=== PATIENT | female | born 1985 | race African-American/Black ===

== ENCOUNTER 2023-09-23 13:59 | Emergency (ER) | payer OTHER, SELFPAY ==
[2023-09-23 14:27] VITALS: BP 121/75; PULSE 87; RESP 18; TEMP 36.7; O2SAT 100; BMI 25.0
--- NOTE | 2023-09-23 14:29 | ED.GENADULT ---
HPI - General Adult General Chief complaint: Extremity Injury, Lower Stated complaint: fell down stairs r shoulder inj 09/13 Time Seen by Provider: 09/23/23 17:50 Source: patient Mode of arrival: ambulatory Limitations: no limitations History of Present Illness ED Provider: Evelyn FINNEGAN narrative: Patient is a 38-year-old female presenting to the emergency department with complaint of severe right shoulder pain. She reports that she fell down 4-5 stairs at work on 09/13 and that is when her pain began. She was evaluated in the emergency department at [facility] that day and diagnosed with a rotator cuff injury. She was offered pain control at that time but she declined as she has a 1-year-old and did not want any narcotic pain medication. She then followed up with [facility] orthopedics and was advised that she will need surgical repair of her rotator cuff injury. She has been alternating Tylenol and ibuprofen, but pain is severe. She states that she does not have her daughter with her for the next few days, so she would like something stronger for her pain. She attempted to contact the [facility] orthopedics office but was told they could not see her in the office until Saturday. She went to the [facility] urgent care and was offered a shot of toradol but no prescription and was advised to come to the ED for pain control. She denies any new numbness or tingling. complaint: right shoulder pain Related Data Previous Rx's ?Medication ?Instructions ?Recorded oxycodone 5 mg capsule 5 mg PO Q6H PRN severe pain (scale 09/23/23 score 7-10) #8 caps Allergies Allergy/AdvReac Type Severity Reaction Status Date / Time No Known Allergies Allergy Verified 09/23/23 14:31 Review of Systems Review of Systems: As per HPI. Yes all other systems are reviewed and are negative Constitutional: Constitutional: Reports as per HPI [facility] Social History Social History Advance Directives: No Advance Directives Information Provided: No Do you have a plan to hurt others: No Plan Physical Exam ED Vital Signs: Vital Signs - 24 hr 09/23/23 14:27 Temperature 98.1 F Pulse Rate 87 Respiratory Rate 18 Blood Pressure 121/75 Pulse Oximetry 100 Oxygen Delivery Method Room Air BMI result Body Mass Index 25.0 Vital signs have been reviewed and appear to be correct. Blood pressure normal. Heart rate normal. Respiratory rate normal. Temperature normal. Oxygen saturation normal. Const General: cooperative, healthy appearing and no acute distress Orientation/consciousness: oriented to person, oriented to place, oriented to time and patient oriented x3 Limitations: no limitations HENMT Head: Yes normocephalic and Yes atraumatic Ears: external ears normal General nose exam: Normal external nose present Face and sinus: Yes face symmetric Mouth: oropharynx normal and moist mucous membranes Throat: Yes uvula midline Eyes Pupils: Equal, round and reactive pupils present Neck Neck: Yes normal visual inspection and Yes supple Resp Effort & Inspection: normal respiratory effort and able to speak in complete sentences Auscultation: clear to auscultation bilaterally Cardio Rate: regular rate Rhythm: regular rhythm Heart sounds: S1 normal heart sound present and S2 normal heart sound present GI Palpation (GI): Soft to palpation and nontender Auscultation: normoactive bowel sounds General: Yes no CVA tenderness Back/Spine/Pelvis Back: no CVA tenderness Skin General skin exam: elasticity normal and turgor normal Neuro General: oriented to person, oriented to place, oriented to time, patient oriented x3, moves all extremities, no focal motor deficits and CN's II-XI intact bilaterally Cranial nerves: Yes Equal, round and reactive pupils present Cognition (Neuro): normal cognition Extrem General: Yes full ROM, Yes no pedal edema and Yes no calf tenderness Right upper extremity: shoulder/upper arm Details: normal to inspection and abnormal ROM Details: held in an abnormal fashion Details: in ADduction and with range as follows (extremely limited in all directions due to pain) and Extremity exam: right hand Details: vascular exam Details: radial pulse present and normal ROM of fingers Psych Mental Status: mental status grossly normal Affect: normal affect Thought process: Normal thought process present Course Course Course Narrative: RME performed by Frannie Garcia PA-C. Patient is a 38 year old assigned female at presenting to the emergency department with a right shoulder injury. Patient states that she was evaluated for this and found to have a rotator cuff injury. Patient states that the orthopedic group can't get her in any sooner than Saturday but recommended she come here for pain management. Detailed physical exam and review of systems are deferred to the primary school principal. Patient placed back in the waiting room pending room availability. Medical Decision Making Medical Decision Making MDM Narrative: Patient is a 38-year-old female presenting to the emergency department with complaint of severe right shoulder pain. On exam patient is awake, A+Ox3, VS WNL, afebrile, normal neurological exam without focal deficits, physical exam findings as above. Given reported symptoms and physical exam findings, initial differential includes rotator cuff strain/sprain/tear, uncontrolled pain. Do not feel additional imaging is indicated at this time as patient has already had evaluation and is waiting orthopedic management. Physical exam findings are consistent with rotator cuff injury. No concerns on review of PROTECTIVE SIGNAL INSTALLER HELPER. Will prescribe short course of oxycodone advised patient to continue with Tylenol and ibuprofen as well. Patient has follow-up appointment with [facility] Orthopedics on Saturday, 09/24. Return precautions discussed at bedside. Patient verbalized understanding of and agreement with plan. Differential Diagnosis Differential Diagnoses: The differential diagnosis associated with the presentation includes As per MDM. External Record Review External record reviewed: Inpatient record, Office record, Outpatient record and Other Tests considered The following testing was considered but not selected: Considered x-ray, however patient has already been evaluated at an outside emergency department for this injury. Prescription Management I considered prescription management with: Pain Medication Discharge Plan Discharge Clinical Impression: Acute pain of right shoulder Patient Disposition: Home, Self-Care Instructions: Oxycodone, Rapid Release (By mouth) Additional Instructions: You were seen in the emergency department today for pain control for known rotator cuff injury. You are being prescribed a short course of oxycodone to control your pain until follow-up with Orthopedics on Saturday. We recommend that you continue to alternate Tylenol and ibuprofen every 3 hours for pain and use the oxycodone for severe pain. Continue to apply ice intermittently. Return to the emergency department with new or concerning symptoms. Your prescription was sent to the [facility] at [address] [place] [address] in [place], [place]. Prescriptions: New oxycodone 5 mg capsule 5 mg PO Q6H PRN (Reason: severe pain (scale score 7-10)) Qty: 8 0RF Rx Instructions: Partial Fill upon patient request. Print Language: Gibraltarian
[2023-09-23 18:19] VITALS: BP 124/78; PULSE 72; RESP 16; TEMP 36.8; O2SAT 100
[2023-09-23 18:39] VITALS: BP 124/78; PULSE 72; RESP 16; TEMP 36.8; O2SAT 100
== END 2023-09-23 18:40 | disposition home or self-care (01) ==
PROVIDERS: Emergency Provider Student in an Organized Health Care Education/Training Program
DX: M25.511 Pain in right shoulder (principal)
CPT/HCPCS: 99282; 99283

== ENCOUNTER 2024-01-19 04:51 | Emergency (ER) | payer SELFPAY ==
[2024-01-19 05:03] VITALS: BP 125/87; PULSE 87; RESP 18; TEMP 36.6; O2SAT 99; BMI 26.8
--- NOTE | 2024-01-19 05:05 | ED.ABDPAIN ---
HPI - Abdominal Pain General Chief Complaint: Urogenital-Female Stated Complaint: vomiting Time Seen by Provider: 01/19/24 05:01 Source: patient Mode of arrival: ambulatory Limitations: no limitations History of Present Illness ED Provider: thad FINNEGAN narrative: Patient's history of medullary sponge kidney with multiple kidney stones status post stent placement supposed to get surgery for 9 mm and 10 mm stone in the right kidney been having pain off and on patient came here with a daughter who was sick during stay in the ER patient got more pain pain is localized to the right flank area no gross hematuria no fever or chills does have nausea and vomited 1 time in the ER patient has had CT scan ultrasound done prior to our evaluation Related Data Previous Rx's ?Medication ?Instructions ?Recorded oxycodone 5 mg capsule 5 mg PO Q6H PRN severe pain (scale 09/23/23 score 7-10) #8 caps ondansetron 4 mg disintegrating 4 mg PO Q6-8H PRN nausea and 01/19/24 tablet vomiting #7 tabs oxycodone-acetaminophen 5 mg-325 1 tab PO Q6H PRN pain #20 tabs 01/19/24 mg tablet (Percocet) tamsulosin 0.4 mg capsule (Flomax) 0.4 mg PO BEDTIME #10 caps 01/19/24 Allergies Allergy/AdvReac Type Severity Reaction Status Date / Time No Known Allergies Allergy Verified 01/19/24 05:11 Review of Systems Review of Systems Yes all other systems are reviewed and are negative PMFSH Past Medical History Medical History (Updated 01/19/24 @ 05:54 by Holger Davenport MD) Kidney stone Medullary sponge kidney Social History Social History Smoked in Last 30 Days: No Use of substances other than those prescribed or required for medical reasons: No Advance Directives: No Patient : No Physical Exam ED Vital Signs: Vital Signs - 24 hr 01/19/24 05:03 01/19/24 06:09 Temperature 97.8 F 97.8 F Pulse Rate 87 87 Respiratory Rate 18 18 Blood Pressure 125/87 125/87 Pulse Oximetry 99 99 Oxygen Delivery Method Room Air Room Air BMI result Body Mass Index 26.8 Appearance: Alert. Oriented X3. Moderate distress Eyes: PERRLA, No Nystagmus ENT: Pharynx normal. Oral Mucosa moist Neck: Normal inspection. Neck supple. CVS: Normal heart rate and rhythm. Pulses normal. Respiratory: No respiratory distress. Equal air entry bilateral, no wheezing/rales/rhonchi Abdomen: Soft and nontender. Bowel sounds are present, no mass palpable, right CVA tenderness Skin: Skin warm and dry. Normal skin color. Normal skin turgor. Neuro: Oriented X 3. Medications Administered Discontinued Medications Generic Name Dose Route Start Last Admin Trade Name Freq PRN Reason Stop Dose Admin Morphine Sulfate 15 mg 01/19/24 05:01 01/19/24 05:10 Morphine Sulfate Immed Release 15 Mg Tablet PO 01/19/24 05:02 15 mg ONCE ONE Administration Ondansetron HCl 4 mg 01/19/24 05:01 01/19/24 05:09 Ondansetron Odt 4 Mg Tab.Rapdis TRANSLINGU 01/19/24 05:02 4 mg ONCE ONE Administration Tamsulosin HCl 0.4 mg 01/19/24 05:02 01/19/24 05:10 Tamsulosin Hcl 0.4 Mg Capsule PO 01/19/24 05:03 0.4 mg ONCE ONE Administration Discharge Plan Discharge Clinical Impression: Kidney stone on right side Patient Disposition: Home, Self-Care Instructions: Kidney Stones (ED) Additional Instructions: Drink plenty of fluids Pain medication as prescribed Flomax daily till you pass the stone Follow up with urologist Prescriptions: New oxycodone-acetaminophen [Percocet] 5-325 mg tablet 1 tab PO Q6H PRN (Reason: pain) Qty: 20 0RF Rx Instructions: Partial Fill upon patient request. ondansetron 4 mg tablet,disintegrating 4 mg PO Q6-8H PRN (Reason: nausea and vomiting) Qty: 7 0RF tamsulosin [Flomax] 0.4 mg capsule 0.4 mg PO BEDTIME Qty: 10 0RF No Action oxycodone 5 mg capsule 5 mg PO Q6H PRN (Reason: severe pain (scale score 7-10)) Qty: 8 0RF Rx Instructions: Partial Fill upon patient request. Interventions: ED Discharge Assessment Last Done: 01/19/24 06:09 Discharge Date/Time: 01/19/24 06:14 Print Language: Palestinian
[2024-01-19] MEDS: Ondansetron ODT 4 MG TAB.RAPDIS TRANSLINGU (05:09)
[2024-01-19] MEDS: Morphine Sulfate Immed Release 15 MG TABLET PO (05:10)
[2024-01-19] MEDS: Tamsulosin HCL 0.4 MG CAPSULE PO (05:10)
[2024-01-19 06:09] VITALS: BP 125/87; PULSE 87; RESP 18; TEMP 36.6; O2SAT 99
== END 2024-01-19 06:14 | disposition home or self-care (01) ==
PROVIDERS: Emergency Provider Internal Medicine
DX: N20.0 Calculus of kidney (principal); R10.2 Pelvic and perineal pain; R11.2 Nausea with vomiting, unspecified; Z79.899 Other long term (current) drug therapy
CPT/HCPCS: 99284

== ENCOUNTER 2024-02-23 01:22 | Emergency (ER) | payer MEDICAID, SELFPAY ==
--- NOTE | ~2024-02-23 | CT_ITS ---
EXAMINATION: CT ABDOMEN AND PELVIS WITHOUT CONTRAST CLINICAL INFORMATION: Right flank pain COMPARISON: None available. TECHNIQUE: Multidetector volumetric imaging was performed from the superior aspect of the liver through the pubic symphysis. Sagittal and coronal reformatted images were obtained on the technologist's workstation. This CT examination was performed using dose optimization techniques as appropriate, variously including the following: *Automated exposure control *Adjustment of mA and/or kV according to patient size (this includes techniques or standardized protocols for targeted exams where dose is matched to indication/reason for exam; i.e. extremities or head) *Use of iterative reconstruction technique DLP: 555 mGy-cm FINDINGS: LUNG BASES: The visualized lung bases are unremarkable. LIVER, GALLBLADDER, AND BILIARY TREE: The liver is normal in size, shape, and attenuation. No focal hepatic lesion or biliary ductal dilatation is present. Dependent layering hyperdensity in the gradient distribution is present within the lumen of the gallbladder likely represents partial visualization of cholelithiasis or radiodense biliary sludge. No pericholecystic fluid collections or inflammatory changes noted. No biliary duct dilatation identified. PANCREAS: Unremarkable. SPLEEN: Unremarkable. ADRENAL GLANDS: Unremarkable. KIDNEYS AND URETERS: Multiple pelvic phleboliths are present. A single 1.5 mm x 2 mm calculus is present in the expected location of the distal right ureter 1 cm proximal to the right ureterovesicular junction measuring 1.5 mm x 2 mm (series 4 image 555). This finding may represent a distal right ureteral calculus or phlebolith in close proximity to the distal right ureter. Multiple additional pelvic phleboliths are present. No ureterectasis identified. No hydronephrosis or perinephric inflammatory changes visualized. 2. Calculi are present in the medial right renal pelvis, the largest measuring 6 mm x 4 mm and the other measuring 5 mm x 3 mm. (1400 Hounsfield units). 4 punctate calculi are identified within the left renal pelvis, the largest measuring 6 mm x 2 mm. BLADDER: Decompressed GASTROINTESTINAL TRACT: Normal appearance of the appendix. No free intraperitoneal fluid or gas collections. No intestinal dilatation or mural thickening. Normal appearance of the stomach and duodenum. ABDOMINAL WALL: Partial visualization of bilateral breast prostheses. No intestinal herniations. LYMPH NODES: Normal. VASCULAR: Unremarkable. PELVIC VISCERA: Normal appearance of the uterus. No adnexal lesions. OSSEOUS STRUCTURES: No suspicious skeletal abnormalities. CT/CT abdomen pelvis wo IV con IMPRESSION: 1. Single 1.5 mm x 2 mm calculus in the expected location of the distal right ureter 1 cm proximal to the right ureterovesicular junction. This finding may represent a distal right ureteral calculus or phlebolith in close proximity to the distal right ureter. Multiple additional pelvic phleboliths are present. No ureterectasis. No hydronephrosis or perinephric inflammatory changes. 2. Multiple bilateral nonobstructing renal calculi. Largest discrete renal calculus measures 6 mm x 4 mm and is present in the medial interpolar segment of the right kidney. 3. Normal appendix. 4. Radiodensity within the lumen of the gallbladder which may represent any combination of cholelithiasis and radiodense biliary sludge. 5. Electronically signed by: Sterling Onofre MD 02/23/2024 03:15 AM MICHELLE
[2024-02-23 01:27] VITALS: BP 124/89; PULSE 96; RESP 22; TEMP 37; O2SAT 98; BMI 25.4
[2024-02-23] MEDS: 0.9 % Sodium Chloride 1,000 ML 999 ML IV (01:56)
[2024-02-23] MEDS: Morphine Sulfate 4 MG/ML CARTRIDGE IVPUSH (01:57)
[2024-02-23] MEDS: ondansetron HCL 4 MG/2 ML VIAL IVPUSH (01:57)
[2024-02-23] MEDS: Ketorolac Tromethamine 15 MG/ML VIAL IVPUSH (01:57)
[2024-02-23 01:58] LABS: MANUAL DIFF FLAG NO
[2024-02-23 02:00] LABS: Basophils Percent Auto 0.2 % (0-2); Eosinophils Percent Auto 0.4 % (0-4); Hematocrit 36.8 % (37.0-47.0); Hemoglobin 12.6 g/dl (12.0-16.0); Imm Gran Abs Auto 0.02 X10*3/uL (0.00-0.03); Imm Gran Pct Auto 0.2 % (0.0-0.4); Lymphocytes Absolute Auto 2.9 X10*3/uL (1.2-4.9); Lymphocytes Percent Auto 27.2 % (20-40); Mean Corpuscular HGB Conc 34.2 g/dl (31.0-35.0); Mean Corpuscular Hemoglobin 30.9 pg (27.0-33.0); Mean Corpuscular Volume 90.2 fL (80.0-98.0); Mean Platelet Volume 10.7 fL (9.4-12.3); Monocytes Absolute Auto 0.6 X10*3/uL (0.1-1.2); Monocytes Percent Auto 5.4 % (2-11); Neutrophils Percent Auto 66.6 % (45-73); Platelet Count 290 X10*3/uL (160-400); Red Blood Count 4.08 X10*6/uL (4.20-5.50); Red Cell Distribution Width 11.9 % (11.0-16.0); White Blood Count 10.5 X10*3/uL (4.8-10.8)
[2024-02-23 02:24] LABS: Alanine Aminotransferase 11 U/L (0-31); Albumin Level 4.7 g/dL (3.5-5.0); Alkaline Phosphatase 54 U/L (39-117); Anion Gap 13 (12-20); Aspartate Amino Transferase 17 U/L (5-31); Bilirubin Total 0.9 mg/dL (0.0-1.0); Blood Urea Nitrogen 8 mg/dL (9-16); Calcium 9.6 mg/dL (8.4-10.2); Carbon Dioxide 24 mmol/L (22-29); Chloride 109 mmol/L (96-108); Creatinine Clr Calc Pharmacy 91.7; Estimated Glomerular Filt Rate > 60; Glucose Random 112 mg/dL (60-115); HCG Quantitative < 2 mIU/mL; Lipase 12 U/L (8-78); Potassium 3.9 mmol/L (3.3-5.1); Sodium 142 mmol/L (135-145); Total Protein 7.6 g/dL (6.5-8.0)
--- NOTE | 2024-02-23 03:59 | ED_ITS ---
HPI - Abdominal Pain General Chief Complaint: Abdominal Pain Stated Complaint: gen med Time Seen by Provider: 02/23/24 02:40 Source: patient Mode of arrival: ambulatory Limitations: no limitations History of Present Illness ED Provider: Dr. Farrah Meza HPI narrative: Patient comes to the emergency room complaining of right-sided flank pain for 5 days, nose and vomiting. Patient states that she has had kidney stones in the past and feels similar. Patient denies any fever chills, denies hematuria. Related Data Previous Rx's ?Medication ?Instructions ?Recorded oxycodone 5 mg capsule 5 mg PO Q6H PRN severe pain (scale 09/23/23 score 7-10) #8 caps ondansetron 4 mg disintegrating 4 mg PO Q6-8H PRN nausea and 01/19/24 tablet vomiting #7 tabs oxycodone-acetaminophen 5 mg-325 1 tab PO Q6H PRN pain #20 tabs 01/19/24 mg tablet (Percocet) tamsulosin 0.4 mg capsule (Flomax) 0.4 mg PO BEDTIME #10 caps 01/19/24 ketorolac 10 mg tablet 10 mg PO TID PRN pain #12 tabs 02/23/24 ondansetron 4 mg disintegrating 4 mg PO Q6H PRN nausea and 02/23/24 tablet vomiting #14 tabs prednisone 20 mg tablet 20 mg PO DAILY #3 tabs 02/23/24 tamsulosin 0.4 mg capsule 0.4 mg PO DAILY #20 caps 02/23/24 Allergies Allergy/AdvReac Type Severity Reaction Status Date / Time No Known Allergies Allergy Verified 02/23/24 01:29 Review of Systems Review of Systems Constitutional : No Weight loss, No Fever, No Chills, No Night Sweats, No Fatigue, No Malaise ENT/Mouth : No Hearing loss, No Ear Pain, No Nasal Congestion, No Sinus Pain, No Hoarseness, No sore throat, No Rhinorrhea, No Swallowing Difficulty Eyes: No Eye Pain, No Swelling, No Redness, No Foreign Body, No Discharge, No Vision Changes Cardiovascular : No Chest Pain, No SOB, No Dyspnea on Exertion, No Orthopnea, No Edema, No Palpitations Respiratory : No Cough, No Sputum, No Wheezing, No Smoke Exposure, No Dyspnea Gastrointestinal : Complaining of nausea and vomiting No Diarrhea, No Constipation, No abdominal Pain, No Hematochezia, No Melena Genitourinary : no irregular bleeding, No Dysuria, No Urinary Frequency, No Hematuria, No Urinary Incontinence, No Urgency, complaining of right CVA tenderness/ Flank Pain, No Urinary Flow Changes, No Hesitancy Musculoskeletal : No joint pain, No Myalgias, No Joint Swelling Skin : No Skin Lesions, No rash Neuro : No Weakness, No Numbness, No Paresthesias, No Loss of Consciousness, No Dizziness, No Headache Psych : No Anxiety/Panic, No Depression, No SI/HI/AH/VH, No Social Issues, Heme/Lymph: No Bruising, No Bleeding,No Lymphadenopathy Endocrine : No Polyuria, No Polydipsia, No Temperature Intolerance [facility] Past Medical History Medical History Kidney stone Medullary sponge kidney Social History Social History Advance Directives: No Advance Directives Information Provided: Yes Physical Exam ED Vital Signs: Vital Signs - 24 hr 02/23/24 01:27 02/23/24 04:09 02/23/24 06:16 Temperature 98.6 F 98.2 F 98 F Pulse Rate 96 74 85 Respiratory Rate 22 H 16 16 Blood Pressure 124/89 115/72 119/73 Pulse Oximetry 98 98 97 Oxygen Delivery Method Room Air Room Air Room Air BMI result Body Mass Index 25.4 Const Other: Appearance: Alert. Oriented X3. Patient looks uncomfortable Eyes: Pupils equal, round and reactive to light. ENT: Pharynx normal. Neck: Normal inspection. Neck supple. No lymph nodes noted. No crepitus CVS: Normal heart rate and rhythm. Pulses normal. Normal S1 and S2 Respiratory: No respiratory distress. Breath sounds normal. No Wheezing. No rales Abdomen: Soft , mild discomfort to palpation in the upper and lower right quadrants with mostly over the right flank, No rigidity. No distention. Skin: Skin warm and dry. Normal skin color. Normal skin turgor. Extremities: No lower extremity edema. No Lacerations. No Rash Neuro: Oriented X 3. No motor deficit. No sensory deficit. Moving all extremities. No slurred speech. CN 2 through 12 grossly intact Psych: calm, cooperative, normal affect Course Course Course Narrative: Patient receiving IV fluids, ketorolac, IV morphine, Zofran. Medical Decision Making Medical Decision Making [facility] Narrative: My interpretation of hematology and chemistry, no obvious abnormality. CT scan shows a stone in the right distal ureter. Urinalysis pending positive for UTI. -overall, patient states that she feels better and would prefer to go home. I discussed with the patient admission/observation. At this time, patient feeling much better. Patient will be seen with home medication, tamsulosin, 1st dose of antibiotics given in the ED, p.o. levofloxacin. -I discussed with the patient that if she has any worsening pain, she needs to come to the emergency room, possibly plan for admission. Of note, patient has not had any episodes of tachycardia fever or hypotension, sepsis is not suspected Differential Diagnosis Differential Diagnoses: The differential diagnosis associated with the presentation includes (Pyelonephritis, ureterolithiasis) Admission/Observation Consideration of admission/observation: Escalation of care including admission/observation considered Lab Data [facility] Lab Attestation statement: I reviewed the patient's lab results. 02/23/24 01:54 02/23/24 01:54 Labs: Lab Results 02/23/24 02/23/24 Range/Units 01:54 04:12 WBC 10.5 (4.8-10.8) X10*3/uL RBC 4.08 L (4.20-5.50) X10*6/uL Hgb 12.6 (12.0-16.0) g/dl Hct 36.8 L (37.0-47.0) % MCV 90.2 (80.0-98.0) fL MCH 30.9 (27.0-33.0) pg MCHC 34.2 (31.0-35.0) g/dl RDW 11.9 (11.0-16.0) % Plt Count 290 (160-400) X10*3/uL MPV 10.7 (9.4-12.3) fL Immature Gran % (Auto) 0.2 (0.0-0.4) % Neut % (Auto) 66.6 (45-73) % Lymph % (Auto) 27.2 (20-40) % [place] % (Auto) 5.4 (2-11) % Eos % (Auto) 0.4 (0-4) % Baso % (Auto) 0.2 (0-2) % Lymph # (Auto) 2.9 (1.2-4.9) X10*3/uL [place] # (Auto) 0.6 (0.1-1.2) X10*3/uL Eos # (Auto) 0.0 (0.0-0.4) X10*3/uL Baso # (Auto) 0.0 (0.0-0.2) X10*3/uL Abs Immat Gran (auto) 0.02 (0.00-0.03) X10*3/uL Absolute Neuts (auto) 7.0 (2.0-8.3) x10*3/uL Absolute Nucleated RBC 0.000 (0.0-0.012) X10*3/uL Nucleated RBC % (auto) 0.0 (0.0-0.2) /100WBC Sodium 142 (135-145) mmol/L Potassium 3.9 (3.3-5.1) mmol/L Chloride 109 H (96-108) mmol/L Carbon Dioxide 24 (22-29) mmol/L Anion Gap 13 (12-20) BUN 8 L (9-16) mg/dL Creatinine 0.85 (0.5-1.4) mg/dL Estim Creat Clear Calc 91.7 Estimated GFR > 60 Random Glucose 112 (60-115) mg/dL Calcium 9.6 (8.4-10.2) mg/dL Magnesium 2.0 (1.6-2.6) mg/dL Total Bilirubin 0.9 (0.0-1.0) mg/dL AST 17 (5-31) U/L ALT 11 (0-31) U/L Alkaline Phosphatase 54 (39-117) U/L Total Protein 7.6 (6.5-8.0) g/dL Albumin 4.7 (3.5-5.0) g/dL Lipase 12 (8-78) U/L Beta HCG, Quant < 2 mIU/mL Urine Color Dark Yellow Urine Appearance Cloudy Urine pH 6.0 (5.0-9.0) Ur Specific [place] 1.025 (1.005-1.025) Urine Protein 100 (2+) H (Neg-Trace) mg/dL Urine Glucose (UA) Negative (Negative) mg/dL Urine Ketones Trace (Negative) mg/dL Urine Blood Large (3+) H (Negative) Urine Nitrite Negative (Negative) Ur Leukocyte Esterase Small (1+) H (Negative) Urine RBC >20 H (0-2) /HPF Urine WBC 21-50 H (0-5) /HPF Ur Squamous Epith Cells 3-5 (0-2) /HPF Urine Bacteria 2+ (None Seen) Hyaline Casts 0-2 (0-2) /LPF Independent Interpretation I performed an independent interpretation of an: CT Scan Radiology Impression Discussion of test interpretation with radiology: I have reviewed the radiologist's reading. Radiologist Impression: FINDINGS: LUNG BASES: The visualized lung bases are unremarkable. LIVER, GALLBLADDER, AND BILIARY TREE: The liver is normal in size, shape, and attenuation. No focal hepatic lesion or biliary ductal dilatation is present. Dependent layering hyperdensity in the gradient distribution is present within the lumen of the gallbladder likely represents partial visualization of cholelithiasis or radiodense biliary sludge. No pericholecystic fluid collections or inflammatory changes noted. No biliary duct dilatation identified. PANCREAS: Unremarkable. SPLEEN: Unremarkable. ADRENAL GLANDS: Unremarkable. KIDNEYS AND URETERS: Multiple pelvic phleboliths are present. A single 1.5 mm x 2 mm calculus is present in the expected location of the distal right ureter 1 cm proximal to the right ureterovesicular junction measuring 1.5 mm x 2 mm (series 4 image 555). This finding may represent a distal right ureteral calculus or phlebolith in close proximity to the distal right ureter. Multiple additional pelvic phleboliths are present. No ureterectasis identified. No hydronephrosis or perinephric inflammatory changes visualized. 2. Calculi are present in the medial right renal pelvis, the largest measuring 6 mm x 4 mm and the other measuring 5 mm x 3 mm. (1400 Hounsfield units). 4 punctate calculi are identified within the left renal pelvis, the largest measuring 6 mm x 2 mm. BLADDER: Decompressed GASTROINTESTINAL TRACT: Normal appearance of the appendix. No free intraperitoneal fluid or gas collections. No intestinal dilatation or mural thickening. Normal appearance of the stomach and duodenum. ABDOMINAL WALL: Partial visualization of bilateral breast prostheses. No intestinal herniations. LYMPH NODES: Normal. VASCULAR: Unremarkable. PELVIC VISCERA: Normal appearance of the uterus. No adnexal lesions. OSSEOUS STRUCTURES: No suspicious skeletal abnormalities. CT/CT abdomen pelvis wo IV con IMPRESSION: 1. Single 1.5 mm x 2 mm calculus in the expected location of the distal right ureter 1 cm proximal to the right ureterovesicular junction. This finding may represent a distal right ureteral calculus or phlebolith in close proximity to the distal right ureter. Multiple additional pelvic phleboliths are present. No ureterectasis. No hydronephrosis or perinephric inflammatory changes. 2. Multiple bilateral nonobstructing renal calculi. Largest discrete renal calculus measures 6 mm x 4 mm and is present in the medial interpolar segment of the right kidney. 3. Normal appendix. 4. Radiodensity within the lumen of the gallbladder which may represent any combination of cholelithiasis and radiodense biliary sludge. 5. Medications Administered Discontinued Medications Generic Name Dose Route Start Last Admin Trade Name Freq PRN Reason Stop Dose Admin Hydromorphone HCl 1 mg 02/23/24 04:08 02/23/24 04:19 Hydromorphone Hcl 1 Mg/Ml Syringe IVPUSH 02/23/24 04:09 1 mg ONCE ONE Administration Protocol Sodium Chloride 1,000 mls @ 999 mls/hr 02/23/24 01:45 02/23/24 01:56 Ns IV 02/23/24 02:45 999 mls/hr .Q1H1M JASMEET Administration Ketorolac Tromethamine 15 mg 02/23/24 01:41 02/23/24 01:57 Ketorolac Tromethamine 15 Mg/Ml Vial IVPUSH 02/23/24 01:42 15 mg ONCE ONE Administration Morphine Sulfate 4 mg 02/23/24 01:41 02/23/24 01:57 Morphine Sulfate 4 Mg/Ml Cartridge IVPUSH 02/23/24 01:42 4 mg ONCE ONE Administration Protocol Ondansetron HCl 4 mg 02/23/24 01:41 02/23/24 01:57 Ondansetron Hcl 4 Mg/2 Ml Vial IVPUSH 02/23/24 01:42 4 mg ONCE ONE Administration Prochlorperazine Edisylate 10 mg 02/23/24 04:08 02/23/24 04:19 Prochlorperazine Edisylate 10 Mg/2 Ml Vial IVPUSH 02/23/24 04:09 10 mg ONCE ONE Administration Critical Care Time Critical Care Time Critical Care Time: Yes Total Critical Care Time: 60 Attestation: I have personally provided critical care time. Time includes review of lab data, radiology results, discussion with consultants, and monitoring for potential decompensation. Intervention performed as documented. Discharge Plan Discharge Clinical Impression: Ureterolithiasis Patient Disposition: Home, Self-Care Instructions: Kidney Stones (ED) Additional Instructions: Please follow-up with your primary care physician tomorrow. If you have any worsening or new symptoms, please return to the emergency room or call 911 Prescriptions: New tamsulosin 0.4 mg capsule 0.4 mg PO DAILY Qty: 20 0RF prednisone 20 mg tablet 20 mg PO DAILY Qty: 3 0RF ketorolac 10 mg tablet 10 mg PO TID PRN (Reason: pain) Qty: 12 0RF ondansetron 4 mg tablet,disintegrating 4 mg PO Q6H PRN (Reason: nausea and vomiting) Qty: 14 0RF No Action oxycodone 5 mg capsule 5 mg PO Q6H PRN (Reason: severe pain (scale score 7-10)) Qty: 8 0RF Rx Instructions: Partial Fill upon patient request. oxycodone-acetaminophen [Percocet] 5-325 mg tablet 1 tab PO Q6H PRN (Reason: pain) Qty: 20 0RF Rx Instructions: Partial Fill upon patient request. ondansetron 4 mg tablet,disintegrating 4 mg PO Q6-8H PRN (Reason: nausea and vomiting) Qty: 7 0RF tamsulosin [Flomax] 0.4 mg capsule 0.4 mg PO BEDTIME Qty: 10 0RF Referrals: Juan Manuel Alas MD [Physician] - 03/02/24 Print Language: [place]
[2024-02-23 04:09] VITALS: BP 115/72; PULSE 74; RESP 16; TEMP 36.8; O2SAT 98
[2024-02-23 04:19] LABS: Appearance Urine Cloudy; Color Urine Dark Yellow; Glucose Urine UA Negative (Negative); Leukocyte Esterase Urine Small (1+) (Negative); Nitrite Urine Negative (Negative); Specific Gravity - Urine 1.025 (1.005-1.025); UMIC TRIGGER UACC YES; Urine Blood Large (3+) (Negative); Urine Ketones Trace mg/dL (Negative); Urine Protein 100 (2+) mg/dL (Neg-Trace)
[2024-02-23] MEDS: HYDROmorphone HCl 1 MG/ML SYRINGE IVPUSH (04:19)
[2024-02-23] MEDS: Prochlorperazine Edisylate 10 MG/2 ML VIAL IVPUSH (04:19)
[2024-02-23 04:24] LABS: Bacteria Urine 2+ (None Seen); Hyaline Casts Urine 0-2 /LPF (0-2); RBC Urine >20 /HPF (0-2); UACC Culture Trigger YES; WBC Urine 21-50 /HPF (0-5)
[2024-02-23 06:16] VITALS: BP 119/73; PULSE 85; RESP 16; TEMP 36.6; O2SAT 97
[2024-02-23] MEDS: levoFLOXacin 500 MG TABLET PO (06:59)
[2024-02-23 07:14] VITALS: BP 119/73; PULSE 85; RESP 18; TEMP 36.7; O2SAT 98
== END 2024-02-23 07:15 | disposition home or self-care (01) ==
PROVIDERS: Physician Assistant Medical; Emergency Provider Emergency Medicine
DX: N20.1 Calculus of ureter (principal); R10.2 Pelvic and perineal pain; Z79.899 Other long term (current) drug therapy; Z87.442 Personal history of urinary calculi
CPT/HCPCS: 36415; 74176; 80053; 81001; 83690; 83735; 84702; 85025; 87086; 96361; 96374; 96375; 99284; 99285; J0737; J1171; J1885; J2270; J2405

== ENCOUNTER 2024-11-13 09:44 | Emergency (ER) | payer OTHER, SELFPAY ==
--- OUTSIDE RECORDS SUMMARY | 2014-04-13 11:28 | XMS_ITS | Continuity of Care Document ---
Author Organization [facility] Care Team Address [address] [place] [address] Phone Care Team Providers Care Campus Dean Name Role Phone Provider1, First Unavailable Unavailable Advance Directives Directive Yes / No Effective Date File Name No Information Encounters Encounter Description Practice Location Reason(s) For Visit Diagnoses Date Provider Providers Copied on Encounter [facility] Team, [address] [place], [address], [place] tel:[phone] [facility] No Information Provider1 First. . Family History Family Member Type Diagnosis Age At Onset No Information Payers Payer name Insurance type Covered democrat ID Authoriza tion(s) No Information Social History [...]
--- OUTSIDE RECORDS SUMMARY | 2024-09-07 12:34 | XMS_ITS | Continuity of Care Document ---
Author Organization [facility] Address [address] [place] [phone] Phone Care Team Providers Care Slate Mixer Name Role Phone Tiffanie Albarran MD Unavailable [...] ESTAB PT 15 MIN [address] Light Cleaner Screen 010 URINE DIP NON-AUTO WITHOUT MICRO [...] Diagnoses Date Provider Providers Copied on Encounter [employer] [address] [place] [address], [id number] , [phone] [facility] No Information 5 Deion Moreno. [address] [place], [place], [id number], . tel:[phone] Indiv.Psycho therapy 30 Minutes(16-3 7) [facility] [address] [place], [place], [id number] , [phone] [facility] Major depressive disorder, recurrent, unspecified 4 Reena Arce. [address] [place], [address], . tel:[phone] Referring Provider: Tiffanie Albarran, [address] [place] [address], [address]. tel:[phone] OFFICE/OUTPA TIENT VISIT EST PT 20-29 MINS [facility] [address] [place] [address], [id number] , [place] tel: [phone] [facility] Follow Up of Anxiety (chief complaint)MD Note (chief complaint) Body mass index (BMI) 24.0-24.9, adultGAD (generalized anxiety disorder) 4 Deion Moreno. [address] [place], [place], [id number], [place]. tel:[phone] Referring Provider: Tiffanie Albarran, [address] [facility], [place], [address]. tel:[phone] OFFICE/OUTPA TIENT VISIT EST PT 20-29 MINS [facility] [address] [place] [address], [id number] , [place] tel: [phone] [facility] letter (chief complaint)Anx iety (chief complaint) Anxiety and depression 4 [facility]. [address], [place], [address], [place]. tel:[phone] Referring Provider: Tiffanie Albarran, [address] [place], [place] [address], [place], [address]. tel:[phone] OFFICE VISIT ESTAB PT 30-39 MIN [facility] [address] [place] [address], [id number] , [place] tel: [phone] [facility] Work Letter (chief complaint) Depressive disorderBila teral leg weaknessGAD (generalized anxiety disorder)Mark sea and vomiting in adultKidney stones 3 Deion Moreno. [address] [place], [place], [id number], [place]. tel:[phone] Referring Provider: Tiffanie Albarran, [facility] [place], [address]. tel:[phone] OFFICE VISIT ESTAB PT 40-54 MIN [facility] [address] [place] [address], [id number] , [place] tel:[phone] Anxiety (chief complaint)Tel ephone visit (chief complaint) Kidney stonesRight leg weaknessAnxi ety and depressionDe pression, unspecifiedS creening for diabetes mellitusScre ening cholesterol levelScreeni ng for thyroid disorderOthe r technician terminal and repeater (current) drug therapy 3 Pasha Adriana. [address] [place], [address], [place]. tel:[phone] Referring Provider: Tiffanie Albarran, [address] [place], [address]. tel:[phone] OFFICE/OUTPA TIENT VISIT EST PT 20-29 MINS [facility] [address] [place] [address], [id number] , [place] tel: [facility] MD Note (chief complaint) Leg weakness, bilateral 3 Deion Moreno. [address] [place], [place], [id number], [place]. tel:[phone] Referring Provider: Tiffanie Albarran, [address] [place], [address]. tel:[phone] OFFICE/OUTPA TIENT VISIT EST PT 20-29 MINS [facility] [address] [place] [address], [id number] , [place] tel: [phone] [facility] Right leg weakness (chief complaint)Tel ehealth (chief complaint) Weakness of right lower extremityRen al calculus 3 Khalif Rodriguez. [address] [place], [address], [place]. tel:[phone] Referring Provider: Tiffanie Albarran, [address] [place], [address]. tel:[phone] OFFICE/OUTPA TIENT VISIT EST PT 20-29 MINS [facility] [address] [place] [address], [id number] , [place] tel: [phone] [address] [place] [address] infertility (chief complaint)add (chief complaint) Infertility management 1 Nic Maya. [address] [place], [address], [place]. tel:[phone] Referring Provider: Tiffanie Albarran, [address] [place], [address]. tel:[phone] [facility] [address] [place] [address], [id number] , [place] tel: [address] [place] [address] No Information 0 Ulises you RN. [address] [place], [address], [place]. OFFICE/OUTPA TIENT VISIT, [facility] [address] [place] [address], [id number] , [place] tel: [address] [place] [address] Telehealth visit (chief complaint) Abdominal pain with vomitingVomi ting, unspecified 0 Jarod Mendoza. [address] [place], [address], [place]. tel:[phone] Referring Provider: Reji Olivera, [address] [place], [address]. tel:[phone] OFFICE/OUTPA TIENT VISIT, [facility] [address] [place] [address], [id number] , [place] tel: [facility] Vomiting (chief complaint) Body mass index (BMI) 22.0-22.9, adultGastroe nteritis 9 Jenn Rm. [address] [place], [address], [place]. tel:[phone] Referring Provider: Sujey Barajas, [address] [place], [address]. tel:[phone] OFFICE/OUTPA TIENT VISIT, [facility] [address] [place] [address], [id number] , [place] tel: [facility] Follow Up of ED/Abdominal pain (chief complaint) Body mass index (BMI) 19.9 or less, adultCalculu s of kidney 9 Leisa Frias. [address] [place], [place], [id number], [place]. tel: [phone] Referring Provider: Rodriguez De La Fuente, 39 [facility], [place], [address]. tel: [phone] [employer] [address] [place] [address], [id number] , [place] tel: [phone] [facility] 9 Anette Weldon. [address], [place], [place], [id number], [place]. tel: [phone] Referring Provider: Fatemeh Cheema, [address], [place], [address]. tel: [phone] [employer] [address] [place] [address], [id number] , [place] tel: [phone] [facility] examination 9 Anette Weldon. [address], [place], [place], [id number], [place]. tel: [phone] Referring Provider: Fatemeh Cheema, [address], [place], [address]. tel: [phone] [employer] [address] [place] [address], [id number] , [place] tel: [phone] [facility] examination 8 Anette Weldon. [address], [place], [place], [id number], [place]. tel: [phone] Referring Provider: Fatemeh Cheema, [address], [place], [address]. tel: [phone] [employer] [address] [place], [id number] , [place] tel: [phone] [facility] examination Joshua Delaney. [address] [facility], [place], [address], [place]. tel:[phone] Referring Provider: Rhett Lewis, [address] [place], [address]. tel:[phone] [facility] [address] [place] [address], [id number] , [place] tel: [phone] [facility] examination 8 Anette Weldon. [address] [place], [place], [id number], [place]. tel:[phone] OFFICE/OUTPA TIENT VISIT, EST [facility] [address] [place] [address], [id number] , [place] tel:[phone] [facility] trying to conceive (chief complaint)Dys pareunia (chief complaint) Dyspareunia in female 8 Luigi Stuart. [address] [place], [address], [place]. tel:[phone] [facility], [address] [place] [address], [id number] , [place] tel: [phone] [facility] flu (chief complaint) Encounter for oth general cnsl and advice on contraceptio nEncounter for reversal of previous sterilizatio n 8 No Information OFFICE/OUTPA TIENT VISIT, EST [employer] [address] [place] [address], [id number] , [place] tel:[phone] [facility] Post-surgical Pain (chief complaint) Acute abdomen 8 Cardona Gina. [address] [place], [address], [place]. tel:[phone] Referring Provider: Kiko Hicks, [address] [place], [address]. tel:[phone] OFFICE VISIT ESTAB PT 25 MIN [employer] [address] [place] [address], [id number] , [place] tel: [phone] [facility] back pain (chief complaint) Other acute back pain 8 Konrad Katina. [address] [place] [address], [id number], [place]. tel:[phone] [employer] [address] [place] [address], [id number] , tel: [phone] [facility] examination 7 Odilon Castaneda. [address] [place] [address], [id number], [place]. tel:[phone] Referring Provider: Leonel Donald, [address] [place] [address], [address]. tel:[phone] [facility] [address] [place] [address], [id number] , tel: [phone] [facility] examination 7 Yfn Hanson. [address] [place] [address], [address], [place]. tel: [phone] Referring Provider: Margie Coulter, [address] [place] [address], [address]. tel: [phone] OFFICE VISIT ESTAB PT 25 MIN [employer] [address] [place] [address], [id number] , tel: [phone] [facility] Follow Up of Depression (chief complaint) Calculus of kidney with calculus of ureterMajor depressive disorder, single episode, unspecified Apr-0 4-201 7 Hofstetter Katherene. [address] [place] [address], [id number], [place]. tel:[phone] Referring Provider: Tayler Monte, [address] [place] [address], [address]. tel: [phone] OFFICE VISIT ESTAB PT 25 MIN [employer] [address] [place] [address], [id number] , [place] tel: [phone] [facility] Follow Up of Depression (chief complaint) Major depressive disorder, single episode, unspecified Mar-0 7-201 7 Hofstetter Katherene. [address] [place] [address], [id number], [place]. tel: [phone] Referring Provider: Tayler Monte, [address] [place] [address], [address]. tel:[phone] OFFICE VISIT ESTAB PT 25 MIN [employer] [address] [place] [address], [id number] , tel: [phone] [facility] Follow Up of Depression (chief complaint) Major depressive disorder, recurrent, unspecified 7 Oniel Lang. [address] [place] [address], [id number], [place]. tel: [phone] Referring Provider: Tayler Monte, [address] [place] [address], [address]. tel:[phone] Indiv.Psycho therapy 45 Minutes [employer] [address] [place] [address], [id number] , tel: [facility] Anxiety (chief complaint)Dep ression (chief complaint)Str essed (chief complaint)Sle ep disturbance (chief complaint) Major depressive disorder, recurrent, unspecifiedP ost-traumati c stress disorder, chronic 7 [place], [address], [place]. tel:[phone] Referring Provider: Tayler Monte, [address] [place] [address], [address]. tel:[phone] OFFICE/OUTPA TIENT VISIT, [facility] [address] [place] [address], [id number] , [place] tel: [phone] [facility] Follow Up of Depression (chief complaint) Depression 7 Oniel Lang. [address] [place] [address], [id number], [place]. tel: [phone] Referring Provider: Tayler Monte, [address] [place] [address], [address]. tel:[phone] OFFICE/OUTPA TIENT VISIT, [facility] [address] [place] [address], [id number] , tel: [facility] Follow Up of Depression (chief complaint) Major depressive disorder, recurrent, unspecified Dec-1 6- 6 Lavell Lester. [address] [place] [address], [id number], [place]. tel:[phone] Referring Provider: Tayler Monte, [address] [place] [address], [address]. tel:[phone] OFFICE/OUTPA TIENT VISIT, [employer] [address] [place] [address], [id number] , [place] tel: [facility] Follow Up of Depression (chief complaint) Major depressive disorder, recurrent, unspecifiedL eft flank pain Dec-0 9- 6 Lavell Lester. [address] [place] [address], [id number], [place]. tel:[phone] Referring Provider: Tayler Monte, [address] [place] [address], [address]. tel:[phone] OFFICE/OUTPA TIENT VISIT, [employer] [address] [place] [address], [id number] , tel: [facility] depression (chief complaint) Depression Dec-0 6 Khalif Rodriguez. [address] [place], [address], [place]. tel: [phone] Referring Provider: Tayler Monte, [address] [place] [address], [address]. tel:[phone] OFFICE/OUTPA TIENT VISIT, [employer] [address] [place], [place], [id number] , [place] tel: [phone] [facility] Follow Up of Depression (chief complaint) Major depressive disorder, recurrent, unspecifiedE pigastric painLeft flank pain Nov-2 3- 6 Lavell Lester. [address] [place] [address], [id number], [place]. tel:[phone] Referring Provider: Tayler Monte, [address] [place] [address], [address]. tel:[phone] OFFICE/OUTPA TIENT VISIT, [employer] [address] [place] [address], [id number] , [place] tel: [phone] [facility] Follow Up of Depression (chief complaint) Major depressive disorder, recurrent, unspecified 6 Lavell Lester. [address] [place] [address], [id number], [place]. tel:[phone] Referring Provider: Tayler Monte, [address] [place] [address], [address]. tel:[phone] [employer] [address] [place] [address], [id number] , tel:[phone] [facility] Depression (chief complaint)Sle ep disturbance (chief complaint)Harvinder etite loss (chief complaint) Major depressive disorder, recurrent, unspecified 6 [place], [address], [place]. tel: [phone] Referring Provider: Tayler Monte, [address] [place] [address], [address]. tel:[phone] OFFICE/OUTPA TIENT VISIT, [employer] [address] [place] [address], [id number] , [place] tel: [phone] [facility] Follow Up of Depression (chief complaint) Depression, unspecified depression typeLeft flank pain 6 Lavell Lester. [address] [place] [address], [id number], [place]. tel:[phone] Referring Provider: Tayler Monte, [address] [place] [address], [address]. tel:[phone] OFFICE/OUTPA TIENT VISIT, [employer] [address] [place] [address], [id number] , [place] tel: [phone] [facility] Follow Up of Depression (chief complaint)Fol low Up of gastritis (chief complaint) Depression, unspecified depression type Sep-2 3-201 6 Monte Tayler. [address] [place] [address], [id number], [place]. tel:[phone] Referring Provider: Tayler Monte, [address] [place] [address], [address]. tel:[phone] [employer] [address] [place] [address], [id number] , [place] tel: [phone] [facility] Sep-2 0-201 6 Donald Leonel. [address] [place] [address], [id number], [place]. tel:[phone] Referring Provider: Margie Coulter, [address] [place] [address], [address]. tel: [phone] OFFICE VISIT ESTAB PT 25 MIN [facility], [address] [place] [address], [id number] , [place] tel: [phone] [facility] Follow Up of ER (chief complaint)Dep ression (chief complaint)abd ominal pain (chief complaint) Depression, unspecified depression typeEpigastr ic pain Sep-0 9-201 6 Lavell Tayler. [address] [place] [address], [id number], [place]. tel:[phone] Referring Provider: Tayler Monte, [address] [place] [address], [address]. tel:[phone] [employer] [address] [place] [address], [id number] , [place] tel: [phone] [facility] examination Noel- 5-201 5 Donald Leonel. [address] [place] [address], [id number], [place]. tel:[phone] Referring Provider: Tayler Monte, [address] [place] [address], [address]. tel:[phone] OFFICE VISIT ESTAB PT 25 MIN [employer] [address] [place] [address], [id number] , [place] tel: [phone] [facility] abdominal pain (chief complaint) UTI (lower urinary tract infection) 5 Jacquelin Alarcon. [address] [place], [place], [id number], [place]. tel: [phone] Referring Provider: Tayler Monte, [address] [place] [address], [address]. tel:[phone] OFFICE VISIT ESTAB PT 25 MIN [employer] [address] [place] [address], [id number] , [place] tel: [phone] [facility] Kidney stones (chief complaint) Abdominal pain, left lower quadrantCalc ulus of kidneyVomiti ng 5 Lavell Lester. [address] [place] [address], [id number], [place]. tel:[phone] Referring Provider: Tayler Monte, [address] [place] [address], [address]. tel:[phone] OFFICE VISIT ESTAB PT 25 MIN [employer] [address] [place] [address], [id number] , [place] tel: [phone] [facility] Abdominal pain (chief complaint) Abdominal Pain 5 Daryl Manzo. [address] [place], [address], [place]. tel: [phone] Referring Provider: Anais Brito, [address] [place], [address]. tel: [phone] OFFICE/OUTPA TIENT VISIT, EST [employer] [address] [place] [address], [id number] , [place] tel: [phone] [facility] finger pain (chief complaint)LLQ pain (chief complaint) Finger painLeft flank pain 4 Lavell Lester. [address] [place] [address] [place], [id number], [place]. tel:[phone] Referring Provider: Tayler Monte, [address] [place], [address]. tel:[phone] [employer] [address] [place] [address], [id number] , [place] tel: [phone] [facility] 4 Murtaza Darling. [address] [place] [address], [id number], [place]. tel: [phone] [employer] [address] [place] [address], [id number] , [place] tel: [phone] [facility] examination 4 Luiz Barillas. [address] [place] [address], [address], [place]. tel: [phone] [employer] [address] [place] [address], [id number] , US tel: [phone] [facility] Screening examination for pulmonary tuberculosis 4 Lavell Lester. [address] [place] [address], [id number], [place]. tel:[phone] OFFICE VISIT ESTAB PT 25 MIN [facility] [address] [place] [address], [id number] , [place] tel: [phone] [facility] Decreased Appetite (chief complaint) Weight gainAbnormal weight gainAsthmaCo ntraceptionA bnormal weight gainAsthmaUn specified contraceptiv e management 4 Lavell Lester. [address] [place] [address], [id number], [place]. tel:[phone] [employer] [address] [place] [address], [id number] , US tel: [phone] [facility] examination 4 Yfn Hanson. [address] [place] [address], [place]. tel: [phone] OFFICE VISIT ESTAB PT 25 MIN [employer] [address] [place] [address], [id number] , [place] tel:[phone] [facility] vomiting (chief complaint) Abdominal Pain 4 [facility] Dorian. [address] [place], [place], [id number], [place]. tel:[phone] [employer] [address] [place], [place], [id number] , [place] tel:+ [phone] [facility] examination 4 [facility]. [address] [place], [address], . tel:[phone] [employer] [address] [place] [address], [id number] , [place] tel:[phone] [facility] examination 3 [facility]. [address] [place], [address], [place]. tel:[phone] OFFICE VISIT ESTAB PT 25 MIN [employer] [address] [place] [address], [id number] , [place] tel:[phone] [facility] LUQ pain (chief complaint)col d symptoms (chief complaint) Upper Respiratory Infection, Acute 3 Boy Angel. [address] [place], [address], [place]. [phone] OFFICE VISIT ESTAB PT 15 MIN [employer] [address] [place] [address], [id number] , [place] tel:[phone] [facility] stomach pain (chief complaint) H. pylori duodenitisHe licobacter pylori (H. pylori)Duode nitis (without mention of hemorrhage)H elicobacter pylori (h. pylori) infection 3 [facility] Dorian. [address] [place], [place], [id number], [place]. [phone] [employer] [address] [place], [place], [id number] , [place] tel: [facility] AsthmaMigrai neGastritis and duodenitisDe pressionH/O renal calculiH/O tubal ligation 3 Mayra Dionicio. [address] [place], [place], [id number], [place]. tel:[phone] OFFICE VISIT ESTAB PT 25 MIN [employer] [address] [place] [address], [id number] , [place] tel: [phone] [facility] abdominal discomfort (chief complaint) Nephrolithia sisCalculus of kidneyVomiti ng alone 3 [facility]. [address] [place], [place], [id number], [place]. tel:[phone] OFFICE VISIT ESTAB PT 25 MIN [employer] [address] [place] [address], [id number] , [place] tel: [facility] abdominal discomfort (chief complaint) Nephrolithia sisCalculus of kidneyVomiti ng alone 3 [facility]. [address] [place], [place], [id number], [place]. tel:[phone] [employer] [address] [place] [address], [id number] , US tel: [phone] [facility] examination 2 Yfn Hanson. [address] [place], [address], [place]. tel: [phone] [employer] [address] [place] [address], [id number] , [place] tel: [phone] [facility] contraception - desires temporary solution (chief complaint) Surveillance of other contraceptiv e method 2 Luigi Stuart. [address] [place], [address], [place]. tel:[phone] [employer] [address] [place] [address], [id number] , [place] tel: [phone] [facility] Depo Injection (chief complaint) Surveillance of other contraceptiv e methodOther general counseling and advice on contraceptiv e management 2 No Information OFFICE VISIT ESTAB PT 15 MIN [employer] [address] [place] [address], [id number] , [place] tel:[phone] [facility] ER (chief complaint) Anorexia 2 Jenn Sujey. [address] [place], [address], [place]. tel:[phone] OFFICE VISIT ESTAB PT 15 MIN [employer] [address] [place] [address], [id number] , [place] tel:[phone] [facility] anorexia (chief complaint) AnorexiaAnor exiaFamily planning servicesAnor exiaOther general counseling and advice on contraceptiv e management 2 Jenn Sujey. [address] [place] [address], [address], [place]. tel:[phone] OFFICE VISIT ESTAB PT 15 MIN [employer] [address] [place] [address], [id number] , [place] tel: [phone] [facility] release form (chief complaint)kid rick stones (chief complaint) Nephrolithia sisCalculus of kidney 2 Jenn Sujey. [address] [place], [address], [place]. tel:[phone] OFFICE VISIT ESTAB PT 15 MIN [employer] [address] [place] [address], [id number] , [place] tel:[phone] [facility] R flank pain (chief complaint) Renal colic 2 Christopher Vaibhav. [address] [place], [place], [id number], [place]. tel:[phone] OFFICE VISIT ESTAB PT 10 MIN [employer] [address] [place] [address], [id number] , [place] tel:[phone] [facility] Wants to establish PCP (chief complaint)col d symptoms (chief complaint) Respiratory Abnormality, OtherCoughCo ugh 2 Jenn Sujey. [address] [place] [address], [address], [place]. tel: [phone] OFFICE VISIT ESTAB PT 25 MIN [employer] [address] [place] [address], [id number] , [place] tel: [phone] [facility] UTI (chief complaint) Renal colicCalculu s of kidneyCalcul us of kidneyRenal colic 2 Christopher Vaibhav. [address] [place], [place], [id number], [place]. tel: [phone] OFFICE VISIT ESTAB PT 10 MIN [employer] [address] [place] [address], [id number] , [place] tel: [phone] [facility] back pain (chief complaint) Renal colicRenal colic 2 Jenn Sujey. [address] [place] [address], [address], [place]. tel:[phone] OFFICE VISIT ESTAB PT 25 MIN [employer] [address] [place] [address], [id number] , [place] tel: [phone] [facility] back pain (chief complaint) Renal calculus 2 Mayra Dionicio. [address] [place], [place], [id number], [place]. tel:[phone] [employer] [address] [place] [address], [id number] , US tel: [phone] [facility] 1 Yfn Hanson. [address] [place], [address], [place]. tel: [phone] [employer] [address] [place] [address], [id number] , [place] tel: [phone] [facility] Major depressive affective disorder, single episode, unspecified degreeFAMILY DISRUPTION NEC 1 Fady Gabriel. , [place], [place]. OFFICE VISIT ESTAB PT 15 MIN [employer] [address] [place] [address], [id number] , [place] tel:+ [phone] [facility] depression (chief complaint)tyler n (chief complaint)cesar ght loss (chief complaint) Depression Dec-0 1 Christopher Esposito. [address] [place], [place], [id number], [place]. tel:[phone] OFFICE VISIT ESTAB PT 25 MIN [employer] [address] [place] [address], [id number] , [place] tel: [phone] [facility] kidney stones / er (chief complaint)abd ominal discomfort (chief complaint) Kidney stonesHelico bacter pylori ab+Seasonal allergies Sep-2 1 Mayra Greenberg. [address] [place] [address], [id number], [place]. tel: [phone] [employer] [address] [place] [address], [id number] , [place] tel: [phone] [facility] examination Nov-0 1 Luiz Barillas. [address] [place] [address], [address], [place]. tel:[phone] OFFICE VISIT ESTAB PT 25 MIN [employer] [address] [place] [address], [id number] , [place] tel: [phone] [facility] discuss Depo (chief complaint) Loss of weightOther general counseling and advice on contraceptiv e management 3 1 Luigi Stuart. [address] [place] [address], [address], [place]. tel: [phone] OFFICE VISIT ESTAB PT 25 MIN [employer] [address] [place] [address], [id number] , [place] tel: [phone] [facility] vomiting (chief complaint)abd ominal discomfort (chief complaint) Abdominal pain UNSPCF SITEVomiting Nausea & vomitingLoss of weightUrinar y Tract InfectionCon stipation 0 1 Mayra Greenberg. [address] [place] [address], [id number], [place]. tel:[phone] OFFICE VISIT ESTAB PT 25 MIN [employer] [address] [place] [address], [id number] , [place] tel: [facility] Medical cold symptoms (chief complaint)vom iting (chief complaint) Upper Respiratory Infection, AcuteAsthmaA norexia 1 Dalila Brown. [address] [place] [address], [id number], . tel:[phone] [employer] [address] [place] [address], [id number] , tel: [phone] [facility] No Information Nov-0 7- 0 No Information VISIT [employer] [address] [place] [address], [id number] , [place] tel: [facility] vaginal discharge (chief complaint) No Information Oct-2 0 Luigi Stuart. [address] [place] [address], [address], [place]. tel:[phone] [employer], [address] [place] [address], [id number] , tel: [facility] BP monitoring (chief complaint) Nonspecific low blood pressure reading Oct- 0 No Information VISIT [employer] [address] [place] [address], [id number] , tel: [phone] [facility] No Information Oct- 0 Luigi Stuart. [address] [place], [address], [place]. tel:[phone] VISIT [employer], [address] [place] [address], [id number] , [place] tel: [phone] [facility] No Information Oct-1 0-201 0 Luigi Stuart. [address] [place], [address], [place]. tel:[phone] VISIT [employer] [address] [place] [address], [id number] , tel: [phone] [facility] No Information Aug-0 3-201 0 Luigi Stuart. [address] [place], [address], [place]. tel:[phone] VISIT [employer] [address] [place] [address], [id number] , [place] tel: [facility] vaginal discharge (chief complaint) No Information 3 0-201 0 Meyers Narciso. [address] [place] [address], [address], [place]. tel:[phone] VISIT [employer] [address] [place] [address], [id number] , [place] tel: [phone] [facility] No Information 7-201 0 Meyersluz elena Stuart. [address] [place] [address], [address], [place]. tel:[phone] VISIT [employer] [address] [place] [address], [id number] , [place] tel: [facility] No Information 3-201 0 Meyersluz elena Stuart. [address] [place] [address], [address], [place]. tel:[phone] VISIT [employer] [address] [place] [address], [id number] , [place] tel: [phone] [facility] No Information 0 1-201 0 Meyers Narciso. [address] [place] [address], [address], [place]. tel:[phone] VISIT [employer] [address] [place] [address], [id number] , [place] tel: [phone] [facility] back pain (chief complaint) No Information 2-201 0 Belle Christine. [address] [place] [address], [address], [place]. tel:[phone] [employer] [address] [place] [address], [id number] , [place] tel: [phone] [facility] Dental examination 6-201 0 No Information VISIT [employer] [address] [place] [address], [id number] , [place] tel: [phone] [facility] No Information 3-201 0 Belle Christine. [address] [place], [address], [place]. tel:[phone] [employer] [address] [place] [address], [id number] , [place] tel:[phone] [facility] examination May- 2-201 0 No Information VISIT [employer] [address] [place] [address], [id number] , [place] tel: [phone] [facility] vomiting (chief complaint)difatemeh ziness (chief complaint) No Information 1-201 0 Belle Christine. [address] [place], [address], [place]. tel:[phone] [address] [place] [address], [id number] , [place] tel: [phone] [facility] examination May-0 5-201 0 No Information OFFICE VISIT ESTAB PT 15 MIN [employer] [address] [place] [address], [id number] , [place] tel: [phone] [facility] vomiting (chief complaint) Mild hyperemesis gravidarum, antepartum Feb-2 3-201 0 Walser Nanci. [address] [place], [address], [place]. tel:[phone] [employer] [address] [place] [address], [id number] , [place] tel: [phone] [facility] examination Apr-2 2-201 0 No Information OFFICE VISIT ESTAB PT 15 MIN [employer] [address] [place] [address], [id number] , [place] tel: [phone] [facility] vomiting (chief complaint) Mild hyperemesis gravidarum, antepartum Feb-0 8-201 0 Walser Nanci. [address] [place], [address], [place]. tel:[phone] [address] [place] [address], [id number] , [place] tel: [phone] Administrati on - [facility] No Information 0 Services Social. , [place], [address], [place]. [employer] [address] [place] [address], [id number] , tel:[phone] [facility] OB Intake (chief complaint) Other specified counseling 0 Katrin Ramon. [address] [place] [address], [address], [place]. tel:[phone] [employer], [address] [place] [address], [id number] , [place] tel:+ [phone] [facility] OB INTAKE (chief complaint) No Information 0 No Information OFFICE VISIT ESTAB PT 25 MIN [employer] [address] [place] [address], [id number] , [place] tel:[phone] [facility] nausea (chief complaint) No Information 0 Luigi Cerdaele. [address] [place] [address], [address], [place]. tel:[phone] [facility], [address] [place] [address], [id number] , [place] tel:+ [phone] [facility] examination 0 No Information [employer] [address] [place] [address], [id number] , [place] tel:[phone] [facility] Test (chief complaint) No Information 0 No Information [employer], [address] [place] [address], [id number] , [place] tel:[phone] [facility] examination Dec-3 0-200 9 No Information [employer] [address] [place] [address], [id number] , [place] tel:+ [phone] [facility] examination Dec-2 3-200 9 No Information [employer] [address] [place] [address], [id number] , [place] tel:+ [phone] [facility] examination Dec-2 2200 9 No Information OFFICE VISIT ESTAB PT 10 MIN [employer] [address] [place], [place], [id number] , [place] tel:+ [phone] [facility] Vaccine (chief complaint) Other reasons for seeking consultation Dec-0 3200 9 No Information OFFICE VISIT ESTAB PT 15 MIN [employer] [address] [place] [address], [id number] , [place] tel:+ [phone] [facility] seeking preg. (chief complaint) PROCR MGMT CNSL/ADV NEC Sep-2 9-200 9 Belle Christine. [address] [place], [address], [place]. tel:[phone] OFFICE VISIT ESTAB PT 15 MIN [employer] [address] [place] [address], [id number] , [place] tel: [phone] [facility] excessive sweats under arm (chief complaint)abd ominal discomfort (chief complaint) Abdominal pain, unspecified siteAbdomina l pain, unspecified siteASTHMA,U NSPECIFIED TYPE, UNSPECIFIEDP rimary focal hyperhidrosi sAnemia, unspecified Sep-0 4200 9 [facility]. [address] [place] [address], [id number], . tel:[phone] OFFICE VISIT ESTAB PT 25 MIN [employer] [address] [place] [address], [id number] , [place] tel:+ [phone] [facility] acute pelvic pain (chief complaint)vom itigx4 today (chief complaint) Abdominal pain, unspecified site Noel-0 2200 9 No Information OFFICE VISIT ESTAB PT 10 MIN [employer] [address] [place] [address], [id number] , [place] tel:[phone] [facility] LLQ pain (chief complaint) Abdominal pain, left lower quadrant German-1 6200 9 [facility]. [address] [place] [address], [id number], . tel:[phone] OFFICE VISIT ESTAB PT 15 MIN [employer] [address] [place] [address], [id number] , [place] tel:+ [phone] [facility] IUD insertion (chief complaint) Other specified contraceptiv e management Dec-2 0-200 8 Meyers Narciso. [address] [place] [address], [address], [place]. tel:[phone] OFFICE VISIT ESTAB PT 15 MIN [employer] [address] [place] [address], [id number] , [place] tel: [phone] [facility] vomiting (chief complaint)abd ominal discomfort (chief complaint) No Information Sep-0 7-200 8 No Information OFFICE VISIT ESTAB PT 10 MIN [employer] [address] [place] [address], [id number] , [place] tel: [phone] [facility] vomiting (chief complaint)diz ziness (chief complaint) No Information May-3 1200 8 No Information OFFICE VISIT ESTAB PT 15 MIN [employer] [address] [place] [address], [id number] , [place] tel: [phone] [facility] diarrhea, black stools (chief complaint)vom iting (chief complaint) No Information May-1 0-200 8 No Information [employer] [address] [place] [address], [id number] , [place] tel: [phone] [facility] No Information Dec- 0-200 7 Catalina Lion. , [place], [place]. Consulting Provider: Amisha Arnold [place]. [employer] [address] [place] [address], [id number] , [place] tel: [phone] [facility] No Information Dec-0 1-200 7 Murtaza Perezen. [address] [place] [address], [id number], [place]. tel:[phone] [employer] [address] [place] [address], [id number] , [place] tel: [phone] [facility] No Information Sep-2 6-200 7 No Information [employer] [address] [place] [address], [id number] , [place] tel: [phone] [facility] No Information Sep-1 8-200 7 No Information [employer] [address] [place], [place], [id number] , [place] tel: [phone] [facility] No Information 5-200 7 No Information [facility] [address] [place] [address], [id number] , [place] tel: [phone] [facility] No Information Aug-0 7-200 7 No Information ASSESSMENT [facility] [employer] [address] [place] [address], [id number] , [place] tel: [phone] [facility] No Information 9200 7 Kellyser Nanci. [address] [place], [address], [place]. tel: [phone] VISIT PK [employer] [address] [place] [address], [id number] , [place] tel: [phone] [facility] No Information 7200 7 No Information VISIT [facility] [employer] [address] [place] [address], [id number] , [place] tel: [phone] [facility] No Information 7 Kellyser Nanci. [address] [place], [address], [place]. tel:[phone] OFFICE VISIT ESTAB PT 15 MIN [employer] [address] [place] [address], [id number] , [place] tel: [facility] No Information 8200 7 [facility]. [address] [place] [address], [id number], [place]. tel:[phone] OFFICE VISIT ESTAB PT 40 MIN [employer] [address] [place] [address], [id number] , [place] tel: [phone] [facility] No Information 4200 7 Kellyser Nanci. [address] [place], [address], [place]. tel: [phone] ASSESSMENT [facility] [address] [place] [address], [id number] , tel: [phone] [facility] No Information 7 No Information [employer]IAL SERVICE COUNSEL[employer], [address] [place] [address], [id number] , tel:+ [phone] [facility] No Information Services Social. , [place], [place], [facility], . OFFICE VISIT ESTAB PT 15 MIN [employer], [address] [place] [address], [id number] , tel:[phone] [facility] No Information 7 No Information [employer], [address] [place] [address], [id number] , tel:[phone] [facility] Anemia, unspecifiedA STHMA,UNSPEC IFIED TYPE, UNSPECIFIED No Information Family History Family Member Type Diagnosis Age At Onset Mother Problem (finding) renal stone Sister Problem (finding) asthma Father Problem (finding) asthma Sister Problem (finding) asthma Sister Problem (finding) Alive and well Brother Problem (finding) Alive and well Brother Problem (finding) Alive and well Immunizations Vaccine Date Status Comments Flu Vaccine ([id number]) administered Sour ce: New Immunization Record Flu (age 3 and above) administered Note: VIS given, S/E and contraindications reviewed, denies allergies ; Source: New Immunization Record hep B (ped/adol, 3 dose) administered Nicole rce: New Immunization Record Payers Payer name Insurance type Covered alliance party ID Authoriza tion(s) [facility] [employer] [place] [id number] Medicaid [id number] [facility] [employer] CI [id number] [facility] [employer] CI [id number] Social History Type Description Quantity Date Captured Comments Alcohol Use Details Unknown Caffeine Use Details Unknown Tobacco Use Status No Information Smoking Status No Information Sex Female Sexual Orientation Straight or heterosexual Gender Identity Female Chief Complaint And Reason For Visit No Information Reason For Referral Reason For Referral No Information Plan Of Treatment Date Type Action Status Goal Pap/HPV testing. Due on due Goal [...] Depression Scree nabila. Due on due Goal Depression Scree nabila. [...] nt education, guidance, and counseling completed Goal PHQ9. Due on due Goal Pap/HPV [...] Td vaccine. Due on 18 due Goal Pap/HPV testing. Due on due Goal Depression scree nabila. Due on due Goal Tdap. Due on due Goal PHQ9. Due on due Goal Td vaccine. Due on 18 due Goal Suicide risk ass essment. Due on due Goal Suicide risk ass [...] due Goal Tdap. Due on due Goal Tdap. Due on [...] due Goal PAP. Due on due Goal PAP. Due on due Goal PHQ9. Due on due Goal Influenza vaccin e. Due on due Goal Suicide risk ass essment. Due on due Goal Td vaccine. Due on due Goal Tdap. Due on due Goal Tdap. Due on [...] due Goal PAP. Due on due Goal Tobacco cessation counseling [...] [facility] To: [facility] [address] [place] [address], [id number] [phone] Ordered: Referrals: Obstetrics and Gynecology. [facility] [...] Order: Lab Order TSH Base line KH (719), Ordered on: Ordered Future Order: Lab Order Vitamin D 25 Hydroxy Level ([id number]), Ordered on: Ordered Future Order: Lab Order Urinalys is That Reflexes To Microscopic (1162), Ordered on: Ordered Future Order: Lab Order Magnesiu m Level (369), Ordered on: Ordered Future Order: Lab Order STOOL CU LTURE ([id number]), Ordered on: Ordered Future Order: Radiol ogy Order MRI: Thoracic Spine (MRITSPINE), Sent on: Sent Future Order: Radiol ogy Order US (Ultrasound): (US), Appointment on: , Sent on: Sent Future Order: Lab Order CREATINI NE/CR ([id number]), Ordered on: Ordered Future Order: Lab Order Urinalys is ([id number]), Ordered on: Ordered Future Order: Lab Order Helicoba ct H Pylori Breath ([id number]), Ordered on: Ordered Future Order: Radiol ogy Order US ABD COMP, [id number] (US ABD COM), Ordered on: Ordered Future Order: Radiol ogy Order RAD EXAM FINGER(S) 2V, 38735 (XR FINGER), Ordered on: Ordered Future Order: Radiol ogy Order US ABD COMP, 83937 (US ABD DrAvailable), Appointment on: , Sent on: Sent Future Order: Lab Order HELICOBA CTER FECAL ([id number]), Ordered on: Ordered Future Order: Lab Order STOOL CU LTURE ([id number]), Ordered on: Ordered Future Order: Lab Order HELICOBA CTER PYLORI - IGG (4091), Ordered on: Ordered Future Order: Lab Order TISSUE T RANSGLUTINASE IGG ([id number]), Ordered on: Ordered Future Order: Lab Order TISS TRA NSGLUTAMINASE IGA (1334), Ordered on: Ordered Future Order: Lab Order CBC (W D IFF AND PLATELET) (1979), Sent on: Sent Future Order: Lab Order SCREEN F OR BETA HEMOLYTIC STREP B (5022), Appointment on: , Sent on: Sent Future Order: Lab Order Urine Di pstick ([id number]), Appointment on: Ordered Future Order: Lab Order FOBT Yesi gnostic ([id number]), Appointment on: Ordered Future Order: Lab Order AFP Quad ([id number]), Appointment on: , Sent on: Sent Future Order: Lab Order Urine Di pstick ([id number]), Appointment on: Ordered Future Order: Lab Order Urine Pr egnancy Test ([id number]), Appointment on: Ordered Future Order: Lab Order Urine Pr egnancy Test ([id number]), Appointment on: Ordered Future Order: Lab Order Urine Pr egnancy Test ([id number]), Appointment on: Ordered Future Order: Lab Order [...] Order: Lab Order Urine Pr egnancy Test ([id number]), Appointment on: Ordered Future Order: Lab Order Urine Di pstick ([id number]), Appointment on: Ordered Future Order: Lab Order Urine Pr egnancy Test ([id number]), Appointment on: Ordered Future Order: Lab Order Urine Pr egnancy Test ([id number]), Appointment on: Ordered History Of Present Illness [...] weakness Patient was s een at [facility] for left flank pain and was found to have right leg weakness while in the ER. Patient reports pain rating 7/10, describing the pain as sharp in nature. Additionally, the patient reports experiencing numbness and tingling sensation in her feet. She expresses difficulty with walking and is requesting a referral for physical therapy.DIRECTOR GROUP SALES note: pt was seen Neurology in the [...] . add Pt has upcoming appt with belt loop machine operator Dr. Phong Griffith, out of [facility] on 01/09 reports office needs a referral. Pt also wanted to share that she has [employer] insurance. . The telephone visit was conducted [...] pain - upperLMP - 06/05/2019I called the [facility] to sign out patient to triage nurseTelehealth [...] etoh no sh lives w and kids. 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 trying to conceive Had a tubal r eversal 3 months ago in [place]. Here to see why she has not [...] Pain Had btl 2d ag o in [place], crying moaning, shakin in pain. back pain Onset: 1 day ago . Severity level is severe. The problem is worsening. Location of pain is lower back.There is no radiation of pain. Context: no injury. Symptoms are aggravated by ascending stairs, daily activities, descending stairs, lifting, lying/rest, rolling over in bed and walking. back pain (comments) [employer]OR [employer] SAL[employer] note: Pt presents with back pain since Saturday night. The patient does not remember a mechanism of injury. The pain began mild but now is 10/10, she has not taken anything at home from it. Tried only heat for pain relief and it did not help. Follow Up of Reyna mo (comments) [facility] are no prescribers there for med adjustments. reports minimal effect from buspar 5mg BID. continues with episodes of palpitations, skipped" heartbeats with her anxiety.she is also having continued R flank pain d/t recurrent renal stones. has ? hx medullary sponge kidney. has not seen urology or nephrology in years. used to see Dr. Gardiner on [facility]. Follow Up of Depression Follow Up of Reyna mo (comments) needs note for continued FMLA from work. continues psych meds but has been unable to make appts with d/t no rides from [employer]. 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 Follow Up of Depression This is a follow up visit. There is improvement of initial symptoms. The patient does not present with depressed mood or diminished interest or pleasure. Follow Up of gastritis ER Patient was seen in the ER at [facility] about 1 week ago .(records requested) And also was seen yesterday in the ER at [facility] ( records requested) for kidney stones Depression This is an initi al visit. [...] her mother-this causes her pain. abdominal pain Onset: 1 Year. T he severity of the problem is moderate. The problem has worsened. The symptoms are constant. The location is epigastric. Aggravating factors include eating. Associated symptoms include change in appetite. 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 Related to Major depressive disorder, single episode, unspecified Please keep your harvinder t w/ BHContinue medicationFollow-up 2 weeksGo to ER or call 911 if any SI/HI Related to Major depressive disorder, recurrent, unspecified Increase sertraline to 100mgPt will see Brenda today at [address] [place] [address] seeing family counselor (located on [facility])Able to contract for safety. No SI/HIFollow-up [...] kidney specialist Related to Left flank pain escitalopram continu etrazodone at night as neededmake appt with Nadeen Frank Related to Major depressive disorder, recurrent, unspecified omeprazole Related to Epiga stric pain continue with escita lopram daily 20 mgtake [...] to Epig astric pain call therapist on [facility] to make urgent appointmentescitalopram 1 daily Related [...] medication as prescribe d Increase activity level Continue current medication Reviewed medications Patient understood a nd made informed decision Increase rest Reviewed medications Add structured routine Follow exercise program Call office if symptoms worsen Go to ER if risk of harm to self or others Activity as tolerated Reviewed medications Continue current medication Return to office in 48-72hours R elated to Activity as tolerated Reviewed medications Take new medication as prescribe d Assessments Type Assessment Date No Information Patient Care Teams Name Effective Dates (start - stop) Status Members No Information
--- OUTSIDE RECORDS SUMMARY | 2024-11-11 08:00 | XMS_ITS | Encounter Summary ---
Author Organization [facility] Address [address] [facility] [address] [place] [phone] Phone Care Team Providers Care [employer] Supervisor Name Role Phone Pcp, Not Required Primary Care Provider Unavaila ble Encounter Details Date Type Department Care Team ([facility] st Contact Info) Description 11/11/2024 8:00 AM EDT Pre-Admission Testing Pre Procedure Evaluation [address] [place] [address] Jalen Sweeney, DO [facility], [facility] [address] [email or web address] Social History Tobacco Use Types Packs/Day Years Used Date Smoking Tobacco: Never Smokeless Tobacco: Never Tobacco Cessation:Counseling Given: Not Answered Alcohol Use Standard Drinks/Week Comments Yes 0 (1 standard drink = 0.6 oz pure alcohol) glass of wine once every 6 months Education Answer Date Recorded Are you interested in more education? Not on daysi e 07/06/2022 Are you concerned about learning? Not on file 07/06/2022 No 07/06/2022 No 07/06/2022 Food Answer Date Recorded Within the past 6 months we worried whether our food would run out before we got money to buy more. Never True 10/08/2024 Within the past 6 months the food we bought just didn't last and we didn't have enough money to get more. Never True Residential Stability Answer Date Recor ded What is your housing situation today? I have dana sing 10/08/2024 How many times have you move d in the past 12 months? Zero (I did not move) 10/08/2024 Paying for Meds Answer Date Recorded Do you have trouble paying for medicines? No 10/08/2024 Paying Utility Bills Answer Date Record ed Do you have trouble paying your heating or elect ricity bill? No 10/08/2024 Transportation Answer Date Recorded Has the lack of transportati on kept you from medical appointments or from getting medications? No 10/08/2024 Digital Access Answer Date Recorded No 10/08/2024 Yes 10/08/2024 Do you have reliable internet access at home? Ye s 10/08/2024 Do you have a device (e.g., phone, tablet, computer) with a working camera? Yes 10/08/2024 Intimate Partner Violence Answer Date R ecorded Are you denied basic needs s uch as food, clothing, or medical care? No 10/08/2024 In the past 12 months have y ou been in a relationship with a person who hurts, threatens, or tries to control you? No 10/08/2024 Are you denied basic needs s uch as food, clothing, or medical care? No 10/08/2024 In the past 12 months have y ou been in a relationship with a person who hurts, threatens, or tries to control you? No 10/08/2024 Comments No Sex and Gender Information Value Date Recorded Sex Assigned at Female 09/14/2023 7:34 PM EDT Legal Sex Female 7:09 PM EDT Gender Identity Female 09/14/2023 7:34 PM EDT Sexual Orientation Straight 09/14/2023 7: 34 PM EDT documented as of this encounter Last Filed Vital Signs Vital Sign Reading Time Taken Comments Blood Pressure - - Pulse - - Temperature - - Respiratory Rate - - Oxygen Saturation - - Inhaled Oxygen Concentration - - Weight 73.9 kg (163 lb) 10/28/2024 10:49 AM EDT Height 167.6 cm (5' 6 ) 10/28/2024 10:49 AM EDT Body Mass Index 26.31 10/28/2024 10:49 AM EDT documented in this encounter Progress Notes * Reggie Roe RN - 11/11/2024 8:00 AM EDT You may take some of your medications the day of surgery, as directed by your surgeon/specialist with a small sip of water. Hold vitamins, supplements, and nsaids a week prior to surgery, unless otherwise indicated by your PCP, surgeon, or second butler. Do Not eat or drink anything after midnight. No chewing gum, hard candy, and lozenges. Do not use mouthwash with oral care. Please do not wear jewelry of any kind (including wedding rings), body piercings, nail italian, makeup, contact lenses, lotions, powders, or deodorant. If the surgeon instructed you to use a pre-op antiseptic wipe or wash, follow your surgeon's instructions Do not shave the area where the surgeon will be making incisions for 2 days before your surgery. Make sure you have a friend or family member come with you who will be able to stay with you and drive you home. You will not be allowed to drive, walk or take a bus, taxi, or Uber home after your procedure (by yourself, you must be accompanied) Please review your instructions from your surgeon and make sure you have all appropriate lab work drawn prior to surgery. If you think you have a cold, flu, any kind of infection or skin problem, please call your surgeon's office directly Pt demonstrated a knowledge of information with a successful teach back. This preprocedure call occurred on October 28, 2024 documented in this encounter Plan of Treatment Upcoming Encounters Date Type Department Care Team (Late st Contact Info) Description 11/26/2024 8:45 AM EDT Office Visit [facility] [address] [place] [address] Nikita Mireles PA-C [address] [place] [address] [place] [address] [email or web address] Kuldeep Dominguez, PT [address] [place] [address] 12/02/2024 9:40 AM EDT Office Visit [facility] [address] [place] [address] Nikita Mireles PA-C [address] [place] [address] [place] [address] 12/02/2024 11:00 AM EDT Office Visit [facility] [address] [place] [address] Nikita Mireles PA-C [address] [place] [address] [place] [address] Kuldeep Dominguez, PT [address] [place] [address] 12/07/2024 11:00 AM EDT Office Visit [facility] [address] [place] [address] Nikita Mireles PA-C [address] [place] [address] [place] [address] Kuldeep Dominguez, PT [address] [place] [address] 12/09/2024 10:15 AM EDT Office Visit [facility] [address] [place] [address] Nikita Mireles PA-C [address] [place] [address] [place] [address] Kuldeep Dominguez, PT [address] [place] [address] 12/16/2024 10:00 AM EDT Office Visit [facility] [address] [place] [address] Nikita Mireles PA-C [address] [place] [address] [place] [address] Karyna Aguirre, PT [address] [place] [address] 12/18/2024 11:30 AM EDT Office Visit [facility] [address] [place] [address] Nikita Mireles PA-C [address] [place] [address] [place] [address] Karyna Aguirre, PT [address] [place] [address] 12/23/2024 10:00 AM EDT Office Visit [address] [place] [address] Nikita Mireles PA-C [address] [place] [address] [place] [address] Karyna Aguirre, PT [address] [place] [address] 12/28/2024 10:00 AM EDT Office Visit [facility] [address] [place] [address] Nikita Mireles PA-C [address] [place] [address] [place] [address] Karyna Aguirre, PT [address] [place] [address] 12/30/2024 10:00 AM EDT Office Visit [address] [place] [address] Nikita Mireles PA-C [address] [place] [address] [place] [address] Karyna Aguirre, PT [address] [place] [address] 12/30/2024 11:15 AM EDT Office Visit [facility] [address] [place] [address] Jalen Sweeney DO [address] [place] [address] Orthopedics & Sports Medicine, [place] [address] 01/04/2025 10:00 AM EDT Office Visit [address] [place] [address] Nikita Mireles PA-C [address] [place] [address] [place] [address] Karyna Aguirre, PT [address] [place] [address] 01/06/2025 10:00 AM EDT Office Visit [address] [place] [address] Nikita Mireles PA-C [address] [place] [address] [place] [address] Karyna Aguirre, PT [address] [place] [address] 01/11/2025 10:00 AM EST Office Visit [address] [place] [address] Nikita Mireles PA-C [address] [place] [address] [place] [address] Karyna Aguirre, PT [address] [place] [address] documented as of this encounter Visit Diagnoses Not on filedocumented in this encounter Care Teams [employer] Fabric[employer] Supervisor Relationship Specialty Start Date End Date Pcp, Not Required [address] [place] [id number] PCP - General 11/09/15 documented as of this encounter Additional Source Comments The information contained in this document represents components of the legal health record. It is not the complete legal health record.[facility]
--- OUTSIDE RECORDS SUMMARY | 2024-11-12 10:01 | XMS_ITS | Encounter Summary ---
Author Organization [facility] Address [address] [place] [id number] Phone Care Team Providers Care Computer Technical Support Specialist Name Role Phone Pcp, Not Required Primary Care Provider Unavaila ble Reason for Visit * Auth/Cert (Routine) Specialty Diagnoses / Procedures Referred By Contac t Referred To Contact Diagnoses Labral tear of long head of right biceps tendon, sequela Traumatic incomplete tear of right rotator cuff, sequela Labral tear of long head of right biceps tendon, sequela [S46.111S] Traumatic incomplete tear of right rotator cuff, sequela [S46.011S] Procedures CA SHLDR ARTHROSCOP,SURG,W/ROTAT CUFF REPR ARTHROSCOPIC REPAIR ROTATOR CUFF SHOULDER Jalen Sweeney DO 4 [facility] [place] [address] Phone: tel: fax: [email or web address] Referral ID Status Reason Start Date Expiration Date Visits Re quested Visits Authorized [id number] 05/21/2024 1 1 Encounter Details Date Type Department Care Team (Latest Contact Info) Description 11/12/2024 10:01 AM EDT - 11/12/2024 4:15 PM EDT Hospital Encounter OR Admitting Dept - Virtual Department [address] [place] [id number] Jalen Sweeney DO 4 [facility] [place] [address] Discharge Disposition: Home or Self Care Social History Tobacco Use Types Packs/Day Years Used Date Smoking Tobacco: Never Smokeless Tobacco: Never Alcohol Use Standard Drinks/Week Comments Yes 0 [...] Sign Reading Time Taken Comments Blood Pressure 136/68 11/12/2024 4:00 PM EDT Pulse 82 11/12/2024 3:15 PM EDT Temperature 36.5 C (97.7 F) 11/12/2024 2:04 PM EDT Respiratory Rate 13 11/12/2024 3:15 PM EDT Oxygen Saturation 99% 11/12/2024 4:00 PM EDT Inhaled Oxygen Concentration - - Weight - - Height - - Body Mass Index - - documented in this encounter Functional Status * Calculated C-SSRS Risk Score (Lifetime/Recent) Answer Date of Assessment Author No Risk Indicated 10/08/2024 12:28 PM EDT Ana Gonzalez RN * [place] Suicide Severity Rating Scale (Screener/Recent Self-Report) Question Answer Date of Assessment Author 1. Wish to be (Past 1 Month) No 025 12:28 PM EDT Ana Gonzalez RN 2. Non-Specific Active Suici kori Thoughts (Past 1 Month) No 10/08/2024 12:28 PM EDT Ana Gonzalez RN 6. Suicidal Behavior (Lifetime) No 12:28 PM EDT Ana Gonzalez RN documented as of this encounter Discharge Instructions * Discharge Instructions* Maris Liu RN - 11/12/2024 7:31 AM EDT Images from the original note were not included. Dr. Sweeney's Postoperative Instructions Shoulder Surgery Medication Pain control Ice is the best pain reliever after surgery. Ice bags and gel packs are adequate but there are cooling machines (Cryo-cuff and Game Ready) that are available to purchase or rent. To reduce swelling and pain, put ice or a cold pack on your shoulder for 20 minutes at a time. It should follow the pattern of 20 minutes on and 20 minutes off to limit the risk of freezing the skin and soft tissue. Put a thin cloth between the ice and your skin. A prescription for narcotic pain medication will be given to you with your discharge instructions. Take them as directed. Acetaminophen (Tylenol) can also be used as an effective pain reliever. Avoid NSAIDs (ibuprofen, Advil, Motrin, Aleve, naproxen, diclofenac, Indocin) for the first 6 weeksafter surgery as they can slow down healing. Narcotics can cause constipation. It is advisable to take a stool softener, such as Colace, increase fiber intake and drink plenty of fluids while on narcotic pain medication. If with these measures you do not have a bowel movement within three days please call your primary care physician. If all else fails, this is the recipe for The Bomb! (THE BOMB -2 TBSP MILK OF MAGNESIA,4 OZ PRUNE JUICE WARMED) If you need a refill of your pain medication, please call the nursing triage number listed below torequest it from your surgeon. Please call 2-3 days before you run out of pain medication. Narcotic pain medication scripts can be sent directly to your pharmacy unless you request to [employer] the paper script from our office to bring to your pharmacy. Your surgeon will prescribe narcotic pain medication for approximately 7-10 days. Each refill during this time will gradually decrease in dosage. In this way you may transition to over the counter pain relievers. Blood clot prevention A daily aspirin will help to prevent blood clots in the leg. Take one aspirin every morning for twoweeks after surgery, if you are not allergic or prohibited by your regular doctor. You should wear the anti-embolic stocking for 2 days after surgery. Wound Care Start ???Pendulum?? exercises the day after surgery unless otherwise instructed. Wear your sling at all times, even while sleeping. You may remove the sling to do your exercises and to shower. You may remove your dressings and shower 48 hours after surgery. Replace band- aids on all wounds for the following 2 days. Do not submerge (bath tub, pool, hot tub, etc???) your surgical wounds until after the stitches have been removed. Your stitches will be removed when you come in for your follow up appointment in 10-14 days. Follow up appointment You should call the office shortly after surgery to confirm your follow up appointment for about 10-14 days after surgery. At this appointment, we will review the surgery and discuss rehabilitation and activity restrictions. We will also discuss your therapeutic goals and course during this follow up appointment. Problems If you have any urgent concerns or questions, you should call the office and I, or the physician oncall will get back to you as soon as possible. Shoulder Surgery: What to Expect at Home Your Recovery You will feel tired for several days. Your shoulder will be swollen, and you may notice that your skin is a different color near the cut (incision). Your hand and arm may also be swollen. This is normal and will start to get better in a few days. It will be several months before you have complete use of your shoulder and arm. Once you have healed from surgery, you will need to build your strengthand the motion of your joint with rehabilitation (rehab) exercises. In time, your shoulder will likely be stronger, less painful, and more flexible than it was before the surgery. This care sheet gives you a general idea about how long it will take for you to recover. But each person recovers at a d ifferent pace. Follow the steps below to get better as quickly as possible. How can you care for yourself at home? Activity Rest when you feel tired. Getting enough sleep will help you recover. Do not lie flat or sleep on your side. Raise your upper body on two or three pillows, or sleep in a reclining chair. Try to walk each day. Start by walking a little more than you did the day before. Bit by bit, increase the amount you walk. Walking boosts blood flow and helps prevent pneumonia and constipation. Your arm will be in a sling or other device to prevent it from moving for 4 to 8 weeks. Always use the sling when you are walking or standing. If you are sitting or lying down, you can loosen the sling, but do not remove it. This lets your elbow straighten without moving the shoulder. You can also support your arm on a pillow. Remove the sling only to do prescribed exercises or to shower. You will not have complete use of your affected arm for 3 to 4 months after surgery. You can use your affected arm for writing, eating, or drinking, but move it only at the elbow or wrist. Do not use it for anything else except prescribed exercises until the sling has been removed. When the sling has been removed, you can do activities that do not involve lifting, pushing, pulling, or carrying. You may not be able to do overhead lifting for 6 to 12 months. If you have a desk job, you will probably be able to return to work or your normal routine in 1 to 2 weeks. If you have a more active job, you may be away from work for 3 to 4 months or longer. If you work at a job that involves heavy manual labor, lifting your arms above your head, or the use of heavy tools, you may have to think about making changes to your job. If the rotator cuff repair was done arthroscopically, you can take a shower 48 to 72 hours after surgery. Remove the sling, and leave your arm by your side. To wash under your armpit, lean over and let the arm fall away from your body. Do not raise your arm. You may want to use a shower stool for aday or two. If you had open surgery, do not shower until you see your doctor and he or she okays it. You can wash the incisions with regular soap and water. Ask your doctor when you can drive again. This may take about 6 weeks or until you are no longer wearing the sling. Diet You can eat your normal diet. If your stomach is upset, try bland, low-fat foods like plain rice, broiled chicken, toast, and yogurt. Drink plenty of fluids. You may notice that your bowel movements are not regular right after your surgery. This is common. Try to avoid constipation and straining with bowel movements. You may want to take a fiber supplement every day. If you have not had a bowel movement after a couple of days, ask your doctor about taking a mild laxative. Exercise Shoulder rehabilitation is a series of exercises you do after your surgery. This helps you get backyour shoulder's range of motion and strength. You will work with your doctor and physical therapistto plan this exercise program. Rehab may not start until 6 weeks after the surgery. To get the bestresults, you need to do the exercises correctly and as often and for as long as your doctor tells yo u. Pendulum swing If you have pain in your back, do not do this exercise. Hold on to a table or the back of a chair with your good arm. Then bend forward a little and let your sore arm hang straight down. This exercise does not use the arm muscles. Rather, use your legs and your hips to create movement that makes your arm swing freely. Use the movement from your hips and legs to guide the slightly swinging arm back and forth like a pendulum (or elephant trunk). Then guide it in circles that start small (about the size of a dinner plate). Make the circles a bit larger each day, as your pain allows. Do this exercise for 1-2 minutes, 5 to 6 times each day. As you have less pain, try bending over a little farther to do this exercise. This will increase the amount of movement at your shoulder. Helpful information [id number] [address] [facility] [address] [place] [address] [facility] PATIENT DISCHARGE INSTRUCTIONS FOR REGIONAL ANESTHESIA [facility] 60-2 05/20 [employer] Operations: May Camarillo MD TIER LIFT TRUCK OPERATOR: Dennise Rodriguez CRNA gave you a form of regional anesthesia as part of your care.For your comfort and safety, please read this page. What is regional anesthesia? Regional anesthesia or ???nerve block?? is putting a part of your body to sleep, or making that body part numb for surgery with an injection of local anesthetic. Local anesthetic is similar to ???Novacaine?? which is often used by dentists; it makes the ???blocked?? body part both numb and weak, or impossible to move until the effect wears off. Routinely patients are sent home with regional anesthesia still in effect. For those patients who have undergone shoulder surgery, it is possible to experience a droopy eyelid or hoarse voice. You may also notice a change in the sensation of your breathing. This is a normal consequence of the nerve block and will go away as the block wears off. How long does the block last? The duration of the block is highly variable and ranges typically from 12-24 hours. For your comfort: Have your prescription for pain medicine prescribed by your surgeon filled by a family member or friend before you leave the hospital or on your way home. As your nerve block wears off, you will begin to regain sensation, and therefore pain from the surgery. It is important to immediately begin taking your pain medication at the first hint of sensation or pain. You may have a ???pins and needles?? sensation as the nerve block wears off. This is the time to start taking your pain medication. Remember: pain is like a fire???putting out a small fire is much easier than extinguishing a large fire. Stay ahead of the pain by taking your pain medication when you have even a little pain for the first 1-2 days. For your safety: Take care to protect the part of your body that is numb. Be careful with hot objects and liquids. Avoid banging the numb area, particularly when walking through doorways. Do not sleep on the numb part of your body. Use a sling / crutches until you regain full sensation and strength of your limb. Your nerve block should not last longer than 24 hours. You should not have any severe or persistentpain or redness at the injection site. In the event you experience any of these occurrences, pleasecontact your surgeon. If you have an emergency, go to the Emergency Room. We wish you a speedy and smooth recovery. [facility] Anesthesia Department documented in this encounter Medications at Time of Discharge albuterol 90 mcg/actuation inhaler Inhale 2 puffs into the lungs every 6 (six) hours as needed for wheezing. 18 g 06/18/2024 inhaler spacing device (AEROCHAMBER,BREAT HERITE) Spcr Inhale 1 each into the lungs every 4 (four) hours as needed (Use with your albuterol inhaler). 1 each 06/18/2024 mirtazapine (REMERON) 15 MG tablet Take 15 mg by mouth nightly at bedtime. oxyCODONE 5 MG immediate release tablet Take 1-2 tablets (5-10 mg total) by mouth every 4 (four) hours as needed for pain (specific location in comments) (postop shoulder pain). Partial fill ok 30 tablet 11/12/2024 therapeutic multivitamin tablet Take 1 tablet by mouth daily. documented as of this encounter H&P Notes * Jalen Sweeney DO - 11/12/2024 11:46 AM EDT H&P reviewed. The patient was examined and there are no changes to the H&P. Source Note - Nikita Mireles PA-C - 10/21/2024 8:40 AM EDT [facility] Date of Visit: 10/21/2024 Reason for Appointment: Preoperative history and physical examination; right shoulder arthroscopy with Dr. Sweeney scheduled on . HPI: Paul Estrella is a 39 y.o. female who presents today for preoperative evaluation. The patient feels quite ready to proceed with surgery and has no particular concerns today. Medical history is significant for no chronic medical history. Patient does not use any daily medications. No history ofanesthesia complication. No history of bleeding dyscrasias or DVT Social History: Social History Socioeconomic History Marital status: Single Spouse name: Not on file Number of children: Not on file Years of education: Not on file Highest education level: Not on file Occupational History Not on file Tobacco Use Smoking status: Never Smokeless tobacco: Not on file Substance and Sexual Activity Alcohol use: No Drug use: No Sexual activity: Yes Other Topics Concern Not on file Social History Narrative Not on file Family History: No family history on file. Medical History: Active Ambulatory Problems Diagnosis Date Noted No Active Ambulatory Problems Resolved Ambulatory Problems Diagnosis Date Noted No Resolved Ambulatory Problems No Additional Past Medical History Medications: Current Outpatient Medications: albuterol 90 mcg/actuation inhaler, Inhale 2 puffs into the lungs every 6 (six) hours as needed forwheezing., Disp: 18 g, Rfl: 0, Last Dispense: Unknown (outside pharmacy) ibuprofen (ADVIL,MOTRIN) 600 MG tablet, Take 1 tablet (600 mg total) by mouth every 6 (six) hours for 5 days., Disp: 20 tablet, Rfl: 0, Last Dispense: Unknown (outside pharmacy) inhaler spacing device (AEROCHAMBER,BREATHERITE) Spcr, Inhale 1 each into the lungs every 4 (four) hours as needed (Use with your albuterol inhaler)., Disp: 1 each, Rfl: 0, Last Dispense: Unknown (outside pharmacy) mirtazapine (REMERON) 15 MG tablet, Take 15 mg by mouth nightly at bedtime. (Patient not taking: Reported on 06/18/2024), Disp: , Rfl: , Last Dispense: Unknown (patient-reported) tamsulosin (FLOMAX) 0.4 mg Cap, Take 1 capsule (0.4 mg total) by mouth daily for 10 days., Disp: 10capsule, Rfl: 0, Last Dispense: Unknown (outside pharmacy) therapeutic multivitamin tablet, Take 1 tablet by mouth daily. (Patient not taking: Reported on 06/18/2024), Disp: , Rfl: , Last Dispense: Unknown (patient-reported) Allergies: Allergies Allergen Reactions Ceftriaxone Hives Vitals: Wt Readings from Last 1 Encounters: 10/08/24 73.9 kg (163 lb) Temp Readings from Last 1 Encounters: 10/08/24 37 ??C (98.6 ??F) BP Readings from Last 1 Encounters: 10/08/24 103/74 Pulse Readings from Last 1 Encounters: 10/08/24 99 Exam: In general, the patient is in no acute distress. Affect is appropriate. Alert and oriented ??3. Breathing is nonlabored. Skin: Skin color, texture, turgor normal. No rashes or lesions. Oropharynx: Lips, mucosa, teeth and gums are normal. Neck: no jugulovenous distention Lungs: Lungs clear to auscultation. Cardiac: RRR. Normal S1 and S2; no rubs, murmurs, or gallops Extremities: Right shoulder examination with positive impingement testing and weakness of the supraspinatus Imaging: MRI images were reviewed and demonstrate substantial thinning and partial-thickness tearing within the critical zone of the supraspinatus but no full-thickness tear. Substantial tearing of the superior aspect of the subscapularis but again no full-thickness tearing. Substantial signal within the long head of the biceps of the labrum Asssessment: Preoperative evaluation for a planned right shoulder arthroscopy on 11-12. Proceed with surgery as planned Plan: Today we had a thorough discussion of the risks and benefits of the scheduled procedure. We discussed in detail the risks of infection, nerve or tendon or vascular injury, bleeding, pain and stiffness, incomplete resolution of symptoms, and significant scar formation. We also discussed the extensive rehabilitation process. All questions were answered to the patient's content today. Paul Estrella verbalizes understanding and agreement with plan. Consent form signed. -Outpatient surgery planned - Physical therapy to start 2 weeks after surgery-referral provided today - Oxycodone for postoperative pain Nikita Mireles PA-C documented in this encounter Procedure Notes * Jalen Sweeney DO - 11/12/2024 12:35 PM EDT Full Operative Note Patient Name: Paul Estrella Date of Surgery: 11/12/24 Pre-Op Diagnosis Codes: * Labral tear of long head of right biceps tendon, sequela [S46.111S] * Traumatic incomplete tear of right rotator cuff, sequela [S46.011S] Post-Op Diagnosis Codes: * Labral tear of long head of right biceps tendon, sequela [S46.111S] * Traumatic incomplete tear of right rotator cuff, sequela [S46.011S] Procedure(s): ARTHROSCOPIC REPAIR ROTATOR CUFF SHOULDER: 06318 (CPT??) ARTHROSCOPIC TENODESIS BICEPS TENDON: 76548 (CPT??) DECOMPRESSION SUBACROMIAL SHOULDER: 51984 (CPT??) ARTHROSCOPIC DEBRIDEMENT SHOULDER: 15541 (CPT??) Surgeon(s): Jalen Sweeney DO Bombardier, Mark, PA-C [employer]: May Camarillo MD TIER LIFT TRUCK OPERATOR: Dennise Rodriguez CRNA Anesthesia Type: General ASA Code: II Estimated Blood Loss: Minimal Specimen: None Complications: None SUMMARY OF OPERATION: Small rotator cuff tear with SLAP tear and labral tear. Standard PT protocol for rotator cuff repair. HISTORY OF PRESENT ILLNESS: The patient presented today with long-standing right shoulder pain thathas failed nonsurgical management for right shoulder arthroscopy. After informed consent was obtained, the right upper extremity was marked by me with the assistance of the patient. The patient then underwent an ultrasound-guided interscalene nerve block and was taken back to operating room and placed on the OR table in the supine position where general anesthesia was induced. The patient was then placed in the right lateral decubitus position with all bony prominences well-padded and the rightupper extremity was prepped and draped in the usual fashion for right shoulder arthroscopy. A surgical timeout was performed and the region of the posterior, anterior, and lateral portals were pre-anesthetized with 1% lidocaine with epinephrine. Glenohumeral Arthroscopy: The posterior portal was established sharply and the arthroscope was placed through the posterior portal into the glenohumeral space. Using an outside-in technique, an anterior working portal was established. A diagnostic arthroscopy revealed substantial tearing of the posterior, superior, and anterior labrum with some intrasubstance tearing of the long head of the biceps. A series of suture and suture anchors were evident in the superior and posterior glenoid from a previous labral repair. Subscapularis, infraspinatus, and teres minor were intact. There was a near full-thickness tear of the anterior aspect of the critical zone of the supraspinatus noted that when probed, reveals a full-thic kness tear. A Q fix anchor was then placed into the bicipital groove. The suture was then incorporated into the long head of the biceps and tensioned reducing and tenodesed in the biceps in situ. Theintra-articular portion of the long head of the biceps was then cut using the radiofrequency ablation wand. Graspers were then utilized to remove any loose suture from the superior glenoid. Using themechanized shaver and wand, the anterior, superior, and posterior labrum was debrided of all non-viable tissue. The remaining suture was then thoroughly debrided along with the stump of the long headof the biceps and the articular surface of the supraspinatus using the mechanized shaver and radiofrequency ablation wand. The shoulder joint was then lavaged with a copious amount fluid, drained of all free-floating pieces and excess fluid and all instrumentation was removed. Subacromial Arthroscopy: The arthroscope and then placed through the posterior portal into the subacromial space. A lateral portal was established. An extensive amount of chronic bursitis was encountered. Using a combinationof the mechanized shaver, radiofrequency ablation wand and the mechanized vesna, a subacromial decomp ression was performed including a thorough bursectomy and a light acromioplasty. The bursal surfaceof the rotator cuff was then thoroughly inspected and demonstrated a full-thickness crescent-shapedtear within the anterior aspect of critical zone of the supraspinatus. Rotator Cuff Repair: The greater tuberosity was prepared for reimplantation using the radiofrequency ablation wand and mechanized vesna. A bleeding bed was created to expedite tendon healing. The rotator cuff edges were then debrided of non-viable tissue. A Q fix anchor with 2 suture tapes was then inserted into the medial aspect of the greater tuberosity. The 2 suture tapes were then passed in horizontal mattress fashion through the supraspinatus. Each tape was then incorporated into its own knotless anchor which was impacted into place on the lateral aspect of the greater tuberosity and tensioned thereby reducing the supraspinatus back down to its [place] position. The subacromial space was then lavaged with a copious amount of arthroscopic fluid, drained of all free-floating pieces and excess fluid and all instrumentation was removed. The wounds were then closed with 3-0 nylon, dressed with sterile Band-Aids, bandages and Hypafix tape. The patient was then revived from anesthesia and transferred to PACU in stable condition. Implants: Implant Name Type Inv. Item Serial No. Wastewater Operator Lot No. [id number] No. Used Action ANCHOR ALL-SUTURE 1.8MM Q-FIX KNOTLESS W/1 UB SUT BL - [id number] ANCHOR ALL- SUTURE 1.8MM Q-FIX KNOTLESS W/1 UB SUT BL [employer] [id number] Right 1 Implanted ANCHOR ALL-SUTURE 2.8MM Q-FIX W/2 MINITAPE SUTURE BLUE AND COBRAID WHITE - [id number] ANCHOR ALL-SUTURE 2.8MM Q-FIX W/2 MINITAPE SUTURE BLUE AND COBRAID WHITE [employer] [id number] Right 1 Implanted ANCHOR SUTURE 4.5MM ARTHROSCOPY REELX STT PEEK SS CORE KNOTLESS SHAPR TIP EXPANDABLE BX/5EA - [id number] ANCHOR SUTURE 4.5MM ARTHROSCOPY REELX STT PEEK SS CORE KNOTLESS SHAPR TIP EXPANDABLE BX/5EA [employer] [id number] Right 1 Implanted ANCHOR SUTURE 4.5MM ARTHROSCOPY REELX STT PEEK SS CORE KNOTLESS SHAPR TIP EXPANDABLE BX/5EA - [id number] ANCHOR SUTURE 4.5MM ARTHROSCOPY REELX STT PEEK SS CORE KNOTLESS SHAPR TIP EXPANDABLE BX/5EA [facility] [id number] Right 1 Implanted documented in this encounter Plan of Treatment Upcoming Encounters Date Type Department Care Team (Late st Contact Info) Description 11/26/2024 8:45 AM EDT Office Visit [address] [place] [address] Nikita Mireles PA-C [address] [place] [address] [place] [address] [email or web address] Kuldeep Dominguez, PT [address] [place] [address] [email or web address] 12/02/2024 9:40 AM EDT Office Visit [facility] Orthopedics & Sports Medicine [address] [place] [address] Nikita Mireles PA-C [address] [place] [address] [place] [address] [email or web address] 12/02/2024 11:00 AM EDT Office Visit [address] [place] [address] Nikita Mireles PA-C [address] [place] [address] [place] [address] Kuldeep Dominguez, PT 8 [place] [address] [email or web address] 12/07/2024 11:00 AM EDT Office Visit [facility] [address] [place] [address] Nikita Mireles PA-C [address] [place] [address] [place] [address] Kuldeep Dominguez, PT 8 [place] [address] 12/09/2024 10:15 AM EDT Office Visit [address] [place] [address] Nikita Mireles PA-C [address] [place] [address] [place] [address] Kuldeep Dominguez, PT 8 [place] [address] 12/16/2024 10:00 AM EDT Office Visit [address] [place] [address] Nikita Mireles PA-C [address] [place] [address] [place] [address] Karyna Aguirre, PT 8 [place] [address] 12/18/2024 11:30 AM EDT Office Visit [address] [place] [address] Nikita Mireles PA-C [address] [place] [address] [place] [address] Karyna Aguirre, PT 8 [place] [address] 12/23/2024 10:00 AM EDT Office Visit [facility] [address] [place] [address] Nikita Mireles PA-C [address] [place] [address] [place] [address] Karyna Aguirre, PT 8 [place] [address] 12/28/2024 10:00 AM EDT Office Visit [facility] [address] [place] [address] Nikita Mireles PA-C [address] [place] [address] [place] [address] Karyna Aguirre, PT 8 [place] [address] 12/30/2024 10:00 AM EDT Office Visit [facility] [address] [place] [address] Nikita Mireles PA-C [address] [place] [address] [place] [address] Karyna Aguirre, PT 8 [place] [address] 12/30/2024 11:15 AM EDT Office Visit [facility] Orthopedics & Sports Medicine [address] [place] [address] Jalen Sweeney DO [address] [place] [address] Orthopedics & Sports Medicine, [facility] [place], [place] [id number] 01/04/2025 10:00 AM EDT Office Visit [facility] [address] [place] [address] Nikita Mireles PA-C [address] [place] [address] [place] [address] Karyna Aguirre, PT 8 [place] [address] 01/06/2025 10:00 AM EDT Office Visit [address] [place] [address] Nikita Mireles PA-C [address] [place] [address] [place] [address] Karyna Aguirre, PT 8 [place] [address] 01/11/2025 10:00 AM EST Office Visit [facility] [address] [place] [address] Nikita Mireles PA-C [address] [place] [address] [place] [address] Karyna Aguirre, PT 8 [place] [address] documented as of this encounter Procedures Procedure Name Priority Date/Time Associated Diagnosis Comments CA SURGICAL ARTHROSCOPY SHOULDER XTNSV DBRDMT 311/12/2024 12:48 PM EDT Labral tear of long head of right biceps tendon, sequela Traumatic incomplete tear of right rotator cuff, sequela Special Needs 05/19 W/C approval in chart ok to schedule KP05/19 LM to schedule KP CA SHLDR ARTHROSCOP,PART ACROMIOPLAS 11/12/2024 12:48 PM EDT Labral tear of long head of right biceps tendon, sequela Traumatic incomplete tear of right rotator cuff, sequela Special Needs 05/19 W/C approval in chart ok to schedule KP05/19 LM to schedule KP CA ARTHROSCOPY SHOULDER SURGICAL BICEPS TENODESIS 11/12/2024 12:48 PM EDT Labral tear of long head of right biceps tendon, sequela Traumatic incomplete tear of right rotator cuff, sequela Special Needs 05/19 W/C approval in chart ok to schedule KP05/19 LM to schedule KP CA SHLDR ARTHROSCOP,SURG,W/R OTAT CUFF REPR 11/12/2024 12:48 PM EDT Labral tear of long head of right biceps tendon, sequela Traumatic incomplete tear of right rotator cuff, sequela Special Needs 05/19 W/C approval in chart ok to schedule KP05/19 LM to schedule KP URINE HCG STAT 11/12/2024 10:19 AM EDT documented in this encounter Results * HCG, urine (11/12/2024 10:19 AM EDT) URINE TEST Negative Negative [facility] Urine (Urine) 11/12/2024 10: 19 AM EDT 11/12/2024 10:22 AM EDT us Jalen Sweeney DO URINE ORDERABLES Final Resu lt [address] [address] documented in this encounter Visit Diagnoses Not on filedocumented in this encounter Administered Medications Inactive Administered Medications - up to 3 most recent administrations Medication Order MAR Action Action Date Dose Rate Site acetaminophen (TYLENOL) 160 mg/5 mL (5 mL) oral suspension 650 mg 650 mg, Oral, Once as needed, mild pain or 1-3 (on a general 0-10 scale), Starting on Italia 11/12/24 at 1427, For 1 dose, Recovery Room (only), If unable to tolerate tablet. Shake Well acetaminophen (TYLENOL) tablet 650 mg 650 mg, Oral, Once as needed, mild pain or 1-3 (on a general 0-10 scale), Starting on Italia 11/12/24 at 1427, For 1 dose, Recovery Room (only) aspirin tablet 325 mg 325 mg, Oral, Once, On Italia 11/12/24 at 1515, For 1 dose, Recovery & Post-op Given 11/12/2024 3:57 PM EDT 325 mg fentaNYL (PF) (SUBLIMAZE) injection 25-50 mcg 25-50 mcg, Intravenous, Every 5 min PRN, severe pain or 7-10 (on a general 0-10 scale), 1st line opioid analgesia, Starting on Italia 11/12/24 at 1427, For 8 doses, Recovery Room (only), Up to a max total dose of 200 mcg. Patient may opt to receive a pain med that is ordered for a lower level of pain Given 11/12/2024 2:29 PM EDT 50 mcg sodium chloride (NS) 0.9 % syringe flush 3 mL 3 mL, Intravenous, As needed, line care, Starting on Italia 11/12/24 at 1042, Pre-op (day of), Per Institutional IV Line Care Policy. documented in this encounter Active and Recently Administered Medications Times are shown in EDT. Scheduled Medication Order 11/10/2024 11/11/2024 11/12/2024 aspirin tablet 325 mg (COMPLETED) 325 mg, Oral, Once, On Italia 11/12/24 at 1515, For 1 dose, Recovery & Post-op 1557 (Given - Provid er: Maris Liu RN) aspirin tablet 325 mg 325 mg, Oral, Once, On Italia 11/12/24 at 1515, For 1 dose, Recovery & Post-op 1515 (Due) ceFAZolin (ANCEF) 2 gram/50 mL in dextrose IVPB premix (COMPLETED) 2 g, Intravenous, Administer over 30 Minutes, at 100 mL/hr, Once, On Italia 11/12/24 at 1130, For 1 dose, Pre-Procedure (day of), Indication: Prophylaxis, Infection Source: Surgical Prophylaxis 1248 (Given - Provid er: Dennise Rodriguez CRNA) chlorhexidine gluconate 2 % wipe Topical, Once, On Italia 11/12/24 at 1130, For 1 dose, Pre-op (day of), Apply to surgical site For TOPICAL Use Only 1130 (Due) PRN Medication Order 11/10/2024 11/11/2024 11/12/2024 acetaminophen (TYLENOL) 160 mg/5 mL (5 mL) oral suspension 650 mg(Linked Group 1) 650 mg, Oral, Once as needed, mild pain or 1-3 (on a general 0-10 scale), Starting on Italia 11/12/24 at 1427, For 1 dose, Recovery Room (only), If unable to tolerate tablet. Shake Well acetaminophen (TYLENOL) tablet 650 mg(Linked Group 1) 650 mg, Oral, Once as needed, mild pain or 1-3 (on a general 0-10 scale), Starting on Italia 11/12/24 at 1427, For 1 dose, Recovery Room (only) fentaNYL (PF) (SUBLIMAZE) injection 25-50 mcg 25-50 mcg, Intravenous, Every 5 min PRN, severe pain or 7-10 (on a general 0-10 scale), 1st line opioid analgesia, Starting on Italia 11/12/24 at 1427, For 8 doses, Recovery Room (only), Up to a max total dose of 200 mcg. Patient may opt to receive a pain med that is ordered for a lower level of pain 1429 (Given - Provid er: Maris iLu RN - Comment: right shoulder) haloperidol lactate (HALDOL) injection 1 mg 1 mg, Intravenous, Once as needed, other (free text field), 2nd line antiemetic, Starting on Italia 11/12/24 at 1427, For 1 dose, Recovery Room (only) HYDROmorphone (DILAUDID) injection syringe 0.2-0.5 mg 0.2-0.5 mg, Intravenous, Every 5 min PRN, severe pain or 7-10 (on a general 0-10 scale), 2nd line opioid analgesia, Starting on Italia 11/12/24 at 1427, For 10 doses, Recovery Room (only), Up to a max total dose of 2 mg. Patient may opt to receive a pain med that is ordered for a lower level of pain lidocaine-EPINEPHrine (XYLOCAINE w/EPI) 1%-1:100,000 injection (CANCELED) As needed, Starting on Italia 11/12/24 at 1336, Intra-op/procedure 1336 (Given - Provid er: Jalen Sweeney DO) ondansetron (PF) (ZOFRAN) injection 2-4 mg 2-4 mg, Intravenous, Once as needed, other (free text field), 1st line antiemetic, Starting on Italia 11/12/24 at 1427, For 1 dose, Recovery Room (only) oxyCODONE tablet 5 mg 5 mg, Oral, Once as needed, moderate pain or 4-6 (on a general 0-10 scale), Starting on Italia 11/12/24 at 1427, For 1 dose, Recovery Room (only), When tolerating PO's sodium chloride (NS) 0.9 % syringe flush 3 mL 3 mL, Intravenous, As needed, line care, Starting on Italia 11/12/24 at 1042, Pre-op (day of), Per Institutional IV Line Care Policy. Linked Groups Order Group 1: acetaminophen (TYLENOL) tablet 650 mgJump to med 650 mg, Oral, Once as needed, mild pain or 1-3 (on a general 0-10 scale), Starting on Italia 11/12/24 at 1427, For 1 dose, Recovery Room (only) Or acetaminophen (TYLENOL) 160 mg/5 mL (5 mL) oral suspension 650 mgJump to med 650 mg, Oral, Once as needed, mild pain or 1-3 (on a general 0-10 scale), Starting on Italia 11/12/24 at 1427, For 1 dose, Recovery Room (only), If unable to tolerate tablet. Isaías Well documented in this encounter Care Teams Computer Technical Support Specialist Relationship Specialty Start Date End Date Pcp, Not Required [address] [place] [address] PCP - General 11/09/15 documented as of this encounter Additional Source Comments The information contained in this document represents components of the legal health record. It is not the complete legal health record.[facility]
--- OUTSIDE RECORDS SUMMARY | 2024-11-12 12:35 | XMS_ITS | Encounter Summary ---
Author Organization [facility] Address [address] [place] [phone] Phone Care Team Providers Care Clinical Quality Assurance Specialist Name Role Phone Pcp, Not Required Primary Care Provider Unavaila ble Reason for Visit * Auth/Cert (Routine) Specialty Diagnoses / Procedures Referred By Contblake t Referred To Contact Diagnoses Labral tear of long head of right biceps tendon, sequela Traumatic incomplete tear of right rotator cuff, sequela Labral tear of long head of right biceps tendon, sequela [S46.111S] Traumatic incomplete tear of right rotator cuff, sequela [S46.011S] Procedures WI SHLDR ARTHROSCOP,SURG,W/ROTAT CUFF REPR ARTHROSCOPIC REPAIR ROTATOR CUFF SHOULDER Jalen Sweeney DO [facility] [place] [address] Phone: tel: fax: mailto:[email or web address] Referral ID Status Reason Start Date Expiration Date Visits Re quested Visits Authorized [id number] 05/21/2024 1 1 Encounter Details Date Type Department Care Team (Late st Contact Info) Description 11/12/2024 12:35 PM EDT - 11/12/2024 2:23 PM EDT Surgery OR Admitting Dept - [facility] Department [address] [place] [address] Jalen Sweeney DO 4 [facility] [place] [address] ARTHROSCOPIC REPAIR ROTATOR CUFF SHOULDER Surgery Details Date/Time Status Location OR Service Patient Class Case Class Case Type Trauma Case? 11/12/2024 12:35 PM Posted [facility] OR OR 02 Orthopedic Surgery Day Surgery Panel 1 Procedure LRB Anes Op Region Wound Class Comments ARTHROSCOPIC REPAIR ROTATOR CUFF SHOULDER Right General and Regional Clean (1) ARTHROSCOPIC TENODESIS BICEPS TENDON Right DECOMPRESSION SUBACROMIAL SHOULDER Right ARTHROSCOPIC DEBRIDEMENT SHOULDER Right Surgeon Surgeon Role Service Panel Jalen Sweeney, DO Primary Orthopedic Surgery 1 Nikita Mireles PA-C Assisting Orthopedic Surgery 1 Special Needs 05/19 W/C approval in chart ok to schedule KP05/19 LM to schedule KP documented in this encounter Social History Tobacco Use Types Packs/Day Years [...] Sign Reading Time Taken Comments Blood Pressure 111/58 11/12/2024 2:04 PM EDT Pulse 90 11/12/2024 2:04 PM EDT Temperature 36.5 C (97.7 F) 11/12/2024 2:04 PM EDT Respiratory Rate 20 11/12/2024 2:04 PM EDT Oxygen Saturation 100% 11/12/2024 2:04 PM EDT Inhaled Oxygen Concentration - - Weight - - Height - - Body Mass Index - - documented in this encounter Functional Status * Calculated C-SSRS Risk Score (Lifetime/Recent) Answer Date of Assessment Author No Risk Indicated 10/08/2024 12:28 PM EDT Ana Gonzalez RN * [place] Suicide Severity Rating Scale (Screener/Recent Self-Report) Question Answer Date of Assessment Author 1. Wish to be (Past 1 Month) No 025 12:28 PM EDT Ana Gonzalez, YOLANDA 2. Non-Specific Active Suici kori Thoughts (Past 1 Month) No 10/08/2024 12:28 PM EDT Ana Gonzalez , YOLANDA 6. Suicidal Behavior (Lifetime) No 12:28 PM EDT Ana Gonzalez, YOLANDA documented as of this encounter Discharge Instructions [...] to your pharmacy unless you request to cigar packer and picker the paper script from our office to [...] of movement at your shoulder. Helpful information [address] [address] [facility] PATIENT DISCHARGE INSTRUCTIONS FOR REGIONAL ANESTHESIA [facility] 60-2 05/20 Dispatcher Maintenance: May Camarillo MD DESTINATION COORDINATOR: Dennise Rodriguez CRNA gave you a form [...] you a speedy and smooth recovery. [facility] Anesthesia Department documented in this encounter [...] Mireles PA-C - 10/21/2024 8:40 AM EDT [facility] Orthopedics & Sports Medicine Date of Visit: [...] [S46.011S] Procedure(s): ARTHROSCOPIC REPAIR ROTATOR CUFF SHOULDER: 81662 (CPT??) ARTHROSCOPIC TENODESIS BICEPS TENDON: 14294 (CPT??) DECOMPRESSION SUBACROMIAL SHOULDER: 09443 (CPT??) ARTHROSCOPIC DEBRIDEMENT SHOULDER: 95279 (CPT??) Surgeon(s): Jalen Sweeney DO Bombardier, Mark, PA-C Dispatcher Maintenance: May Camarillo MD DESTINATION COORDINATOR: Dennise Rodriguez CRNA Anesthesia Type: General ASA [...] reducing the supraspinatus back down to its [place] position. The subacromial space was then lavaged [...] Implant Name Type Inv. Item Serial No. Bellows Filler Lot No. LRB No. Used Action ANCHOR ALL-SUTURE 1.8MM Q-FIX KNOTLESS W/1 UB SUT BL - [id number] ANCHOR ALL- SUTURE 1.8MM Q-FIX KNOTLESS W/1 UB SUT BL [employer] [id number] Right 1 Implanted ANCHOR ALL-SUTURE 2.8MM Q-FIX W/2 MINITAPE SUTURE BLUE AND COBRAID WHITE - [id number] ANCHOR ALL-SUTURE 2.8MM Q-FIX W/2 MINITAPE SUTURE BLUE AND COBRAID WHITE [employer] [id number] Right 1 Implanted ANCHOR SUTURE 4.5MM ARTHROSCOPY REELX STT PEEK SS CORE KNOTLESS SHAPR TIP EXPANDABLE BX/5EA - [id number] ANCHOR SUTURE 4.5MM ARTHROSCOPY REELX STT PEEK SS CORE KNOTLESS SHAPR TIP EXPANDABLE BX/5EA [facility] [id number] Right 1 Implanted ANCHOR SUTURE 4.5MM ARTHROSCOPY REELX STT PEEK SS CORE KNOTLESS SHAPR TIP EXPANDABLE BX/5EA - [id number] ANCHOR SUTURE 4.5MM ARTHROSCOPY REELX STT PEEK SS CORE KNOTLESS SHAPR TIP EXPANDABLE BX/5EA [facility] [id number] Right 1 Implanted documented in this encounter Plan of Treatment Upcoming Encounters Date Type Department Care Team (Late st Contact Info) Description 11/26/2024 8:45 AM EDT Office Visit [facility] Rehabilitation Services [address] [place] [address] Nikita Mireles PA-C [address] [place] [address] [place] [address] Kuldeep Dominguez, PT 8 [place] [address] 12/02/2024 9:40 AM EDT Office Visit [facility] Orthopedics & Sports Medicine [address] [place] [address] Nikita Mireles PA-C [address] [place] [address] [place] [address] 12/02/2024 11:00 AM EDT Office Visit [address] [place] [address] Nikita Mireles PA-C [address] [place] [address] [place] [address] Kuldeep Dominguez, PT 8 [place] [address] 12/07/2024 11:00 AM EDT Office Visit [address] [place] [address] Nikita Mireles PA-C [address] [place] [address] [place] [address] Kuldeep Dominguez, PT 8 [place] [address] 12/09/2024 10:15 AM EDT Office Visit [address] [place] [address] Nikita Mireles PA-C [address] [place] [address] [place] [address] Kuldeep Dominguez, PT 8 [place] [address] 12/16/2024 10:00 AM EDT Office Visit [address] [place] [address] Nikita Mireles PA-C [address] [place] [address] [place] [address] Karyna Aguirre, PT 8 [place] [address] 12/18/2024 11:30 AM EDT Office Visit [facility] [address] [place] [address] Nikita Mireles PA-C [address] [place] [address] Karyna Aguirre, PT 8 [place] [address] 12/23/2024 10:00 AM EDT Office Visit [address] [place] [address] Nikita Mireles PA-C [address] [place] [address] [place] [address] Karyna Aguirre, PT 8 [place] [address] 12/28/2024 10:00 AM EDT Office Visit [facility] [address] [place] [address] Nikita Mireles PA-C [address] [place] [address] [place] [address] Karyna Aguirre, PT 8 [place] [address] 12/30/2024 10:00 AM EDT Office Visit [facility] [address] [place] [address] Nikita Mireles PA-C [address] [place] [address] [place] [address] Karyna Aguirre, PT 8 [place] [address] 12/30/2024 11:15 AM EDT Office Visit [facility] Orthopedics & Sports Medicine [address] [place] [address] Jalen Sweeney DO [address] [place] [address] Orthopedics & Sports Medicine, [place] [address] 01/04/2025 10:00 AM EDT Office Visit [address] [place] [address] Nikita Mireles PA-C [address] [place] [address] [place] [address] Karyna Aguirre, PT 8 [place] [address] 01/06/2025 10:00 AM EDT Office Visit [address] [place] [address] Nikita Mireles PA-C [address] [place] [address] [place] [address] Karyna Aguirre, PT 8 [place] [address] 01/11/2025 10:00 AM EST Office Visit [address] [place] [address] Nikita Mireles PA-C [address] [place] [address] [place] [address] Karyna Aguirre, PT 8 [place] [address] documented as of this encounter Procedures Procedure Name Priority Date/Time Associated Diagnosis Comments WI SURGICAL ARTHROSCOPY SHOULDER XTNSV DBRDMT 3+ 11/12/2024 12:48 PM EDT Labral tear of long head of right biceps tendon, sequela Traumatic incomplete tear of right rotator cuff, sequela Special Needs 05/19 W/C approval in chart ok to schedule KP3/11 LM to schedule KP WI SHLDR ARTHROSCOP,PART ACROMIOPLAS 11/12/2024 12:48 PM EDT Labral tear of long head of right biceps tendon, sequela Traumatic incomplete tear of right rotator cuff, sequela Special Needs 05/19 W/C approval in chart ok to schedule KP3/ LM to schedule KP WI ARTHROSCOPY SHOULDER SURGICAL BICEPS TENODESIS 11/12/2024 12:48 PM EDT Labral tear of long head of right biceps tendon, sequela Traumatic incomplete tear of right rotator cuff, sequela Special Needs 05/19 W/C approval in chart ok to schedule KP3/ LM to schedule KP WI SHLDR ARTHROSCOP,SURG,W/R OTAT CUFF REPR 11/12/2024 12:48 PM EDT Labral tear of long head of right biceps tendon, sequela Traumatic incomplete tear of right rotator cuff, sequela Special Needs 05/19 W/C approval in chart ok to schedule KP3/11 LM to schedule KP URINE HCG STAT 11/12/2024 10:19 AM EDT documented in this encounter Results * HCG, urine (11/12/2024 10:19 AM EDT) URINE TEST Negative Negative [facility] Urine (Urine) 11/12/2024 10: 19 AM EDT 11/12/2024 10:22 AM EDT us Jalen Sweeney DO URINE ORDERABLES Final Resu lt [facility] [address] [place] [address] documented in this encounter Visit Diagnoses Diagnosis Labral tear of long head of right biceps tendon, sequela Traumatic incomplete tear of right rotator cuff, sequela documented in this encounter Administered Medications Inactive Administered [...] Given 11/12/2024 2:29 PM EDT 50 mcg lidocaine-EPINEPHrine (XYLOCAINE w/EPI) 1%-1:100,000 injection As needed, Starting on Italia 11/12/24 at 1336, Intra-op/procedure Given 11/12/2024 1:36 PM EDT 20 mL Surgical Site sodium chloride (NS) 0.9 % syringe flush [...] pain 1429 (Given - Provid er: Maris Liu RN - Comment: right shoulder) haloperidol lactate [...] Well documented in this encounter Care Teams Clinical Quality Assurance Specialist Relationship Specialty Start Date End Date Pcp, Not Required [address] [place] [address] PCP - General 11/09/15 documented as of this encounter Additional Source Comments The information contained in this document represents components of the legal health record. It is not the complete legal health record.[facility]
--- OUTSIDE RECORDS SUMMARY | 2024-11-12 12:48 | XMS_ITS | Encounter Summary ---
Author Organization [facility] Address [address] [place] [phone] Phone Care Team Providers Care Bench Jeweler Name Role Phone Pcp, Not Required Primary [...] of right rotator cuff, sequela [S46.011S] Procedures [facility] SHLDR ARTHROSCOP,SURG,W/ROTAT CUFF REPR ARTHROSCOPIC REPAIR ROTATOR CUFF SHOULDER Jalen Sweeney, [address] [place] [address] Orthopedics & Sports Medicine, [facility] [place] [address] Phone: tel: fax: [email or web address] Referral ID Status Reason Start Date Expiration Date Visits Re quested Visits Authorized [id number] 05/21/2024 1 1 Encounter Details Date Type Department Care Team (Late st Contact Info) Description 11/12/2024 12:48 PM EDT Anesthesia Event OR Admitting Dept - Virtual Department [address] [place] [id number] May Camarillo MD [address] [place] [address] [email or web address] Anesthesia Record Procedure Summary Procedure Name Responsible Anesthesiologist Anesthesia Start Time Anesthesia Stop Time ARTHROSCOPIC REPAIR ROTATOR CUFF SHOULDER (Right) Mya Camarillo MD 11/12/24 1248 11/12/24 1405 Events Date Time Event Comment 11/12/2024 1248 1248 An Start 1248 In Room 1252 An Start Data 1257 An LMA 1317 Procedure Start 1318 Lunch Break 1350 Procedure End 1354 LMA Removal 1357 an stop data 1359 Out of Room 1405 Post Op Handoff 1405 An Stop Meds Name Total midazolam 1 mg/mL 4 mg fentaNYL 50 mcg/ml 100 mcg ondansetron 2 mg/mL 4 mg dexamethasone 4 mg/mL 8 mg propofol 10 mg/mL 1,237.27 mg ceFAZolin (ANCEF) 2 gram/50 mL in dextro se IVPB premix 2 g bupivacaine-EPINEPHrine (MAR CAINEEPINEPHrine) 0.5%-1:200,000 injection (PF) 20 mL glycopyrrolate 0.2 mg/ml 0.2 mg phenylephrine (CLINTON-SYNEPHRINE) syringe i n NS 80 mcg/mL (Premix) 400 mcg Lactated Ringers 1000ml 1,500 mL * Agents Name Sevoflurane insp CO2 insp N2O exp O2 exp O2 Flow (aux) N2O insp Air Sevoflurane exp O2 Flow (fresh gas) * Blood No blood administrations on file. Lines, Drains, and Airways Type Details Placement Removal MIS Incisions 11/12/24; Arthroscop y; x3 trocar sites; (3); Right; Shoulder 11/12/24 0000 by Bay Fuchs RN LMA Placement Date: 07/03; Placement Time: 1440 11/12/24 1440 by Dennise Rodriguez CRNA Peripheral IV Placement Date: 07/03; Placement Time: 1109; Size: 18 G; Orientation: Left; Location: Wrist; Site Prep: Chlorhexidine ; Attempts: 1; Patient Tolerance: Tolerated well; Removal Date: 11/12/24; Removal Time: 1609 11/12/24 1109 by Camille Zamarripa RN 11/12/24 1609 by Maris Liu RN documented in this encounter Social History Tobacco [...] PM EDT documented as of this encounter Progress Notes * Dennise Rodriguez CRNA - 11/12/2024 5:15 PM EDT Addendum created 11/12/24 1715 by Dennise Rodriguez CRNA Flowsheet accepted documented in this encounter Procedure Notes * Dennise Rodriguez CRNA - 11/12/2024 2:41 PM EDTAssociated Order(s): Airway Placement Airway Placement Procedure Note: Procedure performed by: fellow/resident/MARINE RIGGER Anesthesiologist: May Camarillo MD Fellow/Resident/MARINE RIGGER: Dennise Rodriguez CRNA Airway procedure initiated at:11/12/2024 2:40 PM and ended at. Personal Protective Equipment: Mask: surgical mask Eye Protection: eye shield Gloves: double gloves Gown: no gown Mask Ventilation: Quality: not attempted Airway Placement: Technique: LMA Rapid sequence induction: no LMA Insertion: LMA size: 3 LMA placement attempts: 1. Outcomes: Evidence of dental injury? no Complications observed? no * Dennise Rodriguez CRNA - 11/12/2024 12:44 PM EDTAssociated Order(s): Peripheral Block Peripheral Block Placement Procedure Note: Start Time: 11/12/2024 12:25 PM Stop Time:11/12/2024 12:35 PM Reason for block: surgeon request and post op pain managment Block performed by: fellow/resident/MARINE RIGGER Anesthesiologist: May Camarillo MD Fellow/Resident/MARINE RIGGER: Dennise Rodriguez CRNA [place] Protocol Performed: consent obtained, patient identified with 2 identifiers, correct procedure verified, correct site and laterality confirmed, verified equipment, coagulation status reviewed and implant history reviewed. Procedure Details: ASA monitors applied during procedure and vitals signs recorded in nursing flowsheet during procedure. Block type: single shot Laterality: right Block location: upper extremity and interscalene brachial plexus and intercostobrachial nerve Patient position: supine Prep: chloraprep Image guidance: ultrasound guidance Ultrasound image: not saved Needle visualization: in-plane and good Nerve visualization: good Block Technique Block technique: landmark technique and ultrasound guided non-stimulating needle used Needle gauge: 22 Injection assessment:incremental injection, negative aspiration for heme and no paresthesia on injection Paresthesia: none Needle length: 5cm Post Block Placement Assessment Complications Observed: No Notes Block Notes: 15 ml interscalene 5 ml intercostobrachial nerve documented in this encounter OR Notes * Anesthesia Postprocedure Evaluation - Dennise Rodriguez CRNA - 11/12/2024 2:46 PM EDT Anesthesia Post Operative Note Anesthesia Type: general Patient evaluated in: PACU Consciousness: awake Airway/ Respiratory Status: Airway adjuncts: no airway adjuncts. Respiratory Status: no airway complications. Supplemental O2: face mask Nausea/ Vomiting: nausea and vomiting control satisfactory Hydration status: adequate Analgesia/ Pain: Pain control is: adequate Vital Signs: Post-procedure vital signs reviewed Epidural/ Spinal/ Regional Block: Regional anesthesia type: peripheral/regional nerve block Sensation: diminished as expected Motor function: diminished as expected Block complications: no block complications Other: Patient experienced no anesthesia complications. Patient does not report unexpected awareness during procedure. Patient's questions answered. Patient satisfied with anesthesia care. PACU Discharge Disposition: Phase II and then home Entered by: Dennise Rodriguez CRNA There were no known notable events for this encounter. Vital Signs: Vitals Value Taken Time Pulse 79 11/12/24 1446 BP 133/64 11/12/24 1445 SpO2 100 % 11/12/24 1446 Resp 15 11/12/24 1446 Temp 36.5 ??C (97.7 ??F) 11/12/24 1404 Vitals shown include unfiled device data. No vitals data found for the desired time range. * Anesthesia Preprocedure Evaluation - May Camarillo MD - 11/11/2024 8:39 AM EDT Patient: Paul Estrella Date of Surgery: 11/12/2024 Procedure: ARTHROSCOPIC REPAIR ROTATOR CUFF SHOULDER (Right) Surgeons and Role: * Jalen Sweeney DO - Primary Relevant Problems No relevant active problems General: Patient snapshot reviewed. Paul Estrella is a 39 y/o female with a PMH of Asthma, who presents for a Arthroscopic rotator cuffrepair. History (imported from record): Past Medical History: No date: Asthma No date: Kidney stones - Past Surgical History: No date: BREAST AUGMENTATION No date: ROTATOR CUFF REPAIR; Right No date: TUBAL LIGATION - Social History: Social History Tobacco Use Smoking status: Never Smokeless tobacco: Never Vaping Use Vaping status: never used Alcohol use: Yes Comment: glass of wine once every 6 months Drug use: No - Prior Anesthetics: Previous Anesthesia Records Displaying the 20 most recent records Date Procedure Department Exhaust And Muffler Fitter Notable Events Planned Anesthesia Type 11/12/24 ARTHROSCOPIC REPAIR ROTATOR CUFF SHOULDER (Right) OR Admitting Dept - Virtual Department - Physical Exam Airway: The airway exam is normal. Mallampati score: III. Neck ROM is full. Mouth opening: normal. TM distance: normal. Cardiovascular: Heart rhythm: regular (-) murmur Pulmonary: Breath sounds are clear to auscultation. Neurological: (+) alert and oriented to self Vital Signs (imported from record): There were no vitals taken for this visit. - Lab Results (imported from record): CBC: No results found for: WBC , RBC , HGB , HCT , PLT , MCV , MCH , MCHC , RDW , MVP , NRBC , NRBCA - BMP: No results found for: NA , K , CL , CO2 , BUN , CRE , GLU , CA , GFR , ANION - COAGS: No results found for: PT , INR , PTT , FIB , ACT - Cardiac Testing: No results found for: CPK , CPKMB , TROPT , NTBNP - Imaging and Additional Testing (imported from record): The following test(s) were reviewed: EKG. Anesthesia Assessment and Plan ASA physical status: 2 Primary anesthetic: general Induction type: intravenous Nerve block type: interscalene Post-op analgesia: nerve block. Airway: The plan for the airway is: ETT. Monitoring/Lines: The plan for monitoring and lines is: standard monitor. Post-op destination/disposition: PACU Informed Consent: Anesthetic plan and risks discussed with: patient. documented in this encounter Plan of Treatment Upcoming Encounters Date Type Department Care Team (Late st Contact Info) Description 11/26/2024 8:45 AM EDT Office Visit [facility] [address] [place] [address] Nikita Mireles PA-C [address] [place] [address] [place] [address] Kuldeep Dominguez, PT [address] [place] [address] 12/02/2024 9:40 AM EDT Office Visit [facility] [address] [place] [address] Nikita Mireles PA-C [address] [place] [address] [place] [address] 12/02/2024 11:00 AM EDT Office Visit [facility] [address] [place] [address] Nikita Mireles PA-C [address] [place] [address] [place] [address] Kuldeep Dominguez, PT [address] [place] [address] 12/07/2024 11:00 AM EDT Office Visit [facility] [address] [place] [address] Nikita Mireles PA-C [address] [place] [address] [place] [address] Kuldeep Dominguez, PT [address] [place] [address] 12/09/2024 10:15 AM EDT Office Visit [facility] [address] [place] [address] Nikita Mireles PA-C [address] [place] [address] [place] [address] Kuldeep Dominguez, PT [address] [place] [address] 12/16/2024 10:00 AM EDT Office Visit [facility] [address] [place] [address] Nikita Mireles PA-C [address] [place] [address] [place] [address] Karyna Aguirre, PT [address] [place] [address] 12/18/2024 11:30 AM EDT Office Visit [facility] [address] [place] [address] Nikita Mireles PA-C [address] [place] [address] [place] [address] Karyna Aguirre, PT [address] [place] [address] 12/23/2024 10:00 AM EDT Office Visit [facility] [address] [place] [address] Nikita Mireles PA-C [address] [place] [address] [place] [address] Karyna Aguirre, PT [address] [place] [address] 12/28/2024 10:00 AM EDT Office Visit [address] [place] [address] Nikita Mireles PA-C [address] [place] [address] [place] [address] Karyna Aguirre, PT [address] [place] [address] 12/30/2024 10:00 AM EDT Office Visit [address] [place] [address] Nikita Mireles PA-C [address] [place] [address] [place] [address] Karyna Aguirre, PT [address] [place] [address] 12/30/2024 11:15 AM EDT Office Visit [facility] [address] [place] [address] Jalen Sweeney DO [address] [place] [address] [facility] [place] [address] 01/04/2025 10:00 AM EDT Office Visit [facility] [address] [place] [address] Nikita Mireles PA-C [address] [place] [address] [place] [address] Karyna Aguirre, PT [address] [place] [address] 01/06/2025 10:00 AM EDT Office Visit [facility] [address] [place] [address] Nikita Mireles PA-C [address] [place] [address] [place] [address] Karyna Aguirre, PT [address] [place] [address] 01/11/2025 10:00 AM EST Office Visit [facility] [address] [place] [address] Nikita Mireles PA-C [address] [place] [address] [place] [address] Karyna Aguirre, PT [address] [place] [address] documented as of this encounter Procedures Procedure Name Priority Date/Time Associated Diagnosis Comments AIRWAY PLACEMENT Routine 11/12/2024 2:40 PM EDT ANES BLOOD PATCH PERFORMABLE Routine 11/12/2024 12:25 PM EDT [facility] ANEST[facility]IA PERIPHERAL BLOCK PLACEHOLDER Routine 11/12/2024 12:25 PM EDT documented in this encounter Results * ANES ETT DOUBLE LUMEN - AIRWAY LDA (11/12/2024 2:40 PM EDT) Narrative Dennise Rodriguez CRNA - 11/12/2024 2:40 PM EDT Dennise Rodriguez CRNA 11/12/2024 2:41 PM Airway Placement Procedure Note: Procedure performed by: fellow/resident/MARINE RIGGER Anesthesiologist: May Camarillo MD Fellow/Resident/MARINE RIGGER: Dennise Rodriguez CRNA Airway procedure initiated at:11/12/2024 2:40 PM and ended at. Personal Protective Equipment: Mask: surgical mask Eye Protection: eye shield Gloves: double gloves Gown: no gown Mask Ventilation: Quality: not attempted Airway Placement: Technique: LMA Rapid sequence induction: no LMA Insertion: LMA size: 3 LMA placement attempts: 1. Outcomes: Evidence of dental injury? no Complications observed? no us May Camarillo MD [facility] Final Resu lt * [facility] ANESTHESIA PERIPHERAL BLOCK PLACEHOLDER, ANES BLOOD PATCH PERFORMABLE (11/12/2024 12:25 PM EDT) Narrative Dennise Rodriguez CRNA - 11/12/2024 12:25 PM EDT Dennise Rodriguez CRNA 11/12/2024 12:47 PM Peripheral Block Placement Procedure Note: Start Time: 11/12/2024 12:25 PM Stop Time:11/12/2024 12:35 PM Reason for block: surgeon request and post op pain managment Block performed by: fellow/resident/MARINE RIGGER Anesthesiologist: May Camarillo MD Fellow/Resident/MARINE RIGGER: Dennise Rodriguez CRNA [place] Protocol Performed: consent obtained, patient identified with 2 identifiers, correct procedure verified, correct site and laterality confirmed, verified equipment, coagulation status reviewed and implant history reviewed. Procedure Details: ASA monitors applied during procedure and vitals signs recorded in nursing flowsheet during procedure. Block type: single shot Laterality: right Block location: upper extremity and interscalene brachial plexus and intercostobrachial nerve Patient position: supine Prep: chloraprep Image guidance: ultrasound guidance Ultrasound image: not saved Needle visualization: in-plane and good Nerve visualization: good Block Technique Block technique: landmark technique and ultrasound guided non-stimulating needle used Needle gauge: 22 Injection assessment:incremental injection, negative aspiration for heme and no paresthesia on injection Paresthesia: none Needle length: 5cm Post Block Placement Assessment Complications Observed: No Notes Block Notes: 15 ml interscalene 5 ml intercostobrachial nerve Result [facility] Dennise Selfean MARINE RIGGER [facility] F inal Result documented in this encounter Visit Diagnoses Not on filedocumented in this encounter Administered Medications Inactive Administered Medications - up to 3 most recent administrations Medication Order MAR Action Action Date Dose Rate Site BUPivacaine-EPINEPHrine (PF) (MARCAINE-EPINEPHrine) 0.5%-1:200,000 injection Nerve Block, Once PRN Procedure, Starting on [place] 11/12/24 at 1230, For 1 dose, Anesthesia Intra-op Given 11/12/2024 12:30 PM EDT 20 mL Right Neck ceFAZolin (ANCEF) 2 gram/50 mL in dextrose IVPB premix 2 g, Intravenous, Administer over 30 Minutes, at 100 mL/hr, Once, On Italia 11/12/24 at 1130, For 1 dose, Pre-Procedure (day of), Indication: Prophylaxis, Infection Source: Surgical Prophylaxis Given 11/12/2024 12:48 PM EDT 2 g dexAMETHasone (DECADRON) injection Intravenous, As needed, Starting on Italia 11/12/24 at 1304, Anesthesia Intra-op Given 11/12/2024 1:04 PM EDT 8 mg fentaNYL (PF) (SUBLIMAZE) injection Intravenous, As needed, Starting on [place] 11/12/24 at 1321, Anesthesia Intra-op Given 11/12/2024 1:49 PM EDT 25 mcg Given 11/12/2024 1:38 PM EDT 25 mcg Given 11/12/2024 1:21 PM EDT 50 mcg glycopyrrolate (ROBINUL) injection Intravenous, As needed, Starting on It[place] 11/12/24 at 1251, Anesthesia Intra-op Given 11/12/2024 12:51 PM EDT 0.2 mg lactated Ringers infusion Intravenous, Continuous PRN, Starting on Italia 11/12/24 at 1149, Anesthesia Intra-op New Bag 11/12/2024 11:49 AM EDT midazolam (PF) (VERSED) injection Soln Intravenous, As needed, Starting on It[place] 11/12/24 at 1220, Anesthesia Intra-op Given 11/12/2024 1:20 PM EDT 2 mg Given 11/12/2024 12:20 PM EDT 2 mg ondansetron (PF) (ZOFRAN) injection Intravenous, As needed, Starting on [place] 11/12/24 at 1346, Anesthesia Intra-op Given 11/12/2024 1:46 PM EDT 4 mg phenylephrine HCl in 0.9% NaCl (CLINTON-SYNEPHRINE) 0.8 mg/10 mL (80 mcg/mL) in NS injection syringe premix Intravenous, As needed, Starting on It[place] 11/12/24 at 1312, Anesthesia Intra-op Given 11/12/2024 1:45 PM EDT 80 mcg Given 11/12/2024 1:36 PM EDT 80 mcg Given 11/12/2024 1:25 PM EDT 80 mcg propofol (DIPRIVAN) infusion Intravenous, As needed, Starting on [place] 11/12/24 at 1224, Anesthesia Intra-op Rate/Dose Change 11/12/2024 1:45 PM EDT 100 mcg/kg/min 44.34 mL/hr Rate/Dose Change 11/12/2024 1:22 PM EDT 200 mcg/kg/min 88. 68 mL/hr Rate/Dose Change 11/12/2024 1:16 PM EDT 150 mcg/kg/min 66. 51 mL/hr documented in this encounter Care Teams Bench Jeweler Relationship Specialty Start Date End Date Pcp, Not Required [address] [place] [id number] PCP - General 11/09/15 documented as of this encounter Additional Source Comments The information contained in this document represents components of the legal health record. It is not the complete legal health record.[facility]
[2024-11-13] VITALS (12 sets, daily range): BP systolic 116–155; BP diastolic 69–84; PULSE 84–98; RESP 14–20; TEMP 36.8–37.1; O2SAT 94–100; BMI 25.8
--- NOTE | ~2024-11-13 | CT_ITS ---
EXAMINATION: CT SHOULDER WITH CONTRAST, RIGHT CLINICAL INFORMATION: Recent surgery. Worsening pain despite pain meds COMPARISON: None available. TECHNIQUE: Coronal and sagittal reformatted images were generated from the original axial data set. ALARA: The examination used one or more of the following radiation dose reduction techniques: Automated exposure control, iterative reconstruction, and/or adjustment of mA and/or KV. DLP: 402 mGY*cm FINDINGS: 2 anchors are redemonstrated in the greater tuberosity consistent with rotator cuff repair. There is no evidence of migration of the anchors. There is also a lucent tract through the anterosuperior anatomic neck of humerus, at the cephalad margin of the anterior greater tuberosity. Rotator cuff is grossly intact. Tracks are seen related to SLAP repair through the superior and posterior labrum Minimal degenerative changes in the AC joint with tiny marginal osteophytes and minimal subchondral degenerative cystic change. No fractures are evident. There is minimal gas or vacuum phenomena within the glenohumeral joint capsule, and the cephalad joint space and in the axillary pouch. There is also an air bubble in the anterior shoulder at the junction of subcutaneous soft tissues and anterior deltoid muscle. There is fat stranding of the adjacent subcutaneous soft tissues. There are also small air bubbles in the deep soft tissues at the base of the neck on the right. Visible portions of the lungs are clear. Breast augmentation has been performed. Subpectoral implant appears intact. CT/CT shoulder RT w IV con IMPRESSION: Postoperative changes related to recent rotator cuff repair and SLAP repair. Minimal AC joint arthropathy. Electronically signed by: Rolando Guzman MD 11/13/2024 01:00 PM EDT
--- NOTE | 2024-11-13 10:02 | ED_ITS ---
HPI - General Adult General Chief complaint: General Medical Stated complaint: pain shoulder Time Seen by Provider: 11/13/24 11:02 Source: patient Mode of arrival: ambulatory Limitations: no limitations History of Present Illness ED Provider: Dr. Carlton HPI narrative: 39-year-old female no medical history presented hospital today for evaluation of right shoulder pain. Patient has had recent surgery of rotator cuff surgery performed at [facility]. Patient presents here due to worsening right shoulder pain. Patient stated this is worse than her postop pain. Patient has been taking oxycodone without any alleviation of this pain. Patient states it feels like it is inside her shoulder. She contacted her doctor office who recommended her come to the ER for further evaluation. She denies any fever. Related Data Previous Rx's ?Medication ?Instructions ?Recorded oxycodone 5 mg capsule 5 mg PO Q6H PRN severe pain (scale 09/23/23 score 7-10) #8 caps ondansetron 4 mg disintegrating 4 mg PO Q6-8H PRN naus ea and 01/19/24 tablet vomiting #7 tabs oxycodone-acetaminophen 5 mg-325 1 tab PO Q6H PRN pain #20 tabs 01/19/24 mg tablet (Percocet) tamsulosin 0.4 mg capsule (Flomax) 0.4 mg PO BEDTIME # 10 caps 01/19/24 ketorolac 10 mg tablet 10 mg PO TID PRN pain #12 ta bs 02/23/24 ondansetron 4 mg disintegrating 4 mg PO Q6H PRN nausea and 02/23/24 tablet vomiting #14 tabs prednisone 20 mg tablet 20 mg PO DAILY #3 tabs 02/22 tamsulosin 0.4 mg capsule 0.4 mg PO DAILY #20 caps hydromorphone 4 mg tablet 4 mg PO Q6H PRN pain #14 tab s 11/13/24 (Dilaudid) Allergies Allergy/AdvReac Type Severity Reaction Status Date / Time No Known Allergies Allergy Verified 11/13/24 10:05 Review of Systems 2 Review of Systems: Pertinent review of systems as mentioned in HPI. All other system otherwise negative. [facility] Past Medical History [facility] Narrative: Medical history as mentioned in [facility] Medical History Kidney stone Medullary sponge kidney Social History Social History Advance Directives: No Advance Directives Information Provided: Yes Physical Exam ED Exam Exam: General: Pleasant, no distress, interacting appropriately Head: Normacephalic, atraumatic ENT: oral mucosa moist, neck supple, no tracheal deviation Cardiovascular: regular rate, regular rhythm, no murmurs, rubbing, gallops Respiratory: CTAB, no wheeze, rales, rhonchi Extremities: Patient does have swelling of the right shoulder consistent with a post surgery swelling. I did examine the patient's incision site. Does not appear to be erythematous no obvious pus drainage, from the incision site. Neurological: Awake and alert, no facial droop noted Skin: Warm and dry Psychiatric: Appropriate mood and thoughts Vital Signs: Vital Signs - 24 hr 11/13/24 10:02 11/13/24 11:56 11/13/24 12:24 Temperature 98.7 F 98.5 F Pulse Rate 98 88 Respiratory Rate 16 18 16 Blood Pressure 155/83 H 147/81 H Pulse Oximetry 97 94 Oxygen Delivery Method Room Air Room Air 11/13/24 12:59 11/13/24 13:11 11/13/24 13:25 Temperature 98.2 F Pulse Rate 89 91 92 Respiratory Rate 15 20 20 Blood Pressure 124/73 136/83 136/81 Pulse Oximetry 100 96 97 Oxygen Delivery Method Room Air Room Air Room Air 11/13/24 13:29 11/13/24 13:46 Temperature Pulse Rate 84 Respiratory Rate 20 14 Blood Pressure 126/84 Pulse Oximetry 97 Oxygen Delivery Method Room Air BMI result Body Mass Index 25.8 Course Course Course Narrative: This is a rapid medical exam performed by Lorraine Rivas NP: Additional HPI, ROS, PE not included below will be deferred to primary provider. Patient is a 39-year-old F s/p rotator cuff repair at [facility] yesterday presenting to the ED with complaint of right shoulder pain. Discharged home with oxycodone, ice machine, Tylenol. States pain is still 10/10. Plan: basic labs Medications Administered Discontinued Medications Generic Name Dose Route Start Last Admin Trade Name Freq PRN Reason Stop Dose Admin Ceftriaxone Sodium 1 gm 11/13/24 11:47 11/13/24 11:55 Ceftriaxone Sodium 1 Gm Vial IVPUSH 11/13/24 11:48 1 gm ONCE ONE Administration Hydromorphone HCl 0.5 mg 11/13/24 11:38 11/13/24 11:56 Hydromorphone Hcl 0.5 Mg/0.5 Ml Syringe IVPUSH 11/13/24 11:39 0.5 mg ONCE ONE Administration Protocol Hydromorphone HCl 1 mg 11/13/24 13:25 11/13/24 13:29 Hydromorphone Hcl 1 Mg/Ml Syringe IVPUSH 11/13/24 13:26 1 mg ONCE ONE Administration Protocol Hydromorphone HCl 4 mg 11/13/24 14:43 11/13/24 15:36 Hydromorphone Hcl 2 Mg Tablet PO 11/13/24 14:44 4 mg ONCE ONE Administration Sodium Chloride 1,000 mls @ 999 mls/hr 11/13/24 11:45 11/13/24 13:29 Ns IV 11/13/24 12:45 Infused .Q1H1M JASMEET Infusion Iohexol 100 ml 11/13/24 12:16 11/13/24 12:16 Iohexol 350 Mg/Ml 100 Ml Infus..Btl IV 11/13/24 12:17 85 ml ONCE ONE Administration Ondansetron HCl 4 mg 11/13/24 11:38 11/13/24 11:56 Ondansetron Hcl 4 Mg/2 Ml Vial IVPUSH 11/13/24 11:39 4 mg ONCE ONE Administration Medical Decision Making Medical Decision Making [facility] Narrative: This is a 39-year-old female presented hospital today for right shoulder pain. Patient has had recent rotator cuff surgery yesterday at [facility]. Patient had lab work performed. She does have leukocytosis at 17.4 chemistries unremarkable. We will add lactic acid and blood culture to the ordered. Patient does not appear to be toxic, exam. I did perform a sepsis focused exam. We will order a CT imaging of her right shoulder to assess for any signs of abscess or infection or signs of hemarthrosis. I have high suspicion for hemarthrosis in her right shoulder joint given her description of her pain. IV Dilaudid and IV Zofran be given for her symptoms. We will also plan to start patient on IV fluid. Empiric ceftriaxone IV will be given to patient CT imaging shows postoperative changes with soft tissue swelling. No obvious signs of abscess. ESR is not elevated. Patient does have leukocytosis. Did place a call to discuss the case with Dr. Sweeney on-call provider. They stated that patient did require more than necessary anesthesia. Does recommends changing her opioid medication. They do not think there is any acute changes going on for surgery. They stated her nerve block may have worn off. The surgery was not complicated. They will plan to follow up we will patient's closely. We will plan to trial patient on p.o. Dilaudid. On reassessment patient did do well on p.o. Dilaudid. She states her pain is much more controlled. We will plan to discharge patient with p.o. Dilaudid. And have her follow up in clinic. She agrees and understands this plan. Differential Diagnosis Differential Diagnoses: The differential diagnosis associated with the presentation includes Septic arthritis, hemarthrosis, abscess, seroma, cellulitis Lab Data MDM Lab Attestation statement: I reviewed the patient's lab results. 11/13/24 11:08 11/13/24 11:08 Labs: Lab Results 11/13/24 11/13/24 11/13/24 Range/Units 11:08 11:48 12:29 WBC 17.4 H (4.8-10.8) X10*3/uL RBC 4.10 L (4.20-5.50) X10*6/uL Hgb 12.0 (12.0-16.0) g/dl Hct 35.0 L (37.0-47.0) % MCV 85.4 (80.0-98.0) fL MCH 29.3 (27.0-33.0) pg MCHC 34.3 (31.0-35.0) g/dl RDW 12.3 (11.0-16.0) % Plt Count 291 (160-400) X10*3/uL MPV 11.0 (9.4-12.3) fL Immature Gran % (Auto) 0.3 (0.0-0.4) % Neut % (Auto) 76.4 H (45-73) % Lymph % (Auto) 15.7 L (20-40) % Towner % (Auto) 7.5 (2-11) % Eos % (Auto) 0.0 (0-4) % Baso % (Auto) 0.1 (0-2) % Lymph # (Auto) 2.7 (1.2-4.9) X10*3/uL Towner # (Auto) 1.3 H (0.1-1.2) X10*3/uL Eos # (Auto) 0.0 (0.0-0.4) X10*3/uL Baso # (Auto) 0.0 (0.0-0.2) X10*3/uL Abs Immat Gran (auto) 0.06 H (0.00-0.03) X10*3/uL Absolute Neuts (auto) 13.3 H (2.0-8.3) x10*3/uL Absolute Nucleated RBC 0.000 (0.0-0.012) X10*3/uL Nucleated RBC % (auto) 0.0 (0.0-0.2) /100WBC ESR 10 (0-20) MM/HR Sodium 138 (135-145) mmol/L Potassium 3.6 (3.3-5.1) mmol/L Chloride 106 (96-108) mmol/L Carbon Dioxide 25 (22-29) mmol/L Anion Gap 11 L (12-20) BUN 8 L (9-16) mg/dL Creatinine 0.54 (0.5-1.4) mg/dL Estim Creat Clear Calc 144.1 Estimated GFR > 60 Random Glucose 107 (60-115) mg/dL Lactic Acid 1.5 (0.5-2.0) mmol/L Calcium 9.4 (8.4-10.2) mg/dL Total Bilirubin 0.4 (0.0-1.0) mg/dL AST 21 (5-31) U/L ALT 15 (0-31) U/L Alkaline Phosphatase 62 (39-117) U/L Total Protein 7.2 (6.5-8.0) g/dL Albumin 4.3 (3.5-5.0) g/dL Independent Interpretation I performed an independent interpretation of an: CT Scan Radiology Impression Discussion of test interpretation with radiology: I have reviewed the radiologist's reading. Discharge Plan Discharge Clinical Impression: Right shoulder pain Qualifiers: Chronicity: acute Qualified Code(s): M25.511 - Pain in right shoulder Patient Disposition: Home, Self-Care Additional Instructions: Please follow up with your orthopedic team. They have told me that you would need to call the education department registrar to schedule an appointment for follow up. Prescriptions: New hydromorphone [Dilaudid] 4 mg tablet 4 mg PO Q6H PRN (Reason: pain) Qty: 14 0RF Rx Instructions: Partial Fill upon patient request. No Action oxycodone 5 mg capsule 5 mg PO Q6H PRN (Reason: severe pain (scale score 7-10)) Qty: 8 0RF Rx Instructions: Partial Fill upon patient request. oxycodone-acetaminophen [Percocet] 5-325 mg tablet 1 tab PO Q6H PRN (Reason: pain) Qty: 20 0RF Rx Instructions: Partial Fill upon patient request. ondansetron 4 mg tablet,disintegrating 4 mg PO Q6-8H PRN (Reason: nausea and vomiting) Qty: 7 0RF tamsulosin [Flomax] 0.4 mg capsule 0.4 mg PO BEDTIME Qty: 10 0RF tamsulosin 0.4 mg capsule 0.4 mg PO DAILY Qty: 20 0RF prednisone 20 mg tablet 20 mg PO DAILY Qty: 3 0RF ketorolac 10 mg tablet 10 mg PO TID PRN (Reason: pain) Qty: 12 0RF ondansetron 4 mg tablet,disintegrating 4 mg PO Q6H PRN (Reason: nausea and vomiting) Qty: 14 0RF Print Language: Yi
--- NOTE | 2024-11-13 10:17 | MHC.EDTECH ---
pt refused labs!
[2024-11-13 11:12] LABS: MANUAL DIFF FLAG NO
--- OUTSIDE RECORDS SUMMARY | 2024-11-13 11:12 | XMS_ITS | Clinical Summary ---
Author Organization [facility] Address [address] [address] Phone Care Team Providers Care Director Systems Name Role Phone Pcp, Not Required Primary Care Provider Unavaila ble Allergies Active Allergy Reactions Criticality Noted Date Comments Ceftriaxone Hives Medium 12/05/2019 Medications therapeutic multivitamin tablet Take 1 tablet by mouth daily. Active mirtazapine (REMERON) 15 MG tablet Take 15 mg by mouth nightly at bedtime. Active albuterol 90 mcg/actuation inhaler Inhale 2 puffs into the lungs every 6 (six) hours as needed for wheezing. 18 g 5 Active inhaler spacing device (AEROCHAMBER,BETTY ATHERITE) Spcr Inhale 1 each into the lungs every 4 (four) hours as needed (Use with your albuterol inhaler). 1 each 5 Active tamsulosin (FLOMAX) 0.4 mg Cap Take 1 capsule (0.4 mg total) by mouth daily for 10 days. 10 capsule 5 Active oxyCODONE 5 MG immediate release tablet Take 1-2 tablets (5-10 mg total) by mouth every 4 (four) hours as needed for pain (specific location in comments) (postop shoulder pain). Partial fill ok 30 tablet 5 Active ibuprofen (ADVIL,MOTRIN) 600 MG tablet Take 1 tablet (600 mg total) by mouth every 6 (six) hours for 5 days. 20 tablet 5 11/13/19 25 Discontin ued(Stop Taking at Discharge ) Active Problems No known active problems Encounters Date Type Department Care Team Description 11/13/2024 Telephone [facility] Orthopedics & Sports Medicine [address] [place] [address] Brandee Vang RN Pain control 11/12/2024 12:48 PM EDT Anesthesia Event OR Admitting Dept - Virtual Department [address] [place] [address] May Camarillo MD 11/12/2024 12:35 PM EDT - 11/12/2024 2:23 PM EDT Surgery OR Admitting Dept - Virtual Department [address] [place] [address] Jalen Sweeney, ARTHROSCOPIC REPAIR ROTATOR CUFF SHOULDER 11/12/2024 10:01 AM EDT - 11/12/2024 4:15 PM EDT Hospital Encounter OR Admitting Dept - Virtual Department [address] [place] [address] Jalen Sweeney DO Discharge Disposition: Home or Self Care 11/12/2024 Procedure Pass OR Admitting Dept - Virtual Department [address] [place] [phone] 11/11/2024 8:00 AM EDT Pre-Admission Testing Pre Procedure Evaluation [address] [place] [address] Jalen Sweeney DO 10/21/2024 8:40 AM EDT Office Visit [facility]ics [facility] Sports Medicine [address] [place] [address] Nikita Mireles PA-C Labral tear of long head of right biceps tendon, sequela (Primary Dx); Traumatic incomplete tear of right rotator cuff, sequela; Preop examination 10/08/2024 4:13 PM EDT - 10/08/2024 8:03 PM EDT Emergency [facility] Emergency [address] [place] [phone] Harika Wright PA-C Discharge Disposition: Home or Self Care 10/08/2024 Procedure Pass [facility], Ct Scan - [address] [address] 09/30/2024 9:53 AM EDT - 09/30/2024 11:59 PM EDT Hospital Encounter [facility] EKG [address] [place] [address] Jalen Sweeney, Discharge Disposition: Home or Self Care from Last 3 Months Social History Tobacco Use Types Packs/Day Years [...] Orientation Straight 09/14/2023 7: 34 PM EDT Last Filed Vital Signs Vital Sign Reading Time Taken Comments Blood Pressure 136/68 11/12/2024 4:00 PM EDT Pulse 82 11/12/2024 3:15 PM EDT Temperature 36.5 C (97.7 F) 11/12/2024 2:04 PM EDT Respiratory Rate 13 11/12/2024 3:15 PM EDT Oxygen Saturation 99% 11/12/2024 4:00 PM EDT Inhaled Oxygen Concentration - - Weight 73.9 kg (163 lb) 10/28/2024 10:49 AM EDT Height 167.6 cm (5' 6 ) 10/28/2024 10:49 AM EDT Body Mass Index 26.31 10/28/2024 10:49 AM EDT Plan of Treatment Upcoming Encounters Date Type Department Care Team (Late st Contact Info) Description 11/26/2024 8:45 AM EDT Office Visit [facility] Rehabilitation Services [address] [place] [address] Nikita Mireles PA-C [address] [place] [address] [place] [address] Kuldeep Dominguez, PT [address] [place] [address] 12/02/2024 9:40 AM EDT Office Visit [facility] Orthopedics & Sports Medicine [address] [place] [address] Nikita Mireles PA-C [address] [place] [address] [place] [address] [email or web address] 12/02/2024 11:00 AM EDT Office Visit [address] [place] [address] Nikita Mireles PA-C [address] [place] [address] [place] [address] Kuldeep Dominguez, PT [address] [place] [address] 12/07/2024 11:00 AM EDT Office Visit [address] [place] [address] Nikita Mireles PA-C [address] [place] [address] [place] [address] Kuldeep Dominguez, PT [address] [place] [address] 12/09/2024 10:15 AM EDT Office Visit [address] [place] [address] Nikita Mireles PA-C [address] [place] [address] [place] [address] Kuldeep Dominguez, PT [address] [place] [address] 12/16/2024 10:00 AM EDT Office Visit [address] [place] [address] Nikita Mireles PA-C [address] [place] [address] [place] [address] [email or web address] Karyna Aguirre, PT [address] [place] [address] 12/18/2024 11:30 AM EDT Office Visit [address] [place] [address] Nikita Mireles PA-C [address] [place] [address] [place] [address] Karyna Aguirre, PT [address] [place] [address] 12/23/2024 10:00 AM EDT Office Visit [address] [place] [address] Nikita Mireles PA-C [address] [place] [address] [place] [address] Karyna Aguirre, PT [address] [place] [address] 12/28/2024 10:00 AM EDT Office Visit [address] [place] [address] Nikita Mireles PA-C [address] [place] [address] [place] [address] Karyna Aguirre, PT [address] [place] [address] 12/30/2024 10:00 AM EDT Office Visit [address] [place] [address] Nikita Mireles PA-C [address] [place] [address] [place] [address] Karyna Aguirre, PT [address] [place] [address] 12/30/2024 11:15 AM EDT Office Visit [facility] Orth[facility]ics & Sports Medicine [address] [place] [address] Jalen Sweeney DO [address] [place] [address] Orthopedics & Sports Medicine, [facility] [place] [address] 01/04/2025 10:00 AM EDT Office Visit [address] [place] [address] Nikita Mireles PA-C [address] [place] [address] [place] [address] Karyna Aguirre, PT [address] [place] [address] 01/06/2025 10:00 AM EDT Office Visit [address] [place] [address] Nikita Mireles PA-C [address] [place] [address] [place] [address] Karyna Aguirre, PT [address] [place] [address] 01/11/2025 10:00 AM EST Office Visit [address] [place] [address] Nikita Mireles PA-C [address] [place] [address] [place] [address] Karyna Aguirre, PT [address] [place] [address] [email or web address] Health Maintenance Due Date Last Done Comments Adult Td,Tdap Booster 1986 DEPRESSION SCREENING 1998 HEPATITIS C SCREENING 2004 HIV ONE-TIME SCREENING (18-6 5 YEARS) 2004 PAP SMEAR 06/25/2007 INFLUENZA VACCINE (#1) 2024 COVID-19 VACCINE (2023-2 5 season) 2024 SCREENING FOR DIABETES 10/09/2027 10/08/2024 SMOKING STATUS SCREENING (On ce After 26 Yrs) Completed 11/12/2024 HEPATITIS A VACCINES Aged Out No long er eligible based on patient's age to complete this topic HIB VACCINES Aged Out No longer eligi ble based on patient's age to complete this topic MENINGOCOCCAL VACCINES (ACWY) Aged Out No longer eligible based on patient's age to complete this topic MENINGOCOCCAL VACCINES (B) Aged Out N o longer eligible based on patient's age to complete this topic PNEUMOCOCCAL VACCINES (0-49 years) Aged Out No longer eligible based on patient's age to complete this topic Medical Devices Implanted Type Area Ball Mill Mixer Device Identifier Shelf Expiration Date Model / Serial / Lot Breast Breast Tavernier All-Suture 1.8mm Q-Fix Knotless W/1 Ub Sut Bl - [id number] Implanted:Qty: 1 on 11/12/2024 by Jalen Sweeney DO at [facility] Right: Shoulder [employer] [id number] 07/18/2027 [id number] / / [id number] Tavernier All-Suture 2.8mm Q-Fix W/2 Minitape Suture Blue And Cobraid White - [id number] Implanted:Qty: 1 on 11/12/2024 by Jalen Sweeney DO at [facility] Right: Shoulder [employer] 03/20/2027 [id number] / / [id number] Tavernier Suture 4.5mm Arthroscopy Reelx Stt Peek Ss Core Knotless Shapr Tip Expandable Bx/5ea - [id number] Implanted:Qty: 1 on 11/12/2024 by Jalen Sweeney DO at [facility] Right: Shoulder [employer] [id number] 07/28/2026 [id number] / / [id number] Tavernier Suture 4.5mm Arthroscopy Reelx Stt Peek Ss Core Knotless Shapr Tip Expandable Bx/5ea - [id number] Implanted:Qty: 1 on 11/12/2024 by aJlen Sweeney DO at [facility] Right: Shoulder [employer] [id number] 05/20/2026 [id number] / / [id number] Procedures Procedure Name Priority Date/Time Associated Diagnosis Comments AIRWAY PLACEMENT Routine 11/12/2024 2:40 PM EDT [facility] SURGICAL ARTHROSCOPY SHOULDER XTNSV DBRDMT 3+ 11/12/2024 12:48 PM EDT Labral tear of long head of right biceps tendon, sequela Traumatic incomplete tear of right rotator cuff, sequela Special Needs 05/19 W/C approval in chart ok to schedule KP3/11 LM to schedule KP [place] SHLDR ARTHROSCOP,PART ACROMIOPLAS 11/12/2024 12:48 PM EDT Labral tear of long head of right biceps tendon, sequela Traumatic incomplete tear of right rotator cuff, sequela Special Needs 05/19 W/C approval in chart ok to schedule KP3/11 LM to schedule KP [place] ARTHROSCOPY SHOULDER SURGICAL BICEPS TENODESIS 11/12/2024 12:48 PM EDT Labral tear of long head of right biceps tendon, sequela Traumatic incomplete tear of right rotator cuff, sequela Special Needs 05/19 W/C approval in chart ok to schedule KP3/11 LM to schedule KP [place] SHLDR ARTHROSCOP,SURG,W/RO TAT CUFF REPR 11/12/2024 12:48 PM EDT Labral tear of long head of right biceps tendon, sequela Traumatic incomplete tear of right rotator cuff, sequela Special Needs 05/19 W/C approval in chart ok to schedule KP3/11 LM to schedule KP ANES BLOOD PATCH PERFORMABLE Routine 11/12/2024 12:25 PM EDT [facility] ANESTHESIA PERIPHERAL BLOCK PLACEHOLDER Routine 11/12/2024 12:25 PM EDT URINE HCG STAT 11/12/2024 10:[address] ABDOMEN/PELVIS (KIDNEY STONE) WITHOUT CONTRAST Routine 10/08/2024 5:11 PM EDT ECG 12-LEAD STAT 10/08/2024 4:39 PM EDT LIPASE STAT 10/08/2024 1:04 PM EDT LFTS (HEPATIC PANEL) STAT 10/08/2024 1:04 PM EDT HCG, SERUM QUALITATIVE STAT 10/08/2024 1:04 PM EDT BASIC METABOLIC PANEL STAT 10/08/2024 1:04 PM EDT CBC AND DIFFERENTIAL STAT 10/08/2024 1:04 PM EDT ECG 12-LEAD Routine 09/30/2024 10:07 AM EDT Labral tear of long head of right biceps tendon, sequela Traumatic incomplete tear of right rotator cuff, sequela from Last 3 Months Results * ANES ETT DOUBLE LUMEN - AIRWAY LDA (11/12/2024 2:40 PM EDT) Narrative Dennise Rodriguez CRNA - 11/12/2024 2:40 PM EDT Dennise Rodriguez CRNA 11/12/2024 2:41 PM Airway Placement Procedure Note: Procedure performed by: fellow/resident/PAGE MAKEUP SYSTEM OPERATOR Anesthesiologist: May Camarillo MD Fellow/Resident/PAGE MAKEUP SYSTEM OPERATOR: Dennise Rodriguez CRNA Airway procedure initiated at:11/12/2024 2:40 PM and ended at. Personal Protective Equipment: Mask: surgical mask Eye Protection: eye shield Gloves: double gloves Gown: no gown Mask Ventilation: Quality: not attempted Airway Placement: Technique: LMA Rapid sequence induction: no LMA Insertion: LMA size: 3 LMA placement attempts: 1. Outcomes: Evidence of dental injury? no Complications observed? no us May Camarillo MD [place] ANESTHESIA Final Resu lt * [facility] ANESTHESIA PERIPHERAL BLOCK PLACEHOLDER, ANES BLOOD PATCH PERFORMABLE (11/12/2024 12:25 PM EDT) Narrative Dennise Rodriguez CRNA - 11/12/2024 12:25 PM EDT Dennise Rodriguez CRNA 11/12/2024 12:47 PM Peripheral Block Placement Procedure Note: Start Time: 11/12/2024 12:25 PM Stop Time:11/12/2024 12:35 PM Reason for block: surgeon request and post op pain managment Block performed by: fellow/resident/PAGE MAKEUP SYSTEM OPERATOR Anesthesiologist: May Camarillo MD Fellow/Resident/PAGE MAKEUP SYSTEM OPERATOR: Dennise Rodriguez CRNA [place] Protocol Performed: consent obtained, patient identified with [...] 15 ml interscalene 5 ml intercostobrachial nerve us Dennise Rodriguez CRNA [place] ANESTHESIA F inal Result * HCG, urine (11/12/2024 10:19 AM EDT) URINE TEST Negative Negative [facility] Urine (Urine) 11/12/2024 10: 19 AM EDT 11/12/2024 10:22 AM EDT us Jalen Sweeney DO URINE ORDERABLES Final Resu lt [address] [address] * CT ABDOMEN/PELVIS (KIDNEY STONE) WITHOUT CONTRAST (10/08/2024 5:11 PM EDT) Anatomical Region Laterality Modality Abdomen, Pelvis Computed Tomogra phy 10/08/2024 6:10 PM EDT Impressions 10/08/2024 6:14 PM EDT No acute abnormality in the abdomen or pelvis. Bilateral nonobstructive renal calculi Narrative 10/08/2024 6:[address] ABDOMEN/PELVIS (KIDNEY STONE) WITHOUT CONTRAST Referring clinician's provided indication for this examination in Epic: * Flank pain, kidney stone suspected TECHNIQUE: Multidetector-row CT of the abdomen and pelvis was performed after administration of intravenous contrast using tailored dose modulation techniques. Images were reconstructed in the axial, coronal, and sagittal planes. COMPARISON: August 09, 2024 FINDINGS: Lower Chest: No consolidation or pleural effusions. Liver: No focal lesions. Biliary: Noninflamed gallbladder. No biliary ductal dilation. Spleen: No splenomegaly or focal lesions. Pancreas: No peripancreatic fat stranding, masses or ductal dilation. Adrenal Glands: No nodules. Kidneys/Ureters: There are bilateral nonobstructive renal calculi stones on the right measuring up to 8 mm and on the left up to 7 mm. No hydronephrosis. Bowel: No dilation, bowel wall thickening or adjacent fat stranding. Normal appendix. Peritoneum/Retroperitoneum: No pneumoperitoneum or free fluid. Lymph Nodes: No lymphadenopathy. Pelvic Organs/Bladder: No significant abnormality. No bladder wall thickening or inflammation. Vessels: No abdominal aortic aneurysm. Bones/Soft Tissues: No acute or suspicious osseous abnormality. Procedure Note Marissa Medeiros MD - 10/08/2024 CT ABDOMEN/PELVIS (KIDNEY STONE) WITHOUT CONTRAST Referring clinician's provided indication for this examination in [facility]: *Flank pain, kidney stone suspected TECHNIQUE: Multidetector-row CT of the abdomen and pelvis was performedafter administration of intravenous contrast using tailored dosemodulation techniques. Images were reconstructed in the axial, coronal,and sagittal planes. COMPARISON: August 09, 2024 FINDINGS: Lower Chest: No consolidation or pleural effusions. Liver: No focal lesions. Biliary: Noninflamed gallbladder. No biliary ductal dilation. Spleen: No splenomegaly or focal lesions. Pancreas: No peripancreatic fat stranding, masses or ductal dilation. Adrenal Glands: No nodules. Kidneys/Ureters: There are bilateral nonobstructive renal calculi stoneson the right measuring up to 8 mm and on the left up to 7 mm. Nohydronephrosis. Bowel: No dilation, bowel wall thickening or adjacent fat stranding.Normal appendix. Peritoneum/Retroperitoneum: No pneumoperitoneum or free fluid. Lymph Nodes: No lymphadenopathy. Pelvic Organs/Bladder: No significant abnormality. No bladder wallthickening or inflammation. Vessels: No abdominal aortic aneurysm. Bones/Soft Tissues: No acute or suspicious osseous abnormality. IMPRESSION: No acute abnormality in the abdomen or pelvis. Bilateral nonobstructive renal calculi Harika Wright PA-C IMG CT ABD/PELVIS Final Resu lt * ECG 12-LEAD (10/08/2024 4:39 PM EDT) Only the most recent of2 resultswithin the time period is included. Ventricular Rate EKG/MIN 112 BPM [facility] Atrial Rate 112 BPM [facility] [place] Interval 124 ms [facility] QRS Duration 76 ms [facility] QT Interval 326 ms [facility] QTC Interval 444 ms [facility] P State Line 58 degrees [facility] R [place] 44 degrees [facility] T [place] 31 degrees [facility] 10/08/2024 4:39 PM EDT 10/09/2024 11:42 AM EDT Narrative [facility] - 10/09/2024 11:42 AM EDT Sinus tachycardia Otherwise normal ECG When compared with ECG of 30-Sep-2024 10:07, No significant change was found Confirmed by Dorian DAWN ([id number]) on 10/09/2024 11:42:01 AM Harika Wright PA-C ECG ORDERABLES Final Result [facility] * HCG, serum qualitative (10/08/2024 1:04 PM EDT) Pathologist [facility] HCG, QUALITATIVE Negative Negative IU/L [facility] Blood 10/08/2024 1:04 PM EDT 10/08/2024 1:16 PM EDT Kyle Pickens MD LAB BLOOD ORDERABLES Final Result [address] [address] * LFTs (hepatic panel) (10/08/2024 1:04 PM EDT) [facility] ALKALINE PHOSPHATASE 58 39 - 117 U/L [facility] TOTAL BILIRUBIN 0.6 0.0 - 1.2 mg/dL [facility] DIRECT BILIRUBIN 0.2 0.0 - 0.2 mg/dL [facility] Bilirubin (Indirect) 0.4 0 - 1.5 mg/dL [facility] AST 16 0 - 37 U/L [facility] ALT 13 0 - 40 U/L [facility] TOTAL PROTEIN 7.5 6.5 - 8.0 g/dL [facility] ALBUMIN 4.3 3.9 - 4.8 g/dL [facility] GLOBULIN 3.2 1 - 4.8 g/dL [facility] A/G Ratio 1.34 1.00 - 4.80 RATIO [facility] Blood 10/08/2024 1:04 PM EDT 10/08/2024 1:16 PM EDT us Kyle Pickens MD LAB BLOOD ORDERABLES Final Result [address] [address] * (ABNORMAL) CBC and differential (10/08/2024 1:04 PM EDT) Pathologist [facility] WBC 11.97(H) 4.00 - 11.00 K/uL [facility] RBC 4.42 4.00 - 5.20 M/uL [facility] HGB 13.1 12.0 - 16.0 g/dL [facility] HCT 38.7 36.0 - 46.0 % [facility] PLT 338 150 - 450 K/uL [facility] MCV 87.6 80.0 - 100.0 fL [facility] MCH 29.6 27.0 - 31.0 pg [facility] MCHC 33.9 32.0 - 36.0 g/dL [facility] RDW 11.9 11.5 - 14.5 % [facility] MPV 11.1 8.4 - 12.0 fL [facility] NRBC 0.00 0.00 /100 WBCs [facility] ABSOLUTE NRBC 0.00 0.00 K/uL [facility] DIFF METHOD Auto [facility] NEUTS 79.3(H) 48.0 - 76.0 % [facility] LYMPHS 14.5(L) 18.0 - 41.0 % [facility] MONOS 5.5 4.0 - 11.0 % [facility] EOS 0.3 0.0 - 5.0 % [facility] BASOS 0.1 0.0 - 1.5 % [facility] Granulocytes, immature (%) 0.3 0.0 - 0.9 % [facility] ABSOLUTE NEUTS 9.49(H) 1.92 - 7.60 K/uL [facility] ABSOLUTE LYMPHS 1.74 0.72 - 4.10 K/uL [facility] ABSOLUTE MONOS 0.66 0.16 - 1.10 K/uL [facility] ABSOLUTE EOS 0.04 0.00 - 0.50 K/uL [facility] ABSOLUTE BASOS 0.01 0.00 - 0.15 K/uL [facility] Granulocytes, immature 0.03 0.00 - 0.09 K/uL [facility] Blood 10/08/2024 1:04 PM EDT 10/08/2024 1:16 PM EDT us Kyle Pickens MD LAB BLOOD ORDERABLES Final Result [facility] [address] [place] [address] * Lipase (10/08/2024 1:04 PM EDT) LIPASE 16 16 - 63 U/L [facility] Blood 10/08/2024 1:04 PM EDT 10/08/2024 1:16 PM EDT Kyle Pickens MD LAB BLOOD ORDERABLES Final Result [address] [address] * (ABNORMAL) Basic metabolic panel (10/08/2024 1:04 PM EDT) SODIUM 140 133 - 146 mmol/L [facility] CHLORIDE 103 96 - 108 mmol/L [facility] POTASSIUM 4.1 3.3 - 5.1 mmol/L [facility] CO2 24 21 - 35 mmol/L [facility] BUN 11 6 - 19 mg/dL [facility] CREATININE 0.60 0.5 - 1.5 mg/dL [facility] GLUCOSE 101(H) 70 - 99 mg/dL [facility] CALCIUM 9.9 8.4 - 10.3 mg/dL [facility] EGFR 118 >59 mL/min/1.7 3m2 [facility] Comment:Estimated glomerular filtration rate calculated using the CKD-EPI refit equation. ANION GAP 17 10 - 20 mmol/L [facility] Blood 10/08/2024 1:04 PM EDT 10/08/2024 1:16 PM EDT Kyle Pickens MD LAB BLOOD ORDERABLES Final Result [address] [address] from Last 3 Months Insurance [facility] [address] [facility] [place] [address] [facility] [place] [address] [facility] [place] [address] [facility] [place] [address] [facility] [place] [address] INSURANCE Care Teams Director Systems Relationship Specialty Start Date End Date Pcp, Not Required [address] [place] [address] PCP - General 11/09/15 Additional Source Comments The information contained in this document represents components of the legal health record. It is not the complete legal health record.[facility]
--- OUTSIDE RECORDS SUMMARY | 2024-11-13 11:13 | XMS_ITS | Encounter Summary ---
Author Organization [facility] Address [address] [address] Phone Care Team Providers Care Supervisor Dog License Officer Name Role Phone Pcp, Not Required Primary Care Provider Unavaila ble Encounter Details Date Type Department Care Team (Late st Contact Info) Description 09/17/2023 Procedure Pass [facility], [address] [place] [address] Social History Tobacco Use Types Packs/Day Years Used Date Smoking Tobacco: Never Alcohol Use Standard Drinks/Week Comments No 0 (1 standard drink = 0.6 oz pur e alcohol) Education Answer Date Recorded Are you interested in more education? Not on daysi e 07/06/2022 Are you concerned about learning? Not on file 07/06/2022 No 07/06/2022 No 07/06/2022 Digital Access Answer Date Recorded No 08/06/2022 No 08/06/2022 Reliable internet access at home? Not on file 08/06/2022 Device with a working camera? Not on file Comments Unknown Sex and Gender Information Value Date Recorded Sex Assigned at Female 09/14/2023 7:34 PM EDT Legal Sex Female 7:09 PM EDT Gender Identity Female 09/14/2023 7:34 PM EDT Sexual Orientation Straight 09/14/2023 7: 34 PM EDT documented as of this encounter Plan of Treatment Upcoming Encounters Date Type Department Care Team (Late st Contact Info) Description 11/26/2024 8:45 AM EDT Office Visit [facility] [address] [place] [address] Nikita Mireles PA-C [address] [place] [address] [place] [address] [email or web address] Kuldeep Dominguez, PT 8 [place] [address] 12/02/2024 9:40 AM EDT Office Visit [facility] [address] [place] [address] Nikita Mireles PA-C [address] [place] [address] [place] [address] 12/02/2024 11:00 AM EDT Office Visit [address] [place] [address] Nikita Mireles PA-C [address] [place] [address] [place] [address] [email or web address] Kuldeep Dominguez, PT 8 [place] [address] [email or web address] 12/07/2024 11:00 AM EDT Office Visit [facility] [address] [place] [address] Nikita Mireles PA-C [address] [place] [address] [place] [address] [email or web address] Kuldeep Dominguez, PT 8 [place] [address] 12/09/2024 10:15 AM EDT Office Visit [facility] [address] [place] [address] Nikita Mireles PA-C [address] [place] [address] [place] [address] Kuldeep Dominguez, PT 8 [place] [address] [email or web address] 12/16/2024 10:00 AM EDT Office Visit [facility] [address] [place] [address] Nikita Mireles PA-C [address] [place] [address] Karyna Aguirre, PT 8 [place] [address] [email or web address] 12/18/2024 11:30 AM EDT Office Visit [address] [place] [address] Nikita Mireles PA-C [address] [place] [address] [place] [address] Karyna Aguirre, PT 8 [place] [address] [email or web address] 12/23/2024 10:00 AM EDT Office Visit [address] [place] [address] Nikita Mireles PA-C [address] [place] [address] [place] [address] Karyna Aguirre, PT 8 [place] [address] [email or web address] 12/28/2024 10:00 AM EDT Office Visit [address] [place] [address] Nikita Mireles PA-C [address] [place] [address] [place] [address] [email or web address] Karyna Aguirre, PT 8 [place] [address] 12/30/2024 10:00 AM EDT Office Visit [facility] [address] [place] [address] Nikita Mireles PA-C [address] [place] [address] [place] [address] Karyna Aguirre, PT 8 [place] [address] 12/30/2024 11:15 AM EDT Office Visit [facility] [address] [place] [address] [id number] Jalen Sweeney DO [address] [place] [address] Orthopedics & Sports Medicine, [place] [address] 01/04/2025 10:00 AM EDT Office Visit [facility] 8 [place] [address] Nikita Mireles PA-C [address] [place] [address] [place] [address] Karyna Aguirre, PT 8 [place] [address] 01/06/2025 10:00 AM EDT Office Visit [address] [place] [address] Nikita Mireles PA-C [address] [place] [address] [place] [address] Karyna Aguirre, PT 8 [place] [address] [email or web address] 01/11/2025 10:00 AM EST Office Visit [facility] [address] [place] [address] Nikita Mireles PA-C [address] [place] [address] [place] [address] [email or web address] Karyna Aguirre, PT 8 [place] [address] [email or web address] documented as of this encounter Visit Diagnoses Not on filedocumented in this encounter Additional Health Concerns Infection Onset Date Last Indicated Resolved Time CoV-Risk 06/18/2024 06/18/2024 06/29/2024 1:23 AM EDT documented as of this encounter Care Teams Supervisor Dog License Officer Relationship Specialty Start Date End Date Pcp, Not Required [address] [place] [address] PCP - General 11/09/15 documented as of this encounter Additional Source Comments The information contained in this document represents components of the legal health record. It is not the complete legal health record.[facility]
--- OUTSIDE RECORDS SUMMARY | 2024-11-13 11:13 | XMS_ITS | Encounter Summary ---
Author Organization [facility] Address [address] [employer] [facility] [address] [place] [address] Phone Care Team Providers Care Control Technician Name Role Phone Pcp, Not Required Primary Care Provider Unavaila ble Encounter Details Date Type Department Care Team (Late st Contact Info) Description 11/22/2023 Procedure Pass [facility], Ct Scan - [address] [address] Social History Tobacco Use Types Packs/Day Years [...] with a working camera? Not on file Intimate Partner Violence Answer Date R ecorded Are you denied basic needs s uch as food, clothing, or medical care? No 11/22/2023 In the past 12 months have y ou been in a relationship with a person who hurts, threatens, or tries to control you? No 11/22/2023 Are you denied basic needs s uch as food, clothing, or medical care? No 11/22/2023 In the past 12 months have y ou been in a relationship with a person who hurts, threatens, or tries to control you? No 11/22/2023 Comments No Sex and Gender Information Value Date Recorded Sex Assigned at Female 09/14/2023 7:34 PM EDT Legal Sex Female 7:09 PM EDT Gender Identity Female 09/14/2023 7:34 PM EDT Sexual Orientation Straight 09/14/2023 7: 34 PM EDT documented as of this encounter Functional Status * Calculated C-SSRS Risk Score (Lifetime/Recent) Answer Date of Assessment Author No Risk Indicated 11/22/2023 10:32 PM EDT Franchesca Parikh RN * [place] Suicide Severity Rating Scale (Screener/Recent Self-Report) Question Answer Date of Assessment Author 1. Wish to be (Past 1 Month) No 11/22/2023 10:32 PM EDT Jillian Ordonez RN 2. Non-Specific Active Suicidal Thoughts (Past 1 Month) No 11/22/2023 10:32 PM EDT Jillian Ordonez RN 6. Suicidal Behavior (Lifetime) No 11/22/2023 10:32 PM EDT Jillian Ordonez RN documented as of this encounter Plan of Treatment Upcoming Encounters Date Type Department Care Team (Late st Contact Info) Description 11/26/2024 8:45 AM EDT Office Visit [facility] [address] [place] [address] [place] [address] Nikita Mireles PA-C [address] [place] [address] [place] [address] Kuldeep Dominguez, PT 8 [place] [address] 12/02/2024 9:40 AM EDT Office Visit [facility] Orthopedics & Sports Medicine [address] [place] [address] Nikita Mireles PA-C [address] [place] [address] [place] [address] 12/02/2024 11:00 AM EDT Office Visit [address] [place] [address] Nikita Mireles PA-C [address] [place] [address] [place] [address] Kuldeep Dominguez, PT 8 [place] [address] 12/07/2024 11:00 AM EDT Office Visit [address] [place] [address] Nikita Mireles PA-C [address] [place] [address] [place] [address] Kuldeep Dominguez, PT 8 [place] [address] 12/09/2024 10:15 AM EDT Office Visit [address] [place] [address] Nikita Mireles PA-C [address] [place] [address] [place] [address] Kuldeep Dominguez, PT 8 [place] [address] 12/16/2024 10:00 AM EDT Office Visit [address] [place] [address] Nikita Mireles PA-C [address] [place] [address] [place] [address] Karyna Aguirre, PT 8 [place] [address] 12/18/2024 11:30 AM EDT Office Visit [address] [place] [address] Nikita Mireles PA-C [address] [place] [address] [place] [address] Karyna Aguirre, PT 8 [place] [address] 12/23/2024 10:00 AM EDT Office Visit [facility] [address] [place] [address] Nikita Mireles PA-C [address] [place] [address] [place] [address] Karyna Aguirre, PT 8 [place] [address] 12/28/2024 10:00 AM EDT Office Visit [facility] [address] [place] [address] Nikita Mireles PA-C [address] [place] [address] [place] [address] Karyna Aguirre, PT 8 [place] [address] 12/30/2024 10:00 AM EDT Office Visit [facility] [address] [place] [address] Nikita Mireles PA-C [address] [place] [address] [place] [address] Karyna Aguirre, PT 8 [place] [address] 12/30/2024 11:15 AM EDT Office Visit [facility] Orthopedics & Sports Medicine [address] [place] [address] Jalen Sweeney DO [address] [place] [address] Orthopedics & Sports Medicine, [place] [address] 01/04/2025 10:00 AM EDT Office Visit [address] [place] [address] Nikita Mireles PA-C [address] [place] [address] [place] [address] Karyna Aguirre, PT 8 [place] [address] 01/06/2025 10:00 AM EDT Office Visit [address] [place] [address] Nikita Mireles PA-C [address] [place] [address] [place] [address] Karyna Aguirre, PT 8 [place] [address] 01/11/2025 10:00 AM EST Office Visit [address] [place] [address] Nikita Mireles PA-C [address] [place] [address] [place] [address] Karyna Aguirre, PT 8 [place] [address] documented as of this encounter Visit Diagnoses Not on filedocumented in this encounter Additional Health Concerns Infection Onset Date Last Indicated Resolved Time CoV-Risk 06/18/2024 06/18/2024 06/29/2024 1:23 AM EDT documented as of this encounter Care Teams Control Technician Relationship Specialty Start Date End Date Pcp, Not Required [address] [place] [address] PCP - General 11/09/15 documented as of this encounter Additional Source Comments The information contained in this document represents components of the legal health record. It is not the complete legal health record.[facility]
--- OUTSIDE RECORDS SUMMARY | 2024-11-13 11:13 | XMS_ITS | Encounter Summary ---
Author Organization [facility] Address [address] [employer] [facility] [address] [place] [address] Phone Care Team Providers Care Knowledge Manager Name Role Phone Pcp, Not Required Primary Care Provider Unavaila ble Reason for Visit * Reason Onset Date Comments Pain control 11/13/2024 Encounter Details Date Type Department Care Team ([facility] st Contact Info) Description 11/13/2024 Telephone [facility] Orth[facility]ics & Sports Medicine 4 [place] [address] Brandee Vang, RN 4 [place], [place] [phone] [email or web address] Pain control Social History Tobacco Use Types Packs/Day Years [...] as of this encounter Progress Notes * Brandee Vang, YOLANDA - 11/13/2024 9:22 AM EDT Pt had Right RCR 11/12/[address] Sweeney. Pt states that she started taking the tylenol last nightaround 11pm, and around 1am she started experiencing excruciating pain. She took 1 oxycodone at that time, taking a second one an hour later when it did not help. Pt states that she has since been taking two oxycodone tablets every 4 hours and pain is still not controlled. Advised pt that the firstfew days after shoulder surgery can be difficult for recovery. Advised to continue taking the pain medication as prescribed and to continue using ice. Pt states that she should not be in this amount of pain and was tearful throughout the conversation. Pt states she is going to go to the ER as she felt that she was in too much pain and did not feel like she was being given adequate pain control. documented in this encounter Plan of Treatment Upcoming Encounters Date Type Department Care Team (Late st Contact Info) Description 11/26/2024 8:45 AM EDT Office Visit [facility] [address] [place] [address] Nikita Mireles PA-C [address] [place] [address] [place] [address] [email or web address] Kuldeep Dominguez, PT 8 [place] [address] [email or web address] 12/02/2024 9:40 AM EDT Office Visit [facility] Orthopedics & Sports Medicine [address] [place] [address] Nikita Mireles PA-C [address] [place] [address] [place] [address] [email or web address] 12/02/2024 11:00 AM EDT Office Visit [facility] [address] [place] [address] Nikita Mireles PA-C [address] [place] [address] [place] [address] [email or web address] Kuldeep Dominguez, PT 8 [place] [address] [email or web address] 12/07/2024 11:00 AM EDT Office Visit [facility] [address] [place] [address] Nikita Mireles PA-C [address] [place] [address] [place] [address] Kuldeep Dominguez, PT 8 [place] [address] 12/09/2024 10:15 AM EDT Office Visit [facility] [address] [place] [address] Nikita Mireles PA-C [address] [place] [address] [place] [address] Kuldeep Dominguez, PT 8 [place] [address] 12/16/2024 10:00 AM EDT Office Visit [address] [place] [address] Nikita Mireles PA-C [address] [place] [address] [place] [address] Karyna Aguirre, PT 8 [place] [address] 12/18/2024 11:30 AM EDT Office Visit [facility] [address] [place] [address] Nikita Mireles PA-C [address] [place] [address] [place] [address] Karyna Aguirre, PT 8 [place] [address] 12/23/2024 10:00 AM EDT Office Visit [facility] [address] [place] [address] Nikita Mireles PA-C [address] [place] [address] [place] [address] Karyna Aguirre, PT 8 [place] [address] 12/28/2024 10:00 AM EDT Office Visit [facility] [address] [place] [address] Nikita Mireles PA-C [address] [place] [address] [place] [address] Karyna Aguirre, PT 8 [place] [address] 12/30/2024 10:00 AM EDT Office Visit [address] [place] [address] Nikita Mireles PA-C [address] [place] [address] [place] [address] Karyna Aguirre, PT 8 [place] [address] 12/30/2024 11:15 AM EDT Office Visit [facility] Orthopedics & Sports Medicine [address] [place] [address] Jalen Sweeney DO [address] [place] [address] Orthoped[facility] Sports [facility] [place] [address] 01/04/2025 10:00 AM EDT Office Visit [address] [place] [address] Nikita Mireles PA-C [address] [place] [address] [place] [address] [email or web address] Karyna Aguirre, PT 8 [place] [address] [email or web address] 01/06/2025 10:00 AM EDT Office Visit [address] [place] [address] Nikita Mireles PA-C [address] [place] [address] [place] [address] [email or web address] Karyna Aguirre, PT 8 [place] [address] [email or web address] 01/11/2025 10:00 AM EST Office Visit [address] [place] [address] Nikita Mireles PA-C [address] [place] [address] [place] [address] [email or web address] Karyna Aguirre, PT 8 [place] [address] [email or web address] documented as of this encounter Visit Diagnoses Not on filedocumented in this encounter Care Teams Knowledge Manager Relationship Specialty Start Date End Date Pcp, Not Required [address] [place] [address] PCP - General 11/09/15 documented as of this encounter Additional Source Comments The information contained in this document represents components of the legal health record. It is not the complete legal health record.[facility]
--- OUTSIDE RECORDS SUMMARY | 2024-11-13 11:13 | XMS_ITS | Encounter Summary ---
Author Organization [facility] Address [address] [employer] [facility] [address] [place] [address] Phone Care Team Providers Care Calender Machine Operator Helper Name Role Phone Pcp, Not Required Primary Care Provider Unavaila ble Encounter Details Date Type Department Care Team (Late st Contact Info) Description 02/22/2024 Procedure Pass [facility], Ct Scan - [address] [address] Social History Tobacco Use Types Packs/Day Years [...] as food, clothing, or medical care? No 02/22/2024 In the past 12 months have y ou been in a relationship with a person who hurts, threatens, or tries to control you? No 02/22/2024 Are you denied basic needs s uch as food, clothing, or medical care? No 02/22/2024 In the past 12 months have y ou been in a relationship with a person who hurts, threatens, or tries to control you? No 02/22/2024 Comments No Sex and Gender Information Value Date Recorded Sex Assigned at Female 09/14/2023 7:34 PM EDT Legal Sex Female 7:09 PM EDT Gender Identity Female 09/14/2023 7:34 PM EDT Sexual Orientation Straight 09/14/2023 7: 34 PM EDT documented as of this encounter Functional Status * Calculated C-SSRS Risk Score (Lifetime/Recent) Answer Date of Assessment Author No Risk Indicated 02/22/2024 1:48 AM Teresa Hernandez RN * [place] Suicide Severity Rating Scale (Screener/Recent Self-Report) Question Answer Date of Assessment Author 1. Wish to be (Past 1 Month) No 02/22/2024 1:48 AM Teresa Bender RN 2. Non-Specific Active Suicidal Thoughts (Past 1 Month) No 02/22/2024 1:48 AM Teresa Bender RN 6. Suicidal Behavior (Lifetime) No 02/22/2024 1:48 AM Teresa Bender RN documented as of this encounter Plan of Treatment Upcoming Encounters Date Type Department Care Team (Late st Contact Info) Description 11/26/2024 8:45 AM EDT Office Visit [facility] [address] [place] [address] Nikita Mireles PA-C [address] [place] [address] [place] [address] Kuldeep Dominguez, PT 8 [place] [address] 12/02/2024 9:40 AM EDT Office Visit [facility] Orthopedics & Sports Medicine [address] [place] [address] Nikita Mireles PA-C [address] [place] [address] [place] [address] 12/02/2024 11:00 AM EDT Office Visit [facility] [address] [place] [address] Nikita Mireles PA-C [address] [place] [place] [address] [place] [address] Kuldeep Dominguez, PT 8 [place] [address] 12/07/2024 11:00 AM EDT Office Visit [facility] [address] [place] [address] Nikita Mireles PA-C [address] [place] [place] [address] [place] [address] Kudleep Dominguez, PT 8 [place] [address] 12/09/2024 10:15 AM EDT Office Visit [facility] [address] [place] [address] Nikita Mireles PA-C [address] [place] [address] [place] [address] Kuldeep Dominguez, PT 8 [place] [address] 12/16/2024 10:00 AM EDT Office Visit [facility] [address] [place] [address] Nikita Mireles PA-C [address] [place] [address] [place] [address] Karyna Aguirre, PT 8 [place] [address] 12/18/2024 11:30 AM EDT Office Visit [address] [place] [address] Nikita Mireles PA-C [address] [place] [address] [place] [address] Karyna Aguirre, PT 8 [place] [address] 12/23/2024 10:00 AM EDT Office Visit [address] [place] [address] Nikita Mireles PA-C [address] [place] [place] [address] [place] [address] Karyna Aguirre, PT 8 [place] [address] 12/28/2024 10:00 AM EDT Office Visit [facility] 8 [place] [address] Nikita Mireles PA-C [address] [place] [address] [place] [address] Karyna Aguirre, PT 8 [place] [address] 12/30/2024 10:00 AM EDT Office Visit [facility] 8 [place] [address] Nikita Mireles PA-C [address] [place] [address] [place] [address] Karyna Aguirre, PT 8 [place] [address] 12/30/2024 11:15 AM EDT Office Visit [facility] Orthopedics & Sports Medicine [address] [place] [address] Jalen Sweeney DO [address] [place] [address] Orthopedics & Sports Medicine, [facility] [place] [address] 01/04/2025 10:00 AM EDT Office Visit [address] [place] [address] Nikita Mireles PA-C [address] [place] [place] [address] [place] [address] Karyna Aguirre, PT 8 [place] [address] 01/06/2025 10:00 AM EDT Office Visit [address] [place] [address] Nikita Mireles PA-C [address] [place] [place] [address] [place] [address] Karyna Aguirre, PT 8 [place] [address] 01/11/2025 10:00 AM EST Office Visit [address] [place] [address] Nikita Mireles PA-C [address] [place] [place] [address] [place] [address] Karyna Aguirre, PT 8 [place] [address] documented as of this encounter Visit Diagnoses Not on filedocumented in this encounter Additional Health Concerns Infection Onset Date Last Indicated Resolved Time CoV-Risk 06/18/2024 06/18/2024 06/29/2024 1:23 AM EDT documented as of this encounter Care Teams Calender Machine Operator Helper Relationship Specialty Start Date End Date Pcp, Not Required [address] [place] [address] PCP - General 11/09/15 documented as of this encounter Additional Source Comments The information contained in this document represents components of the legal health record. It is not the complete legal health record.[facility]
--- OUTSIDE RECORDS SUMMARY | 2024-11-13 11:14 | XMS_ITS | Encounter Summary ---
Author Organization [facility] Address [address] [facility] [address] [place] [phone] Phone Care Team Providers Care Certified Dietary Manager Name Role Phone Pcp, Not Required Primary Care Provider Unavaila ble Encounter Details Date Type Department Care Team (Late st Contact Info) Description 07/12/2024 Procedure Pass [facility], Ct Scan - [address] [address] Social History Tobacco Use Types Packs/Day Years [...] as food, clothing, or medical care? No 07/12/2024 In the past 12 months have y ou been in a relationship with a person who hurts, threatens, or tries to control you? No 07/12/2024 Are you denied basic needs s uch as food, clothing, or medical care? No 07/12/2024 In the past 12 months have y ou been in a relationship with a person who hurts, threatens, or tries to control you? No 07/12/2024 Comments No Sex and Gender Information Value Date Recorded Sex Assigned at Female 09/14/2023 7:34 PM EDT Legal Sex Female 7:09 PM EDT Gender Identity Female 09/14/2023 7:34 PM EDT Sexual Orientation Straight 09/14/2023 7: 34 PM EDT documented as of this encounter Functional Status * Calculated C-SSRS Risk Score (Lifetime/Recent) Answer Date of Assessment Author No Risk Indicated 07/12/2024 7:11 AM EDT Amor Gross RN * [place] Suicide Severity Rating Scale (Screener/Recent Self-Report) Question Answer Date of Assessment Author 1. Wish to be (Past 1 Month) No 025 7:11 AM EDT Amor Gross RN 2. Non-Specific Active Suici kori Thoughts (Past 1 Month) No 07/12/2024 7:11 AM EDT Amor Gross RN 6. Suicidal Behavior (Lifetime) No 7:11 AM EDT Amor Gross RN documented as of this encounter Plan of Treatment Upcoming Encounters Date Type Department Care Team (Late st Contact Info) Description 11/26/2024 8:45 AM EDT Office Visit [facility] [address] [place] [address] [place] [address] Nikita Mireles PA-C [address] [place] [address] [place] [address] Kuldeep Dominguez, PT [address] [place] [address] 12/02/2024 9:40 AM EDT Office Visit [facility] Orthoped[facility] & Sports Medicine [address] [place] [address] Nikita Mireles PA-C [address] [place] [address] [place] [address] 12/02/2024 11:00 AM EDT Office Visit [facility] [address] [place] [address] Nikita Mireles PA-C [address] [place] [address] [place] [address] Kuldeep Dominguez, PT 8 [place] [address] 12/07/2024 11:00 AM EDT Office Visit [facility] [address] [place] [address] Nikita Mireles PA-C [address] [place] [address] [place] [address] Kuldeep Dominguez, PT 8 [place] [address] 12/09/2024 10:15 AM EDT Office Visit [address] [place] [address] Nikita Mireles PA-C [address] [place] [address] [place] [address] Kuldeep Dominguez, PT 8 [place] [address] 12/16/2024 10:00 AM EDT Office Visit [facility] [address] [place] [address] Nikita Mireles PA-C [address] [place] [address] [place] [address] Karyna Aguirre, PT 8 [place] [address] 12/18/2024 11:30 AM EDT Office Visit [facility] [address] [place] [address] Nikita Mireles PA-C [address] [place] [address] [place] [address] Karyna Aguirre, PT 8 [place] [address] 12/23/2024 10:00 AM EDT Office Visit [address] [place] [address] Nikita Mireles PA-C [address] [place] [address] [place] [address] Karyna Aguirre, PT 8 [place] [address] 12/28/2024 10:00 AM EDT Office Visit [address] [place] [address] Nikita Mireles PA-C [address] [place] [address] [place] [address] Karyna Aguirre, PT 8 [place] [address] 12/30/2024 10:00 AM EDT Office Visit [address] [place] [address] Nikita Mireles PA-C [address] [place] [address] [place] [address] Karyna Aguirre, PT 8 [place] [address] 12/30/2024 11:15 AM EDT Office Visit [facility] Orthopedics & Sports Medicine [address] [place] [address] Jalen Sweeney DO 4 [facility] [place] [place] [address] 01/04/2025 10:00 AM EDT Office Visit [address] [place] [address] Nikita Mireles PA-C [address] [place] [address] [place] [address] Karyna Aguirre, PT 8 [place] [address] 01/06/2025 10:00 AM EDT Office Visit [address] [place] [address] Nikita Mireles PA-C [address] [place] [address] [place] [address] Karyna Aguirre, PT 8 [place] [address] 01/11/2025 10:00 AM EST Office Visit [address] [place] [address] Nikita Mireles PA-C [address] [place] [address] [place] [address] Karyna Aguirre, PT 8 [place] [address] documented as of this encounter Visit Diagnoses Not on filedocumented in this encounter Care Teams Certified Dietary Manager Relationship Specialty Start Date End Date Pcp, Not Required [address] [place] [address] PCP - General 11/09/15 documented as of this encounter Additional Source Comments The information contained in this document represents components of the legal health record. It is not the complete legal health record.[facility]
[2024-11-13 11:17] LABS: Hematocrit 35.0 % (37.0-47.0); Hemoglobin 12.0 g/dl (12.0-16.0); Imm Gran Abs Auto 0.06 X10*3/uL (0.00-0.03); Imm Gran Pct Auto 0.3 % (0.0-0.4); Lymphocytes Absolute Auto 2.7 X10*3/uL (1.2-4.9); Mean Corpuscular HGB Conc 34.3 g/dl (31.0-35.0); Mean Corpuscular Hemoglobin 29.3 pg (27.0-33.0); Mean Corpuscular Volume 85.4 fL (80.0-98.0); NRBC Abs Auto 0.000 X10*3/uL (0.0-0.012); NRBC Pct Auto 0.0 /100WBC (0.0-0.2); Platelet Count 291 X10*3/uL (160-400); Red Blood Count 4.10 X10*6/uL (4.20-5.50); White Blood Count 17.4 X10*3/uL (4.8-10.8)
--- OUTSIDE RECORDS SUMMARY | 2024-11-13 11:17 | XMS_ITS | Encounter Summary ---
Author Organization [facility] Address [address] [facility] [address] [place] [phone] Phone Care Team Providers Care Manager Retail Name Role Phone Pcp, Not Required Primary Care Provider Unavaila ble Encounter Details Date Type Department Care Team (Late st Contact Info) Description 08/08/2024 Procedure Pass [facility], Ct Scan - [address] [address] Social History Tobacco Use Types Packs/Day Years Used Date Smoking Tobacco: Never Alcohol Use Standard Drinks/Week Comments No 0 (1 standard drink = 0.6 oz pur e alcohol) Education Answer Date Recorded Are you interested in more education? Not on adysi e 07/06/2022 Are you concerned about learning? Not on file 07/06/2022 No 07/06/2022 No 07/06/2022 Digital Access Answer Date Recorded No 08/06/2022 No 08/06/2022 Reliable internet access at home? Not on file 08/06/2022 Device with a working camera? Not on file Intimate Partner Violence Answer Date R ecorded Are you denied basic needs s uch as food, clothing, or medical care? No 08/08/2024 In the past 12 months have y ou been in a relationship with a person who hurts, threatens, or tries to control you? No 08/08/2024 Are you denied basic needs s uch as food, clothing, or medical care? No 08/08/2024 In the past 12 months have y ou been in a relationship with a person who hurts, threatens, or tries to control you? No 08/08/2024 Comments No Sex and Gender Information Value Date Recorded Sex Assigned at Female 09/14/2023 7:34 PM EDT Legal Sex Female 7:09 PM EDT Gender Identity Female 09/14/2023 7:34 PM EDT Sexual Orientation Straight 09/14/2023 7: 34 PM EDT documented as of this encounter Functional Status * Calculated C-SSRS Risk Score (Lifetime/Recent) Answer Date of Assessment Author No Risk Indicated 08/08/2024 10:51 PM EDT Dallin Pretty RN * [place] Suicide Severity Rating Scale (Screener/Recent Self-Report) Question Answer Date of Assessment Author 1. Wish to be (Past 1 Month) No 025 10:51 PM EDT Dallin Pretty RN 2. Non-Specific Active Suici kori Thoughts (Past 1 Month) No 08/08/2024 10:51 PM EDT Dallin Pretty RN 6. Suicidal Behavior (Lifetime) No 10:51 PM EDT Dallin Pretty RN documented as of this encounter Plan of Treatment Upcoming Encounters Date Type Department Care Team (Late st Contact Info) Description 11/26/2024 8:45 AM EDT Office Visit [facility] [address] [place] [address] [place] [address] Nikita Mireles PA-C [address] [place] [address] [place] [address] Kuldeep Dominguez, PT 8 [place] [address] 12/02/2024 9:40 AM EDT Office Visit [facility] Orthopedics & Sports Medicine [address] [place] [address] Nikita Mireles PA-C [address] [place] [address] [place] [address] [email or web address] 12/02/2024 11:00 AM EDT Office Visit [facility] [address] [place] [address] Nikita Mireles PA-C [address] [place] [address] [place] [address] Kuldeep Dominguez, PT 8 [place] [address] 12/07/2024 11:00 AM EDT Office Visit [facility] [address] [place] [address] Nikita Mireles PA-C [address] [place] [address] [place] [address] Kuldeep Dominguez, PT 8 [place] [address] 12/09/2024 10:15 AM EDT Office Visit [address] [place] [address] Nikita Mireles PA-C [address] [place] [address] [place] [address] Kuldeep Dominguez, PT 8 [place] [address] 12/16/2024 10:00 AM EDT Office Visit [facility] [address] [place] [address] Nikita Mireles PA-C [address] [place] [address] [place] [address] Karyna Aguirre, PT 8 [place] [address] [email or web address] 12/18/2024 11:30 AM EDT Office Visit [facility] [address] [place] [address] Nikita Mireles PA-C [address] [place] [address] [place] [address] Karyna Aguirre, PT 8 [place] [address] 12/23/2024 10:00 AM EDT Office Visit [address] [place] [address] Nikita Mireles PA-C [address] [place] [address] [place] [address] Karyna Aguirre, PT 8 [place] [address] 12/28/2024 10:00 AM EDT Office Visit [address] [place] [address] Nikita Mireles PA-C [address] [place] [address] [place] [address] Karyna Aguirre, PT 8 [place] [address] 12/30/2024 10:00 AM EDT Office Visit [address] [place] [address] Nikita Mireles PA-C [address] [place] [address] [place] [address] Karyna Aguirre, PT 8 [place] [address] 12/30/2024 11:15 AM EDT Office Visit [facility]opedics & Sports Medicine [address] [place] [address] Jalen Sweeney DO 4 [facility] [place] [place] [address] [email or web address] 01/04/2025 10:00 AM EDT Office Visit [address] [place] [address] Nikita Mireles PA-C [address] [place] [address] [place] [address] Karyna Aguirre, PT 8 [place] [address] [email or web address] 01/06/2025 10:00 AM EDT Office Visit [address] [place] [address] Nikita Mireles PA-C [address] [place] [address] [place] [address] Karyna Aguirre, PT 8 [place] [address] 01/11/2025 10:00 AM EST Office Visit [address] [place] [address] Nikita Mireles PA-C [address] [place] [address] [place] [address] Karyna Aguirre, PT 8 [place] [address] [email or web address] documented as of this encounter Visit Diagnoses Not on filedocumented in this encounter Care Teams Manager Retail Relationship Specialty Start Date End Date Pcp, Not Required [address] [place] [address] PCP - General 11/09/15 documented as of this encounter Additional Source Comments The information contained in this document represents components of the legal health record. It is not the complete legal health record.[facility]
--- OUTSIDE RECORDS SUMMARY | 2024-11-13 11:17 | XMS_ITS | Encounter Summary ---
Author Organization [facility] Address [address] [place] [address] Phone Care Team Providers Care Human Relations Professor Name Role Phone Pcp, Not Required Primary Care Provider Unavaila ble Encounter Details Date Type Department Care Team (Late st Contact Info) Description 10/08/2024 Procedure Pass [facility], Ct Scan - [address] [address] Social History Tobacco Use Types Packs/Day Years [...] Risk Indicated 10/08/2024 12:28 PM EDT Ana Gonzalez, YOLANDA * [place] Suicide Severity Rating Scale (Screener/Recent Self-Report) Question Answer Date of Assessment Author 1. Wish to be (Past 1 Month) No 025 12:28 PM EDT Ana Gonzalez, RN 2. Non-Specific Active Suici kori Thoughts (Past 1 Month) No 10/08/2024 12:28 PM EDT Ana Gonzalez , RN 6. Suicidal Behavior (Lifetime) No 12:28 PM EDT Ana Gonzalez, RN documented as of this encounter Plan of Treatment Upcoming Encounters Date Type Department Care Team (Late st Contact Info) Description 11/26/2024 8:45 AM EDT Office Visit [facility] [address] [place] [address] [place] [address] Nikita Mireles PA-C [address] [place] [address] [place] [address] Kuldeep Dominguez, PT 8 [place] [address] 12/02/2024 9:40 AM EDT Office Visit [facility] Orthopedics & Sports Medicine [address] [place] [address] Nikita Mireles PA-C [address] [place] [address] [place] [address] 12/02/2024 11:00 AM EDT Office Visit [address] [place] [address] Nikita Mireles PA-C [address] [place] [address] [place] [address] Kuldeep Dominguez, PT 8 [place] [address] 12/07/2024 11:00 AM EDT Office Visit [address] [place] [address] Nikita Mireles PA-C [address] [place] [address] [place] [address] Kuldeep Dominguez, PT 8 [place] [address] 12/09/2024 10:15 AM EDT Office Visit [address] [place] [address] Nikita Mirelse PA-C [address] [place] [address] [place] [address] Kuldeep Dominguez, PT 8 [place] [address] 12/16/2024 10:00 AM EDT Office Visit [address] [place] [address] Nikita Mireles PA-C [address] [place] [address] [place] [address] Karyna Aguirre, PT 8 [place] [address] 12/18/2024 11:30 AM EDT Office Visit [address] [place] [address] Nikita Mireles PA-C [address] [place] [address] [place] [address] Karyna Aguirre, PT 8 [place] [address] 12/23/2024 10:00 AM EDT Office Visit [address] [place] [address] Nikita Mireles PA-C [address] [place] [address] [place] [address] Karyna Aguirre, PT 8 [place] [address] 12/28/2024 10:00 AM EDT Office Visit [address] [place] [address] Nikita Mireles PA-C [address] [place] [address] [place] [address] Karyna Aguirre, PT 8 [place] [address] 12/30/2024 10:00 AM EDT Office Visit [facility] [address] [place] [address] Nikita Mireles PA-C [address] [place] [address] [place] [address] Karyna Aguirre, PT 8 [place] [address] 12/30/2024 11:15 AM EDT Office Visit [facility] Orthopedics & Sports Medicine [address] [place] [address] Jalen Sweeney DO [address] [place] [address] Orthopedics & Sports Medicine, [place] [address] 01/04/2025 10:00 AM EDT Office Visit [facility] 8 [place] [address] iNkita Mireles PA-C [address] [place] [address] [place] [address] Karyna Aguirre, PT 8 [place] [address] 01/06/2025 10:00 AM EDT Office Visit [facility] [address] [place] [address] Nikita Mireles PA-C [address] [place] [address] [place] [address] Karyna Aguirre, PT 8 [place] [address] 01/11/2025 10:00 AM EST Office Visit [facility] 8 [place] [address] Nikita Mireles PA-C [address] [place] [address] [place] [address] Karyna Aguirre, PT 8 [place] [address] documented as of this encounter Visit Diagnoses Not on filedocumented in this encounter Care Teams Human Relations Professor Relationship Specialty Start Date End Date Pcp, Not Required [address] [place] [address] PCP - General 11/09/15 documented as of this encounter Additional Source Comments The information contained in this document represents components of the legal health record. It is not the complete legal health record.[facility]
[2024-11-13 11:33] LABS: Alanine Aminotransferase 15 U/L (0-31); Albumin Level 4.3 g/dL (3.5-5.0); Alkaline Phosphatase 62 U/L (39-117); Anion Gap 11 (12-20); Aspartate Amino Transferase 21 U/L (5-31); Blood Urea Nitrogen 8 mg/dL (9-16); Calcium 9.4 mg/dL (8.4-10.2); Carbon Dioxide 25 mmol/L (22-29); Chloride 106 mmol/L (96-108); Creatinine Clr Calc Pharmacy 144.1; Estimated Glomerular Filt Rate > 60; Potassium 3.6 mmol/L (3.3-5.1); Sodium 138 mmol/L (135-145); Total Protein 7.2 g/dL (6.5-8.0)
[2024-11-13] MEDS: iohexoL 350 MG/ML 100 ML INFUS..BTL IV (12:16)
--- NOTE | 2024-11-13 12:50 | PC.NURSE ---
IV fluids resumed at this time. Patient reports ongoing pain but that there is some relief from IV medications administered prior to CT scan. CT scan results pending. IV access to left AC remains patent/intact. Care ongoing by this RN & Amisha Michel LPN. Additional labs drawn and sent for analysis, results pending. Sepsis workup in progress.
--- NOTE | 2024-11-13 13:00 | MHC.EDTECH ---
pt changed into hospital gown, placed on laboratory monitor, vitals running Q15min, call harrell within reach, RN made aware
--- NOTE | 2024-11-13 13:22 | PC.NURSE ---
Patient requesting additional pain medications. Dr. Carlton sent message via [employer] at 13:16, awaiting response.
--- NOTE | 2024-11-13 13:31 | PC.NURSE ---
Medicated for 9 out of 10 pain at this time with Dilaudid 1mg, as requested. Plan for Dr. Carlton to follow up with orthopedic surgeon at [facility] (where surgery was performed) regarding this patient. Care ongoing by this RN.
== END 2024-11-13 16:12 | disposition home or self-care (01) ==
PROVIDERS: Registered Nurse Emergency; Emergency Provider Student in an Organized Health Care Education/Training Program
DX: M25.511 Pain in right shoulder (principal); Z98.890 Other specified postprocedural states
CPT/HCPCS: 36415; 73201; 80053; 83605; 85025; 85652; 86141; 87040; 96361; 96374; 96375; 96376; 99284; 99285; J0696; J1171; J2405; Q9967

== ENCOUNTER → 2024-11-13 11:38 | Outpatient (BNV) | payer OTHER, SELFPAY | PROVIDERS: Emergency Provider Student in an Organized Health Care Education/Training Program; Visit Provider Radiology Diagnostic Radiology | DX: M25.511 Pain in right shoulder (principal) | CPT/HCPCS: 73201 ==

== ENCOUNTER 2024-12-04 09:14 | Emergency (ER) | payer OTHER, SELFPAY ==
--- OUTSIDE RECORDS SUMMARY | 2014-04-13 11:28 | XMS_ITS | Continuity of Care Document ---
Author Organization [facility] Care Team Address [address] [place] [address] Phone Care Team Providers Care Enrolled Agent Name Role Phone Provider1, First Unavailable Unavailable Advance Directives Directive Yes / No Effective Date File Name No Information Encounters Encounter Description Practice Location Reason(s) For Visit Diagnoses Date Provider Providers Copied on Encounter [facility] Team, [address] [place], [address], [place] tel:[phone] [facility] No Information Provider1 First. . Family History Family Member Type Diagnosis Age At Onset No Information Payers Payer name Insurance type Covered green party ID Authoriza tion(s) No Information Social [...]
--- OUTSIDE RECORDS SUMMARY | 2024-09-07 12:34 | XMS_ITS | Continuity of Care Document ---
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 [address] [place], [place], [id number], . tel:[phone] Ind[facility]Psycho therapy 30 Minutes(16-3 7) [facility] [address] [place], [place], [id number] , [phone] [facility] Major depressive disorder, recurrent, unspecified 4 Reena Arce. [address] [place], [address], . tel:[phone] Referring Provider: Tiffanie Albarran, [address] [place] [address], [address]. tel:[phone] OFFICE/OUTPA TIENT VISIT EST PT 20-29 MINS [facility] [address] [place] [address], [id number] , [place] tel: [phone] [facility] Follow Up of Anxiety (chief complaint)MD Note (chief complaint) Body mass index (BMI) 24.0-24.9, adultGAD (generalized anxiety disorder) 4 Deion Moreno. [address] [place], [place], [id number], [place]. tel:[phone] Referring Provider: Tiffanie Albarran, [address], [place], [address]. tel:[phone] OFFICE/OUTPA TIENT VISIT EST PT 20-29 MINS [facility] [address] [place] [address], [id number] , [place] tel: [phone] letter (chief complaint)Anx iety (chief complaint) Anxiety and depression 4 [facility]. [address], [place], [address], [place]. tel:[phone] Referring Provider: Tiffanie Ablarran, [address] [place], [place] [address]e, [place], [address]. tel:[phone] OFFICE VISIT ESTAB PT 30-39 MIN [facility] [address] [place] [address], [id number] , [place] tel: [phone] [facility] Work Letter (chief complaint) Depressive disorderBila teral leg weaknessGAD (generalized anxiety disorder)Mark sea and vomiting in adultKidney stones 3 Deion Moreno. [address] [place], [place], [id number], [place]. tel:[phone] Referring Provider: Tiffanie Albarran, [address] [place], [address]. tel:[phone] OFFICE VISIT ESTAB PT 40-54 MIN [facility] [address] [place] [address], [id number] , [place] tel:[phone] Anxiety (chief complaint)Tel ephone visit (chief complaint) Kidney stonesRight leg weaknessAnxi ety and depressionDe pression, unspecifiedS creening for diabetes mellitusScre ening cholesterol levelScreeni ng for thyroid disorderOthe r [facility] (current) drug therapy 3 Pasha Adriana. [address] [place], [address], [place]. tel:[phone] Referring Provider: Tiffanie Albarran, [address] [place], [address]. tel:[phone] OFFICE/OUTPA TIENT VISIT EST PT 20-29 MINS [facility] [address] [place] [address], [id number] , [place] tel: [facility] MD Note (chief complaint) Leg weakness, bilateral 3 Deion Moreno. [address] [place], [place], [id number], [place]. tel:[phone] Referring Provider: Tiffanie Albarran, [address] [place], [address]. tel:[phone] OFFICE/OUTPA TIENT VISIT EST PT 20-29 MINS [facility] [address] [place] [address], [id number] , [place] tel: [phone] [facility] Right leg weakness (chief complaint)Tel ehealth (chief complaint) Weakness of right lower extremityRen al calculus 3 Khalif Rodriguez. [address] [place], [address], [place]. tel:[phone] Referring Provider: Tiffanie Albarran, [address] [place], [address]. tel:[phone] OFFICE/OUTPA TIENT VISIT EST PT 20-29 MINS [facility] [address] [place] [address], [id number] , [place] tel: [phone] [address] [place] [address] infertility (chief complaint)add (chief complaint) Infertility management 1 Nic Maya. [address] [place], [address], [place]. tel:[phone] Referring Provider: Tiffanie Albarran, [address] [place], [address]. tel:[phone] [facility] [address] [place] [address], [id number] , [place] tel: [address] [place] [address] No Information 0 Ulises you RN. [address] [place], [address], [place]. OFFICE/OUTPA TIENT VISIT, [facility] [address] [place] [address], [id number] , [place] tel: [address] [place] [address] Telehealth visit (chief complaint) Abdominal pain with vomitingVomi ting, unspecified 0 Jarod Mendoza. [address] [place], [address], [place]. tel:[phone] Referring Provider: Reji Olivera, [address] [place], [address]. tel:[phone] OFFICE/OUTPA TIENT VISIT, [facility] [address] [place] [address], [id number] , [place] tel: [facility] Vomiting (chief complaint) Body mass index (BMI) 22.0-22.9, adultGastroe nteritis 9 Jenn Rm. [address] [place], [address], [place]. tel:[phone] Referring Provider: Sujey Barajas, [address] [place], [address]. tel:[phone] OFFICE/OUTPA TIENT VISIT, [facility] [address] [place] [address], [id number] , [place] tel: [facility] Follow Up of ED/Abdominal pain (chief complaint) Body mass index (BMI) 19.9 or less, adultCalculu s of kidney 9 Leisa Frias. [address] [place], [place], [id number], [place]. tel: [phone] Referring Provider: Rodriguez De La Fuente, [address] [facility], [place], [address]. tel: [phone] [facility] [address] [place] [address], [id number] , [place] tel: [phone] [facility] examination 9 Anette Weldon. [address], [place], [place], [id number], [place]. tel: [phone] Referring Provider: Fatemeh Cheema, [address], [place], [address]. tel: [phone] [facility] [address] [place] [address], [id number] , [place] tel: [phone] [facility] examination 9 Anette Weldon. [address], [place], [place], [id number], [place]. tel: [phone] Referring Provider: Fatemeh Cheema, [address], [place], [address]. tel: [phone] [facility] [address] [place] [address], [id number] , [place] tel: [phone] [facility] examination 8 Anette Weldon. [address], [place], [place], [id number], [place]. tel: [phone] Referring Provider: Fatemeh Cheema, [address], [place], [address]. tel: [phone] [facility] [address] [place], [place], [id number] , [place] tel: [phone] [facility] examination Joshua Delaney. [address] [facility], [place], [address], [place]. tel:[phone] Referring Provider: Rhett Lewis, [address] [place], [address]. tel:[phone] [facility] [address] [place] [address], [id number] , [place] tel: [phone] [facility] examination 8 Anette Weldon. [address] [place], [place], [id number], [place]. tel:[phone] OFFICE/OUTPA TIENT VISIT, EST [facility] [address] [place] [address], [id number] , [place] tel:[phone] [facility] trying to conceive (chief complaint)Dys pareunia (chief complaint) Dyspareunia in female 8 Luigi Stuart. [address] [place], [address], [place]. tel:[phone] [facility], [address] [place] [address], [id number] , [place] tel: [phone] [facility] flu (chief complaint) Encounter for oth general cnsl and advice on contraceptio nEncounter for reversal of previous sterilizatio n 8 No Information OFFICE/OUTPA TIENT VISIT, EST [facility] [address] [place] [address], [id number] , [place] tel:[phone] [facility] Post-surgical Pain (chief complaint) Acute abdomen 8 Cardona Gina. [address] [place], [address], [place]. tel:[phone] Referring Provider: Kiko Hicks, [address] [place], [address]. tel: [phone] OFFICE VISIT ESTAB PT 25 MIN [facility] [address] [place] [address], [id number] , [place] tel: [phone] [facility] back pain (chief complaint) Other acute back pain 8 Konrad Katina. [address] [place] [address], [id number], [place]. tel:[phone] [facility] [address] [place] [address], [id number] , tel: [phone] [facility] examination 7 Odilon Castaneda. [address] [place] [address], [id number], [place]. tel:[phone] Referring Provider: Leonel Donald, [address] [place] [address], [address]. tel:[phone] [facility] [address] [place] [address], [id number] , tel: [phone] [facility] examination 7 Yfn Hanson. [address] [place] [address], [address], [place]. tel: [phone] Referring Provider: Margie Coulter, [address] [place] [address], [address]. tel: [phone] OFFICE VISIT ESTAB PT 25 MIN [facility] [address] [place] [address], [id number] , tel: [phone] [facility] Follow Up of Depression (chief complaint) Calculus of kidney with calculus of ureterMajor depressive disorder, single episode, unspecified Apr-0 4-201 7 Hofstetter Katherene. [address] [place] [address], [id number], [place]. tel:[phone] Referring Provider: Tayler Monte, [address] [place] [address], [address]. tel: [phone] OFFICE VISIT ESTAB PT 25 MIN [facility] [address] [place] [address], [id number] , [place] tel: [phone] [facility] Follow Up of Depression (chief complaint) Major depressive disorder, single episode, unspecified Mar-0 7-201 7 Hofstetter Katherene. [address] [place] [address], [id number], [place]. tel: [phone] Referring Provider: Tayler Monte, [address] [place] [address], [address]. tel:[phone] OFFICE VISIT ESTAB PT 25 MIN [facility] [address] [place] [address], [id number] , tel: [phone] [facility] Follow Up of Depression (chief complaint) Major depressive disorder, recurrent, unspecified 7 Oniel Lang. [address] [place] [address], [id number], [place]. tel: [phone] Referring Provider: Tayler Monte, [address] [place] [address], [address]. tel:[phone] Ind[facility]Psycho therapy 45 Minutes [facility] [address] [place] [address], [id number] , tel: [facility] Anxiety (chief complaint)Dep ression (chief complaint)Str essed (chief complaint)Sle ep disturbance (chief complaint) Major depressive disorder, recurrent, unspecifiedP ost-traumati c stress disorder, chronic 7 [place], [address], [place]. tel:[phone] Referring Provider: Tayler Monte, [address] [place] [address], [address]. tel:[phone] OFFICE/OUTPA TIENT VISIT, [facility] [address] [place] [address], [id number] , [place] tel: [phone] [facility] Follow Up of Depression (chief complaint) Depression 7 Oniel Lang. [address] [place] [address], [id number], [place]. tel: [phone] Referring Provider: Tayler Monte, [address] [place] [address], [address]. tel:[phone] OFFICE/OUTPA TIENT VISIT, [facility] [address] [place] [address], [id number] , tel: [facility] Follow Up of Depression (chief complaint) Major depressive disorder, recurrent, unspecified Dec-1 6- 6 Lavell Lester. [address] [place] [address], [id number], [place]. tel:[phone] Referring Provider: Tayler Monte, [address] [place] [address], [address]. tel:[phone] OFFICE/OUTPA TIENT VISIT, [facility] [address] [place] [address], [id number] , [place] tel: [facility] Follow Up of Depression (chief complaint) Major depressive disorder, recurrent, unspecifiedL eft flank pain Dec-0 9- 6 Lavell Lester. [address] [place] [address], [id number], [place]. tel:[phone] Referring Provider: Tayler Monte, [address] [place] [address], [address]. tel:[phone] OFFICE/OUTPA TIENT VISIT, [facility] [address] [place] [address], [id number] , tel: [facility] depression (chief complaint) Depression Dec-0 6 Khalif oRdriguez. [address] [place], [address], [place]. tel: [phone] Referring Provider: Taylre Monte, [address] [place] [address], [address]. tel:[phone] OFFICE/OUTPA TIENT VISIT, [facility] [employer] [address] [place], [place], [id number] , [place] tel: [phone] [facility] Follow Up of Depression (chief complaint) Major depressive disorder, recurrent, unspecifiedE pigastric painLeft flank pain Nov-2 3- 6 Lavell Lester. [address] [place] [address], [id number], [place]. tel:[phone] Referring Provider: Tayler Monte, [address] [place] [address], [address]. tel:[phone] OFFICE/OUTPA TIENT VISIT, [facility] [address] [place] [address], [id number] , [place] tel: [phone] [facility] Follow Up of Depression (chief complaint) Major depressive disorder, recurrent, unspecified 6 Lavell Lester. [address] [place] [address], [id number], [place]. tel:[phone] Referring Provider: Tayler Monte, [address] [place] [address], [address]. tel:[phone] [facility] [address] [place] [address], [id number] , tel:[phone] [facility] Depression (chief complaint)Sle ep disturbance (chief complaint)Harvinder etite loss (chief complaint) Major depressive disorder, recurrent, unspecified 6 [place], [address], [place]. tel: [phone] Referring Provider: Tayler Monte, [address] [place] [address], [address]. tel:[phone] OFFICE/OUTPA TIENT VISIT, [facility] [address] [place] [address], [id number] , [place] tel: [phone] [facility] Follow Up of Depression (chief complaint) Depression, unspecified depression typeLeft flank pain 6 Lavell Lester. [address] [place] [address], [id number], [place]. tel:[phone] Referring Provider: Tayler Monte, [address] [place] [address], [address]. tel:[phone] OFFICE/OUTPA TIENT VISIT, [facility] [address] [place] [address], [id number] , [place] tel: [phone] [facility] Follow Up of Depression (chief complaint)Fol low Up of gastritis (chief complaint) Depression, unspecified depression type Sep-2 3-201 6 Monte Tayler. [address] [place] [address], [id number], [place]. tel:[phone] Referring Provider: Tayler Monte, [address] [place] [address], [address]. tel:[phone] [facility] [address] [place] [address], [id number] , [place] tel: [phone] [facility] examination Sep-2 0-201 6 Donald Leonel. [address] [place] [address], [id number], [place]. tel:[phone] Referring Provider: Margie Coulter, [address] [place] [address], [address]. tel: [phone] OFFICE VISIT ESTAB PT 25 MIN [facility], [address] [place] [address], [id number] , [place] tel: [phone] [facility] Follow Up of ER (chief complaint)Dep ression (chief complaint)abd ominal pain (chief complaint) Depression, unspecified depression typeEpigastr ic pain Sep-0 9-201 6 Lavell Tayler. [address] [place] [address], [id number], [place]. tel:[phone] Referring Provider: Tayler Monte, [address] [place] [address], [address]. tel:[phone] [facility] [address] [place] [address], [id number] , [place] tel: [phone] [facility] examination Noel- 5-201 5 Donald Leonel. [address] [place] [address], [id number], [place]. tel:[phone] Referring Provider: Tayler Monte, [address] [place] [address], [address]. tel:[phone] OFFICE VISIT ESTAB PT 25 MIN [facility] [address] [place] [address], [id number] , [place] tel: [phone] [facility] abdominal pain (chief complaint) UTI (lower urinary tract infection) 5 Jacquelin Aalrcon. [address] [place], [place], [id number], [place]. tel: [phone] Referring Provider: Tayler Monte, [address] [place] [address], [address]. tel:[phone] OFFICE VISIT ESTAB PT 25 MIN [facility] [address] [place] [address], [id number] , [place] tel: [phone] [facility] Kidney stones (chief complaint) Abdominal pain, left lower quadrantCalc ulus of kidneyVomiti ng 5 Lavell Lester. [address] [place] [address], [id number], [place]. tel:[phone] Referring Provider: Tayler Monte, [address] [place] [address], [address]. tel:[phone] OFFICE VISIT ESTAB PT 25 MIN [facility] [address] [place] [address], [id number] , [place] tel: [phone] [facility] Abdominal pain (chief complaint) Abdominal Pain 5 Daryl Manzo. [address] [place], [address], [place]. tel: [phone] Referring Provider: Anais Brito, [address] [place], [address]. tel: [phone] OFFICE/OUTPA TIENT VISIT, EST [facility] [address] [place] [address], [id number] , [place] tel: [phone] [facility] finger pain (chief complaint)LLQ pain (chief complaint) Finger painLeft flank pain 4 Lavell Lester. [address] [place] [address] [place], [id number], [place]. tel:[phone] Referring Provider: Tayler Monte, [address] [place], [address]. tel:[phone] [facility] [address] [place] [address], [id number] , [place] tel: [phone] [facility] examination 4 Murtaza Darling. [address] [place] [address], [id number], [place]. tel: [phone] [facility] [address] [place] [address], [id number] , [place] tel: [phone] [facility] examination 4 Luiz Barillas. [address] [place] [address], [address], [place]. tel: [phone] [facility] [address] [place] [address], [id number] , [place] tel: [phone] [facility] Screening examination for pulmonary tuberculosis 4 Lavell Lester. [address] [place] [address], [id number], [place]. tel:[phone] OFFICE VISIT ESTAB PT 25 MIN [facility] [address] [place] [address], [id number] , [place] tel: [phone] [facility] Decreased Appetite (chief complaint) Weight gainAbnormal weight gainAsthmaCo ntraceptionA bnormal weight gainAsthmaUn specified contraceptiv e management 4 Lavell Lester. [address] [place] [address], [id number], [place]. tel:[phone] [facility] [address] [place] [address], [id number] , [place] tel: [phone] [facility] examination 4 Yfn Hanson. [address] [place] [address], [address], [place]. tel: [phone] OFFICE VISIT ESTAB PT 25 MIN [facility] [address] [place] [address], [id number] , [place] tel:[phone] [facility] vomiting (chief complaint) Abdominal Pain 4 [facility] Dorian. [address] [place], [place], [id number], [place]. tel:[phone] [facility] [address] [place], [place], [id number] , [place] tel:[phone] [facility] examination 4 [facility]. [address] [place], [address], . tel:[phone] [facility] [address] [place] [address], [id number] , [place] tel:[phone] [facility] examination 3 [facility]. [address] [place], [address], [place]. tel:[phone] OFFICE VISIT ESTAB PT 25 MIN [facility] [address] [place] [address], [id number] , [place] tel:[phone] [facility] LUQ pain (chief complaint)col d symptoms (chief complaint) Upper Respiratory Infection, Acute 3 Boy Angel. [address] [place], [address], [place]. [phone] OFFICE VISIT ESTAB PT 15 MIN [facility] [address] [place] [address], [id number] , [place] tel:[phone] [facility] stomach pain (chief complaint) H. pylori duodenitisHe licobacter pylori (H. pylori)Duode nitis (without mention of hemorrhage)H elicobacter pylori (h. pylori) infection 3 [facility] Dorian. [address] [place], [place], [id number], [place]. [phone] [facility] [address] [place], [place], [id number] , [place] tel: [facility] AsthmaMigrai neGastritis and duodenitisDe pressionH/O renal calculiH/O tubal ligation 3 Mayra Dionicio. [address] [place], [place], [id number], [place]. tel:[phone] OFFICE VISIT ESTAB PT 25 MIN [facility] [address] [place] [address], [id number] , [place] tel: [phone] [facility] abdominal discomfort (chief complaint) Nephrolithia sisCalculus of kidneyVomiti ng alone 3 [facility] as Dorian. [address] [place], [place], [id number], [place]. tel:[phone] OFFICE VISIT ESTAB PT 25 MIN [facility] [address] [place] [address], [id number] , [place] tel: [facility] abdominal discomfort (chief complaint) Nephrolithia sisCalculus of kidneyVomiti ng alone 3 [facility] as Dorian. [address] [place], [place], [id number], [place]. tel:[phone] [facility] [address] [place] [address], [id number] , [place] tel: [phone] [facility] examination 2 Yfn Hanson. [address] [place], [address], [place]. tel: [phone] [facility] [address] [place] [address], [id number] , [place] tel: [phone] [facility] contraception - desires temporary solution (chief complaint) Surveillance of other contraceptiv e method 2 Luigi Stuart. [address] [place], [address], [place]. tel:[phone] [facility] [address] [place] [address], [id number] , [place] tel: [phone] [facility] Depo Injection (chief complaint) Surveillance of other contraceptiv e methodOther general counseling and advice on contraceptiv e management 2 No Information OFFICE VISIT ESTAB PT 15 MIN [facility] [address] [place] [address], [id number] , [place] tel:[phone] [facility] ER (chief complaint) Anorexia 2 Jenn Sujey. [address] [place], [address], [place]. tel:[phone] OFFICE VISIT ESTAB PT 15 MIN [facility] [address] [place] [address], [id number] , [place] tel:[phone] [facility] anorexia (chief complaint) AnorexiaAnor exiaFamily planning servicesAnor exiaOther general counseling and advice on contraceptiv e management 2 Jenn Sujey. [address] [place] [address], [address], [place]. tel:[phone] OFFICE VISIT ESTAB PT 15 MIN [facility] [address] [place] [address], [id number] , [place] tel: [phone] [facility] release form (chief complaint)kid rick stones (chief complaint) Nephrolithia sisCalculus of kidney 2 Jenn Sujey. [address] [place], [address], [place]. tel:[phone] OFFICE VISIT ESTAB PT 15 MIN [facility] [address] [place] [address], [id number] , [place] tel:[phone] [facility] R flank pain (chief complaint) Renal colic 2 Christopher Vaibhav. [address] [place], [place], [id number], [place]. tel:[phone] OFFICE VISIT ESTAB PT 10 MIN [facility] [address] [place] [address], [id number] , [place] tel:[phone] [facility] Wants to establish PCP (chief complaint)col d symptoms (chief complaint) Respiratory Abnormality, OtherCoughCo ugh 2 Jenn Sujey. [address] [place] [address], [address], [place]. tel: [phone] OFFICE VISIT ESTAB PT 25 MIN [facility] [address] [place] [address], [id number] , [place] tel: [phone] [facility] UTI (chief complaint) Renal colicCalculu s of kidneyCalcul us of kidneyRenal colic 2 Christopher Vaibhav. [address] [place], [place], [id number], [place]. tel: [phone] OFFICE VISIT ESTAB PT 10 MIN [facility] [address] [place] [address], [id number] , [place] tel: [phone] [facility] back pain (chief complaint) Renal colicRenal colic 2 Jenn Sujey. [address] [place] [address], [address], [place]. tel:[phone] OFFICE VISIT ESTAB PT 25 MIN [facility] [address] [place] [address], [id number] , [place] tel: [phone] [facility] back pain (chief complaint) Renal calculus 2 Mayra Dionicio. [address] [place], [place], [id number], [place]. tel:[phone] [facility] [address] [place] [address], [id number] , [place] tel: [phone] [facility] examination 1 Yfn Hanson. [address] [place], [address], [place]. tel: [phone] [facility] [address] [place] [address], [id number] , [place] tel: [phone] [facility] Major depressive affective disorder, single episode, unspecified degreeFAMILY DISRUPTION NEC 1 Fady Gabriel. , [place], [place]. OFFICE VISIT ESTAB PT 15 MIN [facility] [address] [place] [address], [id number] , [place] tel:+ [phone] [facility] depression (chief complaint)tyler n (chief complaint)cesar ght loss (chief complaint) Depression Dec-0 1 Christopher Esposito. [address] [place], [place], [id number], [place]. tel:[phone] OFFICE VISIT ESTAB PT 25 MIN [facility] [address] [place] [address], [id number] , [place] tel: [phone] [facility] kidney stones / er (chief complaint)abd ominal discomfort (chief complaint) Kidney stonesHelico bacter pylori ab+Seasonal allergies Sep-2 1 Mayra Greenberg. [address] [place] [address], [id number], [place]. tel: [phone] [facility] [address] [place] [address], [id number] , [place] tel: [phone] [facility] examination Nov-0 1 Luiz Barillas. [address] [place] [address], [address], [place]. tel:[phone] OFFICE VISIT ESTAB PT 25 MIN [facility] [employer] [address] [place] [address], [id number] , [place] tel: [phone] [facility] discuss Depo (chief complaint) Loss of weightOther general counseling and advice on contraceptiv e management 3 1 Luigi Stuart. [address] [place] [address], [address], [place]. tel: [phone] OFFICE VISIT ESTAB PT 25 MIN [facility] [address] [place] [address], [id number] , [place] tel: [phone] [facility] vomiting (chief complaint)abd ominal discomfort (chief complaint) Abdominal pain UNSPCF SITEVomiting Nausea & vomitingLoss of weightUrinar y Tract InfectionCon stipation 0 1 Mayra Greenberg. [address] [place] [address], [id number], [place]. tel:[phone] OFFICE VISIT ESTAB PT 25 MIN [facility] [address] [place] [address], [id number] , [place] tel: [facility] cold symptoms (chief complaint)vom iting (chief complaint) Upper Respiratory Infection, AcuteAsthmaA norexia 1 Dalila Brown. [address] [place] [address], [id number], . tel:[phone] [facility] [employer] [address] [place] [address], [id number] , tel: [phone] [facility] No Information Nov-0 7- 0 No Information VISIT [employer] [address] [place] [address], [id number] , [place] tel: [facility] vaginal discharge (chief complaint) No Information Oct-2 0 Luigi Stuart. [address] [place] [address], [address], [place]. tel:[phone] [facility], [address] [place] [address], [id number] , tel: [facility] BP monitoring (chief complaint) Nonspecific low blood pressure reading Oct- 0 No Information VISIT [facility] [employer] [address] [place] [address], [id number] , tel: [phone] [facility] No Information Oct- 0 Luigi Stuart. [address] [place], [address], [place]. tel:[phone] VISIT [facility], [address] [place] [address], [id number] , [place] tel: [phone] [facility] No Information Oct-1 0-201 0 Luigi Stuart. [address] [place], [address], [place]. tel:[phone] VISIT [facility] [employer] [address] [place] [address], [id number] , tel: [phone] [facility] No Information Aug-0 3-201 0 Luigi Stuart. [address] [place], [address], [place]. tel:[phone] VISIT [employer] [address] [place] [address], [id number] , [place] tel: [facility] vaginal discharge (chief complaint) No Information 3 0-201 0 Meyers Narciso. [address] [place] [address], [address], [place]. tel:[phone] VISIT [employer] [address] [place] [address], [id number] , [place] tel: [phone] [facility] No Information 7-201 0 Meyersluz elena Stuart. [address] [place] [address], [address], [place]. tel:[phone] VISIT [employer] [address] [place] [address], [id number] , [place] tel: [facility] No Information 3-201 0 Meyersluz elena Stuart. [address] [place] [address], [address], [place]. tel:[phone] VISIT [employer] [address] [place] [address], [id number] , [place] tel: [phone] [facility] No Information 0 1-201 0 Meyers Narciso. [address] [place] [address], [address], [place]. tel:[phone] VISIT [employer] [address] [place] [address], [id number] , [place] tel: [phone] [facility] back pain (chief complaint) No Information 2-201 0 Belle Christine. [address] [place] [address], [address], [place]. tel:[phone] [employer] [address] [place] [address], [id number] , [place] tel: [phone] [facility] examination 6-201 0 No Information VISIT [employer] [address] [place] [address], [id number] , [place] tel: [phone] [facility] No Information 3-201 0 Belle Christine. [address] [place], [address], [place]. tel:[phone] [employer] [address] [place] [address], [id number] , [place] tel:[phone] [facility] examination May- 2-201 0 No Information VISIT [employer] [address] [place] [address], [id number] , [place] tel: [phone] [facility] vomiting (chief complaint)difatemeh ziness (chief complaint) No Information 1-201 0 Belle Christine. [address] [place], [address], [place]. tel:[phone] [address] [place] [address], [id number] , [place] tel: [phone] [facility] examination May-0 5-201 0 No Information OFFICE VISIT ESTAB PT 15 MIN [facility] [employer] [address] [place] [address], [id number] , [place] tel: [phone] [facility] vomiting (chief complaint) Mild hyperemesis gravidarum, antepartum Feb-2 3-201 0 Walser Nanci. [address] [place], [address], [place]. tel:[phone] [employer] [address] [place] [address], [id number] , [place] tel: [phone] [facility] examination Apr-2 2-201 0 No Information OFFICE VISIT ESTAB PT 15 MIN [facility] [address] [place] [address], [id number] , [place] tel: [phone] [facility] vomiting (chief complaint) Mild hyperemesis gravidarum, antepartum Feb-0 8-201 0 Walser Nanci. [address] [place], [address], [place]. tel:[phone] [address] [place] [address], [id number] , [place] tel: [phone] [facility] on - [facility] No Information 0 Services Social. , [place], [address], [place]. [employer] [address] [place] [address], [id number] , tel:+ [phone] [facility] OB Intake (chief complaint) Other specified counseling 0 Katrin Ramon. [address] [place] [address], [address], [place]. tel:[phone] [facility], [address] [place] [address], [id number] , [place] tel:+ [phone] [facility] OB INTAKE (chief complaint) No Information 0 No Information OFFICE VISIT ESTAB PT 25 MIN [facility] [employer] [address] [place] [address], [id number] , [place] tel:[phone] [facility] nausea (chief complaint) No Information 0 Luigi Cerdaele. [address] [place] [address], [address], [place]. tel:[phone] [facility], [address] [place] [address], [id number] , [place] tel:+ [phone] [facility] examination 0 No Information [employer] [address] [place] [address], [id number] , [place] tel:[phone] [facility] Test (chief complaint) No Information 0 No Information [facility], [address] [place] [address], [id number] , [place] tel:+ [phone] [facility] examination Dec-3 0-200 9 No Information [employer] [address] [place] [address], [id number] , [place] tel:+ [phone] [facility] examination Dec-2 3-200 9 No Information [employer] [address] [place] [address], [id number] , [place] tel:+ [phone] [facility] examination Dec-2 2200 9 No Information OFFICE VISIT ESTAB PT 10 MIN [employer] [address] [place], [place], [id number] , [place] tel:+ [phone] [facility] Vaccine (chief complaint) Other reasons for seeking consultation Dec-0 3200 9 No Information OFFICE VISIT ESTAB PT 15 MIN [employer] [address] [place] [address], [id number] , [place] tel:+ [phone] [facility] seeking preg. (chief complaint) PROCR MGMT CNSL/ADV NEC Sep-2 9-200 9 Belle Christine. [address] [place], [address], [place]. tel:[phone] OFFICE VISIT ESTAB PT 15 MIN [facility] [employer] [address] [place] [address], [id number] , [place] tel: [phone] [facility] excessive sweats under arm (chief complaint)abd ominal discomfort (chief complaint) Abdominal pain, unspecified siteAbdomina l pain, unspecified siteASTHMA,U NSPECIFIED TYPE, UNSPECIFIEDP rimary focal hyperhidrosi sAnemia, unspecified Sep-0 4200 9 [facility]. [address] [place] [address], [id number], . tel:[phone] OFFICE VISIT ESTAB PT 25 MIN [employer] [address] [place] [address], [id number] , [place] tel:+ [phone] [facility] acute pelvic pain (chief complaint)vom itigx4 today (chief complaint) Abdominal pain, unspecified site Noel-0 2200 9 No Information OFFICE VISIT ESTAB PT 10 MIN [facility] [employer] [address] [place] [address], [id number] , [place] tel:[phone] [facility] LLQ pain (chief complaint) Abdominal pain, left lower quadrant German-1 6200 9 [facility]. [address] [place] [address], [id number], . tel:[phone] OFFICE VISIT ESTAB PT 15 MIN [facility] [address] [place] [address], [id number] , [place] tel:+ [phone] [facility] IUD insertion (chief complaint) Other specified contraceptiv e management Dec-2 0-200 8 Meyers Narciso. [address] [place] [address], [address], [place]. tel:[phone] OFFICE VISIT ESTAB PT 15 MIN [facility] [employer] [address] [place] [address], [id number] , [place] tel: [phone] [facility] vomiting (chief complaint)abd ominal discomfort (chief complaint) No Information Sep-0 7-200 8 No Information OFFICE VISIT ESTAB PT 10 MIN [employer] [address] [place] [address], [id number] , [place] tel: [phone] [facility] vomiting (chief complaint)diz ziness (chief complaint) No Information May-3 1200 8 No Information OFFICE VISIT ESTAB PT 15 MIN [employer] [address] [place] [address], [id number] , [place] tel: [phone] [facility] diarrhea, black stools (chief complaint)vom iting (chief complaint) No Information May-1 0-200 8 No Information [facility] [employer] [address] [place] [address], [id number] , [place] tel: [phone] [facility] No Information Dec- 0-200 7 Catalina Lion. , [place], [place]. Consulting Provider: Amisha Arnold [place]. [facility] [employer] [address] [place] [address], [id number] , [place] tel: [phone] [facility] No Information Dec-0 1-200 7 Murtaza Perezen. [address] [place] [address], [id number], [place]. tel:[phone] [employer] [address] [place] [address], [id number] , [place] tel: [phone] [facility] No Information Sep-2 6-200 7 No Information [employer] [address] [place] [address], [id number] , [place] tel: [phone] [facility] No Information Sep-1 8-200 7 No Information [employer] [address] [place], [place], [id number] , [place] tel: [phone] [facility] No Information 5-200 7 No Information [facility] [address] [place] [address], [id number] , [place] tel: [phone] [facility] No Information Aug-0 7-200 7 No Information ASSESSMENT [facility] [address] [place] [address], [id number] , [place] tel: [phone] [facility] No Information 9200 7 Kellyser Nanci. [address] [place], [address], [place]. tel: [phone] VISIT [facility] [address] [place] [address], [id number] , [place] tel: [phone] [facility] No Information 7200 7 No Information VISIT [facility] [address] [place] [address], [id number] , [place] tel: [phone] [facility] No Information 7 Kellyser Nanci. [address] [place], [address], [place]. tel:[phone] OFFICE VISIT ESTAB PT 15 MIN [facility] [address] [place] [address], [id number] , [place] tel: [facility] No Information 8200 7 [facility]. [address] [place] [address], [id number], [place]. tel:[phone] OFFICE VISIT ESTAB PT 40 MIN [employer] [address] [place] [address], [id number] , [place] tel: [phone] [facility] No Information 4200 7 Kellyser Nanci. [address] [place], [address], [place]. tel: [phone] ASSESSMENT [facility] [address] [place] [address], [id number] , tel: [phone] [facility] No Information 7 No Information SOCIAL SERVICE COUNSELING [facility], [address] [place] [address], [id number] , tel:+ [phone] [facility] No Information Services Social. , [place], [place], [facility], . OFFICE VISIT ESTAB PT 15 MIN [facility], [address] [place] [address], [id number] , tel:+ [phone] [facility] No Information 7 No Information [facility], [address] [place] [address], [id number] , tel:+ [phone] [facility] Anemia, unspecifiedA STHMA,UNSPEC IFIED TYPE, UNSPECIFIED No Information Family History Family Member Type Diagnosis Age At Onset Mother Problem (finding) renal stone Sister Problem (finding) asthma Father Problem (finding) asthma Sister Problem (finding) asthma Sister Problem (finding) Alive and well Brother Problem (finding) Alive and well Brother Problem (finding) Alive and well Immunizations Vaccine Date Status Comments Flu Vaccine ([id number]) administered Sour ce: New Immunization Record Flu (age 3 and above) administered Note: VIS given, S/E and contraindications reviewed, denies allergies ; Source: New Immunization Record hep B (ped/adol, 3 dose) administered Nicole rce: New Immunization Record Payers Payer name Insurance type Covered green party ID Authoriza tion(s) [facility] [employer] [place] [id number] Medicaid [id number] [facility] [employer] CI [id number] [facility] [employer] CI [id number] Social History Type Description Quantity Date Captured [...] Lifestyle education regardin g diet completed Goal Unhealthy drug use screening due Goal [...] due Goal Tdap. Due on due Goal Depression scree nabila. [...] due Goal Tobacco cessation counseling completed Goal Tdap. Due on due Goal Td [...] [facility] To: [facility] [address] [place] [address], [address] [phone] Ordered: Referrals: Obstetrics and Gynecology. [facility] [...] Order: Lab Order TSH Base line KH (879), Ordered on: Ordered Future Order: Lab Order Vitamin D 25 Hydroxy Level ([id number]), Ordered on: Ordered Future Order: Lab Order Urinalys is That Reflexes To Microscopic (1162), Ordered on: Ordered Future Order: Lab Order Magnesiu m Level (369), Ordered on: Ordered Future Order: Lab Order STOOL CU LTURE ([id number]), Ordered on: Ordered Future Order: Radiol ogy Order MRI: Thoracic Spine (MRITSPINE), Sent on: Sent Future Order: Radiol ogy Order US (Ultrasound): (US), Appointment on: , Sent on: Sent Future Order: Lab Order CREATINI NE/CR ([id number]), Ordered on: Ordered Future Order: Lab Order Urinalys is ([id number]), Ordered on: Ordered Future Order: Lab Order Helicoba ct H Pylori Breath ([id number]), Ordered on: Ordered Future Order: Radiol ogy Order US ABD COMP, 05053 (US ABD COM), Ordered on: Ordered Future Order: Radiol ogy Order RAD EXAM FINGER(S) 2V, 99614 (XR FINGER), Ordered on: Ordered Future Order: Radiol ogy Order US ABD COMP, 14670 (US ABD skedge.me), Appointment on: , Sent on: Sent Future Order: Lab Order HELICOBA CTER FECAL ([id number]), Ordered on: Ordered Future Order: Lab Order STOOL CU LTURE ([id number]), Ordered on: Ordered Future Order: Lab Order HELICOBA CTER PYLORI - IGG (4091), Ordered on: Ordered Future Order: Lab Order TISSUE T RANSGLUTINASE IGG (7257), Ordered on: Ordered Future Order: Lab Order TISS TRA NSGLUTAMINASE IGA (1334), Ordered on: Ordered Future Order: Lab Order CBC (W D IFF AND PLATELET) (1979), Sent on: Sent Future Order: Lab Order SCREEN F OR BETA HEMOLYTIC STREP B (5022), Appointment on: , Sent on: Sent Future Order: Lab Order Urine Di pstick ([id number]), Appointment on: Ordered Future Order: Lab Order FOBT Yesi gnostic ([id number]), Appointment on: Ordered Future Order: Lab Order AFP Quad (3121), Appointment on: , Sent on: Sent Future Order: Lab Order Urine Di pstick ([id number]), Appointment on: Ordered Future Order: Lab Order Urine Pr egnancy Test (52239), Appointment on: Ordered Future Order: Lab Order Urine Pr egnancy Test (02759), Appointment on: Ordered Future Order: Lab Order Urine Pr egnancy Test (71476), Appointment on: Ordered Future Order: Lab Order [...] Order: Lab Order Urine Pr egnancy Test (12846), Appointment on: Ordered Future Order: Lab Order Urine Di pstick (11891), Appointment on: Ordered Future Order: Lab Order Urine Pr egnancy Test ([id number]), Appointment on: Ordered Future Order: Lab Order Urine Pr egnancy Test (03002), Appointment on: Ordered History Of Present Illness [...] weakness Patient was s een at [facility] for left flank pain and was found to have right leg weakness while in the ER. Patient reports pain rating 7/10, describing the pain as sharp in nature. Additionally, the patient reports experiencing numbness and tingling sensation in her feet. She expresses difficulty with walking and is requesting a referral for physical therapy.BRIM SHAPER note: pt was seen Neurology in the Hospital. MRI of th e brain, cervical/thoracic/lumber spine were all normal. Labs were also normal. No definite etiology for her right leg weakness causing her to have trouble walking was found. Pt was refer to physical therapy for rehabilitation. pt requesting referral to physical therapy add Pt has upcoming appt with yard labor supervisor Dr. Phong Griffith, out of [facility] on 01/09 reports office needs a referral. Pt also wanted to share that she has [employer] insurance. . 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 trying to conceive Had a tubal r eversal 3 months ago in [place]. Here to see why she has not [...] Pain Had btl 2d ag o in [place], crying moaning, shakin in pain. back pain Onset: 1 day ago . Severity level is severe. The problem is worsening. Location of pain is lower back.There is no radiation of pain. Context: no injury. Symptoms are aggravated by ascending stairs, daily activities, descending stairs, lifting, lying/rest, rolling over in bed and walking. back pain (comments) BRIM SHAPER note: Pt presents with back pain since Saturday night. The patient does not remember a mechanism of injury. The pain began mild but now is 10/10, she has not taken anything at home from it. Tried only heat for pain relief and it did not help. Follow Up of Reyna mo (comments) pt has engaged with in [facility] however there are no prescribers there for med adjustments. reports minimal effect from buspar 5mg BID. continues with episodes of palpitations, skipped" heartbeats with her anxiety.she is also having continued R flank pain d/t recurrent renal stones. has ? hx medullary sponge kidney. has not seen urology or nephrology in years. used to see Dr. Gardiner on [facility]. Follow Up of Depression Follow Up of Depression This is a [...] diminished interest or pleasure. Follow Up of Reyna mo (comments) needs note for continued FMLA from work. continues psych meds but has been unable to make appts with d/t no rides from [employer]. unable to get in toufch with local provider jassi gave info for. denies SI/HI. still feeling anxious, depressed. sertraline helping some. sleep is improving. getting 2-3 hours sleep. trazodone was not helping. continues with high anxiety. 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 Follow Up of gastritis Follow Up of Depression This is a follow up visit. There is improvement of initial symptoms. The patient does not present with depressed mood or diminished interest or pleasure. ER Patient was seen in the ER at [facility] about 1 week ago .(records requested) And also was seen yesterday in the ER at [facility] ( records requested) for kidney stones [...] pain. 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 Related to Major depressive disorder, single episode, unspecified Please keep your harvinder t w/ BHContinue medicationFollow-up 2 weeksGo to ER or call 911 if any SI/HI Related to Major depressive disorder, recurrent, unspecified Increase sertraline to 100mgPt will see Brenda today at [address] [place] [address] seeing family counselor (located on [facility])Able to contract for safety. No SI/HIFollow-up [...] to Epig astric pain call therapist on [facility] to make urgent appointmentescitalopram 1 daily [...] nd made informed decision Increase activity level Continue current medication Reviewed medications Patient understood a nd made informed decision Add structured routine Follow exercise program Call office if symptoms worsen Go to ER if risk of harm to self or others Increase rest Reviewed medications Activity as tolerated Reviewed medications Continue current medication Return to office in 48-72hours R elated to Reviewed medications Take new medication as prescribe d Activity as tolerated Assessments Type Assessment Date No Information Patient Care Teams Name Effective Dates (start - stop) Status Members No Information
--- OUTSIDE RECORDS SUMMARY | 2024-11-26 08:45 | XMS_ITS | Encounter Summary ---
Author Organization [facility] Address [address] [facility] [address] [place] [phone] Phone Care Team Providers Care City Manager Name Role Phone Pcp, Not Required Primary Care Provider Unavaila ble Reason for Visit * Physical Therapy (Within 1 month) - Authorized Specialty Diagnoses / Procedures Referred By Contac t Referred To Contact Physical Therapy Diagnoses Labral tear of long head of right biceps tendon, sequela Nikita Mireles PA-C [address] [place] [address] Dr. Meghann [place] Phone: tel: fax: [email or web address] [address] [place] [address] Phone: tel: Referral ID Status Reason Start Date Expiration Date V isits Requested Visits Authorized [id number] Authorized 11/26/2024 01/01/2025 9 9 Encounter Details Date Type Department Care Team (Late st Contact Info) Description 11/26/2024 8:45 AM EDT Office Visit [facility] 8 [facility] [place] [address] Nikita Mireles PA-C [address] [place] [address] Dr. Meghann [place] [email or web address] Kuldeep Benjamin, PT [address] [place] [address] Weakness of right shoulder (Primary Dx) Social History Tobacco Use Types Packs/Day Years [...] uch as food, clothing, or medical care? Deferred 11/17/2024 In the past 12 months have y ou been in a relationship with a person who hurts, threatens, or tries to control you? Deferred 11/17/2024 Are you denied basic needs s uch as food, clothing, or medical care? Deferred 11/17/2024 In the past 12 months have y ou been in a relationship with a person who hurts, threatens, or tries to control you? Deferred 11/17/2024 Comments No Sex and Gender Information Value Date Recorded Sex Assigned at Female 09/14/2023 7:34 PM EDT Legal Sex Female 7:09 PM EDT Gender Identity Female 09/14/2023 7:34 PM EDT Sexual Orientation Straight 09/14/2023 7: 34 PM EDT documented as of this encounter Progress Notes * Kuldeep Dominguez, PT - 11/26/2024 8:45 AM EDT Physical Therapy Evaluation PHYSICAL THERAPY INITIAL EVALUATION Subject Line: Evaluation Visit: 1 Patient Name: Paul Estrella Date of : 1985 Referring MD: Nikita Mireles PA-C [address] [place] [address] Dr. Zavaleta, DUSTIN [address] Evaluation Date: 11/26/2024 Diagnosis: Weakness of right shoulder [R29.898] Right hand dominant. Subjective/History of Present Illness: Having a hard time sleeping- usually sleeps in prone. Sleeping in bed with body pillow. Oxycodone at night to sleep 5 mg. Tylenol during the day 500 mg. Has been doing pendulums Able to shower Fell down stairs September 2023- had PT after that. 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 yes Pain Comments: 06/18 Objective Measures: Posture/Observation: Incisions dry and intact- no excessive redness Wearing sling- normal posture Range of Motion: Upper Extremity ROM SHOULDER AROM PROM Right Left Right Left Flexion na 165 80 >165 Extension na wfl nt >165 Abduction na 165 nt Internal Rotation na wfl 30 (at 60 abd) WFL External Rotation na WFL neutral wfl Elbow ext 5 lacking Sup 5 lacking Flexion - normal Wrist normal Strength: Left arm 5/5 Right arm not tested Palpation: Tolerates ROM and light touch at shoulder. 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 She is relatively comfortable sitting with her sling on however, she cont to have some difficulty getting comfortable sleeping. She tolerates PROM well with good mobility for this phase of her recovery. She is indep with pendulums and is wearing her sling appropriately. Expect good progress through RC repair protocol. GOAL (Short Term): in 2-3 wks 1.PROM right shoulder IR to 75 degr 2.PROM right shoulder elevation 125 OUTCOME (Jail): By Dec 17.PROM: -sh elevation to 165 -Abd to 150 -ER 80 -IR 80 -Indep with AAROM By Dec 31: 2.AROM -AROM sh elevation and abduction to 130 with normal scapular mechanics - to allow ability to do hair 3.Sleep unlimited by shoulder discomfort 4.By Jan 21 AROM sh elevation > 160 with normal scapula mechanics 5.By Feb 04: -symmetrical AROM of left shoulder- for overhead reaching -indep with strengthening ex Patient Stated Goal: Unlimited use of left UE PLAN Frequency and Duration: Patient will be seen 1-2 times per week for 16 weeks. PROM per protocol AROM per protocol RC isometrics starting Dec 31 Strengthening (tband, dynamic stab) start Jan 31 The complexity of this evaluation is based on standardized patient assessment instruments and/or standardized measurable functional outcome. The complexity of this evaluation is based on standardized patient assessment instruments and/or standardized measurable functional outcome. Personal factors and co-morbidities that impact plan of care: none Education and/or treatment provided today: reviewed pendulums. Elbow and wrist ROM. Reviwed rehab protocol. Frequency & Duration of Treatment Plan: Frequency: 2 x per week Duration: for 16 weeks The Patient/Family is in agreement with the plan of care. Thank you for this referral. Kuldeep Dominguez PT [id number] documented in this encounter Plan of Treatment Upcoming Encounters Date Type Department Care Team (Late st Contact Info) Description 12/04/2024 2:30 PM EDT Office Visit [facility] [address] [place] [address] [place] [address] Nikita Mireles PA-C [address] [place] [address] [place] [address] [email or web address] Karyna Aguirre, PT [address] [place] [address] [email or web address] 12/07/2024 11:00 AM EDT Office Visit [facility] [address] [place] [address] Nikita Mireles PA-C [address] [place] [address] [place] [address] [email or web address] Kuldeep Dominguze, PT 8 [place] [address] 12/09/2024 10:15 AM EDT Office Visit [facility] 8 [place] [address] Nikita Mireles PA-C [address] [place] [address] [place] [address] [email or web address] Kuldeep Dominguez, PT [address] [place] [address] [email or web address] 12/16/2024 10:00 AM EDT Office Visit [facility] [address] [place] [address] Nikita Mireles PA-C [address] [place] [address] [place] [address] [email or web address] Karyna Aguirre, PT 8 [place] [address] 12/18/2024 11:30 AM EDT Office Visit [facility] [address] [place] [address] Nikita Mireles PA-C [address] [place] [address] [place] [address] [email or web address] Karyna Aguirre, PT 8 [place] [address] 12/23/2024 10:00 AM EDT Office Visit [address] [place] [address] Nikita Mireles PA-C [address] [place] [address] [place] [address] [email or web address] Karyna Aguirre, PT 8 [place] [address] 12/28/2024 10:00 AM EDT Office Visit [address] [address] Nikita Mireles PA-C [address] [place] [address] [place] [address] [email or web address] Karyna Aguirre, PT 8 [place] [address] 12/30/2024 10:00 AM EDT Office Visit [address] [place] [address] Nikita Mireles PA-C [address] [place] [address] [place] [address] [email or web address] Karyna Aguirre, PT 8 [place] [address] 12/30/2024 11:15 AM EDT Office Visit [facility] [address] [place] [address] Jalen Sweeney DO [address] [place] [address] [facility] [place] [address] [email or web address] 01/04/2025 10:00 AM EDT Office Visit [address] [place] [address] Nikita Mireles PA-C [address] [place] [address] [place] [address] Karyna Aguirre, PT 8 [place] [address] [email or web address] 01/06/2025 10:00 AM EDT Office Visit [address] [place] [address] Nikita Mireles PA-C [address] [place] [address] [place] [address] [email or web address] Karyna Aguirre, PT 8 [place] [address] [email or web address] 01/11/2025 10:00 AM EST Office Visit [address] [place] [address] Nikita Mireles PA-C [address] [place] [address] [place] [address] [email or web address] Karyna Aguirre, PT [address] [place] [address] [email or web address] Scheduled Referrals Name Type Priority Associated Diagnoses Order Schedule Ambulatory referral to [facility] Physical Therapy Outpatient Referral Routine Labral tear of long head of right biceps tendon, sequela Ordered: 10/21/2024 documented as of this encounter Visit Diagnoses Diagnosis Weakness of right shoulder- Primary documented in this encounter Care Teams City Manager Relationship Specialty Start Date End Date Pcp, Not Required [address] [place] [address] PCP - General 11/09/15 documented as of this encounter Additional Source Comments The information contained in this document represents components of the legal health record. It is not the complete legal health record.[facility]
--- OUTSIDE RECORDS SUMMARY | 2024-12-02 09:40 | XMS_ITS | Encounter Summary ---
Author Organization [facility] Address [address] [employer] [address] [address] Phone Care Team Providers Care Climbing Guide Name Role Phone Pcp, Not Required Primary Care Provider Unavaila ble Reason for Visit * Reason Comments Post-op Post op utures r emoval Encounter Details Date Type Department Care Team (Late st Contact Info) Description 12/02/2024 9:40 AM EDT Office Visit [facility] [address] [place] [address] Nikita Mireles PA-C [address] [place] [address] [place] [address] [email or web address] H/O repair of right rotator cuff (Primary Dx) Social History Tobacco Use Types [...] your housing situation today? I have dana walsh 10/08/2024 How many times have you move [...] as of this encounter Progress Notes * Nikita Mireles PA-C - 12/02/2024 9:40 AM EDT HPI: The patient returns today approximately 20 days status post right shoulder arthroscopic rotator cuff repair and biceps tenodesis. They are doing quite well. Denies any fevers, chills or night sweats. Pain reasonably well controlled however patient still requiring opioids and requesting a refill today. Examination: Right upper extremity: NVI Incision: C/D/I, minimal local erythema, no drainage Minimal edema Limited range of motion secondary to pain. Treatment: We have gone over all the arthroscopic findings in great detail including the arthroscopic images. We have gone over the reasonable expectations of rehabilitation. We will initiate the rotator cuff protocol with physical therapy. Next Appointment: 3 Weeks Visit Code: [id number] POST OP VISIT GLOBAL N/C. documented in this encounter Plan of Treatment Upcoming Encounters Date Type Department Care Team (Late st Contact Info) Description 12/04/2024 2:30 PM EDT Office Visit [address] [place] [address] Nikita Mireles PA-C [address] [place] [address] [place] [address] Karyna Aguirre, PT [address] [place] [address] 12/07/2024 11:00 AM EDT Office Visit [address] [place] [address] Nikita Mireles PA-C [address] [place] [address] [place] [address] Kuldeep Dominguez, PT [address] [place] [address] 12/09/2024 10:15 AM EDT Office Visit [facility] [address] [place] [address] Nikita Mireles PA-C [address] [place] [address] [place] [address] Kuldeep Dominguez, PT [address] [place] [address] 12/16/2024 10:00 AM EDT Office Visit [facility] [address] [place] [address] Nikita Mireles PA-C [address] [place] [address] [place] [address] Karyna Aguirre, PT 8 [place] [address] 12/18/2024 11:30 AM EDT Office Visit [address] [place] [address] Nikita Mireles PA-C [address] [place] [address] [place] [address] Karyna Aguirre, PT 8 [place] [address] 12/23/2024 10:00 AM EDT Office Visit [address] [place] [address] Nikita Mireles PA-C [address] [place] [address] [place] [address] Karyna Aguirre, PT [address] [place] [address] 12/28/2024 10:00 AM EDT Office Visit [address] [place] [address] Nikita Mireles PA-C [address] [place] [address] [place] [address] Karyna Aguirre, PT [address] [place] [address] 12/30/2024 10:00 AM EDT Office Visit [address] [place] [address] Nikita Mireles PA-C [address] [place] [address] [place] [address] Karyna Aguirre, PT [address] [place] [address] 12/30/2024 11:15 AM EDT Office Visit [facility] [address] [place] [address] Jalen Sweeney DO [address] [place] [address] Orthopedics & Sports Medicine, [facility] [place] [address] 01/04/2025 10:00 AM EDT Office Visit [address] [place] [address] Nikita Mireles PA-C [address] [place] [address] [place] [address] Karyna Aguirre, PT [address] [place] [address] 01/06/2025 10:00 AM EDT Office Visit [address] [place] [address] Nikita Mireles PA-C [address] [place] [address] [place] [address] Karyna Aguirre, PT 8 [place] [address] 01/11/2025 10:00 AM EST Office Visit [facility] [address] [place] [address] Nikita Mireles PA-C [address] [place] [address] [place] [address] Karyna Aguirre, PT [address] [place] [address] [email or web address] documented as of this encounter Visit Diagnoses Diagnosis H/O repair of right rotator cuff- Primary documented in this encounter Care Teams Climbing Guide Relationship Specialty Start Date End Date Pcp, Not Required [address] [place] [address] PCP - General 11/09/15 documented as of this encounter Additional Source Comments The information contained in this document represents components of the legal health record. It is not the complete legal health record.[facility]
[2024-12-04] VITALS (8 sets, daily range): BP systolic 115–132; BP diastolic 72–92; PULSE 84–117; RESP 8–22; TEMP 36.8–37.1; O2SAT 97–100; BMI 25.9
--- NOTE | ~2024-12-04 | CT_ITS ---
EXAMINATION: CT ABDOMEN AND PELVIS WITHOUT CONTRAST CLINICAL INFORMATION: hx of kidney stone, Rt flank pain COMPARISON: 02/23/2024 TECHNIQUE: Multidetector volumetric imaging was performed from the superior aspect of the liver through the pubic symphysis. Sagittal and coronal reformatted images were obtained on the technologist's workstation. This CT examination was performed using dose optimization techniques as appropriate, variously including the following: *Automated exposure control *Adjustment of mA and/or kV according to patient size (this includes techniques or standardized protocols for targeted exams where dose is matched to indication/reason for exam; i.e. extremities or head) *Use of iterative reconstruction technique FINDINGS: LUNG BASES: The visualized lung bases are unremarkable. LIVER, GALLBLADDER, AND BILIARY TREE: The liver is normal in size, shape, and attenuation. No focal hepatic lesion or biliary ductal dilatation is present. The gallbladder is unremarkable with no evidence of radiopaque gallstones, gallbladder wall thickening, or obvious pericholecystic inflammatory changes. PANCREAS: Unremarkable. SPLEEN: Unremarkable. ADRENAL GLANDS: Unremarkable. KIDNEYS AND URETERS: There are 3 stones in the left kidney. The largest is 4 x 7 mm. This represents an increase of 1 stone since the prior There are 3 stones in the right kidney, previously 2. Stone in the mid to upper kidney measures 6 x 9 mm and was not present on the prior. Stone in the mid to lower right kidney measures 7 x 10 mm, previously 7 x 9 mm. There appears to be 1 mm stone in the distal right ureter near the ureterovesicular junction. There is minimal hydroureter. BLADDER: Unremarkable. GASTROINTESTINAL TRACT: The small and large bowel are unremarkable. The appendix is unremarkable. ABDOMINAL WALL: No significant hernia is appreciated. Bilateral breast implies grossly intact. LYMPH NODES: Normal. VASCULAR: Unremarkable. PELVIC VISCERA: Unremarkable. OSSEOUS STRUCTURES: There is mild levoscoliosis in the thoracal lumbar spine. CT/CT abdomen pelvis wo IV con IMPRESSION: 1 mm stone in the distal right ureter near the ureterovesicular junction with minimal hydroureter. Increasing stone burden since CT February 2024 Fleischner guidelines were followed. Electronically signed by: Rolando Guzman MD 12/04/2024 04:24 PM EDT
[2024-12-04 10:12] LABS: MANUAL DIFF FLAG NO
[2024-12-04 10:28] LABS: Hematocrit 36.4 % (37.0-47.0); Hemoglobin 12.3 g/dl (12.0-16.0); IDNOW Serial# 55D5AD1C; Imm Gran Abs Auto 0.04 X10*3/uL (0.00-0.03); Imm Gran Pct Auto 0.4 % (0.0-0.4); Influenza B2 Negative (Negative); Lymphocytes Absolute Auto 2.1 X10*3/uL (1.2-4.9); Mean Corpuscular HGB Conc 33.8 g/dl (31.0-35.0); Mean Corpuscular Hemoglobin 28.6 pg (27.0-33.0); Mean Corpuscular Volume 84.7 fL (80.0-98.0); NRBC Abs Auto 0.000 X10*3/uL (0.0-0.012); NRBC Pct Auto 0.0 /100WBC (0.0-0.2); Platelet Count 380 X10*3/uL (160-400); Red Blood Count 4.30 X10*6/uL (4.20-5.50); White Blood Count 9.0 X10*3/uL (4.8-10.8)
[2024-12-04 10:29] LABS: COVID-19 Test Negative (Negative); IDNOW Serial# 6674DD1D
[2024-12-04 10:38] LABS: Alanine Aminotransferase 14 U/L (0-31); Albumin Level 4.4 g/dL (3.5-5.0); Alkaline Phosphatase 69 U/L (39-117); Anion Gap 12 (12-20); Aspartate Amino Transferase 18 U/L (5-31); Blood Urea Nitrogen 10 mg/dL (9-16); Calcium 9.5 mg/dL (8.4-10.2); Carbon Dioxide 23 mmol/L (22-29); Chloride 110 mmol/L (96-108); Creatinine Clr Calc Pharmacy 127.6; Estimated Glomerular Filt Rate > 60; Lipase 17 U/L (8-78); Potassium 3.7 mmol/L (3.3-5.1); Sodium 141 mmol/L (135-145); Total Protein 7.3 g/dL (6.5-8.0)
--- OUTSIDE RECORDS SUMMARY | 2024-12-04 11:02 | XMS_ITS | Encounter Summary ---
Author Organization [facility] Address [address] [facility] [address] [place] [address] Phone Care Team Providers Care Cat Scanner Operator Name Role Phone Pcp, Not Required Primary Care Provider Unavaila ble Encounter Details Date Type Department Care Team ([facility] st Contact Info) Description 11/12/2024 Procedure Pass OR Admitting Dept - Virtual Department [address] [place] [address] Social History Tobacco Use Types Packs/Day Years [...] Description 12/04/2024 2:30 PM EDT Office Visit [facility] [address] [place] [address] Nikita iMreles PA-C [address] [place] [address] [place] [address] Karyna Aguirre, PT 8 [place] [address] 12/07/2024 11:00 AM EDT Office Visit [facility] [address] [place] [address] Nikita Mireles PA-C [address] [place] [address] [place] [address] Kuldeep Dominguez, PT 8 [place] [address] 12/09/2024 10:15 AM EDT Office Visit [facility] [address] [place] [address] Nikita Mireles PA-C [address] [place] [address] [place] [address] Kuldeep Dominguez, PT 8 [place] [address] 12/16/2024 10:00 AM EDT Office Visit [facility] [address] [place] [address] Nikita Mireles PA-C [address] [place] [address] [place] [address] Karyna Aguirre, PT 8 [place] [address] 12/18/2024 11:30 AM EDT Office Visit [facility] [address] [place] [address] Nikita Mireles PA-C [address] [place] [address] [place] [address] Karyna Aguirre, PT 8 [place] [address] 12/23/2024 10:00 AM EDT Office Visit [facility] [address] [place] [address] Nikita Mireles PA-C [address] [place] [address] [place] [address] Karyna Aguirre, PT 8 [place] [address] 12/28/2024 10:00 AM EDT Office Visit [facility] [address] [place] [address] Nikita Mireles PA-C [address] [place] [address] [place] [address] Karyna Aguirre, PT 8 [place] [address] 12/30/2024 10:00 AM EDT Office Visit [facility] [address] [place] [address] Nikita Mireles PA-C [address] [place] [address] [place] [address] Karyna Aguirre, PT 8 [place] [address] 12/30/2024 11:15 AM EDT Office Visit [facility] [address] [place] [address] Jalen Sweeney DO [address] [place] [address] [facility] [place] [address] 01/04/2025 10:00 AM EDT Office Visit [address] [place] [address] Nikita Mireles PA-C [address] [place] [address] [place] [address] [email or web address] Karyna Aguirre, PT 8 [place] [address] [email or web address] 01/06/2025 10:00 AM EDT Office Visit [address] [place] [address] Nikita Mireles PA-C [address] [place] [address] [place] [address] [email or web address] Karyna Aguirre, PT 8 [place] [address] [email or web address] 01/11/2025 10:00 AM EST Office Visit [address] [place] [address] Nikita Mireles PA-C [address] [place] [address] [place] [address] [email or web address] Karyna Aguirre, PT 8 [place] [address] [email or web address] documented as of this encounter Visit Diagnoses Not on filedocumented in this encounter Care Teams Cat Scanner Operator Relationship Specialty Start Date End Date Pcp, Not Required [address] [place] [address] PCP - General 11/09/15 documented as of this encounter Additional Source Comments The information contained in this document represents components of the legal health record. It is not the complete legal health record.[facility]
--- OUTSIDE RECORDS SUMMARY | 2024-12-04 11:02 | XMS_ITS | Clinical Summary ---
Author Organization [facility] Address [address] [place] [phone] Phone Care Team Providers Care Supervisor Gluing Name Role Phone Pcp, Not Required Primary [...] hours as needed for wheezing. 18 g 06/19/19 25 Active inhaler spacing device (AEROCHAMBER,BREAT HERITE) Spcr Inhale 1 each into the lungs every 4 (four) hours as needed (Use with your albuterol inhaler). 1 each 06/19/19 25 Active tamsulosin (FLOMAX) 0.4 mg Cap Take 1 capsule (0.4 mg total) by mouth daily for 10 days. 10 capsule 07/13/19 25 Active ondansetron (ZOFRAN-ODT) 4 MG disintegrating tablet Take 1 tablet (4 mg total) by mouth every 8 (eight) hours as needed for nausea. 12 tablet 11/18/19 25 Active oxyCODONE 5 MG immediate release tabletIndications: Traumatic complete tear of right rotator cuff, initial encounter Take 1-2 tablets (5-10 mg total) by mouth every 4 (four) hours as needed for pain (specific location in comments) (postop shoulder pain). Partial fill ok 30 tablet 11/24/19 25 Active oxyCODONE 5 MG immediate release tabletIndications: H/O repair of right rotator cuff Take 1 tablet (5 mg total) by mouth every 4 (four) hours as needed for pain (specific location in comments) (postop shoulder pain). Partial fill ok 24 tablet 12/03/19 25 Active ibuprofen (ADVIL,MOTRIN) 600 MG tablet Take 1 tablet (600 mg total) by mouth every 6 (six) hours for 5 days. 20 tablet 07/13/19 25 025 Discontin ued(Stop Taking at Discharge ) oxyCODONE 5 MG immediate release tablet Take 1-2 tablets (5-10 mg total) by mouth every 4 (four) hours as needed for pain (specific location in comments) (postop shoulder pain). Partial fill ok 30 tablet 11/13/19 25 025 Discontin ued(Reord er) Active Problems No known active problems Encounters Date Type Department Care Team Description 12/02/2024 9:40 AM EDT Office Visit [facility] Orthopedics & Sports Medicine [address] [place] [address] Nikita Mireles PA-C H/O repair of right rotator cuff (Primary Dx) 11/26/2024 8:45 AM EDT Office Visit [facility] [address] [place] [address] Nikita Mireles PA-C Bell, Ross, PT Weakness of right shoulder (Primary Dx) 11/17/2024 6:36 PM EDT - 11/17/2024 11:43 PM EDT Emergency [facility] [address] [place] [address] Kale Cabrera MD Discharge Disposition: Home or Self Care 11/13/2024 Telephone [facility] Orthopedics & Sports Medicine [address] [place] [address] Brandee Vang RN Pain control 11/12/2024 12:48 PM EDT Anesthesia Event OR Admitting Dept - Virtual Department [address] [place] [address] May Camarillo MD 11/12/2024 12:35 PM EDT - 11/12/2024 2:23 PM EDT Surgery OR Admitting Dept - Virtual Department [address] [place] [address] Jalen Sweeney, ARTHROSCOPIC REPAIR ROTATOR CUFF SHOULDER 11/12/2024 10:01 AM EDT - 11/12/2024 4:15 PM EDT Hospital Encounter OR Admitting Dept - Virtual Department [address] [place] [address] Jalen Sweeney, Discharge Disposition: Home or Self Care 11/12/2024 Procedure Pass OR Admitting Dept - Virtual Department [address] [place] [address] 11/11/2024 8:00 AM EDT Pre-Admission Testing Pre Procedure Evaluation [address] [place] [address] Jalen Sweeney DO 10/21/2024 8:40 AM EDT Office Visit [facility] Orth[facility]ics [facility] Medicine [address] [place] [address] Nikita Mireles PA-C Labral tear of long head of right biceps tendon, sequela (Primary Dx); Traumatic incomplete tear of right rotator cuff, sequela; Preop examination 10/08/2024 4:13 PM EDT - 10/08/2024 8:03 PM EDT Emergency [facility] [address] [place] [address]198 Harika Wright PA-C Discharge Disposition: Home or Self Care 10/08/2024 Procedure Pass [facility] [address] [place] [address] 09/30/2024 9:53 AM EDT - 09/30/2024 11:59 PM EDT Hospital Encounter [facility] EKG [address] [place] [address] Jalen Sweeney, Discharge Disposition: Home or Self [...] Sign Reading Time Taken Comments Blood Pressure 145/94 11/17/2024 11:24 PM EDT Pulse 112 11/17/2024 11:24 PM EDT Temperature 36.4 C (97.5 F) 11/17/2024 11:24 PM EDT Respiratory Rate 20 11/17/2024 11:24 PM EDT Oxygen Saturation 99% 11/17/2024 11:24 PM EDT Inhaled Oxygen Concentration - - Weight 73.9 kg (163 lb) 11/17/2024 6:42 PM EDT Height 167.6 cm (5' 6 ) 11/17/2024 6:42 PM EDT Body Mass Index 26.31 11/17/2024 6:42 PM EDT Plan of Treatment Upcoming Encounters Date Type Department Care Team (Late st Contact Info) Description 12/04/2024 2:30 PM EDT Office Visit [facility] [address] [place] [address] Nikita Mireles PA-C [address] [place] [address] [place] [address] Karyna Aguirre, PT [address] [place] [address] 12/07/2024 11:00 AM EDT Office Visit [facility] [address] [place] [address] Nikita Mireles PA-C [address] [place] [address] [place] [address] Kuldeep Dominguez, PT [address] [place] [address] 12/09/2024 10:15 AM EDT Office Visit [facility] [address] [place] [address] Nikita Mireles PA-C [address] [place] [address] [place] [address] Kuldeep Dominguez, PT [address] [place] [address] 12/16/2024 10:00 AM EDT Office Visit [facility] [address] [place] [address] Nikita Mireles PA-C [address] [place] [address] [place] [address] Karyna Aguirre, PT [address] [place] [address] 12/18/2024 11:30 AM EDT Office Visit [address] [address] Nikita Mireles PA-C [address] [place] [address] [place] [address] Karyna Aguirre, PT [address] [place] [address] 12/23/2024 10:00 AM EDT Office Visit [facility] [address] [place] [address] Nikita Mireles PA-C [address] [place] [address] [place] [address] Karyna Aguirre, PT [address] [place] [address] 12/28/2024 10:00 AM EDT Office Visit [facility] [address] [place] [address] Nikita Mireles PA-C [address] [place] [address] [place] [address] Karyna Aguirre, PT [address] [place] [address] 12/30/2024 10:00 AM EDT Office Visit [address] [place] [address] Nikita Mireles PA-C [address] [place] [address] [place] [address] Karyna Aguirre, PT [address] [place] [address] 12/30/2024 11:15 AM EDT Office Visit [facility] Orthopedics & Sports Medicine [address] [place] [address] Jalen Sweeney DO [address] [place] [address] Orthopedics & Sports Medicine, [facility] [place] [address] 01/04/2025 10:00 AM EDT Office Visit [address] [place] [address] Nikita Mireles PA-C [address] [place] [address] [place] [address] Karyna Aguirre, PT [address] [place] [address] 01/06/2025 10:00 AM EDT Office Visit [address] [place] [address] Nikita Mireles PA-C [address] [place] [address] [place] [address] [email or web address] Karyna Aguirre, PT [address] [place] [address] [email or web address] 01/11/2025 10:00 AM EST Office Visit [facility] [address] [place] [address] Nikita Mireles PA-C [address] [place] [address] [place] [address] [email or web address] Karyna Aguirre, PT [address] [place] [address] [email or web address] Health Maintenance Due Date Last Done Comments Adult Td,Tdap Booster 1986 DEPRESSION SCREENING 1998 HEPATITIS C SCREENING 2004 HIV ONE-TIME SCREENING (18-6 5 YEARS) 2004 PAP SMEAR 06/25/2007 INFLUENZA VACCINE (#1) 2024 COVID-19 VACCINE (2023-2 5 season) 2024 SCREENING FOR DIABETES 11/18/2027 11/17/2024 SMOKING STATUS SCREENING (On ce After 26 [...] this topic Medical Devices Implanted Type Area Production Specialist Device Identifier Shelf Expiration Date Model / Serial / Lot Breast Breast [place] All-Suture 1.8mm Q-Fix Knotless W/1 Ub Sut Bl - [id number] Implanted:Qty: 1 on 11/12/2024 by Jalen Sweeney DO at [facility] Right: Shoulder [employer] [id number] 07/18/2027 [id number] / / [id number] [place] All-Suture 2.8mm Q-Fix W/2 Minitape Suture Blue And Cobraid White - [id number] Implanted:Qty: 1 on 11/12/2024 by Jalen Sweeney, at [facility] Right: Shoulder [employer] 03/20/2027 [id number] / / [id number] [place] Suture 4.5mm Arthroscopy Reelx Stt Peek Ss Core Knotless Shapr Tip Expandable Bx/5ea - [id number] Implanted:Qty: 1 on 11/12/2024 by Jalen Sweeney DO at [facility] Right: Shoulder [employer] [id number] 07/28/2026 [id number] / / [id number] [place] Suture 4.5mm Arthroscopy Reelx Stt Peek Ss Core Knotless Shapr Tip Expandable Bx/5ea - [id number] Implanted:Qty: 1 on 11/12/2024 by Jalen Sweeney DO at [facility] Right: Shoulder [employer] [id number] 05/20/2026 [id number] / / [id number] Procedures Procedure Name Priority Date/Time Associated Diagnosis Comments BASIC METABOLIC PANEL STAT 11/17/2024 9:54 PM EDT CBC AND DIFFERENTIAL STAT 11/17/2024 9:54 PM EDT URINE SEDIMENT STAT 11/17/2024 9:50 PM EDT URINALYSIS W/REFLEX URINE CULTURE STAT 11/17/2024 9:50 PM EDT URINE CULTURE Routine 11/17/2024 9:50 PM EDT ECG 12-LEAD STAT 11/17/2024 6:50 PM EDT POCT GLUCOSE Routine 11/17/2024 6:37 PM EDT AIRWAY PLACEMENT Routine 11/12/2024 2:40 PM EDT SC SURGICAL ARTHROSCOPY SHOULDER XTNSV DBRDMT 3+ 11/12/2024 12:48 PM EDT Labral tear of long head of right biceps tendon, sequela Traumatic incomplete tear of right rotator cuff, sequela Special Needs 05/19 W/C approval in chart ok to schedule KP3/11 LM to schedule KP SC SHLDR ARTHROSCOP,PART ACROMIOPLAS 11/12/2024 12:48 PM EDT Labral tear of long head of right biceps tendon, sequela Traumatic incomplete tear of right rotator cuff, sequela Special Needs 05/19 W/C approval in chart ok to schedule KP3/ LM to schedule KP SC ARTHROSCOPY SHOULDER SURGICAL BICEPS TENODESIS 11/12/2024 12:48 PM EDT Labral tear of long head of right biceps tendon, sequela Traumatic incomplete tear of right rotator cuff, sequela Special Needs 05/19 W/C approval in chart ok to schedule KP05/19 LM to schedule KP SC SHLDR ARTHROSCOP,SURG,W/RO TAT CUFF REPR 11/12/2024 12:48 PM EDT Labral tear of long head of right biceps tendon, sequela Traumatic incomplete tear of right rotator cuff, sequela Special Needs 05/19 W/C approval in chart ok to schedule KP3 LM to schedule KP ANES BLOOD PATCH PERFORMABLE Routine 11/12/2024 12:25 PM EDT SC ANESTHESIA PERIPHERAL BLOCK PLACEHOLDER Routine 11/12/2024 12:25 [...] sequela from Last 3 Months Results * CBC and differential (11/17/2024 9:54 PM EDT) Only the most recent of2 resultswithin the time period is included. WBC 10.34 4.00 - 11.00 K/uL [facility] RBC 4.28 4.00 - 5.20 M/uL [facility] HGB 12.4 12.0 - 16.0 g/dL [facility] HCT 37.2 36.0 - 46.0 % [facility] PLT 335 150 - 450 K/uL [facility] MCV 86.9 80.0 - 100.0 fL [facility] MCH 29.0 27.0 - 31.0 pg [facility] MCHC 33.3 32.0 - 36.0 g/dL [facility] RDW 12.0 11.5 - 14.5 % [facility] MPV 10.7 8.4 - 12.0 fL [facility] NRBC 0.00 0.00 /100 WBCs [facility] ABSOLUTE NRBC 0.00 0.00 K/uL [facility] DIFF METHOD Auto [facility] NEUTS 65.5 48.0 - 76.0 % [facility] LYMPHS 27.9 18.0 - 41.0 % [facility] MONOS 5.8 4.0 - 11.0 % [facility] EOS 0.3 0.0 - 5.0 % [facility] BASOS 0.2 0.0 - 1.5 % [facility] Granulocytes, immature (%) 0.3 0.0 - 0.9 % [facility] ABSOLUTE NEUTS 6.77 1.92 - 7.60 K/uL [facility] ABSOLUTE LYMPHS 2.89 0.72 - 4.10 K/uL [facility] ABSOLUTE MONOS 0.60 0.16 - 1.10 K/uL [facility] ABSOLUTE EOS 0.03 0.00 - 0.50 K/uL [facility] ABSOLUTE BASOS 0.02 0.00 - 0.15 K/uL [facility] Granulocytes, immature 0.03 0.00 - 0.09 K/uL [facility] Blood 11/17/2024 9:54 PM EDT 11/17/2024 9:57 PM EDT Kale Cabrera MD LAB BLOOD ORDERABL ES Final Result Performing Organization Address City/[facility] Co de Phone Number [facility] [address] [place] [address] * Basic metabolic panel (11/17/2024 9:54 PM EDT) Only the most recent of2 resultswithin the time period is included. SODIUM 141 133 - 146 mmol/L [facility] CHLORIDE 106 96 - 108 mmol/L [facility] POTASSIUM 4.0 3.3 - 5.1 mmol/L [facility] CO2 23 21 - 35 mmol/L [facility] BUN 8 6 - 19 mg/dL [facility] CREATININE 0.50 0.5 - 1.5 mg/dL [facility] GLUCOSE 90 70 - 99 mg/dL [facility] CALCIUM 9.6 8.4 - 10.3 mg/dL [facility] EGFR >120 >59 mL/min/1.7 3m2 [facility] Comment:Estimated glomerular filtration rate calculated using the CKD-EPI refit equation. ANION GAP 16 10 - 20 mmol/L [facility] Blood 11/17/2024 9:54 PM EDT 11/17/2024 9:57 PM EDT us Kale Cabrera MD LAB BLOOD ORDERABL ES Final Result [address] [address] * (ABNORMAL) Urinalysis w/reflex Urine Culture (11/17/2024 9:50 PM EDT) COLOR Yellow Yellow [facility] CLARITY HAZY [facility] GLUCOSE Negative Negative [facility] BILI Negative Negative [facility] KETONES 1+(A) Negative [facility] SPECIFIC GRAVITY 1.015 1.005 - 1.030 [facility] BLOOD Trace(A) Negative [facility] PH 6.5 5.0 - 8.0 [facility] Protein-UA Negative Negative [facility] NITRITE Negative Negative [facility] Leukocyte esterase, ur 1+(A) Negative [facility] Urine (Urine) 11/17/2024 9:5 0 PM EDT 11/17/2024 10:11 PM EDT Kale Cabrera MD URINE ORDERABLES F inal Result Performing Organization Address [facility] Co de Phone Number [address] [address] * (ABNORMAL) Urine Culture (11/17/2024 9:50 PM EDT) Special Requests None Reflexed from [id number] 11/17/2024 10:31 PM EDT [facility] Urine Culture >100,000 colony forming units per mL MIXED JOSELINE (3 OR MORE COLONY TYPES) Culture indicates contamination . Please resubmit if necessary.(A) 11/19/2024 7:47 AM EDT [facility] Urine 11/17/2024 9:50 PM EDT 11/17/2024 10:11 PM EDT Kale Cabrera MD MICROBIOLOGY - GEN ERAL ORDERABLES Final Result Performing Organization Address [facility] Co de Phone Number [address] [address] * (ABNORMAL) Urine sediment (11/17/2024 9:50 PM EDT) WBC 11-20(A) NONE SEEN /hpf [facility] RBC 3-5(A) NONE SEEN /hpf [facility] URINE EPITHELIAL 21-49(A) NONE SEEN [facility] MUCUS 3+(A) NONE SEEN /hpf [facility] BACTERIA 2+(A) NONE SEEN /hpf [facility] 11/17/2024 9:50 PM EDT 11/17/2024 10:11 PM EDT us Kale Cabrera MD URINE ORDERABLES F inal Result Performing Organization Address City/[facility]/ZIP Co de Phone Number [address] [address] * ECG 12-LEAD (11/17/2024 6:50 PM EDT) Only the most recent of3 resultswithin the time period is included. Ventricular Rate EKG/MIN 113 BPM [facility] Atrial Rate 113 BPM [facility] SC Interval 116 ms [facility] QRS Duration 76 ms [facility] QT Interval 328 ms [facility] QTC Interval 449 ms [facility] P [place] 37 degrees [facility] R Wave [place] 53 degrees [facility] T Wave [place] 41 degrees [facility] 11/17/2024 6:50 PM EDT 11/19/2024 9:18 AM EDT Narrative [facility] - 11/19/2024 9:18 AM EDT Sinus tachycardia Otherwise normal ECG When compared with ECG of 08-Oct-2024 16:39, No significant change was found Confirmed by Phong Mendez ([id number]) on 11/19/2024 9:18:11 AM us Ezequiel Mathew MD ECG ORDERABLES Final Result Performing Organization Address City/[facility]/ZIP Co de Phone Number [facility] * (ABNORMAL) POCT Glucose (11/17/2024 6:37 PM EDT) Glucose, POCT 160(H) 70 - 100 mg/dL [facility] 11/17/2024 6:37 PM EDT 11/18/2024 2:22 AM EDT us Kale Cabrera MD POINT OF CARE TEST ORDERABLES Final Result [facility] [address] [place] [address] * ANES ETT DOUBLE LUMEN - AIRWAY LDA (11/12/2024 2:40 PM EDT) Narrative Dennise Rodriguez CRNA - 11/12/2024 2:40 PM EDT Dennise Rodriguez CRNA 11/12/2024 2:41 PM Airway Placement Procedure Note: Procedure performed by: fellow/resident/RADIO OPERATOR GROUND Anesthesiologist: May Camarillo MD Fellow/Resident/RADIO OPERATOR GROUND: Dennise Rodriguez CRNA Airway procedure initiated at:11/12/2024 2:40 PM and ended at. Personal Protective Equipment: Mask: surgical mask Eye Protection: eye shield Gloves: double gloves Gown: no gown Mask Ventilation: Quality: not attempted Airway Placement: Technique: LMA Rapid sequence induction: no LMA Insertion: LMA size: 3 LMA placement attempts: 1. Outcomes: Evidence of dental injury? no Complications observed? no us May Camarillo MD SC ANESTHESIA Final Resu lt * SC ANESTHESIA PERIPHERAL BLOCK PLACEHOLDER, ANES BLOOD PATCH PERFORMABLE (11/12/2024 12:25 PM EDT) Narrative Dennise Rodriguez CRNA - 11/12/2024 12:25 PM EDT Dennise Rodriguez CRNA 11/12/2024 12:47 PM Peripheral Block Placement Procedure Note: Start Time: 11/12/2024 12:25 PM Stop Time:11/12/2024 12:35 PM Reason for block: surgeon request and post op pain managment Block performed by: fellow/resident/RADIO OPERATOR GROUND Anesthesiologist: May Camarillo MD Fellow/Resident/RADIO OPERATOR GROUND: Dennise Rodriguez CRNA [place] Protocol Performed: consent obtained, patient identified with [...] 15 ml interscalene 5 ml intercostobrachial nerve Dennise Rodriguez CRNA SC ANESTHESIA F inal Result * HCG, urine (11/12/2024 10:19 AM EDT) URINE TEST Negative Negative [facility] Urine (Urine) 11/12/2024 10: 19 AM EDT 11/12/2024 10:22 AM EDT Jalen Sweeney DO URINE ORDERABLES Final Resu lt [facility] [address] [place] [address] * CT ABDOMEN/PELVIS (KIDNEY STONE) WITHOUT CONTRAST [...] clinician's provided indication for this examination in [facility]: *Flank pain, kidney stone suspected TECHNIQUE: Multidetector-row [...] IMG CT ABD/PELVIS Final Resu lt * HCG, serum qualitative (10/08/2024 1:04 PM EDT) HCG, QUALITATIVE Negative Negative IU/L [facility] Blood 10/08/2024 1:04 PM EDT 10/08/2024 1:16 PM EDT Result [facility] Kyle Pickens MD LAB BLOOD ORDERABLES Final Result Performing Organization Address [facility] Co de Phone Number [address] [address] * LFTs (hepatic panel) (10/08/2024 1:04 PM EDT) ALKALINE PHOSPHATASE 58 39 - 117 U/L [facility] TOTAL BILIRUBIN 0.6 0.0 - 1.2 mg/dL [facility] DIRECT BILIRUBIN 0.2 0.0 - 0.2 mg/dL [facility] Bilirubin (Indirect) 0.4 0 - 1.5 mg/dL [facility] AST 16 0 - 37 U/L [facility] ALT 13 0 - 40 U/L [facility] TOTAL PROTEIN 7.5 6.5 - 8.0 g/dL [facility] ALBUMIN 4.3 3.9 - 4.8 g/dL [facility] GLOBULIN 3.2 1 - 4.8 g/dL [facility] A/G Ratio 1.34 1.00 - 4.80 RATIO [facility] Blood 10/08/2024 1:04 PM EDT 10/08/2024 1:16 PM EDT Kyle Pickens MD LAB BLOOD ORDERABLES Final Result Performing Organization Address City/[facility]/ZIP Co de Phone Number [address] [address] * Lipase (10/08/2024 1:04 PM EDT) LIPASE 16 16 - 63 U/L [facility] Blood 10/08/2024 1:04 PM EDT 10/08/2024 1:16 PM EDT us Kyle Pickens MD LAB BLOOD ORDERABLES Final Result [facility] [address] [place] [address] from Last 3 Months Insurance [facility] [place] [address] [facility] [place] [address] [facility] [place] [address] [facility] Care Teams Supervisor Gluing Relationship Specialty Start Date End Date Pcp, Not Required [address] [place] [address] PCP - General 11/09/15 Additional Source Comments The information contained in this document represents components of the legal health record. It is not the complete legal health record.[facility]
--- OUTSIDE RECORDS SUMMARY | 2024-12-04 11:02 | XMS_ITS | Encounter Summary ---
Author Organization [facility] Address [address] [address] Phone Care Team Providers Care Efficiency Engineer Name Role Phone Pcp, Not Required Primary Care Provider Unavaila ble Encounter Details Date Type Department Care Team (Late st Contact Info) Description 09/17/2023 Procedure Pass [facility], [address] [place] [address] Social History Tobacco Use Types Packs/Day Years [...] Description 12/04/2024 2:30 PM EDT Office Visit [facility] Services [address] [place] [address] Nikita Mireles PA-C [address] [place] [address] [place] [address] Karyna Aguirre, PT 8 [place] [address] 12/07/2024 11:00 AM EDT Office Visit [facility] [address] [place] [address] Nikita Mireles PA-C [address] [place] [address] [place] [address] Kuldeep Dominguez, PT 8 [place] [address] 12/09/2024 10:15 AM EDT Office Visit [address] [place] [address] Nikita Mireles PA-C [address] [place] [address] [place] [address] Kuldeep Dominguez, PT 8 [place] [address] 12/16/2024 10:00 AM EDT Office Visit [address] [place] [address] Nikita Mireles PA-C [address] [place] [address] [place] [address] Karyna Aguirre, PT 8 [place] [address] 12/18/2024 11:30 AM EDT Office Visit [address] [place] [address] Nikita Mireles PA-C [address] [place] [address] [place] [address] Karyna Aguirre, PT 8 [place] [address] 12/23/2024 10:00 AM EDT Office Visit [address] [place] [address] Nikita Mireles PA-C [address] [place] [address] [place] [address] Karyna Aguirre, PT 8 [place] [address] 12/28/2024 10:00 AM EDT Office Visit [facility] 8 [place] [address] Nikita Mireles PA-C [address] [place] [address] [place] [address] Karyna Aguirre, PT 8 [place] [address] 12/30/2024 10:00 AM EDT Office Visit [facility] [address] [place] [address] Nikita Mireles PA-C [address] [place] [address] [place] [address] Karyna Aguirre, PT 8 [place] [address] 12/30/2024 11:15 AM EDT Office Visit [facility] Medicine [address] [place] [address] Jalen Sweeney DO [address] [place] [address] Orthopedics & Sports Medicine, [place] [address] 01/04/2025 10:00 AM EDT Office Visit [address] [place] [address] Nikita Mireles PA-C [address] [place] [address] [place] [address] Karyna Aguirre, PT 8 [place] [address] 01/06/2025 10:00 AM EDT Office Visit [address] [place] [address] Nikita Mireles PA-C [address] [place] [address] [place] [address] Karyna Aguirre, PT 8 [place] [address] 01/11/2025 10:00 AM EST Office Visit [address] [place] [address] Nikita Mireles PA-C [address] [place] [address] [place] [address] Karyna Aguirre, PT 8 [place] [address] documented as of this encounter Visit Diagnoses Not on filedocumented in this encounter Additional Health Concerns Infection Onset Date Last Indicated Resolved Time CoV-Risk 06/18/2024 06/18/2024 06/29/2024 1:23 AM EDT documented as of this encounter Care Teams Efficiency Engineer Relationship Specialty Start Date End Date Pcp, Not Required [address] [place] [address] PCP - General 11/09/15 documented as of this encounter Additional Source Comments The information contained in this document represents components of the legal health record. It is not the complete legal health record.[facility]
--- OUTSIDE RECORDS SUMMARY | 2024-12-04 11:02 | XMS_ITS | Encounter Summary ---
Author Organization [facility] Address [address] [email or web address] [facility] [address] [place] [address] Phone Care Team Providers Care Milk Runner Name Role Phone Pcp, Not Required Primary Care Provider Unavaila ble Encounter Details Date Type Department Care Team (Late st Contact Info) Description 11/22/2023 Procedure Pass [facility], Ct Scan - [address] [address] Social History Tobacco Use Types Packs/Day Years [...] 10:32 PM EDT Franchesca Parikh RN * [place] Suicide Severity Rating Scale (Screener/Recent Self-Report) Question [...] Description 12/04/2024 2:30 PM EDT Office Visit [address] [place] [address] Nikita Mireles PA-C [address] [place] [address] [place] [address] Karyna Aguirre, PT 8 [place] [address] 12/07/2024 11:00 AM EDT Office Visit [address] [place] [address] Nikita Mireles PA-C [address] [place] [address] [place] [address] Kuldeep Dominguez, PT 8 [place] [address] 12/09/2024 10:15 AM EDT Office Visit [address] [place] [address] Nikita Mireles PA-C [address] [place] [address] [place] [address] Kuldeep Dominguez, PT 8 [place] [address] 12/16/2024 10:00 AM EDT Office Visit [address] [place] [address] Nikita Mireles PA-C [address] [place] [address] [place] [address] Karyna Aguirre, PT 8 [place] [address] 12/18/2024 11:30 AM EDT Office Visit [address] [place] [address] Nikita Mireles PA-C [address] [place] [address] [place] [address] Karyna Aguirre, PT 8 [place] [address] 12/23/2024 10:00 AM EDT Office Visit [address] [place] [address] Nikita Mireles PA-C [address] [place] [address] [place] [address] Karyna Aguirre, PT 8 [place] [address] 12/28/2024 10:00 AM EDT Office Visit [facility] [address] [place] [address] Nikita Mireles PA-C [address] [place] [address] [place] [address] Karyna Aguirre, PT 8 [place] [address] 12/30/2024 10:00 AM EDT Office Visit [facility] [address] [place] [address] Nikita Mireles PA-C [address] [place] [address] [place] [address] Karyna Aguirre, PT 8 [place] [address] 12/30/2024 11:15 AM EDT Office Visit [facility] Orthopedics & Sports Medicine [address] [place] [address] Jalen Sweeney DO [address] [place] [address] Orthopedics & Sports Medicine, [facility] [address] 01/04/2025 10:00 AM EDT Office Visit [address] [place] [address] Nikita Mireles PA-C [address] [place] [address] [place] [address] Karyna Aguirre, PT 8 [place] [address] 01/06/2025 10:00 AM EDT Office Visit [facility] [address] [place] [address] Nikita Mireles PA-C [address] [place] [address] [place] [address] Karyna Aguirre, PT 8 [place] [address] 01/11/2025 10:00 AM EST Office Visit [facility] [address] [place] [address] Nikita Mireles PA-C [address] [place] [address] [place] [address] Karyna Aguirre, PT 8 [place] [address] documented as of this encounter Visit Diagnoses Not on filedocumented in this encounter Additional Health Concerns Infection Onset Date Last Indicated Resolved Time CoV-Risk 06/18/2024 06/18/2024 06/29/2024 1:23 AM EDT documented as of this encounter Care Teams Milk Runner Relationship Specialty Start Date End Date Pcp, Not Required [address] [place] [address] PCP - General 11/09/15 documented as of this encounter Additional Source Comments The information contained in this document represents components of the legal health record. It is not the complete legal health record.[facility]
--- OUTSIDE RECORDS SUMMARY | 2024-12-04 11:03 | XMS_ITS | Encounter Summary ---
Author Organization [facility] Address [address] [employer] [facility] [address] [place] [address] Phone Care Team Providers Care Religious Studies Professor Name Role Phone Pcp, Not Required Primary Care Provider Unavaila ble Encounter Details Date Type Department Care Team (Late st Contact Info) Description 07/12/2024 Procedure Pass [facility], Ct Scan - [address] [address] Social History Tobacco Use Types Packs/Day Years [...] 7:11 AM EDT Amor Gross RN * [place] Suicide Severity Rating Scale (Screener/Recent Self-Report) Question [...] Description 12/04/2024 2:30 PM EDT Office Visit [facility] [address] [place] [address] Nikita Mireles PA-C [address] [place] [address] [place] [address] Karyna Aguirre, PT 8 [place] [address] 12/07/2024 11:00 AM EDT Office Visit [facility] [address] [place] [address] Nikita Mireles PA-C [address] [place] [address] [place] [address] Kuldeep Dominguez, PT 8 [place] [address] 12/09/2024 10:15 AM EDT Office Visit [address] [place] [address] Nikita Mireles PA-C [address] [place] [address] [place] [address] Kuldeep Dominguez, PT 8 [place] [address] 12/16/2024 10:00 AM EDT Office Visit [address] [place] [address] Nikita Mireles PA-C [address] [place] [address] [place] [address] Karyna Aguirre, PT 8 [place] [address] 12/18/2024 11:30 AM EDT Office Visit [address] [place] [address] Nikita Mireles PA-C [address] [place] [address] [place] [address] Karyna Aguirre, PT 8 [place] [address] 12/23/2024 10:00 AM EDT Office Visit [address] [place] [address] Nikita Mireles PA-C [address] [place] [address] [place] [address] Karyna Aguirre, PT 8 [place] [address] 12/28/2024 10:00 AM EDT Office Visit [address] [place] [address] Nikita Mireles PA-C [address] [place] [address] [place] [address] Karyna Aguirre, PT 8 [place] [address] 12/30/2024 10:00 AM EDT Office Visit [facility] [address] [place] [address] Nikita Mireles PA-C [address] [place] [address] [place] [address] Karyna Aguirre, PT 8 [place] [address] 12/30/2024 11:15 AM EDT Office Visit [facility] Orthopedics & Sports Medicine [address] [place] [address] Jalen Sweeney DO [address] [place] [address] Orthopedics & Sports Medicine, [facility] [place] [address] 01/04/2025 10:00 AM EDT Office Visit [facility] [address] [place] [address] Nikita Mireles PA-C [address] [place] [address] [place] [address] Karyna Aguirre, PT 8 [place] [address] 01/06/2025 10:00 AM EDT Office Visit [facility] [address] [place] [address] Nikita Mireles PA-C [address] [place] [address] [place] [address] Karyna Aguirre, PT 8 [place] [address] 01/11/2025 10:00 AM EST Office Visit [facility] [address] [place] [address] Nikita Mireles PA-C [address] [place] [address] [place] [address] Karyna Aguirre, PT 8 [place] [address] documented as of this encounter Visit Diagnoses Not on filedocumented in this encounter Care Teams Religious Studies Professor Relationship Specialty Start Date End Date Pcp, Not Required [address] [place] [address] PCP - General 11/09/15 documented as of this encounter Additional Source Comments The information contained in this document represents components of the legal health record. It is not the complete legal health record.[facility]
--- OUTSIDE RECORDS SUMMARY | 2024-12-04 11:03 | XMS_ITS | Encounter Summary ---
Author Organization [facility] Address [address] [employer] [facility] [address] [place] [address] Phone Care Team Providers Care Block Handler Name Role Phone Pcp, Not Required Primary Care Provider Unavaila ble Encounter Details Date Type Department Care Team (Late st Contact Info) Description 08/08/2024 Procedure Pass [facility], Ct Scan - [address] [address] Social History Tobacco Use Types Packs/Day Years [...] 10:51 PM EDT Dallin Pretty RN * [place] Suicide Severity Rating Scale (Screener/Recent Self-Report) Question [...] Description 12/04/2024 2:30 PM EDT Office Visit [facility] [address] [place] [address] Nikita Mireles PA-C [address] [place] [address] [place] [address] Karyna Aguirre, PT 8 [place] [address] 12/07/2024 11:00 AM EDT Office Visit [facility] [address] [place] [address] Nikita Mireles PA-C [address] [place] [address] [place] [address] Kuldeep Dominguez, PT 8 [place] [address] 12/09/2024 10:15 AM EDT Office Visit [address] [place] [address] Nikita Mireles PA-C [address] [place] [address] [place] [address] Kuldeep Dominguez, PT 8 [place] [address] 12/16/2024 10:00 AM EDT Office Visit [address] [place] [address] Nikita Mireles PA-C [address] [place] [address] [place] [address] Karyna Aguirre, PT 8 [place] [address] 12/18/2024 11:30 AM EDT Office Visit [address] [place] [address] Nikita Mireles PA-C [address] [place] [address] [place] [address] Karyna Aguirre, PT 8 [place] [address] 12/23/2024 10:00 AM EDT Office Visit [address] [place] [address] Nikita Mireles PA-C [address] [place] [address] [place] [address] Karyna Aguirre, PT 8 [place] [address] 12/28/2024 10:00 AM EDT Office Visit [address] [place] [address] Nikita Mireles PA-C [address] [place] [address] [place] [address] Karyna Aguirre, PT 8 [place] [address] 12/30/2024 10:00 AM EDT Office Visit [facility] [address] [place] [address] Nikita Mireles PA-C [address] [place] [address] [place] [address] Karyna Aguirre, PT 8 [place] [address] 12/30/2024 11:15 AM EDT Office Visit [facility] Orthopedics & Sports Medicine [address] [place] [address] Jalen Sweeney DO [address] [place] [address] Orthopedics & Sports Medicine, [place] [address] 01/04/2025 10:00 AM EDT Office Visit [facility] [address] [place] [address] Nikita Mireles PA-C [address] [place] [address] [place] [address] Karyna Aguirre, PT 8 [place] [address] 01/06/2025 10:00 AM EDT Office Visit [facility] [address] [place] [address] Nikita Mireles PA-C [address] [place] [address] [place] [address] Karyna Aguirre, PT 8 [place] [address] 01/11/2025 10:00 AM EST Office Visit [facility] [address] [place] [address] Nikita Mireles PA-C [address] [place] [address] [place] [address] Karyna Aguirre, PT 8 [place] [address] documented as of this encounter Visit Diagnoses Not on filedocumented in this encounter Care Teams Block Handler Relationship Specialty Start Date End Date Pcp, Not Required [address] [place] [address] PCP - General 11/09/15 documented as of this encounter Additional Source Comments The information contained in this document represents components of the legal health record. It is not the complete legal health record.[facility]
--- OUTSIDE RECORDS SUMMARY | 2024-12-04 11:03 | XMS_ITS | Encounter Summary ---
Author Organization [facility] Address [address] [employer] [facility] [address] [place] [address] Phone Care Team Providers Care Medical Or Surgical Instrument Maker Name Role Phone Pcp, Not Required Primary Care Provider Unavaila ble Encounter Details Date Type Department Care Team (Late st Contact Info) Description 02/22/2024 Procedure Pass [facility], Ct Scan - [address] [address] Social History Tobacco Use Types Packs/Day Years [...] 02/22/2024 1:48 AM Teresa Hernandez RN * [place] Suicide Severity Rating Scale (Screener/Recent Self-Report) Question Answer Date of Assessment Author 1. Wish to be (Past 1 Month) No 02/22/2024 1:48 AM Teresa Bedner RN 2. Non-Specific Active Suicidal Thoughts (Past 1 Month) No 02/22/2024 1:48 AM Teresa Bender RN 6. Suicidal Behavior (Lifetime) No 02/22/2024 1:48 AM Teresa Bender RN documented as of this encounter Plan of Treatment Upcoming Encounters Date Type Department Care Team (Late st Contact Info) Description 12/04/2024 2:30 PM EDT Office Visit [facility] [address] [place] [address] Nikita Mireles PA-C [address] [place] [address] [place] [address] [email or web address] Karyna Aguirre, PT 8 [place] [address] 12/07/2024 11:00 AM EDT Office Visit [facility] [address] [place] [address] Nikita Mireles PA-C [address] [place] [address] [place] [address] Kuldeep Dominguez, PT 8 [place] [address] [email or web address] 12/09/2024 10:15 AM EDT Office Visit [facility] [address] [place] [address] Nikita Mireles PA-C [address] [place] [address] [place] [address] Kuldeep Dominguez, PT 8 [place] [address] 12/16/2024 10:00 AM EDT Office Visit [address] [place] [address] Nikita Mireles PA-C [address] [place] [address] [place] [address] Karyna Aguirre, PT 8 [place] [address] 12/18/2024 11:30 AM EDT Office Visit [facility] [address] [place] [address] Nikita Mireles PA-C [address] [place] [address] [place] [address] Karyna Aguirre, PT 8 [place] [address] 12/23/2024 10:00 AM EDT Office Visit [facility] [address] [place] [address] Nikita Mireles PA-C [address] [place] [address] [place] [address] [email or web address] Karyna Aguirre, PT 8 [place] [address] 12/28/2024 10:00 AM EDT Office Visit [address] [place] [address] Nikita Mireles PA-C [address] [place] [address] [place] [address] Karyna Aguirre, PT 8 [place] [address] 12/30/2024 10:00 AM EDT Office Visit [address] [place] [address] Nikita Mireles PA-C [address] [place] [address] [place] [address] Karyna Aguirre, PT 8 [place] [address] 12/30/2024 11:15 AM EDT Office Visit [facility] Orthopedics & Sports Medicine [address] [place] [address] Jalen Sweeney DO [address] [place] [address] Orthopedics & Sports Medicine, [facility] [place] [address] 01/04/2025 10:00 AM EDT Office Visit [address] [place] [address] Nikita Mireles PA-C [address] [place] [address] [place] [address] Karyna Aguirre, PT 8 [place] [address] 01/06/2025 10:00 AM EDT Office Visit [facility] [address] [place] [address] Nikita Mireles PA-C [address] [place] [address] [place] [address] [email or web address] Karyna Aguirre, PT 8 [place] [address] 01/11/2025 10:00 AM EST Office Visit [facility] [address] [place] [address] Nikita Mireles PA-C [address] [place] [address] [place] [address] [email or web address] Karyna Aguirre, PT 8 [place] [address] documented as of this encounter Visit Diagnoses Not on filedocumented in this encounter Additional Health Concerns Infection Onset Date Last Indicated Resolved Time CoV-Risk 06/18/2024 06/18/2024 06/29/2024 1:23 AM EDT documented as of this encounter Care Teams Medical Or Surgical Instrument Maker Relationship Specialty Start Date End Date Pcp, Not Required [address] [place] [address] PCP - General 11/09/15 documented as of this encounter Additional Source Comments The information contained in this document represents components of the legal health record. It is not the complete legal health record.[facility]
--- OUTSIDE RECORDS SUMMARY | 2024-12-04 11:04 | XMS_ITS | Encounter Summary ---
Author Organization [facility] Address [address] [place] [address] Phone Care Team Providers Care Manager Payer Name Role Phone Pcp, Not Required Primary Care Provider Unavaila ble Encounter Details Date Type Department Care Team (Late st Contact Info) Description 10/08/2024 Procedure Pass [facility], Ct Scan - [address] [address] Social History Tobacco Use Types Packs/Day Years [...] 12:28 PM EDT Ana Gonzalez, YOLANDA * [place] Suicide Severity Rating Scale (Screener/Recent Self-Report) Question [...] Description 12/04/2024 2:30 PM EDT Office Visit [facility] Rehabilitation Services [address] [place] [address] [place] [address] Nikita Mireles PA-C [address] [place] [address] Karyna Aguirre, PT 8 [place] [address] 12/07/2024 11:00 AM EDT Office Visit [facility] [address] [place] [address] iNkita Mireles PA-C [address] [place] [address] [place] [address] [email or web address] Kuldeep Dominguez, PT 8 [place] [address] [email or web address] 12/09/2024 10:15 AM EDT Office Visit [address] [place] [address] Nikita Mireles PA-C [address] [place] [address] [place] [address] Kuldeep Dominguez, PT 8 [place] [address] 12/16/2024 10:00 AM EDT Office Visit [address] [place] [address] Nikita Mireles PA-C [address] [place] [address] [place] [address] Karyna Aguirre, PT 8 [place] [address] 12/18/2024 11:30 AM EDT Office Visit [address] [place] [address] Nikita Mireles PA-C [address] [place] [address] [place] [address] Karyna Aguirre, PT 8 [place] [address] 12/23/2024 10:00 AM EDT Office Visit [facility] [address] [place] [place] [address] Nikita Mireles PA-C [address] [place] [address] [place] [address] Karyna Aguirre, PT 8 [place] [address] 12/28/2024 10:00 AM EDT Office Visit [address] [address] Nikita Mireles PA-C [address] [place] [address] [place] [address] Karyna Aguirre, PT 8 [place] [address] [email or web address] 12/30/2024 10:00 AM EDT Office Visit [address] [place] [address] Nikita Mireles PA-C [address] [place] [address] [place] [address] Karyna Aguirre, PT 8 [place] [address] 12/30/2024 11:15 AM EDT Office Visit [facility] Orthopedics & Sports Medicine [address] [place] [address] Jalen Sweeney DO [address] [place] [address] Orthopedics & Sports Medicine, [place] [address] [email or web address] 01/04/2025 10:00 AM EDT Office Visit [address] [place] [address] Nikita Mireles PA-C [address] [place] [address] [place] [address] [email or web address] Karyna Aguirre, PT 8 [place] [address] 01/06/2025 10:00 AM EDT Office Visit [address] [place] [address] Nikita Mireles PA-C [address] [place] [address] [place] [address] [email or web address] Karyna Aguirre, PT 8 [place] [address] 01/11/2025 10:00 AM EST Office Visit [address] [place] [address] Nikita Mireles PA-C [address] [place] [address] [place] [address] Karyna Aguirre, PT 8 [place] [address] [email or web address] documented as of this encounter Visit Diagnoses Not on filedocumented in this encounter Care Teams Manager Payer Relationship Specialty Start Date End Date Pcp, Not Required [address] [place] [address] PCP - General 11/09/15 documented as of this encounter Additional Source Comments The information contained in this document represents components of the legal health record. It is not the complete legal health record.[facility]
--- NOTE | 2024-12-04 11:53 | ED_ITS ---
HPI - Abdominal Pain General Chief Complaint: Abdominal Pain Stated Complaint: vomiting, abd pain Time Seen by Provider: 12/04/24 10:37 Source: patient, RN notes reviewed and old records reviewed Mode of arrival: ambulatory Limitations: no limitations History of Present Illness ED Provider: ARMANDO Adams HPI narrative: 39-year-old female with medical history of kidney stones, medullary sponge kidney presents to the ED due to 1 day of right-sided flank pain with nausea vomiting and chills. Patient states she woke up with symptoms and has vomited multiple times. Patient had rotator cuff surgery on 11/12/2024 Related Data Previous Rx's ?Medication ?Instructions ?Recorded oxycodone 5 mg capsule 5 mg PO Q6H PRN severe pain (scale 09/23/23 score 7-10) #8 caps ondansetron 4 mg disintegrating 4 mg PO Q6-8H PRN naus ea and 01/19/24 tablet vomiting #7 tabs oxycodone-acetaminophen 5 mg-325 1 tab PO Q6H PRN pain #20 tabs 01/19/24 mg tablet (Percocet) tamsulosin 0.4 mg capsule (Flomax) 0.4 mg PO BEDTIME # 10 caps 01/19/24 ketorolac 10 mg tablet 10 mg PO TID PRN pain #12 ta bs 02/23/24 ondansetron 4 mg disintegrating 4 mg PO Q6H PRN nausea and 02/23/24 tablet vomiting #14 tabs prednisone 20 mg tablet 20 mg PO DAILY #3 tabs 02/22 tamsulosin 0.4 mg capsule 0.4 mg PO DAILY #20 caps hydromorphone 4 mg tablet 4 mg PO Q6H PRN pain #14 tab s 11/13/24 (Dilaudid) naproxen 500 mg tablet 500 mg PO BID #14 tabs 12/04 ondansetron HCl 4 mg tablet 4 mg PO Q8H PRN nausea and 12/04/24 vomiting #12 tabs oxycodone 5 mg capsule 5 mg PO Q8H PRN pain #9 caps 12/04/24 prednisone 20 mg tablet 20 mg PO DAILY #7 tabs 12/04 tamsulosin 0.4 mg capsule (Flomax) 0.4 mg PO DAILY #14 caps 12/04/24 Allergies Allergy/AdvReac Type Severity Reaction Status Date / Time Iodinated Contrast Media Allergy Hives Verified 12/04/24 09:31 (Contrast Dye) Review of Systems Review of Systems CONST: Negative for fever, body aches. POS chills HENT: Negative for neck pain/stiffness, headache, congestion, sore throat, swelling. EYES: Negative for discharge/pain or vision changes. RESP: Negative for cough/hemoptysis and shortness of breath. CV: Negative chest pain, difficulty breathing, palpitations. ABD: POS R sided flank pain, nausea, vomiting. : Negative increase frequency, dysuria, blood in urine or stool. MUSC: Negative for muscle aches, edema. SKIN: Negative rash, lesions/sores. NEURO: Negative headache, dizziness, weakness. Yes all other systems are reviewed and are negative [facility] Past Medical History Attestation statement: The following information was validated with the patient. Source: old records reviewed and nursing notes reviewed Medical History Kidney stone Medullary sponge kidney Social History Social History Smoked in Last 30 Days: No Use of substances other than those prescribed or required for medical reasons: No Advance Directives: No Advance Directives Information Provided: Yes Patient : No Physical Exam ED Vital Signs: Vital Signs - 24 hr 12/04/24 09:27 12/04/24 10:20 12/04/24 11:32 Temperature 98.6 F Pulse Rate 98 101 H 117 H Respiratory Rate 16 22 H Blood Pressure 132/72 121/77 Pulse Oximetry 97 98 98 Oxygen Delivery Method Room Air Room Air Room Air 12/04/24 11:44 12/04/24 13:58 12/04/24 17:03 Temperature 98.8 F 98.3 F Pulse Rate 98 84 Respiratory Rate 16 8 L Blood Pressure 119/85 127/92 H 115/76 Pulse Oximetry 100 99 Oxygen Delivery Method Room Air Room Air BMI result Body Mass Index 25.9 GENERAL APPEARANCE: ?AxOx4, generally well-appearing, no acute distress. HEENT: ?NC, AT. MMM. EOMI, clear conjunctiva, oropharynx clear. NECK: ?Supple without lymphadenopathy.? No stiffness or restricted ROM. HEART:? Normal rate and regular rhythm, normal S1/S2, no m/r/g LUNGS:? CTAB, moving air well. No crackles or wheezes are heard. ABDOMEN: ?Soft, nontender, nondistended, negative murphys sign, no rebound tenderness BACK: No CVAT, no obvious deformity. Significant TTP of R flank, no overlying skin changes, ecchymosis or rash noted. EXTREMITIES: ?Without cyanosis, clubbing or edema. NEUROLOGICAL: ?Grossly nonfocal. Alert and oriented, moving all 4 extremities. Skin: ?Warm and dry without any rash. Medical Decision Making Medical Decision Making [facility] Narrative: 39-year-old female with medical history of kidney stones, medullary sponge kidney presents to the ED due to 1 day of right-sided flank pain with nausea vomiting and chills, states this pain is similar to previous kidney stone pain. Labs without leukocytosis/leukopenia, H&H stable, no electrolyte abnormality. Viral serology negative. UA reveals 1+ protein, 1+ urine blood, trace leukocyte esterase, 6-10 urine WBCs, 0-5 urine WBCs, 3-5 squamous epithelial cells, urine bacteria. Patient without increased urinary frequency, dysuria, no indication for antibiotics at this time. Patient has been medicated with 1 L fluids, 4 mg morphine x2, 4 mg Zofran without effect on nausea. Will trial 10 mg IV Reglan, 25 mg IV Benadryl for nausea. Awaiting UA and CT abdomen without contrast due to contrast allergy for further evalutaion. CT abdomen pelvis reveals a stone in the mid upper upper kidney measuring 6 x 9 mm, stone in the mid to lower right kidney measuring 7 x 10 mm, with a 1 mm stone in the distal right ureter near the UVJ with minimal hydroureter. Patient's pain and nausea has been controlled after being medicated. Patient will be discharged home with 7 day course of 20 mg prednisone, 2 weeks of Flomax, Zofran for nausea, Naprosyn and oxycodone for pain relief, with referral to urology. I discussed the results with the patient, she feels well enough to go home for self-care, and is in agreement with the plan. Differential Diagnosis Differential Diagnoses: The differential diagnosis associated with the presentation includes Obstructive nephrolithiasis Gastritis Electrolyte abnormality Viral illness COVID Flu Admission/Observation Consideration of admission/observation: Escalation of care including admission/observation considered Lab Data [facility] Lab Attestation statement: I reviewed the patient's lab results. 12/04/24 10:05 12/04/24 10:05 Labs: Lab Results 12/04/24 12/04/24 Range/Units 10:05 16:50 WBC 9.0 (4.8-10.8) X10*3/uL RBC 4.30 (4.20-5.50) X10*6/uL Hgb 12.3 (12.0-16.0) g/dl Hct 36.4 L (37.0-47.0) % MCV 84.7 (80.0-98.0) fL MCH 28.6 (27.0-33.0) pg MCHC 33.8 (31.0-35.0) g/dl RDW 12.6 (11.0-16.0) % Plt Count 380 D (160-400) X10*3/uL MPV 11.1 (9.4-12.3) fL Immature Gran % (Auto) 0.4 (0.0-0.4) % Neut % (Auto) 69.8 (45-73) % Lymph % (Auto) 23.2 (20-40) % [place] % (Auto) 5.7 (2-11) % Eos % (Auto) 0.7 (0-4) % Baso % (Auto) 0.2 (0-2) % Lymph # (Auto) 2.1 (1.2-4.9) X10*3/uL [place] # (Auto) 0.5 (0.1-1.2) X10*3/uL Eos # (Auto) 0.1 (0.0-0.4) X10*3/uL Baso # (Auto) 0.0 (0.0-0.2) X10*3/uL Abs Immat Gran (auto) 0.04 H (0.00-0.03) X10*3/uL Absolute Neuts (auto) 6.3 (2.0-8.3) x10*3/uL Absolute Nucleated RBC 0.000 (0.0-0.012) X10*3/uL Nucleated RBC % (auto) 0.0 (0.0-0.2) /100WBC Sodium 141 (135-145) mmol/L Potassium 3.7 (3.3-5.1) mmol/L Chloride 110 H (96-108) mmol/L Carbon Dioxide 23 (22-29) mmol/L Anion Gap 12 (12-20) BUN 10 (9-16) mg/dL Creatinine 0.61 (0.5-1.4) mg/dL Estim Creat Clear Calc 127.6 Estimated GFR > 60 Random Glucose 117 H (60-115) mg/dL Calcium 9.5 (8.4-10.2) mg/dL Magnesium 1.8 (1.6-2.6) mg/dL Total Bilirubin 1.0 (0.0-1.0) mg/dL AST 18 (5-31) U/L ALT 14 (0-31) U/L Alkaline Phosphatase 69 (39-117) U/L Total Protein 7.3 (6.5-8.0) g/dL Albumin 4.4 (3.5-5.0) g/dL Lipase 17 (8-78) U/L Beta HCG, Quant < 2 mIU/mL Urine Color Yellow Urine Appearance Clear Urine pH 7.0 (5.0-9.0) Ur Specific [place] 1.015 (1.005-1.025) Urine Protein 30 (1+) H (Neg-Trace) mg/dL Urine Glucose (UA) Negative (Negative) mg/dL Urine Ketones Negative (Negative) mg/dL Urine Blood Small (1+) H (Negative) Urine Nitrite Negative (Negative) Ur Leukocyte Esterase Trace H (Negative) Urine RBC 6-10 H (0-2) /HPF Urine WBC 0-5 (0-5) /HPF Ur Squamous Epith Cells 3-5 (0-2) /HPF Urine Bacteria Trace (None Seen) Hyaline Casts 0-2 (0-2) /LPF COVID-19 (ANNAMARIE) Negative (Negative) COVID-19 Clin Com See Note Influenza Type A (CRISTINA) Negative (Negative) Influenza Type B (CRISTINA) Negative (Negative) Influenza A & B Note See Note Independent Interpretation I performed an independent interpretation of an: CT Scan Interpretation: I personally interpreted the CT abdomen and pelvis which reveals nephrolithiasis, and small stone in the right ureter, I agree with the radiologist's interpretation Radiology Impression Discussion of test interpretation with radiology: I have reviewed the radiologist's reading. Radiologist Impression: CT abdomen and pelvis FINDINGS: LUNG BASES: The visualized lung bases are unremarkable. LIVER, GALLBLADDER, AND BILIARY TREE: The liver is normal in size, shape, and attenuation. No focal hepatic lesion or biliary ductal dilatation is present. The gallbladder is unremarkable with no evidence of radiopaque gallstones, gallbladder wall thickening, or obvious pericholecystic inflammatory changes. PANCREAS: Unremarkable. SPLEEN: Unremarkable. ADRENAL GLANDS: Unremarkable. KIDNEYS AND URETERS: There are 3 stones in the left kidney. The largest is 4 x 7 mm. This represents an increase of 1 stone since the prior There are 3 stones in the right kidney, previously 2. Stone in the mid to upper kidney measures 6 x 9 mm and was not present on the prior. Stone in the mid to lower right kidney measures 7 x 10 mm, previously 7 x 9 mm. There appears to be 1 mm stone in the distal right ureter near the ureterovesicular junction. There is minimal hydroureter. BLADDER: Unremarkable. GASTROINTESTINAL TRACT: The small and large bowel are unremarkable. The appendix is unremarkable. ABDOMINAL WALL: No significant hernia is appreciated. Bilateral breast implies grossly intact. LYMPH NODES: Normal. VASCULAR: Unremarkable. PELVIC VISCERA: Unremarkable. OSSEOUS STRUCTURES: There is mild levoscoliosis in the thoracal lumbar spine. CT/CT abdomen pelvis wo IV con IMPRESSION: 1 mm stone in the distal right ureter near the ureterovesicular junction with minimal hydroureter. Increasing stone burden since CT February 2024 Fleischner guidelines were followed. Electronically signed by: Rolando Guzman MD 12/04/2024 04:24 PM EDT RP Dictated By: Rolando Guzman MD Signed By: <Electronically signed by Rolando Guzman MD in OV> 12/04/24 1624 External Record Review External record reviewed: Inpatient record, Office record and Outpatient record Chronic Conditions Patient?s care impacted by: Other (Kidney stone) Medications Administered Discontinued Medications Generic Name Dose Route Start Last Admin Trade Name Freq PRN Reason Stop Dose Admin Diphenhydramine HCl 25 mg 12/04/24 14:27 12/04/24 14:35 Diphenhydramine Hcl 50 Mg/Ml Vial IVPUSH 12/04/24 14:28 25 mg ONCE ONE Administration Lactated Ringer's 1,000 mls @ 999 mls/hr 12/04/24 11:53 12/04/24 13:19 Lr IV 12/04/24 12:53 Infused .Q1H1M ONE Infusion Acetaminophen 1,000 mg in 100 mls @ 400 mls/hr 12/04/24 16:40 12/04/24 16:52 Ofirmev IV 12/04/24 16:54 400 mls/hr ONCE ONE Administration Ketorolac Tromethamine 15 mg 12/04/24 16:40 12/04/24 16:52 Ketorolac Tromethamine 15 Mg/Ml Vial IVPUSH 12/04/24 16:41 15 mg ONCE ONE Administration Metoclopramide HCl 10 mg 12/04/24 14:19 12/04/24 14:35 Metoclopramide Hcl 10 Mg/2 Ml Vial IVPUSH 12/04/24 14:20 10 mg ONCE ONE Administration Morphine Sulfate 4 mg 12/04/24 11:53 12/04/24 12:18 Morphine Sulfate 4 Mg/Ml Cartridge IVPUSH 12/04/24 11:54 4 mg ONCE ONE Administration Protocol Morphine Sulfate 4 mg 12/04/24 13:52 12/04/24 14:12 Morphine Sulfate 4 Mg/Ml Cartridge IVPUSH 12/04/24 13:53 4 mg ONCE ONE Administration Protocol Ondansetron HCl 4 mg 12/04/24 11:53 12/04/24 12:18 Ondansetron Hcl 4 Mg/2 Ml Vial IVPUSH 12/04/24 11:54 4 mg ONCE ONE Administration Discharge Plan Discharge Clinical Impression: Kidney stone on right side Patient Disposition: Home, Self-Care Instructions: Kidney Stones (ED), How to Strain Your Urine (ED) Additional Instructions: You were evaluated in the emergency department today for right-sided abdominal pain. Your lab work was negative for signs of infection. Your urine revealed a small amount of blood and protein, with trace bacteria however this is most likely due to natural tita, without indication of antibiotics at this time. The CT abdomen and pelvis revealed 3 stones in the right kidney with 1 of them being very small at 1 mm in the right ureter. You are being prescribed 7 day course of 20 mg prednisone, 2 week course of Flomax, Zofran for nausea, with Naprosyn and oxycodone that you can use for breakthrough pain. I have placed a referral to Urology for you, follow up with their office. [facility] will be contacting you within 2 business?days after being discharged from the Emergency?Department.? During this?phone call, they will inform you when your follow up appointment will be scheduled. If you have not received a call from [facility] after 2 business?days, please call the?office at [phone]. Please return to the emergency department if you experience worsening right- sided abdominal pain, pain with urination, difficulty urinating, unable to urinate, chest pain, shortness breast, fevers over 100.4?, or any new/worsening/concerning symptoms Prescriptions: New prednisone 20 mg tablet 20 mg PO DAILY Qty: 7 0RF ondansetron HCl 4 mg tablet 4 mg PO Q8H PRN (Reason: nausea and vomiting) Qty: 12 0RF tamsulosin [Flomax] 0.4 mg capsule 0.4 mg PO DAILY Qty: 14 0RF oxycodone 5 mg capsule 5 mg PO Q8H PRN (Reason: pain) Qty: 9 0RF Rx Instructions: Partial Fill upon patient request. naproxen 500 mg tablet 500 mg PO BID Qty: 14 0RF No Action hydromorphone [Dilaudid] 4 mg tablet 4 mg PO Q6H PRN (Reason: pain) Qty: 14 0RF Rx Instructions: Partial Fill upon patient request. oxycodone 5 mg capsule 5 mg PO Q6H PRN (Reason: severe pain (scale score 7-10)) Qty: 8 0RF Rx Instructions: Partial Fill upon patient request. oxycodone-acetaminophen [Percocet] 5-325 mg tablet 1 tab PO Q6H PRN (Reason: pain) Qty: 20 0RF Rx Instructions: Partial Fill upon patient request. ondansetron 4 mg tablet,disintegrating 4 mg PO Q6-8H PRN (Reason: nausea and vomiting) Qty: 7 0RF tamsulosin [Flomax] 0.4 mg capsule 0.4 mg PO BEDTIME Qty: 10 0RF tamsulosin 0.4 mg capsule 0.4 mg PO DAILY Qty: 20 0RF prednisone 20 mg tablet 20 mg PO DAILY Qty: 3 0RF ketorolac 10 mg tablet 10 mg PO TID PRN (Reason: pain) Qty: 12 0RF ondansetron 4 mg tablet,disintegrating 4 mg PO Q6H PRN (Reason: nausea and vomiting) Qty: 14 0RF Referrals: [facility] [Provider Group, Urology] Print Language: [place]
[2024-12-04] MEDS: Lactated Ringers 1,000 ML 999 ML IV (12:18)
--- NOTE | 2024-12-04 12:24 | PC.NURSE ---
patient a&ox3, iv inserted, labs previously drawn, pt medicated for 10/10 rt flank pain, ivf hung per order, pt medicated per order for pain, call harrell within reach, plan of care ongoing
[2024-12-04 12:26] LABS: Magnesium 1.8 mg/dL (1.6-2.6)
--- NOTE | 2024-12-04 14:16 | PC.NURSE ---
patients ivf continue to run slowly, pt was educated to leave arm straight to help them ifuse
--- NOTE | 2024-12-04 14:36 | PC.NURSE ---
pt medicated for nausea
[2024-12-04 17:00] LABS: Appearance Urine Clear; Glucose Urine UA Negative (Negative); PH 7.0 (5.0-9.0); Specific Gravity - Urine 1.015 (1.005-1.025); UMIC TRIGGER UACC YES
== END 2024-12-04 18:04 | disposition home or self-care (01) ==
PROVIDERS: Emergency Provider Emergency Medicine Emergency Medical Services
DX: N20.0 Calculus of kidney (principal); Z87.442 Personal history of urinary calculi; R10.9 Unspecified abdominal pain; R11.2 Nausea with vomiting, unspecified
CPT/HCPCS: 74176; 80053; 81001; 81003; 83690; 83735; 84702; 85025; 87502; 87635; 96361; 96374; 96375; 96376; 99284; 99285; J0131; J1200; J1885; J2270; J2405; J2765; J7120

== ENCOUNTER → 2024-12-04 11:54 | Outpatient (BNV) | payer OTHER, SELFPAY | PROVIDERS: Emergency Provider Emergency Medicine Emergency Medical Services; Visit Provider Radiology Diagnostic Radiology | DX: N20.1 Calculus of ureter (principal) | CPT/HCPCS: 74176 ==

== ENCOUNTER 2024-12-17 08:42 | Emergency (ER) | payer OTHER, SELFPAY ==
[2024-12-17] VITALS (7 sets, daily range): BP systolic 129–151; BP diastolic 73–98; PULSE 92–107; RESP 16–20; TEMP 36.3–36.4; O2SAT 97–99; BMI 24.6
--- NOTE | ~2024-12-17 | CT_ITS ---
EXAMINATION: CT ABDOMEN AND PELVIS WITHOUT CONTRAST CLINICAL INFORMATION: Right flank pain. COMPARISON: 12/04/2024. 02/23/2024. TECHNIQUE: Multidetector volumetric imaging was performed from the superior aspect of the liver through the pubic symphysis. Sagittal and coronal reformatted images were obtained on the technologist's workstation. This CT examination was performed using dose optimization techniques as appropriate, variously including the following: *Automated exposure control *Adjustment of mA and/or kV according to patient size (this includes techniques or standardized protocols for targeted exams where dose is matched to indication/reason for exam; i.e. extremities or head) *Use of iterative reconstruction technique FINDINGS: LUNG BASES: Lung bases are clear bilaterally. There are no effusions. Heart size is normal. Normal GE junction. LIVER, GALLBLADDER, AND BILIARY TREE: The unenhanced liver is normal in size, shape, and attenuation. No focal hepatic lesion or biliary ductal dilatation is present. The gallbladder is unremarkable with no evidence of radiopaque gallstones, gallbladder wall thickening, or obvious pericholecystic inflammatory changes. PANCREAS: Unremarkable. SPLEEN: Unremarkable. ADRENAL GLANDS: Unremarkable. KIDNEYS AND URETERS: RIGHT kidney is malrotated. There are 2 large stones in the mid to lower pole, the larger measuring approximately 8 x 7 mm. There is no hydronephrosis or hydroureter. There is no gross evidence of mass or cyst. LEFT kidney is malrotated as well. There are 3 nonobstructing calculi present, the largest in the midpole measuring 7 x 3 mm. There is no hydronephrosis or hydroureter. There is no gross evidence of mass or cyst. BLADDER: There is a tiny 2 mm calculus in the region of the right UVJ (series 4, image 592). Urinary bladder is otherwise normal. GASTROINTESTINAL TRACT: There is mild wall thickening of the transverse colon, descending colon, and sigmoid colon, with minimal pericolonic mesenteric congestive changes, findings suspicious for colitis. There are scattered diverticula present. No evidence of acute diverticulitis. Questionable mild rectal wall thickening. Normal appendix. Normal small bowel. The stomach is decompressed. Duodenum appears normal. ABDOMINAL WALL: No significant hernia is appreciated. Bilateral breast implants are in place. LYMPH NODES: No abnormal lymphadenopathy is present. VASCULAR: Unremarkable. PELVIC VISCERA: The uterus is retroverted. Adnexa are unremarkable. OSSEOUS STRUCTURES: No suspicious lytic or blastic bone lesions. There is a mild levoconvex thoracolumbar scoliosis. Normal hip joints and SI joints. CT/CT abdomen pelvis wo IV con IMPRESSION: 1. There is a 2 mm calculus in the region of the right UVJ of the urinary bladder, nonobstructing. Uncertain if this is within the right UVJ or within the lumen of the urinary bladder. There is no hydronephrosis or hydroureter present. 2. There is bilateral nonobstructing nephrolithiasis, similar to the recent prior exam. 3. There is wall thickening of the transverse, descending, and sigmoid colon. Findings could be in keeping with colitis in the appropriate clinical setting. Electronically signed by: Anand Navas MD 12/17/2024 11:36 AM EDT
[2024-12-17 09:31] LABS: MANUAL DIFF FLAG NO
[2024-12-17 09:36] LABS: Hematocrit 40.8 % (37.0-47.0); Hemoglobin 14.3 g/dl (12.0-16.0); Imm Gran Abs Auto 0.03 X10*3/uL (0.00-0.03); Imm Gran Pct Auto 0.3 % (0.0-0.4); Lymphocytes Absolute Auto 3.5 X10*3/uL (1.2-4.9); Mean Corpuscular HGB Conc 35.0 g/dl (31.0-35.0); Mean Corpuscular Hemoglobin 28.9 pg (27.0-33.0); Mean Corpuscular Volume 82.6 fL (80.0-98.0); NRBC Abs Auto 0.000 X10*3/uL (0.0-0.012); NRBC Pct Auto 0.0 /100WBC (0.0-0.2); Platelet Count 351 X10*3/uL (160-400); Red Blood Count 4.94 X10*6/uL (4.20-5.50); White Blood Count 11.0 X10*3/uL (4.8-10.8)
[2024-12-17 09:52] LABS: Alanine Aminotransferase 13 U/L (0-31); Albumin Level 5.1 g/dL (3.5-5.0); Alkaline Phosphatase 79 U/L (39-117); Anion Gap 16 (12-20); Aspartate Amino Transferase 18 U/L (5-31); Blood Urea Nitrogen 7 mg/dL (9-16); Calcium 10.3 mg/dL (8.4-10.2); Carbon Dioxide 22 mmol/L (22-29); Chloride 107 mmol/L (96-108); Creatinine Clr Calc Pharmacy 113.3; Estimated Glomerular Filt Rate > 60; Lipase 15 U/L (8-78); Potassium 3.6 mmol/L (3.3-5.1); Sodium 141 mmol/L (135-145); Total Protein 8.4 g/dL (6.5-8.0)
--- NOTE | 2024-12-17 10:18 | PC.NURSE ---
Pt reports no change after firs round of medication interventions, medicated as charted further for pain/nausea. S/O remains by side. Fluids completed. VSS. No active vomiting at this time. Skin color normal for ethnicity. Awaits ultrasound
--- NOTE | 2024-12-17 12:25 | PC.NURSE ---
Pt continues to report 10/10 right flank pain. Denies nausea. Pt medicated as charted. VSS. Plan of care ongoing.
--- NOTE | 2024-12-17 13:00 | ED.ABDPAIN ---
HPI - Abdominal Pain General Chief Complaint: Abdominal Pain Stated Complaint: Kidney stones? Time Seen by Provider: 12/17/24 09:08 Source: patient and RN notes reviewed Mode of arrival: ambulatory Limitations: no limitations History of Present Illness ED Provider: Lyubov Lovett PA-C HPI narrative: This is a 39-year-old female, with a past medical history of kidney stones and medullary sponge kidney, who presents emergency department with concerns of right-sided flank pain that started yesterday. She states that she was watching television when she suddenly developed this right-sided flank pain. She states that the pain has been constant. She also endorses nausea and vomiting. She states that she has a history of kidney stones and symptoms feel similar. She denies any fevers, chills, chest pain, shortness for breath, no diarrhea or constipation. She denies any urinary symptoms. Denies chance of . No abnormal vaginal discharge or bleeding. No other complaints or concerns at this time. MD elicited complaint: abdominal pain Pertinent past history: kidney stones Onset (ago): day(s) Pain Consistency: constant Location: R flank Severity: moderate Quality: aching Migration to: no migration Exacerbating factors: nothing Relieving factors: nothing Associated symptoms: nausea and vomiting Related Data Previous Rx's ?Medication ?Instructions ?Recorded oxycodone 5 mg capsule 5 mg PO Q6H PRN severe pain (scale 09/23/23 score 7-10) #8 caps ondansetron 4 mg disintegrating 4 mg PO Q6-8H PRN nausea and 01/19/24 tablet vomiting #7 tabs oxycodone-acetaminophen 5 mg-325 1 tab PO Q6H PRN pain #20 tabs 01/19/24 mg tablet (Percocet) tamsulosin 0.4 mg capsule (Flomax) 0.4 mg PO BEDTIME #10 caps 01/19/24 ketorolac 10 mg tablet 10 mg PO TID PRN pain #12 tabs 02/23/24 ondansetron 4 mg disintegrating 4 mg PO Q6H PRN nausea and 02/23/24 tablet vomiting #14 tabs prednisone 20 mg tablet 20 mg PO DAILY #3 tabs 02/23/24 tamsulosin 0.4 mg capsule 0.4 mg PO DAILY #20 caps 02/23/24 hydromorphone 4 mg tablet 4 mg PO Q6H PRN pain #14 tabs 11/13/24 (Dilaudid) naproxen 500 mg tablet 500 mg PO BID #14 tabs 12/04/24 ondansetron HCl 4 mg tablet 4 mg PO Q8H PRN nausea and 12/04/24 vomiting #12 tabs oxycodone 5 mg capsule 5 mg PO Q8H PRN pain #9 caps 12/04/24 prednisone 20 mg tablet 20 mg PO DAILY #7 tabs 12/04/24 tamsulosin 0.4 mg capsule (Flomax) 0.4 mg PO DAILY #14 caps 12/04/24 acetaminophen 500 mg tablet 1,000 mg (2 x 500 mg) PO Q8H PRN 12/17/24 (Tylenol Extra Strength) pain #30 tabs ketorolac 10 mg tablet 10 mg PO TID 3 days #9 tabs 12/17/24 metoclopramide HCl 5 mg tablet 5 mg PO DAILY PRN nausea and 12/17/24 (Reglan) vomiting #10 tabs morphine 15 mg immediate release 15 mg PO Q6H PRN severe pain 12/17/24 tablet (scale score 7-10) #10 tabs nitrofurantoin 100 mg PO Q12H 5 days #10 caps 12/17/24 monohydrate/macrocrystals 100 mg capsule (Macrobid) tamsulosin 0.4 mg capsule (Flomax) 0.4 mg PO DAILY 14 days #14 caps 12/17/24 Allergies Allergy/AdvReac Type Severity Reaction Status Date / Time Iodinated Contrast Media Allergy Hives Verified 12/17/24 08:49 (Contrast Dye) Review of Systems Review of Systems Constitutional : No Fever, No Chills ENT/Mouth : No sore throat, No Rhinorrhea Eyes: No Eye Pain, No Swelling, No Redness Cardiovascular : No Chest Pain, No SOB Respiratory : No Cough, No Sputum Gastrointestinal : +Nausea, + Vomiting, No Diarrhea, +R flank pain Genitourinary : No Dysuria, No Hematuria Musculoskeletal : No joint pain, No Myalgias, No Joint Swelling Skin : No Skin Lesions Neuro : No Weakness, No Numbness, No Headache All other systems reviewed and are negative Yes all other systems are reviewed and are negative Constitutional: Reports as per [facility] Past Medical History Medical History Kidney stone Medullary sponge kidney Physical Exam ED Vital Signs: Vital Signs - 24 hr 12/17/24 08:46 12/17/24 09:24 12/17/24 10:11 Temperature 97.6 F Pulse Rate 107 H 105 H 93 Respiratory Rate 20 16 18 Blood Pressure 151/98 H 145/96 H 144/90 H Pulse Oximetry 97 99 98 Oxygen Delivery Method Room Air Room Air Room Air 12/17/24 12:22 12/17/24 14:20 12/17/24 16:29 Temperature 97.3 F Pulse Rate 104 H 95 92 Respiratory Rate 18 18 16 Blood Pressure 129/73 130/81 129/82 Pulse Oximetry 99 99 98 Oxygen Delivery Method Room Air Room Air Room Air 12/17/24 16:43 Temperature 97.3 F Pulse Rate 92 Respiratory Rate 16 Blood Pressure 129/82 Pulse Oximetry 98 Oxygen Delivery Method Room Air BMI result Body Mass Index 24.6 Const Other: Appears to be uncomfortable secondary to pain in right flank. General: cooperative Limitations: no limitations HENVT Head: Yes normal to inspection, Yes normocephalic and Yes atraumatic Ears: hearing grossly normal bilaterally General nose exam: Normal external nose present Face and sinus: Yes normal facial exam Mouth: Normal oral and palatal mucosa present, oropharynx normal and moist mucous membranes Throat: Yes posterior oropharynx normal Eyes General: appearance normal, both eyes and all related structures Eyelids: Yes eyelids normal Conjunctivae: conjunctivae normal Sclerae: sclerae normal Pupils: Equal, round and reactive pupils present EOM: EOMs intact bilaterally Neck Neck: Yes normal visual inspection, Yes full ROM and Yes no lymphadenopathy Lymphatic: no lymphadenopathy noted Chest Chest palpation & inspection: normal inspection of the chest Resp Effort & Inspection: normal respiratory effort and able to speak in complete sentences Auscultation: clear to auscultation bilaterally, no crackles, no rales, no rhonchi and no wheezes Cardio Rate: regular rate Rhythm: regular rhythm Heart sounds: S1 normal heart sound present and S2 normal heart sound present GI Inspection: Yes normal to inspection General: Yes no CVA tenderness Back/Spine/Pelvis Back: no CVA tenderness Skin General skin exam: no rashes or lesions noted Trauma: no lacerations or abrasions Wounds: no wounds Neuro General: moves all extremities Cranial nerves: Yes Equal, round and reactive pupils present Extrem General: Yes normal to inspection Right upper extremity: normal to inspection Left upper extremity: normal to inspection Right lower extremity: normal to inspection Left lower extremity: normal to inspection Medical Decision Making Medical Decision Making MDM Narrative: This is a 39-year-old female, with a past medical history of diabetes, hyperlipidemia, kidney stones, and medullary sponge kidney, who presents emergency department with concerns of right-sided flank pain that started yesterday. On arrival, blood pressure elevated 151/98, pulse 107, she is afebrile. Patient has a history of kidney stones and symptoms and presentation consistent with possible renal colic. Patient has no right lower abdominal pain to suggest appendicitis or any intra-abdominal process. Endorsing nausea and vomiting. She discusses no chance of . No urinary symptoms. Patient reports allergy to IV contrast dye. Will obtain labs, will medicate with antiemetics and pain medication. We will continue to closely monitor. 9:50 AM 12/17/2024 (Lyubov Lovett PA-C): Patient is still reporting nausea and pain, will medicate with Toradol and Reglan and Benadryl. Ultrasound still not performed, given level of discomfort, will obtain CT abdomen and pelvis. 11:59 AM 12/17/2024 (Lyubov Lovett PA-C): Patient continues to have pain, medicated with Dilaudid. 1:05 PM 12/17/2024 (Lyubov Lovett PA-C): Labs returned, she has slight leukocytosis at 11k, likely reactive, infection not suspected at this time. Chemistry revealing no significant electrolyte derangement. She does have slight elevation in T bili at 1.2 however she does not have any right upper quadrant or left upper quadrant tenderness on examination. Urine pending at this time. CT abdomen and pelvis revealing a 2 mm calculus in the region of the right UVJ of the urinary bladder, nonobstructing, uncertain if this is in the right UVJ or within the lumen of the urinary bladder. No hydronephrosis or hydroureter present. There were bilateral nonobstructing nephrolithiasis, as well as well thickening of the transverse descending and sigmoid colon. She also has 2 large stones in the mid to lower pole of the larger measuring approximately 8 x 7 mm. Given that the stones are nonobstructing, they should not be causing her to have this pain however presentation is oddly suspicious for renal colic, however could be attributed to colitis seen on CAT scan as well. Will reach out to urology as well as GI for recommendations. Patient re-evaluated, feeling much better, resting comfortably. 13:40 PM 12/17/2024 (Lyubov Lovett PA-C): Dr. Cheng recommendations including that this stones you are less likely causing pain, however she is likely passing the 2 mm stone which will cause pain. Recommending Flomax, and follow-up out patient visit, no urgent treatment for the UVJ stone other than hydration. I discussed case with Dr. Langley due to question of colitis. This is not fit the clinical picture, and likely is caused by the stone. Will have patient follow-up with the GI specialist outpatient as patient alludes to having recent weight loss, and ongoing issues with abdominal pain nausea and vomiting. Patient was given strict return precautions, discharged on pain medication, antiemetics, and antibiotics. She was given a 1 time dose of ceftriaxone however this did caused her to break out in a hive, this resolved after receiving Benadryl. Patient is feeling much better, tolerating p.o.. Given strict return precautions, she understands and agrees with plan. Patient stable for discharge. Differential Diagnosis Differential Diagnoses: The differential diagnosis associated with the presentation includes Renal colic, diverticulitis, diverticulosis, colitis Admission/Observation Consideration of admission/observation: Escalation of care including admission/observation considered Lab Data [facility] Lab Attestation statement: I reviewed the patient's lab results. See MDM 12/17/24 09:21 12/17/24 09:21 Labs: Lab Results 12/17/24 12/17/24 12/17/24 Range/Units 09:21 12:56 14:27 WBC 11.0 H (4.8-10.8) X10*3/uL RBC 4.94 (4.20-5.50) X10*6/uL Hgb 14.3 (12.0-16.0) g/dl Hct 40.8 (37.0-47.0) % MCV 82.6 (80.0-98.0) fL MCH 28.9 (27.0-33.0) pg MCHC 35.0 (31.0-35.0) g/dl RDW 12.1 (11.0-16.0) % Plt Count 351 (160-400) X10*3/uL MPV 11.3 (9.4-12.3) fL Immature Gran % (Auto) 0.3 (0.0-0.4) % Neut % (Auto) 60.4 (45-73) % Lymph % (Auto) 32.1 (20-40) % [place] % (Auto) 6.5 (2-11) % Eos % (Auto) 0.5 (0-4) % Baso % (Auto) 0.2 (0-2) % Lymph # (Auto) 3.5 (1.2-4.9) X10*3/uL [place] # (Auto) 0.7 (0.1-1.2) X10*3/uL Eos # (Auto) 0.1 (0.0-0.4) X10*3/uL Baso # (Auto) 0.0 (0.0-0.2) X10*3/uL Abs Immat Gran (auto) 0.03 (0.00-0.03) X10*3/uL Absolute Neuts (auto) 6.7 (2.0-8.3) x10*3/uL Absolute Nucleated RBC 0.000 (0.0-0.012) X10*3/uL Nucleated RBC % (auto) 0.0 (0.0-0.2) /100WBC Sodium 141 (135-145) mmol/L Potassium 3.6 (3.3-5.1) mmol/L Chloride 107 (96-108) mmol/L Carbon Dioxide 22 (22-29) mmol/L Anion Gap 16 (12-20) BUN 7 L (9-16) mg/dL Creatinine 0.63 (0.5-1.4) mg/dL Estim Creat Clear Calc 113.3 Estimated GFR > 60 Random Glucose 128 H (60-115) mg/dL Lactic Acid 0.8 (0.5-2.0) mmol/L Calcium 10.3 H D (8.4-10.2) mg/dL Total Bilirubin 1.2 H (0.0-1.0) mg/dL Direct Bilirubin 0.4 (0.0-0.5) mg/dL AST 18 (5-31) U/L ALT 13 (0-31) U/L Alkaline Phosphatase 79 (39-117) U/L Total Protein 8.4 H (6.5-8.0) g/dL Albumin 5.1 H (3.5-5.0) g/dL Lipase 15 (8-78) U/L Beta HCG, Quant < 2 mIU/mL Urine Color Yellow Urine Appearance Cloudy Urine pH 6.0 (5.0-9.0) Ur Specific Nichols 1.010 (1.005-1.025) Urine Protein 100 (2+) H (Neg-Trace) mg/dL Urine Glucose (UA) Negative (Negative) mg/dL Urine Ketones Negative (Negative) mg/dL Urine Blood Small (1+) H (Negative) Urine Nitrite Negative (Negative) Ur Leukocyte Esterase Moderate (2+) H (Negative) Urine RBC 0-2 (0-2) /HPF Urine WBC 0-5 (0-5) /HPF Ur Squamous Epith Cells 6-10 (0-2) /HPF Calcium Oxalate Crystal Present Urine Bacteria 2+ (None Seen) Hyaline Casts 6-10 (0-2) /LPF Urine Test NEGATIVE (NEGATIVE) Independent Interpretation I performed an independent interpretation of an: EKG Interpretation: EKG normal sinus rhythm at a ventricular rate of 85 beats per minute, QT QTC 354/421, no acute ischemic changes Radiology Impression Discussion of test interpretation with radiology: I have reviewed the radiologist's reading. Radiologist Impression: FINDINGS: LUNG BASES: Lung bases are clear bilaterally. There are no effusions. Heart size is normal. Normal GE junction. LIVER, GALLBLADDER, AND BILIARY TREE: The unenhanced liver is normal in size, shape, and attenuation. No focal hepatic lesion or biliary ductal dilatation is present. The gallbladder is unremarkable with no evidence of radiopaque gallstones, gallbladder wall thickening, or obvious pericholecystic inflammatory changes. PANCREAS: Unremarkable. SPLEEN: Unremarkable. ADRENAL GLANDS: Unremarkable. KIDNEYS AND URETERS: RIGHT kidney is malrotated. There are 2 large stones in the mid to lower pole, the larger measuring approximately 8 x 7 mm. There is no hydronephrosis or hydroureter. There is no gross evidence of mass or cyst. LEFT kidney is malrotated as well. There are 3 nonobstructing calculi present, the largest in the midpole measuring 7 x 3 mm. There is no hydronephrosis or hydroureter. There is no gross evidence of mass or cyst. BLADDER: There is a tiny 2 mm calculus in the region of the right UVJ (series 4, image 592). Urinary bladder is otherwise normal. GASTROINTESTINAL TRACT: There is mild wall thickening of the transverse colon, descending colon, and sigmoid colon, with minimal pericolonic mesenteric congestive changes, findings suspicious for colitis. There are scattered diverticula present. No evidence of acute diverticulitis. Questionable mild rectal wall thickening. Normal appendix. Normal small bowel. The stomach is decompressed. Duodenum appears normal. ABDOMINAL WALL: No significant hernia is appreciated. Bilateral breast implants are in place. LYMPH NODES: No abnormal lymphadenopathy is present. VASCULAR: Unremarkable. PELVIC VISCERA: The uterus is retroverted. Adnexa are unremarkable. OSSEOUS STRUCTURES: No suspicious lytic or blastic bone lesions. There is a mild levoconvex thoracolumbar scoliosis. Normal hip joints and SI joints. CT/CT abdomen pelvis wo IV con IMPRESSION: 1. There is a 2 mm calculus in the region of the right UVJ of the urinary bladder, nonobstructing. Uncertain if this is within the right UVJ or within the lumen of the urinary bladder. There is no hydronephrosis or hydroureter present. 2. There is bilateral nonobstructing nephrolithiasis, similar to the recent prior exam. 3. There is wall thickening of the transverse, descending, and sigmoid colon. Findings could be in keeping with colitis in the appropriate clinical setting. Electronically signed by: Anand Navas MD 12/17/2024 11:36 AM EDT Dictated By: Anand Navas MD Medications Administered Discontinued Medications Generic Name Dose Route Start Last Admin Trade Name Freq PRN Reason Stop Dose Admin Ceftriaxone Sodium 1 gm 12/17/24 13:56 12/17/24 14:35 Ceftriaxone Sodium 1 Gm Vial IVPUSH 12/17/24 13:57 1 gm ONCE ONE Administration Diphenhydramine HCl 12.5 mg 12/17/24 09:49 12/17/24 10:09 Diphenhydramine Hcl 50 Mg/Ml Vial IVPUSH 12/17/24 09:50 12.5 mg ONCE ONE Administration Diphenhydramine HCl 25 mg 12/17/24 14:40 12/17/24 14:46 Diphenhydramine Hcl 50 Mg/Ml Vial IVPUSH 12/17/24 14:41 25 mg ONCE ONE Administration Hydromorphone HCl 1 mg 12/17/24 11:59 12/17/24 12:20 Hydromorphone Hcl 1 Mg/Ml Syringe IVPUSH 12/17/24 12:00 1 mg ONCE ONE Administration Protocol Sodium Chloride 1,000 mls @ 999 mls/hr 12/17/24 09:13 12/17/24 10:09 Ns IV 12/17/24 10:13 Infused .Q1H1M ONE Infusion Sodium Chloride 1,000 mls @ 999 mls/hr 12/17/24 13:58 12/17/24 16:33 Ns IV 12/17/24 14:58 Infused .Q1H1M ONE Infusion Ketorolac Tromethamine 15 mg 12/17/24 09:49 12/17/24 10:08 Ketorolac Tromethamine 15 Mg/Ml Vial IVPUSH 12/17/24 09:50 15 mg ONCE ONE Administration Metoclopramide HCl 10 mg 12/17/24 09:49 12/17/24 10:08 Metoclopramide Hcl 10 Mg/2 Ml Vial IVPUSH 12/17/24 09:50 10 mg ONCE ONE Administration Morphine Sulfate 4 mg 12/17/24 09:13 12/17/24 09:23 Morphine Sulfate 4 Mg/Ml Cartridge IVPUSH 12/17/24 09:14 4 mg ONCE ONE Administration Protocol Ondansetron HCl 4 mg 12/17/24 08:51 12/17/24 08:53 Ondansetron Odt 4 Mg Tab.Rapdis TRANSLINGU 12/17/24 08:52 4 mg ONCE ONE Administration Ondansetron HCl 4 mg 12/17/24 09:13 12/17/24 09:22 Ondansetron Hcl 4 Mg/2 Ml Vial IVPUSH 12/17/24 09:14 4 mg ONCE ONE Administration Tamsulosin HCl 0.4 mg 12/17/24 13:57 12/17/24 14:34 Tamsulosin Hcl 0.4 Mg Capsule PO 12/17/24 13:58 0.4 mg ONCE ONE Administration Discharge Plan Discharge Clinical Impression: Calculus of kidney Patient Disposition: Admitted As Inpatient Additional Instructions: You were seen in the emergency department due to right-sided abdominal pain. You were CT reveals a kidney stone which is likely the source of your symptoms. Please take Flomax as prescribed. Take Tylenol as needed for moderate pain. You can take ketorolac 10 mg up to 3 times a day as needed. Do not mix with any other NSAIDs. I am also starting you on an antibiotic, as your urine does appear to be slightly infected. This antibiotic is called Macrobid. This is to be taken twice a day for the next 5 days. Reglan is a nausea medication, do not mix with Zofran. You may also add Benadryl as this can also help with nausea. Drink plenty of fluids get plenty of rest. Call the urology office to make an appointment. Morphine as a strong pain medication, if you do not have any pain relief from Tylenol or ketorolac, take morphine. Morphine as a strong pain medication, can cause drowsiness, do not drink alcohol or drive while taking this medication. I am also having you follow-up with the GI specialist, call to make an appointment. Medication that we had given you that caused you did break out in hives he was something called ceftriaxone. Please make note in your record. Interventions: ED Discharge Assessment Last Done: 12/17/24 16:43 Discharge Date/Time: 12/17/24 16:43 Print Language: Yakut
[2024-12-17 13:16] LABS: Appearance Urine Cloudy; Glucose Urine UA Negative (Negative); PH 6.0 (5.0-9.0); Specific Gravity - Urine 1.010 (1.005-1.025); UMIC TRIGGER UACC YES
[2024-12-17 13:24] LABS: UACC Culture Trigger YES
[2024-12-17 13:58] LABS: UPreg QC Valid YES
--- NOTE | 2024-12-17 14:51 | PC.NURSE ---
While medicating Pt with ceftriaxone IV, pt began feeling itchy and had small hives on chest. Medication administration stopped, and provider notified immediately. Pt medicated with benadryl as charted. Pt airway patent, respirations even non-labored, she denies shortness of breath. Plan for different antibiotic to be ordered.
--- NOTE | 2024-12-17 16:12 | ECG_ITS ---
Test Reason : EVAULATE QT Blood Pressure : */* mmHG Vent. Rate : 85 BPM Atrial Rate : 85 BPM P-R Int : 138 ms QRS Dur : 88 ms QT Int : 354 ms P-R-T Axes : 58 60 54 degrees QTcB Int : 421 ms Normal sinus rhythm Normal ECG No previous ECGs available Referred By: Lyubov Lovett Electronically Signed By: FELICIA TOLLIVER MD
== END 2024-12-17 16:43 | disposition admitted as inpatient to this hospital (09) ==
PROVIDERS: Physician Assistant Medical; Emergency Provider Emergency Medicine
DX: N20.0 Calculus of kidney (principal); E11.9 Type 2 diabetes mellitus without complications; Q61.5 Medullary cystic kidney; Z87.442 Personal history of urinary calculi; Z91.041 Radiographic dye allergy status
CPT/HCPCS: 36415; 74176; 80048; 80076; 81001; 81025; 83605; 83690; 84702; 85025; 87040; 87086; 93005; 96361; 96374; 96375; 99285; J0696; J1171; J1200; J1885; J2270; J2405; J2765

== ENCOUNTER → 2024-12-17 10:52 | Outpatient (BNV) | payer OTHER, SELFPAY | PROVIDERS: Emergency Provider Emergency Medicine; Visit Provider Radiology Diagnostic Radiology | DX: N20.2 Calculus of kidney with calculus of ureter (principal); K63.89 Other specified diseases of intestine | CPT/HCPCS: 74176 ==

== ENCOUNTER → 2024-12-17 16:12 | Outpatient (BNV) | payer OTHER, SELFPAY | PROVIDERS: Emergency Provider Emergency Medicine; Visit Provider Internal Medicine Cardiovascular Disease | DX: Z13.6 Encounter for screening for cardiovascular disorders (principal) | CPT/HCPCS: 93010 ==

== ENCOUNTER 2024-12-25 13:04 | Outpatient (REF) | payer OTHER, SELFPAY ==
[2024-12-25 15:52] LABS: Parathyroid Hormone Intact 52.2 pg/mL (8.7-77.1)
[2024-12-25 16:10] LABS: Cholesterol 85 mg/dL (<200); HDL Cholesterol 37 mg/dL (>40); Triglycerides 73 mg/dL (<150)
[2024-12-25 18:28] LABS: Free T4 (Free Thyroxine) 1.72 ng/dL (0.71-1.85)
[2024-12-26 10:45] LABS: HBS Num1 166.41 mIU/mL (0-7.99); HBc Num1 12.44 S/CO (0.00-0.79); HBsAGNum1 0.55 S/CO (0.00-0.99); HIV Num 1 0.08 S/CO (0.00-0.99); Hepatitis B Surface Antigen Negative (Negative); ~HepC Num1 0.10 S/CO (0.00-0.79); ~Hepatitis B Surface Antibody REACTIVE (Nonreactive); ~Hepatitis C Antibody Nonreactive (Nonreactive)
[2024-12-26 11:49] LABS: HBc Num2 12.29 S/CO; HBc Num3 12.19 S/CO
[2025-01-01 14:58] LABS: Vitamin D 25-OH, D2 <4 ng/mL; Vitamin D 25-OH, D3 37 ng/mL; Vitamin D 25-OH, Total 37 ng/mL (30-100)
== END 2024-12-25 13:05 | disposition home or self-care (01) ==
LOC: HO.LAB 13:04
PROVIDERS: PCP Internal Medicine; Visit Provider Internal Medicine
DX: Z00.00 Encounter for general adult medical examination without abnormal findings (principal); E05.90 Thyrotoxicosis, unspecified without thyrotoxic crisis or storm; R20.0 Anesthesia of skin; R00.2 Palpitations; Z13.1 Encounter for screening for diabetes mellitus
CPT/HCPCS: 36415; 80061; 82306; 83036; 83970; 84439; 84443; 84445; 86704; 86705; 86706; 86803; 87340; 87389; 96127

== ENCOUNTER 2024-12-25 13:04 | Outpatient (AMB) | payer OTHER, SELFPAY ==
--- OUTSIDE RECORDS SUMMARY | 2014-04-13 11:28 | XMS_ITS | Continuity of Care Document ---
Author Organization [facility] Care Team Address [address] [place] [address] Phone Care Team Providers Care Social And Political Studies Professor Name Role Phone Provider1, First Unavailable Unavailable Advance Directives Directive Yes / No Effective Date File Name No Information Encounters Encounter Description Practice Location Reason(s) For Visit Diagnoses Date Provider Providers Copied on Encounter [facility] Team, [address] [place], [address], [place] tel:[phone] [facility] No Information Provider1 First. . Family [...]
--- OUTSIDE RECORDS SUMMARY | 2024-09-07 12:34 | XMS_ITS | Continuity of Care Document ---
Author Organization [employer] Address [address] [place] [address] Phone Care Team Providers Care Art Studio Teacher Name Role Phone Tiffanie Albarran MD Unavailable [...] ESTAB PT 15 MIN Family Resource Counselor Dramatic Reader Screen 010 URINE DIP NON-AUTO WITHOUT MICRO [...] Diagnoses Date Provider Providers Copied on Encounter [facility] [address] [place] [address], [id number] , [phone] [facility] No Information 5 Deion Moreno. [address] [place], [place], [id number], . tel:[phone] Indiv.Psycho therapy 30 Minutes(16-3 7) [facility] [address] [place], [place], [id number] , [phone] [facility] Major depressive disorder, recurrent, unspecified 4 Reena Arce. [address] [place], [address], . tel:[phone] Referring Provider: Tiffanie Albarran, [address] [place] [address], [address]. tel:[phone] OFFICE/OUTPA TIENT VISIT EST PT 20-29 MINS [facility] [address] [place] [address], [id number] , [place] tel: [phone] [facility] Follow Up of Anxiety (chief complaint)MD Note (chief complaint) Body mass index (BMI) 24.0-24.9, adultGAD (generalized anxiety disorder) 4 Deion Moreno. [address] [place], [place], [id number], [place]. tel:[phone] Referring Provider: Tiffanie Albarran, [address] [facility], [place], [address]. tel:[phone] OFFICE/OUTPA TIENT VISIT EST PT 20-29 MINS [facility] [address] [place] [address], [id number] , [place] tel: [phone] letter (chief complaint)Anx iety (chief complaint) Anxiety and depression 4 [facility]. [address], [place], [address], [place]. tel:[phone] Referring Provider: Tiffanie Albarran, [address] [place], [place] [address]e, [place], [address]. tel:[phone] OFFICE VISIT ESTAB PT 30-39 MIN [facility] [address] [place] [address], [id number] , [place] tel: [phone] [facility] Work Letter (chief complaint) Depressive disorderBila teral leg weaknessGAD (generalized anxiety disorder)Mark sea and vomiting in adultKidney stones 3 Deion Moreno. [address] [place], [place], [id number], [place]. tel:[phone] Referring Provider: Tiffanie Albarran, [facility] [place], [address]. tel:[phone] OFFICE VISIT ESTAB PT 40-54 MIN [facility] [address] [place] [address], [id number] , [place] tel:[phone] Anxiety (chief complaint)Tel ephone visit (chief complaint) Kidney stonesRight leg weaknessAnxi ety and depressionDe pression, unspecifiedS creening for diabetes mellitusScre ening cholesterol levelScreeni ng for thyroid disorderOthe r assisted (current) drug therapy 3 Pasha Adriana. [address] [place], [address], [place]. tel:[phone] Referring Provider: Tiffanie Albarran, [address] [place], [address]. tel:[phone] OFFICE/OUTPA TIENT VISIT EST PT 20-29 MINS [facility] [address] [place] [address], [id number] , [place] tel: [facility] MD Note (chief complaint) Leg weakness, bilateral 3 Deion Moreno. [address] [place], [place], [id number], [place]. tel:[phone] Referring Provider: Tiffanie Albarran, [address] [place], [address]. tel:[phone] OFFICE/OUTPA TIENT VISIT EST PT 20-29 MINS [facility] [address] [place] [address], [id number] , [place] tel: [phone] [facility] Right leg weakness (chief complaint)Tel ehealth (chief complaint) Weakness of right lower extremityRen al calculus 3 Khalif Rodriguez. [address] [place], [address], [place]. tel:[phone] Referring Provider: Tiffanie Albarran, [address] [place], [address]. tel:[phone] OFFICE/OUTPA TIENT VISIT EST PT 20-29 MINS [facility] [address] [place] [address], [id number] , [place] tel: [phone] [address] [place] [address] infertility (chief complaint)add (chief complaint) Infertility management 1 Nic Maya. [address] [place], [address], [place]. tel:[phone] Referring Provider: Tiffanie Albarran, [address] [place], [address]. tel:[phone] [facility] [address] [place] [address], [id number] , [place] tel: [address] [place] [address] No Information 0 Ulises you RN. [address] [place], [address], [place]. OFFICE/OUTPA TIENT VISIT, [facility] [address] [place] [address], [id number] , [place] tel: [address] [place] [address] Telehealth visit (chief complaint) Abdominal pain with vomitingVomi ting, unspecified 0 Jarod Mendoza. [address] [place], [address], [place]. tel:[phone] Referring Provider: eRji Olivera, [address] [place], [address]. tel:[phone] OFFICE/OUTPA TIENT VISIT, [facility] [address] [place] [address], [id number] , [place] tel: [facility] Vomiting (chief complaint) Body mass index (BMI) 22.0-22.9, adultGastroe nteritis 9 Jenn Rm. [address] [place], [address], [place]. tel:[phone] Referring Provider: Sujey Barajas, [address] [place], [address]. tel:[phone] OFFICE/OUTPA TIENT VISIT, [facility] [address] [place] [address], [id number] , [place] tel: [facility] Follow Up of ED/Abdominal pain (chief complaint) Body mass index (BMI) 19.9 or less, adultCalculu s of kidney 9 Leisa Frias. [address] [place], [place], [id number], [place]. tel: [phone] Referring Provider: Rodriguez De La Fuente, [address] [facility], [place], [address]. tel: [phone] [email or web address] [address] [place] [address], [id number] , [place] tel: [phone] [facility] examination 9 Anette Weldon. [address], [place], [place], [id number], [place]. tel: [phone] Referring Provider: Fatemeh Cheema, [address], [place], [address]. tel: [phone] [email or web address] [address] [place] [address], [id number] , [place] tel: [phone] [facility] examination 9 Anette Weldon. [address], [place], [place], [id number], [place]. tel: [phone] Referring Provider: Fatemhe Cheema, [address], [place], [address]. tel: [phone] [email or web address] [address] [place] [address], [id number] , [place] tel: [phone] [facility] examination 8 Anette Weldon. [address], [place], [place], [id number], [place]. tel: [phone] Referring Provider: Fatemeh Cheema, [address], [place], [address]. tel: [phone] [email or web address] [address] [place], [place], [id number] , [place] tel: [phone] [facility] examination Joshua Delaney. [address] [facility], [place], [address], [place]. tel:[phone] Referring Provider: Rhett Lewis, [address] [place], [address]. tel:[phone] [facility] [address] [place] [address], [id number] , [place] tel: [phone] [facility] examination 8 Anette Weldon. [address] [place], [place], [id number], [place]. tel:[phone] OFFICE/OUTPA TIENT VISIT, EST [facility] [address] [place] [address], [id number] , [place] tel:+ [phone] [facility] trying to conceive (chief complaint)Dys pareunia (chief complaint) Dyspareunia in female 8 Luigi Stuart. [address] [place], [address], [place]. tel:[phone] [employer], [address] [place] [address], [id number] , [place] tel: [phone] [facility] flu (chief complaint) Encounter for oth general cnsl and advice on contraceptio nEncounter for reversal of previous sterilizatio n 8 No Information OFFICE/OUTPA TIENT VISIT, EST [email or web address] [address] [place] [address], [id number] , [place] tel:[phone] [facility] Post-surgical Pain (chief complaint) Acute abdomen 8 Cardona Gina. [address] [place], [address], [place]. tel:[phone] Referring Provider: Kiko Hicks, [address] [place], [address]. tel:[phone] OFFICE VISIT ESTAB PT 25 MIN [email or web address] [address] [place] [address], [id number] , [place] tel: [phone] [facility] back pain (chief complaint) Other acute back pain 8 Konrad Katina. [address] [place] [address], [id number], [place]. tel:[phone] [facility] [address] [place] [address], [id number] , tel: [phone] [facility] examination 7 Odilon Castaneda. [address] [place] [address], [id number], [place]. tel:[phone] Referring Provider: Leonel Donald, [address] [place] [address], [address]. tel:[phone] [facility] [address] [place] [address], [id number] , tel: [phone] [facility] examination 7 Yfn Hanson. [address] [place] [address], [address], [place]. tel: [phone] Referring Provider: Margie Coulter, [address] [place] [address], [address]. tel: [phone] OFFICE VISIT ESTAB PT 25 MIN [email or web address] [address] [place] [address], [id number] , tel: [phone] [facility] Follow Up of Depression (chief complaint) Calculus of kidney with calculus of ureterMajor depressive disorder, single episode, unspecified Apr-0 4-201 7 Hofstetter Katherene. [address] [place] [address], [id number], [place]. tel:[phone] Referring Provider: Tayler Monte, [address] [place] [address], [address]. tel: [phone] OFFICE VISIT ESTAB PT 25 MIN [email or web address] [address] [place] [address], [id number] , [place] tel: [phone] [facility] Follow Up of Depression (chief complaint) Major depressive disorder, single episode, unspecified Mar-0 7-201 7 Hofstetter Katherene. [address] [place] [address], [id number], [place]. tel: [phone] Referring Provider: Tayler Monte, [address] [place] [address], [address]. tel:[phone] OFFICE VISIT ESTAB PT 25 MIN [facility] [address] [place] [address], [id number] , tel: [phone] [facility] Follow Up of Depression (chief complaint) Major depressive disorder, recurrent, unspecified 7 Oniel Lang. [address] [place] [address], [id number], [place]. tel: [phone] Referring Provider: Tayler Monte, [address] [place] [address], [address]. tel:[phone] Indiv.Psycho therapy 45 Minutes [facility] [address] [place] [address], [id number] , tel: [facility] Anxiety (chief complaint)Dep ression (chief complaint)Str essed (chief complaint)Sle ep disturbance (chief complaint) Major depressive disorder, recurrent, unspecifiedP ost-traumati c stress disorder, chronic 7 [place], [address], [place]. tel:[phone] Referring Provider: Tayler Monet, [address] [place] [address], [address]. tel:[phone] OFFICE/OUTPA TIENT VISIT, [facility] [address] [place] [address], [id number] , [place] tel: [phone] [facility] Follow Up of Depression (chief complaint) Depression 7 Oniel Lang. [address] [place] [address], [id number], [place]. tel: [phone] Referring Provider: Tayler Monte, [address] [place] [address], [address]. tel:[phone] OFFICE/OUTPA TIENT VISIT, [facility] [address] [place] [address], [id number] , tel: [facility] Follow Up of Depression (chief complaint) Major depressive disorder, recurrent, unspecified Dec-1 6- 6 Lavell Lester. [address] [place] [address], [id number], [place]. tel:[phone] Referring Provider: Tayler Monte, [address] [place] [address], [address]. tel:[phone] OFFICE/OUTPA TIENT VISIT, [facility] [employer] [address] [place] [address], [id number] , [place] tel: [facility] Follow Up of Depression (chief complaint) Major depressive disorder, recurrent, unspecifiedL eft flank pain Dec-0 9- 6 Lavell Lester. [address] [place] [address], [id number], [place]. tel:[phone] Referring Provider: Tayler Monte, [address] [place] [address], [address]. tel:[phone] OFFICE/OUTPA TIENT VISIT, [facility] [address] [place] [address], [id number] , tel: [facility] depression (chief complaint) Depression Dec-0 6 Khalif Rodriguez. [address] [place], [address], [place]. tel: [phone] Referring Provider: Tayler Monte, [address] [place] [address], [address]. tel:[phone] OFFICE/OUTPA TIENT VISIT, [employer] [address] [place], [place], [id number] , [place] tel: [phone] [facility] Follow Up of Depression (chief complaint) Major depressive disorder, recurrent, unspecifiedE pigastric painLeft flank pain Nov-2 3- 6 Lavell Lester. [address] [place] [address], [id number], [place]. tel:[phone] Referring Provider: Tayler Monte, [address] [place] [address], [address]. tel:[phone] OFFICE/OUTPA TIENT VISIT, [facility] [address] [place] [address], [id number] , [place] tel: [phone] [facility] Follow Up of Depression (chief complaint) Major depressive disorder, recurrent, unspecified 6 Lavell Lester. [address] [place] [address], [id number], [place]. tel:[phone] Referring Provider: Tayler Monte, [address] [place] [address], [address]. tel:[phone] [facility] [address] [place] [address], [id number] , tel:[phone] [facility] Depression (chief complaint)Sle ep disturbance (chief complaint)Harvinder etite loss (chief complaint) Major depressive disorder, recurrent, unspecified 6 [place], [address], [place]. tel: [phone] Referring Provider: Tayler Monte, [address] [place] [address], [address]. tel:[phone] OFFICE/OUTPA TIENT VISIT, [facility] [address] [place] [address], [id number] , [place] tel: [phone] [facility] Follow Up of Depression (chief complaint) Depression, unspecified depression typeLeft flank pain 6 Lavell Lester. [address] [place] [address], [id number], [place]. tel:[phone] Referring Provider: Tayler Monte, [address] [place] [address], [address]. tel:[phone] OFFICE/OUTPA TIENT VISIT, [facility] [address] [place] [address], [id number] , [place] tel: [phone] [facility] Follow Up of Depression (chief complaint)Fol low Up of gastritis (chief complaint) Depression, unspecified depression type Sep-2 3-201 6 Monte Tayler. [address] [place] [address], [id number], [place]. tel:[phone] Referring Provider: Tayler Monte, [address] [place] [address], [address]. tel:[phone] [facility] [address] [place] [address], [id number] , [place] tel: [phone] [facility] examination Sep-2 0-201 6 Donald Leonel. [address] [place] [address], [id number], [place]. tel:[phone] Referring Provider: Margie Coulter, [address] [place] [address], [address]. tel: [phone] OFFICE VISIT ESTAB PT 25 MIN [employer], [address] [place] [address], [id number] , [place] tel: [phone] [facility] Follow Up of ER (chief complaint)Dep ression (chief complaint)abd ominal pain (chief complaint) Depression, unspecified depression typeEpigastr ic pain Sep-0 9-201 6 Lavell Tayler. [address] [place] [address], [id number], [place]. tel:[phone] Referring Provider: Tayler Monte, [address] [place] [address], [id number]. tel:[phone] [facility] [address] [place] [address], [id number] , [place] tel: [phone] [facility] examination Noel- 5-201 5 Donald Leonel. [address] [place] [address], [id number], [place]. tel:[phone] Referring Provider: Tayler Monte, [address] [place] [address], [address]. tel:[phone] OFFICE VISIT ESTAB PT 25 MIN [facility] [address] [place] [address], [id number] , [place] tel: [phone] [facility] abdominal pain (chief complaint) UTI (lower urinary tract infection) 5 Jacquelin Alarcon. [address] [place], [place], [id number], [place]. tel: [phone] Referring Provider: Tayler Monte, [address] [place] [address], [address]. tel:[phone] OFFICE VISIT ESTAB PT 25 MIN [facility] [address] [place] [address], [id number] , [place] tel: [phone] [facility] Kidney stones (chief complaint) Abdominal pain, left lower quadrantCalc ulus of kidneyVomiti ng 5 Lavell Lester. [address] [place] [address], [id number], [place]. tel:[phone] Referring Provider: Tayler Monte, [address] [place] [address], [address]. tel:[phone] OFFICE VISIT ESTAB PT 25 MIN [facility] [address] [place] [address], [id number] , [place] tel: [phone] [facility] Abdominal pain (chief complaint) Abdominal Pain 5 Daryl Manzo. [address] [place], [address], [place]. tel: [phone] Referring Provider: Anais Brito, [address] [place], [address]. tel: [phone] OFFICE/OUTPA TIENT VISIT, EST [email or web address] [address] [place] [address], [id number] , [place] tel: [phone] [facility] finger pain (chief complaint)LLQ pain (chief complaint) Finger painLeft flank pain 4 Lavell Lester. [address] [place] [address] [place], [id number], [place]. tel:[phone] Referring Provider: Tayler Monte, [address] [place], [address]. tel:[phone] [facility] [address] [place] [address], [id number] , [place] tel: [phone] [facility] examination 4 Murtaza Darling. [address] [place] [address], [id number], [place]. tel: [phone] [facility] [address] [place] [address], [id number] , [place] tel: [phone] [facility] examination 4 Luiz Barillas. [address] [place] [address], [address], [place]. tel: [phone] [facility] [address] [place] [address], [id number] , [place] tel: [phone] [facility] Screening examination for pulmonary tuberculosis 4 Lavell Lester. [address] [place] [address], [id number], [place]. tel:[phone] OFFICE VISIT ESTAB PT 25 MIN [facility] [address] [place] [address], [id number] , [place] tel: [phone] [facility] Decreased Appetite (chief complaint) Weight gainAbnormal weight gainAsthmaCo ntraceptionA bnormal weight gainAsthmaUn specified contraceptiv e management 4 Lavell Lester. [address] [place] [address], [id number], [place]. tel:[phone] [facility] [address] [place] [address], [id number] , [place] tel: [phone] [facility] examination 4 Yfn Hanson. [address] [place] [address], [address], [place]. tel: [phone] OFFICE VISIT ESTAB PT 25 MIN [email or web address] [address] [place] [address], [id number] , [place] tel:[phone] [facility] vomiting (chief complaint) Abdominal Pain 4 [facility] Dorian. [address] [place], [place], [id number], [place]. tel:[phone] [email or web address] [address] [place], [place], [id number] , [place] tel:+ [phone] [facility] examination 4 [facility]. [address] [place], [address], . tel:[phone] [facility] [address] [place] [address], [id number] , [place] tel:[phone] [facility] examination 3 [facility]. [address] [place], [address], [place]. tel:[phone] OFFICE VISIT ESTAB PT 25 MIN [email or web address] [address] [place] [address], [id number] , [place] tel:[phone] [facility] LUQ pain (chief complaint)col d symptoms (chief complaint) Upper Respiratory Infection, Acute 3 Boy Angel. [address] [place], [address], [place]. [phone] OFFICE VISIT ESTAB PT 15 MIN [email or web address] [address] [place] [address], [id number] , [place] tel:[phone] [facility] stomach pain (chief complaint) H. pylori duodenitisHe licobacter pylori (H. pylori)Duode nitis (without mention of hemorrhage)H elicobacter pylori (h. pylori) infection 3 [facility] Dorian. [address] [place], [place], [id number], [place]. [phone] [email or web address] [address] [place], [place], [id number] , [place] tel: [facility] AsthmaMigrai neGastritis and duodenitisDe pressionH/O renal calculiH/O tubal ligation 3 Mayra Dionicio. [address] [place], [place], [id number], [place]. tel:[phone] OFFICE VISIT ESTAB PT 25 MIN [facility] [address] [place] [address], [id number] , [place] tel: [phone] [facility] abdominal discomfort (chief complaint) Nephrolithia sisCalculus of kidneyVomiti ng alone 3 [facility] as Dorian. [address] [place], [place], [id number], [place]. tel:[phone] OFFICE VISIT ESTAB PT 25 MIN [facility] [address] [place] [address], [id number] , [place] tel: [facility] abdominal discomfort (chief complaint) Nephrolithia sisCalculus of kidneyVomiti ng alone 3 [facility] as Dorian. [address] [place], [place], [id number], [place]. tel:[phone] [facility] [address] [place] [address], [id number] , US tel: [phone] [facility] examination 2 Yfn Hanson. [address] [place], [address], [place]. tel: [phone] [facility] [address] [place] [address], [id number] , US tel: [phone] [facility] contraception - desires temporary solution (chief complaint) Surveillance of other contraceptiv e method 2 Luigi Stuart. [address] [place], [address], [place]. tel:[phone] [facility] [address] [place] [address], [id number] , [place] tel: [phone] [facility] Depo Injection (chief complaint) Surveillance of other contraceptiv e methodOther general counseling and advice on contraceptiv e management 2 No Information OFFICE VISIT ESTAB PT 15 MIN [facility] [address] [place] [address], [id number] , [place] tel:[phone] [facility] ER (chief complaint) Anorexia 2 Jenn Sujey. [address] [place], [address], [place]. tel:[phone] OFFICE VISIT ESTAB PT 15 MIN [facility] [address] [place] [address], [id number] , [place] tel:[phone] [facility] anorexia (chief complaint) AnorexiaAnor exiaFamily planning servicesAnor exiaOther general counseling and advice on contraceptiv e management 2 Jenn Sujey. [address] [place] [address], [address], [place]. tel:[phone] OFFICE VISIT ESTAB PT 15 MIN [facility] [address] [place] [address], [id number] , [place] tel: [phone] [facility] release form (chief complaint)kid rick stones (chief complaint) Nephrolithia sisCalculus of kidney 2 Jenn Sujey. [address] [place], [address], [place]. tel:[phone] OFFICE VISIT ESTAB PT 15 MIN [facility] [address] [place] [address], [id number] , [place] tel:[phone] [facility] R flank pain (chief complaint) Renal colic 2 Christopher Vaibhav. [address] [place], [place], [id number], [place]. tel:[phone] OFFICE VISIT ESTAB PT 10 MIN [facility] [address] [place] [address], [id number] , [place] tel:[phone] [facility] Wants to establish PCP (chief complaint)col d symptoms (chief complaint) Respiratory Abnormality, OtherCoughCo ugh 2 Jenn Sujey. [address] [place] [address], [address], [place]. tel: [phone] OFFICE VISIT ESTAB PT 25 MIN [facility] [address] [place] [address], [id number] , [place] tel: [phone] [facility] UTI (chief complaint) Renal colicCalculu s of kidneyCalcul us of kidneyRenal colic 2 Christopher Vaibhav. [address] [place], [place], [id number], [place]. tel: [phone] OFFICE VISIT ESTAB PT 10 MIN [facility] [address] [place] [address], [id number] , [place] tel: [phone] [facility] back pain (chief complaint) Renal colicRenal colic 2 Jenn Sujey. [address] [place] [address], [address], [place]. tel:[phone] OFFICE VISIT ESTAB PT 25 MIN [facility] [address] [place] [address], [id number] , [place] tel: [phone] [facility] back pain (chief complaint) Renal calculus 2 Mayra Dionicio. [address] [place], [place], [id number], [place]. tel:[phone] [facility] [address] [place] [address], [id number] , US tel: [phone] [facility] examination 1 Yfn Hanson. [address] [place], [address], [place]. tel: [phone] [facility] [address] [place] [address], [id number] , [place] tel: [phone] [facility] Major depressive affective disorder, single episode, unspecified degreeFAMILY DISRUPTION NEC 1 Fady [place]. , [place], [place]. OFFICE VISIT ESTAB PT 15 MIN [facility] [address] [place] [address], [id number] , [place] tel:+ [phone] [facility] depression (chief complaint)tyler n (chief complaint)cesar ght loss (chief complaint) Depression Dec-0 1 Christopher Esposito. [address] [place], [place], [id number], [place]. tel:[phone] OFFICE VISIT ESTAB PT 25 MIN [facility] [address] [place] [address], [id number] , [place] tel: [phone] [facility] kidney stones / er (chief complaint)abd ominal discomfort (chief complaint) Kidney stonesHelico bacter pylori ab+Seasonal allergies Sep-2 1 Mayra Greenberg. [address] [place] [address], [id number], [place]. tel: [phone] [employer] [address] [place] [address], [id number] , [place] tel: [phone] [facility] examination Nov-0 1 Luiz Barillas. [address] [place] [address], [id number], [place]. tel:[phone] OFFICE VISIT ESTAB PT 25 MIN [employer] [address] [place] [address], [id number] , [place] tel: [phone] [facility] discuss Depo (chief complaint) Loss of weightOther general counseling and advice on contraceptiv e management 3 1 Luigi Stuart. [address] [place] [address], [id number], [place]. tel: [phone] OFFICE VISIT ESTAB PT 25 MIN [employer] [address] [place] [address], [id number] , [place] tel: [phone] [facility] vomiting (chief complaint)abd ominal discomfort (chief complaint) Abdominal pain UNSPCF SITEVomiting Nausea & vomitingLoss of weightUrinar y Tract InfectionCon stipation 0 1 Mayra Greenberg. [address] [place] [address], [id number], [place]. tel:[phone] OFFICE VISIT ESTAB PT 25 MIN [employer] [address] [place] [address], [id number] , [place] tel: [facility] cold symptoms (chief complaint)vom iting (chief complaint) Upper Respiratory Infection, AcuteAsthmaA norexia 1 Dalila Brown. [address] [place] [address], [id number], . tel:[phone] [employer] [address] [place] [address], [id number] , tel: [phone] [facility] No Information Nov-0 7- 0 No Information VISIT [employer] [address] [place] [address], [id number] , [place] tel: [facility] vaginal discharge (chief complaint) No Information Oct-2 0 Luigi Stuart. [address] [place] [address], [address], [place]. tel:[phone] [employer], [address] [place] [address], [id number] , tel: [facility] BP monitoring (chief complaint) Nonspecific low blood pressure reading Oct- 0 No Information VISIT [employer] [address] [place] [address], [id number] , tel: [phone] [facility] No Information Oct- 0 Luigi Stuart. [address] [place], [address], [place]. tel:[phone] VISIT [employer], [address] [place] [address], [id number] , [place] tel: [phone] [facility] No Information Oct-1 0-201 0 Luigi Stuart. [address] [place], [address], [place]. tel:[phone] VISIT [employer] [address] [place] [address], [id number] , tel: [phone] [facility] No Information Aug-0 3-201 0 Luigi Stuart. [address] [place], [address], [place]. tel:[phone] VISIT [email or web address] [address] [place] [address], [id number] , [place] tel: [facility] vaginal discharge (chief complaint) No Information 3 0-201 0 Meyers Narciso. [address] [place] [address], [address], [place]. tel:[phone] [email or web address] [email or web address] [address] [place] [address], [id number] , [place] tel: [phone] [facility] No Information 7-201 0 Meyersluz elena Stuart. [address] [place] [address], [address], [place]. tel:[phone] [email or web address] [email or web address] [address] [place] [address], [id number] , [place] tel: [facility] No Information 3-201 0 Meyersluz elena Stuart. [address] [place] [address], [address], [place]. tel:[phone] VISIT [employer] [address] [place] [address], [id number] , [place] tel: [phone] [facility] No Information 0 1-201 0 Meyers Narciso. [address] [place] [address], [address], [place]. tel:[phone] VISIT [employer] [address] [place] [address], [id number] , [place] tel: [phone] [facility] back pain (chief complaint) No Information 2-201 0 Belle Christine. [address] [place] [address], [address], [place]. tel:[phone] [employer] [address] [place] [address], [id number] , [place] tel: [phone] [facility] examination 6-201 0 No Information VISIT [employer] [address] [place] [address], [id number] , [place] tel: [phone] [facility] No Information 3-201 0 Belle Christine. [address] [place], [address], [place]. tel:[phone] [employer] [address] [place] [address], [id number] , [place] tel:+ [phone] [facility] examination May- 2-201 0 No Information VISIT [email or web address] [address] [place] [address], [id number] , [place] tel: [phone] [facility] vomiting (chief complaint)difatemeh ziness (chief complaint) No Information 1-201 0 Belle Christine. [address] [place], [address], [place]. tel:[employer] [address] [place] [address], [id number] , [place] tel: [phone] [facility] examination May-0 5-201 0 No Information OFFICE VISIT ESTAB PT 15 MIN [employer] [address] [place] [address], [id number] , [place] tel: [phone] [facility] vomiting (chief complaint) Mild hyperemesis gravidarum, antepartum Feb-2 3-201 0 Walser Nanci. [address] [place], [address], [place]. tel:[phone] [employer] [address] [place] [address], [id number] , [place] tel: [phone] [facility] examination Apr-2 2-201 0 No Information OFFICE VISIT ESTAB PT 15 MIN [employer] [address] [place] [address], [id number] , [place] tel: [phone] [facility] vomiting (chief complaint) Mild hyperemesis gravidarum, antepartum Feb-0 8-201 0 Walser Nanci. [address] [place], [address], [place]. tel:[employer] [address] [place] [address], [id number] , [place] tel: [phone] Administrati on - [facility] No Information 0 Services Social. , [place], [address], [place]. [employer] [address] [place] [address], [id number] , tel:+ [phone] [facility] OB Intake (chief complaint) Other specified counseling 0 Katrin Ramon. [address] [place] [address], [id number], [place]. tel:[phone] [employer], [address] [place] [address], [id number] , [place] tel:+ [phone] [facility] OB INTAKE (chief complaint) No Information 0 No Information OFFICE VISIT ESTAB PT 25 MIN [employer] [address] [place] [address], [id number] , [place] tel:+ [phone] [facility] nausea (chief complaint) No Information 0 Luigi Cerdaele. [address] [place] [address], [address], [place]. tel:[phone] [employer], [address] [place] [address], [id number] , [place] tel:+ [phone] [facility] examination 0 No Information [employer] [address] [place] [address], [id number] , [place] tel:+ [phone] [facility] Test (chief complaint) No Information 0 No Information [employer], [address] [place] [address], [id number] , [place] tel:+ [phone] [facility] examination Dec-3 0-200 9 No Information [employer] [address] [place] [address], [id number] , [place] tel:+ [phone] [facility] examination Dec-2 3-200 9 No Information [employer] [address] [place] [address], [id number] , [place] tel:+ [phone] [facility] examination Dec-2 2200 9 No Information OFFICE VISIT ESTAB PT 10 MIN [employer] [address] [place], [place], [id number] , [place] tel:+ [phone] [facility] Vaccine (chief complaint) Other reasons for seeking consultation Dec-0 3200 9 No Information OFFICE VISIT ESTAB PT 15 MIN [employer] [address] [place] [address], [id number] , [place] tel:+ [phone] [facility] seeking preg. (chief complaint) PROCR MGMT CNSL/ADV NEC Sep-2 9-200 9 Belle Christine. [address] [place], [address], [place]. tel:[phone] OFFICE VISIT ESTAB PT 15 MIN [employer] [address] [place] [address], [id number] , [place] tel: [phone] [facility] excessive sweats under arm (chief complaint)abd ominal discomfort (chief complaint) Abdominal pain, unspecified siteAbdomina l pain, unspecified siteASTHMA,U NSPECIFIED TYPE, UNSPECIFIEDP rimary focal hyperhidrosi sAnemia, unspecified Sep-0 4200 9 [facility]. [address] [place] [address], [id number], . tel:[phone] OFFICE VISIT ESTAB PT 25 MIN [employer] [address] [place] [address], [id number] , [place] tel:+ [phone] [facility] acute pelvic pain (chief complaint)vom itigx4 today (chief complaint) Abdominal pain, unspecified site Noel-0 2200 9 No Information OFFICE VISIT ESTAB PT 10 MIN [employer] [address] [place] [address], [id number] , [place] tel:[phone] [facility] LLQ pain (chief complaint) Abdominal pain, left lower quadrant German-1 6200 9 [facility]. [address] [place] [address], [id number], . tel:[phone] OFFICE VISIT ESTAB PT 15 MIN [employer] [address] [place] [address], [id number] , [place] tel:+ [phone] [facility] IUD insertion (chief complaint) Other specified contraceptiv e management Dec-2 0-200 8 Meyers Narciso. [address] [place] [address], [address], [place]. tel:[phone] OFFICE VISIT ESTAB PT 15 MIN [employer] [address] [place] [address], [id number] , [place] tel: [phone] [facility] vomiting (chief complaint)abd ominal discomfort (chief complaint) No Information Sep-0 7-200 8 No Information OFFICE VISIT ESTAB PT 10 MIN [email or web address] [address] [place] [address], [id number] , [place] tel: [phone] [facility] vomiting (chief complaint)diz ziness (chief complaint) No Information May-3 1200 8 No Information OFFICE VISIT ESTAB PT 15 MIN [email or web address] [address] [place] [address], [id number] , [place] tel: [phone] [facility] diarrhea, black stools (chief complaint)vom iting (chief complaint) No Information May-1 0-200 8 No Information [employer] [address] [place] [address], [id number] , [place] tel: [phone] [facility] No Information Dec- 0-200 7 Catalina Lion. , [place], [place]. Consulting Provider: Amisha Arnold [place]. [employer] [address] [place] [address], [id number] , [place] tel: [phone] [facility] No Information Dec-0 1-200 7 Murtaza Perezen. [address] [place] [address], [id number], [place]. tel:[phone] [employer] [address] [place] [address], [id number] , [place] tel: [phone] [facility] No Information Sep-2 6-200 7 No Information [employer] [address] [place] [address], [id number] , [place] tel: [phone] [facility] No Information Sep-1 8-200 7 No Information [employer] [address] [place], [place], [id number] , [place] tel: [phone] [facility] No Information 5-200 7 No Information [facility] [address] [place] [address], [id number] , [place] tel: [phone] [facility] No Information Aug-0 7-200 7 No Information ASSESSMENT [facility] [address] [place] [address], [id number] , [place] tel: [phone] [facility] No Information 9200 7 Kellyser Nanci. [address] [place], [address], [place]. tel: [phone] VISIT PK [email or web address] [address] [place] [address], [id number] , [place] tel: [phone] [facility] No Information 7200 7 No Information VISIT [facility] [email or web address] [address] [place] [address], [id number] , [place] tel: [phone] [facility] No Information 7 Kellyser Nanci. [address] [place], [address], [place]. tel:[phone] OFFICE VISIT ESTAB PT 15 MIN [email or web address] [address] [place] [address], [id number] , [place] tel: [facility] No Information 8200 7 [facility]. [address] [place] [address], [id number], [place]. tel:[phone] OFFICE VISIT ESTAB PT 40 MIN [employer] [address] [place] [address], [id number] , [place] tel: [phone] [facility] No Information 4200 7 Kellyser Nanci. [address] [place], [address], [place]. tel: [phone] ASSESSMENT [facility] [address] [place] [address], [id number] , tel: [phone] [facility] No Information 7 No Information [employer], [address] [place] [address], [id number] , tel:+ [phone] [facility] No Information Services Social. , [place], [place], [facility], . OFFICE VISIT ESTAB PT 15 MIN [employer], [address] [place] [address], [id number] , tel:+ [phone] [facility] No Information 7 No Information [employer], [address] [place] [address], [id number] , tel:+ [phone] [facility] Anemia, unspecifiedA STHMA,UNSPEC IFIED TYPE, UNSPECIFIED No Information Family History Family Member Type Diagnosis Age At Onset Mother Problem (finding) renal stone Sister Problem (finding) asthma Father Problem (finding) asthma Sister Problem (finding) asthma Sister Problem (finding) Alive and well Brother Problem (finding) Alive and well Brother Problem (finding) Alive and well Immunizations Vaccine Date Status Comments Flu Vaccine ([id number]) administered Sour ce: New Immunization Record Flu (age 3 and above) administered Note: VIS given, S/E and contraindications reviewed, denies allergies ; Source: New Immunization Record hep B (ped/adol, 3 dose) administered Nicole rce: New Immunization Record Payers Payer name Insurance type Covered republican ID Authoriza tion(s) [facility] [employer] [place] [id number] Medicaid [id number] [facility] [employer] CI [id number] [facility] [employer] CI [id number] Social History Type Description Quantity Date Captured Comments Alcohol Use Details Unknown Caffeine Use Details Unknown Tobacco Use Status No Information Smoking Status No Information Sex Female Sexual Orientation Straight or heterosexual Gender Identity Female Chief Complaint And Reason For Visit No Information Reason For Referral Reason For Referral No Information Plan Of Treatment Date Type Action Status Goal Hepatitis C screening due Goal Unhealthy [...] Lifestyle education regardin g diet completed Goal Hepatitis C screening due Goal Unhealthy [...] due Goal HPV. Due on due Goal Hepatitis C Screen due Goal Pap/HPV testing. Due on due Goal Pap/HPV testing. Due on due Goal Hepatitis C Screen due Goal Pap/HPV testing. Due on due Goal Lifestyle education regardin g diet completed Goal HIV screen due Goal Pap/HPV testing. Due on due Goal Dietary manageme nt education, guidance, and counseling completed Goal Tdap. Due on due Goal Suicide [...] due Goal Tdap. Due on due Goal Pap/HPV testing. Due [...] Goal Td vaccine. Due on due Goal Influenza vaccin e. [...] due Goal Tobacco cessation counseling completed Goal PHQ9. Due on due Goal Tdap. [...] [facility] [address] [place] [address], [address] [phone] Ordered: Referrals: Obstetrics and Gynecology. [facility] [...] Order: Lab Order TSH Base line KH (449), Ordered on: Ordered Future Order: Lab Order Vitamin D 25 Hydroxy Level ([id number]), Ordered on: Ordered Future Order: Lab Order Urinalys is That Reflexes To Microscopic (1162), Ordered on: Ordered Future Order: Lab Order Magnesiu m Level (369), Ordered on: Ordered Future Order: Lab Order STOOL CU LTURE ([id number]), Ordered on: Ordered Future Order: Radiol ogy Order MRI: Thoracic Spine (MRITSPINE), Sent on: Sent Future Order: Radiol ogy Order US (Ultrasound): (US), Appointment on: , Sent on: Sent Future Order: Lab Order CREATINI NE/CR ([id number]), Ordered on: Ordered Future Order: Lab Order Urinalys is ([id number]), Ordered on: Ordered Future Order: Lab Order Helicoba ct H Pylori Breath ([id number]), Ordered on: Ordered Future Order: Radiol ogy Order US ABD COMP, [id number] (US ABD COM), Ordered on: Ordered Future Order: Radiol ogy Order RAD EXAM FINGER(S) 2V, 93616 (XR FINGER), Ordered on: Ordered Future Order: Radiol ogy Order US ABD COMP, [id number] (US ABD Petrabytes), Appointment on: , Sent on: Sent Future Order: Lab Order HELICOBA CTER FECAL ([id number]), Ordered on: Ordered Future Order: Lab Order STOOL CU LTURE ([id number]), Ordered on: Ordered Future Order: Lab Order HELICOBA CTER PYLORI - IGG ([id number]), Ordered on: Ordered Future Order: Lab Order TISSUE T RANSGLUTINASE IGG ([id number]), Ordered on: Ordered Future Order: Lab Order TISS TRA NSGLUTAMINASE IGA (1334), Ordered on: Ordered Future Order: Lab Order CBC (W D IFF AND PLATELET) (1979), Sent on: Sent Future Order: Lab Order SCREEN F OR BETA HEMOLYTIC STREP B (5022), Appointment on: , Sent on: Sent Future Order: Lab Order Urine Di pstick ([id number]), Appointment on: Ordered Future Order: Lab Order FOBT Yesi gnostic ([id number]), Appointment on: Ordered Future Order: Lab Order AFP Quad ([id number]), Appointment on: , Sent on: Sent Future Order: Lab Order Urine Di pstick ([id number]), Appointment on: Ordered Future Order: Lab Order Urine Pr egnancy Test ([id number]), Appointment on: Ordered Future Order: Lab Order Urine Pr egnancy Test ([id number]), Appointment on: Ordered Future Order: Lab Order Urine Pr egnancy Test ([id number]), Appointment on: Ordered Future Order: Lab Order [...] Order: Lab Order Urine Pr egnancy Test ([id number]), Appointment on: Ordered Future Order: Lab Order Urine Di pstick ([id number]), Appointment on: Ordered Future Order: Lab Order Urine Pr egnancy Test ([id number]), Appointment on: Ordered Future Order: Lab Order Urine Pr egnancy Test ([id number]), Appointment on: Ordered History Of Present Illness Encounter Date Complaint History Of Prese nt Illness Follow Up of Anxiety Note BH warm hand off done todayPt states her anxiety is out of controlShe vomits daily due to anxietyStopped going to PT for leg weakness, has not made neuro appointmentDoes not have her voicemail set up Comments: Pt has had ongoing anxiety and [...] weakness Patient was s een at [facility] for left flank pain and was found to have right leg weakness while in the ER. Patient reports pain rating 7/10, describing the pain as sharp in nature. Additionally, the patient reports experiencing numbness and tingling sensation in her feet. She expresses difficulty with walking and is requesting a referral for physical therapy.GEOPHYSICAL OBSERVER note: pt was seen Neurology in the Hospital. MRI of th e brain, cervical/thoracic/lumber spine were all normal. Labs were also normal. No definite etiology for her right leg weakness causing her to have trouble walking was found. Pt was refer to physical therapy for rehabilitation. pt requesting referral to physical therapy Telehealth Patient has cons ented to this phone visit during . add Pt has upcoming appt with geotechnical operating engineer Dr. Phong Griffith, out of [facility] on 01/09 reports office needs a referral. Pt also wanted to share that she has [employer] insurance. . The telephone visit was conducted during the . Patient consented to telephone visit todayTime of [...] Telemedicine phone call visit conducted during the PandemicTelehealth visit started: 4:41pmvomiting for 2 daysvomited every 2 hoursback pain since 11pmTaking Toradol Abd pain - upperLMP - 06/05/2019I called the [facility] to sign out patient to triage [...] etoh no sh lives w and kids. 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 trying to conceive Had a tubal r eversal 3 months ago in [place]. Here to see why she has not [...] Pain Had btl 2d ag o in [place], crying moaning, shakin in pain. back pain Onset: 1 day ago . Severity level is severe. The problem is worsening. Location of pain is lower back.There is no radiation of pain. Context: no injury. Symptoms are aggravated by ascending stairs, daily activities, descending stairs, lifting, lying/rest, rolling over in bed and walking. back pain (comments) GEOPHYSICAL OBSERVER note: Pt presents with back pain since Saturday night. The patient does not remember a mechanism of injury. The pain began mild but now is 10/10, she has not taken anything at home from it. Tried only heat for pain relief and it did not help. Follow Up of Reyna mo (comments) [facility] are no prescribers there for med adjustments. reports minimal effect from buspar 5mg BID. continues with episodes of palpitations, skipped" heartbeats with her anxiety.she is also having continued R flank pain d/t recurrent renal stones. has ? hx medullary sponge kidney. has not seen urology or nephrology in years. [facility]. Follow Up of Depression Follow Up of Reyna mo (comments) needs note for continued FMLA from work. continues psych meds but has been unable to make appts with d/t no rides from [employer]. unable to get in toufch with local [...] group which has been helpful. 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 Follow Up of gastritis Follow Up of Depression This is a follow up visit. There is improvement of initial symptoms. The patient does not present with depressed mood or diminished interest or pleasure. abdominal pain Onset: 1 Year. T he [...] relationship with her mother-this causes her pain. 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 Related to Major depressive disorder, single episode, unspecified Please keep your harvinder t w/ BHContinue medicationFollow-up 2 weeksGo to ER or call 911 if any SI/HI Related to Major depressive disorder, recurrent, unspecified Increase sertraline to 100mgPt will see Brenda today at [address] [place] [address] seeing family counselor (located on [facility])Able to contract for [...] to Epig astric pain call therapist on [facility] to make urgent appointmentescitalopram [...] fo r now Related to Finger pain Increase activity level Patient understood a nd made informed decision Reviewed medications Take new medication as prescribe d Patient understood a nd made informed decision Continue current medication Reviewed medications Go to ER if risk of harm [...]
[2024-12-25 13:10] VITALS: BP 132/74; PULSE 122; RESP 18; TEMP 36.4; O2SAT 98; BMI 24.9
--- NOTE | 2024-12-25 13:10 | MHC.PC.OV ---
Vital Signs 12/25/24 13:10 Height 5 ft 6 in Weight 154 lb 8 oz BMI 24.9 BP 132/74 Blood Pressure Location Lt brachial Position Sitting Respiration 18 Pulse 122 H Pulse Source Pulse Oximeter Temp 97.5 F Temp Source Temporal Artery Scan Pulse Oximetry (%) 98 Oxygen Delivery Method Room Air Intake Visit Reasons: 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 Operator Required: No Accompanied by: Self / Same As Patient Allergies ceftriaxone Allergy (Verified 12/25/24 13:11) Hives Iodinated Contrast Media (Contrast Dye) Allergy (Verified 12/25/24 13:11) Hives Medication List - Last Reconciled 12/25/24 by Yuriy Mann MD acetaminophen (Tylenol Extra Strength) 1,000 mg (2 x 500 mg) PO Q8H PRN Tobacco use date assessed: 12/25/24 Dental Screening Dental Screen Date: 12/25/24 Did you have a dental visit in the last 12 months?: No Did you have a dental problem in the last 6 months where you did not have access to dental care?: No Was dental information given to patient?: No HPI HPI Comments History of Present Illness Details The patient is a 39-year-old female presenting to the [facility]. The patient was seen previsouly by PCP one hour away but sincce she recently moved to the area she would like to be seen in our office. She reports experiencing heart palpitations, excessive sweating, and a weight loss of 23 pounds over the past month. The patient was diagnosed with hyperthyroidism during a fertility evaluation when she was unable to conceive for seven years. She was initially prescribed medication but discontinued it due to starting IVF treatment, which eventually led to the of her daughter. Since moving, she has not had a regular doctor and has relied on emergency room visits for care. The patient also has a history of kidney stones and colitis, which were diagnosed during a previous emergency room visit. She is currently managing her kidney stones with medication and has a follow-up appointment scheduled. Family history is significant for colon cancer in her uncle, who at age 43, and heart problems in her grandfather and father. 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 1. Little interest or pleasure in doing things: not at all 2. Feeling down, depressed, or hopeless: not at all 3. Trouble falling or staying asleep, or sleeping too much: several days 4. Feeling tired or having little energy: several days 5. Poor appetite or overeating: several days 6. Feeling bad about yourself - or that you are a failure or have let yourself or your family down: not at all 7. Trouble concentrating on things, such as reading the newspaper or watching television: not at all 8. Moving or speaking so slowly that other people could have noticed. Or the opposite - being so fidgety or restless that you have been moving around a lot more than usual: not at all 9. Thoughts that you would be better off or of hurting yourself in some way: not at all Total score: 3 Source: Developed by Drs. Dionicio Esteban, Chana Montgomery, Supa Lemons and colleagues, with an educational rosalino from [employer]. Thrive Questionnaire Date Thrive assessed: 12/25/24 I am a: Patient What is your living situation today?: I have a steady place to live Within the past 12 months, did the food you bought not last and you didn't have the money to get more?: Never true Within the past 12 months, did you worry whether your food would run out before you got money to buy more?: Never true Do you have trouble paying for medicines?: No Do you have trouble getting transportation to medical appointments?: No Do you have trouble paying your heating and electricity bill?: No Do you have trouble taking care of your child, family member or friend?: No Do you have trouble with day-to-day activities such as bathing, preparing meals, shopping, managing finances, etc.?: No Are you currently unemployed and looking for a job?: No Are you interested in more education?: No Please select the resources that you would like help with: None THRIVE Score: 0 AUDIT C Alcohol Use Questionnaire (AUDIT-C) 1. How often do you have a drink containing alcohol?: Never Total Score: 0 RODOLFO-7 AMB Questionnaire RODOLFO-7 Feeling nervous, anxious, or on edge: 1 = Several days Source: Developed by Drs. Dionicio Esteban, Chana Montgomery, Supa Lemons and colleagues, with an educational rosalino from [employer]. Review of Systems Const Details: Positives besides what was mentioned in HPI are in BOLD Constitutional: No Weight Change, No Fever, No Chills, No Night Sweats, No Fatigue, No Malaise ENT/Mouth: No Hearing Changes, No Ear Pain, No Nasal Congestion, No Sinus Pain, No Hoarseness, No sore throat, No Rhinorrhea, No Swallowing Difficulty Eyes: No Eye Pain, No Swelling, No Redness, No Foreign Body, No Discharge, No Vision Changes Cardiovascular: No Chest Pain, No SOB, No PND, No Dyspnea on Exertion, No Orthopnea, No Claudication, No Edema, No Palpitations Respiratory: No Cough, No Sputum, No Wheezing, No Smoke Exposure, No Dyspnea Gastrointestinal: No Nausea, No Vomiting, No Diarrhea, No Constipation, No Pain, No Heartburn, No Anorexia, No Dysphagia, No Hematochezia, No Melena, No Flatulence, No Jaundice Genitourinary: No Dysmenorrhea, No DUB, No Dyspareunia, No Dysuria, No Urinary Frequency, No Hematuria, No Urinary Incontinence, No Urgency, No Flank Pain, No Urinary Flow Changes, No Hesitancy Musculoskeletal: No Arthralgias, No Myalgias, No Joint Swelling, No Joint Stiffness, No Back Pain, No Neck Pain, No Injury History Skin: No Skin Lesions, No Pruritis, No Hair Changes, No Breast/Skin Changes, No Nipple Discharge Neuro: No Weakness, No Numbness, No Paresthesias, No Loss of Consciousness, No Syncope, No Dizziness, No Headache, No Coordination Changes, No Recent Falls Psych: No Anxiety/Panic, No Depression, No Insomnia, No Personality Changes, No Delusions, No Rumination, No SI/HI/AH/VH, No Social Issues, No Memory Changes, No Violence/Abuse Hx., No Eating Concerns Heme/Lymph: No Bruising, No Bleeding, No Transfusions History, No Lymphadenopathy Endocrine: No Polyuria, No Polydipsia, No Temperature Intolerance Physical exam (Primary Care) Vital Signs: Last Vital Signs Temp 97.5 F 12/25/24 13:10 Pulse 122 H 12/25/24 13:10 Resp 18 12/25/24 13:10 Pulse Ox 98 12/25/24 13:10 Oxygen Delivery Method Room Air 12/25/24 13:10 BMI result Body Mass Index 24.9 Tobacco/Smoking Status: Tobacco use Status Tobacco use date assessed 12/25/24 12/25/24 13:28 Patient Tobacco Use Status Never used Tobacco 12/25/24 13:28 e-Cigarette/Vaping Use Never Used 12/25/24 13:28 PHQ-9: PHQ-9 Score PHQ-9: Total score 3 12/25/24 13:58 Thrive Assessment: Date of Thrive Assessment Date Thrive assessed 12/25/24 12/25/24 13:28 Const Other: Pertinent findings are in BOLD GENERAL APPEARANCE NAD, activity normal for age, well developed/ well nourished, no cyanosis, pallor, or diaphoresis. EYES lids/conjunctiva normal. EARS/NOSE/THROAT Mucous membranes moist, nares normal, lips/teeth normal uvula midline without oral pharyngeal erythema, exudate or swelling TMs normal bilaterally. No lymphangitis/lymphedema. HEAD/NECK normocephalic atraumatic, no facial trauma, neck is supple. RESPIRATORY respiratory effort normal, speaks in full sentences, no tripod position, no accessory muscle use. Lungs clear to auscultation without rhonchi, wheezes, rales CARDIAC Regular rate and rhythm, no edema. ABDOMINAL Soft, ND/NT. No evidence of fluid wave. No pulsatile masses on exam, rebound tenderness, Pa sign or pain over Mcburney's point. MUSCLES/EXTREMITIES No abnormal range of motion, no swelling. SKIN Warm, pink and dry. No rashes, dermatoses, petechiae or lesions. NEUROLOGICAL Speech is clear and appropriate. Normal level of consciousness. Gait and coordination are normal. 5/5 strength in all extremities. PSYCH Normal mood and affect. Judgement/competence is appropriate Coding Level of Care Code New Pt Level 4 (55590) New Pt Prev Care 18-39yr(70560 Diagnoses Tachycardia R00.0 Hyperthyroidism E05.90 Healthcare maintenance Z00.00 Time Spent (min) 30 Assessment & Plan Assessment & Plan (1) Tachycardia: Code(s): R00.0 - Tachycardia, unspecified Category: Medical Plan: Metorpolol succ 12.5 mg daily. Evaluate underlying thyroid function as under Hyperthyroidism A/P. (2) Hyperthyroidism: Code(s): E05.90 - Thyrotoxicosis, unspecified without thyrotoxic crisis or storm Category: Medical Plan: Endocrinology referral. TSH. Thyroid US. (3) Healthcare maintenance: Code(s): Z. - Encounter for general adult medical examination without abnormal findings Category: Medical Plan: CBC, CMP, Lipid panel, A1C, TSH w T4, vit D. Ordered today. Shingles 2 doses when >50 yo. at 50. COVID: two doses. Completed. Tdap: Will bring records next visit. Pneumococcal: 19-64. NI. Flu vaccine: Declined. Colonoscopy: 45-75. Uncle dies from colon cancer at 43. referral placed. AAA: 65 -75. NI. CT lun - 80. NI. HPV: Referred admitting coordinator HIV: Ordered today. HBV: Ordered today. HCV: Ordered today. Dexa: NI. Mammogram: NI Plan I discussed with the patient the diagnosis of hyperthyroidism and the associated symptoms such as weight loss and palpitations. We talked about starting metoprolol to manage her heart rate and the importance of seeing an deli clerk for further management. I also explained the need for a colonoscopy due to her family history of colon cancer and provided a referral for this screening. Orders: Orders Vitamin D 25-OH (D2 and D3) Today E05.90 - Thyrotoxicosis, unspecified without thyrotoxic crisis or storm Parathyroid Hormone Intact Today E05.90 - Thyrotoxicosis, unspecified without thyrotoxic crisis or storm Thyroid Stimulating Immunoglob Today E05.90 - Thyrotoxicosis, unspecified without thyrotoxic crisis or storm Lipid Panel Today Z00.00 - Encounter for general adult medical examination without abnormal findings Hepatitis B Surface Antibody Today Z.00 - Encounter for general adult medical examination without abnormal findings Hepatitis B Surface Antigen Today Z00.00 - Encounter for general adult medical examination without abnormal findings HIV Ab/Ag Today Z00.00 - Encounter for general adult medical examination without abnormal findings AMB EKG-In Office Today R00.0 - Tachycardia, unspecified TSH reflex Free T4 Today E05.90 - Thyrotoxicosis, unspecified without thyrotoxic crisis or storm thyroid Today E05.90 - Thyrotoxicosis, unspecified without thyrotoxic crisis or storm Hemoglobin A1c Today Z00.00 - Encounter for general adult medical examination without abnormal findings Hepatitis B Core Antibody Today Z00.00 - Encounter for general adult medical examination without abnormal findings Hepatitis C Antibody Reflex Today Z00.00 - Encounter for general adult medical examination without abnormal findings Referrals AUTOMOTIVE SERVICE DIRECTOR Referral Z00.00 - Encounter for general adult medical examination without abnormal findings Endocrinology Referral E05.90 - Thyrotoxicosis, unspecified without thyrotoxic crisis or storm Open Access Screening Colonoscopy Referral Z12.11 - Encounter for screening for malignant neoplasm of colon, Z12.12 - Encounter for screening for malignant neoplasm of rectum Medications: New metoprolol succinate ER 12.5 mg (1/2 x 25 mg) PO DAILY 90 tabs 0RF
--- OUTSIDE RECORDS SUMMARY | 2024-12-25 15:40 | XMS_ITS | Clinical Summary ---
Author Organization [facility] Address [address] [address] Phone Care Team Providers Care Bag Making Machine Operator Name Role Phone Pcp, Not Required [...] 18 g 5 Active inhaler spacing device (AEROCHAMBER,BREAT HERITE) Spcr Inhale 1 each into the lungs every 4 (four) hours as needed (Use with your albuterol inhaler). 1 each 5 Active tamsulosin (FLOMAX) 0.4 mg Cap Take 1 capsule (0.4 mg total) by mouth daily for 10 days. 10 capsule 5 Active ondansetron (ZOFRAN-ODT) 4 MG disintegrating tablet Take 1 tablet (4 mg total) by mouth every 8 (eight) hours as needed for nausea. 12 tablet 5 Active oxyCODONE 5 MG immediate release tabletIndications: Traumatic complete tear of right rotator cuff, initial encounter Take 1-2 tablets (5-10 mg total) by mouth every 4 (four) hours as needed for pain (specific location in comments) (postop shoulder pain). Partial fill ok 30 tablet 5 Active oxyCODONE 5 MG immediate release tabletIndications: H/O repair of right rotator cuff Take 1 tablet (5 mg total) by mouth every 4 (four) hours as needed for pain (specific location in comments) (postop shoulder pain). Partial fill ok 24 tablet Active Active Problems No known active problems Encounters Date Type Department Care Team Description 12/23/2024 Telephone [facility] [address] [place] [address] Karyna Aguirre, PT Appointment 12/18/2024 11:30 AM EDT Office Visit [facility] [address] [place] [address] Nikita Mireles PA-C Clark, Elizabeth Quinn, PT Weakness of right shoulder (Primary Dx) 12/16/2024 10:00 AM EDT Office Visit [facility] [address] [place] [address] Nikita Mireles PA-C Clark, Elizabeth Quinn, PT Weakness of right shoulder (Primary Dx) 12/09/2024 10:15 AM EDT Office Visit [facility] [address] [place] [address] Nikita Mireles PA-C Bell, Ross, PT Weakness of right shoulder (Primary Dx) 12/04/2024 Telephone [facility] [address] [place] [address] Karyna Aguirre, PT Upcoming appointment 12/02/2024 9:40 AM EDT Office Visit [facility] Orthopedics & Sports Medicine [address] [place] [address] Nikita Mireles PA-C H/O repair of right rotator cuff (Primary Dx) 11/26/2024 8:45 AM EDT Office Visit [facility] [address] [place] [address] Nikita Mireles PA-C Bell, Ross, PT Weakness of right shoulder (Primary Dx) 11/17/2024 6:36 PM EDT - 11/17/2024 11:43 PM EDT Emergency [facility] [address] [place] [address] Kale Cabrera MD Discharge Disposition: Home or Self Care 11/13/2024 Telephone [facility] Orthopedics & Sports Medicine [address] [place] [address] Brandee Vang RN Pain control 11/12/2024 12:48 PM EDT Anesthesia Event OR Admitting Dept - Virtual Department [address] [place] [address] May Camarillo MD 11/12/2024 12:35 PM EDT - 11/12/2024 2:23 PM EDT Surgery OR Admitting Dept - Virtual Department [address] [place] [address] Jalen Sweeney, ARTHROSCOPIC REPAIR ROTATOR CUFF SHOULDER 11/12/2024 10:01 AM EDT - 11/12/2024 4:15 PM EDT Hospital Encounter OR Admitting Dept - Virtual Department [address] [place] [address] Jalen Sweeney DO Discharge Disposition: Home or Self Care 11/12/2024 Procedure Pass OR Admitting Dept - Virtual Department [address] [place] [address] 11/11/2024 8:00 AM EDT Pre-Admission Testing Pre Procedure Evaluation [address] [place] [address] Jalen Sweeney DO 10/21/2024 8:40 AM EDT Office Visit [facility] Orthopedics & Sports Medicine [address] [place] [address] Nikita Mireles PA-C Labral tear of long head of right biceps tendon, sequela (Primary Dx); Traumatic incomplete tear of right rotator cuff, sequela; Preop examination 10/08/2024 4:13 PM EDT - 10/08/2024 8:03 PM EDT Emergency [facility] [address] [place] [phone] Harika Wright PA-C Discharge Disposition: Home or Self Care 10/08/2024 Procedure Pass [facility], [facility] [address] [place] [address] 09/30/2024 9:53 AM EDT - 09/30/2024 11:59 PM EDT Hospital Encounter [facility] [address] [place] [address] Jalen Sweeney, DO Discharge Disposition: Home or Self Care from [...] Care Team (Late st Contact Info) Description 12/28/2024 10:00 AM EDT Office Visit [address] [address] Nikita Mireles PA-C [address] [place] [address] [place] [address] Karyna Aguirre, PT 8 [place] [address] 12/30/2024 10:00 AM EDT Office Visit [address] [place] [address] Nikita Mireles PA-C [address] [place] [address] [place] [address] Karyna Aguirre, PT 8 [place] [address] 12/30/2024 11:15 AM EDT Office Visit [facility] Orthopedics & Sports Medicine [address] [place] [address] Jalen Sweeney DO [address] [place] [address] Orthopedics & Sports [place], [place] [address] 01/04/2025 10:00 AM EDT Office Visit [address] [place] [address] Nikita Mireles PA-C [address] [place] [address] [place] [address] Karyna Aguirre, PT 8 [place] [address] 01/06/2025 10:00 AM EDT Office Visit [address] [place] [address] Nikita Mireles PA-C [address] [place] [address] [place] [address] Karyna Aguirre, PT 8 [place] [address] 01/11/2025 10:00 AM EST Office Visit [address] [place] [address] Nikita Mireles PA-C [address] [place] [address] [place] [address] Karyna Aguirre, PT 8 [place] [address] 01/18/2025 11:30 AM EST Office Visit [address] [place] [address] Nikita Mireles PA-C [address] [place] [address] [place] [address] Karyna Aguirre, PT 8 [place] [address] 02/10/2025 10:00 AM EST Office Visit [address] [place] [address] Nikita Mireles PA-C [address] [place] [address] [place] [address] Karyna Aguirre, PT 8 [place] [address] 02/12/2025 11:30 AM EST Office Visit [address] [place] [address] Nikita Mireles PA-C [address] [place] [address] [place] [address] Karyna Aguirre, PT 8 [place] [address] 02/17/2025 10:00 AM EST Office Visit [address] [place] [address] Nikita Mireles PA-C [address] [place] [address] [place] [address] Karyna Aguirre, PT 8 [place] [address] 02/19/2025 1:00 PM EST Office Visit [address] [place] [address] Nikita Mireles PA-C [address] [place] [address] [place] [address] Karyna Aguirre, PT 8 [place] [address] 02/22/2025 10:00 AM EST Office Visit [address] [address] Nikita Mireles PA-C [address] [place] [address] [place] [address] Karyna Aguirre, PT 8 [place] [address] 02/24/2025 10:45 AM EST Office Visit [address] [place] [address] Nikita Mireles PA-C [address] [place] [address] [place] [address] Karyna Aguirre, PT 8 [place] [address] Health Maintenance Due Date Last Done Comments Adult Td,Tdap Booster 1986 DEPRESSION SCREENING 1998 HEPATITIS C SCREENING 2004 HIV ONE-TIME SCREENING (18-6 5 YEARS) 2004 PAP SMEAR 06/25/2007 INFLUENZA VACCINE (#1) 2024 COVID-19 VACCINE (2024-2 6 season) 2024 SCREENING FOR DIABETES 11/18/2027 11/17/2024 [...] this topic Medical Devices Implanted Type Area Fruit Harvest Machine Operator Device Identifier Shelf Expiration Date Model / Serial / Lot Breast Breast Franklin All-Suture 1.8mm Q-Fix Knotless W/1 Ub Sut Bl - [id number] Implanted:Qty: 1 on 11/12/2024 by Jalen Sweeney DO at [facility] Right: Shoulder [employer] [id number] 07/18/2027 [id number] / / [id number] Franklin All-Suture 2.8mm Q-Fix W/2 Minitape Suture Blue And Cobraid White - [id number] Implanted:Qty: 1 on 11/12/2024 by Jalen Sweeney DO at [facility] Right: Shoulder [employer] 03/20/2027 [id number] / / [id number] Franklin Suture 4.5mm Arthroscopy Reelx Stt Peek Ss Core Knotless Shapr Tip Expandable Bx/5ea - [id number] Implanted:Qty: 1 on 11/12/2024 by Jalen Sweeney DO at [facility] Right: Shoulder [employer] [id number] 07/28/2026 [id number] / / [id number] Franklin Suture 4.5mm Arthroscopy Reelx Stt Peek Ss Core Knotless Shapr Tip Expandable Bx/5ea - [id number] Implanted:Qty: 1 on 11/12/2024 by Jalen Sweeney DO at [facility] Right: Shoulder [employer] [id number] 05/20/2026 [id number] / / [id number] Procedures Procedure Name Priority Date/Time Associated Diagnosis [...] AIRWAY PLACEMENT Routine 11/12/2024 2:40 PM EDT CO SURGICAL ARTHROSCOPY SHOULDER XTNSV DBRDMT 3+ 11/12/2024 12:48 PM EDT Labral tear of long head of right biceps tendon, sequela Traumatic incomplete tear of right rotator cuff, sequela Special Needs 05/19 W/C approval in chart ok to schedule KP3/11 LM to schedule KP CO SHLDR ARTHROSCOP,PART ACROMIOPLAS 11/12/2024 12:48 PM EDT Labral tear of long head of right biceps tendon, sequela Traumatic incomplete tear of right rotator cuff, sequela Special Needs 05/19 W/C approval in chart ok to schedule KP3/11 LM to schedule KP CO ARTHROSCOPY SHOULDER SURGICAL BICEPS TENODESIS 11/12/2024 12:48 PM EDT Labral tear of long head of right biceps tendon, sequela Traumatic incomplete tear of right rotator cuff, sequela Special Needs 05/19 W/C approval in chart ok to schedule KP3/11 LM to schedule KP CO SHLDR ARTHROSCOP,SURG,W/RO TAT CUFF REPR 11/12/2024 12:48 PM EDT Labral tear of long head of right biceps tendon, sequela Traumatic incomplete tear of right rotator cuff, sequela Special Needs 05/19 W/C approval in chart ok to schedule KP3/11 LM to schedule KP ANES BLOOD PATCH PERFORMABLE Routine 11/12/2024 12:25 PM EDT CO ANESTHESIA PERIPHERAL BLOCK PLACEHOLDER Routine 11/12/2024 12:25 [...] included. WBC 10.34 4.00 - 11.00 K/uL [facility] RBC 4.28 4.00 - 5.20 M/uL [facility] HGB 12.4 12.0 - 16.0 g/dL [facility] HCT 37.2 36.0 - 46.0 % [facility] PLT 335 150 - 450 K/uL [facility] MCV 86.9 80.0 - 100.0 fL [facility] MCH 29.0 27.0 - 31.0 pg [facility] MCHC 33.3 32.0 - 36.0 g/dL [facility] RDW 12.0 11.5 - 14.5 % [facility] MPV 10.7 8.4 - 12.0 fL [facility] NRBC 0.00 0.00 /100 WBCs [facility] ABSOLUTE NRBC 0.00 0.00 K/uL [facility] DIFF METHOD Auto [facility] NEUTS 65.5 48.0 - 76.0 % [facility] LYMPHS 27.9 18.0 - 41.0 % [facility] MONOS 5.8 4.0 - 11.0 % [facility] EOS 0.3 0.0 - 5.0 % [facility] BASOS 0.2 0.0 - 1.5 % [facility] Granulocytes, immature (%) 0.3 0.0 - 0.9 % [facility] ABSOLUTE NEUTS 6.77 1.92 - 7.60 K/uL [facility] ABSOLUTE LYMPHS 2.89 0.72 - 4.10 K/uL [facility] ABSOLUTE MONOS 0.60 0.16 - 1.10 K/uL [facility] ABSOLUTE EOS 0.03 0.00 - 0.50 K/uL [facility] ABSOLUTE BASOS 0.02 0.00 - 0.15 K/uL [facility] Granulocytes, immature 0.03 0.00 - 0.09 K/uL [facility] Blood 11/17/2024 9:54 PM EDT 11/17/2024 9:57 PM EDT us Kale Cabrera MD LAB BLOOD ORDERABL ES Final Result [facility] [address] [place] [address] * Basic metabolic panel (11/17/2024 9:54 PM EDT) Only the most recent of2 resultswithin the time period is included. SODIUM 141 133 - 146 mmol/L [facility] CHLORIDE 106 96 - 108 mmol/L [facility] POTASSIUM 4.0 3.3 - 5.1 mmol/L [facility] CO2 23 21 - 35 mmol/L [facility] BUN 8 6 - 19 mg/dL [facility] CREATININE 0.50 0.5 - 1.5 mg/dL [facility] GLUCOSE 90 70 - 99 mg/dL [facility] CALCIUM 9.6 8.4 - 10.3 mg/dL [facility] EGFR >120 >59 mL/min/1.7 3m2 [facility] Comment:Estimated glomerular filtration rate calculated using the CKD-EPI refit equation. ANION GAP 16 10 - 20 mmol/L [facility] Blood 11/17/2024 9:54 PM EDT 11/17/2024 9:57 PM EDT us Kale Cabrera MD LAB BLOOD ORDERABL ES Final Result [facility] [address] [place] [address] * (ABNORMAL) Urinalysis w/reflex Urine Culture (11/17/2024 9:50 PM EDT) Pathologist [facility] COLOR Yellow Yellow [facility] CLARITY HAZY [facility] GLUCOSE Negative Negative [facility] BILI Negative Negative [facility] KETONES 1+(A) Negative [facility] SPECIFIC GRAVITY 1.015 1.005 - 1.030 [facility] BLOOD Trace(A) Negative [facility] PH 6.5 5.0 - 8.0 [facility] Protein-UA Negative Negative [facility] NITRITE Negative Negative [facility] Leukocyte esterase, ur 1+(A) Negative [facility] Urine (Urine) 11/17/2024 9:5 0 PM EDT 11/17/2024 10:11 PM EDT Kale Cabrera MD URINE ORDERABLES F inal Result [address] [address] * (ABNORMAL) Urine Culture (11/17/2024 9:50 PM EDT) Special Requests None Reflexed from [id number] 11/17/2024 10:31 PM EDT [facility] Urine Culture >100,000 colony forming units per mL MIXED JOSELINE (3 OR MORE COLONY TYPES) Culture indicates contamination . Please resubmit if necessary.(A) 11/19/2024 7:47 AM EDT [facility] Urine 11/17/2024 9:50 PM EDT 11/17/2024 10:11 PM EDT Kale Cabrera MD MICROBIOLOGY - GEN ERAL ORDERABLES Final Result Performing Organization Address [facility]/ZIP Co de Phone Number [address] [address] * (ABNORMAL) Urine sediment (11/17/2024 9:50 PM EDT) WBC 11-20(A) NONE SEEN /hpf [facility] RBC 3-5(A) NONE SEEN /hpf [facility] URINE EPITHELIAL 21-49(A) NONE SEEN [facility] MUCUS 3+(A) NONE SEEN /hpf [facility] BACTERIA 2+(A) NONE SEEN /hpf [facility] 11/17/2024 9:50 PM EDT 11/17/2024 10:11 PM EDT Kale Cabrera MD URINE ORDERABLES F inal Result Performing Organization Address City/[facility]/ZIP Co de Phone Number [address] [address] * ECG 12-LEAD (11/17/2024 6:50 PM EDT) Only the most recent of3 resultswithin the time period is included. Ventricular Rate EKG/MIN 113 BPM [facility] Atrial Rate 113 BPM [facility] CO Interval 116 ms [facility] QRS Duration 76 ms [facility] QT Interval 328 ms [facility] QTC Interval 449 ms [facility] P Troy 37 degrees [facility] R Wave [place] 53 degrees [facility] T Wave [place] 41 degrees [facility] 11/17/2024 6:50 PM EDT 11/19/2024 9:18 AM EDT Narrative [facility] - 11/19/2024 9:18 AM EDT Sinus tachycardia Otherwise normal ECG When compared with ECG of 08-Oct-2024 16:39, No significant change was found Confirmed by Phong Mendez ([id number]) on 11/19/2024 9:18:11 AM us Ezequiel Mathew MD ECG ORDERABLES Final Result Performing Organization Address City/[facility]/ZIP Co de Phone Number [facility] * (ABNORMAL) POCT Glucose (11/17/2024 6:37 PM EDT) Glucose, POCT 160(H) 70 - 100 mg/dL [facility] 11/17/2024 6:37 PM EDT 11/18/2024 2:22 AM EDT us Kale Cabrera MD POINT OF CARE TEST ORDERABLES Final Result Performing Organization Address City/[facility] Co de Phone Number [address] [address] * ANES ETT DOUBLE LUMEN - AIRWAY LDA (11/12/2024 2:40 PM EDT) Narrative Dennise Rodriguez CRNA - 11/12/2024 2:40 PM EDT Dennise Rodriguez CRNA 11/12/2024 2:41 PM Airway Placement Procedure Note: Procedure performed by: fellow/resident/PLASMA CUTTING MACHINE OPERATOR Anesthesiologist: May Camarillo MD Fellow/Resident/PLASMA CUTTING MACHINE OPERATOR: Dennise Rodriguez CRNA Airway procedure initiated [...] Complications observed? no us May Camarillo MD CO ANESTHESIA Final Resu lt * CO ANESTHESIA PERIPHERAL BLOCK PLACEHOLDER, ANES BLOOD PATCH PERFORMABLE (11/12/2024 12:25 PM EDT) Narrative Dennise Rodriguez CRNA - 11/12/2024 12:25 PM EDT Dennise Rodriguez CRNA 11/12/2024 12:47 PM Peripheral Block Placement Procedure Note: Start Time: 11/12/2024 12:25 PM Stop Time:11/12/2024 12:35 PM Reason for block: surgeon request and post op pain managment Block performed by: fellow/resident/PLASMA CUTTING MACHINE OPERATOR Anesthesiologist: May Camarillo MD Fellow/Resident/PLASMA CUTTING MACHINE OPERATOR: Dennise Rodriguez CRNA Imbler Protocol Performed: consent obtained, patient identified with [...] ml intercostobrachial nerve us Dennise Rodriguez CRNA CO ANESTHESIA F inal Result * HCG, urine (11/12/2024 10:19 AM EDT) URINE TEST Negative Negative [facility] Urine (Urine) 11/12/2024 10: 19 AM EDT 11/12/2024 10:22 AM EDT us Jalen Sweeney DO URINE ORDERABLES Final Resu lt [address] [address] * CT ABDOMEN/PELVIS (KIDNEY STONE) WITHOUT CONTRAST [...] provided indication for this examination in Epic: *Flank pain, kidney stone suspected TECHNIQUE: Multidetector-row [...] PM EDT) HCG, QUALITATIVE Negative Negative IU/L [facility] Blood 10/08/2024 1:04 PM EDT 10/08/2024 1:16 PM EDT us Kyle Pickens MD LAB BLOOD ORDERABLES Final Result [facility] [address] [place] [address] * LFTs (hepatic panel) (10/08/2024 1:04 PM EDT) ALKALINE PHOSPHATASE 58 39 - 117 U/L [facility] TOTAL BILIRUBIN 0.6 0.0 - 1.2 mg/dL [facility] DIRECT BILIRUBIN 0.2 0.0 - 0.2 mg/dL [facility] Bilirubin (Indirect) 0.4 0 - 1.5 mg/dL [facility] AST 16 0 - 37 U/L [facility] ALT 13 0 - 40 U/L [facility] TOTAL PROTEIN 7.5 6.5 - 8.0 g/dL [facility] ALBUMIN 4.3 3.9 - 4.8 g/dL [facility] GLOBULIN 3.2 1 - 4.8 g/dL [facility] A/G Ratio 1.34 1.00 - 4.80 RATIO [facility] Blood 10/08/2024 1:04 PM EDT 10/08/2024 1:16 PM EDT Kyle Pickens MD LAB BLOOD ORDERABLES Final Result [address] [address] * Lipase (10/08/2024 1:04 PM EDT) LIPASE 16 16 - 63 U/L [facility] Blood 10/08/2024 1:04 PM EDT 10/08/2024 1:16 PM EDT Kyle Pickens MD LAB BLOOD ORDERABLES Final Result [address] [address] from Last 3 Months Insurance [facility] [address] [place] [address] [place] [address] [facility] [place] [address] [place] [address] [address] [place] [address] INSURANCE Care Teams Bag Making Machine Operator Relationship Specialty Start Date End Date Pcp, Not Required [address] [place] [address] PCP - General 11/09/15 Additional Source Comments The information contained in this document represents components of the legal health record. It is not the complete legal health record.[facility]
--- OUTSIDE RECORDS SUMMARY | 2024-12-25 15:41 | XMS_ITS | Encounter Summary ---
Author Organization [facility] Address [address] [employer] [address] [address] Phone Care Team Providers Care Stoker Erector And Servicer Name Role Phone Pcp, Not Required Primary Care Provider Unavaila ble Encounter Details Date Type Department Care Team (Late st Contact Info) Description 09/17/2023 Procedure Pass [facility], [address] [place] [address] Social History Tobacco Use Types Packs/Day Years [...] Description 12/28/2024 10:00 AM EDT Office Visit [facility] Rehabilitation Services [address] [place] [address] Nikita Mireles PA-C [address] [place] [address] [place] [address] Karyna Aguirre, PT [address] [place] [address] 12/30/2024 10:00 AM EDT Office Visit [facility] [address] [place] [address] Nkiita Mireles PA-C [address] [place] [address] [place] [address] Karyna Aguirre, PT [address] [place] [address] 12/30/2024 11:15 AM EDT Office Visit [facility] Orthopedics & Sports Medicine [address] [place] [address] Jalen Sweeney DO [address] [place] [address] Orthopedics & Sports Medicine, [place] [address] 01/04/2025 10:00 AM EDT Office Visit [facility] [address] [place] [address] Nikita Mireles PA-C [address] [place] [address] [place] [address] Karyna Aguirre, PT [address] [place] [address] 01/06/2025 10:00 AM EDT Office Visit [facility] [address] [place] [address] Nikita Mireles PA-C [address] [place] [address] [place] [address] Karyna Aguirre, PT 8 [place] [address] 01/11/2025 10:00 AM EST Office Visit [facility] [address] [place] [address] Nikita Mireles PA-C [address] [place] [address] [place] [address] Karyna Aguirre, PT 8 [place] [address] 01/18/2025 11:30 AM EST Office Visit [facility] [address] [place] [address] Nikita Mireles PA-C [address] [place] [address] [place] [address] Karyna Aguirre, PT 8 [place] [address] 02/10/2025 10:00 AM EST Office Visit [facility] [address] [place] [address] Nikita Mireles PA-C [address] [place] [address] [place] [address] Karyna Aguirre, PT 8 [place] [address] 02/12/2025 11:30 AM EST Office Visit [address] [place] [address] Nikita Mireles PA-C [address] [place] [address] [place] [address] Karyna Aguirre, PT 8 [place] [address] 02/17/2025 10:00 AM EST Office Visit [address] [place] [address] Nikita Mireles PA-C [address] [place] [address] [place] [address] Karyna Aguirre, PT 8 [place] [address] 02/19/2025 1:00 PM EST Office Visit [address] [place] [address] Nikita Mireles PA-C [address] [place] [address] [place] [address] Karyna Aguirre, PT 8 [place] [address] 02/22/2025 10:00 AM EST Office Visit [address] [place] [address] Nikita Mireles PA-C [address] [place] [address] [place] [address] Karyna Aguirre, PT 8 [place] [address] 02/24/2025 10:45 AM EST Office Visit [address] [place] [address] Nikita Mireles PA-C [address] [place] [address] [place] [address] [email or web address] Karyna Aguirre, PT [address] [place] [address] [email or web address] documented as of this encounter Visit Diagnoses Not on filedocumented in this encounter Additional Health Concerns Infection Onset Date Last Indicated Resolved Time CoV-Risk 06/18/2024 06/18/2024 06/29/2024 1:23 AM EDT documented as of this encounter Care Teams Stoker Erector And Servicer Relationship Specialty Start Date End Date Pcp, Not Required [address] [place] [address] PCP - General 11/09/15 documented as of this encounter Additional Source Comments The information contained in this document represents components of the legal health record. It is not the complete legal health record.[facility]
--- OUTSIDE RECORDS SUMMARY | 2024-12-25 15:41 | XMS_ITS | Encounter Summary ---
Author Organization [facility] Address [address] [facility] [place] [place] [address] [place] [address] Phone Care Team Providers Care Magnetic Tester Name Role Phone Pcp, Not Required Primary Care Provider Unavaila ble Encounter Details Date Type Department Care Team (Late st Contact Info) Description 02/22/2024 Procedure Pass [facility], Ct Scan - [address] [address] Social History Tobacco Use Types Packs/Day Years [...] 02/22/2024 1:48 AM Teresa Hernandez RN * [place] Suicide Severity Rating Scale (Screener/Recent Self-Report) Question [...] Description 12/28/2024 10:00 AM EDT Office Visit [facility] [address] [place] [address] Nikita Mireles PA-C [address] [place] [address] [place] [address] [email or web address] Karyna Aguirre, PT 8 [place] [address] 12/30/2024 10:00 AM EDT Office Visit [facility] [address] [place] [address] Nikita Mireles PA-C [address] [place] [address] [place] [address] [email or web address] Karyna Aguirre, PT 8 [place] [address] 12/30/2024 11:15 AM EDT Office Visit [facility] [address] [place] [address] Jalen Sweeney DO [address] [place] [address] [facility] [place] [address] 01/04/2025 10:00 AM EDT Office Visit [address] [place] [address] Nikita Mireles PA-C [address] [place] [address] [place] [address] Karyna Aguirre, PT 8 [place] [address] 01/06/2025 10:00 AM EDT Office Visit [address] [place] [address] Nikita Mireles PA-C [address] [place] [address] [place] [address] Karyna Aguirre, PT 8 [place] [address] 01/11/2025 10:00 AM EST Office Visit [facility] [address] [place] [address] Nikita Mireles PA-C [address] [place] [address] [place] [address] Karyna Aguirre, PT 8 [place] [address] 01/18/2025 11:30 AM EST Office Visit [address] [place] [address] Nikita Mireles PA-C [address] [place] [address] [place] [address] Karyna Aguirre, PT 8 [place] [address] 02/10/2025 10:00 AM EST Office Visit [address] [place] [address] Nikita Mireles PA-C [address] [place] [address] [place] [address] Karyna Aguirre, PT 8 [place] [address] 02/12/2025 11:30 AM EST Office Visit [address] [place] [address] Nikita Mireles PA-C [address] [place] [address] [place] [address] Karyna Aguirre, PT 8 [place] [address] 02/17/2025 10:00 AM EST Office Visit [address] [place] [address] Nikita Mireles PA-C [address] [place] [address] [place] [address] Karyna Aguirre, PT 8 [place] [address] 02/19/2025 1:00 PM EST Office Visit [facility] [address] [place] [address] Nikita Mireles PA-C [address] [place] [address] [place] [address] [email or web address] Karyna Aguirre, PT 8 [place] [address] [email or web address] 02/22/2025 10:00 AM EST Office Visit [facility] [address] [place] [address] Nikita Mireles PA-C [address] [place] [address] [place] [address] [email or web address] Karyna Aguirre, PT 8 [place] [address] [email or web address] 02/24/2025 10:45 AM EST Office Visit [facility] [address] [place] [address] Nikita Mireles PA-C [address] [place] [address] [place] [address] Karyna Aguirre, PT 8 [place] [address] [email or web address] documented as of this encounter Visit Diagnoses Not on filedocumented in this encounter Additional Health Concerns Infection Onset Date Last Indicated Resolved Time CoV-Risk 06/18/2024 06/18/2024 06/29/2024 1:23 AM EDT documented as of this encounter Care Teams Magnetic Tester Relationship Specialty Start Date End Date Pcp, Not Required [address] [place] [address] PCP - General 11/09/15 documented as of this encounter Additional Source Comments The information contained in this document represents components of the legal health record. It is not the complete legal health record.[facility]
--- OUTSIDE RECORDS SUMMARY | 2024-12-25 15:41 | XMS_ITS | Encounter Summary ---
Author Organization [facility] Address [address] [employer] [facility] [address] [place] [address] Phone Care Team Providers Care Safety Lamp Keeper Name Role Phone Pcp, Not Required Primary Care Provider Unavaila ble Encounter Details Date Type Department Care Team (Late st Contact Info) Description 11/22/2023 Procedure Pass [facility], Ct Scan - [address] [address] Social History Tobacco Use Types Packs/Day Years [...] 10:32 PM EDT Franchesca Parikh RN * [place] Suicide Severity Rating Scale (Screener/Recent Self-Report) Question [...] Description 12/28/2024 10:00 AM EDT Office Visit [address] [place] [address] Nikita Mireles PA-C [address] [place] [address] [place] [address] Karyna Aguirre, PT 8 [place] [address] 12/30/2024 10:00 AM EDT Office Visit [address] [place] [address] Nikita Mireles PA-C [address] [place] [address] [place] [address] Karyna Aguirre, PT 8 [place] [address] 12/30/2024 11:15 AM EDT Office Visit [facility] Orth[facility]ics & Sports Medicine [address] [place] [address] Jalen Sweeney DO [address] [place] [address] Orthopedics & Sports Medicine, [facility] [place] [address] 01/04/2025 10:00 AM EDT Office Visit [address] [place] [address] Nikita Mireles PA-C [address] [place] [address] [place] [address] Karyna Aguirre, PT 8 [place] [address] 01/06/2025 10:00 AM EDT Office Visit [address] [place] [address] Nikita Mireles PA-C [address] [place] [address] [place] [address] Karyna Aguirre, PT 8 [place] [address] 01/11/2025 10:00 AM EST Office Visit [address] [place] [address] Nikita Mireles PA-C [address] [place] [address] [place] [address] Karyna Aguirre, PT 8 [place] [address] 01/18/2025 11:30 AM EST Office Visit [address] [place] [address] Nikita Mireles PA-C [address] [place] [address] [place] [address] Karyna Aguirre, PT 8 [place] [address] 02/10/2025 10:00 AM EST Office Visit [address] [place] [address] Nikita Mireles PA-C [address] [place] [address] [place] [address] Karyna Aguirre, PT 8 [place] [address] 02/12/2025 11:30 AM EST Office Visit [address] [place] [address] Nikita Mireles PA-C [address] [place] [address] [place] [address] Karyna Aguirre, PT 8 [place] [address] 02/17/2025 10:00 AM EST Office Visit [address] [place] [address] Nikita Mireles PA-C [address] [place] [address] [place] [address] Karyna Aguirre, PT 8 [place] [address] [email or web address] 02/19/2025 1:00 PM EST Office Visit [address] [place] [address] Nikita Mireles PA-C [address] [place] [address] [place] [address] [email or web address] Karyna Aguirre, PT 8 [place] [address] 02/22/2025 10:00 AM EST Office Visit [address] [place] [address] Nikita Mireles PA-C [address] [place] [address] [place] [address] [email or web address] Karyna Aguirre, PT 8 [place] [address] [email or web address] 02/24/2025 10:45 AM EST Office Visit [address] [place] [address] Nikita Mireles PA-C [address] [place] [address] [place] [address] [email or web address] Karyna Aguirre, PT 8 [place] [address] documented as of this encounter Visit Diagnoses Not on filedocumented in this encounter Additional Health Concerns Infection Onset Date Last Indicated Resolved Time CoV-Risk 06/18/2024 06/18/2024 06/29/2024 1:23 AM EDT documented as of this encounter Care Teams Safety Lamp Keeper Relationship Specialty Start Date End Date Pcp, Not Required [address] [place] [address] PCP - General 11/09/15 documented as of this encounter Additional Source Comments The information contained in this document represents components of the legal health record. It is not the complete legal health record.[facility]
--- OUTSIDE RECORDS SUMMARY | 2024-12-25 15:41 | XMS_ITS | Encounter Summary ---
Author Organization [facility] Address [address] [place] [address] Phone Care Team Providers Care Administrative Asst Name Role Phone Pcp, Not Required Primary Care Provider Unavaila ble Encounter Details Date Type Department Care Team (Late st Contact Info) Description 10/08/2024 Procedure Pass [facility], Ct Scan - [address] [address] Social History Tobacco Use Types Packs/Day Years [...] 12:28 PM EDT Ana Gonzalez, YOLANDA * [place] Suicide Severity Rating Scale (Screener/Recent Self-Report) Question [...] Description 12/28/2024 10:00 AM EDT Office Visit [facility] Services [address] [place] [address] [place] [address] Nikita Mireles PA-C [address] [place] [address] [place] [address] Karyna Aguirre, PT 8 [place] [address] 12/30/2024 10:00 AM EDT Office Visit [facility] [address] [place] [address] Nikita Mireles PA-C [address] [place] [address] [place] [address] Karyna Aguirre, PT 8 [place] [address] 12/30/2024 11:15 AM EDT Office Visit [facility] Orthopedics & Sports Medicine [address] [place] [address] Jalen Sweeney DO [address] [place] [address] Orthopedics & Sports Medicine, [place] [address] 01/04/2025 10:00 AM EDT Office Visit [facility] [address] [place] [address] Nikita Mireles PA-C [address] [place] [address] [place] [address] Karyna Aguirre, PT 8 [place] [address] 01/06/2025 10:00 AM EDT Office Visit [facility] [address] [place] [address] Nikita Mireles PA-C [address] [place] [address] [place] [address] Karyna Aguirre, PT 8 [place] [address] 01/11/2025 10:00 AM EST Office Visit [address] [place] [address] Nikita Mireles PA-C [address] [place] [address] [place] [address] Karyna Aguirre, PT 8 [place] [address] 01/18/2025 11:30 AM EST Office Visit [address] [place] [address] Nikita Mireles PA-C [address] [place] [address] [place] [address] Karyna Aguirre, PT 8 [place] [address] 02/10/2025 10:00 AM EST Office Visit [address] [place] [address] Nikita Mireles PA-C [address] [place] [address] [place] [address] Karyna Aguirre, PT 8 [place] [address] 02/12/2025 11:30 AM EST Office Visit [address] [place] [address] Nikita Mireles PA-C [address] [place] [address] [place] [address] Karyna Aguirre, PT 8 [place] [address] 02/17/2025 10:00 AM EST Office Visit [address] [place] [address] Nikita Mireles PA-C [address] [place] [address] [place] [address] Karyna Aguirre, PT 8 [place] [address] 02/19/2025 1:00 PM EST Office Visit [address] [place] [address] Nikita Mireles PA-C [address] [place] [address] [place] [address] Karyna Aguirre, PT 8 [place] [address] 02/22/2025 10:00 AM EST Office Visit [address] [place] [address] Nikita Mireles PA-C [address] [place] [address] [place] [address] Karyna Aguirre, PT 8 [place] [address] 02/24/2025 10:45 AM EST Office Visit [address] [place] [address] Nikita Mireles PA-C [address] [place] [address] [place] [address] [email or web address] Karyna Aguirre, PT 8 [place] [address] [email or web address] documented as of this encounter Visit Diagnoses Not on filedocumented in this encounter Care Teams Administrative Asst Relationship Specialty Start Date End Date Pcp, Not Required [address] [place] [address] PCP - General 11/09/15 documented as of this encounter Additional Source Comments The information contained in this document represents components of the legal health record. It is not the complete legal health record.[facility]
--- OUTSIDE RECORDS SUMMARY | 2024-12-25 15:41 | XMS_ITS | Encounter Summary ---
Author Organization [facility] Address [address] [employer] [facility] [address] [place] [address] Phone Care Team Providers Care Metal Products Fabricator Assembler Name Role Phone Pcp, Not Required Primary Care Provider Unavaila ble Encounter Details Date Type Department Care Team ([facility] st Contact Info) Description 11/12/2024 Procedure Pass [place] Admitting Dept - Virtual Department [address] [place] [address] Social History Tobacco Use Types Packs/Day Years [...] Description 12/28/2024 10:00 AM EDT Office Visit [facility] [address] [place] [address] Nikita Mireles PA-C [address] [place] [address] [place] [address] Karyna Aguirre, PT 8 [place] [address] 12/30/2024 10:00 AM EDT Office Visit [facility] [address] [place] [address] Nikita Mireles PA-C [address] [place] [address] [place] [address] Karyna Aguirre, PT 8 [place] [address] 12/30/2024 11:15 AM EDT Office Visit [facility] Orthopedics & Sports Medicine [address] [place] [address] Jalen Sweeney DO [address] [place] [address] Orthopedics & Sports Medicine, [facility] [place] [address] 01/04/2025 10:00 AM EDT Office Visit [address] [place] [address] Nikita Mireles PA-C [address] [place] [address] [place] [address] Karyna Aguirre, PT 8 [place] [address] 01/06/2025 10:00 AM EDT Office Visit [address] [place] [address] Nikita Mireles PA-C [address] [place] [address] [place] [address] Karyna Aguirre, PT 8 [place] [address] 01/11/2025 10:00 AM EST Office Visit [address] [place] [address] Nikita Mireles PA-C [address] [place] [address] [place] [address] Karyna gAuirre, PT 8 [place] [address] 01/18/2025 11:30 AM EST Office Visit [facility] [address] [place] [address] Nikita Mireels PA-C [address] [place] [address] [place] [address] Karyna Aguirre, PT 8 [place] [address] 02/10/2025 10:00 AM EST Office Visit [address] [address] Nikita Mireles PA-C [address] [place] [address] [place] [address] Karyna Aguirre, PT 8 [place] [address] 02/12/2025 11:30 AM EST Office Visit [facility] [address] [place] [address] Nikita Mireles PA-C [address] [place] [address] [place] [address] Karyna Aguirre, PT 8 [place] [address] 02/17/2025 10:00 AM EST Office Visit [address] [place] [address] Nikita Mireles PA-C [address] [place] [address] [place] [address] Karyna Aguirre, PT 8 [place] [address] 02/19/2025 1:00 PM EST Office Visit [address] [place] [address] Nikita Mireles PA-C [address] [place] [address] [place] [address] Karyna Aguirre, PT 8 [place] [address] 02/22/2025 10:00 AM EST Office Visit [address] [address] Nikita Mireles PA-C [address] [place] [address] [place] [address] Karyna Aguirre, PT 8 [place] [address] 02/24/2025 10:45 AM EST Office Visit [address] [place] [address] Nikita Mireles PA-C [address] [place] [address] [place] [address] Karyna Aguirre, PT 8 [place] [address] documented as of this encounter Visit Diagnoses Not on filedocumented in this encounter Care Teams Metal Products Fabricator Assembler Relationship Specialty Start Date End Date Pcp, Not Required [address] [place] [address] PCP - General 11/09/15 documented as of this encounter Additional Source Comments The information contained in this document represents components of the legal health record. It is not the complete legal health record.[facility]
--- OUTSIDE RECORDS SUMMARY | 2024-12-25 15:41 | XMS_ITS | Encounter Summary ---
Author Organization [facility] Address [email or web address] [facility] [address] [place] [address] Phone Care Team Providers Care Knotting Machine Operator Name Role Phone Pcp, Not Required Primary Care Provider Unavaila ble Reason for Visit * Reason Onset Date Comments Appointment 12/23/2024 Encounter Details Date Type Department Care Team (Late st Contact Info) Description 12/23/2024 Telephone [facility] 8 [place] [address] Karyna Aguirre, PT 8 [place] [address] [email or web address] Appointment Social History Tobacco Use Types Packs/Day Years [...] as of this encounter Progress Notes * Karyna Aguirre, PT - 12/23/2024 10:22 AM EDT Called pt regarding appointment today. Pt LVM at 9:30am wished to reschedule this morning's 10am. Icalled to offer her an opening I have tomorrow afternoon, however voicemail inbox was full and was unable to leave a message. Will attempt to call pt in afternoon to offer that time if time is still available. Karyna Aguirre, [place] 235690 documented in this encounter Plan of Treatment Upcoming Encounters Date Type Department Care Team (Late st Contact Info) Description 12/28/2024 10:00 AM EDT Office Visit [address] [place] [address] Nikita Mireles PA-C [address] [place] [address] [place] [address] [email or web address] Karyna Aguirre, PT 8 [place] [address] 12/30/2024 10:00 AM EDT Office Visit [address] [place] [address] Nikita Mireles PA-C [address] [place] [address] [place] [address] [email or web address] Karyna Aguirre, PT 8 [place] [address] 12/30/2024 11:15 AM EDT Office Visit [facility] Orthopedics & Sports Medicine [address] [place] [address] Jalen Sweeney DO [address] [place] [address] Orth[facility] [place] [address] 01/04/2025 10:00 AM EDT Office Visit [address] [place] [address] Nikita Mireles PA-C [address] [place] [address] [place] [address] [email or web address] Karyna Aguirre, PT 8 [place] [address] 01/06/2025 10:00 AM EDT Office Visit [address] [place] [address] Nikita Mireles PA-C [address] [place] [address] [place] [address] Karyna Aguirre, PT 8 [place] [address] 01/11/2025 10:00 AM EST Office Visit [address] [place] [address] Nikita Mireles PA-C [address] [place] [address] [place] [address] Karyna Aguirre, PT 8 [place] [address] 01/18/2025 11:30 AM EST Office Visit [address] [place] [address] Nikita Mireles PA-C [address] [place] [address] [place] [address] Karyna Aguirre, PT 8 [place] [address] 02/10/2025 10:00 AM EST Office Visit [address] [place] [address] Nikita Mireles PA-C [address] [place] [address] [place] [address] Karyna Aguirre, PT 8 [place] [address] 02/12/2025 11:30 AM EST Office Visit [address] [place] [address] Nikita Mireles PA-C [address] [place] [address] [place] [address] [email or web address] Karyna Aguirre, PT 8 [place] [address] 02/17/2025 10:00 AM EST Office Visit [address] [place] [address] Nikita Mireles PA-C [address] [place] [address] [place] [address] Karyna Aguirre, PT 8 [place] [address] 02/19/2025 1:00 PM EST Office Visit [address] [place] [address] Nikita Mireles PA-C [address] [place] [address] [place] [address] Karyna Aguirre, PT 8 [place] [address] 02/22/2025 10:00 AM EST Office Visit [address] [place] [address] Nikita Mireles PA-C [address] [place] [address] [place] [address] Karyna Aguirre, PT 8 [place] [address] 02/24/2025 10:45 AM EST Office Visit [facility] [address] [place] [address] Nikita Mireles PA-C [address] [place] [address] [place] [address] [email or web address] Karyna Aguirre, PT 8 [place] [address] [email or web address] documented as of this encounter Visit Diagnoses Not on filedocumented in this encounter Care Teams Knotting Machine Operator Relationship Specialty Start Date End Date Pcp, Not Required [address] [place] [address] PCP - General 11/09/15 documented as of this encounter Additional Source Comments The information contained in this document represents components of the legal health record. It is not the complete legal health record.[facility]
--- OUTSIDE RECORDS SUMMARY | 2024-12-25 15:41 | XMS_ITS | Encounter Summary ---
Author Organization [facility] Address [address] [facility] [address] [place] [phone] Phone Care Team Providers Care Deli Bakery Clerk Name Role Phone Pcp, Not Required Primary Care Provider Unavaila ble Encounter Details Date Type Department Care Team (Late st Contact Info) Description 07/12/2024 Procedure Pass [facility], Ct Scan - [address] [address] Social History Tobacco Use Types Packs/Day Years [...] 7:11 AM EDT Amor Gross RN * [place] Suicide Severity Rating Scale (Screener/Recent Self-Report) Question [...] Description 12/28/2024 10:00 AM EDT [facility] [address] [place] [address] Nikita Mireles PA-C [address] [place] [address] [place] [address] Karyna Aguirre, PT [address] [place] [address] 12/30/2024 10:00 AM EDT [facility] [address] [place] [address] Nikita Mireles PA-C [address] [place] [address] [place] [address] Karyna Aguirre, PT [address] [place] [address] 12/30/2024 11:15 AM EDT Office Visit [facility] [address] [place] [address] Jalen Sweeney DO [address] [place] [address] Orthopedics & Sports Medicine, [facility] [place] [address] 01/04/2025 10:00 AM EDT Office Visit [address] [place] [address] Nikita Mireles PA-C [address] [place] [address] [place] [address] Karyna Aguirre, PT [address] [place] [address] 01/06/2025 10:00 AM EDT Office Visit [address] [place] [address] Nikita Mireles PA-C [address] [place] [address] [place] [address] Karyna Aguirre, PT [address] [place] [address] 01/11/2025 10:00 AM EST Office Visit [address] [place] [address] Nikita Mireles PA-C [address] [place] [address] [place] [address] Karyna Aguirre, PT [address] [place] [address] 01/18/2025 11:30 AM EST Office Visit [address] [place] [address] Nikita Mireles PA-C [address] [place] [address] [place] [address] Karyna Aguirre, PT [address] [place] [address] 02/10/2025 10:00 AM EST Office Visit [address] [place] [address] Nikita Mireles PA-C [address] [place] [address] [place] [address] Karyna Aguirre, PT [address] [place] [address] 02/12/2025 11:30 AM EST Office Visit [address] [place] [address] Nikita Mireles PA-C [address] [place] [address] [place] [address] Karyna Aguirre, PT [address] [place] [address] 02/17/2025 10:00 AM EST Office Visit [address] [place] [address] Nikita Mireles PA-C [address] [place] [address] [place] [address] Karyna Aguirre, PT [address] [place] [address] 02/19/2025 1:00 PM EST Office Visit [address] [place] [address] Nikita Mireles PA-C [address] [place] [address] [place] [address] Karyna Aguirre, PT [address] [place] [address] 02/22/2025 10:00 AM EST Office Visit [address] [place] [address] Nikita Mireles PA-C [address] [place] [address] [place] [address] Karyna Aguirre, PT [address] [place] [address] 02/24/2025 10:45 AM EST Office Visit [address] [place] [address] Nikita Mireles PA-C [address] [place] [address] [place] [address] Karyna Aguirre, PT [address] [place] [address] documented as of this encounter Visit Diagnoses Not on filedocumented in this encounter Care Teams Deli Bakery Clerk Relationship Specialty Start Date End Date Pcp, Not Required [address] [place] [address] PCP - General 11/09/15 documented as of this encounter Additional Source Comments The information contained in this document represents components of the legal health record. It is not the complete legal health record.[facility]
== END 2024-12-25 14:16 | disposition home or self-care (01) ==
LOC: HO.HMCH 13:05
PROVIDERS: Visit Provider Internal Medicine
DX: Z00.00 Encounter for general adult medical examination without abnormal findings (principal); R00.0 Tachycardia, unspecified; E05.90 Thyrotoxicosis, unspecified without thyrotoxic crisis or storm

== ENCOUNTER 2025-01-20 12:49 | Emergency (ER) | payer OTHER, SELFPAY ==
--- OUTSIDE RECORDS SUMMARY | 2014-04-13 10:28 | XMS_ITS | Continuity of Care Document ---
Author Organization [facility] Care Team Address [address] [place] [address] Phone Care Team Providers Care Cargo Broker Name Role Phone Provider1, First Unavailable Unavailable Advance Directives Directive Yes / No Effective Date File Name No Information Encounters Encounter Description Practice Location Reason(s) For Visit Diagnoses Date Provider Providers Copied on Encounter [facility] Team, [address] [place], [address], [place] tel:[phone] [facility] No Information Provider1 First. . Family History Family Member Type Diagnosis Age At Onset No Information Payers Payer name Insurance type Covered republican ID Authoriza tion(s) No Information Social History Type Description Quantity Date Captured Comments Sex Female Smoking Status No Information Chief Complaint And Reason For Visit No Information Reason For Referral Reason For Referral No Information History Of Present Illness Encounter Date Complaint History Of Prese nt Illness No Information Functional Status Date Functional Assessmen t No Information Instructions Date Instruction Additional Infor mation No Information Assessments Type Assessment Date No Information Patient Care Teams Name Effective Dates (start - stop) Status Members No Information
--- OUTSIDE RECORDS SUMMARY | 2024-09-07 11:34 | XMS_ITS | Continuity of Care Document ---
Author Organization [facility] Address [address] [place] [phone] Phone Care Team Providers Care Data Scientist Name Role Phone Tiffanie Albarran MD Unavailable Unavailable Allergies, Adverse Reactions, Alerts Substance Reaction Status Criticality No Known Allergies Active No Inform ation Medications Medication Instructions Dosage Effective Dates (start - stop) Status Comments fluoxetine 40 mg capsule take 1 capsule by oral route every day in the morning 40 MG - Active hydroxyzine HCl 25 mg tablet take 1 tablet by oral route every 2 days as needed 25 MG - Active Flomax 0.4 mg capsule take 1 capsule by oral route daily - Active ondansetron 4 mg disintegrating tablet take 1 tablet by oral route every [address] on top of the tongue where they will dissolve, then swallow 4 MG - Active IBU 800 mg tablet take 1 tablet by ora l route 3 times every day with food 800 MG - Active acetaminophen 325 mg tablet take 2 tablet by oral route every 6 hours as needed 650 MG - Active Procedures Procedure Date Indiv.Psychotherapy 30 Minutes(16-37) Juan Antonio OFFICE/OUTPATIENT VISIT EST PT 20-29 MIN S OFFICE/OUTPATIENT VISIT EST PT 20-29 MIN S OFFICE VISIT ESTAB PT 30-39 MIN OFFICE VISIT ESTAB PT 40-54 MIN OFFICE/OUTPATIENT VISIT EST PT 20-29 MIN S OFFICE/OUTPATIENT VISIT EST PT 20-29 MIN S OFFICE/OUTPATIENT VISIT EST PT 20-29 MIN S Coronavirus AG IA Rapid Antigen Test Dec OFFICE/OUTPATIENT VISIT, EST URINE DIP NON-AUTO WITHOUT MICRO 2018 TEST OFFICE/OUTPATIENT VISIT, EST OFFICE/OUTPATIENT VISIT, EST Comp, 3 Surf, Posterior $20 Lab Fee Resin Three Surfaces Anterior 9 $20 Lab Fee Comp, 4+ Surf, Posterior $20 Lab Fee Extraction Erupted Tooth or Exposed Root $0.00 Lab Fee Extraction Erupted Tooth or Exposed Root Periodic oral evaluation $0.00 Lab Fee Dental Caries Full Mouth Series Periodontal Disease Caries Risk Asses_High Risk Dental Caries OFFICE/OUTPATIENT VISIT, EST FAMILY PLANNING ENCOUNTER TEST IMMUNIZATION ADMIN 1ST VACCINE 18 Flu Vaccine >6 Months Nurse Visit Only OFFICE/OUTPATIENT VISIT, EST Ketorolac Tromethamine Inj TEST URINE DIP NON-AUTO WITHOUT MICRO 2017 OFFICE VISIT ESTAB PT 25 MIN Extraction Erupted Tooth or Exposed Root Extraction Erupted Tooth or Exposed Root Limit Oral Exam Radiograph Frst Film OFFICE VISIT ESTAB PT 25 MIN OFFICE VISIT ESTAB PT 25 MIN OFFICE VISIT ESTAB PT 25 MIN Indiv.Psychotherapy 45 Minutes OFFICE/OUTPATIENT VISIT, EST OFFICE/OUTPATIENT VISIT, EST OFFICE/OUTPATIENT VISIT, EST OFFICE/OUTPATIENT VISIT, EST URINE DIP NON-AUTO WITHOUT MICRO 2015 OFFICE/OUTPATIENT VISIT, EST OFFICE/OUTPATIENT VISIT, EST Behavioral Health CoVisit With Medical O URINE DIP NON-AUTO WITHOUT MICRO 2015 Ketorolac Tromethamine Inj IMMUNIZATION ADMIN 1ST VACCINE 16 Flu Vaccine >3 Years OFFICE/OUTPATIENT VISIT, EST Injection, Therapeutic Or Diagnositic Oc OFFICE/OUTPATIENT VISIT, EST Limit Oral Exam Alcohol Use Dental Caries OFFICE VISIT ESTAB PT 25 MIN Limit Oral Exam Radiograph Frst Film URINALYSIS, AUTO, W/O SCOPE TEST OFFICE VISIT ESTAB PT 25 MIN OFFICE VISIT ESTAB PT 25 MIN URINALYSIS, AUTO, W/O SCOPE TEST OFFICE VISIT ESTAB PT 25 MIN URINALYSIS, AUTO, W/O SCOPE OFFICE/OUTPATIENT VISIT, EST Extraction Erupted Tooth or Exposed Root Dental Caries Limit Oral Exam Alcohol Use Dental Caries Radiograph Frst Film Oral Surgery Appointment - 30 Minutes Ju OFFICE VISIT ESTAB PT 25 MIN Sedative Filling Dental Caries Dental Caries URINE DIP NON-AUTO WITHOUT MICRO 2013 TEST OFFICE VISIT ESTAB PT 25 MIN Limit Oral Exam Radiograph Frst Film Radiograph, Inna Add Film Limit Oral Exam Radiograph Frst Film Scedule Full Mouth Xrays Oral Surgery Appointment - 30 Minutes No OFFICE VISIT ESTAB PT 25 MIN URINE DIP NON-AUTO WITHOUT MICRO 2012 OFFICE VISIT ESTAB PT 15 MIN OFFICE VISIT ESTAB PT 25 MIN URINE DIP NON-AUTO WITHOUT MICRO 2012 OFFICE VISIT ESTAB PT 25 MIN Schedule Dental Hygiene Appointment Schedule Dental 40 Appointment Sedative Filling FAMILY PLANNING ENCOUNTER Depo Insured Patient Injection, Therapeutic Or Diagnositic Oc Nurse Visit Only Depo Insured Patient Injection, Therapeutic Or Diagnositic Ju TEST Nurse Visit Only OFFICE VISIT ESTAB PT 15 MIN OFFICE VISIT ESTAB PT 15 MIN OFFICE VISIT ESTAB PT 15 MIN OFFICE VISIT ESTAB PT 15 MIN PULSE OXIMETRY OFFICE VISIT ESTAB PT 10 MIN URINE DIP NON-AUTO WITHOUT MICRO 2011 OFFICE VISIT ESTAB PT 25 MIN OFFICE VISIT ESTAB PT 10 MIN OFFICE VISIT ESTAB PT 25 MIN URINE DIP NON-AUTO WITHOUT MICRO 2011 Schedule Filling Appointment Sedative Filling INDIVIDUAL THERAPY 20-30 MINUTES 2010 OFFICE VISIT ESTAB PT 15 MIN OFFICE VISIT ESTAB PT 25 MIN Limit Oral Exam Oral Surgery Appointment - 30 Minutes Se OFFICE VISIT ESTAB PT 25 MIN FAMILY PLANNING ENCOUNTER OFFICE VISIT ESTAB PT 25 MIN TEST URINE DIP NON-AUTO WITHOUT MICRO 2010 OFFICE VISIT ESTAB PT 25 MIN VAGINAL DELIVERY W/PRE-POST URINE DIP NON-AUTO WITHOUT MICRO 2009 VISIT Nurse Visit Only VISIT VISIT VISIT URINE DIP NON-AUTO WITHOUT MICRO 2009 VISIT VISIT VISIT VISIT VISIT Sedative Filling Schedule Filling Appointment Oral Surgery Appointment - 30 Minutes Ma URINE DIP NON-AUTO WITHOUT MICRO 2009 VISIT Schedule Filling Appointment [employer] One Surface URINE DIP NON-AUTO WITHOUT MICRO 2009 VISIT Radiograph Frst Film Palliative (Emergency) Schedule Filling Appointment URINE DIP NON-AUTO WITHOUT MICRO 2009 OFFICE VISIT ESTAB PT 15 MIN Sedative Filling Schedule Filling Appointment OFFICE VISIT ESTAB PT 15 MIN Family Resource Counselor Nut Sorter Screen 010 URINE DIP NON-AUTO WITHOUT MICRO 2009 Intake TEST OFFICE VISIT ESTAB PT 25 MIN Root canal therapy, bicuspid Schedule Filling Appointment TEST Nurse Visit Only Other Procedure Schedule 45 minute Filling Appointment D Therapeutic Pulpotomy Schedule - Anterior Endo Appointment Feb Schedule Filling Appointment Schedule - Cleaning Appointment 009 Periodic Oral Evaluation Bitewing, [employer] Films OFFICE VISIT ESTAB PT 10 MIN PPD INTERDERMAL Injection, Therapeutic Or Diagnositic De TEST OFFICE VISIT ESTAB PT 15 MIN OFFICE VISIT ESTAB PT 15 MIN URINE DIP NON-AUTO WITHOUT MICRO 2008 TEST OFFICE VISIT ESTAB PT 25 MIN OFFICE VISIT ESTAB PT 10 MIN TEST OFFICE VISIT ESTAB PT 15 MIN OFFICE VISIT ESTAB PT 15 MIN TEST OFFICE VISIT ESTAB PT 10 MIN OFFICE VISIT ESTAB PT 15 MIN Prophylaxis - Adult Schedule - 4 Month Cleaning Appointment Schedule Filling Appointment Consultation Removal Erupted Tooth [employer] One Surface Schedule Filling Appointment Full Mouth Series Schedule Filling Appointment Schedule - Cleaning Appointment 007 Oral Surgery Appointment - 30 Minutes Se Comprehensve Oral Exam VAGINAL DELIVERY W/PRE-POST VISIT PKG URINE DIP NON-AUTO WITHOUT MICRO 2006 ASSESSMENT URINE DIP NON-AUTO WITHOUT MICRO 2006 VISIT PKG URINE DIP NON-AUTO WITHOUT MICRO 2006 VISIT PKG URINE DIP NON-AUTO WITHOUT MICRO 2006 OFFICE VISIT ESTAB PT 15 MIN OFFICE VISIT ESTAB PT 40 MIN ASSESSMENT SOCIAL SERVICE COUNSELING OFFICE VISIT ESTAB PT 15 MIN Advance Directives Directive Yes / No Effective Date File Name No Information Encounters Encounter Description Practice Location Reason(s) For Visit Diagnoses Date Provider Providers Copied on Encounter [email or web address] [address] [place] [address], [id number] , [phone] [facility] No Information 5 Deion Moreno. [address] [place], [id number], . tel:[phone] Indiv.Psycho therapy 30 Minutes(16-3 7) [email or web address] [address], [place], [id number] , [phone] [facility] Major depressive disorder, recurrent, unspecified 4 Reena Arce. [address] [place], [address], . tel:[phone] Referring Provider: Tiffanie Albarran, [address] [place] [address], [address]. tel:[phone] OFFICE/OUTPA TIENT VISIT EST PT 20-29 MINS [email or web address] [address] [place] [address], [id number] , [place] tel: [phone] [facility] Follow Up of Anxiety (chief complaint)MD Note (chief complaint) Body mass index (BMI) 24.0-24.9, adultGAD (generalized anxiety disorder) 4 Deion Moreno. [address] [place], [place], [id number], [place]. tel:[phone] Referring Provider: Tiffanie Albarran, [address] [facility], [place], [address]. tel:[phone] OFFICE/OUTPA TIENT VISIT EST PT 20-29 MINS [email or web address] [address] [place] [address], [id number] , [place] tel: [phone] [facility] letter (chief complaint)Anx iety (chief complaint) Anxiety and depression 4 [facility]. [address], [place], [address], [place]. tel:[phone] Referring Provider: Tiffanie Albarran, [address] [place], [place] [address], [place], [address]. tel:[phone] OFFICE VISIT ESTAB PT 30-39 MIN [email or web address] [address] [place] [address], [id number] , [place] tel: [phone] [facility] Work Letter (chief complaint) Depressive disorderBila teral leg weaknessGAD (generalized anxiety disorder)Mark sea and vomiting in adultKidney stones 3 Deion Moreno. [address] [place], [place], [id number], [place]. tel:[phone] Referring Provider: Tiffanie Albarran, [facility] [place], [address]. 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 [address] [place], [address], [place]. tel:[phone] Referring Provider: Tiffanie Albarran, [address] [place], [address]. tel:[phone] OFFICE/OUTPA TIENT VISIT EST PT 20-29 MINS [email or web address] [address] [place] [address], [id number] , [place] tel: [facility] MD Note (chief complaint) Leg weakness, bilateral 3 Deion Moreno. [address] [place], [place], [id number], [place]. tel:[phone] Referring Provider: Tiffanie Albarran, [address] [place], [address]. tel:[phone] OFFICE/OUTPA TIENT VISIT EST PT 20-29 MINS [email or web address] [address] [place] [address], [id number] , [place] tel: [phone] [facility] Right leg weakness (chief complaint)Tel ehealth (chief complaint) Weakness of right lower extremityRen al calculus 3 Khalif Rodriguez. [address] [place], [address], [place]. tel:[phone] Referring Provider: Tiffanie Albarran, [address] [place], [address]. tel:[phone] OFFICE/OUTPA TIENT VISIT EST PT 20-29 MINS [email or web address] [address] [place] [address], [id number] , [place] tel: [phone] [address] [place] [address] infertility (chief complaint)add (chief complaint) Infertility management 1 Nic Maya. [address] [place], [address], [place]. tel:[phone] Referring Provider: Tiffanie Albarran, [address] [place], [address]. tel:[phone] [email or web address] [address] [place] [address], [id number] , [place] tel: [address] [place] [address] No Information 0 Ulises you RN. [address] [place], [address], [place]. OFFICE/OUTPA TIENT VISIT, [facility] [address] [place] [address], [id number] , [place] tel: [address] [place] [address] Telehealth visit (chief complaint) Abdominal pain with vomitingVomi ting, unspecified 0 Jarod Mendoza. [address] [place], [address], [place]. tel:[phone] Referring Provider: Reji Olivera, [address] [place], [address]. tel:[phone] OFFICE/OUTPA TIENT VISIT, [facility] [address] [place] [address], [id number] , [place] tel: [facility] Vomiting (chief complaint) Body mass index (BMI) 22.0-22.9, adultGastroe nteritis 9 Jenn Rm. [address] [place], [address], [place]. tel:[phone] Referring Provider: Sujey Barajas, [address] [place], [address]. tel:[phone] OFFICE/OUTPA TIENT VISIT, [facility] [address] [place] [address], [id number] , [place] tel: [facility] Follow Up of ED/Abdominal pain (chief complaint) Body mass index (BMI) 19.9 or less, adultCalculu s of kidney 9 Leisa Frias. [address] [place], [place], [id number], [place]. tel: [phone] Referring Provider: Rodriguez De La Fuente, [address] [facility], [place], [address]. tel: [phone] [employer] [facility] [employer] [address] [place] [address], [id number] , [place] tel: [phone] [facility] Dental examination 9 Anette Weldon. [address], [place], [place], [id number], [place]. tel: [phone] Referring Provider: Fatemeh Cheema, [address], [place], [address]. tel: [phone] [employer] [address] [place] [address], [id number] , [place] tel: [phone] [facility] examination 9 Anette Weldon. [address], [place], [place], [id number], [place]. tel: [phone] Referring Provider: Fatemeh Cheema, [address], [place], [address]. tel: [phone] [employer] [address] [place] [address], [id number] , [place] tel: [phone] [facility] examination 8 Anette Weldon. [address], [place], [place], [id number], [place]. tel: [phone] Referring Provider: Fatemeh Cheema, [address], [place], [address]. tel: [phone] [employer] [address], [place], [id number] , [place] tel: [phone] [facility] Dental examination Joshua Delaney. [address] [facility], [place], [address], [place]. tel:[phone] Referring Provider: Rhett Lewis, [address] [place], [address]. tel:[phone] [email or web address] [address] [place] [address], [id number] , [place] tel: [phone] [facility] examination 8 Anette Weldon. [address] [place], [place], [id number], [place]. tel:[phone] OFFICE/OUTPA TIENT VISIT, EST [email or web address] [address] [place] [address], [id number] , [place] tel:[phone] [facility] trying to conceive (chief complaint)Dys pareunia (chief complaint) Dyspareunia in female 8 Luigi Stuart. [address] [place], [address], [place]. tel:[phone] [facility], [address] [place] [address], [id number] , [place] tel: [phone] [facility] flu (chief complaint) Encounter for oth general cnsl and advice on contraceptio nEncounter for reversal of previous sterilizatio n 8 No Information OFFICE/OUTPA TIENT VISIT, EST [employer] [address] [place] [address], [id number] , [place] tel:[phone] [facility] Post-surgical Pain (chief complaint) Acute abdomen 8 Cardona Gina. [address] [place], [address], [place]. tel:[phone] Referring Provider: Kiko Hicks, [address] [place], [address]. tel:[phone] OFFICE VISIT ESTAB PT 25 MIN [employer] [address] [place] [address], [id number] , [place] tel: [phone] [facility] back pain (chief complaint) Other acute back pain 8 Konrad Katina. [address] [place] [address], [id number], [place]. tel:[phone] [email or web address] [address] [place] [address], [id number] , tel: [phone] [facility] examination 7 Odilon Castaneda. [address] [place] [address], [id number], [place]. tel:[phone] Referring Provider: Leonel Donald, [address] [place] [address], [address]. tel:[phone] [email or web address] [address] [place] [address], [id number] , tel: [phone] [facility] examination 7 Yfn Hanson. [address] [place] [address], [address], [place]. tel: [phone] Referring Provider: Margie Coulter, [address] [place] [address], [address]. tel: [phone] OFFICE VISIT ESTAB PT 25 MIN [employer] [address] [place] [address], [id number] , tel: [phone] [facility] Follow Up of Depression (chief complaint) Calculus of kidney with calculus of ureterMajor depressive disorder, single episode, unspecified Apr-0 4-201 7 Hofstetter Katherene. [address] [place] [address], [id number], [place]. tel:[phone] Referring Provider: Tayler Monte, [address] [place] [address], [address]. tel: [phone] OFFICE VISIT ESTAB PT 25 MIN [employer] [address] [place] [address], [id number] , [place] tel: [phone] [facility] Follow Up of Depression (chief complaint) Major depressive disorder, single episode, unspecified Mar-0 7-201 7 Hofstetter Katherene. [address] [place] [address], [id number], [place]. tel: [phone] Referring Provider: Tayler Monte, [address] [place] [address], [address]. tel:[phone] OFFICE VISIT ESTAB PT 25 MIN [email or web address] [address] [place] [address], [id number] , tel: [phone] [facility] Follow Up of Depression (chief complaint) Major depressive disorder, recurrent, unspecified 7 Oniel Lang. [address] [place] [address], [id number], [place]. tel: [phone] Referring Provider: Tayler Monte, [address] [place] [address], [address]. tel:[phone] Indiv.Psycho therapy 45 Minutes [email or web address] [address] [place] [address], [id number] , tel: [facility] Anxiety (chief complaint)Dep ression (chief complaint)Str essed (chief complaint)Sle ep disturbance (chief complaint) Major depressive disorder, recurrent, unspecifiedP ost-traumati c stress disorder, chronic 7 [place], [address], [place]. tel:[phone] Referring Provider: Tayler Monte, [address] [place] [address], [address]. tel:[phone] OFFICE/OUTPA TIENT VISIT, [email or web address] [address] [place] [address], [id number] , [place] tel: [phone] [facility] Follow Up of Depression (chief complaint) Depression 7 Oniel Lang. [address] [place] [address], [id number], [place]. tel: [phone] Referring Provider: Tayler Monte, [address] [place] [address], [address]. tel:[phone] OFFICE/OUTPA TIENT VISIT, [email or web address] [address] [place] [address], [id number] , tel: [facility] Follow Up of Depression (chief complaint) Major depressive disorder, recurrent, unspecified Dec-1 6- 6 Lavell Lester. [address] [place] [address], [id number], [place]. tel:[phone] Referring Provider: Tayler Monte, [address] [place] [address], [address]. tel:[phone] OFFICE/OUTPA TIENT VISIT, [email or web address] [address] [place] [address], [id number] , [place] tel: [facility] Follow Up of Depression (chief complaint) Major depressive disorder, recurrent, unspecifiedL eft flank pain Dec-0 9- 6 Lavell Lester. [address] [place] [address], [id number], [place]. tel:[phone] Referring Provider: Tayler Monte, [address] [place] [address], [address]. tel:[phone] OFFICE/OUTPA TIENT VISIT, [facility] [address] [place] [address], [id number] , tel: [facility] depression (chief complaint) Depression Dec-0 6 Khalif Rodriguez. [address] [place], [address], [place]. tel: [phone] Referring Provider: Tayler Monte, [address] [place] [address], [address]. tel:[phone] OFFICE/OUTPA TIENT VISIT, [email or web address] [address], [place], [id number] , [place] tel: [phone] [facility] Follow Up of Depression (chief complaint) Major depressive disorder, recurrent, unspecifiedE pigastric painLeft flank pain Nov-2 3- 6 Lavell Lester. [address] [place] [address], [id number], [place]. tel:[phone] Referring Provider: Tayler Monte, [address] [place] [address], [address]. tel:[phone] OFFICE/OUTPA TIENT VISIT, [facility] [address] [place] [address], [id number] , [place] tel: [phone] [facility] Follow Up of Depression (chief complaint) Major depressive disorder, recurrent, unspecified 6 Lavell Lester. [address] [place] [address], [id number], [place]. tel:[phone] Referring Provider: Tayler Monte, [address] [place] [address], [address]. tel:[phone] [email or web address] [address] [place] [address], [id number] , tel:[phone] [facility] Depression (chief complaint)Sle ep disturbance (chief complaint)Harvinder etite loss (chief complaint) Major depressive disorder, recurrent, unspecified 6 [place], [address], [place]. tel: [phone] Referring Provider: Tayler Monte, [address] [place] [address], [address]. tel:[phone] OFFICE/OUTPA TIENT VISIT, [facility] [address] [place] [address], [id number] , [place] tel: [phone] [facility] Follow Up of Depression (chief complaint) Depression, unspecified depression typeLeft flank pain 6 Lavell Lester. [address] [place] [address], [id number], [place]. tel:[phone] Referring Provider: Tayler Monte, [address] [place] [address], [address]. tel:[phone] OFFICE/OUTPA TIENT VISIT, [facility] [address] [place] [address], [id number] , [place] tel: [phone] [facility] Follow Up of Depression (chief complaint)Fol low Up of gastritis (chief complaint) Depression, unspecified depression type Sep-2 3-201 6 Monte Tayler. [address] [place] [address], [id number], [place]. tel:[phone] Referring Provider: Tayler Monte, [address] [place] [address], [address]. tel:[phone] [facility] [address] [place] [address], [id number] , [place] tel: [phone] [facility] examination Sep-2 0-201 6 Donald Leonel. [address] [place] [address], [id number], [place]. tel:[phone] Referring Provider: Margie Coulter, [address] [place] [address], [address]. tel: [phone] OFFICE VISIT ESTAB PT 25 MIN [facility], [address] [place] [address], [id number] , [place] tel: [phone] [facility] Follow Up of ER (chief complaint)Dep ression (chief complaint)abd ominal pain (chief complaint) Depression, unspecified depression typeEpigastr ic pain Sep-0 9-201 6 Lavell Tayler. [address] [place] [address], [id number], [place]. tel:[phone] Referring Provider: Tayler Monte, [address] [place] [address], [address]. tel:[phone] [facility] [address] [place] [address], [id number] , [place] tel: [phone] [facility] examination Noel- 5-201 5 Donald Leonel. [address] [place] [address], [id number], [place]. tel:[phone] Referring Provider: Tayler Monte, [address] [place] [address], [address]. tel:[phone] OFFICE VISIT ESTAB PT 25 MIN [email or web address] [address] [place] [address], [id number] , [place] tel: [phone] [facility] abdominal pain (chief complaint) UTI (lower urinary tract infection) 5 Jacquelin Alarcon. [address] [place], [place], [id number], [place]. tel: [phone] Referring Provider: Tayler Monte, [address] [place] [address], [address]. tel:[phone] OFFICE VISIT ESTAB PT 25 MIN [email or web address] [address] [place] [address], [id number] , [place] tel: [phone] [facility] Kidney stones (chief complaint) Abdominal pain, left lower quadrantCalc ulus of kidneyVomiti ng 5 Lavell Lester. [address] [place] [address], [id number], [place]. tel:[phone] Referring Provider: Tayler Monte, [address] [place] [address], [address]. tel:[phone] OFFICE VISIT ESTAB PT 25 MIN [email or web address] [address] [place] [address], [id number] , [place] tel: [phone] [facility] Abdominal pain (chief complaint) Abdominal Pain 5 Daryl Manzo. [address] [place], [address], [place]. tel: [phone] Referring Provider: Anais Brito, [address] [place], [address]. tel: [phone] OFFICE/OUTPA TIENT VISIT, EST [employer] [address] [place] [address], [id number] , [place] tel: [phone] [facility] finger pain (chief complaint)LLQ pain (chief complaint) Finger painLeft flank pain 4 Lavell Lester. [address] [place] [address] [place], [id number], [place]. tel:[phone] Referring Provider: Tayler Monte, [address] [place], [address]. tel:[phone] [facility] [address] [place] [address], [id number] , [place] tel: [phone] [facility] examination 4 Murtaza Darling. [address] [place] [address], [id number], [place]. tel: [phone] [facility] [address] [place] [address], [id number] , [place] tel: [phone] [facility] examination 4 Luiz Barillas. [address] [place] [address], [address], [place]. tel: [phone] [facility] [address] [place] [address], [id number] , [place] tel: [phone] [facility] Screening examination for pulmonary tuberculosis 4 Lavell Lester. [address] [place] [address], [id number], [place]. tel:[phone] OFFICE VISIT ESTAB PT 25 MIN [email or web address] [address] [place] [address], [id number] , [place] tel: [phone] [facility] Decreased Appetite (chief complaint) Weight gainAbnormal weight gainAsthmaCo ntraceptionA bnormal weight gainAsthmaUn specified contraceptiv e management 4 Lavell Lester. [address] [place] [address], [id number], [place]. tel:[phone] [facility] [address] [place] [address], [id number] , [place] tel: [phone] [facility] examination 4 Yfn Hanson. [address] [place] [address], [address], [place]. tel: [phone] OFFICE VISIT ESTAB PT 25 MIN [employer] [address] [place] [address], [id number] , [place] tel:+ [phone] [facility] vomiting (chief complaint) Abdominal Pain 4 [facility] Dorian. [address] [place], [place], [id number], [place]. tel:[phone] [employer] [address], [id number] , [place] tel:+ [phone] [facility] examination 4 [facility]. [address] [place], [address], . tel:[phone] [email or web address] [address] [place] [address], [id number] , [place] tel:+ [phone] [facility] examination 3 [facility]. [address] [place], [address], [place]. tel:[phone] OFFICE VISIT ESTAB PT 25 MIN [employer] [address] [place] [address], [id number] , [place] tel:[phone] [facility] LUQ pain (chief complaint)col d symptoms (chief complaint) Upper Respiratory Infection, Acute 3 Boy Angel. [address] [place], [address], [place]. [phone] OFFICE VISIT ESTAB PT 15 MIN [employer] [address] [place] [address], [id number] , [place] tel:+ [phone] [facility] stomach pain (chief complaint) H. pylori duodenitisHe licobacter pylori (H. pylori)Duode nitis (without mention of hemorrhage)H elicobacter pylori (h. pylori) infection 3 [facility] Dorian. [address] [place], [place], [id number], [place]. [phone] [employer] [address], [place], [id number] , [place] tel: [facility] AsthmaMigrai neGastritis and duodenitisDe pressionH/O renal calculiH/O tubal ligation 3 Mayra Dionicio. [address] [place], [place], [id number], [place]. tel:[phone] OFFICE VISIT ESTAB PT 25 MIN [email or web address] [address] [place] [address], [id number] , [place] tel: [phone] [facility] abdominal discomfort (chief complaint) Nephrolithia sisCalculus of kidneyVomiti ng alone 3 [facility] as Dorian. [address] [place], [place], [id number], [place]. tel:[phone] OFFICE VISIT ESTAB PT 25 MIN [email or web address] [address] [place] [address], [id number] , [place] tel: [facility] abdominal discomfort (chief complaint) Nephrolithia sisCalculus of kidneyVomiti ng alone 3 [facility] as Dorian. [address] [place], [place], [id number], [place]. tel:[phone] [email or web address] [address] [place] [address], [id number] , [place] tel: [phone] [facility] examination 2 Yfn Hanson. [address] [place], [address], [place]. tel: [phone] [employer] [address] [place] [address], [id number] , [place] tel: [phone] [facility] contraception - desires temporary solution (chief complaint) Surveillance of other contraceptiv e method 2 Luigi Stuart. [address] [place], [address], [place]. tel:[phone] [employer] [address] [place] [address], [id number] , [place] tel: [phone] [facility] Depo Injection (chief complaint) Surveillance of other contraceptiv e methodOther general counseling and advice on contraceptiv e management 2 No Information OFFICE VISIT ESTAB PT 15 MIN [email or web address] [address] [place] [address], [id number] , [place] tel:+ [phone] [facility] ER (chief complaint) Anorexia 2 Jenn Sujey. [address] [place], [address], [place]. tel:[phone] OFFICE VISIT ESTAB PT 15 MIN [email or web address] [address] [place] [address], [id number] , [place] tel:+ [phone] [facility] anorexia (chief complaint) AnorexiaAnor exiaFamily planning servicesAnor exiaOther general counseling and advice on contraceptiv e management 2 Jenn Sujey. [address] [place] [address], [address], [place]. tel: [phone] OFFICE VISIT ESTAB PT 15 MIN [email or web address] [address] [place] [address], [id number] , [place] tel: [phone] [facility] release form (chief complaint)kid rick stones (chief complaint) Nephrolithia sisCalculus of kidney 2 Jenn Sujey. [address] [place], [address], [place]. tel:[phone] OFFICE VISIT ESTAB PT 15 MIN [email or web address] [address] [place] [address], [id number] , [place] tel:[phone] [facility] R flank pain (chief complaint) Renal colic 2 Christopher Vaibhav. [address] [place], [place], [id number], [place]. tel:[phone] OFFICE VISIT ESTAB PT 10 MIN [email or web address] [address] [place] [address], [id number] , [place] tel:[phone] [facility] Wants to establish PCP (chief complaint)col d symptoms (chief complaint) Respiratory Abnormality, OtherCoughCo ugh 2 Jenn Sujey. [address] [place] [address], [address], [place]. tel: [phone] OFFICE VISIT ESTAB PT 25 MIN [email or web address] [address] [place] [address], [id number] , [place] tel: [phone] [facility] UTI (chief complaint) Renal colicCalculu s of kidneyCalcul us of kidneyRenal colic 2 Christopher Vaibhav. [address] [place], [place], [id number], [place]. tel: [phone] OFFICE VISIT ESTAB PT 10 MIN [email or web address] [address] [place] [address], [id number] , [place] tel: [phone] [facility] back pain (chief complaint) Renal colicRenal colic 2 Jenn Sujey. [address] [place] [address], [address], [place]. tel:[phone] OFFICE VISIT ESTAB PT 25 MIN [email or web address] [address] [place] [address], [id number] , [place] tel: [phone] [facility] back pain (chief complaint) Renal calculus 2 Mayra Dionicio. [address] [place], [place], [id number], [place]. tel:[phone] [employer] [address] [place] [address], [id number] , US tel: [phone] [facility] examination 1 Yfn Hanson. [address] [place], [address], [place]. tel: [phone] [email or web address] [address] [place] [address], [id number] , US tel: [phone] [facility] Major depressive affective disorder, single episode, unspecified degreeFAMILY DISRUPTION NEC 1 Fady Gabriel. , [place], [place]. OFFICE VISIT ESTAB PT 15 MIN [email or web address] [address] [place] [address], [id number] , [place] tel:+ [phone] [facility] depression (chief complaint)tyler n (chief complaint)cesar ght loss (chief complaint) Depression Dec-0 1 Christopher Esposito. [address] [place], [place], [id number], [place]. tel:[phone] OFFICE VISIT ESTAB PT 25 MIN [email or web address] [address] [place] [address], [id number] , [place] tel: [phone] [facility] kidney stones / er (chief complaint)abd ominal discomfort (chief complaint) Kidney stonesHelico bacter pylori ab+Seasonal allergies Sep-2 1 Mayra Greenberg. [address] [place] [address], [id number], [place]. tel: [phone] [employer] [address] [place] [address], [id number] , [place] tel: [phone] [facility] examination Nov-0 1 Luiz Barillas. [address] [place] [address], [address], [place]. tel:[phone] OFFICE VISIT ESTAB PT 25 MIN [email or web address] [address] [place] [address], [id number] , [place] tel: [phone] [facility] discuss Depo (chief complaint) Loss of weightOther general counseling and advice on contraceptiv e management 3 1 Luigi Stuart. [address] [place] [address], [address], [place]. tel: [phone] OFFICE VISIT ESTAB PT 25 MIN [email or web address] [address] [place] [address], [id number] , [place] tel: [phone] [facility] vomiting (chief complaint)abd ominal discomfort (chief complaint) Abdominal pain UNSPCF SITEVomiting Nausea & vomitingLoss of weightUrinar y Tract InfectionCon stipation 0 1 Mayra Greenberg. [address] [place] [address], [id number], [place]. tel: [phone] OFFICE VISIT ESTAB PT 25 MIN [email or web address] [address] [place] [address], [id number] , [place] tel: [facility] cold symptoms (chief complaint)vom iting (chief complaint) Upper Respiratory Infection, AcuteAsthmaA norexia 1 Dalila Brown. [address] [place] [address], [id number], . tel:[phone] [email or web address] [address] [place] [address], [id number] , tel: [phone] [facility] No Information Nov-0 7- 0 No Information VISIT [email or web address] [address] [place] [address], [id number] , [place] tel: [facility] vaginal discharge (chief complaint) No Information Oct-2 0 Luigi Stuart. [address] [place] [address], [address], [place]. tel:[phone] [employer], [address] [place] [address], [id number] , tel: [facility] BP monitoring (chief complaint) Nonspecific low blood pressure reading Oct- 0 No Information VISIT [email or web address] [address] [place] [address], [id number] , tel: [phone] [facility] No Information Oct- 0 Luigi Stuart. [address] [place], [address], [place]. tel:[phone] VISIT [employer], [address] [place] [address], [id number] , [place] tel: [phone] [facility] No Information Oct-1 0-201 0 Luigi Stuart. [address] [place], [address], [place]. tel:[phone] VISIT [email or web address] [address] [place] [address], [id number] , tel: [phone] [facility] No Information Aug-0 3-201 0 Luigi Stuart. [address] [place], [address], [place]. tel:[phone] VISIT [employer] [address] [place] [address], [id number] , [place] tel: [facility] vaginal discharge (chief complaint) No Information 3 0-201 0 Meyers Narciso. [address] [place] [address], [address], [place]. tel:[phone] VISIT [employer] [address] [place] [address], [id number] , [place] tel: [phone] [facility] No Information 7-201 0 Meyersluz elena Stuart. [address] [place] [address], [address], [place]. tel:[phone] VISIT [employer] [address] [place] [address], [id number] , [place] tel: [facility] No Information 3-201 0 Meyersluz elena Stuart. [address] [place] [address], [address], [place]. tel:[phone] VISIT [email or web address] [address] [place] [address], [id number] , [place] tel: [phone] [facility] No Information 0 1-201 0 Meyers Narciso. [address] [place] [address], [address], [place]. tel:[phone] VISIT [email or web address] [address] [place] [address], [id number] , [place] tel: [phone] [facility] back pain (chief complaint) No Information 2-201 0 Belle Christine. [address] [place] [address], [address], [place]. tel:[phone] [email or web address] [address] [place] [address], [id number] , [place] tel: [phone] [facility] examination 6-201 0 No Information VISIT [email or web address] [address] [place] [address], [id number] , [place] tel: [phone] [facility] No Information 3-201 0 Belle Christine. [address] [place], [address], [place]. tel:[phone] [employer] [address] [place] [address], [id number] , US tel:+ [phone] [facility] examination May- 2-201 0 No Information VISIT [employer] [address] [place] [address], [id number] , US tel: [phone] [facility] vomiting (chief complaint)difatemeh ziness (chief complaint) No Information 1-201 0 Belle Christine. [address] [place], [address], [place]. tel:[phone] [address] [place] [address], [id number] , [place] tel: [phone] [facility] examination May-0 5-201 0 No Information OFFICE VISIT ESTAB PT 15 MIN [email or web address] [address] [place] [address], [id number] , [place] tel: [phone] [facility] vomiting (chief complaint) Mild hyperemesis gravidarum, antepartum Feb-2 3-201 0 Walser Nanci. [address] [place], [address], [place]. tel:[phone] [email or web address] [address] [place] [address], [id number] , [place] tel: [phone] [facility] examination Apr-2 2-201 0 No Information OFFICE VISIT ESTAB PT 15 MIN [email or web address] [address] [place] [address], [id number] , [place] tel: [phone] [facility] vomiting (chief complaint) Mild hyperemesis gravidarum, antepartum Feb-0 8-201 0 Walser Nanci. [address] [place], [address], [place]. tel:[phone] [address] [place] [address], [id number] , [place] tel: [phone] Administrati on - [facility] No Information 0 Services Social. , [place], [address], [place]. [email or web address] [address] [place] [address], [id number] , tel:+ [phone] [facility] OB Intake (chief complaint) Other specified counseling 0 Katrin Ramon. [address] [place] [address], [address], [place]. tel:[phone] [employer], [address] [place] [address], [id number] , [place] tel:[phone] [facility] OB INTAKE (chief complaint) No Information 0 No Information OFFICE VISIT ESTAB PT 25 MIN [email or web address] [address] [place] [address], [id number] , US tel:[phone] [facility] nausea (chief complaint) No Information 0 Luigi Cerdaele. [address] [place] [address], [address], [place]. tel:[phone] [employer], [address] [place] [address], [id number] , US tel:+ [phone] [facility] examination 0 No Information [email or web address] [address] [place] [address], [id number] , [place] tel:+ [phone] [facility] Test (chief complaint) No Information 0 No Information [employer], [address] [place] [address], [id number] , [place] tel:+ [phone] [facility] examination Dec-3 0-200 9 No Information [email or web address] [address] [place] [address], [id number] , US tel:+ [phone] [facility] examination Dec-2 3-200 9 No Information [email or web address] [address] [place] [address], [id number] , US tel:+ [phone] [facility] examination Dec-2 2200 9 No Information OFFICE VISIT ESTAB PT 10 MIN [email or web address] [address], [place], [id number] , US tel:+ [phone] [facility] Vaccine (chief complaint) Other reasons for seeking consultation Dec-0 3200 9 No Information OFFICE VISIT ESTAB PT 15 MIN [email or web address] [address] [place] [address], [id number] , [place] tel:+ [phone] [facility] seeking preg. (chief complaint) PROCR MGMT CNSL/ADV NEC Sep-2 9-200 9 Belle Christine. [address] [place], [address], [place]. tel:[phone] OFFICE VISIT ESTAB PT 15 MIN [email or web address] [address] [place] [address], [id number] , [place] tel: [phone] [facility] excessive sweats under arm (chief complaint)abd ominal discomfort (chief complaint) Abdominal pain, unspecified siteAbdomina l pain, unspecified siteASTHMA,U NSPECIFIED TYPE, UNSPECIFIEDP rimary focal hyperhidrosi sAnemia, unspecified Sep-0 4200 9 [facility]. [address] [place] [address], [id number], . tel:[phone] OFFICE VISIT ESTAB PT 25 MIN [email or web address] [address] [place] [address], [id number] , [place] tel:+ [phone] [facility] acute pelvic pain (chief complaint)vom itigx4 today (chief complaint) Abdominal pain, unspecified site Noel-0 2200 9 No Information OFFICE VISIT ESTAB PT 10 MIN [email or web address] [address] [place] [address], [id number] , [place] tel:+ [phone] [facility] LLQ pain (chief complaint) Abdominal pain, left lower quadrant German-1 6200 9 [facility]. [address] [place] [address], [id number], . tel:[phone] OFFICE VISIT ESTAB PT 15 MIN [email or web address] [address] [place] [address], [id number] , [place] tel:+ [phone] [facility] IUD insertion (chief complaint) Other specified contraceptiv e management Dec-2 0-200 8 Meyers Narciso. [address] [place] [address], [address], [place]. tel:[phone] OFFICE VISIT ESTAB PT 15 MIN [email or web address] [address] [place] [address], [id number] , [place] tel: [phone] [facility] vomiting (chief complaint)abd ominal discomfort (chief complaint) No Information Sep-0 7-200 8 No Information OFFICE VISIT ESTAB PT 10 MIN [employer] [address] [place] [address], [id number] , [place] tel: [phone] [facility] vomiting (chief complaint)diz ziness (chief complaint) No Information May-3 1200 8 No Information OFFICE VISIT ESTAB PT 15 MIN [employer] [address] [place] [address], [id number] , [place] tel: [phone] [facility] diarrhea, black stools (chief complaint)vom iting (chief complaint) No Information May-1 0-200 8 No Information [email or web address] [address] [place] [address], [id number] , [place] tel: [phone] [facility] No Information Dec- 0-200 7 Catalina Lion. , [place], [place]. Consulting Provider: Amisha Arnold PA. [email or web address] [address] [place] [address], [id number] , [place] tel: [phone] [facility] No Information Dec-0 1-200 7 Murtaza Perezen. [address] [place] [address], [id number], [place]. tel:[phone] [email or web address] [address] [place] [address], [id number] , [place] tel: [phone] [facility] No Information Sep-2 6-200 7 No Information [email or web address] [address] [place] [address], [id number] , [place] tel: [phone] [facility] No Information Sep-1 8-200 7 No Information [employer] [address], [place], [id number] , [place] tel: [phone] [facility] No Information 5-200 7 No Information [facility]IT [facility] [address] [place] [address], [id number] , [place] tel: [phone] [facility] No Information Aug-0 7-200 7 No Information ASSESSMENT [facility] [employer] [address] [place] [address], [id number] , [place] tel: [phone] [facility] No Information 9200 7 Kellyser Nanci. [address] [place], [address], [place]. tel: [phone] VISIT PK [employer] [address] [place] [address], [id number] , [place] tel: [phone] [facility] No Information 7200 7 No Information VISIT [facility] [employer] [address] [place] [address], [id number] , [place] tel: [phone] [facility] No Information 7 Kellyser Nanci. [address] [place], [address], [place]. tel:[phone] OFFICE VISIT ESTAB PT 15 MIN [employer] [address] [place] [address], [id number] , [place] tel: [facility] No Information 8200 7 [facility]. [address] [place] [address], [id number], [place]. tel:[phone] OFFICE VISIT ESTAB PT 40 MIN [employer] [address] [place] [address], [id number] , [place] tel: [phone] [facility] No Information 4200 7 Kellyser Nanci. [address] [place], [address], [place]. tel: [phone] ASSESSMENT [facility] [employer] [address] [place] [address], [id number] , tel: [phone] [facility] No Information 7 No Information [employer], [address] [place] [address], [id number] , tel:+ [phone] [facility] No Information Services [employer]. , [place], [place], [facility], . OFFICE VISIT ESTAB PT 15 MIN [employer], [address] [place] [address], [id number] , tel:+ [phone] [facility] No Information 7 No Information [employer], [address] [place] [address], [id number] , tel:+ [phone] [facility] Anemia, unspecifiedA STHMA,UNSPEC IFIED TYPE, UNSPECIFIED No Information Family History Family Member Type Diagnosis Age At Onset Mother Problem (finding) renal stone Sister Problem (finding) asthma Father Problem (finding) asthma Sister Problem (finding) asthma Sister Problem (finding) Alive and well Brother Problem (finding) Alive and well Brother Problem (finding) Alive and well Immunizations Vaccine Date Status Comments Flu Vaccine ([id number]) administered Sour ce: New Immunization Record Flu (age 3 and above) administered Note: VIS given, S/E and contraindications reviewed, denies allergies ; Source: New Immunization Record hep B (ped/adol, 3 dose) administered Nicole rce: New Immunization Record Payers Payer name Insurance type Covered democrat ID Authoriza tion(s) [facility] [employer] [place] [id number] Medicaid [id number] [facility] [employer] CI [id number] [facility] [employer] [place] [id number] Social History Type Description Quantity Date Captured Comments Alcohol Use Details Unknown Caffeine Use Details Unknown Tobacco Use Status No Information Smoking Status No Information Sex Female Sexual Orientation Straight or heterosexual Gender Identity Female Chief Complaint And Reason For Visit No Information Reason For Referral Reason For Referral No Information Plan Of Treatment Date Type Action Status Goal Unhealthy drug use screening due Goal Depression Scree nabila. Due on due Goal Tobacco screenin g. Due on due Goal Pap/HPV testing. Due on due Goal Hepatitis C screening due Goal Depression Scree nabila. Due on due Goal Pap/HPV testing. Due on due Goal Hepatitis C screening due Goal Unhealthy drug use screening due Goal Unhealthy drug use screening due Goal Hepatitis C screening due Goal Pap/HPV testing. Due on due Goal Depression Scree nabila. Due on due Goal Lifestyle education regardin g diet completed Goal Depression Scree nabila. Due on due Goal Pap/HPV testing. Due on due Goal Hepatitis C screening due Goal Unhealthy drug use screening due Goal Hepatitis C scre ening. Due on due Goal Pap/HPV testing. Due on due Goal Depression Scree nabila. Due on due Goal Unhealthy drug use screening due Goal Depression Scree nabila. Due on due Goal Unhealthy drug use screening due Goal Hepatitis C scre ening. Due on due Goal Pap/HPV testing. Due on due Goal Depression Scree nabila. Due on due Goal Unhealthy drug use screening due Goal Hepatitis C scre ening. Due on due Goal Pap/HPV testing. Due on due Goal Pap/HPV testing. Due on due Goal Unhealthy drug use screening due Goal Depression Scree nabila. Due on due Goal Hepatitis C scre ening. Due on due Goal HPV. Due on due Goal Depression Scree nabila. Due on due Goal Hepatitis C Screen due Goal Pap/HPV testing. Due on due Goal Hepatitis C Screen due Goal Pap/HPV testing. Due on due Goal Pap/HPV testing. Due on due Goal Hepatitis C Screen due Goal Pap/HPV testing. Due on due Goal Lifestyle education regardin g diet completed Goal HIV screen due Goal Pap/HPV testing. Due on due Goal Dietary manageme nt education, guidance, and counseling completed Goal Td vaccine. Due on 18 due Goal Depression scree nabila. Due on due Goal PHQ9. Due on due Goal Pap/HPV testing. Due on due Goal Tdap. Due on due Goal Suicide risk ass essment. Due on due Goal PHQ9. Due on due Goal Pap/HPV testing. Due on due Goal Depression scree nabila. Due on due Goal Suicide risk ass essment. Due on due Goal Tdap. Due on due Goal Td vaccine. Due on 18 due Goal Td vaccine. Due on 18 due Goal Tdap. Due on due Goal Suicide risk ass essment. Due on due Goal Depression scree nabila. Due on due Goal Pap/HPV testing. Due on due Goal PHQ9. Due on due Goal PHQ9. Due on due Goal Depression scree nabila. Due on due Goal Suicide risk ass essment. Due on due Goal Pap/HPV testing. Due on due Goal Tdap. Due on due Goal Td vaccine. Due on due Goal Td vaccine. Due on 18 due Goal Suicide risk ass essment. Due on due Goal Depression scree nabila. Due on due Goal Tdap. Due on due Goal PHQ9. Due on due Goal Pap/HPV testing. Due on due Goal Tdap. Due on due Goal PHQ9. Due on due Goal Influenza vaccin e. Due on due Goal Suicide risk ass essment. Due on due Goal Td vaccine. Due on 17 due Goal PAP. Due on due Goal Influenza vaccin e. Due on due Goal PHQ9. Due on due Goal Td vaccine. Due on due Goal PAP. Due on due Goal Suicide risk ass essment. Due on due Goal Tdap. Due on due Goal Influenza vaccin e. Due on due Goal Td vaccine. Due on due Goal PAP. Due on due Goal Suicide risk ass essment. Due on due Goal Tdap. Due on due Goal PHQ9. Due on due Goal Tdap. Due on due Goal Suicide risk ass essment. Due on due Goal PHQ9. Due on due Goal Influenza vaccin e. Due on due Goal Td vaccine. Due on 17 due Goal PAP. Due on due Goal PHQ9. Due on due Goal Influenza vaccin e. Due on due Goal PAP. Due on due Goal Tdap. Due on due Goal Td vaccine. Due on 17 due Goal Suicide risk ass essment. Due on due Goal Td vaccine. Due on 16 due Goal PAP. Due on due Goal Tdap. Due on due Goal Suicide risk ass essment. Due on due Goal PHQ9. Due on due Goal Influenza vaccin e. Due on due Goal Influenza vaccin e. Due on due Goal Tdap. Due on due Goal PHQ9. Due on due Goal PAP. Due on due Goal Suicide risk ass essment. Due on due Goal Td vaccine. Due on due Goal Suicide risk ass essment. Due on due Goal PAP. Due on due Goal Td vaccine. Due on due Goal Tdap. Due on due Goal PHQ9. Due on due Goal Influenza vaccin e. Due on due Goal PHQ9. Due on due Goal Influenza vaccin e. Due on due Goal Suicide risk ass essment. Due on due Goal Td vaccine. Due on due Goal Tdap. Due on due Goal PAP. Due on due Goal Suicide risk ass essment. Due on due Goal Influenza vaccin e. Due on due Goal Tdap. Due on due Goal PAP. Due on due Goal Td vaccine. Due on due Goal PHQ9. Due on due Goal Tobacco cessation counseling completed Goal Suicide risk ass essment. Due on due Goal Influenza vaccin e. Due on due Goal Td vaccine. Due on 16 due Goal Tdap. Due on due Goal PHQ9. Due on due Goal PAP. Due on due Goal PHQ9. Due on due Goal Suicide risk ass essment. Due on due Goal Influenza vaccin e. Due on due Goal PAP. Due on due Goal Tdap. Due on due Goal Td vaccine. Due on 16 due Goal Tobacco cessation counseling completed Goal Tobacco cessation counseling completed Referral Ordered: Neurology (related to Bilateral leg weakness) ordered Referral Ordered: Referrals: Neurology. Evaluate and treat ordered Referral Ordered: Physical Therapy: [address] P (related to Renal calculus) ordered Referral Referred To: Physical Therapy: [address] P Ordered: Referrals: Physical Therapy: [address]. Evaluate and treat ordered Referral Referred To: [facility] [address] [place] [address], [phone] Ordered: Referrals: Obstetrics and Gynecology. [facility] ordered Referral Ordered: Referrals: Urology. Evaluate and treat ordered Referral Ordered: Referrals: Nephrology. Consult ordered Referral Ordered: Gastroenterology. ordered Future Order: Lab Order CBC w/Au to Diff (579), Ordered on: Ordered Future Order: Lab Order Comprehe nsive Metabolic Panel (194), Ordered on: Ordered Future Order: Lab Order Free T4 (673), Ordered on: Ordered Future Order: Lab Order Hemoglob in A1c (621), Ordered on: Ordered Future Order: Lab Order Lipid Pa rosetta (344), Ordered on: Ordered Future Order: Lab Order TSH Base line KH (349), Ordered on: Ordered Future Order: Lab Order Vitamin D 25 Hydroxy Level ([id number]), Ordered on: Ordered Future Order: Lab Order Urinalys is That Reflexes To Microscopic (1162), Ordered on: Ordered Future Order: Lab Order Magnesiu m Level (369), Ordered on: Ordered Future Order: Lab Order STOOL CU LTURE ([id number]), Ordered on: Ordered Future Order: Radiol ogy Order MRI: Thoracic Spine (MRITSPINE), Sent on: Sent Future Order: Radiol ogy Order US (Ultrasound): (US), Appointment on: , Sent on: Sent Future Order: Lab Order CREATINI NE/CR (33038), Ordered on: Ordered Future Order: Lab Order Urinalys is ([id number]), Ordered on: Ordered Future Order: Lab Order Helicoba ct H Pylori Breath ([id number]), Ordered on: Ordered Future Order: Radiol ogy Order US ABD COMP, 99948 (US ABD COM), Ordered on: Ordered Future Order: Radiol ogy Order RAD EXAM FINGER(S) 2V, 48456 (XR FINGER), Ordered on: Ordered Future Order: Radiol ogy Order US ABD COMP, 51595 (US ABD H.BLOOM), Appointment on: , Sent on: Sent Future Order: Lab Order HELICOBA CTER FECAL ([id number]), Ordered on: Ordered Future Order: Lab Order STOOL CU LTURE ([id number]), Ordered on: Ordered Future Order: Lab Order HELICOBA CTER PYLORI - IGG (4091), Ordered on: Ordered Future Order: Lab Order TISSUE T RANSGLUTINASE IGG (2917), Ordered on: Ordered Future Order: Lab Order TISS TRA NSGLUTAMINASE IGA (1334), Ordered on: Ordered Future Order: Lab Order CBC (W D IFF AND PLATELET) (1979), Sent on: Sent Future Order: Lab Order SCREEN F OR BETA HEMOLYTIC STREP B (5022), Appointment on: , Sent on: Sent Future Order: Lab Order Urine Di pstick ([id number]), Appointment on: Ordered Future Order: Lab Order FOBT Yesi gnostic (29957), Appointment on: Ordered Future Order: Lab Order AFP Quad (3121), Appointment on: , Sent on: Sent Future Order: Lab Order Urine Di pstick (34293), Appointment on: Ordered Future Order: Lab Order Urine Pr egnancy Test (14117), Appointment on: Ordered Future Order: Lab Order Urine Pr egnancy Test (05939), Appointment on: Ordered Future Order: Lab Order Urine Pr egnancy Test ([id number]), Appointment on: Ordered Future Order: Lab Order T-4 (104 0), Appointment on: , Sent on: Sent Future Order: Lab Order CBC (W D IFF AND PLATELET) (1979), Appointment on: , Sent on: Sent Future Order: Lab Order COMPREHE NSIVE METABOLIC PANEL (977), Appointment on: , Sent on: Sent Future Order: Lab Order T3 UPTAK E (1039), Appointment on: , Sent on: Sent Future Order: Lab Order TSH, 3RD GENERATION (1902), Appointment on: , Sent on: Sent Future Order: Lab Order Urine Pr egnancy Test (36488), Appointment on: Ordered Future Order: Lab Order Urine Di pstick (33211), Appointment on: Ordered Future Order: Lab Order Urine Pr egnancy Test (94091), Appointment on: Ordered Future Order: Lab Order Urine Pr egnancy Test (82490), Appointment on: Ordered History Of Present Illness Encounter Date Complaint History Of Prese nt Illness Follow Up of Anxiety Note BH warm hand off done todayPt states her anxiety is out of controlShe vomits daily due to anxietyStopped going to PT for leg weakness, has not made neuro appointmentDoes not have her voicemail set up letter Pt in need of le tter to cover dates missed since last disability letter ended.Last letter ended 03/22/23Pt has follow up with PCP 04/01/23 but cannot wait until that time due to work threatening to fire her Comments: Pt has had ongoing anxiety and depressionPer last visit 02/23/24 w/ Dr. Albarran there was an aim to taper off clonidine and switch to hydroxyzinePt states still taking what she had left of clonididne Pt has not been taking fluoxetine 40mg daily. Pt states she was taking medication here or there when clonidine or hydroxyzine wasnt workingDenies SI/HI at this time1 year old baby at home with her - clear positive change in tone when speaking about baby Anxiety This is a follow up visit. The patient reports functioning as extremely difficult. The Global Assessment of Functioning Scale (GAF) = 51. The patient presents with depressed mood, difficulty concentrating, difficulty falling asleep, difficulty staying asleep, diminished interest or pleasure, excessive worry and loss of appetite but denies thoughts of or suicide. Work Letter #Anxiety- uncont rolled- taking clonidine 3-4x per day- trying breathing techniques, but it's getting worse and worse- heart starts to race, has gone to the ED multiple times#Kidney stones- recently went to the ED --> 7 mm, needs surgery to remove it, on waiting list for Dr. Gardiner#Weakness in legs- going to PT, was told she has drop foot- has not seen neurology#Nausea- Can't eat- throws up multiple times a day- losing weightHas 1 year old daughter at home Anxiety This is an initi al visit. The patient reports functioning as somewhat difficult. The Global Assessment of Functioning Scale (GAF) = 51. The patient presents with anxious/fearful thoughts, depressed mood, difficulty concentrating, difficulty falling asleep, difficulty staying asleep, fatigue and loss of appetite but denies thoughts of or suicide. The Anxiety is associated with headache, nausea, trembling and vomiting. Additional information: currently not taking medication, pt is seeking to start medication. Telephone visit pt agreed to TV due to pandemic Note #Back Pain- weak ness in legs and foot, not able to walk properlyWhen DC-ed from hospital, referred for home PT, but this was not covered/never got set upWas re-referred on 12/25, still waiting to hear from PT to schedule apptDoes not feel like she can go back to work at this timePatient consented to a phone visit. Phone visit conducted due to COVID-19 pandemic. Patient at home for visit. Telehealth Patient has cons ented to this phone visit during COVID-19 pandemic. Right leg weakness Patient was s een at [facility] for left flank pain and was found to have right leg weakness while in the ER. Patient reports pain rating 7/10, describing the pain as sharp in nature. Additionally, the patient reports experiencing numbness and tingling sensation in her feet. 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 MRI of th e brain, cervical/thoracic/lumber spine were all normal. Labs were also normal. No definite etiology for her right leg weakness causing her to have trouble walking was found. Pt was refer to physical therapy for rehabilitation. pt requesting referral to physical therapy add Pt has upcoming appt with sustainability project manager Dr. Phong Griffith, out [facility] on 01/09 reports office needs a referral. Pt also wanted to share that she has [employer] insurance. . The telephone visit was conducted during the pandemic. Patient consented to telephone visit todayTime of visit 15 min infertility The age of menar paula onset was 14. Patient not . : 3. Parity: Term: 1. Pre-Term: 1. : 1. Livin. The patient's relevant history is negative for hypertension, obesity, oral contraceptive use and .Additional information: pt is requesting a referral for IVF treatments states she has been trying for the past 5 years. Telehealth visit The symptoms be reilly 2 days ago. Aggravating factors include --. Relieving factors include --. This is a Telemedicine phone call visit conducted during the - PandemicTelehealth visit started: 4:41pmvomiting for 2 daysvomited every 2 hoursback pain since 11pmTaking Toradol Abd pain - upperLMP - 06/05/2019I called the [facility] to sign out patient to triage nurseTelehealth visit ended: 4:52pmVisit time: 11 min. Vomiting Onset: 3 Weeks. The location is midline. The quality of the pain is achy. Associated symptoms include diarrhea and nausea. Pertinent negatives include constipation. Follow Up of ED/Abdominal pain P ain scale: 10/10. Associated symptoms include diarrhea, nausea and vomiting. Additional information: t5old she has an infection in kidney. was swtarted on abx. still taking them. still has pain and vomiting. pmh kidney stones and asthma. smoke no etoh no sh lives w and kids. 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 trying to conceive Had a tubal r eversal 3 months ago in [place]. Here to see why she has not conceived. New partner who has no children. Pt. has 3 and last one 10s year ago. Menses regular, no STDs. Told her about [facility]. May access them. Explained she needs to wait before she consideres herself unable to conceive. Needs a pap. Dyspareunia Last menstrual p eriod was on 01/09/2018. The age of menarche onset was 14. Patient not . The patient's relevant history is negative for hypertension, obesity, oral contraceptive use and . Associated symptoms include dyspareunia. Pertinent negatives include bleeding between menses, bloating, constipation, nausea, menstrual cramping, ovulatory pain, vaginal dryness or weight loss.Additional information: Has had this since she began her relationship with her new partner. Tried various positions. flu Pt presented for RN visit for flu immunization. Explained procedure and provided VIS. Pt verbalized understanding. Pt states no allergies or reactions to vaccines. Vaccination completed successfully without complications.Provided VIS and copy of vaccine record.Pt also stated she thought she was -- completed urine test as well -- pt negative for . LMP 12/03/2017. Informed pt that if she still does not have her period in 1 week she can call us again for another test. Pt verbalized understanding of POC.Pt overdue for CPE - scheduled w/ Dr. Hicks PHQ-2, FPER and contagion risk complete. Post-surgical Pain Had btl 2d ag o in [place], crying moaning, shakin in pain. back pain Onset: 1 day ago . Severity level is severe. The problem is worsening. Location of pain is lower back.There is no radiation of pain. Context: no injury. Symptoms are aggravated by ascending stairs, daily activities, descending stairs, lifting, lying/rest, rolling over in bed and walking. 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 The patient does not remember a mechanism of injury. The pain began mild but now is 10/10, she has not taken anything at home from it. Tried only heat for pain relief and it did not help. Follow Up of Depression Follow Up of Reyna mo (comments) pt has engaged with in [facility] however there are no prescribers there for med adjustments. reports minimal effect from buspar 5mg BID. continues with episodes of palpitations, skipped" heartbeats with her anxiety.she is also having continued R flank pain d/t recurrent renal stones. has ? hx medullary sponge kidney. has not seen urology or nephrology in years. [facility] to [facility]. [facility]. Follow Up of Reyna mo (comments) needs note for continued FMLA from work. continues psych meds but has been unable to make appts with d/t no rides from [facility]. unable to get in toufch with local provider jassi gave info for. denies SI/HI. still feeling anxious, depressed. sertraline helping some. sleep is improving. getting 2-3 hours sleep. trazodone was not helping. continues with high anxiety. Follow Up of Depression This is a follow up visit. The symptoms occur 2 Weeks. Related symptoms are stable. There is continuation of initial symptoms and improvement of initial symptoms. The patient reports functioning as very difficult. The Global Assessment of Functioning Scale (GAF) = 51. The patient presents with anxious/fearful thoughts, fatigue and loss of appetite but denies depressed mood or diminished interest or pleasure. Follow Up of Depression There is continuation of initial symptoms. The patient reports functioning as very difficult. The Global Assessment of Functioning Scale (GAF) = 51. The patient presents with depressed mood, difficulty concentrating, difficulty falling asleep, difficulty staying asleep and feelings of guilt but denies diminished interest or pleasure or thoughts of or suicide. The patient's risk factors include history of depression. The Follow Up of Depression is aggravated by conflict or stress and social interactions. The patient's relieving factors are knitting. Follow Up of Reyna mo (comments) Pt here for f/u depression. Missed her follow up appt and her appt w/ BH. States that she has been evicted from her apartment because she didnt get the money from [employer] in time. Now living at a friend's house with her kids. Her mom stopped going to family therapy with her. Thinks that the medication is helping. Has also started goign to a knitting group which has been helpful. No SI/HI Anxiety Depression Stressed Sleep disturbance Follow Up of Depression There is continuation of initial symptoms. The patient reports functioning as very difficult. The Global Assessment of Functioning Scale (GAF) = 50. The patient presents with depressed mood and diminished interest or pleasure but denies thoughts of or suicide. The patient's risk factors include history of depression and history of suicidal attempts. The Follow Up of Depression is aggravated by conflict or stress and traumatic memories. Follow Up of Depression This is a follow up visit. There is continuation of initial symptoms. The patient reports functioning as very difficult. The Global Assessment of Functioning Scale (GAF) = 50. The patient presents with depressed mood, difficulty concentrating, difficulty falling asleep, diminished interest or pleasure, fatigue, feelings of guilt and loss of appetite but denies restlessness or thoughts of or suicide. Additional information: pt attending family therapy with her mom and dad, has gone twice. next appt 02/27. mom and pt are listening to each other. working through some very difficult things in their relationship. Follow Up of Depression This is a follow up visit. There is worsening of previously reported symptoms. The patient reports functioning as very difficult. The Global Assessment of Functioning Scale (GAF) = 50. The patient presents with anxious/fearful thoughts, depressed mood, difficulty concentrating, difficulty falling asleep, difficulty staying asleep, diminished interest or pleasure, fatigue, feelings of guilt, loss of appetite and racing thoughts but denies thoughts of or suicide. Additional information: patient stated that she has stopped medication and now feels worse. pt says would be open to go to the [facility]. depression This is a follow up visit. The patient presents with depressed mood, difficulty concentrating, difficulty falling asleep, difficulty staying asleep and diminished interest or pleasure but denies anxious/fearful thoughts. The depression is aggravated by social interactions. The patient denies any headache, nausea and vomiting. Additional information: pt is taking med only 4days in a week, stated she has been on this medication for so long that it not work anymore. Follow Up of Depression This is a follow up visit. There is continuation of initial symptoms. The patient presents with excessive worry but denies depressed mood, difficulty staying asleep or diminished interest or pleasure. Additional information: pt says feeling improved. sleeping without using trazodone. Follow Up of Depression This is a follow up visit. There is continuation of initial symptoms. The patient reports functioning as very difficult. The Global Assessment of Functioning Scale (GAF) = 50. The patient presents with anxious/fearful thoughts, depressed mood, diminished interest or pleasure, excessive worry and racing thoughts but denies difficulty falling asleep, difficulty staying asleep or thoughts of or suicide. Additional information: says sleep is improved, still loss of appetite. says her BF has just taken himself out of the picture. seeing Nadeen. Depression Sleep disturbance Appetite loss Follow Up of Depression The merlin ent presents with anxious/fearful thoughts, depressed mood, difficulty concentrating, difficulty falling asleep, difficulty staying asleep, diminished interest or pleasure, loss of appetite and restlessness but denies racing thoughts or thoughts of or suicide. 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 Follow Up of gastritis Follow Up of Depression This is a follow up visit. There is improvement of initial symptoms. The patient does not present with depressed mood or diminished interest or pleasure. Follow Up of ER ER Patient was seen in the ER at [facility] about 1 week ago .(records requested) And also was seen yesterday in the ER at [facility] ( records requested) for kidney stones abdominal pain Onset: 1 Year. T he severity of the problem is moderate. The problem has worsened. The symptoms are constant. The location is epigastric. Aggravating factors include eating. Associated symptoms include change in appetite. Depression This is an initi al visit. The symptoms occur constantly. The patient reports functioning as very difficult. The Global Assessment of Functioning Scale (GAF) = 48. The patient presents with depressed mood, difficulty concentrating, difficulty falling asleep, diminished interest or pleasure, fatigue, feelings of guilt and loss of appetite but denies restlessness or thoughts of or suicide. The patient's risk factors include history of depression. The Depression is aggravated by lack of sleep. Additional information: sx's for 3 months. estranged relationship with her mother-this causes her pain. abdominal pain (comments) MD fareed acosta: long hx of unexplained abd pain. Exams show stones left kidney, but no obst. Us neg for biliary disease. Has not been checked for H Pylori. C/o pain adb and left flank, with emesis today and yest. Also c/ weight loss. VS show ? 5 lb loss, but over time, her wgt is faily stable. No fever or diarrhea. No travel. No others ell at home. Denies preg. No dysuria. abdominal pain Onset: 2 Weeks. The location is midline. The patient reports radiation to the back. The quality of the pain is sharp. Associated symptoms include back pain, flank pain and nausea. Pertinent negatives include dizziness, fever and vomiting.Additional information:hx of kidney stones. Kidney stones Onset: 4 months ago. Pain level is 7. The problem occurs daily and has not changed. Associated symptoms include bloating, flank pain, nausea and vomiting. Pertinent negatives include dysuria, fever and suprapubic pain. Additional information: Vomiting every morning for greater than 6 months, has pain in right upper side, notes stomach is bloated, has hx of kidney stones on both sides, only RIGHT is bothersome. Abdominal pain Onset: 1 Day. Pa in scale: 9/10. The problem has worsened. The location is right lower quadrant. The patient reports radiation to the back. Associated symptoms include back pain, bloating, flank pain, nausea and vomiting. Pertinent negatives include constipation, diarrhea, fever and hematuria.Additional information:hx of kidney stones in both kidneys, they were visualized at ED in Feb 2014 - episodes of vomiting today, could not go into work; tubal ligation 2009. LLQ pain The symptoms beg an 3 days ago. The symptoms are reported as being moderate. The symptoms occur daily. The location is LLQ. Relieving factors include ibuprofen. pt has hx of bilat kidney stones. last attack was was > 2 yrs ago. noting left flank pain radiating @ to LLQ. no F/C finger pain The symptoms beg an 1 day ago. The symptoms are reported as being moderate. The symptoms occur daily. The location is R hand - finger. Aggravating factors include movement. Relieving factors include none. Pt fell on her R hand and hurt her finger. 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 Related to Right leg weakness - Started on Flomax 0.4 mg po daily - Ondansetron 4 mg po TID prn nausea- Ibuprofen/ Tylenol prn - Oxycodone 5 mg every 4-6 hour prn pain # 12- Push fluids - F/U with Urology in am Related to Kidney stones Go to [facility] monica Mckee called [facility] Triage nurse and signed out patient Related to Abdominal pain with vomiting Giving encouragement to exercise Related to Body mass index (BMI) 22.0-22.9, adult Lifestyle education regarding di et Related to Body mass index (BMI) 22.0-22.9, adult Giving encouragement to exercise Related to Body mass index (BMI) 19.9 or less, adult Dietary management e ducation, guidance, and counseling Related to Body mass index (BMI) 19.9 or less, adult Return next for annual. Related to Dyspareunia in female UA and urine pregnan cy negative.Follow-up with me in two days for evaluation of back pain and swelling. US of that area ordered. Will discuss results at next visit or call with results.Take 800mg of Ibuprofen every 8 hours as needed for pain. Take with food! Continue using heat for comfort. Related to Other acute back pain continue zoloft.incr ease buspar to 10mg twice daily.continue f/u with your counselor. we will follow up in another 4-6 weeks to see how the new dose is treating you. Related to Major depressive disorder, single episode, unspecified check UA and renal f unction today.percocet PRN.drink tons of water.urgent urology referral. Related to Calculus of kidney with calculus of ureter continue sertralinea dding buspar 2x daily.follow up in ~1 month.letter for work 1 month out.will have jassi call tomorrow to get in to see new place for psych closer to home.you can also try calling [facility]. Related to Major depressive disorder, single episode, unspecified Please keep your harvinder t w/ BHContinue medicationFollow-up 2 weeksGo to ER or call 911 if any SI/HI Related to Major depressive disorder, recurrent, unspecified Increase sertraline to 100mgPt will see Brenda today at [address] [place] [address] seeing family counselor (located on [facility])Able to contract for safety. No SI/HIFollow-up 4-6 weeksCall 911 or go to ER if any SI/HI Related to Depression continue sertraline dailylaurice on 02/26follow up with Precious Engle in 7-10 dayscall if not feeling safe Related to Major depressive disorder, recurrent, unspecified not currently an issue Related t o Left flank pain sertraline 50 mg angel lyButler Day Programappointment with Brenda for 02/23 Related to Major depressive disorder, recurrent, unspecified pt to call 911 if vict[place] ving thoughts of hurting selfmake appt with Nadeen Frank Related to Depression this may be due to belinda carter stonesdrink lots of fluidsreferral to kidney specialist Related to Left flank pain omeprazole Related to Epiga stric pain escitalopram continu etrazodone at night as neededmake appt with Nadeen Frank Related to Major depressive disorder, recurrent, unspecified continue with escita lopram daily 20 mgtake the trazodone at night to help with sleepfollow up with Nadeen cuellar Related to Major depressive disorder, recurrent, unspecified increase escitalopra m to 20 mg dailytake trazodone at night for sleep, can take 1 or 2follow up with Nadeen Frank on 01/11 for appt with Behavior[facility] Related to Depression, unspecified depression type drink lots of fluids toradol for paincall if worse Related to Left flank pain continue to take esc italopram 10 mg dailycontinue to have contact with your friend for supportfollow up with me in 1 month Related to Depression, unspecified depression type omeprazole daily Related to Epig astric pain [facility] to make urgent appointmentescitalopram 1 daily Related to Depression, unspecified depression type get the breath testw ork notewe will send a urine culture Related to UTI (lower urinary tract infection) drink lots of fluids Related to Calculus of kidney I think you have a kidney cyst R elated to Abdominal pain, left lower quadrant Continue to stay hyd rated: drink gatorade or pedialyte in small sipsBRAT diet: Bananas, Rice, Apples, ToastAvoid caffeine & dairy until your stomach returns to normal Related to Abdominal Pain ibuprofen as needed Related to L eft flank pain get XR donebuddy tape fingers fo r now Related to Finger pain Reviewed medications Take new medication as prescribe d Patient understood a nd made informed decision Increase activity level Reviewed medications Patient understood a nd made informed decision Continue current medication Go to ER if risk of harm to self or others Call office if symptoms worsen Follow exercise program Add structured routine Reviewed medications Increase rest Continue current medication Reviewed medications Activity as tolerated Return to office in 48-72hours R elated to Take new medication as prescribe d Activity as tolerated Reviewed medications Assessments Type Assessment Date No Information Patient Care Teams Name Effective Dates (start - stop) Status Members No Information
--- OUTSIDE RECORDS SUMMARY | 2025-01-18 11:30 | XMS_ITS | Encounter Summary ---
Author Organization [facility] Address [address] [place] [phone] Phone Care Team Providers Care Light Oil Operator Name Role Phone Pcp, Not Required Primary Care Provider Unavaila ble Reason for Visit * Physical Therapy (Within 1 month) - Authorized Specialty Diagnoses / Procedures Referred By Contac t Referred To Contact Physical Therapy Diagnoses Labral tear of long head of right biceps tendon, sequela Nikita Mireles PA-C [address] [place] [address] Dr. Meghann [place] Phone: tel: fax: [email or web address] [facility] [address] [place] [address] Phone: tel: Referral ID Status Reason Start Date Expiration Date V isits Requested Visits Authorized [id number] Authorized 11/26/2024 02/17/2025 16 16 Encounter Details Date Type Department Care Team (Late st Contact Info) Description 01/18/2025 11:30 AM EST Office Visit [facility] [address] [place] [id number] Nikita Mireles PA-C [address] [place] [address] Dr. Meghann [place] [email or web address] Karyna Longoria, PT [address] [place] [address] Weakness of right shoulder (Primary Dx) Social [...] Progress Notes * Karyna Aguirre, PT - 01/18/2025 11:30 AM EST Physical Therapy Treatment Note Patient Name: Paul Estrella Date of : 1985 This patient has attended 9 visits since the onset Physical Therapy. Referring MD: Nikita Mireles PA-C [address] [place] [address] [place] [id number] Weakness of right shoulder [R29.898] Precautions: Asthma, follow Dr. Sweeney's std rotator cuff protocol Pt s/p R: -shoulder arthroscopic rotator cuff repair of supraspinatus -biceps tenodesis -Subacromial decompression -Debridement of labrum Performed on 11/12/24 ---- 3 weeks 12/03 5 weeks 12/17 10 weeks: 01/21 ---- Next f/u: 02/10/25 At last follow up with Dr. Sweeney on 12/30: Transitioning from immobilization to active range of motion exercises. - Continue physical therapy focusing on range of motion for six weeks. - Advise against lifting more than a cup of coffee or cell phone with R arm for six weeks. - Schedule follow-up in six weeks to assess progress and consider strengthening exercises. Subjective comments: Pt 12 min late to appointment today Pt 9 weeks 4 days s/p R rotator cuff repair. State she is feeling unwell today secondary to kidney stones. Unable to tolerate supine positioning. States she was in the hospital for pain management over weekend, has appt with urologist on 01/22. Pain comments pre-treatment: No R shoulder pain Objective Measures: PROM: R shoulder: Flexion: 160 deg Abduction: 155 deg IR: 75 deg ER: 75 deg Upper trapezius compensation with pulleys, resolved after cues and mirror Interventions: Procedural Interventions Parameters THERAPEUTIC EXERCISE Pulleys flexion, abduction, scaption - ( good ability to keep passive, cues toretract scap and depress shoulders) x 20 each plane Cane flexion AAROM flexion and abduction with R UE Mostly passive within comfortable range x 20 each with 3 15s holds at end range each motion AROM x 10 flexion in 20 deg beach chair position R UE, abduction x 10 in 20 deg beach chair ER/IR AAROM with cane 2x10 in scaption THERAPEUTIC ACTIVITIES N/a NEUROMUSCULAR RE-ED N/a MANUAL THERAPY Sidelying scapular mobilization all directions Beach chair position in 20 deg: PROM flex, abd, IR ER Grade 2 joint mobilizations posterior R shoulder MODALITIES N/a Home Exercise Program: Access Code: [email or web address] URL: [email or web address] Date: 01/06/2025 Prepared by: Karyna Aguirre Exercises - Flexion-Extension Shoulder Pendulum with Table Support - 1 x daily - 7 x weekly - 3 sets - 10 reps - Horizontal Shoulder Pendulum with Table Support - 1 x daily - 7 x weekly - 3 sets - 10 reps - Circular Shoulder Pendulum with Table Support - 1 x daily - 7 x weekly - 3 sets - 10 reps - Supine Shoulder Flexion Extension AAROM with Dowel - 2 x daily - 7 x weekly - 2 sets - 10 reps - Supine Shoulder Abduction AAROM with Dowel - 2 x daily - 7 x weekly - 2 sets - 10 reps - Supine Shoulder Flexion Extension Full Range AROM - 1 x daily - 7 x weekly - 1 sets - 10-15 reps - Seated Shoulder Flexion AAROM with Jeffy Behind - 3 x daily - 7 x weekly - 2 sets - 10 reps - Seated Shoulder Scaption AAROM with Jeffy at Side - 3 x daily - 7 x weekly - 2 sets - 10 reps - Seated Shoulder Abduction AAROM with Jeffy Behind - 3 x daily - 7 x weekly - 2 sets - 10 reps 20-30s holds end-range AAROM flexion/abd 90/90 IR ER AAROm with cane, pillow under elbow Assessment: Progression in ROM since last visit particularly with abduction, pleased with progress. Progressed to beach chair AROM with good response, no increase in pain with either flexion or abduction. Interrupted course of PT due to missed appointments from kidney pain, put pt on high priority wait list through end of February to continue to progress both passive and active range of motion. Goals: GOAL (Short Term): in 2-3 wks 1.PROM right shoulder IR to 75 degr GOAL MET 2.PROM right shoulder elevation 125 GOAL MET 12/30/24 OUTCOME ([facility]): By Dec 17.PROM: -sh elevation to 165 GOAL MET -Abd to 150 PROGRESSING -ER 80 PROGRESSING -IR 80 PROGRESSING -Indep with AAROM GOAL MET By Dec 31: -- NOT MET 2.AROM -AROM sh elevation and abduction to [...] be seen 1-2 times per week for 16-20 weeks. PROM per protocol AROM per protocol RC isometrics starting Dec 31 Strengthening (tband, dynamic stab) start Jan 31 Plan: Progress through Dr. Sweeney's rotator cuff protocol Next visit: Continue to progress ROM Karyna Aguirre, [place] [id number] documented in this encounter Plan of Treatment Upcoming Encounters Date Type Department Care Team (Late st Contact Info) Description 01/26/2025 11:00 AM EST Office Visit [address] [place] [address] Nikita Mireles PA-C [address] [place] [address] [place] [address] [email or web address] Karyna Aguirre, PT [address] [place] [address] 02/03/2025 2:30 PM EST Office Visit [address] [place] [address] Nikita Mireles PA-C [address] [place] [address] [place] [address] [email or web address] Karyna Aguirre, PT [address] [place] [address] 02/10/2025 10:00 AM EST Office Visit [facility] [address] [place] [address] Nikita Mireles PA-C [address] [place] [address] [place] [address] Karyna Aguirre, PT [address] [place] [address] 02/10/2025 2:40 PM EST Office Visit [facility] [address] [place] [address] Nikita Mireles PA-C [address] [place] [address] [place] [address] 02/12/2025 11:30 AM EST Office Visit [facility] [address] [place] [address] Nikita Mireles PA-C [address] [place] [address] [place] [address] Karyna Aguirre, PT [address] [place] [address] 02/17/2025 10:00 AM EST Office Visit [facility] [address] [place] [address] Nikita Mireles PA-C [address] [place] [address] [place] [address] [email or web address] Karyna Aguirre, PT [address] [place] [address] 02/19/2025 1:00 PM EST Office Visit [facility] [address] [place] [address] Nikita Mireles PA-C [address] [place] [address] [place] [address] Karyna Aguirre, PT [address] [place] [address] 02/22/2025 10:00 AM EST Office Visit [facility] [address] [place] [address] Nikita Mireles PA-C [address] [place] [address] [place] [address] Karyna Aguirre, PT [address] [place] [address] 02/24/2025 10:45 AM EST Office Visit [facility] [address] [place] [address] Nikita Mireles PA-C [address] [place] [address] [place] [address] Karyna Aguirre, PT [address] [place] [address] documented as of this encounter Visit Diagnoses Diagnosis Weakness of right shoulder- Primary documented in this encounter Care Teams Light Oil Operator Relationship Specialty Start Date End Date Pcp, Not Required [address] [place] [id number] PCP - General 11/09/15 documented as of this encounter Additional Source Comments The information contained in this document represents components of the legal health record. It is not the complete legal health record.[facility]
[2025-01-20] VITALS (8 sets, daily range): BP systolic 111–146; BP diastolic 63–98; PULSE 90–156; RESP 15–27; TEMP 37; O2SAT 97–100; BMI 26.2
--- NOTE | ~2025-01-20 | XR_ITS ---
EXAMINATION: XR ABDOMEN KUB CLINICAL INDICATION: R flank pain stone hx COMPARISON: CT from December 18, 2023 TECHNIQUE: AP view of the abdomen. FINDINGS: 2 mm stones are again seen projecting over the region of the right kidney. The more cephalad and medial stone has migrated superior medially when compared to the prior pattern weaver and may now reside within the renal pelvis. 2-3 smaller stones are evident in the region of the left kidney the largest stone is just below the extra region of the left kidney. Numerous calcifications in the pelvis are likely phleboliths. There is moderate gas in small and large bowel. XR/XR KUB IMPRESSION: Again seen are bilateral kidney stones. One of the 8 mm stones in the right kidney has migrated superomedially and may now reside within the renal pelvis. Electronically signed by: Rolando Guzman MD 01/20/2025 02:26 PM MICHELLE
--- NOTE | 2025-01-20 12:51 | ED_ITS ---
HPI - General Adult General Chief complaint: Arrhythmia/Palpitations Stated complaint: fast heartbeat Time Seen by Provider: 01/20/25 12:59 History of Present Illness ED Provider: Roc Julio MD HPI narrative: History of Present Illness The patient presents with a two-day history of feeling shaky and anxious. Three weeks ago, during a routine visit with their primary care provider, laboratory studies reportedly showed a low thyroid- stimulating hormone (TSH) level. The PCP subsequently started metoprolol. The patient notes no chest pain and denies fevers. They report being scheduled for an endocrinology appointment but have not yet been seen. Current medications include metoprolol (taken today). No other medications are taken. The patient attributes the shakiness to thyroid issues. Related Data Previous Rx's ?Medication ?Instructions ?Recorded acetaminophen 500 mg tablet 1,000 mg (2 x 500 mg) PO Q 8H PRN 12/17/24 (Tylenol Extra Strength) pain #30 tabs metoprolol succinate 25 mg 12.5 mg (1/2 x 25 mg) PO DA KATEY #90 12/25/24 tablet,extended release 24 hr tabs Allergies Allergy/AdvReac Type Severity Reaction Status Date / Time ceftriaxone Allergy Hives Verified 01/20/25 12:55 Iodinated Contrast Media Allergy Hives Verified 01/20/25 12:55 (Contrast Dye) [facility] Past Medical History Medical History Asthma Kidney stone Medullary sponge kidney Social History Social History (Updated 12/25/24 @ 13:26 by Yesenia Navarrete MA) Household Members: Spouse and Children Housing: House Alcohol intake: never Patient Tobacco Use Status: Never used Tobacco e-Cigarette/Vaping Use: Never Used Advance Directives: No Advance Directives Information Provided: No Patient : No Current occupational status: employed 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 No exophthalmos ENT: Moist mucosa, no pallor. ? Neck: Supple. Skin: ?No observable rash or bruising on exposed or examined skin Respiratory: Breathing comfortably, No distress.Clear to auscultation bilaterally, symmetric chest expansion, No wheeze, rales, ronchi. Cardiovascular: Regular rate and rhythm. No murmurs or rub. Well perfused periphery, warm extremities. No edema. ? Abdominal: No focal tenderness. Soft, no objective distension. No palpable masses or obvious organomegaly. ?No guarding, no rebound tenderness or other peritoneal findings. : No flank tenderness. Neuro: Alert. Gross movement of all extremities intact. ? Psych: Calm. Cooperative. MSK: No grossly visible deformity. Vital signs: See flowsheet Vital Signs: Vital Signs - 24 hr 01/20/25 12:51 01/20/25 13:28 01/20/25 13:41 Temperature 98.6 F Pulse Rate 156 H 124 H 90 Respiratory Rate 20 18 21 H Blood Pressure 137/91 H 146/98 H 111/69 Pulse Oximetry 100 100 99 Oxygen Delivery Method Room Air Room Air Room Air 01/20/25 14:05 01/20/25 15:10 01/20/25 15:36 Temperature Pulse Rate 91 120 H Respiratory Rate 27 H 15 Blood Pressure 111/86 123/63 Pulse Oximetry 100 Oxygen Delivery Method Room Air 01/20/25 15:48 01/20/25 16:26 Temperature 98.6 F 98.6 F Pulse Rate 116 H 116 H Respiratory Rate 16 16 Blood Pressure 111/63 111/63 Pulse Oximetry 97 97 Oxygen Delivery Method Room Air Room Air BMI result Body Mass Index 26.2 Course Course Course Narrative: This is a Rapid Medical Examination (RME) performed by Andrez Cee PA-C in triage. Full HPI, ROS, assessment and treatment plan per primary provider in the Main ED. Hx: 39 yo F hx hyperthyroidism here for eval of right back pain rad to right abd x3 days. hx kidney stones, assoc N/V. no urinary sx. tremulous, states my heart is racing . no chest pain, SOB, dyspnea. compliant w/ all meds. PE: tachycardic to 158 - extension service specialist in charge aware, pt brought back to bed. Plan: labs, tsh, UA, ekg Medications Administered Discontinued Medications Generic Name Dose Route Start Last Admin Trade Name Freq PRN Reason Stop Dose Admin Diazepam 2.5 mg 01/20/25 13:13 01/20/25 13:25 Diazepam 10 Mg/2 Ml Cartridge IVPUSH 01/20/25 13:14 2.5 mg STAT STA Administration Hydrocortisone Sodium Succinate 300 mg 01/20/25 13:13 01/20/25 13:24 Hydrocortisone Sod Succ/Pf 100 Mg Vial IVPUSH 01/20/25 13:14 300 mg ONCE ONE Administration Sodium Chloride 1,000 mls @ 999 mls/hr 01/20/25 13:30 01/20/25 16:24 Ns IV 01/20/25 14:30 Infused .Q1H1M JASMEET Infusion Ketorolac Tromethamine 15 mg 01/20/25 13:13 01/20/25 13:24 Ketorolac Tromethamine 15 Mg/Ml Vial IVPUSH 01/20/25 13:14 15 mg ONCE ONE Administration Methimazole 20 mg 01/20/25 13:36 01/20/25 15:11 Methimazole 10 Mg Tablet PO 01/20/25 13:37 20 mg ONCE ONE Administration Metoprolol Tartrate 5 mg 01/20/25 13:13 01/20/25 13:27 Metoprolol Tartrate 5 Mg/5 Ml Vial IVPUSH 01/20/25 13:14 5 mg ONCE ONE Administration Protocol Morphine Sulfate 4 mg 01/20/25 15:04 01/20/25 15:10 Morphine Sulfate 4 Mg/Ml Cartridge IVPUSH 01/20/25 15:05 4 mg ONCE ONE Administration Protocol Propranolol HCl 20 mg 01/20/25 15:13 01/20/25 15:36 Propranolol Hcl 20 Mg Tablet PO 01/20/25 15:14 20 mg ONCE ONE Administration Protocol Tamsulosin HCl 0.4 mg 01/20/25 13:15 01/20/25 13:26 Tamsulosin Hcl 0.4 Mg Capsule PO 01/20/25 13:16 0.4 mg ONCE ONE Administration Procedures Procedure Narrative Procedure Narrative: EMERGENCY ULTRASOUND INTERPRETATION-Limited Retroperitoneal (Renal) [This study was ordered, performed, and interpreted by myself. The study reveals: Impression: Mild right-sided hydronephrosis [Indication: FLANK PAIN Right Kidney: Mild right hydronephrosis Performed by: Roc Julio MD Images were stored CPT: 15701] Medical Decision Making Medical Decision Making MDM Narrative: Medical Decision Making: [age] FEMALE WITH RECENT DIAGNOSIS OF HYPERTHYROID. ON METOPROLOL ONLY. WORSENING SHAKINESS TREMULOUS. TACHYCARDIC IN SINUS TO THE 150S LOOKS REALLY UNCOMFORTABLE ON ANXIOUS. TSH , 0, free 3.11 Otherwise labs unremarkable. Additionally patient has right flank pain likely acute on chronic ureteral lithiasis. Mild hydronephrosis on bedside ultrasound see report above. 8 mm stone maximal in the renal pelvis in the right side. Doubt this is obstructing. CT to better evaluate given that we were transferring. I spoke to the [facility] transfer line the patient will need transfer as our team here has concerns about lack of inpatient formal daily endocrinology consultation. This time I have started methimazole beta-jcarlos IV fluid defer management to Endocrine at [facility]. Patient is amenable to this transfer. Heart rate has improved although her flank pain is increasing. We will get CT and give her some morphine for the pain. 4:09 PM 01/20/2025 (Dr. Roc Julio): EMS arrived before CT performed for this reason I think it was reasonable to defer cross-sectional imaging to [facility] if urology feels this is needed. There was only mild hydronephrosis and KUB showed only stones in the renal pelvis Preliminary Favored Differential Diagnosis: Kidney stone, UTI, pyelonephritis, thyroid storm, sinus tachycardia, anxiety, electrolyte derangement among additional considered etiologies Testing Interpreted Independently: ?See below for details Radiology or Lab testing Results Reviewed: ?See below for details Consults: ?ed accepting dr abigail fong accepted through transfer line. Transfer Details: Accepted ED to ED transfer Dr. Tidwell accepting through the transfer line for the need of inpatient endocrinology consultation not available here at [facility].. Brief history tachycardic in the 150s, bw PS scale score is 35 impending thyroid storm classification. Received IV and oral beta-jcarlos, methimazole 20, Valium, 1 L normal saline, morphine for flank pain she also has likely ongoing acute on chronic renal colic. KUB shows 8 mm right renal pelvis stone CT later performed showing: Images provided with disc. Independent Historians/External Chart Reviews: ?See below for details Social Determinants of Health Impacting MDM/Planning: ?See below for details Lab Data 01/20/25 13:03 01/20/25 13:03 Labs: Lab Results 01/20/25 Range/Units 13:03 WBC 9.5 (4.8-10.8) X10*3/uL RBC 4.58 (4.20-5.50) X10*6/uL Hgb 13.2 (12.0-16.0) g/dl Hct 38.9 (37.0-47.0) % MCV 84.9 (80.0-98.0) fL MCH 28.8 (27.0-33.0) pg MCHC 33.9 (31.0-35.0) g/dl RDW 12.4 (11.0-16.0) % Plt Count 301 (160-400) X10*3/uL MPV 10.6 (9.4-12.3) fL Immature Gran % (Auto) 0.2 (0.0-0.4) % Neut % (Auto) 65.1 (45-73) % Lymph % (Auto) 26.3 (20-40) % Barnwell % (Auto) 7.8 (2-11) % Eos % (Auto) 0.4 (0-4) % Baso % (Auto) 0.2 (0-2) % Lymph # (Auto) 2.5 (1.2-4.9) X10*3/uL Barnwell # (Auto) 0.7 (0.1-1.2) X10*3/uL Eos # (Auto) 0.0 (0.0-0.4) X10*3/uL Baso # (Auto) 0.0 (0.0-0.2) X10*3/uL Abs Immat Gran (auto) 0.02 (0.00-0.03) X10*3/uL Absolute Neuts (auto) 6.1 (2.0-8.3) x10*3/uL Absolute Nucleated RBC 0.000 (0.0-0.012) X10*3/uL Nucleated RBC % (auto) 0.0 (0.0-0.2) /100WBC Hold Purple Top Cancelled Hold Blue Top SEE NOTE Sodium 139 (135-145) mmol/L Potassium 3.7 (3.3-5.1) mmol/L Chloride 108 (96-108) mmol/L Carbon Dioxide 23 (22-29) mmol/L Anion Gap 12 (12-20) BUN 9 (9-16) mg/dL Creatinine 0.55 (0.5-1.4) mg/dL Estim Creat Clear Calc 142.4 Estimated GFR > 60 Random Glucose 123 H (60-115) mg/dL Calcium 9.9 (8.4-10.2) mg/dL Magnesium 1.6 (1.6-2.6) mg/dL Total Bilirubin 0.8 (0.0-1.0) mg/dL AST 22 (5-31) U/L ALT 21 (0-31) U/L Alkaline Phosphatase 79 (39-117) U/L Total Protein 7.3 (6.5-8.0) g/dL Albumin 4.4 (3.5-5.0) g/dL TSH < 0.01 L (0.32-4.0) uIU/mL Free T4 3.11 H (0.71-1.85) ng/dL Hold Green Top See Note Critical Care Time Critical Care Time Critical Care Time: Yes Total Critical Care Time: 30 Attestation: ED Critical Care: Authorized and Performed by: Roc Julio MD Total critical care time: Approximately 30 min Due to a high probability of clinically significant, life threatening deterioration, the patient required my highest level of preparedness to intervene emergently and I personally spent this critical care time directly and personally managing the patient. This critical care time included obtaining a history; examining the patient; pulse oximetry; ordering and review of studies; arranging urgent treatment with development of a management plan; evaluation of patient's response to treatment; frequent reassessment; and, discussions with other providers. This critical care time was performed to assess and manage the high probability of imminent, life-threatening deterioration that could result in multi-organ failure. It was exclusive of separately billable procedures and treating other patients and teaching time. Discharge Plan Discharge Clinical Impression: Hyperthyroidism, Thyroid storm Patient Disposition: [facility] Transfer Details: Accepted ED to ED transfer Dr. Tidwell accepting through the transfer line for the need of inpatient endocrinology consultation not available here at [facility].. Brief history tachycardic in the 150s, bw PS scale score is 35 impending thyroid storm classification. Received IV and oral beta-jcarlos, methimazole 20, Valium, 1 L normal saline, morphine for flank pain she also has likely ongoing acute on chronic renal colic. KUB shows 8 mm right renal pelvis stone CT later performed showing: Images provided with disc. Instructions: Hyperthyroidism (ED) Prescriptions: No Action acetaminophen [Tylenol Extra Strength] 500 mg tablet 1,000 mg PO Q8H PRN (Reason: pain) Qty: 30 0RF metoprolol succinate 25 mg tablet extended release 24 hr 12.5 mg PO DAILY Qty: 90 0RF Interventions: Acute Care Transfer Worksheet (ED) Last Done: 01/20/25 16:26 Discharge Date/Time: 01/20/25 16:25 Print Language: Burmese
--- NOTE | 2025-01-20 12:52 | ECG_ITS ---
Test Reason : high heart rate Blood Pressure : */* mmHG Vent. Rate : 149 BPM Atrial Rate : 149 BPM P-R Int : 128 ms QRS Dur : 70 ms QT Int : 268 ms P-R-T Axes : 67 34 36 degrees QTcB Int : 422 ms Sinus tachycardia Possible Left atrial enlargement Cannot rule out Anterior infarct , age undetermined Abnormal ECG When compared with ECG of 17-Dec-2024 16:26, Vent. rate has increased by 64 bpm Referred By: Marilou Cee Electronically Signed By: FELICIA TOLLIVER MD
[2025-01-20 13:06] LABS: MANUAL DIFF FLAG NO
--- NOTE | 2025-01-20 13:12 | ED_ITS ---
HPI - Arrhythmia/Palpitations General Chief Complaint: Arrhythmia/Palpitations Stated Complaint: fast heartbeat Time Seen by Provider: 01/20/25 12:59 History of Present Illness ED Provider: joss HPI narrative: 38 Related Data Previous Rx's ?Medication ?Instructions ?Recorded acetaminophen 500 mg tablet 1,000 mg (2 x 500 mg) PO Q 8H PRN 12/17/24 (Tylenol Extra Strength) pain #30 tabs metoprolol succinate 25 mg 12.5 mg (1/2 x 25 mg) PO DA KATEY #90 12/25/24 tablet,extended release 24 hr tabs Allergies Allergy/AdvReac Type Severity Reaction Status Date / Time ceftriaxone Allergy Hives Verified 01/20/25 12:55 Iodinated Contrast Media Allergy Hives Verified 01/20/25 12:55 (Contrast Dye) [facility] Past Medical History Medical History Asthma Kidney stone Medullary sponge kidney Social History Social History (Updated 12/25/24 @ 13:26 by Yesenia Navarrete MA) Household Members: Spouse and Children Housing: House Alcohol intake: never Patient Tobacco Use Status: Never used Tobacco e-Cigarette/Vaping Use: Never Used Advance Directives: No Advance Directives Information Provided: No Patient : No Current occupational status: employed 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 Roc Julio): Lundberg-Wartofsky Point Scale (BWPS) for Thyrotoxicosis from [place] on 01/20/2025 All calculations should be rechecked by clinician prior to use RESULT SUMMARY: 35 points Suggestive of impending thyroid storm INPUTS: Temperature ?F (?C) ?> 0 = <99 Central nervous system effects ?> 10 = Mild (agitation) Gastrointestinal-hepatic dysfunction ?> 0 = Absent Heart Rate (beats/minute) ?> 25 = >=40 Congestive Heart Failure ?> 0 = Absent Atrial fibrillation present ?> 0 = No Precipitating event ?> 0 = No Medications Administered Discontinued Medications Generic Name Dose Route Start Last Admin Trade Name Lorna PRN Reason Stop Dose Admin Diazepam 2.5 mg 01/20/25 13:13 01/20/25 13:25 Diazepam 10 Mg/2 Ml Cartridge IVPUSH 01/20/25 13:14 2.5 mg STAT STA Administration Hydrocortisone Sodium Succinate 300 mg 01/20/25 13:13 01/20/25 13:24 Hydrocortisone Sod Succ/Pf 100 Mg Vial IVPUSH 01/20/25 13:14 300 mg ONCE ONE Administration Sodium Chloride 1,000 mls @ 999 mls/hr 01/20/25 13:30 01/20/25 13:23 Ns IV 01/20/25 14:30 999 mls/hr .Q1H1M JASMEET Administration Ketorolac Tromethamine 15 mg 01/20/25 13:13 01/20/25 13:24 Ketorolac Tromethamine 15 Mg/Ml Vial IVPUSH 01/20/25 13:14 15 mg ONCE ONE Administration Methimazole 20 mg 01/20/25 13:36 01/20/25 15:11 Methimazole 10 Mg Tablet PO 01/20/25 13:37 20 mg ONCE ONE Administration Metoprolol Tartrate 5 mg 01/20/25 13:13 01/20/25 13:27 Metoprolol Tartrate 5 Mg/5 Ml Vial IVPUSH 01/20/25 13:14 5 mg ONCE ONE Administration Protocol Morphine Sulfate 4 mg 01/20/25 15:04 01/20/25 15:10 Morphine Sulfate 4 Mg/Ml Cartridge IVPUSH 01/20/25 15:05 4 mg ONCE ONE Administration Protocol Propranolol HCl 20 mg 01/20/25 15:13 01/20/25 15:36 Propranolol Hcl 20 Mg Tablet PO 01/20/25 15:14 20 mg ONCE ONE Administration Protocol Tamsulosin HCl 0.4 mg 01/20/25 13:15 01/20/25 13:26 Tamsulosin Hcl 0.4 Mg Capsule PO 01/20/25 13:16 0.4 mg ONCE ONE Administration Medical Decision Making Medical Decision Making MDM Narrative: Medical Decision Makin-year-old Preliminary Favored Differential Diagnosis: [ ] among additional considered etiologies Testing Interpreted Independently: ?See below for details Radiology or Lab testing Results Reviewed: ?See below for details Consults: ?See below for details Independent Historians/External Chart Reviews: ?See below for details Social Determinants of Health Impacting MDM/Planning: ?See below for details Differential Diagnosis Differential Diagnoses: The differential diagnosis associated with the presentation includes Thyroid storm, electrolyte derangement, dehydration, anxiety Consult Healthcare Provider Management of the patient was discussed with: Scrap Drop Engineer Endocrinology: Dr. Reis: Recommends initiating methimazole 20 b.i.d. and propranolol 20 b.i.d. suggest possible transfer due to lack of inpatient endocrinology consultation. [employer] Supervisor and hospitalist were consulted to discuss the possibility of transfer or inpatient management here. Lab Data [facility] Lab Attestation statement: I reviewed the patient's lab results. 01/20/25 13:03 01/20/25 13:03 Labs: Lab Results 01/20/25 Range/Units 13:03 WBC 9.5 (4.8-10.8) X10*3/uL RBC 4.58 (4.20-5.50) X10*6/uL Hgb 13.2 (12.0-16.0) g/dl Hct 38.9 (37.0-47.0) % MCV 84.9 (80.0-98.0) fL MCH 28.8 (27.0-33.0) pg MCHC 33.9 (31.0-35.0) g/dl RDW 12.4 (11.0-16.0) % Plt Count 301 (160-400) X10*3/uL MPV 10.6 (9.4-12.3) fL Immature Gran % (Auto) 0.2 (0.0-0.4) % Neut % (Auto) 65.1 (45-73) % Lymph % (Auto) 26.3 (20-40) % [place] % (Auto) 7.8 (2-11) % Eos % (Auto) 0.4 (0-4) % Baso % (Auto) 0.2 (0-2) % Lymph # (Auto) 2.5 (1.2-4.9) X10*3/uL [place] # (Auto) 0.7 (0.1-1.2) X10*3/uL Eos # (Auto) 0.0 (0.0-0.4) X10*3/uL Baso # (Auto) 0.0 (0.0-0.2) X10*3/uL Abs Immat Gran (auto) 0.02 (0.00-0.03) X10*3/uL Absolute Neuts (auto) 6.1 (2.0-8.3) x10*3/uL Absolute Nucleated RBC 0.000 (0.0-0.012) X10*3/uL Nucleated RBC % (auto) 0.0 (0.0-0.2) /100WBC Hold Purple Top Cancelled Hold Blue Top SEE NOTE Sodium 139 (135-145) mmol/L Potassium 3.7 (3.3-5.1) mmol/L Chloride 108 (96-108) mmol/L Carbon Dioxide 23 (22-29) mmol/L Anion Gap 12 (12-20) BUN 9 (9-16) mg/dL Creatinine 0.55 (0.5-1.4) mg/dL Estim Creat Clear Calc 142.4 Estimated GFR > 60 Random Glucose 123 H (60-115) mg/dL Calcium 9.9 (8.4-10.2) mg/dL Magnesium 1.6 (1.6-2.6) mg/dL Total Bilirubin 0.8 (0.0-1.0) mg/dL AST 22 (5-31) U/L ALT 21 (0-31) U/L Alkaline Phosphatase 79 (39-117) U/L Total Protein 7.3 (6.5-8.0) g/dL Albumin 4.4 (3.5-5.0) g/dL TSH < 0.01 L (0.32-4.0) uIU/mL Free T4 3.11 H (0.71-1.85) ng/dL Hold Green Top See Note Discharge Plan Discharge Clinical Impression: Hyperthyroidism, Thyroid storm Patient Disposition: [facility] Transfer Details: Accepted ED to ED transfer Dr. Tidwell accepting through the transfer line for the need of inpatient endocrinology consultation not available here at [place].. Brief history tachycardic in the 150s, bw PS scale score is 35 impending thyroid storm classification. Received IV and oral beta-jcarlos, methimazole 20, Valium, 1 L normal saline, morphine for flank pain she also has likely ongoing acute on chronic renal colic. KUB shows 8 mm right renal pelvis stone CT later performed showing: Images provided with disc. Instructions: Hyperthyroidism (ED) Prescriptions: No Action acetaminophen [Tylenol Extra Strength] 500 mg tablet 1,000 mg PO Q8H PRN (Reason: pain) Qty: 30 0RF metoprolol succinate 25 mg tablet extended release 24 hr 12.5 mg PO DAILY Qty: 90 0RF Print Language: Kazakh
[2025-01-20 13:16] LABS: Hematocrit 38.9 % (37.0-47.0); Hemoglobin 13.2 g/dl (12.0-16.0); Imm Gran Abs Auto 0.02 X10*3/uL (0.00-0.03); Imm Gran Pct Auto 0.2 % (0.0-0.4); Lymphocytes Absolute Auto 2.5 X10*3/uL (1.2-4.9); Mean Corpuscular HGB Conc 33.9 g/dl (31.0-35.0); Mean Corpuscular Hemoglobin 28.8 pg (27.0-33.0); Mean Corpuscular Volume 84.9 fL (80.0-98.0); NRBC Abs Auto 0.000 X10*3/uL (0.0-0.012); NRBC Pct Auto 0.0 /100WBC (0.0-0.2); Platelet Count 301 X10*3/uL (160-400); Red Blood Count 4.58 X10*6/uL (4.20-5.50); White Blood Count 9.5 X10*3/uL (4.8-10.8)
[2025-01-20] MEDS: Hydrocortisone Sod Succ/PF 100 MG VIAL 300 MG IVPUSH (13:24)
[2025-01-20] MEDS: diazePAM 10 MG/2 ML CARTRIDGE 2.5 MG IVPUSH (13:25)
[2025-01-20 13:35] LABS: Alanine Aminotransferase 21 U/L (0-31); Albumin Level 4.4 g/dL (3.5-5.0); Alkaline Phosphatase 79 U/L (39-117); Anion Gap 12 (12-20); Aspartate Amino Transferase 22 U/L (5-31); Blood Urea Nitrogen 9 mg/dL (9-16); Calcium 9.9 mg/dL (8.4-10.2); Carbon Dioxide 23 mmol/L (22-29); Chloride 108 mmol/L (96-108); Creatinine Clr Calc Pharmacy 142.4; Estimated Glomerular Filt Rate > 60; Magnesium 1.6 mg/dL (1.6-2.6); Potassium 3.7 mmol/L (3.3-5.1); Sodium 139 mmol/L (135-145); Total Protein 7.3 g/dL (6.5-8.0)
[2025-01-20 14:32] LABS: Free T4 (Free Thyroxine) 3.11 ng/dL (0.71-1.85)
--- NOTE | 2025-01-20 15:47 | PC.NURSE ---
Addendum entered by Arely Day RN 01/20/25 16:25: [facility] arrive for transportation. RN report given and opportunity for questions provided. Care of Pt relinquished to [facility]. Original Note: Call place to [facility] ([phone]) for RN to manager metrology report. Spoke with YOLANDA Cruz; RN report completed. Nancy given opportunity for questions and all questions answered to satisfaction. 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
--- OUTSIDE RECORDS SUMMARY | 2025-01-20 16:25 | XMS_ITS | Encounter Summary ---
Author Organization [facility] Address [address] [address] Phone Care Team Providers Care Navy Material Inspector Name Role Phone Pcp, Not Required Primary Care Provider Unavaila ble Encounter Details Date Type Department Care Team (Late st Contact Info) Description 11/22/2023 Procedure Pass [facility], Ct Scan - [address] [address] Social History Tobacco Use Types Packs/Day Years [...] 10:32 PM EDT Franchesca Parikh RN * [place] Suicide Severity Rating Scale (Screener/Recent Self-Report) Question [...] Description 01/26/2025 11:00 AM EST Office Visit [address] [place] [address] Nikita Mireles PA-C [address] [place] [address] [place] [address] Karyna Aguirre, PT [address] [place] [address] 02/03/2025 2:30 PM EST Office Visit [address] [place] [address] Nikita Mireles PA-C [address] [place] [address] [place] [address] Karyna Aguirre, PT 8 [place] [address] 02/10/2025 10:00 AM EST Office Visit [address] [place] [address] Nikita Mireles PA-C [address] [place] [address] [place] [address] Karyna Aguirre, PT 8 [place] [address] 02/10/2025 2:40 PM EST Office Visit [facility] [address] [place] [address] Nikita Mireles PA-C [address] [place] [address] [place] [address] 02/12/2025 11:30 AM EST Office Visit [address] [place] [address] Nikita Mireles PA-C [address] [place] [address] [place] [address] Karyna Aguirre, PT 8 [place] [address] 02/17/2025 10:00 AM EST Office Visit [address] [place] [address] Nikita Mireles PA-C [address] [place] [address] [place] [address] Karyna Aguirre, PT 8 [place] [address] 02/19/2025 1:00 PM EST Office Visit [facility] [address] [place] [address] Nikita Mireles PA-C [address] [place] [address] [place] [address] Karyna Aguirre, PT 8 [place] [address] 02/22/2025 10:00 AM EST Office Visit [facility] [address] [place] [address] Nikita Mireles PA-C [address] [place] [address] [place] [address] Karyna Aguirre, PT 8 [place] [address] 02/24/2025 10:45 AM EST Office Visit [facility] [address] [place] [address] Nikita Mireles PA-C [address] [place] [address] [place] [address] Karyna Aguirre, PT 8 [place] [address] documented as of this encounter Visit Diagnoses Not on filedocumented in this encounter Additional Health Concerns Infection Onset Date Last Indicated Resolved Time CoV-Risk 06/18/2024 06/18/2024 06/29/2024 1:23 AM EDT documented as of this encounter Care Teams Navy Material Inspector Relationship Specialty Start Date End Date Pcp, Not Required [address] [place] [phone] PCP - General 11/09/15 documented as of this encounter Additional Source Comments The information contained in this document represents components of the legal health record. It is not the complete legal health record.[facility]
--- OUTSIDE RECORDS SUMMARY | 2025-01-20 16:25 | XMS_ITS | Encounter Summary ---
Author Organization [facility] Address [address] [facility] [address] [place] [address] Phone Care Team Providers Care Rehabilitation Caseworker Name Role Phone Pcp, Not Required Primary Care Provider Unavaila ble Encounter Details Date Type Department Care Team (Late st Contact Info) Description 08/08/2024 Procedure Pass [facility], Ct Scan - [address] [address] Social History Tobacco Use Types Packs/Day Years [...] 10:51 PM EDT Dallin Pretty RN * [place] Suicide Severity Rating Scale (Screener/Recent Self-Report) Question [...] Description 01/26/2025 11:00 AM EST Office Visit [facility] [address] [place] [address] Nikita Mireles PA-C [address] [place] [address] [place] [address] Karyna Aguirre, PT 8 [place] [address] 02/03/2025 2:30 PM EST Office Visit [facility] [address] [place] [address] Nikita Mireles PA-C [address] [place] [address] [place] [address] Karyna Aguirre, PT 8 [place] [address] 02/10/2025 10:00 AM EST Office Visit [address] [place] [address] Nikita Mireles PA-C [address] [place] [address] [place] [address] Karyna Aguirre, PT 8 [place] [address] 02/10/2025 2:40 PM EST Office Visit [facility] Medicine [address] [place] [address] Nikita Mireles PA-C [address] [place] [address] [place] [address] 02/12/2025 11:30 AM EST Office Visit [address] [place] [address] Nikita Mireles PA-C [address] [place] [address] [place] [address] Karyna Aguirre, PT 8 [place] [address] 02/17/2025 10:00 AM EST Office Visit [address] [place] [address] Nikita Mireles PA-C [address] [place] [address] [place] [address] Karyna Aguirre, PT 8 [place] [address] 02/19/2025 1:00 PM EST Office Visit [address] [place] [address] Nikita Mireles PA-C [address] [place] [address] Karyna Aguirre, PT 8 [place] [address] 02/22/2025 10:00 AM EST Office Visit [facility] [address] [place] [address] Nikita Mireles PA-C [address] [place] [address] [place] [address] Karyna Aguirre, PT 8 [place] [address] 02/24/2025 10:45 AM EST Office Visit [facility] [address] [place] [address] Nikita Mireles PA-C [address] [place] [address] [place] [address] Karyna Aguirre, PT 8 [place] [address] documented as of this encounter Visit Diagnoses Not on filedocumented in this encounter Care Teams Rehabilitation Caseworker Relationship Specialty Start Date End Date Pcp, Not Required [address] [place] [phone] PCP - General 11/09/15 documented as of this encounter Additional Source Comments The information contained in this document represents components of the legal health record. It is not the complete legal health record.[facility]
--- OUTSIDE RECORDS SUMMARY | 2025-01-20 16:25 | XMS_ITS | Encounter Summary ---
Author Organization [facility] Address [address] [facility] [address] [place] [address] Phone Care Team Providers Care Wire Charger Name Role Phone Pcp, Not Required Primary Care Provider Unavaila ble Encounter Details Date Type Department Care Team ([facility] st Contact Info) Description 11/12/2024 Procedure Pass [place] Admitting Dept - Virtual Department [address] [place] [address] Social History Tobacco Use Types Packs/Day Years [...] Description 01/26/2025 11:00 AM EST Office Visit [facility] [address] [place] [address] Nikita Mireles PA-C [address] [place] [address] [place] [address] Karyna Aguirre, PT 8 [place] [address] 02/03/2025 2:30 PM EST Office Visit [facility] [address] [place] [address] Nikita Mireles PA-C [address] [place] [address] [place] [address] Karyna Aguirre, PT [address] [place] [address] 02/10/2025 10:00 AM EST Office Visit [facility] [address] [place] [address] Nikita Mireles PA-C [address] [place] [address] [place] [address] Karyna Aguirre, PT [address] [place] [address] 02/10/2025 2:40 PM EST Office Visit [facility] Medicine [address] [place] [address] Nikita Mireles PA-C [address] [place] [address] [place] [address] 02/12/2025 11:30 AM EST Office Visit [address] [place] [address] Nikita Mireles PA-C [address] [place] [address] [place] [address] Karyna Aguirre, PT [address] [place] [address] 02/17/2025 10:00 AM EST Office Visit [address] [place] [address] Nikita Mireles PA-C [address] [place] [address] [place] [address] Karyna Aguirre, PT [address] [place] [address] 02/19/2025 1:00 PM EST Office Visit [address] [place] [address] Nikita Mireles PA-C [address] [place] [address] Karyna Aguirre, PT [address] [place] [address] 02/22/2025 10:00 AM EST Office Visit [address] [place] [address] Nikita Mireles PA-C [address] [place] [address] [place] [address] Karyna Aguirre, PT [address] [place] [address] 02/24/2025 10:45 AM EST Office Visit [address] [place] [address] Nikita Mireles PA-C [address] [place] [address] [place] [address] Karyna Aguirre, PT [address] [place] [address] documented as of this encounter Visit Diagnoses Not on filedocumented in this encounter Care Teams Wire Charger Relationship Specialty Start Date End Date Pcp, Not Required [address] [place] [id number] PCP - General 11/09/15 documented as of this encounter Additional Source Comments The information contained in this document represents components of the legal health record. It is not the complete legal health record.[facility]
--- OUTSIDE RECORDS SUMMARY | 2025-01-20 16:25 | XMS_ITS | Clinical Summary ---
Author Organization [facility] Address [address] [place] [phone] Phone Care Team Providers Care Project Buyer Name Role Phone Pcp, Not Required Primary [...] for nausea. 12 tablet 11/18/19 25 Active Additional Information Patient not taking.Reported on 12/30/2024 oxyCODONE 5 MG immediate release tabletIndications: Traumatic complete tear of right rotator cuff, initial encounter Take 1-2 tablets (5-10 mg total) by mouth every 4 (four) hours as needed for pain (specific location in comments) (postop shoulder pain). Partial fill ok 30 tablet 11/24/19 Active Additional Information Patient not taking.Reported on 12/30/2024 oxyCODONE 5 MG immediate release tabletIndications: H/O repair of right rotator cuff Take 1 tablet (5 mg total) by mouth every 4 (four) hours as needed for pain (specific location in comments) (postop shoulder pain). Partial fill ok 24 tablet 12/03/19 Active Additional Information Patient not taking.Reported on 12/30/2024 metoprolol succinate (TOPROL-XL) 25 MG 24 hr tablet TAKE 1/2 OF A TABLET BY MOUTH DAILY 12/26/19 Active Active Problems No known active problems Encounters Date Type Department Care Team Description 01/18/2025 11:30 AM EST Office Visit [address] [place] [address] Nikita Mireles PA-C Clark, Karyna Selby, PT Weakness of right shoulder (Primary Dx) 01/11/2025 10:00 AM EST Office Visit [address] [place] [address] Nikita Mireles PA-C Clark, Karyna Selby, PT Weakness of right shoulder (Primary Dx) 01/06/2025 10:00 AM EDT Office Visit [address] [place] [address] Nikita Mireles PA-C Clark, Karyna Selby, PT Weakness of right shoulder (Primary Dx) 12/30/2024 11:15 AM EDT Office Visit [facility] [address] [place] [address] Jalen Sweeney DO Traumatic complete tear of right rotator cuff, initial encounter (Primary Dx); H/O repair of right rotator cuff 12/30/2024 10:00 AM EDT Office Visit [address] [place] [address] Nikita Mireles PA-C Clark, Karyna Selby, PT Weakness of right shoulder (Primary Dx) 12/28/2024 10:00 AM EDT Office Visit [address] [place] [address] Nikita Mireles PA-C Clark, Karyna Selby, PT Weakness of right shoulder (Primary Dx) 12/23/2024 Telephone [facility] [address] [place] [address] Karyna Aguirre, PT Appointment 12/18/2024 11:30 AM EDT Office Visit [facility] [address] [place] [address] Nikita Mireles PA-C Clark, Karyna Selby, PT Weakness of right shoulder (Primary Dx) 12/16/2024 10:00 AM EDT Office Visit [address] [place] [address] Nikita Mireles PA-C Clark, Karyna Selby, PT Weakness of right shoulder (Primary Dx) 12/09/2024 10:15 AM EDT Office Visit [facility] [address] [place] [address] Nikita Mireles PA-C Bell, Ross, PT Weakness of right shoulder (Primary Dx) 12/04/[address] [place] [address] Karyna Aguirre, PT Upcoming appointment 12/02/2024 9:40 AM EDT Office Visit [facility] [address] [place] [address] Nikita Mireles PA-C H/O repair of right rotator cuff (Primary Dx) 11/26/2024 8:45 AM EDT Office Visit [facility] [address] [place] [address] Nikita Mireles PA-C Bell, Ross, PT Weakness of right shoulder (Primary Dx) 11/17/2024 6:36 PM EDT - 11/17/2024 11:43 PM EDT Emergency [facility] [address] [place] [address] Kale Cabrera MD Discharge Disposition: Home or Self Care 11/13/2024 Telephone [facility] [address] [place] [address] Brandee Vang RN Pain control 11/12/2024 12:48 PM EDT Anesthesia Event OR Admitting Dept - Virtual Department [address] [place] [address] May Camarillo MD 11/12/2024 12:35 PM EDT - 11/12/2024 2:23 PM EDT Surgery OR Admitting Dept - Virtual Department [address] [place] [address] Jalen Sweeney, DO ARTHROSCOPIC REPAIR ROTATOR CUFF SHOULDER 11/12/2024 10:01 AM EDT - 11/12/2024 4:15 PM EDT Hospital Encounter OR Admitting Dept - Virtual Department [address] [place] [address] Jalen Sweeney, Discharge Disposition: Home or Self Care 11/12/2024 Procedure Pass OR Admitting Dept - Virtual Department [address] [place] [address] 11/11/2024 8:00 AM EDT Pre-Admission Testing Pre Procedure Evaluation [address] [place] [address] Jalen Sweeney DO 10/21/2024 8:40 AM EDT Office Visit [facility] [address] [place] [phone] Nikita Mireles PA-C Labral tear of long head of right biceps tendon, sequela (Primary Dx); Traumatic incomplete tear of right rotator cuff, sequela; Preop examination from Last 3 Months Social History Tobacco [...] Description 01/26/2025 11:00 AM EST Office Visit [facility] [address] [place] [address] Nikita Mireles PA-C [address] [place] [address] [place] [address] Karyna Aguirre, PT [address] [place] [address] 02/03/2025 2:30 PM EST Office Visit [facility] [address] [place] [address] Nikita Mireles PA-C [address] [place] [address] [place] [address] Karyna Aguirre, PT 8 [place] [address] 02/10/2025 10:00 AM EST Office Visit [facility] [address] [place] [address] Nikita Mireles PA-C [address] [place] [address] [place] [address] Karyna Aguirre, PT 8 [place] [address] 02/10/2025 2:40 PM EST Office Visit [facility] [address] [place] [address] Nikita Mireles PA-C [address] [place] [address] [place] [address] 02/12/2025 11:30 AM EST Office Visit [address] [place] [address] Nikita Mireles PA-C [address] [place] [address] [place] [address] Karyna Aguirre, PT 8 [place] [address] 02/17/2025 10:00 AM EST Office Visit [address] [place] [address] Nikita Mireles PA-C [address] [place] [address] [place] [address] Karyna Aguirre, PT 8 [place] [address] 02/19/2025 1:00 PM EST Office Visit [address] [place] [address] Nikita Mireles PA-C [address] [place] [address] [place] [address] Karyna Aguirre, PT 8 [place] [address] 02/22/2025 10:00 AM EST Office Visit [facility] [address] [place] [address] Nikita Mireles PA-C [address] [place] [address] [place] [address] Karyna Aguirre, PT 8 [place] [address] 02/24/2025 10:45 AM EST Office Visit [facility] [address] [place] [address] Nikita Mireles PA-C [address] [place] [address] [place] [address] Karyna Aguirre, PT 8 [place] [address] Health Maintenance Due Date Last Done Comments Adult Td,Tdap Booster 1986 DEPRESSION SCREENING 1998 HEPATITIS C SCREENING 2004 HIV ONE-TIME SCREENING (18-6 5 YEARS) 2004 PNEUMOCOCCAL VACCINES (0-49 years) (1 of 2 - PCV) 2005 PAP SMEAR 06/25/2007 INFLUENZA VACCINE (#1) 2024 COVID-19 VACCINE (1 - 2024-2 6 season) 2024 SCREENING FOR DIABETES 11/18/2027 11/17/2024 SMOKING STATUS SCREENING (On ce After 26 Yrs) Completed 12/30/2024 HEPATITIS A VACCINES Aged Out No long er eligible based on patient's age to complete this topic HIB VACCINES Aged Out No longer eligi ble based on patient's age to complete this topic IPV VACCINES Aged Out No longer eligi ble based on patient's age to complete this topic MENINGOCOCCAL VACCINES (ACWY) Aged Out No longer eligible based on patient's age to complete this topic MENINGOCOCCAL VACCINES (B) Aged Out N o longer eligible based on patient's age to complete this topic Medical Devices Implanted Type Area Microfilm Machine Operator Device Identifier Shelf Expiration Date Model / Serial / Lot Breast Breast Stephens All-Suture 1.8mm Q-Fix Knotless W/1 Ub Sut Bl - [id number] Implanted:Qty: 1 on 11/12/2024 by Jalen Sweeney DO at [facility] Right: Shoulder [employer] [id number] 07/18/2027 [id number] / / [id number] Stephens All-Suture 2.8mm Q-Fix W/2 Minitape Suture Blue And Cobraid White - [id number] Implanted:Qty: 1 on 11/12/2024 by Jalen Sweeney DO at [facility] Right: Shoulder [employer] 03/20/2027 [id number] / / [id number] Stephens Suture 4.5mm Arthroscopy Reelx Stt Peek Ss Core Knotless Shapr Tip Expandable Bx/5ea - [id number] Implanted:Qty: 1 on 11/12/2024 by Jalen Sweeney DO at [facility] Right: Shoulder [employer] [id number] 07/28/2026 [id number] / / [id number] Stephens Suture 4.5mm Arthroscopy Reelx Stt Peek Ss Core Knotless Shapr Tip Expandable Bx/5ea - [id number] Implanted:Qty: 1 on 11/12/2024 by Jalen Sweeney DO at [facility] Right: Shoulder [employer] [id number] 05/20/2026 [id number] / / [id number] Procedures Procedure Name Priority Date/Time Associated Diagnosis Comments BASIC METABOLIC PANEL (BMP) STAT 11/17/2024 9:54 PM EDT CBC AND DIFFERENTIAL STAT 11/17/2024 9:54 PM EDT URINE SEDIMENT STAT 11/17/2024 9:50 PM EDT URINALYSIS WITH REFLEX TO URINE CULTURE STAT 11/17/2024 9:50 PM EDT URINE CULTURE Routine 11/17/2024 9:50 PM EDT ECG 12-LEAD STAT 11/17/2024 6:50 PM EDT POCT GLUCOSE Routine 11/17/2024 6:37 PM EDT AIRWAY PLACEMENT Routine 11/12/2024 2:40 PM EDT ID SURGICAL ARTHROSCOPY SHOULDER XTNSV DBRDMT 3+ 11/12/2024 12:48 PM EDT Labral tear of long head of right biceps tendon, sequela Traumatic incomplete tear of right rotator cuff, sequela Special Needs 05/19 W/C approval in chart ok to schedule KP3/11 LM to schedule KP ID SHLDR ARTHROSCOP,PART ACROMIOPLAS 11/12/2024 12:48 PM EDT Labral tear of long head of right biceps tendon, sequela Traumatic incomplete tear of right rotator cuff, sequela Special Needs 05/19 W/C approval in chart ok to schedule KP3/11 LM to schedule KP ID ARTHROSCOPY SHOULDER SURGICAL BICEPS TENODESIS 11/12/2024 12:48 PM EDT Labral tear of long head of right biceps tendon, sequela Traumatic incomplete tear of right rotator cuff, sequela Special Needs 05/19 W/C approval in chart ok to schedule KP3/11 LM to schedule KP ID SHLDR ARTHROSCOP,SURG,W/RO TAT CUFF REPR 11/12/2024 12:48 PM EDT Labral tear of long head of right biceps tendon, sequela Traumatic incomplete tear of right rotator cuff, sequela Special Needs 05/19 W/C approval in chart ok to schedule KP3/11 LM to schedule KP ANES BLOOD PATCH PERFORMABLE Routine 11/12/2024 12:25 PM EDT ID ANESTHESIA PERIPHERAL BLOCK PLACEHOLDER Routine 11/12/2024 12:25 PM EDT URINE HCG STAT 11/12/2024 10:19 AM EDT from Last 3 Months Results * CBC and differential (11/17/2024 9:54 PM EDT) WBC 10.34 4.00 - 11.00 K/uL [facility] RBC 4.28 4.00 - 5.20 M/uL [facility] HGB 12.4 12.0 - 16.0 g/dL [facility] HCT 37.2 36.0 - 46.0 % [facility] PLT 335 150 - 450 K/uL [facility] MCV 86.9 80.0 - 100.0 fL [facility] MCH 29.0 27.0 - 31.0 pg [facility] MCHC 33.3 32.0 - 36.0 g/dL [facility] RDW 12.0 11.5 - 14.5 % [facility] MPV 10.7 8.4 - 12.0 fL [facility] NRBC 0.00 0.00 /100 WBCs [facility] ABSOLUTE NRBC 0.00 0.00 K/uL [facility] DIFF METHOD Auto [facility] NEUTS 65.5 48.0 - 76.0 % [facility] LYMPHS 27.9 18.0 - 41.0 % [facility] MONOS 5.8 4.0 - 11.0 % [facility] EOS 0.3 0.0 - 5.0 % [facility] BASOS 0.2 0.0 - 1.5 % [facility] Granulocytes, immature (%) 0.3 0.0 - 0.9 % [facility] ABSOLUTE NEUTS 6.77 1.92 - 7.60 K/uL [facility] ABSOLUTE LYMPHS 2.89 0.72 - 4.10 K/uL [facility] ABSOLUTE MONOS 0.60 0.16 - 1.10 K/uL [facility] ABSOLUTE EOS 0.03 0.00 - 0.50 K/uL [facility] ABSOLUTE BASOS 0.02 0.00 - 0.15 K/uL [facility] Granulocytes, immature 0.03 0.00 - 0.09 K/uL [facility] Blood 11/17/2024 9:54 PM EDT 11/17/2024 9:57 PM EDT us Kale Cabrera MD LAB BLOOD BKR CLEO HAY Final Result [address] [address] * Basic metabolic panel (11/17/2024 9:54 PM EDT) SODIUM 141 133 - 146 mmol/L [facility] CHLORIDE 106 96 - 108 mmol/L [facility] POTASSIUM 4.0 3.3 - 5.1 mmol/L [facility] CO2 23 21 - 35 mmol/L [facility] BUN 8 6 - 19 mg/dL [facility] CREATININE 0.50 0.5 - 1.5 mg/dL [facility] GLUCOSE 90 70 - 99 mg/dL [facility] CALCIUM 9.6 8.4 - 10.3 mg/dL [facility] EGFR >120 >59 mL/min/1.7 3m2 [facility] Comment:Estimated glomerular filtration rate calculated using the CKD-EPI refit equation. ANION GAP 16 10 - 20 mmol/L [facility] Blood 11/17/2024 9:54 PM EDT 11/17/2024 9:57 PM EDT Kale Cabrera MD LAB BLOOD BKR CLEO HAY Final Result [address] [address] * (ABNORMAL) Urinalysis w/reflex Urine Culture (11/17/2024 9:50 PM EDT) COLOR Yellow Yellow [facility] CLARITY HAZY [facility] GLUCOSE Negative Negative [facility] BILI Negative Negative [facility] KETONES 1+(A) Negative [facility] SPECIFIC GRAVITY 1.015 1.005 - 1.030 [facility] BLOOD Trace(A) Negative [facility] PH 6.5 5.0 - 8.0 [facility] Protein-UA Negative Negative [facility] NITRITE Negative Negative [facility] Leukocyte esterase, ur 1+(A) Negative [facility] Urine (Urine) 11/17/2024 9:5 0 PM EDT 11/17/2024 10:11 PM EDT us Kale Cabrera MD LAB URINE ORDERABL ES Final Result [address] [address] * (ABNORMAL) Urine Culture (11/17/2024 9:50 PM EDT) Special Requests None Reflexed from [id number] 11/17/2024 10:31 PM EDT [facility] Urine Culture >100,000 colony forming units per mL MIXED JOSELINE (3 OR MORE COLONY TYPES) Culture indicates contamination . Please resubmit if necessary.(A) 11/19/2024 7:47 AM EDT [facility] Urine 11/17/2024 9:50 PM EDT 11/17/2024 10:11 PM EDT us Kale Cabrera MD LAB MICROBIOLOGY C ULTURE ORDERABLES Final Result Performing Organization Address [facility]/ZIP Co de Phone Number [address] [address] * (ABNORMAL) Urine sediment (11/17/2024 9:50 PM EDT) WBC 11-20(A) NONE SEEN /hpf [facility] RBC 3-5(A) NONE SEEN /hpf [facility] URINE EPITHELIAL 21-49(A) NONE SEEN [facility] MUCUS 3+(A) NONE SEEN /hpf [facility] BACTERIA 2+(A) NONE SEEN /hpf [facility] 11/17/2024 9:50 PM EDT 11/17/2024 10:11 PM EDT us Kale Cabrera MD LAB URINE ORDERABL ES Final Result Performing Organization Address City/[facility]/ZIP Co de Phone Number [address] [address] * ECG 12-LEAD (11/17/2024 6:50 PM EDT) Ventricular Rate EKG/MIN 113 BPM [facility] Atrial Rate 113 BPM [facility] ID Interval 116 ms [facility] QRS Duration 76 ms [facility] QT Interval 328 ms [facility] QTC Interval 449 ms [facility] P [place] 37 degrees [facility] R Wave [place] 53 degrees [facility] T Wave [place] 41 degrees [facility] 11/17/2024 6:50 PM EDT 11/19/2024 9:18 AM EDT Narrative [facility] - 11/19/2024 9:18 AM EDT Sinus tachycardia Otherwise normal ECG When compared with ECG of 08-Oct-2024 16:39, No significant change was found Confirmed by Phong Mendez ([id number]) on 11/19/2024 9:18:11 AM us Ezequiel Mathew MD ECG ORDERABLES Final Result [facility] * (ABNORMAL) POCT Glucose (11/17/2024 6:37 PM EDT) Glucose, POCT 160(H) 70 - 100 mg/dL [facility] 11/17/2024 6:37 PM EDT 11/18/2024 2:22 AM EDT us Kale Cabrera MD POINT OF CARE TEST ORDERABLES Final Result [address] [address] * ANES ETT DOUBLE LUMEN - AIRWAY LDA (11/12/2024 2:40 PM EDT) Narrative Dennise Rodriguez CRNA - 11/12/2024 2:40 PM EDT Dennise Rodriguez CRNA 11/12/2024 2:41 PM Airway Placement Procedure Note: Procedure performed by: fellow/resident/FINGER BUFFS ASSEMBLER Anesthesiologist: May Camarillo MD Fellow/Resident/FINGER BUFFS ASSEMBLER: Dennise Rodriguez CRNA Airway procedure initiated at:11/12/2024 2:40 PM and ended at. Personal Protective Equipment: Mask: surgical mask Eye Protection: eye shield Gloves: double gloves Gown: no gown Mask Ventilation: Quality: not attempted Airway Placement: Technique: LMA Rapid sequence induction: no LMA Insertion: LMA size: 3 LMA placement attempts: 1. Outcomes: Evidence of dental injury? no Complications observed? no us May Camarillo MD ID ANESTHESIA Final Resu lt * ID ANESTHESIA PERIPHERAL BLOCK PLACEHOLDER, ANES BLOOD PATCH PERFORMABLE (11/12/2024 12:25 PM EDT) Narrative Dennise Rodriguez CRNA - 11/12/2024 12:25 PM EDT Dennise Rodriguez CRNA 11/12/2024 12:47 PM Peripheral Block Placement Procedure Note: Start Time: 11/12/2024 12:25 PM Stop Time:11/12/2024 12:35 PM Reason for block: surgeon request and post op pain managment Block performed by: fellow/resident/FINGER BUFFS ASSEMBLER Anesthesiologist: May Camarillo MD Fellow/Resident/FINGER BUFFS ASSEMBLER: Dennise Rodriguez CRNA [place] Protocol Performed: consent obtained, patient identified with [...] interscalene 5 ml intercostobrachial nerve us Dennise Karyna Rodriguez FINGER BUFFS ASSEMBLER ID ANESTHESIA F inal Result * HCG, urine (11/12/2024 10:19 AM EDT) URINE TEST Negative Negative [facility] Urine (Urine) 11/12/2024 10: 19 AM EDT 11/12/2024 10:22 AM EDT us Jalen Sweeney DO LAB URINE ORDERABLES Final Result Performing Organization Address City/State/[facility] Co de Phone Number [facility] [address] [place] [address] from Last 3 Months Insurance [facility] [place] [facility] [place] [facility] [place] [address] [facility] Care Teams Project Buyer Relationship Specialty Start Date End Date Pcp, Not Required [address] [place] [address] PCP - General 11/09/15 Additional Source Comments The information contained in this document represents components of the legal health record. It is not the complete legal health record.[facility]
--- OUTSIDE RECORDS SUMMARY | 2025-01-20 16:25 | XMS_ITS | Encounter Summary ---
Author Organization [facility] Address [address] [address] Phone Care Team Providers Care Perforator Typist Name Role Phone Pcp, Not Required Primary Care Provider Unavaila ble Encounter Details Date Type Department Care Team (Late st Contact Info) Description 02/22/2024 Procedure Pass [facility], Ct Scan - [address] [address] Social History Tobacco Use Types Packs/Day Years [...] 02/22/2024 1:48 AM Teresa Hernandez RN * [place] Suicide Severity Rating Scale (Screener/Recent Self-Report) Question [...] Description 01/26/2025 11:00 AM EST Office Visit [facility] [address] [place] [address] Nikita Mireles PA-C [address] [place] [address] [place] [address] [email or web address] Karyna Aguirre, PT [address] [place] [address] 02/03/2025 2:30 PM EST Office Visit [facility] [address] [place] [address] Nikita Mireles PA-C [address] [place] [address] [place] [address] [email or web address] Karyna Aguirre, PT [address] [place] [address] 02/10/2025 10:00 AM EST Office Visit [address] [place] [address] Nikita Mireles PA-C [address] [place] [address] [place] [address] [email or web address] Karyna Aguirre, PT [address] [place] [address] 02/10/2025 2:40 PM EST Office Visit [facility] [address] [place] [address] Nikita Mireles PA-C [address] [place] [address] [place] [address] [email or web address] 02/12/2025 11:30 AM EST Office Visit [address] [place] [address] Nikita Mireles PA-C [address] [place] [address] [place] [address] [email or web address] Karyna Aguirre, PT [address] [place] [address] [email or web address] 02/17/2025 10:00 AM EST Office Visit [address] [place] [address] Nikita Mireles PA-C [address] [place] [address] [place] [address] [email or web address] Karyna Aguirre, PT [address] [place] [address] [email or web address] 02/19/2025 1:00 PM EST Office Visit [address] [place] [address] Nikita Mireles PA-C [address] [place] [address] [place] [address] [email or web address] Karyna Aguirre, PT [address] [place] [address] 02/22/2025 10:00 AM EST Office Visit [address] [place] [address] Nikita Mireles PA-C [address] [place] [address] [place] [address] [email or web address] Karyna Aguirre, PT [address] [place] [address] [email or web address] 02/24/2025 10:45 AM EST Office Visit [address] [place] [address] Nikita Mireles PA-C [address] [place] [address] [place] [address] [email or web address] Karyna Aguirre, PT [address] [place] [address] documented as of this encounter Visit Diagnoses Not on filedocumented in this encounter Additional Health Concerns Infection Onset Date Last Indicated Resolved Time CoV-Risk 06/18/2024 06/18/2024 06/29/2024 1:23 AM EDT documented as of this encounter Care Teams Perforator Typist Relationship Specialty Start Date End Date Pcp, Not Required [address] [place] [id number] PCP - General 11/09/15 documented as of this encounter Additional Source Comments The information contained in this document represents components of the legal health record. It is not the complete legal health record.[facility]
--- OUTSIDE RECORDS SUMMARY | 2025-01-20 16:25 | XMS_ITS | Encounter Summary ---
Author Organization [facility] Address [address] [place] [phone] Phone Care Team Providers Care Sales Representative Adding Machines Name Role Phone Pcp, Not Required Primary Care Provider Unavaila ble Encounter Details Date Type Department Care Team (Late st Contact Info) Description 09/17/2023 Procedure Pass [facility], [address] [place] [address] Social History Tobacco Use Types Packs/Day Years [...] Description 01/26/2025 11:00 AM EST Office Visit [facility] [address] [place] [address] Nikita Mireles PA-C [address] [place] [address] [place] [address] Karyna Aguirre, PT 8 [place] [address] 02/03/2025 2:30 PM EST Office Visit [facility] [address] [place] [address] Nikita Mireles PA-C [address] [place] [address] [place] [address] Karyna Aguirre, PT 8 [place] [address] 02/10/2025 10:00 AM EST Office Visit [facility] [address] [place] [address] Nikita Mireles PA-C [address] [place] [address] [place] [address] Karyna Aguirre, PT 8 [place] [address] 02/10/2025 2:40 PM EST Office Visit [facility] Medicine [address] [place] [address] Nikita Mireles PA-C [address] [place] [address] [place] [address] 02/12/2025 11:30 AM EST Office Visit [facility] [address] [place] [address] Nikita Mireles PA-C [address] [place] [address] [place] [address] Karyna Aguirre, PT 8 [place] [address] 02/17/2025 10:00 AM EST Office Visit [facility] 8 [place] [address] Nikita Mireles PA-C [address] [place] [address] [place] [address] Karyna Aguirre, PT 8 [place] [address] 02/19/2025 1:00 PM EST Office Visit [address] [place] [address] Nikita Mireles PA-C [address] [place] [address] [place] [address] Karyna Agurire, PT 8 [place] [address] 02/22/2025 10:00 AM EST Office Visit [address] [place] [address] Nikita Mireles PA-C [address] [place] [address] [place] [address] Karyna Aguirre, PT 8 [place] [address] 02/24/2025 10:45 AM EST Office Visit [address] [place] [address] Nikita Mireles PA-C [address] [place] [address] [place] [address] [email or web address] Karyna Aguirre, PT 8 [place] [address] [email or web address] documented as of this encounter Visit Diagnoses Not on filedocumented in this encounter Additional Health Concerns Infection Onset Date Last Indicated Resolved Time CoV-Risk 06/18/2024 06/18/2024 06/29/2024 1:23 AM EDT documented as of this encounter Care Teams Sales Representative Adding Machines Relationship Specialty Start Date End Date Pcp, Not Required [address] [place] [id number] PCP - General 11/09/15 documented as of this encounter Additional Source Comments The information contained in this document represents components of the legal health record. It is not the complete legal health record.[facility]
--- OUTSIDE RECORDS SUMMARY | 2025-01-20 16:25 | XMS_ITS | Encounter Summary ---
Author Organization [facility] Address [address] [facility] [address] [place] [phone] Phone Care Team Providers Care Accounting Instructor Name Role Phone Pcp, Not Required Primary Care Provider Unavaila ble Encounter Details Date Type Department Care Team (Late st Contact Info) Description 07/12/2024 Procedure Pass [facility], Ct Scan - [address] [address] Social History Tobacco Use Types Packs/Day Years [...] 7:11 AM EDT Amor Gross RN * [place] Suicide Severity Rating Scale (Screener/Recent Self-Report) Question [...] Description 01/26/2025 11:00 AM EST Office Visit [facility] Services [address] [place] [address] Nikita Mireles PA-C [address] [place] [address] [place] [address] Karyna Aguirre, PT 8 [place] [address] 02/03/2025 2:30 PM EST Office Visit [facility] [address] [place] [address] Nikita Mireles PA-C [address] [place] [address] [place] [address] Karyna Aguirre, PT 8 [place] [address] 02/10/2025 10:00 AM EST Office Visit [address] [place] [address] Nikita Mireles PA-C [address] [place] [address] [place] [address] Karyna Aguirre, PT 8 [place] [address] 02/10/2025 2:40 PM EST Office Visit [facility] Orthopedics & Sports Medicine [address] [place] [address] Nikita Mireles PA-C [address] [place] [address] [place] [address] 02/12/2025 11:30 AM EST Office Visit [address] [place] [address] Nikita Mireles PA-C [address] [place] [address] [place] [address] Karyna Aguirre, PT 8 [place] [address] 02/17/2025 10:00 AM EST Office Visit [address] [place] [address] Nikita Mireles PA-C [address] [place] [address] [place] [address] Karyna Aguirre, PT 8 [place] [address] 02/19/2025 1:00 PM EST Office Visit [address] [place] [address] Nikita Mireles PA-C [address] [place] [address] Karyna Aguirre, PT 8 [place] [address] 02/22/2025 10:00 AM EST Office Visit [facility] [address] [place] [address] Nikita Mireles PA-C [address] [place] [address] [place] [address] Karyna Aguirre, PT 8 [place] [address] 02/24/2025 10:45 AM EST Office Visit [facility] [address] [place] [address] Nikita Mireles PA-C [address] [place] [address] [place] [address] Karyna Aguirre, PT 8 [place] [address] documented as of this encounter Visit Diagnoses Not on filedocumented in this encounter Care Teams Accounting Instructor Relationship Specialty Start Date End Date Pcp, Not Required [address] [place] [phone] PCP - General 11/09/15 documented as of this encounter Additional Source Comments The information contained in this document represents components of the legal health record. It is not the complete legal health record.[facility]
--- OUTSIDE RECORDS SUMMARY | 2025-01-20 16:25 | XMS_ITS | Encounter Summary ---
Author Organization [facility] Address [address] [place] [address] Phone Care Team Providers Care District Representative Name Role Phone Pcp, Not Required Primary Care Provider Unavaila ble Encounter Details Date Type Department Care Team (Late st Contact Info) Description 10/08/2024 Procedure Pass [facility], Ct Scan - [address] [address] Social History Tobacco Use Types Packs/Day Years [...] 12:28 PM EDT Ana Gonzalez, YOLANDA * [place] Suicide Severity Rating Scale (Screener/Recent Self-Report) Question Answer Date of Assessment Author 1. Wish to be (Past 1 Month) No 025 12:28 PM EDT Ana Gonzalez, YOLANDA 2. Non-Specific Active Suici kori Thoughts (Past 1 Month) No 10/08/2024 12:28 PM EDT Aan Gonzalez , RN 6. Suicidal Behavior (Lifetime) No 12:28 PM EDT Ana Gonzalez, RN documented as of this encounter Plan of Treatment Upcoming Encounters Date Type Department Care Team (Late st Contact Info) Description 01/26/2025 11:00 AM EST Office Visit [facility] Services [address] [place] [address] Nikita Mireles PA-C [address] [place] [address] [place] [address] Karyna Aguirre, PT 8 [place] [address] 02/03/2025 2:30 PM EST Office Visit [facility] [address] [place] [address] Nikita Mireles PA-C [address] [place] [address] [place] [address] Karyna Aguirre, PT 8 [place] [address] 02/10/2025 10:00 AM EST Office Visit [address] [address] Nikita Mireles PA-C [address] [place] [address] [place] [address] Karyna Aguirre, PT 8 [place] [address] 02/10/2025 2:40 PM EST Office Visit [facility] Orthopedics & Sports Medicine [address] [place] [address] Nikita Mireles PA-C [address] [place] [address] [place] [address] 02/12/2025 11:30 AM EST Office Visit [address] [place] [address] Nikita Mireles PA-C [address] [place] [address] [place] [address] Karyna Aguirre, PT 8 [place] [address] 02/17/2025 10:00 AM EST Office Visit [facility] [address] [place] [address] Nikita Mireles PA-C [address] [place] [address] [place] [address] Karyna Aguirre, PT 8 [place] [address] [email or web address] 02/19/2025 1:00 PM EST Office Visit [address] [place] [address] Nikita Mireles PA-C [address] [place] [address] [place] [address] Karyna Aguirre, PT 8 [place] [address] [email or web address] 02/22/2025 10:00 AM EST Office Visit [facility] [address] [place] [address] Nikita Mireles PA-C [address] [place] [address] [place] [address] Karyna Aguirre, PT 8 [place] [address] 02/24/2025 10:45 AM EST Office Visit [address] [place] [address] Nikita Mireles PA-C [address] [place] [address] [place] [address] Karyna Aguirre, PT 8 [place] [address] documented as of this encounter Visit Diagnoses Not on filedocumented in this encounter Care Teams District Representative Relationship Specialty Start Date End Date Pcp, Not Required [address] [place] [address] PCP - General 11/09/15 documented as of this encounter Additional Source Comments The information contained in this document represents components of the legal health record. It is not the complete legal health record.[facility]
== END 2025-01-20 16:25 | disposition short-term general hospital (02) ==
PROVIDERS: Physician Assistant Medical; Emergency Provider Emergency Medicine
DX: E05.91 Thyrotoxicosis, unspecified with thyrotoxic crisis or storm (principal); Z87.442 Personal history of urinary calculi; Z79.899 Other long term (current) drug therapy; Z88.8 Allergy status to other drugs, medicaments and biological substances; Z91.041 Radiographic dye allergy status
CPT/HCPCS: 36415; 74018; 76775; 80053; 83735; 84439; 84443; 85025; 93005; 96361; 96374; 96375; 99285; J0616; J1720; J1885; J2270; J3360

== ENCOUNTER → 2025-01-20 12:52 | Outpatient (BNV) | payer OTHER, SELFPAY | PROVIDERS: Emergency Provider Emergency Medicine; Visit Provider Internal Medicine Cardiovascular Disease | DX: R00.0 Tachycardia, unspecified (principal) | CPT/HCPCS: 93010 ==

== ENCOUNTER → 2025-01-20 13:21 | Outpatient (BNV) | payer OTHER, SELFPAY | PROVIDERS: Emergency Provider Emergency Medicine; Visit Provider Radiology Diagnostic Radiology | DX: R10.A1 Flank pain, right side (principal) | CPT/HCPCS: 74018 ==

== ENCOUNTER 2025-02-10 13:44 | Outpatient (AMB) | payer OTHER, SELFPAY ==
--- OUTSIDE RECORDS SUMMARY | 2025-01-31 21:42 | XMS_ITS | Encounter Summary ---
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 Vault Cashier Name Role Phone [facility] Primary Care Provider [phone] Reason for Referral * Consultation (Routine) - Authorized Specialty Diagnoses / Procedures Referred By Nancy allison Referred To Contact Urology Diagnoses Nephrolithiasis Fiona Squires MD [address] [place] [phone] Phone: tel: fax: Urology at [address] [facility] [address] [facility] 3rd [place] [address] Phone: tel: Referral ID Status Reason Start Date Expiration Date Visits Requested Visits Authorized [id number] Authorized Specialty Services Required 02/08/2025 02/08/2026 10 10 * Consultation (Routine) - New Request Specialty Diagnoses / Procedures Referred By Contac t Referred To Contact Endocrinology, Diabetes & Metabolism / Oncology Diagnoses Graves disease Andi Hassan MD [address] [place] [phone] Phone: tel: fax: [facility] [address] [address] Phone: tel: fax: Referral ID Status Reason Start Date Expiration Date Visits Requested Visits Authorized [id number] New Request Specialty Services Required 5 02/05/2026 1 1 Reason for Visit * Reason Comments Palpitations Arrived requesting m edication refill (unsure of name). Recently hospitalized for 8 days at [facility] for kidney stones and large mass in chest. Script sent to [place]. C/o nausea and palpitations. Medication Refill * Auth/Cert Specialty Diagnoses / Procedures Referred By Nancy t Referred To Contact Emergency Medicine Diagnoses Graves disease [facility] Emergency Department [address] [place] [address] Phone: tel: Referral ID Status Reason Start Date Expiration Date Visits Re quested Visits Authorized [id number] Encounter Details Date Type Department Care Team (Latest Contact Info) Description 01/31/2025 9:42 PM EST - 02/08/2025 7:39 PM EST Hospital Encounter EP [address] [place] [address] Marie Woodson MD [address] [place] [phone] Dontae Rodriguez MD [address] [place] [phone] Gwen Morales MD [address] [place] [phone] Uriel Kaplan MD [address] [place] [phone] Fiona Squires MD [address] [place] [phone] Manjinder Maguire MD [address] [place] [phone] Graves disease (Primary Dx); Hyperthyroidism; Nephrolithiasis; Acute cystitis with hematuria; Mediastinal mass; Malnutrition, unspecified type (HC Code); Right nephrolithiasis; 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 Never 02/02/2025 Average Number of Drinks Not on file 025 Frequency of Binge Drinking Not on file 01/10 Hunger Vital Sign Answer Date Recorded Within the past 12 months, y ou worried that your food would run out before you got the money to buy more. Never true 02/03/20 Within the past 12 months, t he food you bought just didn't last and you didn't have money to get more. Never true 02/02/2025 PRAPARE - Transportation Answer Date Re corded In the past 12 months, has l ack of transportation kept you from medical appointments or from getting medications? No 01/10 In the past 12 months, has l ack of transportation kept you from meetings, work, or from getting things needed for daily living? No 02/02/2025 [facility] Utilities Answer Date Recorded In the past 12 months has e electric, gas, oil, or water company threatened to shut off services in your home? No 02/02/2025 Housing Stability Answer Date Recorded What is your living situation today? I have a [facility] place to live 02/02/2025 Housing Stability Not on file 02/02/2025 Interpersonal Safety Answer Date Record ed Is there anyone in your life that is hurting or threatening you in anyway? 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 Not on file Not on file documented as of this encounter Last Filed Vital Signs Vital Sign Reading Time Taken Comments Blood Pressure 158/84 02/08/2025 4:10 PM EST Pulse 79 02/08/2025 4:10 PM EST Temperature 37.3 C (99.1 F) 02/08/2025 4:10 PM EST Respiratory Rate 18 02/08/2025 4:10 PM EST Oxygen Saturation 100% 02/08/2025 4:10 PM EST Inhaled Oxygen Concentration - - Weight 73 kg (160 lb 15 oz) 02/08/2025 8:[address] Height 167.6 cm (5' 6 ) 02/02/2025 4:00 PM EST Body Mass Index 25.98 02/02/2025 4:00 PM EST documented in this encounter Functional Status documented as of this encounter Discharge Summaries * Emanuel Albarado MD - 02/08/2025 3:02 PM EST Images from the original note were not included. [facility] [place] Summary Patient Data: Patient Name: Paul Estrella Admit date: 01/31/2025 Age: 39 y.o. Discharge date: 02/08/2025 : 1985 Discharge Attending Physician: Fiona Squires MD Discharged Condition: good PCP: [facility] (Inactive) Disposition: Home Principal Diagnosis: Graves Disease, Thyroid Storm Nephrolithiasis s/p R ureteral stent Comorbidities Comorbidities present on admission: PMH of COVID Secondary diagnoses occurring during hospitalization: Hypomagnesemia Post Discharge Follow Up Items: Issues to be Addressed Post Discharge: Follow up with endocrinology for titration of hyperthyroid meds Follow up with PCP for LFT/TFT monitoring and pain management, 1-2 weeks post discharge Follow up with urology for definitive stone management Pending Labs and Tests: None Follow-up Information: [facility] Np4 [facility] [address] [address] Urology at [address] [facility] [address] [facility] 3rd Floor [facility] [address] Future Appointments Date Time Provider Department Center 02/09/2025 1:15 PM [facility] US[facility] [address] [facility] Hospital Course: Paul Estrella is a 39 y.o. female with hx anxiety, hyperthyroid 2020 (not on tx) c/b recent dx Graves disease w associated anterior mediastinal mass, R>L nephrolithiasis s/p recent OSH admission for thyroid storm p/f worsening Graves and R flank pain. She also presented iso being unable to get PTU med for hyperthyroidism. Tried multiple outpt pharmacies, unable to obtain PTU. Patient told it would come from an out of state pharmacy and would not be here for 5-7 days. Presented to [facility] ED 01/31/2025 accompanied by hoping for improved symptomatic mgmt, appropriate medication dispense, and further workup of her mass (4mm pulm nodules and R sided ovarian cyst) In the ED 01/31, tremulous, could not walk w/o assistance, diarrhea, severe 10/10 anxiety, does notwant to take xanax for acute on chronic anxiety iso Graves (worried about addictive potential, oversedation and inability to care for 3yo child at home). R flank pain 10/10 improving to 4/10 after pain medication. Denied fever, chills, hematuria, dysuria. Seen by Endo, rec continuation of PTU 100mgTID given previous response. 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 Renal ultrasound notable for dilation of proximal lower pole ureter (partially duplicated collecting system), bilateral non-obstructing stones. Urology consulted now s/p cystoscopy and R ureteral stent placement. #Graves disease Initially treated at OSH with methimazole up to 30 mg TID. Later transitioned to PTU as free T4 levels remained >7 with methimazole but unable to get PTU from pharmacy as mentioned above. Per endorecs, she was initially started on PTU with improvement of her hyperthyroid related symptoms and her TFTs continued to downtrend (last checked on 02/05- fT4 2.95, T3 303). Due to rising LFTs she was transitioned to methimazole and her dose on discharge was 15mg bid. She was also started on propanolol with the final dose being propanolol 20mg TID titrated based on HR. She was referred to endocrinology for outpatient follow up (pt prefers at [place] despite being from [place]). She was also ordered for TFT and LFT check in the outpatient setting via [facility], to be obtained about 2 weeks post discharge. #R nephrolithiasis s/p ureteral stent, now with stent colic #Duplicated R collecting system, partial 2 stones in the right UPJ w/theoretical intermittent obstruction on renal u/s. S/p right ureteral stent 02/02. Course was largely complicated by ongoing stent colic despite diverse pain management, requiring PO and IV opiates, PO and IV NSAIDs, and PO benzodiazepines. Ultimately she achieved adequate pain control with the below regimen, which was prescribed on discharge. She was referred to urology for f/u outpatient for definitive stone management - Pain regimen on discharge - PO Motrin 800 mg q6h PRN - Tylenol 1000 mg q6h PRN - xylocaine jelly periurethrally TID - oxybutynin 5 mg TID - diazepam 2mg BID PRN for pain or anxiety - oxy 5mg q4h PRN for breakthrough pain - oxy 10mg q4h PRN for breakthrough pain Inpatient Consultants and summary of recommendations: urology, endocrine as above Pertinent Procedures or Surgeries: R ureteral stent as above Data: Pertinent lab findings: Recent Labs Lab 02/06/2553802/07/2543002/08/25411 WBC 4.9 6.7 5.1 HGB 10.9* 11.1* 10.3* HCT 31.80* 32.30* 30.20* PLT 264 292 286 Recent Labs Lab 02/05/25 0611 02/06/2553802/07/25430 NEUTROPHILS 60.1 36.4* 51.1 Recent Labs Lab 02/06/25 0539 02/07/25 0431 02/08/25411 NA 141 141 141 K 4.0 4.1 4.0 CL 105 108* 106 CO2 BUN 9 12 8 CREATININE 0.60 0.58 0.61 GLU 87 107* 96 ANIONGAP 11 9 10 Recent Labs Lab 02/06/2539 02/07/25 04302/08/25411 CALCIUM 9.2 9.6 9.2 MG 2.0 1.7 1.5* PHOS 5.2* 5.0* -- Recent Labs Lab 02/06/2539 11/30/25 0431 12/01/25 0412 ALT 68* 107* 101* AST 39* 87* 69* ALKPHOS 90 91 68 BILITOT 0.4 0.3 0.4 BILIDIR 0.2 0.2 -- No results for input(s): PTT , LABPROT , INR in the last 168 hours. Microbiology: Recent Labs Lab 02/02/25 2136 LABURIN Less than 10,000 CFU/mL. Clinical significance is unlikely for organism(s) present in quantities of less than 10,000 CFU/mL. Imaging: Imaging results last 1 week: No results found. Diet: Diet Regular Nutrition Supplements Mobility: Highest Level of mobility - ACTUAL: Mobility Level 7, Walk 25+ feet, AM PAC - Physical Exam Discharge vital signs: Vitals: 02/08/25 1209 BP: 134/81 Pulse: 74 Resp: 18 Temp: 98.2 ??F (36.8 ??C) Cognitive Status at Discharge: Baseline Alert and Oriented x 3 Physical Exam General: Appears stated age, in NAD HEENT: Normocephalic, atraumatic. EOMI CV: Regular rate and rhythm, S1/S2 present, no appreciable murmurs, rubs, or gallops. Pulm: Non-labored breathing, lungs clear bilaterally anteriorly, no wheezes, crackles, or rhonchi Abd: Bowel sounds present. Mild suprapubic tenderness to deep palpation Ext: Warm and perfused, no LE pitting edema, no clubbing or cyanosis Neuro: A&Ox4. CN II-XII grossly intact. Skin: No rashes, lesions. Psych: Appropriate thought content and speech. History Allergies Allergies Noted Reactions Ceftriaxone 02/02/2025 Hives 6 mo ago at OSH per pt Iodinated Contrast Media 01/31/2025 Hives Confirmed per patient, >1 yr ago PMH PSH Past Medical History[1] Past Surgical History[2] Social History Family History Social History Tobacco Use Smoking status: Never Smokeless tobacco: Not on file Substance Use Topics Alcohol use: Not on file Family History Problem Relation Age of Onset Thyroid cancer Mother Discharge Medications Discharge: Medication List Start Dose Start Date Stop Date Comments Indications of Use acetaminophen 500 mg tablet Commonly known as: TYLENOL Take 2 tablets (1,000 mg total) by mouth every 6 (six) hours as needed for pain. 1,000 mg diazePAM 2 mg tablet Commonly known as: VALIUM Take 1 tablet (2 mg total) by mouth daily as needed (renal stent colic, muscle spasm). 2 mg ibuprofen 800 mg tablet Commonly known as: ADVIL,MOTRIN Take 1 tablet (800 mg total) by mouth every 6 (six) hours as needed for pain. 800 mg lidocaine uro-jet 2 % jelly Commonly known as: XYLOCAINE 11 mLs by Other route 3 (three) times daily. 11 mL methIMAzole 5 mg tablet Commonly known as: TAPAZOLE Take 3 tablets (15 mg total) by mouth 2 (two) times daily. 15 mg metoclopramide HCl 10 mg tablet Commonly known as: REGLAN Take 1 tablet (10 mg total) by mouth every 6 (six) hours as needed for nausea or vomiting for up to10 days. 10 mg oxybutynin 5 mg immediate release tablet Commonly known as: DITROPAN Take 1 tablet (5 mg total) by mouth 3 (three) times daily. 5 mg * oxyCODONE 5 mg Immediate Release tablet Commonly known as: ROXICODONE Take 1 tablet (5 mg total) by mouth every 8 (eight) hours as needed for pain for up to 5 days. 5 mg * oxyCODONE 10 mg Immediate Release tablet Commonly known as: ROXICODONE Take 1 tablet (10 mg total) by mouth every 4 (four) hours as needed for up to 3 days. 10 mg polyethylene glycol 17 gram packet Commonly known as: MIRALAX Take 1 packet (17 g total) by mouth 2 (two) times daily for 5 days. Mix in 8 ounces of water, juice, soda, coffee or tea prior to taking. 17 g senna 8.6 mg tablet Generic drug: senna Take 1 tablet (8.6 mg total) by mouth nightly as needed for constipation. 1 tablet February 09, 2025 tamsulosin 0.4 mg 24 hr capsule Commonly known as: FLOMAX Take 1 capsule (0.4 mg total) by mouth nightly. 0.4 mg * This list has 2 medication(s) that are the same as other medications prescribed for you. Read thedirections carefully, and ask your doctor or other care provider to review them with you. These medications have changed Dose Start Date Stop Date Comments Indications of Use propranoloL 20 mg Immediate Release tablet Commonly known as: INDERAL Take 1 tablet (20 mg total) by mouth every 8 (eight) hours. What changed: medication strength how much to take when to take this 20 mg Continue taking these medications Dose Start Date Stop Date Comments Indications of Use one daily multivitamin tablet Generic drug: multivitamin Take 1 tablet by mouth daily. 1 tablet Stop taking these medications ALPRAZolam 0.25 mg tablet Commonly known as: XANAX propylthiouraciL 50 mg tablet Commonly known as: PTU 35 minutes spent on the discharge of this patient Electronically Signed: Emanuel Albarado MD 02/08/2025 3:02 PM Best Contact Information: [employer] [1] Past Medical History: Diagnosis Date Anxiety Hyperthyroidism Medullary sponge kidney Nephrolithiasis [2] Past Surgical History: Procedure Laterality Date URETERAL STENT PLACEMENT Cosigned by Fiona Squires MD at 02/09/2025 3:32 PM EST Associated attestation - Fiona Squires MD - 02/09/2025 3:32 PM EST Attending Statement I have seen/evaluated the patient on 02/08/2025 and agree with the history, physical exam and plan as documented by Dr. Albarado. 39F with history of Graves disease, bilateral nonobstructing nephrolithiasis, who was admitted for symptomatic hyperthyroidism iso PTU unavailable at outpatient pharmacy, as well as R flank pain iso potentially intermittently obstructing UPJ stone. Due to uptrending LFTs and persistently elevated FT4 despite increasing PTU dose, transitioned to methimazole per Endocrinology guidance with good response. 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 FT4 down to 2.95 on methimazole 15mg BID, and adrenergic symptoms well controlled on propranolol. Repeat outpatient FT4 and LFT prior to [facility] followup appointment scheduled on 02/11. Urology placed R ureteral stent for renal decompression, c/b stent colic treated with multimodal analgesics, tamsulosin, oxybutynin. F/u with Urology outpatient for definitive stone management. Electronically Signed: Fiona Squires MD 02/09/2025 3:24 PM documented in this encounter Discharge Instructions * Discharge Instructions* Emanuel Albarado MD - 02/08/2025 2:07 PM EST Dear Paul Estrella, On behalf of your entire care team, we would like to thank you for entrusting us with your medical needs. It has been our pleasure to provide care for you during your hospitalization. Your care team has created a summary of your visit. Hospitalization: During your hospitalization, you had a primary diagnosis of Graves disease. You were also treated for kidney stones and your in-hospital treatment consisted of antithyroid medications, right ureteralstent placement, and pain medications. Medication Changes: The following new medications or medication changes were made during your hospitalization: Medication: Methimazole Reason for use or change: for Graves disease Medication: Propranolol Reason for use or change: for Graves disease Medication: Tamsulosin Reason for use or change: for kidney stones Medication: Oxybutynin Reason for use or change: for bladder spasm Medication: Ibuprofen Reason for use or change: for pain related to stent colic Outpatient Plan: After your discharge, you will follow-up with: Endocrinology, Primary care doctor (please see your primary care doctor 1-2 weeks following your hospital discharge) You have the following outpatient studies ordered: Labs- Liver Function Tests (LFT) and Free T4, Total T3 Post-Discharge Team Follow-up: No - delete the section Pending Lab Studies: Please ask [facility] ([facility]) for the final results of the following inpatient pending studies: If you have any questions about your hospitalization, or encounter any issues with obtaining your prescriptions, medical equipment, or outpatient studies, please call [phone] or toll-free at [phone] ([phone]). documented in this encounter Medications at Time of Discharge acetaminophen (TYLENOL) 500 mg tablet Take 2 tablets (1,000 mg total) by mouth every 6 (six) hours as needed for pain. 30 tablet 11 02/08/2025 03/25/2025 diazePAM (VALIUM) 2 mg tablet Take 1 tablet (2 mg total) by mouth daily as needed (renal stent colic, muscle spasm). 28 tablet 02/08/2025 03/08/2025 ibuprofen (ADVIL,MOTRIN) 800 mg tablet Take 1 tablet (800 mg total) by mouth every 6 (six) hours as needed for pain. 56 tablet 02/08/2025 02/22/2025 lidocaine uro-jet (XYLOCAINE) 2 % jelly 11 mLs by Other route 3 (three) times daily. 900 mL 1 02/08/2025 methIMAzole (TAPAZOLE) 5 mg tablet Take 3 tablets (15 mg total) by mouth 2 (two) times daily. 180 tablet 02/08/2025 metoclopramide HCl (REGLAN) 10 mg tablet Take 1 tablet (10 mg total) by mouth every 6 (six) hours as needed for nausea or vomiting for up to 10 days. 20 tablet 02/08/2025 02/18/2025 multivitamin (ONE DAILY MULTIVITAMIN) tablet Take 1 tablet by mouth daily. oxybutynin (DITROPAN) 5 mg immediate release tablet Take 1 tablet (5 mg total) by mouth 3 (three) times daily. 90 tablet 02/08/2025 oxyCODONE (ROXICODONE) 10 mg Immediate Release tablet Take 1 tablet (10 mg total) by mouth every 4 (four) hours as needed for up to 3 days. 8 tablet 02/08/2025 02/11/2025 oxyCODONE (ROXICODONE) 5 mg Immediate Release tablet Take 1 tablet (5 mg total) by mouth every 8 (eight) hours as needed for pain for up to 5 days. 15 tablet 02/08/2025 02/13/2025 polyethylene glycol (MIRALAX) 17 gram packet Take 1 packet (17 g total) by mouth 2 (two) times daily for 5 days. Mix in 8 ounces of water, juice, soda, coffee or tea prior to taking. 10 packet 02/08/2025 02/13/2025 propranoloL (INDERAL) 20 mg Immediate Release tablet Take 1 tablet (20 mg total) by mouth every 8 (eight) hours. 90 tablet 1 02/08/2025 senna 8.6 mg tablet Take 1 tablet (8.6 mg total) by mouth nightly as needed for constipation. 30 tablet 3 02/09/2025 tamsulosin (FLOMAX) 0.4 mg 24 hr capsule Take 1 capsule (0.4 mg total) by mouth nightly. 30 capsule 02/08/2025 documented as of this encounter Progress Notes * Emanuel Albarado MD - 02/08/2025 8:09 AM EST Images from the original note were not included. [facility] Medicine Service Resident Inpatient Transfer Note Patient: Paul Estrella, a 39 y.o. female Attending Provider: Uriel Kaplan MD Admission Date: 01/31/2025 Hospital Day: Hospital Day: 9 Admission Diagnosis: Graves disease [E05.00] Hyperthyroidism [E05.90] Nephrolithiasis [N20.0] Mediastinal mass [J98.59] Acute cystitis with hematuria [N30.01] Right nephrolithiasis [N20.0] Malnutrition, unspecified type (HC Code) [E46] ID Paul Estrella is a 39 y.o. female with hx anxiety, hyperthyroid 2020 (not on tx) c/b recent dx Graves disease w associated anterior mediastinal mass, R>L nephrolithiasis s/p recent OSH admission for thyroid storm p/f worsening Graves and R flank pain Interval Yesterday: - Pain improved with standing toradol but ongoing, especially bad overnight - Had 1 small BM Overnight: - Required dilaudid IV in AM, and valium PO Today: Feels significantly improved, states her pain is at a 0/10 right now. Also emphasizes that she really would like to go home, this afternoon if possible if pain well controlled. Objective Current Medications: Scheduled: Current Facility-Administered Medications Medication Dose Route Frequency Provider Last Rate Last Admin acetaminophen (TYLENOL) tablet 1,000 mg 1,000 mg Oral Q8H Emanuel Albarado MD 1,000 mg at 02/07/25 230 enoxaparin (LOVENOX) syringe 40 mg 40 mg Subcutaneous Daily Manjinder Maguire MD 40 mg at 02/07/25 111 ketorolac (TORadol) injection 30 mg 30 mg IV Push Q6H Uriel Kaplan MD 30 mg at 02/08/25 015 lidocaine uro-jet (XYLOCAINE) 2 % jelly 11 mL 11 mL Other 3 times daily Emanuel Albarado MD 11 mL at 02/07/252023 magnesium sulfate in water 2 gram/50 mL (4 %) (IVPB) 2 g 2 g Intravenous Once Emanuel Albarado MD methIMAzole (TAPAZOLE) tablet 15 mg 15 mg Oral BID Emanuel Albarado MD 15 mg at 02/07/252017 multivitamin with folic acid (THERAGRAN) tablet 1 tablet 1 tablet Oral Daily Manjinder Maguire MD1 tablet at 02/07/251114 oxybutynin (DITROPAN) immediate release tablet 5 mg 5 mg Oral TID Emanuel Albarado MD 5 mg at polyethylene glycol (MIRALAX) packet 34 g 34 g Oral BID Emanuel Albarado MD 34 g at 02/07/252017 propranoloL (INDERAL) Immediate Release tablet 20 mg 20 mg Oral Q8H Emanuel Albarado MD 20 mg at 02/07/252311 senna (SENOKOT) tablet 8.6 mg 1 tablet Oral Daily Uriel Kaplan MD 8.6 mg at 02/06/251499 tamsulosin (FLOMAX) 24 hr capsule 0.4 mg 0.4 mg Oral Nightly Dontae Rodriguez MD 0.4 mg at 02/07/252023 traZODone (DESYREL) tablet 25 mg 25 mg Oral Nightly Uriel Kaplan MD 25 mg at 02/07/252017 PRN: bisacodyL, diazePAM, HYDROmorphone, hydrOXYzine, ketorolac FOLLOWED BY [START ON 02/11/2025] ketorolac, metoclopramide HCl OR metoclopramide, ondansetron (ZOFRAN) IV Push, oxyCODONE OR oxyCODONE Continuous: Allergies: is allergic to ceftriaxone and iodinated contrast media. Vitals (Last 24 Hrs): Temp: [98.2 ??F (36.8 ??C)-99.1 ??F (37.3 ??C)] 98.2 ??F (36.8 ??C) Pulse: [77-94] 91 Resp: [18] 18 BP: (97-154)/(58-82) 131/72 SpO2: [97 %-100 %] 98 % Device: room air Wt Readings from Last 3 Encounters: 02/04/25 72.9 kg I/O's (Last 24 Hrs): No intake or output data in the 24 hours ending 02/08/25 0810 Physical Exam: General: Appears stated age, in NAD HEENT: Normocephalic, atraumatic. EOMI CV: Regular rate and rhythm, S1/S2 present, no appreciable murmurs, rubs, or gallops. Pulm: Non-labored breathing, lungs clear bilaterally anteriorly, no wheezes, crackles, or rhonchi Abd: Bowel sounds present. Mild suprapubic tenderness to deep palpation Ext: Warm and perfused, no LE pitting edema, no clubbing or cyanosis Neuro: A&Ox4. CN II-XII grossly intact. Skin: No rashes, lesions. Psych: Appropriate thought content and speech. Diagnostic Studies CBC/BMP: Recent Labs Lab 02/05/25 0611 02/06/25 0539 02/07/25 0431 02/08/25 0412 WBC 8.2 4.9 6.7 5.1 HGB 11.1* 10.9* 11.1* 10.3* PLT 264 264 292 286 NA 139 141 141 141 K 4.5 4.0 4.1 4.0 CO2 26 25 24 25 ANIONGAP 10 11 9 10 BUN 9 9 12 8 CREATININE 0.61 0.60 0.58 0.61 Lytes, Coags, LFTs: Recent Labs Lab 02/05/25 0611 02/06/25 0539 02/07/25 0431 02/08/25 0412 CALCIUM 9.3 9.2 9.6 9.2 MG 1.6* 2.0 1.7 1.5* PHOS 4.1 5.2* 5.0* -- BILITOT 0.4 0.4 0.3 0.4 BILIDIR 0.2 0.2 0.2 -- ALT 104* 68* 107* 101* AST 73* 39* 87* 69* ALBUMIN 3.5* 3.4* 3.5* 3.2* Glucose Trend: Recent Labs Lab 02/03/25 0503 02/04/25 0507 02/05/25 0611 02/06/25 0539 02/07/25 0431 02/08/25 0412 GLU 101* 97 123* 87 107* 96 Troponins: No results for input(s): TROPONINT in the last 168 hours. pHart: No results for input(s): PHART , [id number] , PO2ART , LLK9DKK , P5WOPWVP , LITERFLOW inthe last 168 hours. COVID Monitoring: Lab Results Component Value Date SARSCOV2 Not Detected 01/26/2025 Imaging/Monitors Radiology No results found. No results found. Cardiac EKG: Results for orders placed or performed during the hospital encounter of 01/31/25 EKG Result Value Ref Range Heart Rate 105 bpm QRS Interval 77 ms QT Interval 331 ms QTC Interval 439 ms P [place] 29 deg QRS [place] 37 deg T Wave [place] 57 deg P-R Interval 129 msec SEVERITY Borderline ECG severity TTE:No results found for this or any previous visit. Micro: Ucx 02/02- <10k CFU Impression Paul Estrella is a 39 y.o. female with hx anxiety, Graves disease w associated anterior mediastinalmass, R>L nephrolithiasis p/w Graves thyroiditis and R flank pain s/p R ureteral stent, ccb ongoing stent colic with improved pain control today Plan #Graves disease Initially treated at OSH with methimazole up to 30 mg TID. Later transitioned to PTU as free T4 levels remained >7 with methimazole. Also treated with propranolol and cholestyramine. By discharge her fT4 improved to 4.46. Cholestyramine was discontinued. Symptoms now improving with PTU followed by methimazole. -appreciate Endo recs - Continue with methimazole to 15 mg b.i.d. - Will need TFTs tomorrow - Endocrine to follow up outpatient - Continue propanolol 20mg TID - Titrate to goal HR<90. Hold if heart rate <50 or SBP <90 -Avoid iodinated contrast as it can worsen hyperthyroidism. -c/w diazepam BID PRN, atarax q6h PRN for anxiety #R nephrolithiasis s/p ureteral stent, now with stent colic #Duplicated R collecting system, partial 2 stones in the right UPJ w/theoretical intermittent obstruction on renal u/s. S/p right ureteral stent 02/02. With ongoing stent colic -Appreciate Uro recs - will f/u outpatient -flomax 0.4mg nightly -pain control - Switch to standing Motrin 800 mg q.i.d. today - Tylenol 1000 mg q6h - xylocaine jelly periurethrally - oxybutynin 5 mg TID - diazepam 2mg BID PRN for pain or anxiety - hold off pyridium for now to avoid nephrotox - oxy 10mg q4h PRN for breakthrough -STOP dilaudid 1mg q6h PRN if unresponsive - trazodone 25mg qhs for insomnia -Strain all urine #Dysuria Pyuria on recent UA, no clear evidence of infection. S/p levofloxacin IV at OSH, cipro PO BID here,since discontinued given no symptoms 02/02. Urology says no indication for abx after stent. Report of CTX allergy. Ucx with <10k CFU. Repeat UA 02/04 not c/f infection. 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 LDH only slightly elevated, uric acid normal. HIV negative. Flow sent at OSH. 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 -f/u [facility], flow cytometry - On Discharge -repeat chest imaging in 6mo after euthyroidism (or sooner if symptoms of local progression) If< 50% regression of the mass, biopsy or thymectomy should be reconsidered to r/o malignancy. 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 Cosigned by Fiona Squires MD at 02/09/2025 8:44 AM EST * Uriel Kaplan MD - 02/07/2025 1:21 PM EST Images from the original note were not included. [facility] Medicine Service Resident Inpatient Progress Note Patient: Paul Estrella, a 39 y.o. female Attending Provider: Uriel Kaplan MD Admission Date: 01/31/2025 Hospital Day: Hospital Day: 8 Admission Diagnosis: Graves disease [E05.00] Hyperthyroidism [E05.90] Nephrolithiasis [N20.0] Mediastinal mass [J98.59] Acute cystitis with hematuria [N30.01] Right nephrolithiasis [N20.0] Malnutrition, unspecified type (HC Code) [E46] ID Paul Estrella is a 39 y.o. female with hx anxiety, hyperthyroid 2020 (not on tx) c/b recent dx Graves disease w associated anterior mediastinal mass, R>L nephrolithiasis s/p recent OSH admission for thyroid storm p/f worsening Graves and R flank pain Interval 24hr events - still struggling with pain, typically worse overnight, with N/V overnight last night, despite change to ketorolac scheduled and adding Urojet and oxybutynin as per urology recs; still taking oxycodone and hydromorphone often with inadequate control. Had 1 small BM yesterday. Objective Current Medications: Scheduled: Current Facility-Administered Medications Medication Dose Route Frequency Provider Last Rate Last Admin acetaminophen (TYLENOL) tablet 1,000 mg 1,000 mg Oral Q8H Emanuel Albarado MD 1,000 mg at 02/06/25 211 enoxaparin (LOVENOX) syringe 40 mg 40 mg Subcutaneous Daily Manjinder Maguire MD 40 mg at 02/07/25 1116 ketorolac (TORadol) injection 30 mg 30 mg IV Push Q6H Uriel Kaplan MD lidocaine uro-jet (XYLOCAINE) 2 % jelly 11 mL 11 mL Other 3 times daily Emanuel Albarado MD 11 mL at 02/07/25 1116 methIMAzole (TAPAZOLE) tablet 15 mg 15 mg Oral BID Emanuel Albarado MD 15 mg at 02/07/25 111 multivitamin with folic acid (THERAGRAN) tablet 1 tablet 1 tablet Oral Daily Manjinder Maguire MD1 tablet at 02/07/251114 oxybutynin (DITROPAN) immediate release tablet 5 mg 5 mg Oral TID Emanuel Albarado MD 5 mg at 115 polyethylene glycol (MIRALAX) packet 34 g 34 g Oral BID Emanuel Albarado MD 34 g at 02/06/252021 propranoloL (INDERAL) Immediate Release tablet 20 mg 20 mg Oral Q8H Emanuel Albarado MD 20 mg at 02/07/25 0354 senna (SENOKOT) tablet 8.6 mg 1 tablet Oral Daily Uriel Kaplan MD 8.6 mg at 02/06/25 1500 tamsulosin (FLOMAX) 24 hr capsule 0.4 mg 0.4 mg Oral Nightly Dontae Rodriguez MD 0.4 mg at 02/06/252021 traZODone (DESYREL) tablet 25 mg 25 mg Oral Nightly Uriel Kaplan MD 25 mg at 02/06/252021 PRN: bisacodyL, diazePAM, HYDROmorphone, hydrOXYzine, metoclopramide HCl OR metoclopramide, ondansetron (ZOFRAN) IV Push, oxyCODONE OR oxyCODONE Continuous: Allergies: is allergic to ceftriaxone and iodinated contrast media. Vitals (Last 24 Hrs): Temp: [97.7 ??F (36.5 ??C)-98.9 ??F (37.2 ??C)] 98.9 ??F (37.2 ??C) Pulse: [80-98] 98 Resp: [14-22] 19 BP: (102-149)/(67-85) 149/85 SpO2: [97 %-100 %] 97 % Device: room air Wt Readings from Last 3 Encounters: 02/04/25 72.9 kg I/O's (Last 24 Hrs): Gross Totals (Last 24 hours) at 02/07/2025 1323 Last data filed at 02/06/2025 2100 Intake 120 ml Output 100 ml Net 20 ml Physical Exam: General: Appears stated age, tremulous (she attributes it to pain) HEENT: Normocephalic, atraumatic. EOMI CV: Regular rate and rhythm, S1/S2 present, no appreciable murmurs, rubs, or gallops. Pulm: Non-labored breathing, lungs clear bilaterally anteriorly, no wheezes, crackles, or rhonchi Abd: Bowel sounds present. Mild suprapubic tenderness to deep palpation Ext: Warm and perfused, no LE pitting edema, no clubbing or cyanosis Neuro: A&Ox4. CN II-XII grossly intact. Skin: No rashes, lesions. Psych: Appropriate thought content and speech. Diagnostic Studies CBC/BMP: Recent Labs Lab 02/04/25 0507 02/05/25 0611 02/06/25 0539 02/07/25 0431 WBC 8.3 8.2 4.9 6.7 HGB 11.2* 11.1* 10.9* 11.1* PLT 277 264 264 292 NA 138 139 141 141 K 4.2 4.5 4.0 4.1 CO2 25 26 25 24 ANIONGAP 9 10 11 9 BUN 7 9 9 12 CREATININE 0.52 0.61 0.60 0.58 Lytes, Coags, LFTs: Recent Labs Lab 02/04/25 0507 02/05/25 0611 02/06/25 0539 02/07/25 0431 CALCIUM 9.4 9.3 9.2 9.6 MG 1.6* 1.6* 2.0 1.7 PHOS 4.2 4.1 5.2* 5.0* BILITOT 0.4 0.4 0.4 0.3 BILIDIR 0.2 0.2 0.2 0.2 ALT 56* 104* 68* 107* AST 117* 73* 39* 87* ALBUMIN 3.5* 3.5* 3.4* 3.5* Glucose Trend: Recent Labs Lab 02/02/25 0435 02/03/25 0503 02/04/25 0507 02/05/25 0611 02/06/25 0539 02/07/25 0431 GLU 94 101* 97 123* 87 107* Troponins: No results for input(s): TROPONINT in the last 168 hours. pHart: No results for input(s): PHART , AGO2ICR , PO2ART , ZBX3JOW , R8MKWPEM , LITERFLOW inthe last 168 hours. COVID Monitoring: Lab Results Component Value Date SARSCOV2 Not Detected 01/26/2025 Imaging/Monitors Radiology No results found. No results found. Cardiac EKG: Results for orders placed or performed during the hospital encounter of 01/31/25 EKG Result Value Ref Range Heart Rate 105 bpm QRS Interval 77 ms QT Interval 331 ms QTC Interval 439 ms P [place] 29 deg QRS [place] 37 deg T Wave [place] 57 deg P-R Interval 129 msec SEVERITY Borderline ECG severity TTE:No results found for this or any previous visit. Micro: Ucx 02/02- <10k CFU Impression Paul Estrella is a 39 y.o. female with hx anxiety, Graves disease w associated anterior mediastinalmass, R>L nephrolithiasis p/w Graves thyroiditis and R flank pain s/p R ureteral stent, now withongoing pain Plan #Graves disease with associated symptoms including anxiety Initially treated at OSH with methimazole up to 30 mg TID. Later transitioned to PTU as free T4 levels remained >7 with methimazole. Also treated with propranolol and cholestyramine. By discharge her fT4 improved to 4.46. Cholestyramine was discontinued. Symptoms now improving with PTU followed by methimazole. -appreciate Endo recs - Continue with methimazole to 15 mg b.i.d. (switched from PTU days ago 2/2 elevated LFTs) - Will need TFTs early this coming week - Outpatient endocrinology referral placed - Decreased propranolol to 20 mg TID given softer Bps 02/06; following - Titrate to goal HR<90. Hold if heart rate <50 or SBP <90 -Avoid iodinated contrast as it can worsen hyperthyroidism. -c/w diazepam BID PRN, atarax q6h PRN for anxiety #R nephrolithiasis s/p ureteral stent, ongoing right-sided pain #Duplicated R collecting system, partial 2 stones in the right UPJ w/theoretical intermittent obstruction on renal u/s. S/p right ureteral stent 02/02. With ongoing colic; given ongoing and impressive pain, checking renal US and may need torevisit/broaden workup and specialty involvement (benign-appearing right ovarian cyst not c/w findings here) -Appreciate Uro recs - will f/u outpatient -flomax 0.4mg nightly -pain control - giving ketoprolac ATC through today--> plan to transition to ibuprofen thereafter - Tylenol 1000 mg q8h - xylocaine jelly periurethrally - oxybutynin 5 mg TID - diazepam 2mg BID PRN for pain/spasm or anxiety - hold off pyridium for now to avoid nephrotoxicity risk - oxycodone 10mg q4h PRN for breakthrough-->dilaudid 1mg q6h PRN if unresponsive - trazodone 25mg qhs for insomnia -Strain all urine #Dysuria Pyuria on recent UA, no clear evidence of infection. S/p levofloxacin IV at OSH, cipro PO BID here,since discontinued given no symptoms 02/02. Urology says no indication for abx after stent. Report of CTX allergy. Ucx with <10k CFU. Repeat UA 02/04 not c/f infection. 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 LDH only slightly elevated, uric acid normal. HIV negative. Flow sent at OSH. 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 -f/u [facility]AL[facility], flow cytometry - On Discharge -repeat chest imaging in 3-6mo after euthyroidism (or sooner if symptoms of local progression) If< 50% regression of the mass, biopsy or thymectomy should be reconsidered to r/o malignancy. - corporate statistical financial analyst f/u for 2.8cm R sided ovarian cysts - PCP f/u for pulm nodules #Constipation - Increase miralax 34g to b.i.d., senna qhs #Hospital Checklist: Activity: OOB as tolerated PT/OT: Ongoing DVT Px: lovenox ppx Code: FULL CODE Access: PIV Diet: Regular Fluids: None Barriers to Dispo: Pending pain ctrl Communication Primary Emergency Contact: Jose Estrella Medical decision making for this patient was high. I spent 35 minutes today on this encounter before, during, and after the visit, reviewing labs and records, evaluating and examining the patient, entering orders and documenting the visit. Electronic Signature Uriel Kaplan MD 02/07/2025 1:24 PM * Emanuel Albarado MD - 02/06/2025 8:05 AM EST Images from the original note were not included. [facility] Medicine Service Resident Inpatient Transfer Note Patient: Paul Estrella, a 39 y.o. female Attending Provider: Uriel Kaplan MD Admission Date: 01/31/2025 Hospital Day: Hospital Day: 7 Admission Diagnosis: Graves disease [E05.00] Hyperthyroidism [E05.90] Nephrolithiasis [N20.0] Mediastinal mass [J98.59] Acute cystitis with hematuria [N30.01] Right nephrolithiasis [N20.0] Malnutrition, unspecified type (HC Code) [E46] ID Paul Estrella is a 39 y.o. female with hx anxiety, hyperthyroid 2020 (not on tx) c/b recent dx Graves disease w associated anterior mediastinal mass, R>L nephrolithiasis s/p recent OSH admission for thyroid storm p/f worsening Graves and R flank pain Interval Yesterday: - Continues with persistent pain --> change regimen to IV Toradol x2 followed by Motrin p.r.n., added Uro jet and oxybutynin - UA unconcerning for infection - Decreased methimazole to 15 mg b.i.d. Overnight: - Persistent pain after Toradol, required 1 dose of Dilaudid and oxy. - Propanolol dose held for SBP 93 and HR of 77. Today: Feel slightly improved, states her pain is gradually responding to NSAIDs. More agreeable tonot decline pain medications, as she understands that this is to optimize her symptoms Objective Current Medications: Scheduled: Current Facility-Administered Medications Medication Dose Route Frequency Provider Last Rate Last Admin acetaminophen (TYLENOL) tablet 975 mg 975 mg Oral Q8H Chris Gardiner MD 975 mg at 02/06/25 0553 enoxaparin (LOVENOX) syringe 40 mg 40 mg Subcutaneous Daily Manjinder Maguire MD 40 mg at 02/05/25 0940 ketorolac (TORadol) injection 60 mg 60 mg IV Push Q6H Emanuel Albarado MD lidocaine uro-jet (XYLOCAINE) 2 % jelly 11 mL 11 mL Other 3 times daily Emanuel Albarado MD methIMAzole (TAPAZOLE) tablet 15 mg 15 mg Oral BID Emanuel Albarado MD 15 mg at 02/05/252132 multivitamin with folic acid (THERAGRAN) tablet 1 tablet 1 tablet Oral Daily Manjinder Maguire MD1 tablet at 02/05/25 0940 oxybutynin (DITROPAN) immediate release tablet 5 mg 5 mg Oral TID Emanuel Albarado MD 5 mg at polyethylene glycol (MIRALAX) packet 17 g 17 g Oral BID Emanuel Albarado MD 17 g at 02/05/252131 propranoloL (INDERAL) Immediate Release tablet 40 mg 40 mg Oral Q8H Dontae Rodriguez MD 40 mg at 02/05/25 182 tamsulosin (FLOMAX) 24 hr capsule 0.4 mg 0.4 mg Oral Nightly Dontae Rodriguez MD 0.4 mg at 02/05/252131 PRN: diazePAM, HYDROmorphone, hydrOXYzine, ibuprofen, metoclopramide HCl OR metoclopramide, ondansetron (ZOFRAN) IV Push, oxyCODONE OR oxyCODONE, senna Continuous: Allergies: is allergic to ceftriaxone and iodinated contrast media. Vitals (Last 24 Hrs): Temp: [97.5 ??F (36.4 ??C)-99 ??F (37.2 ??C)] 97.5 ??F (36.4 ??C) Pulse: [72-103] 72 Resp: [16-20] 16 BP: (93-150)/(58-81) 99/62 SpO2: [97 %-100 %] 100 % Device: room air Wt Readings from Last 3 Encounters: 02/04/25 72.9 kg I/O's (Last 24 Hrs): Gross Totals (Last 24 hours) at 02/06/2025 0805 Last data filed at 02/05/2025 1839 Intake 600 ml Output 460 ml Net 140 ml Physical Exam: General: Appears stated age, tremulous, attributing it to pain HEENT: Normocephalic, atraumatic. EOMI CV: Regular rate and rhythm, S1/S2 present, no appreciable murmurs, rubs, or gallops. Pulm: Non-labored breathing, lungs clear bilaterally anteriorly, no wheezes, crackles, or rhonchi Abd: Bowel sounds present. Mild suprapubic tenderness to deep palpation Ext: Warm and perfused, no LE pitting edema, no clubbing or cyanosis Neuro: A&Ox4. CN II-XII grossly intact. Skin: No rashes, lesions. Psych: Appropriate thought content and speech. Diagnostic Studies CBC/BMP: Recent Labs Lab 02/03/25 0503 02/04/25 0507 02/05/25 0611 02/06/25 0539 WBC 7.2 8.3 8.2 4.9 HGB 11.7 11.2* 11.1* 10.9* PLT 263 277 264 264 NA 138 138 139 141 K 4.2 4.2 4.5 4.0 CO2 ANIONGAP 10 9 10 11 BUN 14 7 9 9 CREATININE 0.60 0.52 0.61 0.60 Lytes, Coags, LFTs: Recent Labs Lab 02/03/25 0503 02/04/25 0507 02/05/25 0611 02/06/25 0539 CALCIUM 9.5 9.4 9.3 9.2 MG 1.8 1.6* 1.6* 2.0 PHOS 5.1* 4.2 4.1 5.2* BILITOT 0.4 0.4 0.4 0.4 BILIDIR 0.2 0.2 0.2 0.2 ALT 34 56* 104* 68* AST 22 117* 73* 39* ALBUMIN 3.4* 3.5* 3.5* 3.4* Glucose Trend: Recent Labs Lab 02/01/25 0623 02/02/25 0435 02/03/25 0503 02/04/25 0507 02/05/25 0611 02/06/25 0539 GLU 114* 94 101* 97 123* 87 Troponins: No results for input(s): TROPONINT in the last 168 hours. pHart: No results for input(s): PHART , GCD2BCI , PO2ART , ZRC4OGO , A1HUPZYN , LITERFLOW inthe last 168 hours. COVID Monitoring: Lab Results Component Value Date SARSCOV2 Not Detected 01/26/2025 Imaging/Monitors Radiology No results found. No results found. Cardiac EKG: Results for orders placed or performed during the hospital encounter of 01/31/25 EKG Result Value Ref Range Heart Rate 105 bpm QRS Interval 77 ms QT Interval 331 ms QTC Interval 439 ms P [place] 29 deg QRS [place] 37 deg T Wave [place] 57 deg P-R Interval 129 msec SEVERITY Borderline ECG severity TTE:No results found for this or any previous visit. Micro: Ucx 02/02- <10k CFU Impression Paul Estrella is a 39 y.o. female with hx anxiety, Graves disease w associated anterior mediastinalmass, R>L nephrolithiasis p/w Graves thyroiditis and R flank pain s/p R ureteral stent, now withongoing pain Plan #Graves disease Initially treated at OSH with methimazole up to 30 mg TID. Later transitioned to PTU as free T4 levels remained >7 with methimazole. Also treated with propranolol and cholestyramine. By discharge her fT4 improved to 4.46. Cholestyramine was discontinued. Symptoms now improving with PTU followed by methimazole. -appreciate Endo recs - Continue with methimazole to 15 mg b.i.d. - Will need TFTs early next week - Outpatient endocrinology referral placed - Decrease propranolol to 20 mg TID given softer BPs.. - Titrate to goal HR<90. Hold if heart rate <50 or SBP <90 -Avoid iodinated contrast as it can worsen hyperthyroidism. -c/w diazepam BID PRN, atarax q6h PRN for anxiety #R nephrolithiasis s/p ureteral stent, now with stent colic #Duplicated R collecting system, partial 2 stones in the right UPJ w/theoretical intermittent obstruction on renal u/s. S/p right ureteral stent 02/02. With ongoing stent colic -Appreciate Uro recs - will f/u outpatient -flomax 0.4mg nightly -pain control - Increase toradol to 45mg for 24 hours--> motrin standing thereafter - Tylenol 1000 mg q8h - xylocaine jelly periurethrally - oxybutynin 5 mg TID - diazepam 2mg BID PRN for pain or anxiety - hold off pyridium for now to avoid nephrotox - oxy 10mg q4h PRN for breakthrough-->dilaudid 1mg q6h PRN if unresponsive - trazodone 25mg qhs for insomnia -Strain all urine #Dysuria Pyuria on recent UA, no clear evidence of infection. S/p levofloxacin IV at OSH, cipro PO BID here,since discontinued given no symptoms 02/02. Urology says no indication for abx after stent. Report of CTX allergy. Ucx with <10k CFU. Repeat UA 02/04 not c/f infection. 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 LDH only slightly elevated, uric acid normal. HIV negative. Flow sent at OSH. 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 -f/u [facility]AL[facility], flow cytometry - On Discharge -repeat chest imaging in 6mo after euthyroidism (or sooner if symptoms of local progression) If< 50% regression of the mass, biopsy or thymectomy should be reconsidered to r/o malignancy. - corporate statistical financial analyst f/u for 2.8cm R sided ovarian cysts - PCP f/u for pulm nodules #Constipation - Increase miralax 34g to b.i.d., senna qhs #Hospital Checklist: Activity: OOB as tolerated PT/OT: Ongoing DVT Px: lovenox ppx Code: FULL CODE Access: PIV Diet: Regular Fluids: None Barriers to Dispo: Pending pain ctrl Communication Primary Emergency Contact: DeloresJose Signed: Emanuel Albarado MD PGY-3, Internal Medicine Reachable via [facility] Please await attending attestation and addendum to follow. Cosigned by Uriel Kaplan MD at 02/06/2025 4:33 PM EST Associated attestation - Uriel Kaplan MD - 02/06/2025 4:33 PM EST I agree with the note as is documented below. Patient was seen and examined by me today. Case and plan was discussed with Dr. Albarado. Paul Estrella is a 39-year-old female who was admitted with multiple active issues including but not limited to symptomatic hyperthyroidism iso inadequately-treated Graves' disease (TSI+; was prescribed nut unable to get the PTU after inadequate response to methimazole) and ongoing right flank painand nausea iso nephrolithiasis (more sizable stones on the right with adjacent pelviectasis) now s/p cystoscopy with placement of a right ureteral stent (02/02). We appreciate the subspecialty teams'[including endocrinology, urology, and medical oncology (iso anterior mediastinal mass likely 2/2 thymic hyperplasia)] efforts/recs. We are following her clinical hyperthyroidism signs/symptoms alongwith TFTs including free T4 and total T3, which appear to be responding; she was initially on PTU but with uptrending LFTs, was switched to methimazole as per endo recs. We continue to adjust the propranolol for a HR goal < 90 (being mindful of some softer BPs and transient bradycardia noted as w ell; HR control presently good; dose reduced 02/06). After discharge,as per endocrinology recs, theplan is for her to have repeat labs (TFTs, LFTs) around /Sats of next week, along with close follow-up. We are continuing the newly- started tamsulosin and following urinary output (straining urine for stones), labs, and symptoms; she continues to have gross hematuria, though improved. She also continues to struggle with significant right abdomen/flank/back pain attributed to her nephrolithiasis requiring repeated doses of oral and enteral opioids so we revisit things with urology; we would like to see her pain control be reasonably adequate on oral meds and minimal opioids prior to discharge home (current pain plan as noted below). 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 As such, she should have repeat chest imaging within 3-6 months after achievement of euthyroidism, at which time a biopsy would be indicated ifthere is less than a 50% regression in size noted. Unsurprisingly, she developed constipation in the setting of opioid use, reduced mobility, and reduced PO intake/hydration, etc.; we are aggressively uptitrating her bowel regimen accordingly and she may likely needs supps/enemas if she is agreeable. We have repleted her hypomagnesemia and following. Medical decision making for this patient was moderate. I spent 35 minutes today on this encounter before, during, and after the visit, reviewing labs and records, evaluating and examining the patient, entering orders and documenting the visit. Electronic Signature Uriel Kaplan MD 02/06/25 4:30 PM * Andi Hassan MD - 02/05/2025 8:40 AM EST Images from the original note were not included. [facility] Endocrine Progress Note Attending Provider: Uriel Kaplan MD Impression: 39 y.o. female with Graves disease admitted for hyperthyroidism in the setting of missed PTU doses,endocrinology following for the above. Initial improved TFTs on high dose PTU, unfortunately with elevation in LFTs prompting transition to methimazole (20 mg BID). Patient tolerating well with significant reduction in TFTs this AM (FT4 2.95), and in AST (117->73). ALT 104, although likely lagging. Given current FT4 level would reduce MMI dose to 15mg BID which should be continued until outpatient evaluation. Recommendations: Inpatient Recommendations: Reduce methimazole to 15 mg BID TFTs, LFTs Saturday-Saturday of next week Outpatient endocrinology referral in place Please contact with any additional questions. Subjective: Interim History: Improved TFTs. ROS: 12 point ROS completed and negative except as mentioned above. Endocrine Medications: MMI Inpatient Medications: I have reviewed the patient's current medication orders. Objective: Vitals: Vitals: 02/04/25200002/05/25 0013 02/05/25 0520 02/05/25 0753 BP: 102/66 117/66 94/60 103/66 Pulse: 86 83 87 80 Resp: 18 19 16 18 Temp: 98.3 ??F (36.8 ??C) 98.5 ??F (36.9 ??C) 98.4 ??F (36.9 ??C) 98.4 ??F (36.9 ??C) TempSrc: Oral Oral Oral Oral SpO2: 99% 99% 99% 100% Weight: Height: I/O's: I/O last 3 completed shifts: In: 720 [P.O.:720] Out: 300 [Urine:300] No intake/output data recorded. Gross Totals (Last 24 hours) at 02/05/2025 0840 Last data filed at 02/04/2025 1800 Intake 240 ml Output 300 ml Net -60 ml Endocrine Physical Exam: GENERAL: NAD HEENT: Thyromegaly LUNGS: Chest rise even and unlabored HEART: No appreciable JVD ABDOMEN: Nondistended EXTREMITIES: Without any cyanosis NEUROLOGIC: CN II - XII grossly intact PSYCHIATRIC: Appropriate affect, not responding to internal stimuli Labs: I have reviewed the patient's labs within the last 24 hrs. Significant findings are: Latest Reference Range & Units 02/02/25 04:35 02/03/25 05:03 02/04/25 05:07 02/05/25 06:11 Free T4 ng/dL 5.57 (H) 4.09 (H) 4.43 (H) 2.95 (H) T3, Total ng/dL 274.0 (H) 241.0 (H) 242.0 (H) 303.0 (H) Latest Reference Range & Units 02/03/25 05:03 02/04/25 05:07 02/05/25 06:11 Alanine Aminotransferase (ALT) 10 - 35 U/L 34 56 (H) 104 (H) Aspartate Aminotransferase (AST) 10 - 35 U/L 22 117 (H) 73 (H) Diagnostics: I have reviewed the patient's Radiology report(s) within the last 48 hrs. Andi Hassan MD Endocrine Fellow Cosigned by Pedro Nichole MD at 02/05/2025 5:19 PM EST Associated attestation - Pedro Nichole MD - 02/05/2025 5:19 PM EST I have seen and evaluated Paul Estrella and reviewed her history, exam and available test results with Dr. Hassan. I agree with the assessment and recommendations outlined in their note with any additions noted below. She transitioned to methimazole yesterday. Free T4 has improved significantly but remains elevated.Transaminases remain mildly elevated with an increase in ALT but decrease in AST compared to yesterday. We would recommend reducing her methimazole to 15 mg twice daily and plan to check TFTs and liver function tests early next week. Outpatient endocrinology referral has been placed. I provided hermy card should she have any difficulty in arranging labs closer to home or in arranging the endocrine follow up visit. We will provide an order and lab slip for these blood tests next week. If she remains hospitalized, we will continue to monitor while admitted. Pedro Nichole MD [place] * Emanuel Albarado MD - 02/05/2025 8:28 AM EST Images from the original note were not included. [facility] Medicine Service Resident Inpatient Transfer Note Patient: Paul Estrella, a 39 y.o. female Attending Provider: Uriel Kaplan MD Admission Date: 01/31/2025 Hospital Day: Hospital Day: 6 Admission Diagnosis: Graves disease [E05.00] Hyperthyroidism [E05.90] Nephrolithiasis [N20.0] Mediastinal mass [J98.59] Acute cystitis with hematuria [N30.01] Right nephrolithiasis [N20.0] Malnutrition, unspecified type (HC Code) [E46] ID Paul Estrella is a 39 y.o. female with hx anxiety, hyperthyroid 2020 (not on tx) c/b recent dx Graves disease w associated anterior mediastinal mass, R>L nephrolithiasis s/p recent OSH admission for thyroid storm p/f worsening Graves and R flank pain Interval Yesterday: - pt with persistent pain --> changed pyridine to standing (did not want to go up on narcotics) - ucx wnl - LFTs uptrended-->switched PTU to methimazole Overnight: NAEO Today: Patient in significant pain, states that she had to beg for IV pain medications overnight. Continues to endorse dysuria and suprapubic pain now with orange-colored urine. Objective Current Medications: Scheduled: Current Facility-Administered Medications Medication Dose Route Frequency Provider Last Rate Last Admin acetaminophen (TYLENOL) tablet 975 mg 975 mg Oral Q8H Chris Gardiner MD 975 mg at 02/05/25 0524 enoxaparin (LOVENOX) syringe 40 mg 40 mg Subcutaneous Daily Manjinder Maguire MD 40 mg at 02/04/25 0814 methIMAzole (TAPAZOLE) tablet 20 mg 20 mg Oral BID Emanuel Albarado MD 20 mg at 02/04/252001 multivitamin with folic acid (THERAGRAN) tablet 1 tablet 1 tablet Oral Daily Manjinder Maguire MD1 tablet at 02/03/25 0808 phenazopyridine (PYRIDIUM) tablet 200 mg 200 mg Oral TID WC Emanuel Albarado MD 200 mg at 02/04/25 1709 polyethylene glycol (MIRALAX) packet 17 g 17 g Oral Daily Emanuel Albarado MD propranoloL (INDERAL) Immediate Release tablet 40 mg 40 mg Oral Q8H Dontae Rodriguez MD 40 mg at 02/05/25 0017 tamsulosin (FLOMAX) 24 hr capsule 0.4 mg 0.4 mg Oral Nightly Dontae Rodriguez MD 0.4 mg at 02/04/252001 PRN: diazePAM, HYDROmorphone, hydrOXYzine, metoclopramide HCl OR metoclopramide, morphine, oxyCODONEOR oxyCODONE, senna Continuous: Allergies: is allergic to ceftriaxone and iodinated contrast media. Vitals (Last 24 Hrs): Temp: [97.9 ??F (36.6 ??C)-98.5 ??F (36.9 ??C)] 98.4 ??F (36.9 ??C) Pulse: [77-87] 80 Resp: [16-19] 18 BP: (94-117)/(60-70) 103/66 SpO2: [99 %-100 %] 100 % Device: room air Wt Readings from Last 3 Encounters: 02/04/25 72.9 kg I/O's (Last 24 Hrs): Gross Totals (Last 24 hours) at 02/05/2025 0828 Last data filed at 02/04/2025 1800 Intake 240 ml Output 300 ml Net -60 ml Physical Exam: General: Appears stated age, tearful HEENT: Normocephalic, atraumatic. EOMI CV: Regular rate and rhythm, S1/S2 present, no appreciable murmurs, rubs, or gallops. Pulm: Non-labored breathing, lungs clear bilaterally anteriorly, no wheezes, crackles, or rhonchi Abd: Bowel sounds present. Mild suprapubic tenderness to deep palpation Ext: Warm and perfused, no LE pitting edema, no clubbing or cyanosis Neuro: A&Ox4. CN II-XII grossly intact. Skin: No rashes, lesions. Psych: Appropriate thought content and speech. Diagnostic Studies CBC/BMP: Recent Labs Lab 02/02/25 0435 02/03/25 0503 02/04/25 0507 02/05/25 0611 WBC 7.6 7.2 8.3 8.2 HGB 11.9 11.7 11.2* 11.1* PLT 284 263 277 264 NA 140 138 138 139 K 3.9 4.2 4.2 4.5 CO2 ANIONGAP 11 10 9 10 BUN 9 14 7 9 CREATININE 0.48 0.60 0.52 0.61 Lytes, Coags, LFTs: Recent Labs Lab 02/02/25 0435 02/03/25 0503 02/04/25 0507 02/05/25 0611 CALCIUM 9.5 9.5 9.4 9.3 MG -- 1.8 1.6* 1.6* PHOS -- 5.1* 4.2 4.1 BILITOT -- 0.4 0.4 0.4 BILIDIR -- 0.2 0.2 0.2 ALT -- 34 56* 104* AST -- 22 117* 73* ALBUMIN -- 3.4* 3.5* 3.5* Glucose Trend: Recent Labs Lab 01/31/25 2319 02/01/25 0623 02/02/25 0435 02/03/25 0503 02/04/25 0507 02/05/25 0611 GLU 109* 114* 94 101* 97 123* Troponins: No results for input(s): TROPONINT in the last 168 hours. pHart: No results for input(s): PHART , EPI0PWE , PO2ART , NHV7FFU , H6NXJQRD , LITERFLOW inthe last 168 hours. COVID Monitoring: Lab Results Component Value Date SARSCOV2 Not Detected 01/26/2025 Imaging/Monitors Radiology No results found. No results found. Cardiac EKG: Results for orders placed or performed during the hospital encounter of 01/31/25 EKG Result Value Ref Range Heart Rate 105 bpm QRS Interval 77 ms QT Interval 331 ms QTC Interval 439 ms P [place] 29 deg QRS [place] 37 deg T Wave [place] 57 deg P-R Interval 129 msec SEVERITY Borderline ECG severity TTE:No results found for this or any previous visit. Micro: Ucx 02/02- <10k CFU Impression Paul Estrella is a 39 y.o. 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 Later transitioned to PTU as free T4 levels remained >7 with methimazole. Also treated with propranolol and cholestyramine. By discharge her fT4 improved to 4.46. Cholestyramine was discontinued. Symptoms now improving with PTU followed by methimazole. -appreciate Endo recs - Decrease methimazole to 15 mg b.i.d. given decreased free T4 - Will need TFTs early next week -c/w propranolol 40 mg TID. Titrate to goal HR<90. Hold if heart rate <50 or SBP <90 -Avoid iodinated contrast as it can worsen hyperthyroidism. -c/w diazepam BID PRN, atarax q6h PRN for anxiety #R nephrolithiasis s/p ureteral stent #Duplicated R collecting system, partial 2 stones in the right UPJ w/theoretical intermittent obstruction on renal u/s. S/p right ureteral stent 02/02. With ongoing right flank pain and occasional passage of stones. -Appreciate Uro recs - will re-reach out if persistent pain despite below interventions -flomax 0.4mg nightly -pain control -oxy 5mg q4h PRN for mod pain -oxy 10mg q4h PRN for severe pain -Dilaudid 1mg IV q6h PRN for breakthrough -miralax PRN (given patient has diarrhea iso hyperthyroidism) - pyridium 200mg TID - Tylenol 975 mg q8h - can consider holding if transaminitis continues to worsen -Strain all urine - Repeat infectious workup as below #Dysuria Pyuria on recent UA, no clear evidence of infection. S/p levofloxacin IV at OSH, cipro PO BID here,since discontinued given no symptoms 02/02. Urology says no indication for abx after stent. Report of CTX allergy. Ucx with <10k CFU. 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 LDH only slightly elevated, uric acid normal. HIV negative. Flow sent at OSH. 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 -f/u GALA, flow cytometry - On Discharge -repeat chest imaging in 6mo after euthyroidism (or sooner if symptoms of local progression) If< 50% regression of the mass, biopsy or thymectomy should be reconsidered to r/o malignancy. 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 Cosigned by Uriel Kaplan MD at 02/05/2025 3:30 PM EST Associated attestation - Uriel Kaplan MD - 02/05/2025 3:30 PM EST I agree with the note as is documented below. Patient was seen and examined by me today. Case and plan was discussed with Dr. Albarado. Paul Estrella is a 39-year-old female who was admitted with multiple active issues including but not limited to symptomatic hyperthyroidism iso inadequately-treated Graves' disease (TSI+; presently on PTU 2/2 inadequate response to methimazole, and propranolol) and ongoing right flank pain and nause a iso nephrolithiasis (more sizable stones on the right with adjacent pelviectasis) now s/p cystoscopy with placement of a right ureteral stent (02/02). 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 We are following her clinical hyperthyroidism signs/symptoms along with TFTs including free T4 and total T3, which appear to be responding to the aforementioned regimen, whileadjusting the propranolol for a HR goal < 90 (being mindful of some softer BPs and transient bradycardia noted as well; HR control presently good). It was noted that her LFTs uptrended recently, so the PTU was switched to methimazole and after a dose reduction, she is presently on 15 mg PO BID. After discharge,as per endocrinology recs, the plan is for her to have repeat labs (TFTs, LFTs) around /Sats of next week, along with close follow-up. We are continuing the newly-started tamsulosin and following urinary output (straining urine for stones), labs, and symptoms; she continues to have gross hematuria, though improved. She continues to struggle with significant right abdomen/flank/back pain attributed to her nephrolithiasis, repeated doses of oral and enteral opioids; we would like to see her pain control be reasonably adequate on oral meds and minimal opioids prior to discharge home. 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 As such, she should have repeat chest imaging within 3-6 months after achievement of euthyroidism, at which time a biopsy would be indicated if there is less than a 50% regression in size noted. Unsurprisingly, she developed constipation in the setting of opioid use, reduced mobility, and reduced PO intake/hydration, etc.; we titrating her bowel regimen accordingly. We are repleting her hypomagnesemia and following. Medical decision making for this patient was moderate. I spent 35 minutes today on this encounter before, during, and after the visit, reviewing labs and records, evaluating and examining the patient, entering orders and documenting the visit. Electronic Signature Uriel Kaplan MD 02/05/25 3:30 PM * Andi Hassan MD - 02/04/2025 2:07 PM EST Images from the original note were not included. [facility] Endocrine Progress Note Attending Provider: Uriel Kaplan MD Impression: 39 y.o. female with Graves disease admitted for hyperthyroidism in the setting of missed PTU doses,endocrinology following for the above. Improved TFTs on higher dose of PTU (150 mg TID) unfortunately, now with some transaminates. Due to higher prevalence of liver toxicity with PTU, recommend discontinuation and starting methimazole at 20 mg BID. Will repeat liver function test tomorrow AM to ensure stability at which point it would be reasonable to discharge with close labs and outpatient f/uwhich we will facilitate. Recommendations: Inpatient Recommendations: D/c PTU Start methimazole 20 mg BID Liver function test tomorrow AM Please contact with any additional questions. Subjective: Interim History: On increased PTU, now with some transaminates. ROS: 12 point ROS completed and negative except as mentioned above. Endocrine Medications: MMI Inpatient Medications: I have reviewed the patient's current medication orders. Objective: Vitals: Vitals: 02/04/25 0503 02/04/25 0729 02/04/25 0800 02/04/25 1156 BP: 102/69 98/63 102/62 Pulse: 89 75 77 Resp: 18 18 18 Temp: 98 ??F (36.7 ??C) 97.9 ??F (36.6 ??C) 97.9 ??F (36.6 ??C) TempSrc: Oral Oral Oral SpO2: 99% 99% 100% Weight: 72.9 kg Height: I/O's: I/O last 3 completed shifts: In: 1040 [P.O.:1040] Out: 350 [Urine:350] I/O this shift: In: 720 [P.O.:720] Out: - Gross Totals (Last 24 hours) at 02/04/2025 1407 Last data filed at 02/04/2025 1245 Intake 720 ml Output 350 ml Net 370 ml Endocrine Physical Exam: GENERAL: NAD HEENT: Thyromegaly LUNGS: Chest rise even and unlabored HEART: No appreciable JVD ABDOMEN: Nondistended EXTREMITIES: Without any cyanosis NEUROLOGIC: CN II - XII grossly intact PSYCHIATRIC: Appropriate affect, not responding to internal stimuli Labs: I have reviewed the patient's labs within the last 24 hrs. Significant findings are: Latest Reference Range & Units 01/31/25 23:19 02/02/25 04:35 02/03/25 05:03 02/04/25 05:07 Thyroid Stimulating Hormone, 3rd Gen. IU/mL <0.005 (L) Free T4 ng/dL 5.01 (H) 5.57 (H) 4.09 (H) 4.43 (H) T3, Total ng/dL 309.0 (H) 274.0 (H) 241.0 (H) 242.0 (H) Latest Reference Range & Units 02/03/25 05:03 02/04/25 05:07 Alkaline Phosphatase 9 - 122 U/L 73 99 Alanine Aminotransferase (ALT) 10 - 35 U/L 34 56 (H) Aspartate Aminotransferase (AST) 10 - 35 U/L 22 117 (H) Latest Reference Range & Units 02/03/25 05:03 02/04/25 05:07 ANC (Abs Neutrophil Count) 2.00 - 7.60 x 1000/??L 3.35 4.54 Diagnostics: I have reviewed the patient's Radiology report(s) within the last 48 hrs. Andi Hassan MD Endocrine Fellow Cosigned by Pedro Nichole MD at 02/04/2025 2:36 PM EST Associated attestation - Pedro Nichole MD - 02/04/2025 2:36 PM EST I have seen and evaluated Paul Estrella and reviewed her history, exam and available test results with Dr. Hassan. I agree with the assessment and recommendations outlined in their note with any additions noted below. She is feeling better but not at baseline. HR adequately controlled on current dose of propranolol. Mild tremor on exam. Diffuse goiter noted. Skin warm and dry. Despite increase in PTU dose yesterday, free T4 did not improve compared to yesterday. Transaminases have increased. As a result, would recommend transitioning to methimazole 20 mg twice daily and check labs (free T4, total T3, and liver function tests) tomorrow. She asked about alternate treatment options. We briefly discussed radioiodine and surgery. Neither would be recommended at this time given thyroid hormone level still markedly elevated. After dismissal, she plans to follow up here at [place] for ongoing care for Graves disease. Pedro Nichole MD * Emanuel Albarado MD - 02/04/2025 8:42 AM EST Images from the original note were not included. [facility] Medicine Service Resident Inpatient Transfer Note Patient: Paul Estrella, a 39 y.o. female Attending Provider: Uriel Kaplan MD Admission Date: 01/31/2025 Hospital Day: Hospital Day: 5 Admission Diagnosis: Graves disease [E05.00] Hyperthyroidism [E05.90] Nephrolithiasis [N20.0] Mediastinal mass [J98.59] Acute cystitis with hematuria [N30.01] Right nephrolithiasis [N20.0] Malnutrition, unspecified type (HC Code) [E46] ID Paul Estrella is a 39 y.o. female with hx anxiety, hyperthyroid 2020 (not on tx) c/b recent dx Graves disease w associated anterior mediastinal mass, R>L nephrolithiasis s/p recent OSH admission for thyroid storm p/f worsening Graves and R flank pain Interval Yesterday: - some sediment with gross hematuria overnight -pain improved throughout day, okay for discharge per endo perspective - Will try to stick to only p.o. pain regimen tomorrow Overnight: NAEO Today: Attempting to stick to p.o. pain regimen though states that her pain was 10/10 at times lastnight with relief to 7/10 following oxy 10 dose. Continues to have occasional gross hematuria. Denies palpitations/chest pain/other overt symptoms of hyperthyroidism Objective Current Medications: Scheduled: Current Facility-Administered Medications Medication Dose Route Frequency Provider Last Rate Last Admin acetaminophen (TYLENOL) tablet 975 mg 975 mg Oral Q8H Chris Gardiner MD 975 mg at 02/04/25 0512 enoxaparin (LOVENOX) syringe 40 mg 40 mg Subcutaneous Daily Manjinder Maguire MD 40 mg at 02/04/25 0814 magnesium sulfate in water 2 gram/50 mL (4 %) (IVPB) 2 g 2 g Intravenous Once Emanuel Albarado MD multivitamin with folic acid (THERAGRAN) tablet 1 tablet 1 tablet Oral Daily Manjinder Maguire MD1 tablet at 02/03/25 0808 propranoloL (INDERAL) Immediate Release tablet 40 mg 40 mg Oral Q8H Dontae Rodriguez MD 40 mg at 02/04/25 0814 propylthiouraciL (PTU) tablet 150 mg 150 mg Oral 3 times daily Bailey Persaud MD 150 mg at 02/04/25 0814 tamsulosin (FLOMAX) 24 hr capsule 0.4 mg 0.4 mg Oral Nightly Dontae Rodriguez MD 0.4 mg at 02/03/252008 PRN: diazePAM, HYDROmorphone, hydrOXYzine, metoclopramide HCl OR metoclopramide, morphine, oxyCODONEOR oxyCODONE, phenazopyridine, polyethylene glycol Continuous: Allergies: is allergic to ceftriaxone and iodinated contrast media. Vitals (Last 24 Hrs): Temp: [97.6 ??F (36.4 ??C)-98.9 ??F (37.2 ??C)] 97.9 ??F (36.6 ??C) Pulse: [70-89] 75 Resp: [18] 18 BP: (96-106)/(61-72) 98/63 SpO2: [95 %-99 %] 99 % Device: room air Wt Readings from Last 3 Encounters: 02/03/25 71.8 kg I/O's (Last 24 Hrs): Gross Totals (Last 24 hours) at 02/04/2025 0842 Last data filed at 02/04/2025 0300 Intake 800 ml Output 350 ml Net 450 ml Physical Exam: General: Appears stated age, NAD HEENT: Normocephalic, atraumatic. EOMI CV: Regular rate and rhythm, S1/S2 present, no appreciable murmurs, rubs, or gallops. Pulm: Non-labored breathing, lungs clear bilaterally anteriorly, no wheezes, crackles, or rhonchi Abd: Bowel sounds present. Soft, non-tender, non-distended abdomen without guarding or rebound tenderness. Ext: Warm and perfused, no LE pitting edema, no clubbing or cyanosis Neuro: A&Ox4. CN II-XII grossly intact. Skin: No rashes, lesions. Psych: Appropriate thought content and speech. Diagnostic Studies CBC/BMP: Recent Labs Lab 02/01/25 0623 02/02/25 0435 02/03/25 0503 02/04/25 0507 WBC 7.7 7.6 7.2 8.3 HGB 12.0 11.9 11.7 11.2* PLT 312 284 263 277 NA 140 140 138 138 K 3.5 3.9 4.2 4.2 CO2 24 23 25 25 ANIONGAP 11 11 10 9 BUN 7 9 14 7 CREATININE 0.55 0.48 0.60 0.52 Lytes, Coags, LFTs: Recent Labs Lab 02/01/25 0623 02/02/25 0435 02/03/25 0503 02/04/25 0507 CALCIUM 9.5 9.5 9.5 9.4 MG -- -- 1.8 1.6* PHOS -- -- 5.1* 4.2 BILITOT -- -- 0.4 0.4 BILIDIR -- -- 0.2 0.2 ALT -- -- 34 56* AST -- -- 22 117* ALBUMIN 3.8 -- 3.4* 3.5* Glucose Trend: Recent Labs Lab 01/31/25 2319 02/01/25 0623 02/02/25 0435 02/03/25 0503 02/04/25 0507 GLU 109* 114* 94 101* 97 Troponins: No results for input(s): TROPONINT in the last 168 hours. pHart: No results for input(s): PHART , LET5KVM , PO2ART , EPE0CUI , L6OMVIOX , LITERFLOW inthe last 168 hours. COVID Monitoring: Lab Results Component Value Date SARSCOV2 Not Detected 01/26/2025 Imaging/Monitors Radiology No results found. No results found. Cardiac EKG: Results for orders placed or performed during the hospital encounter of 01/31/25 EKG Result Value Ref Range Heart Rate 105 bpm QRS Interval 77 ms QT Interval 331 ms QTC Interval 439 ms P [place] 29 deg QRS [place] 37 deg T Wave [place] 57 deg P-R Interval 129 msec SEVERITY Borderline ECG severity TTE:No results found for this or any previous visit. Micro: Ucx 02/02- <10k CFU Impression Paul Estrella is a 39 y.o. 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 Later transitioned to PTU as free T4 levels remained >7 with methimazole. Also treated with propranolol and cholestyramine. By discharge her fT4 improved to 4.46. Cholestyramine was discontinued. Could not obtain PTU outpatient, now returning w/ worsening Graves. -appreciate Endo recs - Switch PTU 150 mg t.i.d. to methimazole 20 mg b.i.d. given transaminitis as per below - Continue with daily free T4, total T3, and LFTs -c/w propranolol 40 mg TID. Titrate to goal HR<90. Hold if heart rate <50 or SBP <90 -Avoid iodinated contrast as it can worsen hyperthyroidism. -c/w diazepam BID PRN, atarax q6h PRN for anxiety #R nephrolithiasis s/p ureteral stent #Duplicated R collecting system, partial 2 stones in the right UPJ w/theoretical intermittent obstruction on renal u/s. S/p right ureteral stent 02/02. With ongoing right flank pain and occasional passage of stones. -Appreciate Uro recs -flomax 0.4mg nightly -pain control -oxy 5mg q4h PRN for mod pain -oxy 10mg q4h PRN for severe pain -STOP dilaudid 1mg IV q6h PRN for breakthrough in preparation for discharge in coming days -miralax PRN (given patient has diarrhea iso hyperthyroidism) - pyridium 200mg TID - Tylenol 975 mg q8h - can consider holding if transaminitis continues to worsen -Strain all urine #Dysuria Pyuria on recent UA, no clear evidence of infection. S/p levofloxacin IV at OSH, cipro PO BID here,since discontinued given no symptoms 02/02. Urology says no indication for abx after stent. Report of CTX allergy. Ucx with <10k CFU. Patient reporting some dysuria today, though can be better explained by passage of stones. 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 LDH only slightly elevated, uric acid normal. HIV negative. Flow sent at OSH. 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 -f/u GALA, flow cytometry - On Discharge -repeat chest imaging in 6mo after euthyroidism (or sooner if symptoms of local progression) If< 50% regression of the mass, biopsy or thymectomy should be reconsidered to r/o malignancy. 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 Cosigned by Uriel Kaplan MD at 02/04/2025 12:17 PM EST Associated attestation - Uriel Kaplan MD - 02/04/2025 12:17 PM EST I agree with the note as is documented below. Patient was seen and examined by me today. Case and plan was discussed with Dr. Albarado. Paul Estrella is a 39-year-old female who was admitted with multiple active issues including but not limited to symptomatic hyperthyroidism iso inadequately-treated Graves' disease (TSI+; presently on PTU 2/2 inadequate response to methimazole, and propranolol) and ongoing right flank pain and nause a iso nephrolithiasis (more sizable stones on the right with adjacent pelviectasis) now s/p cystoscopy with placement of a right ureteral stent (02/02). 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 We are following TFTs including free T4 and total T3, which appear to be responding (though plateaued 02/04) to the aforementioned regimen, while adjusting the propranolol fora HR goal < 90 (being mindful of some softer BPs and transient bradycardia noted as well; HR control presently good). It is noted that her LFTs uptrended on 02/04; we appreciate endocrinology's input as it pertains to the PTU and we will continue to follow his labs, including thyroid function studies, BMP, LFTs, and CBC in the interim. We are continuing the newly-started tamsulosin and following urinary output (straining urine for stones), labs, and symptoms. 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 As such, she should have repeat chest imaging within 3-6 months after achievement of euthyroidism, at which time a biopsy would be indicated if there is less than a 50% regression in size noted. Follow closely for constip ation in the setting of opioid use, reduced mobility, and reduced PO intake/hydration, etc.; we will titrate her bowel regimen accordingly. Medical decision making for this patient was moderate. I spent 35 minutes today on this encounter before, during, and after the visit, reviewing labs and records, evaluating and examining the patient, entering orders and documenting the visit. Electronic Signature Uriel Kaplan MD 02/04/25 12:05 PM * Emanuel Albarado MD - 02/03/2025 8:06 AM EST Images from the original note were not included. [facility] Medicine Service Resident Inpatient Transfer Note Patient: Paul Estrella, a 39 y.o. female Attending Provider: Uriel Kaplan MD Admission Date: 01/31/2025 Hospital Day: Hospital Day: 4 Admission Diagnosis: Graves disease [E05.00] Hyperthyroidism [E05.90] Nephrolithiasis [N20.0] Mediastinal mass [J98.59] Acute cystitis with hematuria [N30.01] Right nephrolithiasis [N20.0] Malnutrition, unspecified type (HC Code) [E46] ID Paul Estrella is a 39 y.o. female with hx anxiety, hyperthyroid 2020 (not on tx) c/b recent dx Graves disease w associated anterior mediastinal mass, R>L nephrolithiasis s/p recent OSH admission for thyroid storm p/f worsening Graves and R flank pain Interval Yesterday: -zofran doesn't work; reglan for nausea -declined oxy PO as vomiting; gave IV toradol -pt confirmed urticarial allergy to CTX and contrast Overnight: NAEO Today: Endorsing some right flank pain similar to yesterday in intensity but better than days prior. States she passed some stones overnight with associated hematuria, which was severely painful. Doing better this morning Objective Current Medications: Scheduled: Current Facility-Administered Medications Medication Dose Route Frequency Provider Last Rate Last Admin acetaminophen (TYLENOL) tablet 975 mg 975 mg Oral Q8H Chris Gardiner MD 975 mg at 02/02/252107 enoxaparin (LOVENOX) syringe 40 mg 40 mg Subcutaneous Daily Manjinder Maguire MD 40 mg at 02/01/25 0818 multivitamin with folic acid (THERAGRAN) tablet 1 tablet 1 tablet Oral Daily Manjinder Maguire MD1 tablet at 02/02/25 0813 propranoloL (INDERAL) Immediate Release tablet 40 mg 40 mg Oral Q8H Dontae Rodriguez MD 40 mg at 02/02/25 2319 propylthiouraciL (PTU) tablet 150 mg 150 mg Oral 3 times daily Bailey Persaud MD tamsulosin (FLOMAX) 24 hr capsule 0.4 mg 0.4 mg Oral Nightly Dontae Rodriguez MD 0.4 mg at 02/02/252107 PRN: diazePAM, HYDROmorphone, hydrOXYzine, metoclopramide HCl OR metoclopramide, morphine, oxyCODONEOR oxyCODONE, polyethylene glycol Continuous: Allergies: is allergic to ceftriaxone and iodinated contrast media. Vitals (Last 24 Hrs): Temp: [96.1 ??F (35.6 ??C)-99.2 ??F (37.3 ??C)] 99 ??F (37.2 ??C) Pulse: [68-95] 92 Resp: [13-20] 18 BP: (95-138)/(54-82) 104/67 SpO2: [96 %-100 %] 98 % Device: room air Wt Readings from Last 3 Encounters: 02/02/25 67.9 kg I/O's (Last 24 Hrs): Gross Totals (Last 24 hours) at 02/03/2025 0807 Last data filed at 02/02/2025 2320 Intake 340 ml Output 100 ml Net 240 ml Physical Exam: General: Appears stated age, NAD HEENT: Normocephalic, atraumatic. EOMI CV: Regular rate and rhythm, S1/S2 present, no appreciable murmurs, rubs, or gallops. Pulm: Non-labored breathing, lungs clear bilaterally anteriorly, no wheezes, crackles, or rhonchi Abd: Bowel sounds present. Soft, non-tender, non-distended abdomen without guarding or rebound tenderness. Ext: Warm and perfused, no LE pitting edema, no clubbing or cyanosis : Unable to assess for CVA tenderness given pain Neuro: A&Ox4. CN II-XII grossly intact. Skin: No rashes, lesions. Psych: Appropriate thought content and speech. Diagnostic Studies CBC/BMP: Recent Labs Lab 01/31/25231802/01/2562202/02/25 0435 02/03/25 0503 WBC 8.3 7.7 7.6 7.2 HGB 13.5 12.0 11.9 11.7 PLT 366 312 284 263 NA 140 140 140 138 K 4.0 3.5 3.9 4.2 CO2 21 24 23 25 ANIONGAP 16 11 11 10 BUN 11 7 9 14 CREATININE 0.47 0.55 0.48 0.60 Lytes, Coags, LFTs: Recent Labs Lab 01/31/25231802/01/2562202/02/25 0435 02/03/25 0503 CALCIUM 9.8 9.5 9.5 9.5 MG 1.7 -- -- 1.8 PHOS 4.1 -- -- 5.1* BILITOT 0.3 -- -- 0.4 BILIDIR 0.1 -- -- 0.2 ALT 21 -- -- 34 AST 37* -- -- 22 ALBUMIN 4.3 3.8 -- 3.4* Glucose Trend: Recent Labs Lab 01/31/25231802/01/2562202/02/25 0435 02/03/25 0503 GLU 109* 114* 94 101* Troponins: No results for input(s): TROPONINT in the last 168 hours. pHart: No results for input(s): PHART , RWG3TLU , PO2ART , HBZ8CEY , K4SGGDII , LITERFLOW inthe last 168 hours. 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 Report initiated by: Dick Madrigal MD Reported and signed by: Ana M Moreira MD [facility] No results found. Cardiac EKG: Results for orders placed or performed during the hospital encounter of 01/31/25 EKG Result Value Ref Range Heart Rate 105 bpm QRS Interval 77 ms QT Interval 331 ms QTC Interval 439 ms P [place] 29 deg QRS [place] 37 deg T Wave [place] 57 deg P-R Interval 129 msec SEVERITY Borderline ECG severity TTE:No results found for this or any previous visit. Impression Paul Estrella is a 39 y.o. female with hx anxiety, Graves disease w associated anterior mediastinalmass, R>L nephrolithiasis p/w Graves thyroiditis and R flank pain s/p R ureteral stent Plan #Graves disease Initially treated at OSH with methimazole up to 30 mg TID. Later transitioned to PTU as free T4 levels remained >7 with methimazole. Also treated with propranolol and cholestyramine. By discharge her fT4 improved to 4.46. Cholestyramine was discontinued. Could not obtain PTU outpatient, now returning w/ worsening Graves. -appreciate Endo recs -increase PTU to 150mg TID - clarify - repeat free T4, total T3, and LFTs tomorrow -c/w propranolol 40 mg TID. Titrate to goal HR<90. -daily LFTs, CBC -Avoid iodinated contrast as it can worsen hyperthyroidism. -c/w diazepam BID PRN, atarax q6h PRN for anxiety #R nephrolithiasis s/p ureteral stent #Duplicated R collecting system, partial 2 stones in the right UPJ w/theoretical intermittent obstruction on renal u/s. S/p right ureteral stent 02/02. With ongoing right flank pain and occasional passage of stones. -Appreciate Uro recs -flomax 0.4mg nightly -pain control -oxy 5mg q4h PRN for mod pain -oxy 10mg q4h PRN for severe pain -dilaudid 1mg IV q6h PRN for breakthrough -miralax PRN (given patient has diarrhea iso hyperthyroidism) - pyridium 200mg TID prn -Strain all urine #Poor p.o. intake Patient with poor p.o. intake in last few days, likely in the setting of pain. - We will monitor p.o. intake throughout the day. If persistently low can consider maintenance IV fluids as this will also likely help with renal perfusion and passage of stones #Pyuria Pyuria on recent UA, no clear evidence of infection. S/p levofloxacin IV at OSH, cipro PO BID here,since discontinued given no symptoms 02/02. Urology says no indication for abx after stent. Report of CTX allergy. 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 LDH only slightly elevated, uric acid normal. HIV negative. Flow sent at OSH. 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 -f/u GALA, flow cytometry -repeat chest imaging in 6mo after euthyroidism (or sooner if symptoms of local progression) If< 50% regression of the mass, biopsy or thymectomy should be reconsidered to r/o malignancy. #Hospital Checklist: Activity: OOB as tolerated PT/OT: Ongoing DVT Px: lovnox ppx Code: FULL CODE Access: PIV Diet: Regular Fluids: None Barriers to Dispo: Pending pain ctrl, thyroiditis Communication Primary Emergency Contact: Jose Estrella Signed: Emanuel Albarado MD PGY-3, Internal Medicine Reachable via [facility] Please await attending attestation and addendum to follow. Cosigned by Uriel Kaplan MD at 02/03/2025 2:51 PM EST Associated attestation - Uriel aKplan MD - 02/03/2025 2:51 PM EST I agree with the note as is documented below. Patient was seen and examined by me today. Case and plan was discussed with Dr. Albarado. Paul Estrella is a 39-year-old female who was admitted with multiple active issues including but not limited to symptomatic hyperthyroidism iso inadequately-treated Graves' disease (TSI+; presently on PTU 2/2 inadequate response to methimazole and propranolol) and right flank pain and nausea iso nep hrolithiasis (more sizable stones on the right with adjacent pelviectasis) now s/p cystoscopy with placement of a right ureteral stent (02/02). We appreciate the subspecialty teams' (including endocrinology, urology, and medical oncology) efforts/recs. We are following TFTs including free T4 and total T3, which appear to be responding nicely to the aforementioned regimen, while adjusting the propr anolol for a HR goal < 90 (being mindful of some softer BPs and transient bradycardia noted as well). We are continuing the newly-started tamsulosin and following urinary output (straining urine for stones), labs, and symptoms. 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 As such, she should have repeat chest imaging 6 months after achievement of euthyroidism, at which time a biopsy would be indicated if there is less than a 50% regression in size noted. Medical decision making for this patient was high. I spent 35 minutes today on this encounter before, during, and after the visit, reviewing labs and records, evaluating and examining the patient, entering orders and documenting the visit. Electronic Signature Uriel Kaplan MD 02/03/25 2:48 PM * Quentin Bartlett MD - 02/03/2025 6:07 AM EST Images from the original note were not included. Urology Progress Note Hospital Day: 4 Subjective/Interim Events - NAEON - AF HDS - Pain well controlled, improved after stent placement - 100cc recorded - AM labs WBC 7.2 (7.6) Hgb 11.7 (11.9) Cr 0.6 (0.48) Objective: Vital signs in last 24 hours: Temp: [96.1 ??F (35.6 ??C)-99.2 ??F (37.3 ??C)] 98 ??F (36.7 ??C) Pulse: [51-95] 69 Resp: [13-20] 18 BP: (91-138)/(54-82) 98/62 SpO2: [96 %-100 %] 100 % Device: room air I/O last 3 completed shifts: In: 100 [P.O.:100] Out: 100 [Urine:100] Physical Exam: GEN: Awake, alert, NAD CV: RR. CTAB PULM: Normal inspiratory effort on RA ABD: Soft, ND, NTTP : voiding spontaneously EXT: wwp Patient exam or treatment required medical carder blankets. The sensitive parts of the examination were performed with carder blankets present: Yes; Fretted String Instrument Repairer Name, Role/Title: Dr. Cobb Labs: Imaging: No results found. Assessment/Plan: Pt is a 39 y.o. female with PMH recently diagnosed hyperthyroidism, anterior mediastinal mass, R-sided kidney stone, and moderate malnutrition who presents with nausea, tremulousness, significant anxiety, and palpitations iso inadequately treated Grave's disease, as well as R flank pain with nonobst ructing stones. It is unclear if her flank pain is truly from the stones as they are not clearly obstructing, but given the duration of her pain and improvement in her thyroid status and overall clincial status, we placed a R ureteral stent for renal decompression. Her pain is improved. She will need a second operation to treat the right renal stones, to be arranged at time of DC. - Pain control, stent colic meds: flomax 0.4mg daily, oxybutynin IR 5mg prn for bladder spasms, pyridium 200mg TID prn - Reach out to Urology at time of DC to arrnage follow up for definitive stone management. - Please reach out to Urology with questions or concerns Signed: Quentin Bartlett MD Urology Resident Cosigned by Rodriguez Shukla MD at 02/08/2025 8:04 AM EST * Dontae Rodriguez MD - 02/02/2025 1:12 PM EST Images from the original note were not included. [facility] [place] Hospital Medicine Service Attending Provider: Dontae Rodriguez MD Location: [facility] [facility] Day #1 Subjective complains of pain but otherwise ok Patient seen and examined on 02/02/2025. CC: Graves disease Interim History: In significant pain overnight not controlled with PO Morphine Urology to take her for stent placement given pain Objective Vitals: Temp: [97.4 ??F (36.3 ??C)-98.3 ??F (36.8 ??C)] 97.4 ??F (36.3 ??C) Pulse: [51-99] 82 Resp: [18-20] 18 BP: (91-120)/(54-89) 104/76 SpO2: [97 %-100 %] 98 % Device: room air I/O's: No intake or output data in the 24 hours ending 02/02/25 1312 Physical Exam Constitutional: Appearance: Normal appearance. Pulmonary: Effort: Pulmonary effort is normal. Breath sounds: Normal breath sounds. Abdominal: General: Abdomen is flat. Palpations: Abdomen is soft. Musculoskeletal: Comments: R. Flank tenderness Neurological: Mental Status: She is alert. Labs: CBC Last 24hrs: WBC/Hgb/Hct/Plts: 7.6/11.9/35.00/284 (02/02 043) Lytes Last 24hrs: Na/K/Cl/CO2: 140/3.9/106/23 (02/02 0435) Peripheral Access: Periph IV 02/02/25 1217 dorsum left arm [id number] catheter system 20 gauge Nurse (Active) Imaging: MRI Chest w wo IV Contrast Result Date: 02/01/2025 MRI CHEST W WO IV CONTRAST Date: 02/01/2025 2:01 PM INDICATION: 39F PMH Graves evaluation for anterior mediastinal mass premedication per primary team COMPARISON: Outside facility CT chest, abdomen, and pelvis dated 01/26/2025 viewed on [facility]. TECHNIQUE: Multiplanar, multisequence MR imaging of the chest was performed before and after administration of IV contrast. . 14 mL gadoterate meglumine (DOTAREM) 0.5 mmol/mL (376.9 mg/mL) injection was intravenously administered. Postprocessed subtraction images are also included. FINDINGS: Mediastinum: Pyramidal-shaped anterior mediastinal mass demonstrating isointense signal on the T1-weighted precontrast images, intermediate bright signal on the T2-weighted and T2 weighted fat saturation images. It demonstrates loss of signal intensity on [id number]-br-zwlvd imaging with signal intensity index of 11.6%. Post contrast subtraction images demonstrate possible mild enhancement (motion artifact). Lungs/Pleura : No consolidations. No mass lesion. MR technique limits evaluation for small pulmonary nodules. No pleural effusion. Lymph nodes: No thoracic adenopathy. Enlarged heterogeneous thyroid. Heart and Vessels: Normal cardiac size. No pericardial effusion. Normal course and caliber of the thoracic aorta. Pulmonary artery is normal size. Upper Abdomen: Visualized portion of the abdominal organs are unremarkable. Bones and soft tissues: No aggressive bone lesions. Susceptibility from hardware in the right shoulder. Bilateral breast implants. 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 Report initiated by: Dick Madrigal MD Reported and signed by: Ana M Moreira MD [facility] I reviewed lab results, microbiology, and imaging in formulating this patient's plan of care. Assessment: 39yo woman c past hx of anxiety, hyperthyroidism, medullary sponge kidney, nephrolithiasis s/p lithotripsy and ureteral stenting with recent diagnosis of Thyroid storm who presents from for 2nd opinion for Anterior mediastinal Mass evaluation. Plan: Hyperthyroidism During her admission at [facility], patient was initially started on MMI but she remained symptomaticand her free T4 was not appropriately declining despite 30mg TID; she was thus switched to PTU on 01/25, initially 50mg q6h and ultimately discharged on 100mg TID but pt unable to tack picker prescription. Free T4 5.01 higher than T4 that she was discharged with Pt complaining of anxiety, palpitations, tremor, unintentional weight loss, and double vision. Free T4 worsening today Plan - continue PTU 100mg TID - Decreased propranolol 40mg TID due to hypotension, titrate to goal HR <90 - Monitor daily FT4, TT3 while patient is admitted Bilateral Non-obstructing Renal stones with R. CVA tenderness US: partially duplicated right collecting system. There are no obstructing stones, but there is slight pelviectasis of the lower pole moiety where there 2 stones near the UPJ which theoretically could be intermittently obstructing. Urology following Plan - NPO after MN today for stent placement - continue Flomax - Pain control with Morphine PO + Breakthrough Dilaudid IV - strain all urine - continue Cipro for now given UA findings Thymic Hyperplasia HIV - negative MRI - Thymic Hyperplasia Plan - Oncology recs - can follow up as OP in 6 mos for repeat MRI once pt is euthyroid - Could not see flow cytometry results in [facility] might need to call Anxiety- continue prn alprazolam, prn hydroxyzine Code: Full Code Diet: Regular diet VTE PPx: VTE - pharmacologic prophylaxis: LMW heparin Dispo: Likely home Emergency Contact: (Spoke to him at bedside) Discharge Readiness: AM-PAC (RN/PT): / Expected discharge location: Home Barrier(s) to discharge: stable Thyroid levels Communication: Family: at bedside, RN, and Consultants Full Code Medical decision making for this patient was moderate. Signed: Dontae Rodriguez MD Hospitalist Attending [facility] Contact via [employer] Secure chat DISCLAIMER: This note was generated in part using voice recognition software, occasional wrong-wordor [id number]-[id number] substitutions may have occurred due to the inherent limitations of voice recognition software. Read the chart carefully and recognize, using context, where the substitutions have occurred. Although every effort was made to edit the content, rod pointer and typing errors may occur. Please contact me if clarification of content is felt warranted. All due diligence and care undertaken in caring for this patient. Please review chart with your PCP after discharge for important information. * Quentin Bartlett MD - 02/02/2025 6:16 AM EST Images from the original note were not included. Urology Progress Note Hospital Day: 3 Subjective/Interim Events - NAEON - AF HDS - Pain well controlled - NPO for possible intervention - UOP not recorded - AM labs WBC 7.6 (7.7) Hgb 11.9 (12.0) Cr 0.48 (0.55) Objective: Vital signs in last 24 hours: Temp: [97.6 ??F (36.4 ??C)-98.3 ??F (36.8 ??C)] 97.6 ??F (36.4 ??C) Pulse: [61-104] 61 Resp: [18-20] 18 BP: (95-120)/(55-89) 95/55 SpO2: [97 %-100 %] 99 % No intake/output data recorded. Physical Exam: GEN: Awake, alert, NAD CV: RR. CTAB PULM: Normal inspiratory effort on RA ABD: Soft, ND, NTTP : voiding spontaneously EXT: wwp Patient exam or treatment required medical carder blankets. The sensitive parts of the examination were performed with carder blankets present: Yes; Fretted String Instrument Repairer Name, Role/Title: Dr. 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 Report initiated by: Dick Madrigal MD Reported and signed by: Ana M Moreira MD [facility] Assessment/Plan: Pt is a 39 y.o. female with PMH recently diagnosed hyperthyroidism, anterior mediastinal mass, R-sided kidney stone, and moderate malnutrition who presents with nausea, tremulousness, significant anxiety, and palpitations iso inadequately treated Grave's disease, as well as R flank pain with nonobst ructing stones. It is unclear if her flank pain is truly from the stones as they are not clearly obstructing, but given the duration of her pain and improvement in her thyroid status and overall clincial status, we will likely add her on for a R ureteral stent for renal decompression. - Keep Npo for possible procedure - Pain control - Continue flomax - Will discuss adding on for R ureteral stent, pending discussion with attending Signed: Quentin Bartlett MD Urology Resident Cosigned by Rodriguez Shukla MD at 02/02/2025 12:04 PM EST Associated attestation - Rodriguez Shukla MD - 02/02/2025 12:04 PM EST I saw and evaluated the patient, Ivete Delores. I agree with the findings and the plan of care as documented in the Resident note. Of note the patient is a 39F with history of R nephrolithiasis, persistent flank pain without other clear cause. I reviewed her CT images from [facility] dated 01/26/2025through [facility]. There are right renal calculi with adjacent pelviectasis. Left sided stones noted. No clear evidence of R hydronephrosis demonstrated at the time although stones appear near pelvis. Discussed risks, benefits, alternatives. Will proceed with cystoscopy and R ureteral stent placement.Absolute need for stent removal due to risks of encrustation reviewed as well as need for subsequent stone procedure. documented in this encounter H&P Notes * Manjinder Maguire MD - 02/01/2025 5:33 AM EST [facility] Medicine Hospitalist Attending History & Physical History provided by: the patient, records History limited by: no limitations Subjective: Chief Complaint: Unable to obtain her PTU prescription HPI: Patient is a 39yo woman c past hx of anxiety, hyperthyroidism, medullary sponge kidney, nephrolithiasis s/p lithotripsy and ureteral stenting, presented to [facility] with possible thyroidstorm and renal colic for which transferred to [facility] on 01/20 where found to have 1) hyperthyroidism attributed to thyroiditis in setting of Graves disease for which initially given methimazole but inadequate so switched to PTU, 2) renal colic with obstructing 0.7cm and 0.8cm R renal calculi but repeat imaging later in admission showed non-obstructing L nephrolithiasis, 3) possible UTI on UA but unrevealing urine culture so course of levofloxacin stopped, 4) anterior mediastinal mass that suspected thymic hyperplasia in the setting of Graves disease and w/u including GALA/ flow cytometry/ HIV sent with plan for chest MRI, 5) hypertension and palpitations raising concern for pheochromocytoma with plasma metanephrines sent, 6) moderate malnutrition, discharged on 01/30 but unableto find pharmacy that carries PTU and wanting second opinion for which now presents to [facility] ED. [place] night sweats, chest tightness, mild dyspnea, palpitations, intermittent blurred vision, sharp R abdominal and flank pain similar to past renal colic, nausea c emesis, and dysuria. Denies fever/ chills, headache, cough, diarrhea/ bpr, hematuria/ frequency, rash, and all other ROS negative. ED course: 97.8, 112 --> 97, 18, 125/85, given dilaudid 0.5mg IV x2, zofran 4mg IV, propranolol 40mg PO, hydroxyzine 25mg PO x2, admitted for further management. 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 Social Drivers of Health Financial Resource Strain: Low Risk (01/21/2025) Received from [facility] Overall Financial Resource Strain (CARDIA) How hard is it for you to pay for the very basics like food, housing, medical care, and heating?: Not very hard Food Insecurity: No Food Insecurity (01/21/2025) Received from [facility] Hunger Vital Sign Within the past 12 months, you worried that your food would run out before you got the money to buymore.: Never true Within the past 12 months, the food you bought just didn't last and you didn't have money to get more.: Never true Transportation Needs: No Transportation Needs (01/21/2025) Received from [facility] PRAPARE - Transportation In the past 12 months, has lack of transportation kept you from medical appointments or from getting medications?: No In the past 12 months, has lack of transportation kept you from meetings, work, or from getting things needed for daily living?: No Physical Activity: Not on file Stress: No Stress Concern Present (12/06/2022) Received from [facility] [place] [facility] - Occupational Stress Questionnaire Feeling of Stress : Only a little Social Connections: Not on file Intimate Partner Violence: Unknown (11/17/2024) Received from [facility] Intimate Partner Violence Are you denied basic needs such as food, clothing, or medical care?: Deferred In the past 12 months have you been in a relationship with a person who hurts, threatens, or tries to control you?: Deferred Are you denied basic needs such as food, clothing, or medical care?: Deferred In the past 12 months have you been in a relationship with a person who hurts, threatens, or tries to control you?: Deferred Housing Stability: Low Risk (01/21/2025) Received from [facility] Housing Stability Vital Sign In the last 12 months, was there a time when you were not able to pay the mortgage or rent on time?: No In the past 12 months, how many times have you moved where you were living?: 0 At any time in the past 12 months, were you homeless or living in a fpc (including now)?: No Family History Problem Relation Age of Onset Thyroid cancer Mother Prior to Admission Medications Prescriptions Prior to Admission[3] Home medication list obtained from: complete Allergies Allergies[4] Review of Systems: Review of Systems: as per HPI Objective: Physical Exam: Vitals: BP (!) 148/79 Pulse (!) 97 Temp 97.9 ??F (36.6 ??C) (Oral) Resp 17 SpO2 100% Constitutional: pleasant middle aged woman, ill appearing Eyes: anicteric sclera ENMT: mmm, op clear Cardiovascular: tachycardic, rr, no m/r/g, no JVD Respiratory: cta b ant/ post GI: normal bowel sounds, abdomen soft, nt, nd : no suprapubic tenderness, no CVA tenderness Heme/ Lymph: wwp, lower extremities symmetric, no edema Neurologic: a+o x3, non-focal Psychiatric: normal affect Skin: no rash Pertinent Labs/Diagnostics: Labs: Wbc 8.3 BUN 11 Creatinine 0.47 Glucose 109 AST 37 Ca 9.8 Tsh <0.005 T3 309 FT4 5.01 UA: 41rbc, 35wbc, rare bacteria Diagnostics: US Renal Final Result There is redemonstration of dilatation of the proximal ureter of the lower pole , similar compared to outside CT examination. Redemonstration of bilateral renal calculi, in similar position compared to outside CT examination, as described above. The bilateral ureteral jets are visualized. [facility] Radiology Notify System Classification: Routine. 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 in setting of Graves disease for which initially given methimazole but inadequate so switched to PTU, 2) renal colic with obstructing 0.7cm and 0.8cm R renal calculi but repeat imaging later in admission showed non- obstructing L nephrolithiasis, 3) possible UTI on UA but unrevealing urine culture so course of levofloxacin stopped, 4) 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 Plan: 1. Hyperthyroidism: - resume PTU 100mg PO tid - continue propranolol 40mg PO tid - endocrinology consulted by the ED 2. R flank pain: known nephrolithiasis - f/u renal ultrasound done in ED - if small obstructing stone would start tamsulosin - start NS at 150mL/ hr x 1L - APAP 650mg PO q6h prn, tramadol 50mg PO q6h prn severe pain - urology consulted by the ED 3. UTI: dysuria, pyuria, bacteriuria - address nephrolithiasis as above - send urine culture - s/p recent course of levofloxacin, CTX allergy; start cipro 500mg PO bid 4. 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 Malnutrition at OSH: - check prealbumin, albumin - consider nutrition consult 6. Anxiety: - continue prn alprazolam, prn hydroxyzine 7. Medication reconciliation status: complete FEN: regular diet PPx: lovenox CODE: FULL Notifications: PCP: [facility] Primary Care Provider was notified of this admission. Not listed in [facility] Family was notified of this admission. No Plan discussed with patient and/or family. Yes Signed: Manjinder Maguire MD 02/01/2025 5:33 AM [1] Past Medical History: Diagnosis Date Anxiety Hyperthyroidism Medullary sponge kidney Nephrolithiasis [2] Past Surgical History: Procedure Laterality Date URETERAL STENT PLACEMENT [3] (Not in a hospital admission) [4] Allergies Allergen Reactions Iodinated Contrast Media Hives documented in this encounter Consult Notes * Franchesca Self PA - 02/03/2025 4:47 PM EST Images from the original note were not included. Medical Oncology Consult Note Assessment: Medical oncology consulted by Attending Provider: Uriel Kaplan MD [phone] and seen on 02/03/2025 for 39F presenting after recent admission at prior hospital, newwly diagnosed Graves disease and anterior mediastinal mass. Paul Estrella is a 39 y.o. 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 Graves disease, requiring methimazole, cholestyramine and PTU, as part of her workup, CT CAP 01/25 at OSH showed anterior mediastinalmass c/f abnormal thymic tissue with significant enlargement, trace bronchial wall thickening with mild bronchiectasis, up to 4mm pulmonary nodules, bilateral renal calculi and right ovary cyst (2.8cm) and US Thyroid 01/22 with heterogenous thyroid gland with increased vascularity suggesting thyroiditis, LD 314, Uric Acid 4.7 given cf thyroid emily decision was made to defer bx and repeat imagingin 3 months; who now presents to [facility] for second opinion, pain and inability to obtain outpatient meds. Oncology Consulted given c/f anterior mediastinal mass being malignant, however MRI Chest with c/w thymic hyperplasia which according to endo can be seen in uncontrolled Graves Disease. Plan: Given alternative diagnosis of anterior mediastinal mass, the medical oncology consult service willsign off without outpatient follow up with medical oncology. We would defer management of the thymic hyperplasia to endorcrine at this time and she should have repeat imaging in 3-6 months to be ordered/reviewed by endo or PCP to ensure improvement . --regarding other non-specific findings on CT CAP, She should also follow up with [facility] for ovarian cysts, Urology for stones and PCP for pulm nodules. She can be referred back to medical oncology at any time if clinical concern arises for malignancy but at this time given above, no medical oncology referral placed. Thank you for involving the Medical Oncology in the care of this patient. Recommendations were communicated to the primary team. We will sign off. Please reconsult if needed.. The above recommendations have been discussed with the attending, Dr. Eldridge. Subjective: History of Present Illness / Interval History: Reviewed imaging results with her and follow up plan. All questions/concerns answered at this time. Objective: Allergies: Allergies[1] Inpatient Scheduled Medications: Current Facility-Administered Medications Medication Dose Route Frequency Provider Last Rate Last Admin acetaminophen (TYLENOL) tablet 975 mg 975 mg Oral Q8H Chris Gardiner MD 975 mg at 02/03/25 1347 enoxaparin (LOVENOX) syringe 40 mg 40 mg Subcutaneous Daily Manjinder Maguire MD 40 mg at 02/03/25 0807 multivitamin with folic acid (THERAGRAN) tablet 1 tablet 1 tablet Oral Daily Manjinder Maguire MD1 tablet at 02/03/25 0808 propranoloL (INDERAL) Immediate Release tablet 40 mg 40 mg Oral Q8H Dontae Rodriguez MD 40 mg at 02/03/25 1547 propylthiouraciL (PTU) tablet 150 mg 150 mg Oral 3 times daily Bailey Persaud MD 150 mg at 02/03/25 1348 tamsulosin (FLOMAX) 24 hr capsule 0.4 mg 0.4 mg Oral Nightly Dontae Rodriguez MD 0.4 mg at 02/02/25 2108 Inpatient PRN Medications: diazePAM 2 mg Oral BID PRN HYDROmorphone 1 mg IV Push Q6H PRN hydrOXYzine 50 mg Oral Q6H PRN metoclopramide HCl 10 mg Oral Q6H PRN Or metoclopramide 10 mg IV Push Q6H PRN morphine 15 mg Oral Q6H PRN oxyCODONE 5 mg Oral Q4H PRN Or oxyCODONE 10 mg Oral Q4H PRN phenazopyridine 200 mg Oral TID PRN polyethylene glycol 17 g Oral DAILY PRN Vitals: Temp: [98 ??F (36.7 ??C)-99.2 ??F (37.3 ??C)] 98.8 ??F (37.1 ??C) Pulse: [69-95] 83 Resp: [18-20] 18 BP: (95-110)/(54-72) 99/66 SpO2: [95 %-100 %] 95 % Physical Exam: Physical Exam Constitutional: General: She is not in acute distress. Eyes: General: No scleral icterus. Pulmonary: Effort: Pulmonary effort is normal. No respiratory distress. Skin: Coloration: Skin is not jaundiced. Neurological: Mental Status: She is alert. Laboratory: I have reviewed the patient's studies within the last 24 hours. Lab Results Component Value Date WBC 7.2 02/03/2025 HGB 11.7 02/03/2025 HCT 33.00 (L) 02/03/2025 MCV 86.4 02/03/2025 PLT 263 02/03/2025 Lab Results Component Value Date CREATININE 0.60 02/03/2025 BUN 14 02/03/2025 NA 138 02/03/2025 K 4.2 02/03/2025 CL 103 02/03/2025 CO2 25 02/03/2025 Lab Results Component Value Date ALT 34 02/03/2025 AST 22 02/03/2025 ALKPHOS 73 02/03/2025 BILITOT 0.4 02/03/2025 Coverage: Weekdays: For questions regarding consult coverage for individual patients 8A- 5P, please contact the '[facility] Oncology Consult' Mobile Heartbeat. Weekend/Evening: Please refer to [employer]. Medical decision making for this patient was moderate. Signed: Franchesca Self PA-C 02/03/2025 4:58 PM Above plan d/w attending [1] Allergies Allergen Reactions Ceftriaxone Hives 6 mo ago at OSH per pt Iodinated Contrast Media Hives Confirmed per patient, >1 yr ago Cosigned by Marcus Eldridge MD at 02/09/2025 10:44 AM EST Associated attestation - Marcus Eldridge MD - 02/09/2025 10:44 AM EST Images from the original note were not included. Medical Oncology Physician / SALLIE MDM-Based Shared Visit I was asked to see Paul Estrella by Franchesca Self because of the complexity of medical decision making requiring physician involvement. Patient was personally seen and examined, and I discussed the case with the House Staff member, Clinical Fellow, advanced practice registered nurse or physician blood bank assistant who also saw and examined the patient. I agree with their findings except as noted below. MRI of the mediastinal mass are most consistent with thymic hyperplasia, a known potential sequelaeof Graves disease. Given this we do not feel that biopsy of the mass at this time as needed. However we recommend repeat imaging of the mass and 3-6 months to ensure that it is decreasing in size. Ifit is decreased less than 50% at six-month, biopsy at that point could be considered. Marcus Eldridge MD 02/09/2025 10:39 AM MDM Problems Addressed Minimal Low Moderate High [] 1 self-limited or minor problem [] 2 or more self-limited or minor problems; OR [] 1 stable, chronic illness; OR [] 1 acute, uncomplicated illness or injury OR [] 1 stable, acute illness; OR [] 1 acute, uncomplicated illness or injury requiring hospital inpatient or observation level of care [] 1 or more chronic illness with exacerbation, progression, or side effects of treatment OR [] 2 or more stable chronic illness OR [] 1 undiagnosed new problem with uncertain prognosis OR [x] 1 acute illness with systemic symptoms OR [] 1 acute complicated injury [] 1 or more chronic illness with severe exacerbation, progression, or side effects of treatment OR [] 1 acute or chronic illness or injury that poses a threat to life or bodily function MDM Risk Minimal Moderate High [] OTC drugs [] Minor surgery with no identified risk factors [] Prescription drug management [] Diagnosis or treatment significantly limited by social determinants of health [] Drug therapy requiring intensive monitoring for toxicity [] Decision regarding elective major surgery with identified patient or procedure risk factors [] Decision regarding emergency major surgery [] Decision regarding hospitalization or escalation of hospital-level care [] Decision not to resuscitate or to deescalate care because of poor prognosis [] Parenteral controlled substances NB: As of 2023, CMS considers the practitioner who spends >50% of the total time or performs thesubstantive part of medical decision making (MDM) to have performed the substantive portion and canbill for the shared visit. If billing based on MDM, neither clinician should document time. For initial consults, use inpatient consult service codes [id number]. For subsequent visits, use codes [id number]. * Bailey Persaud MD - 02/01/2025 11:14 AM ESTAssociated Order(s): INPATIENT/ED CONSULT TO ENDOCRINOLOGY, DIABETES & METABOLISM Images from the original note were not included. [facility] Endocrine Consult Note Consult Information: Endocrine Consultation requested by: Dontae Rodriguez MD Source of Information: Patient and EMR/Previous Record Impression: Paul Estrella is a 39 y.o. female admitted for hyperthyroidism in the setting of missed PTU doses. 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 Recommendations: -continue PTU 100mg TID -continue propranolol 60mg TID, titrate to goal HR <90 -monitor daily FT4, TT3 while patient is admitted Patient discussed with attending. Please refer to attending's addendum for final recommendations. Presentation History: CC: hyperthyroidism HPI: Paul Estrella is a 39 y.o. female with anxiety, hyperthyroidism, medullary sponge kidney, nephrolithiasis s/p lithotripsy and ureteral stenting, who was recently admitted to [facility] for hyperthyroidism attributed to thyroiditis in the setting of Graves Disease as well as renal colic with obstructing nephrolithiasis, now admitted to [facility] for symptomatic hyperthyroidism. Endocrinology consulted for management of hyperthyroidism. During her admission at [facility], patient was initially started on MMI but she remained symptomaticand her free T4 was not appropriately declining despite 30mg TID; she was thus switched to PTU on 01/25, initially 50mg q6h and ultimately discharged on 100mg TID. Of note, patient was also found to have a mediastinal mass and was recommended follow up with MRI. Patient was discharged on 01/30 but was unable to obtain PTU from her pharmacy so she presented to the [facility] ED. Patient stated that she was initially diagnosed with hyperthyroidism when she had trouble conceiving in [id number] but never received treatment for it. She stated that her mother had thyroid cancer and that she also has a history of type 1 DM in the family. PMHx/Medications/Allergies: PMHx: has a past medical history of Anxiety, Hyperthyroidism, Medullary sponge kidney, and Nephrolithiasis. PSurgHx: has a past surgical history that includes Ureteral stent placement. Medications: Prescriptions Prior to Admission[1] Family Hx: family history includes Thyroid cancer in her mother. Allergies: Allergies[2] Social: Social History reports that she has never smoked. She does not have any smokeless tobacco history on file. She reports that she does not use drugs. No history on file for alcohol use. Review of Systems: 12 point ROS completed and negative except as mentioned above. Endocrine Physical Exam: Vitals: Vitals: 01/31/25201301/31/25 2206 02/01/25 0537 02/01/25 0735 BP: 125/85 (!) 148/79 107/67 107/71 Pulse: (!) 112 (!) 97 (!) 92 (!) 104 Resp: 18 17 20 18 Temp: 97.6 ??F (36.4 ??C) 97.9 ??F (36.6 ??C) 98.4 ??F (36.9 ??C) 98.3 ??F (36.8 ??C) TempSrc: Temporal Oral Oral Oral SpO2: 100% 100% 100% 100% Endocrine Physical Exam: GENERAL: NAD HEENT: Head is normocephalic and atraumatic. No exophthalmos appreciated NECK: mildly enlarged thyroid LUNGS: Chest rise even and unlabored HEART:tachycardic ABDOMEN: Nondistended EXTREMITIES: Without any cyanosis NEUROLOGIC: CN II - XII grossly intact PSYCHIATRIC: Appropriate affect, not responding to internal stimuli Review of Labs/Diagnostics: Lab Review: I have reviewed the patient's pertinent labs. Significant findings are Component Ref Range & Units 01/31/25 11:19 PM Total Bilirubin <=1.2 mg/dL 0.3 Bilirubin, Direct <=0.2 mg/dL 0.1 Comment: Effective 11/26/2024 [facility] changed the Direct Bilirubin testing method from the Martha method to the Randox method. Alkaline Phosphatase 9 - 122 U/L 85 Alanine Aminotransferase (ALT) 10 - 35 U/L 21 Comment: Calcium dobesilate can cause artificially low ALT results at therapeutic concentrations Aspartate Aminotransferase (AST) 10 - 35 U/L 37 High Comment: Sample slightly hemolyzed. Results may be falsely elevated due to hemolysis. Component Ref Range & Units 01/31/25 11:19 PM Free T4 See Comment ng/dL 5.01 High Component Ref Range & Units 01/31/25 11:19 PM T3, Total See Comment ng/dL 309.0 High Component Ref Range & Units 02/01/25 6:23 AM Prealbumin 20.0 - 40.0 mg/dL 23.0 Diagnostic Review: I have reviewed the patient's pertinent Radiology report(s). Significant findings are Thyroid US 01/22/25: SIZE: Measurements of the thyroid lobes and nodules are given in sagittal, anteroposterior and transverse dimensions respectively. Right Thyroid Lobe: 5.7 x 1.9 x 2.3 cm, volume 13.3 mL. Parenchyma: The gland echotexture is heterogeneous. Thyroid vascularity is increased. Left Thyroid Lobe: 5.2 x 1.5 x 2.1 cm, volume 8.8 mL. Parenchyma: The gland echotexture is heterogeneous. Thyroid vascularity is increased. Isthmus: 0.2 cm in maximum AP dimension. Estimated total number of nodules greater than or equal to 1 cm: 0. NODES: No lymphadenopathy is seen in the tissue surrounding the thyroid gland. CT chest 01/22/25: 1. Anterior mediastinal mass concerning for abnormal thymic tissue with significant enlargement. Recommend correlation with MRI of the chest with and without intravenous contrast. Bailey Persaud MD Endocrine Fellow [1] (Not in a hospital admission) [2] Allergies Allergen Reactions Iodinated Contrast Media Hives Cosigned by Katina Vasquez MD at 02/01/2025 12:57 PM EST Associated attestation - Katina Vasquez MD - 02/01/2025 12:57 PM EST Endocrine Attending Addendum I have personally seen and evaluated Paul Estrella with our Endocrine Fellow, Dr. Persaud on 02/01/25. I have personally reviewed the patient's prior records, results and imaging and agree with the fellow's documented history, physical examination, assessment, and plan. In brief, this is a 39 y.o. female here for evaluation of Graves' hyperthyroidism. She also has medullary sponge kidney with recurrent nephrolithiasis who was recently dc'ed from for thyroid storm. She was transferred from [facility] to for ?thyroid storm and received high- dose MMI and steroids in that setting. At , she was switched to PTU and cholestyramine due to slow response to MMI. 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 She presents here as she was unable to tack picker her PTU Rx and wanted a second opinion regarding treatment of her thymic mass. She reports being told her thyroid levels were abnormal during a previous fertility evaluation but never had a formal diagnosis of thyroid disease until recently. Has also not been able to [facility] due to her recent hospitalization. Notes anxiety, palpitations, tremor, unintentional weight loss, and double vision. Has constipation and poor appetite. Has a family hx of T1D and mother had thyroid cancer but details of diagnosis/treatment are unclear. On exam, she is mildly tremulous with no obvious signs of THUAN. Skin is warm to touch and thyroid gland is 2x enlarged without nodules. In terms of management, recommend continuing the PTU dosing recommended at her recent discharge with close monitoring of serial TFTs, LFTs, and CBC. Of note, thymichyperplasia can be seen in uncontrolled Graves' disease. Katina Vasquez MD Clinical Informatics Directorinvestigations manager (Endocrinology) [employer] Electronically Signed by Katina Vasquez MD, February 01, 2025 * Franchesca Self PA - 02/01/2025 8:38 AM ESTAssociated Order(s): INPATIENT/ED CONSULT TO MEDICAL ONCOLOGY Images from the original note were not included. Medical Oncology Consult Note Assessment: Medical oncology consulted by Attending Provider: Dontae Rodriguez MD [phone] and seen on 02/01/25 for 39F presenting after recent admission at prior hospital, newwly diagnosed Graves disease and anterior mediastinal mass. Paul Estrella is a 39 y.o. 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 Graves disease, requiring methimazole, cholestyramine and PTU, as part of her workup, CT CAP 01/25 at OSH showed anterior mediastinalmass c/f abnormal thymic tissue with significant enlargement, trace bronchial wall thickening with mild bronchiectasis, up to 4mm pulmonary nodules, bilateral renal calculi and right ovary cyst (2.8cm) and US Thyroid 01/22 with heterogenous thyroid gland with increased vascularity suggesting thyroiditis, LD 314, Uric Acid 4.7 given cf thyroid emily decision was made to defer bx and repeat imagingin 3 months; who now presents to [facility] for second opinion, pain and inability to obtain outpatient meds. Plan: Inpatient Recommendations: --Awaiting MRI Chest --obtain LD, Uric Acid --Appreciate Endocrine involvement. --Pending MRI chest will need to determine if additional workup needed such as bx or further staging scans. Of note, had CT CAP at OSH. Outpatient Recommendations: --Pt preference would be for her care at [facility] if outpatient follow up needed. Thank you for involving the Medical Oncology in the care of this patient. Recommendations were communicated to the primary team. We will chart follow. Please call us with additional questions or concerns.. The above recommendations have been discussed with the attending, Dr. Eldridge. Subjective: History of Present Illness / Interval History: Chart and Nursing Note reviewed. Patient was discussed and examined with Attending. Upon exam this AM, patient appears in no acute distress. She reports that she has had palpitation for months but worsening in frequency as well as dyspnea with talking for a few weeks prior to admission. Also has right flank pain. Objective: Allergies: Allergies[1] Inpatient Scheduled Medications: Current Facility-Administered Medications Medication Dose Route Frequency Provider Last Rate Last Admin ciprofloxacin HCl (CIPRO) tablet 500 mg 500 mg Oral Q12H Manjinder Maguire MD 500 mg at 02/01/25 0609 enoxaparin (LOVENOX) syringe 40 mg 40 mg Subcutaneous Daily Manjinder Maguire MD 40 mg at 02/01/25 0818 ketorolac (TORadol) injection 15 mg 15 mg IV Push Once Xavier Duke MD multivitamin with folic acid (THERAGRAN) tablet 1 tablet 1 tablet Oral Daily Manjinder Maguire MD1 tablet at 02/01/25 0819 propranoloL (INDERAL) immediate release tablet 40 mg 40 mg Oral Q8H Brown Allred MD 40 mgat 02/01/25 0738 propylthiouraciL (PTU) tablet 100 mg 100 mg Oral 3 times daily Brown Allred MD 100 mg at104/03/24 0041 sodium chloride 150 mL/hr (02/01/25 0729) Inpatient PRN Medications: acetaminophen 650 mg Oral Q6H PRN ALPRAZolam 0.25 mg Oral TID PRN hydrOXYzine 50 mg Oral Q4H PRN traMADoL 50 mg Oral Q6H PRN Vitals: Temp: [97.6 ??F (36.4 ??C)-98.4 ??F (36.9 ??C)] 98.3 ??F (36.8 ??C) Pulse: [92-112] 104 Resp: [17-20] 18 BP: (107-148)/(67-85) 107/71 SpO2: [100 %] 100 % Physical Exam: Physical Exam Constitutional: General: She is not in acute distress. Eyes: General: No scleral icterus. Pulmonary: Effort: Pulmonary effort is normal. No respiratory distress. Skin: Coloration: Skin is not jaundiced. Neurological: Mental Status: She is alert. Laboratory: I have reviewed the patient's studies within the last 24 hours. Lab Results Component Value Date WBC 7.7 02/01/2025 HGB 12.0 02/01/2025 HCT 37.00 02/01/2025 MCV 87.9 02/01/2025 PLT 312 02/01/2025 Lab Results Component Value Date CREATININE 0.55 02/01/2025 BUN 7 02/01/2025 NA 140 02/01/2025 K 3.5 02/01/2025 CL 105 02/01/2025 CO2 24 02/01/2025 Lab Results Component Value Date ALT 21 01/31/2025 AST 37 (H) 01/31/2025 ALKPHOS 85 01/31/2025 BILITOT 0.3 01/31/2025 Coverage: Weekdays: For questions regarding consult coverage for individual patients 8A- 5P, please contact the '[facility] Oncology Consult' Mobile Heartbeat. Weekend/Evening: Please refer to QGenda. Medical decision making for this patient was moderate.case d/w primary team and endocrinology fellow. Signed: Franchesca Self PA-C 02/01/2025 3:54 PM Above plan d/w attending [1] Allergies Allergen Reactions Iodinated Contrast Media Hives Cosigned by Marcus Eldridge MD at 02/01/2025 8:13 PM EST Associated attestation - Marcus Eldridge MD - 02/01/2025 8:13 PM EST Medical Oncology Physician / SALLIE MDM-Based Shared Visit I was asked to see Paul Estrella by Franchesca Self because of the complexity of medical decision making requiring physician involvement. Patient was personally seen and examined, and I discussed the case with the House Staff member, Clinical Fellow, advanced practice registered nurse or physician blood bank assistant who also saw and examined the patient. I agree with their findings except as noted below. 39F presenting with newly diagnosed Graves disease and anterior mediastinal mass. Differential for anterior mediastinal mass is wide. 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 Because biopsy confirmation in the setting is associated with increased risk of complications, we would not recommend biopsy at this time. Instead we would recommend repeat chest imaging approximately six months after achieving euthyroidism (or sooner if symptoms of local progression). If there is less than 50% regression of the mass, biopsy or thymectomy should be reconsidered to rule out malignancy. Marcus Eldridge MD 02/01/2025 8:08 PM MDM Problems Addressed Minimal Low Moderate High [] 1 self-limited or minor problem [] 2 or more self-limited or minor problems; OR [] 1 stable, chronic illness; OR [] 1 acute, uncomplicated illness or injury OR [] 1 stable, acute illness; OR [] 1 acute, uncomplicated illness or injury requiring hospital inpatient or observation level of care [] 1 or more chronic illness with exacerbation, progression, or side effects of treatment OR [] 2 or more stable chronic illness OR [] 1 undiagnosed new problem with uncertain prognosis OR [] 1 acute illness with systemic symptoms OR [] 1 acute complicated injury [] 1 or more chronic illness with severe exacerbation, progression, or side effects of treatment OR [x] 1 acute or chronic illness or injury that poses a threat to life or bodily function MDM Risk Minimal Moderate High [] OTC drugs [] Minor surgery with no identified risk factors [] Prescription drug management [] Diagnosis or treatment significantly limited by social determinants of health [] Drug therapy requiring intensive monitoring for toxicity [] Decision regarding elective major surgery with identified patient or procedure risk factors [] Decision regarding emergency major surgery [] Decision regarding hospitalization or escalation of hospital-level care [] Decision not to resuscitate or to deescalate care because of poor prognosis [] Parenteral controlled substances NB: As of 2023, [facility] considers the practitioner who spends >50% of the total time or performs thesubstantive part of medical decision making (MDM) to have performed the substantive portion and canbill for the shared visit. If billing based on MDM, neither clinician should document time. For initial consults, use inpatient consult service codes [id number]. For subsequent visits, use codes [id number]. * Maykel Renteria MD - 02/01/2025 5:25 AM ESTAssociated Order(s): INPATIENT/ED CONSULT TO UROLOGY Images from the original note were not included. Urologic Surgery Consult Note Reason For Consult: right renal stones Requesting Attending: Marie Woodson MD Urology Attending: Dr. Maykel Renteria HPI: Paul Estrella is a 39 y.o. female with a past medical history of recently diagnosed hyperthyroidism, anterior mediastinal mass, R-sided kidney stone, and moderate malnutrition who presents with nausea, tremulousness, significant anxiety, and palpitations iso inadequately treated Grave's disease, aswell as 10/10 R flank pain. Urology was consulted for recommendations. She states that she had been at [facility] for the last 8 days. There, she was seen by Urology who did not want to intervene given the non obstructing nature of the stones and the fact thatshe had ongoing thyroid storm. Her right flank pain has been on and off, but earlier today was 10/10 now, is 4/10 with pain medication. She denies fevers, chills, hematuria, dysuria. In regards to her hyperthyroidism symptoms, she has ongoing palpitations sweating, heat intolerance, blurry/double vision. On evaluation, she is afebrile and hemodynamically stable. The patient's labs are notable for a Cr 0.47 , WBC 8.3 and Hgb 13.5. Urinalysis: 41 RBC/HPF, 35 WBC/HPF, and rare bacteria. Renal ultrasoundnotable fordilation of prox lower pole ureter (partially duplicated collecting system), bilateral ureteral jts visualied, bilateral non-obstructing stons PMH PSH Past Medical History[1] Past Surgical History[2] Social History Family History Social History Tobacco Use Smoking status: Not on file Smokeless tobacco: Not on file Substance Use Topics Alcohol use: Not on file No family history on file. Current Medications Current Medications[3] Allergies Iodinated contrast media Review of Systems: A 10 point review of system was conducted that was negative unless noted in the HPI. Objective: Vitals: Temp: [97.6 ??F (36.4 ??C)-97.9 ??F (36.6 ??C)] 97.9 ??F (36.6 ??C) Pulse: [97-112] 97 Resp: [17-18] 17 BP: (125-148)/(79-85) 148/79 SpO2: [100 %] 100 % Device: room air Intake/Output: No intake/output data recorded. PHYSICAL EXAM Gen: NAD, sleeping in bed, easily awoekn CV: RR Pulm: breathing comfortably on RA Abd: soft, ND, NT : mild R CVAT, no L CVAT LABS/RADIOLOGY: CBC Lab Results Component Value Date WBC 8.3 01/31/2025 HGB 13.5 01/31/2025 HCT 38.60 01/31/2025 PLT 366 01/31/2025 ELECTROLYTES Lab Results Component Value Date NA 140 01/31/2025 K 4.0 01/31/2025 CL 103 01/31/2025 CO2 21 01/31/2025 CREATININE 0.47 01/31/2025 BUN 11 01/31/2025 GLU 109 (H) 01/31/2025 CALCIUM 9.8 01/31/2025 MG 1.7 01/31/2025 PHOS 4.1 01/31/2025 URINALYSIS No results found for: UA , LABURIN IMAGING US Renal Result Date: 02/01/2025 There is redemonstration of dilatation of the proximal ureter of the lower pole , similar compared to outside CT examination. Redemonstration of bilateral renal calculi, in similar position compared to outside CT examination, as described above. The bilateral ureteral jets are visualized. [facility] Radiology Notify System Classification: Routine. Report initiated by: Tariq Zee MD Reported and salazar d by: Jr Cosby MD [facility] Assessment/Recommendations Paul Estrella is a 39 y.o. female with concern for ongoing thyroid storm, found to have bilateral non-obstructing renal stones with flank pain on the right. She is admitted to medicine for her thyroid control. Her renal ultrasound shows a partially duplicated right collecting system. There are no obstructing stones, but there is slight pelviectasis of the lower pole moiety where there 2 stones near the UPJ which theoretically could be intermittently obstructing. Given her ongoing thyroid storm,anesthesia would be higher risk for her and it may be best to observe her. However we could also consider PERC tubes if she were interested. - Start flomax 0.4mg nightly - Pain control - Encourage hydration - Strain all urine - Keep NPO for possible procedure - We will observe her pain and decide if intervention is warranted given the higher risk - Can also consider IR consult for PCNT Discussed with Dr. Maykel Renteria Signed: Quentin Bartlett M.D. [facility] Resident Physician PGY-2 Attending Pt seen and examined, chart is reviewed , agree with treatment plan Was at and discharged and was unable to get pain meds Mild calciectasis Today has a comprehensive discussion with high complexity decision making regarding the above. Has thyroid storm Will likely observe for now No acute intervention at present Will follow with you [1] No past medical history on file. [2] No past surgical history on file. [3] Current Facility-Administered Medications: diazePAM (VALIUM) tablet 2 mg, 2 mg, Oral, Once, Brown Allred MD hydrOXYzine (ATARAX) tablet 50 mg, 50 mg, Oral, Q4H PRN, Brown Allred MD LORazepam (ATIVAN) tablet 2 mg, 2 mg, Oral, Once, Brown Allred MD propranoloL (INDERAL) immediate release tablet 40 mg, 40 mg, Oral, Q8H, Brown Allred MD, 40 mg at 01/31/25 2333 propylthiouraciL (PTU) tablet 100 mg, 100 mg, Oral, 3 times daily, Brown Allred MD, 100 mg at 02/01/25 0041 No current outpatient medications on file. documented in this encounter ED Notes * Farhan Godoy RN - 02/02/2025 7:49 AM EST 7:49 AM Report received from off going RN. Pt states she has been in pain all night and nephrology providers told her she should be receiving pain meds through IV. Covering provider contacted who states theywill come speak with her. 8:21 AM Pt started on D5W for soft BP and NPO status. 9:21 AM IV Dilaudid given for pain 12/18. 10:30 AM Pt going to OR * Chiquita Richards RN - 02/01/2025 7:15 PM EST 7:11 PM Assumed care of pt, report received from previous RN. A&Ox4. VSS on RA. SR/ST on tele. Denies pain or discomfort at this time. Up to toilet with assist x1. NPO at midnight Safety maintained. Awaiting IP bed. 7:50 PM Pt requesting korean ice/provided. Up to toilet-safety maintained. 9:00 PM Pt resting comfortably, denies complaint. Significant other remains at the bedside-supportive. 10:02 PM Vital signs done-wdl. Safety maintained. 10:19 PM Medications provided per MAR-including pain medication. Pt refusing Propranolol-bp 99/68. Provider notified, no new orders noted. 11:30 PM Snack provided, pt reminded she is NPO at midnight-pt in agreement with POC. Reports mild relief of pain. 12:30 AM Pt resting with eye closed, significant other remains at the bedside. 1:40 AM Pt resting, currently in NSR-HR 74. Safety maintained. 2:55 AM Vital signs done, bp remains soft-provider aware. Pt denies additional complaint. 4:00 AM Relaxation promoted, safety maintained. 4:33 AM Labs drawn/sent. 5:30 AM Pt requesting pain medication and something for anxiety. States Atarax and Xanax don't work for my anxiety, I need Valium. Provider notified, Valium and Morphine provided per orders. 6:30 AM Pt resting in bed, safety maintained. 7:08 AM Report given to oncoming RN. * Salomón Michelle RN - 02/01/2025 12:10 PM EST Chief Complaint Patient presents with Palpitations Arrived requesting medication refill (unsure of name). Recently hospitalized for 8 days at [facility] for kidney stones and large mass in chest. Script sent to [place]. C/o nausea and palpitations. Medication Refill Past Medical History[1] [id number] Assumed care. AAOx4, VSS on RA. No resp/cardiac distress noted. OOB Independently. C/o Pain in back. Patient refused tramadol. Provider notified. Patient refused toradol, and provider notified. See MAR. PRN medication given with positive effect. Lungs: CTA . S1 and S2 sounds heard throughout the pre cordium. Tele: NSR 60s-70s. Bilateral radial and dorsalis pedis pulses 2+. IV maintained. Positive bowel sounds present. Voids spontaneously. Safety precautions/plan maintained. Frequent Hourly rounding provided. Call harrell within reach, bedside table within reach, and bed in the lowest position. Report given to oncoming shift nurse. [1] Past Medical History: Diagnosis Date Anxiety Hyperthyroidism Medullary sponge kidney Nephrolithiasis * Elvira Garcia RN - 02/01/2025 3:17 AM EST 3:17 AM Transferred from [facility] to B side alert and oriented x4, room air, vss, placed on tele with sinus tachy. Denied any pain and discomfort. Awaiting on chest MRI. Being admitted for Graves disease management, her med was sent to a different pharmacy resulting that she had missed her dose. 5:10 AM Provider at bedside. * Karlie Del Valle RN - 02/01/2025 2:52 AM EST Floor Handoff Telemetry: [x] Yes [] No Code Status: [x] Full [] DNR [] DNI Other (specify): Safety Precautions: [] Fall Risk [] Sitter [] Restraints [] Suicidal [x] None Other (specify): Mentation/Orientation: A&O (Self, person, place, time) x 4 Disoriented to: Special Accommodations: [] Hearing impaired [] Blind [] Nonverbal [] Cognitive impairment Oxygenation Upon Admission: [x] RA [] NC [] Venti [] Simple Mask [] Other Baseline O2 Status? [] Yes [] No Ambulation: [x] Independent [] Cane [] Walker [] Wheelchair [] Bedbound [] Hemiplegic [] Paraplegic [] Quadraplegic Eliminiation: [x] Independent [] Commode [] Bedpan/Urinal [] Straight Cath [] Maher cath [] Urostomy [] Colostomy Other (specify): Diarrhea/Loose stool : [] 1x within 24h [] 2x within 24h [] 3x within 24h [] None C.Diff Order: [] Ordered- needs to be collected [] Collected-sent to lab [] Resulted - Negative C.Diff [] Resulted - Positive C.Diff [] Not Ordered [] N/A Skin Alteration: [] Pressure Injury [] Wound [x] None [] Skin not assessed Diet: [x] Regular/No order placed [] NPO Other (specify): IV Access: [x] PIV [] PICC [] Port []Central line [] A-line Other (specify) IVF/GTT Running Upon ED Departure? [x] No [] Yes (specify): Outstanding Meds/Treatments/Tests: Meds Not Given: (as of time of note) 2:52 AM Current Facility-Administered Medications Medication diazePAM LORazepam propranoloL propylthiouraciL NEEDS VALIUM ATARAX AND ATIVAN FOR MRI Checksheet completed for MRI Valuables Noted: [] Dentures [] Glasses [] Hearing Aids [x] None Karlie Del Valle RN * Karlie Del Valle RN - 02/01/2025 1:33 AM EST Chief Complaint Patient presents with Palpitations Arrived requesting medication refill (unsure of name). Recently hospitalized for 8 days at [facility] for kidney stones and large mass in chest. Script sent to [place]. C/o nausea and palpitations. Medication Refill No past medical history on file. Allergies:Iodinated contrast media Patient A&OX4, chief complaint Anxiety, nausea, and palpitations. Patient state she was recently admitted at [facility] for kidney stones and she was also given the wrong medication for her hyper thyroid disease. Patient denies any other complaints. Patient educated on plan of care and safety. Patient not in any obvious distress. There are no other unrelated non-urgent or urgent complaints. Spouse at bedside call harrell within reach. Karlie oDe RN - 02/01/2025 1:33 AM EST Patient taken to [place] Marie Higgins MD - 01/31/2025 11:00 PM EST Chief Complaint Patient presents with Palpitations Arrived requesting medication refill (unsure of name). Recently hospitalized for 8 days at [facility] for kidney stones and large mass in chest. Script sent to [place]. C/o nausea and palpitations. Medication Refill Resident Note Synopsis Paul Esterlla is a 39 y.o. year old female with a PMH significant for recently diagnosed hyperthyroidism, anterior mediastinal mass, R-sided kidney stone, and moderate malnutrition who presents with nausea, tremulousness, significant anxiety, and palpitations iso inadequately treated Grave's disease, as well as 10 R flank pain iso known renal calculi. She was recently admitted 01/20 - 01/30(?) to [facility] for similar sx where she was found to have antibodies supportive of Graves disease. During admission CT imaging was notable for anteriormediastinal mass concerning for abnormal thymic tissue (recommended f/u with MRI), scattered 4mm pulmonary nodules, stable R-sided calculi 7 and 8 mm, L-sided calculi (size not reported), hydronephrosis, and 2.8cm R-sided ovarian cyst. She was also found to have a UTI. Per EMR seen by Urology who deferred stent placement iso active hyperthyroidism. She was discharged with plans to continue PTU 100mg TID and propranolol 40mg TID (she was previously tried on Methimazole 30mg TID with little effect). She reports that she has tried multiple outpatient pharmacies and been unable to obtain the PTU. She was told it comes from an out of state pharmacy and would not be here for 5-7 days. Her and her drove 1.5 hours here to [place] in the hopes of improved symptomatic management, appropriate medication dispense, and further workup of her mass. On exam, she is tremulous to the point of being unable to walk without assistance. Reports severe 10/10 anxiety. She does not want to take the Xanax she was discharged with; she is worried about the addictive potential and does not like how it makes her feel. She also has a 2-year old at home she needs to care for and does not want to be so sedated she cannot be a present mother. Vitals BP 107/71 Pulse (!) 104 Temp 98.3 ??F (36.8 ??C) (Oral) Resp 18 SpO2 100% Physical Exam Gen: NAD. Pt is lying in bed with at bedside. HEENT: NCAT, PERRLA, EOMI, MMM. CV: tachycardic rate, reg rhythm. Hypertensive. Pulm: lungs CTAB, no appreciable wheezes, rhonchi, or rales. Abd: Tenderness to palpation over R upper and lower quadrants. Endorses R-sided flank pain. No L-sided tenderness or suprapubic pain. ND, -BS. NO rigidity or guarding. MSK: WWP, no LE edema. Skin: No appreciable rashes or lesions. Neuro/Psych: pt is speaking in full sentences, shaky voice. AOx4. Appears distressed and tired. Notable shaking of both legs. No focal deficits. MDM/Plan: Paul Estrella is a 39 y.o. year old female with a rPMH of recently diagnosed Graves disease, anterior mediastinal mass, and known renal calculi who presents with tremulousness, palpitations, pain, and nausea after being unable to obtain PTU as an outpatient. Will obtain EKG, TSH, total T3, CBC, CMP, UA. Will start continuous tele given tachycardia and concern for thyroid storm. Plan to place consults to Med Onc, Urology, and Endocrine. Will give 100mg PTU and 40mg propranolol now per recommended med list from recent hospital discharge. Dilaudid for pain 2/2 calculi and zofran for nausea. Patient reports disliking how Xanax made her feel and is worried about the addictive potential. Will try Hydroxyzine then Valium if refractory (she reports this has worked well in the past). Will also pursue MRI chest to further characterize mass. Likely plan for admission for further workup and supportive care. See comments below for full ED course. Patient care and medical decision making occurred with oversight by Brown Allred MD Geodesist, PGY-9 An acute or life threatening problem was considered during this evaluation A decision regarding hospitalization was made during this visit External data reviewed: Labs and Notes (OSH or non-ED) Care limited by SDOH: Diesel Engine Mechanic Apprentice Access. Independent interpretation of: US and MRI Directly spoke with: Cd Technician Physical Exam ED Triage Vitals [01/31/252013] BP: 125/85 Pulse: (!) 112 Pulse from O2 sat: n/a Resp: 18 Temp: 36.4 ??C Temp src: Temporal SpO2: 100 % BP 107/71 Pulse (!) 104 Temp 98.3 ??F (36.8 ??C) (Oral) Resp 18 SpO2 100% Physical Exam Procedures Attestation/Critical Care Patient Reevaluation: Attending Supervised: Resident I saw and examined the patient. I agree with the findings and plan of care as documented in the resident's note except as noted below. - 39 y/F w/PMH of Graves Disease p/w worsening symptoms of palpitations, nausea, tremulousness, anxiety since her d/c from [facility]. She reports inability to tack picker PTU prescription. She wasalso found to have thymic mass on CT C/A/P, plan for onc eval but pt did not receive information toproceed. Also found to have 7mm and 8mm renal stone, plan for stent placement after control of hyperthyroidism. Had UTI but negative Ucx, stopped ABX regimen. - will give propranolol and PTU for thyroid control - plan for atarax to help with symptomatic relief - will obtain renal US and chest MRI for mgmt purposes - plan for uro, onc and endo c/s - plan to admit to medicine Marie Woodson MD, MBS Emergency Medicine Available through [facility] Critical care provided by attending: no critical care Patient progress: stable Clinical Impressions as of 02/01/25 0843 Graves disease ED Disposition Admit Marie Woodson MD 02/01/25 0843 documented in this encounter Miscellaneous Notes * Plan of Care - Shellie Marie RN - 02/08/2025 7:36 PM EST Plan of Care Overview/ Patient Status [phone] Pt is a female. Pt with moderate pain at this time. Neuro:Alert and Oriented x 4 CV:Patient is telemetry- NSR, no chest pain reported Resp:Patient is on room, no SOB reported or observed GI Last Bowel Movement: 02/07/25 Patient uses the barhroom Skin:See skin flowsheet.Skin check performed. Pt remains on pressure reduction mattress. Access Periph IV 02/07/252052 basilic (5th finger side), right 22 gauge Nurse (Active) SiteCare/Dressing Status/Securement dressing dry and intact 02/08/25 1225 Date Dressing Applied/Changed 03/09/25 02/08/25 1225 Next Date Dressing Change 03/16/2025 02/08/25 1225 Lumen 1 Patency/Care Patent;flushed w/o difficulty 02/08/25 1225 Site Signs asymptomatic without redness, warmth, swelling, pain, palpable cord, streak formation, drainage, dressing intact 02/08/25 1225 Phlebitis 0-->no symptoms 02/08/25 1225 Infiltration/Extravasation Assessment 0-->no symptoms 02/08/25 1225 Patient Education Instructed to keep IV site dry 02/08/25 1225 Daily Review of Necessity completed 02/08/25 1225 Mobility: [facility] Mobility Score: [address], all safety measures implemented. Significant events from this shift: Patient discharged home. * Plan of Care - Arely Archibald RN - 02/08/2025 2:30 PM EST Plan of Care Overview/ Patient Status Problem: Adult Inpatient Plan of Care Goal: Readiness for Transition of Care Outcome: Outcome(s) achieved Patient discharging home/to the community 02/08/25. Patient discharging with no needs. Patient to betransported by spouse. Patient in agreement with discharge plan. CM Finalized D/C Plan Flowsheet Row Most Recent Value Finalized Plan Expected Discharge Date 02/08/25 Discharge Disposition Home or Self Care Discharge Readiness PASRR completed and approved N/A Authorization number obtained, if required N/A Is there a 3 day INPATIENT Qualifying stay for Medicare Patients? N/A Medicare IM- signed, dated, timed and scanned, if required N/A DME Authorized/Delivered N/A No needs identified/ follow up with PCP/MD/Outpatient Provider Yes Post acute care services secured W10 complete N/A JAMES Completed and Accepted ([place] Patients Only) N/A Is the destination address correct on the W10 N/A Is MVP Pathway complete? N/A Last Bowel Movement 02/07/25 Arely Archibald RN Care Management Department [facility] * Malnutrition Note - Eliseo Leonard RD - 02/08/2025 12:41 PM EST Malnutrition Identification Nutrition Diagnosis Nutrition Diagnosis/Problem: Malnutrition Related to: wt loss, poor energy intake, and depletion As Evidenced by: 5% in 1 month, intake <75% for >1 month with mild depletion Malnutrition Diagnosis - Adult: Malnutrition Clinician co-signature indicates agreement with the RD diagnosis. Registered dietitian has identified this patient as malnourished based on the following criteria: Moderate Malnutrition: Weight Loss: Chronic Illness: 5%/1 month Energy Intake: Chronic Illness: <75% for greater than or equal to 1 month Body Fat: All Etiologies: Mild Depletion - Orbital fat pads, Mild Depletion - Buccal fat pads, Mild Depletion- Triceps Muscle Mass: All Etiologies: Mild Depletion - Mandaen Region, Mild Depletion - Clavicle bone region (trapezius, supraspinatus, infraspinatus muscles), Mild Depletion - Shoulder and acromium process region (deltoidMuscle), Mild Depletion - Dorsal hand (interosseous muscles) Registered Dietitian: Eliseo Leonard RD, February 08, 2025 Cosigned by Fiona Squires MD at 02/08/2025 1:18 PM EST * Plan of Care - Shellie Marie RN - 02/08/2025 12:28 PM EST Plan of Care Overview/ Patient Status [id number] Pt is a female. Pt with moderate pain at this time. Neuro:Alert and Oriented x 4 CV:Patient is on telemetry - NSR , no chest pain reported Resp:Patient is on room air, no SOB reported or observed GI Last Bowel Movement: 02/07/25 Patient uses the bathroom Skin: See skin flowsheet. Skin check performed. Pt remains on pressure reduction mattress and heelselevated off bed. Access Periph IV 02/07/252052 basilic (5th finger side), right 22 gauge Nurse (Active) SiteCare/Dressing Status/Securement dressing dry and intact 02/08/25 1225 Date Dressing Applied/Changed 03/09/25 02/08/25 1225 Next Date Dressing Change 03/16/2025 02/08/25 1225 Lumen 1 Patency/Care Patent;flushed w/o difficulty 02/08/25 1225 Site Signs asymptomatic without redness, warmth, swelling, pain, palpable cord, streak formation, drainage, dressing intact 02/08/25 1225 Phlebitis 0-->no symptoms 02/08/25 1225 Infiltration/Extravasation Assessment 0-->no symptoms 02/08/25 1225 Patient Education Instructed to keep IV site dry 02/08/25 1225 Daily Review of Necessity completed 02/08/25 1225 Mobility: [facility] Mobility Score: [address], all safety measures implemented. No significant events from this shift. Problem: Adult Inpatient Plan of Care Goal: Plan of Care Review Outcome: Interventions implemented as appropriate Goal: Patient-Specific Goal (Individualized) Outcome: Interventions implemented as appropriate Goal: Absence of Hospital-Acquired Illness or Injury Outcome: Interventions implemented as appropriate Goal: Optimal Comfort and Wellbeing Outcome: Interventions implemented as appropriate Goal: Readiness for Transition of Care Outcome: Interventions implemented as appropriate * Plan of Care - Eliseo Leonard RD - 02/08/2025 12:18 PM EST Paul Estrella Location: -B 39 y.o., female Attending: Fiona Squires MD Admit Date: 01/31/2025 [id number] LOS: 7 days INITIAL NUTRITION ASSESSMENT Dietary Orders (From admission, onward) Start Ordered 02/02/25 1451 Diet Regular DIET EFFECTIVE NOW Question: Initiate Nutrition Management Protocol (Yes/No?) Answer: Yes - Initiate Protocol 02/02/25 1450 Allergies[1] ANTHROPOMETRICS: Height: 5' 6 (1.676 m) Admit wt: 72.6 kg (02/02) Current wt: 73 kg (02/08- standing) Dosing Wt: 65 kg (based on hamwi +10%) BMI: 26 (based on current wt) Additional wt information: Ht confirmed with pt: YES - pt reported UBW of 76.7kg just one 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 This equates to a 5% wt loss in the past 1 month. Wt loss appears to be related decreased oral intake over the past 1 month. Wt Readings from Last 20 Encounters: 02/08/25 73 kg NUTRITION-FOCUSED PHYSICAL EXAM: Subcutaneous Fat Loss: Orbital: Mild Buccal: Mild Upper Arm: Mild Muscle Loss: Mandaen: Mild Clavicle: Mild Deltoid: Mild Interosseous: Mild SKIN: No skin related changes that require adjustment to nutrition estimated needs. ESTIMATED NUTRITION REQUIREMENTS: Kcal/day: 0092-1984 (25-30kcal/kg) Protein/day: 78 (1.2 gm/kg) Fluids/day: 9194-3013 mL/d (1mL/kcal) ONLY as medical and fluid status allows and only per team discretion. Needs based on: Dosing Wt (65 kg), repletion NUTRITION ASSESSMENT: PT EMR reviewed for Malnutrition Screen >2. 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 Pt R>L nephrolithiasis s/p recent OSH admit for thyroid storm. Pt noted to have improved pain and moving bowels. Labs reviewed - magnesium(1.5L), LFT's (ALT@101H and AST@69H). Meds reviewed - Lovenox, theragran, miralax, propranolo, senaa, flomax, trazodone LBM - 02/07- small reported by patient. (6BM noted since admitted) Pt A&Ox 4, pt met at bedside reported variable po intake and tolerance to po intake over the past week. Pt reported above mentioned weight loss. Was not eating well when at OSH- confirmed with OSH note review available in hx. Pt meets criteria for moderate malnutrition in setting of poor intake, wt loss and depletion which is supported by pt reported reduced intake recall. Pt with N/V over night last night in setting of pain but not associated with food intake. Ordering behaviors compared to recall of intake and nursing reported intake- pt found to be averaging ~70% of meal completion- average intake appears to be ~1800kcal and 47g pro per day over the past week. This meets kcal needs but falls short of protein needs. Pt receptive to guidance and encouragement to increase protein intake at meals. Cultural/Hoahaoism/Ethnic Needs: No NUTRITION DIAGNOSIS: Moderate malnutrition related to wt loss, poor energy intake, and depletion as evidenced by 5% in 1month, intake <75% for >1 month with mild depletion. INTERVENTIONS/RECOMMENDATIONS: General/ Healthful Diet Regular diet as tolerated. Goal: Pt to consume >75% of meals over the next 5 days Supplements: Commercial beverage- Agreeable to magic cup BID Goal: Patient to consume an average of 1-2 oral nutrition supplements/day prior to next nutrition assessment Discharge and Transfer of Nutrition Care to New Setting or Provider: Nutrition Prescription- Discharge needs not determined at this time will continue to follow MONITORING / EVALUATION: Food/Nutrition-Related Outcomes: food and nutrient intake/administration. Anthropometric Outcomes: weight Biochemical Data, Medical Tests, and Procedure Outcomes: Labs (General chemistry, renal labs, Glucose). Nutrition-Focused Physical Finding Outcomes: Physical appearance, muscle and fat wasting, swallow function, appetite. Electronically signed by Eliseo Leonard RD, February 08, 2025 [facility] M-F Adult Inpatient Service ???Please note: Nutrition is a consult only service on weekends and holidays. Please enter a consult in [facility] if assistance is needed on a weekend or holiday. Dietitian staff covering weekends or holidays can be contacted via [employer] ???[facility] Food and Nutrition Services Adult Dietitian (Weekend)?? [1] Allergies Allergen Reactions Ceftriaxone Hives 6 mo ago at OSH per pt Iodinated Contrast Media Hives Confirmed per patient, >1 yr ago * Plan of Care - Carolyn Fajardo RN - 02/08/2025 12:52 AM EST Plan of Care Overview/ Patient Status [id number] Pt is a female. Pt with moderate-severe R flank pain. Scheduled Toradol and Tylenol given with goodeffect most of the night. Pt woke up this AM in severe pain. PRN Valium given, then PRN Dilaudid given with good effect. PRN Zofran and Reglan given for nausea with good effect Neuro: Alert and oriented to person, place, time, and situation CV: On telemetry. Denies chest pain Resp: VSS on room air. Denies shortness of breath GI: Continent. Up to toilet. Last BM 02/07. Pills whole : Continent. Up to toilet. Straining urine per orders Skin: Pt remains on pressure reduction mattress. Turns and repositions independently Access Periph IV 02/07/252052 basilic (5th finger side), right 22 gauge Nurse (Active) SiteCare/Dressing Status/Securement dressing changed 02/07/252053 Date Dressing Applied/Changed 02/07/25 02/07/252053 Next Date Dressing Change 02/14/2025 02/07/252053 Lumen 1 Patency/Care Patent;flushed w/o difficulty;blood return not present 02/07/252053 Site Signs asymptomatic without redness, warmth, swelling, pain, palpable cord, streak formation, drainage, dressing intact 02/07/252053 Phlebitis 0-->no symptoms 02/07/252053 Infiltration/Extravasation Assessment 0-->no symptoms 02/07/252053 Patient Education Instructed to keep IV site dry;Instructed to call nurse if site is painful,red,swollen, burning;Instructed to call nurse if fluid leaking from site 02/07/252053 Daily Review of Necessity completed 02/07/252053 Mobility: Independent Problem: Adult Inpatient Plan of Care Goal: Plan of Care Review Outcome: Interventions implemented as appropriate Flowsheets (Taken 02/08/2025 0052) Progress: no change Plan of Care Reviewed With: patient * Plan of Care - Arely Dimas RN - 02/07/2025 8:54 PM EST Plan of Care Overview/ Patient Status 0700---1900 Pt is a female. Pt with severe pain at this time. Pain managed with PRN dilaudid, scheduled tylenoland scheduled Toradol. PRN Zofran and valium also given this shift. Neuro: Alert and oriented to person, place, time, and situation CV: On telemetry. NSR. Denies chest pain Resp: VSS on room air. Denies shortness of breath GI: Continent. Up to toilet. Last BM 02/07. Pills whole : Continent. Up to toilet. Voiding saad/reddish urine. Continuing to strain urine per orders. Skin: Pt remains on pressure reduction mattress. Turns and repositions independently. Access Periph IV 02/07/252052 basilic (5th finger side), right 22 gauge Nurse (Active) SiteCare/Dressing Status/Securement dressing changed 02/07/252053 Date Dressing Applied/Changed 02/07/25 02/07/252053 Next Date Dressing Change 02/14/2025 02/07/252053 Lumen 1 Patency/Care Patent;flushed w/o difficulty;blood return not present 02/07/252053 Site Signs asymptomatic without redness, warmth, swelling, pain, palpable cord, streak formation, drainage, dressing intact 02/07/252053 Phlebitis 0-->no symptoms 02/07/252053 Infiltration/Extravasation Assessment 0-->no symptoms 02/07/252053 Patient Education Instructed to keep IV site dry;Instructed to call nurse if site is painful,red,swollen, burning;Instructed to call nurse if fluid leaking from site 02/07/252053 Daily Review of Necessity completed 02/07/252053 Mobility: [facility] Mobility Score: [address], all safety measures implemented. Isolation Precautions: Significant events from this shift: * Plan of Care - Carolyn Fajardo RN - 02/07/2025 12:03 AM EST Plan of Care Overview/ Patient Status 8870-5273 Pt is a female. Pt with severe R flank pain. Scheduled Tylenol and Toradol given with good effect. Pt woke up in severe pain around 0350. PRN Valium given per MD pain regimen order with little effect. PRN Oxycodone then given. Pt vomited immediately. PRN Zofran and Dilaudid given with good effect. Pt began vomiting again around 0600. PRN Reglan given and scheduled Toradol given. Pt resting comfortably. Neuro: Alert and oriented to person, place, time, and situation CV: On telemetry. NSR. Denies chest pain Resp: VSS on room air. Denies shortness of breath GI: Continent. Up to toilet. Last BM 02/01. Pills whole : Continent. Up to toilet. Voiding saad/reddish urine. Continuing to strain urine per orders. Skin: Pt remains on pressure reduction mattress. Turns and repositions independently. Access Periph IV 02/05/25 1800 metacarpal(dorsum of hand), right 20 gauge Nurse (Active) SiteCare/Dressing Status/Securement dressing dry and intact 02/06/252028 Date Dressing Applied/Changed 02/05/25 02/06/25728 Next Date Dressing Change 02/12/2025 02/06/25728 Lumen 1 Patency/Care Patent;flushed w/o difficulty 02/06/252028 Site Signs asymptomatic without redness, warmth, swelling, pain, palpable cord, streak formation, drainage, dressing intact 02/06/252028 Phlebitis 0-->no symptoms 02/06/252028 Infiltration/Extravasation Assessment 0-->no symptoms 02/06/252028 Patient Education Instructed to keep IV site dry;Instructed to call nurse if site is painful,red,swollen, burning;Instructed to call nurse if fluid leaking from site 02/06/252028 Daily Review of Necessity completed 02/06/252028 Mobility: Independent Problem: Adult Inpatient Plan of Care Goal: Plan of Care Review 02/07/2025 0003 by Carolyn Fajardo RN Outcome: Interventions implemented as appropriate Flowsheets (Taken 02/07/20252) Progress: no change Plan of Care Reviewed With: patient * Plan of Care - Arely Dimas RN - 02/06/2025 6:22 PM EST Plan of Care Overview/ Patient Status 3934-6374 Pt is a female. Pt with moderate pain at this time. Patient was given IV torodol, scheduled tylenol, and valium with some effect. Neuro: patient is alert and oriented to self, place, time and situation CV: on telemetry, NSR, denies chest pain. Palpitations relieved with valium Resp: no shortness of breath on room air GI Last Bowel Movement: 02/01/[address] Continent. [place] urine this evening with minimal sediment strained. Skin: See skin flowsheet. T+P independently. Pt remains on pressure reduction mattress and heels elevated off bed. Access Periph IV 02/05/25 1800 metacarpal(dorsum of hand), right 20 gauge Nurse (Active) SiteCare/Dressing Status/Securement dressing dry and intact 02/06/25728 Date Dressing Applied/Changed 02/05/25 02/06/25728 Next Date Dressing Change 02/12/2025 02/06/25728 Lumen 1 Patency/Care Patent;flushed w/o difficulty;blood return not present 02/06/25728 Site Signs asymptomatic without redness, warmth, swelling, pain, palpable cord, streak formation, drainage, dressing intact 02/06/25728 Phlebitis 0-->no symptoms 02/06/25728 Infiltration/Extravasation Assessment 0-->no symptoms 02/06/25728 Patient Education Instructed to keep IV site dry;Instructed to call nurse if site is painful,red,swollen, burning;Instructed to call nurse if fluid leaking from site 02/06/25728 Daily Review of Necessity completed 02/05/252131 Mobility: [facility] Mobility Score: [address], all safety measures implemented. Isolation Precautions: Significant events from this shift: * Plan of Care - Nat Yao RN - 02/05/2025 11:05 PM EST Plan of Care Overview/ Patient Status 0730-4414 Pt is a female. Pt with ongoing flank pain at this time. Meds given (see MAR) and heat packs applied Neuro: Alert and oriented times 4 CV: Tele. Normal sinus rhythm Resp: Room air. No shortness of breath per patient GI Last Bowel Movement: 02/01/25 Continent. [place] urine this evening with minimal sediment strained. Skin: See skin flowsheet. T+P independently Access Periph IV 02/05/25 1800 metacarpal(dorsum of hand), right 20 gauge Nurse (Active) SiteCare/Dressing Status/Securement dressing dry and intact 02/05/252131 Date Dressing Applied/Changed 02/05/25 02/05/251838 Next Date Dressing Change 02/12/2025 02/05/251838 Lumen 1 Patency/Care Patent;flushed w/o difficulty 02/05/252131 Site Signs asymptomatic without redness, warmth, swelling, pain, palpable cord, streak formation, drainage, dressing intact 02/05/252131 Phlebitis 0-->no symptoms 02/05/252131 Infiltration/Extravasation Assessment 0-->no symptoms 02/05/252131 Patient Education Instructed to keep IV site dry;Instructed to call nurse if site is painful,red,swollen, burning;Instructed to call nurse if fluid leaking from site 02/05/252131 Daily Review of Necessity completed 02/05/252131 Mobility: [facility] Mobility Score: 23 Bed alarm refused, all safety measures implemented. Isolation Precautions: none Significant events from this shift: Propanolol dose held this morning due to soft bp, MD aware of situation. Problem: Adult Inpatient Plan of Care Goal: Absence of Hospital-Acquired Illness or Injury Outcome: Interventions implemented as appropriate Intervention: Identify and Manage Fall Risk Flowsheets (Taken 02/05/20252131) Jackpot Fall Prevention: activity supervised assistive device/personal items within reach keep room clutter free with open pathway to the bathroom fall prevention program maintained safety round/check completed room organization consistent Intervention: Prevent Skin Injury Flowsheets (Taken 02/05/20252131) Body Position: independent Intervention: Prevent and Manage VTE (Venous Thromboembolism) Risk Flowsheets (Taken 02/02/2025 1315 by Frannie Conroy, YOLANDA) VTE Prevention/Management: sequential compression devices on Intervention: Prevent Infection Flowsheets (Taken 02/05/20252131) Infection Prevention: cohorting utilized environmental surveillance performed equipment surfaces disinfected hand hygiene promoted rest/sleep promoted * Plan of Care - Christi Mcintosh RN - 02/05/2025 9:50 AM EST Plan of Care Overview/ Patient Status 4217-5621 Pt is a female. Pt with severe complains of abodminal pain radiates to back, managed in AM with IV Dilaudid. (Per Dr. Albarado to give Dilaudid in AM instead of oral Oxycodone). Patient declined scheduled pain medication during the day and available as needed pain medications I do not want to take anything . Education provided. Dr. Albarado notified and discussed pain management plan twice with patient this shift. Neuro: Alert & oriented to self, place, time and situation. Anxiety related to pain management,reassurance and active listening provided, options offered. CV: Sinus Tachycardia on telemetry with activity, denies chest pain. Pt. Removed telemetry twice toshower this shift. Resp: Lungs clear, on room air, no noted or reported shortness of breath. GI Last Bowel Movement: 02/01/25. Abdomen non-tender and non-distended, bowel sounds + all quadrants; bowel regimen in place. Continent, up to bathroom, urine straining in progress. Urine orange (on Pyridium), one time noted scant amount of brown rosey sediment. Skin: See skin flowsheet. Turns and repositions self independently in bed. Pt remains on pressure reduction mattress. Restraints: None. Access This IV removed related to patient complaining of pain when flushed, otherwise asymptomatic. Periph IV 02/02/25 1217 dorsum left arm [id number] catheter system 20 gauge Nurse (Active) SiteCare/Dressing Status/Securement dressing dry and intact 02/04/252004 Date Dressing Applied/Changed 02/02/25 02/02/25 1315 Next Date Dressing Change 02/09/2025 02/02/25 1315 Lumen 1 Patency/Care Patent;flushed w/o difficulty 02/04/252004 Site Signs asymptomatic without redness, warmth, swelling, pain, palpable cord, streak formation, drainage, dressing intact 02/04/252004 Phlebitis 0-->no symptoms 02/04/252004 Infiltration/Extravasation Assessment 0-->no symptoms 02/04/252004 Patient Education Instructed to keep IV site dry;Instructed to call nurse if site is painful,red,swollen, burning;Instructed to call nurse if fluid leaking from site 02/04/252004 Daily Review of Necessity completed 02/04/252004 Right hand posterior, New intravenous line initiated. Patent with good blood return. Mobility: [facility] Mobility Score: 23. Ambulates independently in room. Bed alarm removed, ambulates at steady gait. Isolation Precautions: None. Significant events from this shift: Significant anxiety by end of shift related to pain. Pt. removed telemetry and went to shower to run hot water on back, noted squatting in bathroom and states I am running hot water to help with my pain (pt. had declined scheduled and as needed pain medication during shift except in early AM), reassurance and active listening provided. Pt. agreeable to get dressed and go back to recliner/bed;notified Dr. Albarado who came in and spoke to patient. Pt. agreeable to take Toradol IV as scheduled; pt.Continued with anxiety, and started dry heaving & shaking prior to and after giving Toradol, notified Dr. Albarado, orders obtained for Zofran, given, pending reassessment of efficacy by night RN. Pt. reported Toradol Did not help, pain remains about the same. Offered oral pain medication, pt. States I do not want to take anything oral, I want IV . Pt. Thereafter, agreeable to try oral Oxycodone to alleviate pain, provided reassurance and encouraged pt. to trial oral pain medication. Reassessment of Oxycodone efficacy pending by night RN. Problem: Adult Inpatient Plan of Care Goal: Plan of Care Review Outcome: Interventions implemented as appropriate Goal: Patient-Specific Goal (Individualized) Outcome: Interventions implemented as appropriate Goal: Absence of Hospital-Acquired Illness or Injury Outcome: Interventions implemented as appropriate Goal: Optimal Comfort and Wellbeing Outcome: Interventions implemented as appropriate Goal: Readiness for Transition of Care Outcome: Interventions implemented as appropriate Problem: Nausea and Vomiting Goal: Signs and symptoms of listed potential problems will be abse Description: Signs and symptoms of listed potential problems will be absent or manageable Outcome: Interventions implemented as appropriate Note: See flowsheet documentation for assessment and interventions Problem: Pain Goal: Optimal Pain Control and Function Outcome: Interventions implemented as appropriate Problem: Fall Injury Risk Goal: Absence of Fall and Fall-Related Injury Outcome: Interventions implemented as appropriate * Plan of Care - Nat Yao RN - 02/04/2025 11:51 PM EST Plan of Care Overview/ Patient Status [id number] Pt is a female. Pt with moderate ongoing R flank pain at this time. PRN meds given (see MAY) Neuro: Alert and oriented times 4 CV: Tele. Normal sinus rhythm Resp: Room air. No shortness of breath per patient GI Last Bowel Movement: 02/01/25 Continent. Urine being strained; saad/pink urine with some sediment this evening. Skin: See skin flowsheet. T+P independently Access Periph IV 02/02/25 1217 dorsum left arm knzm-upu-gxioza catheter system 20 gauge Nurse (Active) SiteCare/Dressing Status/Securement dressing dry and intact 02/04/252004 Date Dressing Applied/Changed 02/02/25 02/02/25 131 Next Date Dressing Change 02/09/2025 02/02/25 1315 Lumen 1 Patency/Care Patent;flushed w/o difficulty 02/04/252004 Site Signs asymptomatic without redness, warmth, swelling, pain, palpable cord, streak formation, drainage, dressing intact 02/04/252004 Phlebitis 0-->no symptoms 02/04/252004 Infiltration/Extravasation Assessment 0-->no symptoms 02/04/252004 Patient Education Instructed to keep IV site dry;Instructed to call nurse if site is painful,red,swollen, burning;Instructed to call nurse if fluid leaking from site 02/04/252004 Daily Review of Necessity completed 02/04/252004 Mobility: [facility] Mobility Score: [address], all safety measures implemented. Isolation Precautions: none Problem: Adult Inpatient Plan of Care Goal: Absence of Hospital-Acquired Illness or Injury Outcome: Interventions implemented as appropriate Intervention: Identify and Manage Fall Risk Flowsheets (Taken 02/04/20252004) Jackpot Fall Prevention: activity supervised assistive device/personal items within reach keep room clutter free with open pathway to the bathroom fall prevention program maintained safety round/check completed room organization consistent Intervention: Prevent Skin Injury Flowsheets (Taken 02/04/20252004) Body Position: independent Intervention: Prevent and Manage VTE (Venous Thromboembolism) Risk Flowsheets (Taken 02/02/20251314 by Frannie Conroy, RN) VTE Prevention/Management: sequential compression devices on Intervention: Prevent Infection Flowsheets (Taken 02/04/20252004) Infection Prevention: cohorting utilized environmental surveillance performed equipment surfaces disinfected hand hygiene promoted rest/sleep promoted * Plan of Care - Erica Gonsalez RN - 02/04/2025 1:47 PM EST Plan of Care Overview/ Patient Status [id number] Pt is a female. Pt with moderate R flank pain at this time. Does not want to take any medications at this time, heat packs applied. Neuro: alert and oriented to person, place, time, situation. Pleasant and cooperative with care. CV: on tele, NSR. Some PVCs today, MD aware. Denies chest pain. Resp: room air, denies SOB GI Last Bowel Movement: 02/01/25 cont. Urine dark saad/red, sediment with straining. Skin: See skin flowsheet. T+P independently. Pt remains on pressure reduction mattress and heels elevated off bed. Access Periph IV 02/02/25 1217 dorsum left arm wsqw-gtj-ysywkj catheter system 20 gauge Nurse (Active) SiteCare/Dressing Status/Securement dressing dry and intact 02/04/25 09 Date Dressing Applied/Changed 02/02/25 02/02/251314 Next Date Dressing Change 02/09/2025 02/02/251314 Lumen 1 Patency/Care Patent;flushed w/o difficulty 02/04/25 09 Site Signs asymptomatic without redness, warmth, swelling, pain, palpable cord, streak formation, drainage, dressing intact 02/04/25 09 Phlebitis 0-->no symptoms 11900 Infiltration/Extravasation Assessment 0-->no symptoms 02/04/25900 Patient Education Instructed to keep IV site dry;Instructed to call nurse if site is painful,red,swollen, burning;Instructed to call nurse if fluid leaking from site 02/04/25900 Daily Review of Necessity completed 02/04/25900 Mobility: [facility] Mobility Score: 23 Bed alarm not indicated, all safety measures implemented. Isolation Precautions: protective environment maintained Significant events from this shift: PTU switched to Methimazole due to elevated LFTs Problem: Adult Inpatient Plan of Care Goal: Plan of Care Review Outcome: Interventions implemented as appropriate * Plan of Care - Nat Yao RN - 02/03/2025 8:16 PM EST Plan of Care Overview/ Patient Status [id number] Pt is a female. Pt with moderate ongoing pain at this time. PRN meds given (see MAR) Neuro: Alert and oriented times 4 CV: Tele. Normal sinus rhythm Resp: Room air. No shortness of breath per patient GI Last Bowel Movement: 02/01/25 Continent. Red/pink urine this evening, pt reporting that the colour is casino supervisor compared to earlier in the day. updated on situation. Skin: See skin flowsheet. T+P independently Access Periph IV 02/02/25 1217 dorsum left arm saqd-bcm-jfdkez catheter system 20 gauge Nurse (Active) SiteCare/Dressing Status/Securement dressing dry and intact 02/03/252011 Date Dressing Applied/Changed 02/02/25 02/02/25 1315 Next Date Dressing Change 02/09/2025 02/02/25 1315 Lumen 1 Patency/Care Patent;flushed w/o difficulty 02/03/252011 Site Signs asymptomatic without redness, warmth, swelling, pain, palpable cord, streak formation, drainage, dressing intact 02/03/252011 Phlebitis 0-->no symptoms 02/03/252011 Infiltration/Extravasation Assessment 0-->no symptoms 02/03/252011 Patient Education Instructed to keep IV site dry;Instructed to call nurse if site is painful,red,swollen, burning;Instructed to call nurse if fluid leaking from site 02/03/252011 Daily Review of Necessity completed 02/03/252011 Mobility: [facility] Mobility Score: [address], all safety measures implemented. Isolation Precautions: none Problem: Adult Inpatient Plan of Care Goal: Absence of Hospital-Acquired Illness or Injury Outcome: Interventions implemented as appropriate Intervention: Identify and Manage Fall Risk Flowsheets (Taken 02/03/20252011) Jackpot Fall Prevention: activity supervised assistive device/personal items within reach keep room clutter free with open pathway to the bathroom fall prevention program maintained safety round/check completed room organization consistent Intervention: Prevent Skin Injury Flowsheets (Taken 02/03/20252011) Body Position: independent Intervention: Prevent and Manage VTE (Venous Thromboembolism) Risk Flowsheets (Taken 02/02/2025 1315 by Frannie Conroy RN) VTE Prevention/Management: sequential compression devices on Intervention: Prevent Infection Flowsheets (Taken 02/03/20252011) Infection Prevention: cohorting utilized environmental surveillance performed equipment surfaces disinfected hand hygiene promoted rest/sleep promoted * Plan of Care - Alexander Ayala I - 02/03/2025 3:37 PM EST Patient Name:Paul Estrella Vpk Teacher: [id number] Temple: None [facility] Spiritual Care Note Date of Spiritual Visit: 02/03/25 Start Time: 1517 Stop Time: 1537 Time Calculation (min): 20 min Total Consult Time: 25 minutes Assessment: Pt is being visited by her who is loving and caring for her. She was pleasant and shared freely. Pt is anxious and would like for hoop bending machine operator to prayer for her family and her health. We prayed together before ending our visit. Intervention: Referral Source: Vpk Teacher Initiated Visit and Intervention Type: Spiritual Visit Outcome: Patient/Loved ones' desires are respected; emotional spiritual, evangelical and/or existential needs are addressed. Plan: Spiritual Care is available 01/10 for support of patients, their loved ones, and staff. Please consult spiritual care in [facility] for non-urgent needs or call our on-call hoop bending machine operator for urgent needs. Below is a list of common reasons to consult us for support: N: new diagnosis E: emotional/spiritual distress E: existential distress D: decision making/goals of care meetings S: support for staff and patients' loved ones C: compromised coping A: anxiety/stress/grief/loneliness R: evangelical/cultural/ritual needs E: end-of-life care//dying Vpk Teacher: Rev. Alexander Ayala [employer] #[phone]: Sat-Sat. 8:00 am - 4:00 pm. Vpk Teacher Lead [employer] #[phone]. 02/03/2025 3:37 PM * Plan of Care - Erica Gonsalez RN - 02/03/2025 10:56 AM EST Plan of Care Overview/ Patient Status [id number] Pt is a female. Pt with no pain cues at this time, sleeping. PRNs given today per MAR & heat packs applied for severe R flank pain. Neuro: alert and oriented to person, place, time, situation CV: on tele, NSR, denies chest pain Resp: room air, denies SOB GI Last Bowel Movement: 02/01/25 cont, indep. Urine color red/saad today, change from baseline yellow - MD notified. Straining sediment, aware. Skin: See skin flowsheet. T+P independently. Pt remains on pressure reduction mattress and heels elevated off bed. Access Periph IV 02/02/25 1217 dorsum left arm nozb-xqt-kiccqx catheter system 20 gauge Nurse (Active) SiteCare/Dressing Status/Securement dressing dry and intact 02/03/25 09 Date Dressing Applied/Changed 02/02/25 02/02/25 131 Next Date Dressing Change 02/09/2025 02/02/25 131 Lumen 1 Patency/Care Patent;flushed w/o difficulty 02/03/25 09 Site Signs asymptomatic without redness, warmth, swelling, pain, palpable cord, streak formation, drainage, dressing intact 02/03/25 09 Phlebitis 0-->no symptoms 02/03/25899 Infiltration/Extravasation Assessment 0-->no symptoms 02/03/25899 Patient Education Instructed to keep IV site dry;Instructed to call nurse if site is painful,red,swollen, burning;Instructed to call nurse if fluid leaking from site 02/03/25899 Daily Review of Necessity completed 02/03/25899 Mobility: [facility] Mobility Score: 23 Bed alarm refused, all safety measures implemented. Isolation Precautions: protective environment maintained Significant events from this shift: none Problem: Adult Inpatient Plan of Care Goal: Plan of Care Review Outcome: Interventions implemented as appropriate * Plan of Care - Arely Archibald RN - 02/03/2025 8:24 AM EST Plan of Care Overview/ Patient Status Problem: Adult Inpatient Plan of Care Goal: Readiness for Transition of Care Outcome: Interventions implemented as appropriate Per H&P, 39yo woman c past hx of anxiety, hyperthyroidism, medullary sponge kidney, nephrolithiasis s/p lithotripsy and ureteral stenting, presented to [facility] with possible thyroid storm and renal colic for which transferred to [facility] on 01/20 where found to have 1) hyperthyroidism attributed to thyroiditis in setting of Graves disease for which initially given methimazole but inadequate so switched to PTU, 2) renal colic with obstructing 0.7cm and 0.8cm R renal calculibut repeat imaging later in admission showed non-obstructing L nephrolithiasis, 3) possible UTI on UA but unrevealing urine culture so course of levofloxacin stopped, 4) 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 Patient resides with her spouse. 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 Independent at baseline. No CM needs anticipated. Case Management/Social Work Screening and Evaluation Flowsheet Row Most Recent Value Case Management/Social Work Screening: Chart review completed. If YES to any question below then proceed to Eval/Plan Is there a change in their cognitive function No Do you anticipate that the patient will have any discharge needs requiring CM/SW intervention? No Has there been an unscheduled readmission within the past 30 days and/or >four (4) admissions within 12 months? Yes Were there services prior to admission ( Examples: Acute [facility], Assisted Living, HD, Homecare, Extended Care Facility, Methadone, SNF, Outpatient Infusion Center) No Concern for current abuse/neglect/interpersonal violence/sexual assault No Connected to state agency? No Guardianship or conservatorship No Negative/Positive Screen Positive Screening: Complete CM/SW Evaluation and Plan Branch Banker/Social Work Attestation I have reviewed the medical record and completed the above screen. CM/SW staff will follow patient's progress and discuss the plan of care with the Treatment Team. Yes Case Management/Social Work Evaluation and Plan Arrived from prior to admission home/apartment/condo Lives with Spouse Services Prior to Admission None Patient Requires Transition of Care Intervention Due To Readmission within the last 30 days Prior to Hospitalization: Assistance Needed/DME being used None Documented Insurance Accurate Yes Any financial concerns related to anticipated discharge needs No Patient's home address verified Yes Patient's PCP of record verified Yes Last Date Seen by PCP 0-3 months Source of Clinical History Patient's clinical history has been reviewed and source of Information is: Medical Record Discharge Planning Coordination Recommendations Discharge Planning Coordination Recommendations Home with MD follow-up/No needs identified Branch Banker/Diploma Maker reviewed plan of care/ continuum of care need's with Patient, Interdisciplinary Team, Discharge Planning Rounds Housing / Transportation/ Environment What is your living situation today? I have a steady place to live Think about the place you live. Do you have problems with any of the following? None In the past 12 months has the [employer], gas, oil, or water [employer] threatened to shut off services in your home? No Within the past 12 months, you worried that your food would run out before you got the money to buymore. Never true Within the past 12 months, the food you bought just didn't last and you didn't have money to get more. Never true In the past 12 months, has lack of transportation kept you from medical appointments or from getting medications? no In the past 12 months, has lack of transportation kept you from meetings, work, or from getting things needed for daily living? No Abuse Screen Is there anyone in your life that is hurting or threatening you in anyway? no Read to patient We know that many of our patients and caregivers are exposed to violence in the home so we have started letting everyone know that [place] has a safe, confidential and free 01/10 [address]line [address] [place] Safe Connect no education not provided Would it be ok if we add this resource to your [place] paperwork? no Abuse Screen (yes response referral indicated) Able to respond to abuse questions Yes Is there anyone in your life that is hurting or threatening you in anyway? no Physical Indicators of Abuse No evidence of physical abuse Read to patient We know that many of our patients and caregivers are exposed to violence in the home so we have started letting everyone know that [place] has a safe, confidential and free 01/10 [address]line [address] [place] Safe [place] no education not provided Would it be ok if we add this resource to your [place] paperwork? no manager audit will continue to follow patient as she progresses towards discharge. Arely Archibald RN Care Management Department [facility] * Plan of Care - Erica Laboy RN - 02/02/2025 10:51 PM EST Plan of Care Overview/ Patient Status [id number] Pain well controlled with PRN oxycodone and IVP dilaudid. Pt sleeping in between care. Neuro: Alert and oriented to person, place, time and situation. CV: NSR on telemetry. Denies chest pain. Resp: Room air. Denies shortness of breath. GI Last Bowel Movement: 02/01/25 : Continent. Urine strained as ordered. Yellow urine with brown sediment, aware. Skin:Turns and repositions independently. Pt remains on pressure reduction mattress. Access: PIV Mobility: Independent Significant events from this shift: none Problem: Adult Inpatient Plan of Care Goal: Plan of Care Review Outcome: Interventions implemented as appropriate Flowsheets (Taken 02/02/20252250) Progress: no change Plan of Care Reviewed With: patient * Treatment Plan - Bailey Persaud MD - 02/02/2025 10:04 PM EST Images from the original note were not included. [facility] Endocrine Progress Note Attending Provider: Uriel Kaplan MD Impression: Paul Estrella is a 39 y.o. female with Graves disease admitted for hyperthyroidism in the setting of missed PTU doses. Recommendations: -Would recommend increasing PTU to 150mg TID -repeat free T4, total T3, and LFTs in 2 days. -monitor CBC for agranulocytosis -Will consider switching patient back to methimazole once stabilized due to lower risk of liver toxicity. Patient discussed with attending. Subjective: Interim History: Repeat TFTs today notable for increased free T4 from yesterday to 5.57 from 5.02 on 01/31. Total T3 decreased to 274 from 309. Objective: Vitals: Vitals: 02/02/25 1600 02/02/25 1735 02/02/25 1844 02/02/252002 BP: 107/69 110/72 (!) 97/54 Pulse: 86 (!) 95 87 Resp: 20 18 Temp: 99.2 ??F (37.3 ??C) TempSrc: Oral SpO2: 100% 100% 99% Weight: 67.9 kg Height: 5' 6 (1.676 m) Labs: I have reviewed the patient's labs within the last 24 hrs. Significant findings are Component Ref Range & Units 02/02/25 4:35 AM 01/31/25 11:19 PM T3, Total See Comment ng/dL 274.0 High 309.0 High CM Component Ref Range & Units 02/02/25 4:35 AM 01/31/25 11:19 PM Free T4 See Comment ng/dL 5.57 High 5.01 High CM Component Ref Range & Units 02/02/25 4:35 AM 02/01/25 6:23 AM 01/31/25 11:19 PM WBC 4.0 - 11.0 x1000/??L 7.6 7.7 8.3 RBC 4.00 - 6.00 M/??L 4.04 4.21 4.47 Hemoglobin 11.7 - 15.5 g/dL 11.9 12.0 13.5 Hematocrit 35.00 - 45.00 % 35.00 37.00 38.60 MCV 80.0 - 100.0 fL 86.6 87.9 86.4 MCH 27.0 - 33.0 pg 29.5 28.5 30.2 MCHC 31.0 - 36.0 g/dL 34.0 32.4 35.0 RDW-CV 11.0 - 15.0 % 12.7 12.9 12.7 Platelets 150 - 420 x1000/??L [phone] Bailey Persaud MD Endocrine Fellow * Plan of Care - May Valladares RN - 02/02/2025 7:46 PM EST Plan of Care Overview/ Patient Status 2387-2225 Pt is a female. Pt with moderate abdominal/ perineum pain at this time. One time dose of Toradol administered. Neuro: A&Ox4. Patient reporting increasing anxiety. IV Ativan administered with improvement. CV: No complaints of chest pain. Tele monitoring. NSR HR 90s. Resp: RA. No cough. Patient reports shortness of breath at times due to anxiety. GI Last Bowel Movement: 02/01/25. Continent of bowel. Patient reports having diarrhea recently. Regular diet, pills whole. Poor appetite due to nausea, PRN zofran administered, little improvement. IVreglan administered. Continent of urine. Patient reporting dysuria, pending urine culture collection, urine to be strained. Skin: Intact. See skin flowsheet. T+P q2h, independently. Skin check performed. Does not have foam dressing to coccyx in place. Pt remains on pressure reduction mattress and heels elevated off bed. Restraints: None. Access Periph IV 02/02/25 1217 dorsum left arm pfxl-ftx-rcbfkc catheter system 20 gauge Nurse (Active) SiteCare/Dressing Status/Securement dressing dry and intact 02/02/25 1534 Date Dressing Applied/Changed 02/02/25 02/02/25 1315 Next Date Dressing Change 02/09/2025 02/02/25 1315 Lumen 1 Patency/Care Patent;flushed w/o difficulty 02/02/25 1534 Site Signs asymptomatic without redness, warmth, swelling, pain, palpable cord, streak formation, drainage, dressing intact 02/02/25 153 Phlebitis 0-->no symptoms 02/02/25 153 Infiltration/Extravasation Assessment 0-->no symptoms 02/02/25 153 Patient Education Instructed to call nurse if site is painful,red,swollen, burning;Instructed to keep IV site dry;Instructed to call nurse if fluid leaking from site 02/02/25 153 Daily Review of Necessity completed 02/02/251533 Mobility: [facility] Mobility Score: 22 SBA OOB. Bed alarm in place, all safety measures implemented. Isolation Precautions: None. Significant events from this shift: Spouse at bedside, supportive of patient. Admission Note Nursing Paul Estrella is a 39 y.o. female admitted with a chief complaint of nausea, anxiety, palpitations,s/p ureteral stent placement. Patient arrived from PACU. Vitals: 02/02/25 1504 02/02/25 1600 02/02/25 1735 02/02/25 1844 BP: 122/82 107/69 110/72 Pulse: 68 86 (!) 95 Resp: 20 20 Temp: 98.4 ??F (36.9 ??C) TempSrc: Oral SpO2: 99% 100% 100% Weight: (P) 70.5 kg 67.9 kg Height: 5' 6 (1.676 m) Oxygen therapy Oxygen Therapy SpO2: 100 % Device: room air I have reviewed the patient's current medication orders.. I have reviewed patient valuables Belongings charted in last 7 days: Patient Valuables Patient Valuables Flowsheet PATIENT VALUABLE(S) Purse Disposition At bedside/locker/closet 02/02/25 174 Vision Disposition At bedside/locker/closet 02/02/25 174 Wallet Disposition At bedside/locker/closet 02/02/25 1746 Clothing Disposition At bedside/locker/closet 02/02/25 174 Other disposition To/From OR/ProceduralArea 02/02/25 1308 Cell phone disposition At bedside/locker/closet 02/02/25 174 See flowsheets, patient education and plan of care for additional information. Problem: Adult Inpatient Plan of Care Goal: Plan of Care Review Outcome: Interventions implemented as appropriate Flowsheets (Taken 02/02/2025 1534) Plan of Care Reviewed With: patient spouse * Admission / Intake - Maria Esther Otto RN - 02/02/2025 4:45 PM EST Admission assessment completed with patient and VRN. Pt is a/o x4 but sleepy. All questions answered. C/o nausea, Bedside RN administering medication during assessment. RN updated. * Perioperative Nursing - Frannie Conroy RN - 02/02/2025 1:22 PM EST PACU to Floor Nursing Transfer Note Preop Diagnosis: Nephrolithiasis [N20.0] Procedure Done: Nephrolithiasis [N20.0] Nerve Block: N/A Any Significant Events Intra-Op: none Abnormal Assessment in PACU: none Level of Consciousness: alert , oriented, and lethargic Last Set of VS: Vitals: 02/02/25 0903 02/02/25 1045 02/02/25 1100 02/02/25 131 BP: 102/71 104/76 138/70 Pulse: (!) 93 82 79 Resp: 18 17 Temp: 97.4 ??F (36.3 ??C) (!) 96.1 ??F (35.6 ??C) TempSrc: Oral Temporal SpO2: 98% 98% 99% Weight: 72.6 kg Height: 5' 6 (1.676 m) Device: room air Baseline Neuro/developmental Status: WDL Labs Collected: N/A Special Needs of the Patient: none Antibiotics: last dose given in OR: see mar IV Access: Periph IV 02/02/25 1217 dorsum left arm rivj-vvo-qknbxu catheter system 20 gauge Nurse (Active) SiteCare/Dressing Status/Securement dressing dry and intact 02/02/251314 Date Dressing Applied/Changed 02/02/25 02/02/251314 Next Date Dressing Change 02/09/2025 02/02/251314 Lumen 1 Patency/Care Patent;flushed w/o difficulty 02/02/251314 Site Signs asymptomatic without redness, warmth, swelling, pain, palpable cord, streak formation, drainage, dressing intact 02/02/251314 Phlebitis 0-->no symptoms 02/02/251314 Infiltration/Extravasation Assessment 0-->no symptoms 02/02/251314 Patient Education Instructed to call nurse if site is painful,red,swollen, burning;Instructed to call nurse if fluid leaking from site;Instructed to keep IV site dry 02/02/251314 Daily Review of Necessity completed 02/02/251314 IV Fluids: dextrose 5 % in water (D5W) 100 mL/hr (02/02/25 0821) Pain Assessment: Number Scale (0-10) 02/02/251317 perineum-Pain Rating (0-10): Rest: 0 Body Position: independent Head of Bed (HOB) Positioning: HOB at 20-30 degrees Time of Last Void or Time that Urinary Catheter was Removed Intra-Op: has not voided Additional Info: Received pt s/p cystourethoroscopy with insert of indwelling ureteral stent. (Stent inside pt). No labs or imaging ordered in pacu. Plan to tx to 97. See vsfs for details. Contact RN (name and phone number): Frannie Conroy NR * Transfer Note - Chris Gardiner MD - 02/02/2025 11:34 AM EST Images from the original note were not included. [facility] Medicine Service Resident Inpatient Transfer Note Patient: Paul Estrella, a 39 y.o. female Attending Provider: Dontae Rodriguez MD Admission Date: 01/31/2025 Hospital Day: Hospital Day: 3 Admission Diagnosis: Graves disease [E05.00] Hyperthyroidism [E05.90] Nephrolithiasis [N20.0] Mediastinal mass [J98.59] Acute cystitis with hematuria [N30.01] Right nephrolithiasis [N20.0] Malnutrition, unspecified type (HC Code) [E46] ID Paul Estrella is a 39 y.o. female with hx anxiety, hyperthyroid 2020 (not on tx) c/b recent dx Graves disease w associated anterior mediastinal mass, R>L nephrolithiasis s/p recent OSH admission for thyroid storm p/f worsening Graves and R flank pain Recently admitted 01/19-01/30 to [facility] for nausea, tremulousness, significant anxiety, and palpitations found w/ positive TSI indicating Graves disease. 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 CT imaging that admission notable for anterior mediastinal mass c/f abnormal thymic tissue (LDH 314, Uric Acid 4.7, defer bx given thyroid storm, f/u MRI in 3 mo), scattered 4mm pulm nodules, stable R-sided calculi 7 and 8 mm and unchanged adjacent pelviectasis, L-sided ?6mm calculus, 2.8cm R-sided ovarian cyst. UA w/ small leuk esterase, small blood s/p 1x levofloxacin. Per EMR seen by Urology who deferred stent placement iso active hyperthyroidism, nonobstructive stones. Discharged with plans to c/w PTU 100mg TID and propranolol 40mg TID (trialed on methimazole 30mg TID w/o suppression of T4). Tried multiple outpt pharmacies, unable to obtain PTU. Patient told it would come from an out of state pharmacy and would not be here for 5-7 days. Presented to [facility] ED 01/31/2025 accompanied by hoping for improved symptomatic mgmt, appropriate medication dispense, and further workup of hermass. In the ED 01/31, tremulous, could not walk w/o assistance, diarrhea, severe 10/10 anxiety, does notwant to take xanax for acute on chronic anxiety iso Graves (worried about addictive potential, oversedation and inability to care for 2yo child at home). R flank pain 10/10 improving to 4/10 after pain medication. Denied fever, chills, hematuria, dysuria. Seen by Endo, rec continuation of PTU 100mgTID given previous response. 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 Renal ultrasound notable for dilation of proximal lower pole ureter (partially duplicated collecting system), bilateral non-obstructing stones. Urology consulted now s/p cystoscopy and R ureteral stent placement. Interval VSS. Total T3 downtrending today, however increase in free T4. Labs otherwise largely unremarkable.Spoke w/ patient after R ureteral stent. Moved to [place] 3 years ago, never got a PCP as focused on caring for children. 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 Continues to be tremulous, acute on chronic anxiety for which she would like a xanax alternative. Continued R flank pain w/o. No fever. Objective Current Medications: Scheduled: Current Facility-Administered Medications Medication Dose Route Frequency Provider Last Rate Last Admin ciprofloxacin HCl (CIPRO) tablet 500 mg 500 mg Oral Q12H Manjinder Maguire MD 500 mg at 02/02/25 0539 [Transfer Hold] enoxaparin (LOVENOX) syringe 40 mg 40 mg Subcutaneous Daily Manjinder Maguire MD 40 mg at 02/01/25 0818 [Transfer Hold] ketorolac (TORadol) injection 15 mg 15 mg IV Push Once Xavier Duke MD [Transfer Hold] multivitamin with folic acid (THERAGRAN) tablet 1 tablet 1 tablet Oral Daily Manjinder Maguire MD 1 tablet at 02/02/25 0813 [Transfer Hold] propranoloL (INDERAL) immediate release tablet 40 mg 40 mg Oral Q8H Dontae Rodriguez MD [Transfer Hold] propylthiouraciL (PTU) tablet 100 mg 100 mg Oral 3 times daily Brown Allred MD 100 mg at 02/02/25 0813 [Transfer Hold] tamsulosin (FLOMAX) 24 hr capsule 0.4 mg 0.4 mg Oral Nightly Dontae Rodriguez MD 0.4 mg at 02/01/25 2220 PRN: [Transfer Hold] acetaminophen, [Transfer Hold] ALPRAZolam, [Transfer Hold] HYDROmorphone, [TransferHold] hydrOXYzine, [Transfer Hold] morphine, [Transfer Hold] ondansetron (ZOFRAN) IV Push Continuous: dextrose 5 % in water (D5W) 100 mL/hr (02/02/25 0821) Allergies: is allergic to iodinated contrast media. Vitals (Last 24 Hrs): Temp: [97.4 ??F (36.3 ??C)-98.3 ??F (36.8 ??C)] 97.4 ??F (36.3 ??C) Pulse: [51-99] 82 Resp: [18-20] 18 BP: (91-120)/(54-89) 104/76 SpO2: [97 %-100 %] 98 % Device: room air Wt Readings from Last 3 Encounters: 02/02/25 72.6 kg I/O's (Last 24 Hrs): No intake or output data in the 24 hours ending 02/02/25 1135 Physical Exam: General: Appears stated age, uncomfortable, BLE tremulous, by bedside and supportive HEENT: Normocephalic, atraumatic. EOMI CV: Regular rate and rhythm, S1/S2 present, no appreciable murmurs, rubs, or gallops. Pulm: Non-labored breathing, lungs clear bilaterally anteriorly, no wheezes, crackles, or rhonchi Abd: Bowel sounds present. Soft, non-tender, non-distended abdomen without guarding or rebound tenderness. Ext: Warm and perfused, no LE pitting edema, no clubbing or cyanosis Neuro: A&Ox4. CN II-XII grossly intact. Skin: No rashes, lesions. Psych: Appropriate thought content and speech. Diagnostic Studies CBC/BMP: Recent Labs Lab 01/31/25231802/01/2562202/02/25 043 WBC 8.3 7.7 7.6 HGB 13.5 12.0 11.9 PLT 366 312 284 NA 140 140 140 K 4.0 3.5 3.9 CO2 21 24 23 ANIONGAP 16 11 11 BUN 11 7 9 CREATININE 0.47 0.55 0.48 Lytes, Coags, LFTs: Recent Labs Lab 01/31/25231802/01/2562202/02/25 0435 CALCIUM 9.8 9.5 9.5 MG 1.7 -- -- PHOS 4.1 -- -- BILITOT 0.3 -- -- BILIDIR 0.1 -- -- ALT 21 -- -- AST 37* -- -- ALBUMIN 4.3 3.8 -- Glucose Trend: Recent Labs Lab 01/31/25231802/01/2562202/02/25 0435 GLU 109* 114* 94 Troponins: No results for input(s): TROPONINT in the last 168 hours. pHart: No results for input(s): PHART , QBB4XXI , PO2ART , ZLU3OQA , W4HICZFL , LITERFLOW inthe last 168 hours. 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 Report initiated by: Dick Madrigal MD Reported and signed by: Ana M Moreira MD [facility] US Renal Result Date: 02/01/2025 There is redemonstration of dilatation of the proximal ureter of the lower pole , similar compared to outside CT examination. Redemonstration of bilateral renal calculi, in similar position compared to outside CT examination, as described above. The bilateral ureteral jets are visualized. [facility] Radiology Notify System Classification: Routine. Report initiated by: Tariq Zee MD Reported and salazar d by: Jr Cosby MD [facility] CT Chest/abdomen+pelvis w/o contrast Result Date: 01/26/2025 Limited noncontrast examination. 1. Anterior mediastinal mass concerning for abnormal thymic tissuewith significant enlargement. Recommend correlation with MRI of the chest with and without intravenous contrast. 2. Trace bronchial wall thickening with a few regions of mild bronchiectasis suggesting small airways disease. 3. A few up to 4 mm pulmonary nodules, nonspecific potentially infectious/inflammatory. Recommend follow-up with CT chest in 3-6 months. 4. Similar to minimally increased trace stranding around right-sided pelviectasis with stable adjacent 7 and 8 mm renal calculi, nonspecific could represent intermittent obstruction with reactive changes, although superimposed infection not excluded. 5. Stable nonobstructive left-sided renal calculi. 6. Simple appearing cyst in the right ovary measuring up to 2.8 cm, almost certainly benign. Consider follow-up with pelvic ultrasound in 4-6 weeks. US Thyroid Result Date: 01/24/2025 Heterogeneous thyroid gland with increased vascularity suggesting thyroiditis. No discrete thyroid nodules. ACR TI-RADS RECOMMENDATION REFERENCE: Ultrasound- guided fine-needle aspiration, followup ultrasound, no further follow up. * TR1 (0 point) and TR2 (2 points): No FNA or follow up. * TR3 (3 points): FNA if more than or equal to 2.5 cm in maximum dimension, followup ultrasound in 1, 3 and 5 years if 1.5 to 2.4 cm in maximum dimension. * TR4 (4-6 points): FNA if more than or equal to 1.5 cm in maximum dimension, followup ultrasound in 1, 2, 3 and 5 years if 1 to 1.4 cm in maximum dimension. * TR5 (more than or equal to 7 points): FNA if more than or equal to 1 cm in maximum dimension, followup ultrasound every year for 5 years if 0.5 to 0.9 cm in maximum dimension. * TR3, TR4 or TR5 nodules that are below the size threshold for followup receive no follow up. CT Head w/o contrast Result Date: 01/22/2025 1. No acute intracranial abnormality. CT Abdomen+pelvis w/o contrast Result Date: 01/21/2025 Obstructing 0.8 cm and 0.7 cm right renal calculi with mild hydronephrosis and moderate hydroureter. Recommend urologic evaluation. Nonobstructing left renal calculi. (Attending addendum/clarification: As noted above, an 8 mm and a 7 mm calculus are present in the interpolar pelvis of the right kidney. These calculi appear to reside proximal to the right ureteropelvic junction. Partial visualization is made of a mildly prominent right extrarenal pelvis. No right- sided perinephric inflammatory changes or perinephric fluid collections. The calculi noted above may represent nonobstructing calculi in close proximity to the right ureteropelvic junction which could be associated with intermittent obstruction. The current examination demonstrates no active perinephric inflammatory changes or hydronephrosis to definitively suggest active obstruction. No right ureteral calculi identified. Overall, bilateral nonobstructing renal calculi are present as detailed above. No definitive acute abnormalities identified.) This attending addendum was discussed with Merary Smith telephone at 01/21/2025 2:31 AM SLEEP MEDICINE PHYSICIAN and it was ascertained that the content and urgency of the report was understood at the time of direct communication. Interpreted by: Jabari Carmichael MD Label Paster I personally reviewed the images and the resident's preliminary report and AGREE with the report as it is now presented ([id number]). No results found. Cardiac EKG: Results for orders placed or performed during the hospital encounter of 01/31/25 EKG Result Value Ref Range Heart Rate 105 bpm QRS Interval 77 ms QT Interval 331 ms QTC Interval 439 ms P [place] 29 deg QRS [place] 37 deg T Wave [place] 57 deg P-R Interval 129 msec SEVERITY Borderline ECG severity TTE:No results found for this or any previous visit. Louise Estrella is a 39 y.o. female with hx anxiety, Graves disease w associated anterior mediastinalmass, R>L nephrolithiasis p/w Graves thyroiditis and R flank pain s/p R ureteral stent Plan #Graves disease Initially treated at OSH with methimazole up to 30 mg TID. Later transitioned to PTU as free T4 levels remained >7 with methimazole. Also treated with propranolol and cholestyramine. By discharge her fT4 improved to 4.46. Cholestyramine was discontinued. Could not obtain PTU outpatient, now returning w/ worsening Graves. -appreciate Endo recs -c/w PTU 100 mg TID -c/w propranolol 40 mg TID. Titrate to goal HR<90. -daily LFTs, CBC -daily fT4, total T3 -Avoid iodinated contrast as it can worsen hyperthyroidism. -c/w diazepam BID PRN, atarax q6h PRN for anxiety #R nephrolithiasis s/p ureteral stent #Duplicated R collecting system, partial 2 stones in the right UPJ w/theoretical intermittent obstruction on renal u/s. S/p right ureteral stent 02/02 -Appreciate Uro recs -flomax 0.4mg nightly -pain control -oxy 5mg q4h PRN for mod pain -oxy 10mg q4h PRN for severe pain -dilaudid 1mg IV q6h PRN for breakthrough -miralax PRN (given patient has diarrhea iso hyperthyroidism) -Strain all urine #Pyuria Pyuria on recent UA, no clear evidence of infection. S/p levofloxacin IV at OSH, cipro PO BID here.Will d/c as currently no dysuria, unclear whether truly has infection. Urology says no indication for abx after stent. 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 LDH only slightly elevated, uric acid normal. HIV negative. Flow sent at OSH, -Appreciate Onc recs -f/u GALA, flow cytometry -repeat chest imaging in 6mo after euthyroidism (or sooner if symptoms of local progression) If< 50% regression of the mass, biopsy or thymectomy should be reconsidered to r/o malignancy. #Hospital Checklist: Activity: OOB as tolerated PT/OT: Ongoing DVT Px: lovnox ppx Code: FULL CODE Access: PIV Diet: Regular Fluids: None Barriers to Dispo: Pending pain ctrl, thyroiditis Communication Primary Emergency Contact: Jose Estrella Signed: Chris Gardiner MD [facility] Internal Medicine, PGY-3 Available on [employer] February 02, 2025 Please await attending attestation and addendum to follow. Cosigned by Uriel Kaplan MD at 02/02/2025 5:39 PM EST Associated attestation - Uriel Kaplan MD - 02/02/2025 5:39 PM EST I agree with the note as is documented below. Patient was seen and examined by me today. Case and plan was discussed with Dr. Gardiner. Paul Estrella is a 39-year-old female who is admitted with multiple active issues including but notlimited to symptomatic hyperthyroidism iso inadequately- treated Graves' disease (TSI+; presently onPTU 2/2 inadequate response to methimazole and propranolol) and right flank pain and nausea iso nephrolithiasis (more sizable stones on the right with adjacent pelviectasis) now s/p cystoscopy with placement of a right ureteral stent (02/02). We appreciate the subspecialty teams' (including endocrinology, urology, and medical oncology) efforts/recs. We will follow TFTs including free T4 and total T3 daily for now, while adjusting the propranolol for a HR goal < 90 (being mindful of some softer BPs and transient bradycardia noted as well). Continue newly-started tamsulosin and follow urinary output, labs, and symptoms. 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 As such, she will have repeat chest imaging 6 months after achievement of euthyroidism, at which time a biopsy would be indicated if there is less than a 50%regression in size noted. Medical decision making for this patient was high. I spent 45 minutes today on this encounter before, during, and after the visit, reviewing labs and records, evaluating and examining the patient, entering orders and documenting the visit. Electronic Signature Uriel Kaplan MD 02/02/25 5:24 PM * Operative Note - Rodriguez Shukla MD - 02/02/2025 10:56 AM EST [facility] OPERATIVE REPORT CONFIDENTIAL - DO NOT COPY WITHOUT APPROPRIATE AUTHORIZATION Name: Paul Estrella CSN: [id number] Service Area: Urology Date of : 1985 Dictated by: Quentin Bartlett MD DATE OF PROCEDURE/SURGERY: 02/02/2025 OPERATION: Cystoscopy, placement of right ureteral stent SYSTEM PROGRAMMER: Rodriguez Shukla MD CLINIC COORDINATOR: Aimee Baig MD ANESTHESIOLOGIST: ANESTHESIOLOGIST: Panchito Martinez MD ANESTHESIA: General. PREOP DIAGNOSIS: Nephrolithiasis [N20.0] POSTOP DIAGNOSIS: Same ESTIMATED BLOOD LOSS: Minimal. SPECIMENS REMOVED: None. PREPARATION: Betadine. IV FLUIDS: Per anesthesia record URINARY OUTPUT: Not recorded. COMPLICATIONS: None. INDICATIONS: This a 39 y.o. female with an intermittently obstructing right UPJ stone with ongoing pain. She does not have an ARIS or UTI. PROCEDURE: The patient was brought into the room, where a protocol timeout was undertaken confirming the patient's identity, procedure to be completed as well as any surgical or anesthesia concerns. Perioperative Ancef was given. After induction of general anesthesia the patient was placed in the dorsal lithotomy position where all pressure points were padded and bilateral sequential compression devices were applied to the lower extremities. An additional pause was performed to confirm operative plans, patient identification, and laterality. The patient was prepped with betadine and draped in the usual sterile fashion. The bladder was first entered atraumatically using a 30-degree cystoscope and a 22-Kyrgyz sheath. Routine surveillance cystoscopy did not reveal any abnormalities. Bilateral ureteral orifices were in their orthotopic positions. The right ureteral orifice was first cannulated using a 5-Kyrgyz open-ended catheter over a 0.035 Sensor wire without difficulty. Position of the wire in the kidney was confirmed via fluoroscopy. A 6Fr x 24cm double J ureteral stent was then advanced over the wire. Proximal coiling in the kidney confirmed on fluoroscopy. The distal coil was directly visualized in the bladder. The bladder was emptied and the cystoscope removed. A surgical debrief was performed. The patient was awakened from anesthesia and transferred to the PACU in stable condition. IDr. Gayla Michael S, MD was scrubbed and present for all critical portions of the case. Plan: - Follow up with an endo urologist in 2-3 weeks * Plan of Care - oDntae Rodriguez MD - 02/01/2025 3:21 PM EST 39yo woman c past hx of anxiety, hyperthyroidism, medullary sponge kidney, nephrolithiasis s/p lithotripsy and ureteral stenting with recent diagnosis of Thyroid storm who presents from for 2nd opinion for Anterior mediastinal Mass evaluation. Hyperthyroidism During her admission at [facility], patient was initially started on MMI but she remained symptomaticand her free T4 was not appropriately declining despite 30mg TID; she was thus switched to PTU on 01/25, initially 50mg q6h and ultimately discharged on 100mg TID but pt unable to tack picker prescription. Free T4 5.01 higher than T4 that she was discharged with Pt complaining of anxiety, palpitations, tremor, unintentional weight loss, and double vision. Plan - continue PTU 100mg TID - Continue propranolol 60mg TID, titrate to goal HR <90 - Monitor daily FT4, TT3 while patient is admitted Bilateral Non-obstructing Renal stones with R. CVA tenderness US: partially duplicated right collecting system. There are no obstructing stones, but there is slight pelviectasis of the lower pole moiety where there 2 stones near the UPJ which theoretically could be intermittently obstructing. Urology following Plan - NPO after MN for possible procedure (She is a high risk of decompensation due to hyperthyroidism) - Flomax started - Pain control with Morphine PRN - strain all urine - continue Cipro for now given UA findings Anterior Mediastinal mass HIV - negative Plan - Follow up MRI here - Oncology recs - Could not see GALA from [facility] so will re-order with AM labs - Could not see flow cytometry results Anxiety- continue prn alprazolam, prn hydroxyzine Code: Full Code Diet: Regular diet VTE PPx: VTE - pharmacologic prophylaxis: LMW heparin Dispo: Likely home Emergency Contact: (Spoke to him at bedside) Dontae Rodriguez MD Hospitalist Attending [facility] Contact via [employer] Secure chat DISCLAIMER: This note was generated in part using voice recognition software, occasional wrong-wordor [id number] substitutions may have occurred due to the inherent limitations of voice recognition software. Read the chart carefully and recognize, using context, where the substitutions have occurred. Although every effort was made to edit the content, rod pointer and typing errors may occur. Please contact me if clarification of content is felt warranted. All due diligence and care undertaken in caring for this patient. Please review chart with your PCP after discharge for important information. * Utilization Review - Cande Thompson RN - 02/01/2025 4:08 AM EST Utilization Review from [facility] Patient Data: Patient Name: Paul Estrella Age: 39 y.o. : 1985 Indicated Status: Inpatient Review Comments: Pt with recently diagnosed hyperthyroidism, anterior mediastinal mass, R-sided kidney stone, and moderate malnutrition who presents with nausea, tremulousness, significant anxiety, and palpitations. Renal US pending. * Treatment Plan - Brandin Calix MD - 02/01/2025 12:27 AM EST Images from the original note were not included. Brief Endocrinology Note: Paul Estrella is a 39 y.o. female with history of Graves who presents with nausea, tremulousness, significant anxiety, and palpitations. Apparently she came in requesting medication refills for PTU and propranolol as these were sent to a pharmacy in [place] after her hospital discharge 01/30. She was at [facility] 01/20-01/30 due to concerns for thyroid storm. Initial labs with suppressed TSH and high free T4 above measurable limit. Found to have positive TSI consistent with Graves' disease. Perchart, she reported a history of thyroid disorder since 2020 but was not on treatment. Was seen by endocrinology at [facility] and was initially treated with methimazole up to 30 mg TID. Later transitioned to PTU as free T4 levels remained >7 with methimazole. She was also treated with propranololand cholestyramine. By discharge her fT4 improved to 4.46. Cholestyramine was discontinued. LFT. ANC normal. Currently mildly tachycardic up to 112. Would restart her previous regimen. -Continue PTU 100 mg TID -Continue propranolol 40 mg TID. Titrate to goal HR<90. -Follow fT4, total T3 -Would avoid iodinated contrast as it can worsen hyperthyroidism. Cosigned by Katina Vasquez MD at 02/01/2025 12:36 PM EST Associated attestation - Katina Vasquez MD - 02/01/2025 12:36 PM EST Endocrine Attending Addendum I have discussed this patient with our endocrine fellow, Dr. Calix. I agree with the assessment and recommendations of the fellow. See full addendum to note dated 02/01/25 Katina Vasquez MD Clinical Informatics Directorinvestigations manager (Endocrinology) [employer] Electronically Signed by Katina Vasquez MD, February 01, 2025 documented in this encounter Plan of Treatment Upcoming Encounters Date Type Department Care Team (Late st Contact Info) Description 02/11/2025 9:00 AM EST Office Visit [facility] [address] [id number] Katina Vasquez MD 35 [facility] [address] [place] [id number] 02/22/2025 9:00 AM EST Office Visit [facility] at [address] [facility] [address] [place], [place] [address] Anand Robbins MD [address] [place] [phone] Scheduled Orders Name Type Priority Associated Diagnoses Orde r Schedule T4, free Lab Routine Graves disease Expected: 02/10/2025, Expires: 03/11/2025 T3 Lab Routine Graves disease Expected: 02/10/2025, Expires: 03/11/2025 HEPATIC FUNCTION PANEL Lab Routine Graves disease Expected: 02/10/2025, Expires: 03/11/2025 Scheduled Referrals Name Type Priority Associated Diagnoses Order Schedule [facility] Endocrine Oncology Program- [facility] Outpatient Referral Routine Graves disease Ordered: 02/05/2025 Ambulatory referral to Urology Outpatient Referral Routine Nephrolithiasis Ordered: 02/08/2025 documented as of this encounter Procedures Procedure Name Priority Date/Time Associated Diagnosis Comments COMPREHENSIVE METABOLIC PANEL Routine 02/08/2025 4:12 AM EST CBC WITHOUT DIFFERENTIAL Routine 02/08/2025 4:12 AM EST MAGNESIUM Routine 02/08/2025 4:12 AM EST COMPREHENSIVE METABOLIC PANEL Routine 02/08/2025 4:12 AM EST BASIC METABOLIC PANEL Routine 02/07/2025 4:31 AM EST CBC WITH AUTO DIFFERENTIAL Routine 02/07/2025 4:31 AM EST CBC AND DIFFERENTIAL Routine 02/07/2025 4:31 AM EST PHOSPHORUS (BH GH L LMW YH) Routine 02/07/2025 4:31 AM EST MAGNESIUM Routine 02/07/2025 4:31 AM EST HEPATIC FUNCTION PANEL Routine 02/07/2025 4:31 AM EST BASIC METABOLIC PANEL Routine 02/07/2025 4:31 AM EST BASIC METABOLIC PANEL Routine 02/06/2025 5:39 AM EST CBC WITH AUTO DIFFERENTIAL Routine 02/06/2025 5:39 AM EST CBC AND DIFFERENTIAL Routine 02/06/2025 5:39 AM EST PHOSPHORUS (BH GH L LMW YH) Routine 02/06/2025 5:39 AM EST MAGNESIUM Routine 02/06/2025 5:39 AM EST HEPATIC FUNCTION PANEL Routine 02/06/2025 5:39 AM EST BASIC METABOLIC PANEL Routine 02/06/2025 5:39 AM EST URINALYSIS WITH CULTURE REFLEX (BH LMW YH) Urgent 02/05/2025 12:52 PM EST UA REFLEX CULTURE Urgent 02/05/2025 12:52 PM EST URINALYSIS WITH CULTURE REFLEX Urgent 02/05/2025 12:52 PM EST URINE MICROSCOPIC (BH GH LMW YH) STAT 02/05/2025 12:52 PM EST BASIC METABOLIC PANEL Routine 02/05/2025 6:11 AM EST CBC WITH AUTO DIFFERENTIAL Routine 02/05/2025 6:11 AM EST CBC AND DIFFERENTIAL Routine 02/05/2025 6:11 AM EST T3 Routine 02/05/2025 6:11 AM EST T4, FREE Routine 02/05/2025 6:11 AM EST PHOSPHORUS (BH GH L LMW YH) Routine 02/05/2025 6:11 AM EST MAGNESIUM Routine 02/05/2025 6:11 AM EST HEPATIC FUNCTION PANEL Routine 02/05/2025 6:11 AM EST BASIC METABOLIC PANEL Routine 02/05/2025 6:11 AM EST BASIC METABOLIC PANEL Routine 02/04/2025 5:07 AM EST CBC WITH AUTO DIFFERENTIAL Routine 02/04/2025 5:07 AM EST CBC AND DIFFERENTIAL Routine 02/04/2025 5:07 AM EST T3 Routine 02/04/2025 5:07 AM EST T4, FREE Routine 02/04/2025 5:07 AM EST PHOSPHORUS (BH GH L LMW YH) Routine 02/04/2025 5:07 AM EST MAGNESIUM Routine 02/04/2025 5:07 AM EST HEPATIC FUNCTION PANEL Routine 02/04/2025 5:07 AM EST BASIC METABOLIC PANEL Routine 02/04/2025 5:07 AM EST BASIC METABOLIC PANEL Routine 02/03/2025 5:03 AM EST CBC WITH AUTO DIFFERENTIAL Routine 02/03/2025 5:03 AM EST CBC AND DIFFERENTIAL Routine 02/03/2025 5:03 AM EST T3 Routine 02/03/2025 5:03 AM EST T4, FREE Routine 02/03/2025 5:03 AM EST PHOSPHORUS (BH GH L LMW YH) Routine 02/03/2025 5:03 AM EST MAGNESIUM Routine 02/03/2025 5:03 AM EST HEPATIC FUNCTION PANEL Routine 02/03/2025 5:03 AM EST BASIC METABOLIC PANEL Routine 02/03/2025 5:03 AM EST GALA BY IFA W/RFLX TO DSDNA, GUEST SERVICES REPRESENTATIVE, SM, SSA, AND SSB ABS (LMW YH) Routine 02/03/2025 5:02 AM EST URINE CULTURE Urgent 02/02/2025 9:36 PM EST NR FL LESS THAN 1 HOUR EXAM Routine 02/02/2025 1:48 PM EST Right nephrolithiasis LA CYSTOSCOPY,INSERT URETERAL STENT Low Risk 02/02/2025 12:07 PM EST Nephrolithiasis BASIC METABOLIC PANEL Routine 02/02/2025 4:35 AM EST CBC WITH AUTO DIFFERENTIAL Routine 02/02/2025 4:35 AM EST CBC AND DIFFERENTIAL Routine 02/02/2025 4:35 AM EST T3 Routine 02/02/2025 4:35 AM EST T4, FREE Routine 02/02/2025 4:35 AM EST BASIC METABOLIC PANEL Routine 02/02/2025 4:35 AM EST MRI CHEST W WO IV CONTRAST Within 4 hours (Urgent) 02/01/2025 2:01 PM EST BASIC METABOLIC PANEL Routine 02/01/2025 6:23 AM EST CBC WITH AUTO DIFFERENTIAL Routine 02/01/2025 6:23 AM EST CBC AND DIFFERENTIAL Routine 02/01/2025 6:23 AM EST PREALBUMIN Timed 02/01/2025 6:23 AM EST ALBUMIN Timed 02/01/2025 6:23 AM EST BASIC METABOLIC PANEL Routine 02/01/2025 6:23 AM EST US RENAL Within 24 hours (Routine) 02/01/2025 2:17 AM EST POCT URINE STAT 02/01/2025 1:02 AM EST URINE MICROSCOPIC (BH GH LMW YH) STAT 02/01/2025 12:09 AM EST URINALYSIS-MACROSCO PIC W/REFLEX MICROSCOPIC STAT 02/01/2025 12:09 AM EST BASIC METABOLIC PANEL STAT 01/31/2025 11:19 PM EST TSH W/REFLEX TO FT4 ( GH LMW Q YH) Timed 01/31/2025 11:19 PM EST HCG, QUANTITATIVE (BH GH LMW YH) Add-On 01/31/2025 11:19 PM EST CBC WITH AUTO DIFFERENTIAL STAT 01/31/2025 11:19 PM EST CBC AND DIFFERENTIAL STAT 01/31/2025 11:19 PM EST T3 Add-On 01/31/2025 11:19 PM EST T4, FREE Routine 01/31/2025 11:19 PM EST PHOSPHORUS ( GH L LMW YH) STAT 01/31/2025 11:19 PM EST MAGNESIUM STAT 01/31/2025 11:19 PM EST HEPATIC FUNCTION PANEL Add-On 01/31/2025 11:19 PM EST BASIC METABOLIC PANEL STAT 01/31/2025 11:19 PM EST EKG STAT 01/31/2025 8:19 PM EST documented in this encounter Results * (ABNORMAL) Comprehensive metabolic panel (02/08/2025 4:12 AM EST) Sodium 141 136 - 144 mmol/L 02/08/2025 5:[address] [facility] DEPARTMENT OF LABORATORY MEDICINE Potassium 4.0 3.3 - 5.3 mmol/L 02/08/2025 5:[address] [facility] DEPARTMENT OF LABORATORY MEDICINE Chloride 106 98 - 107 mmol/L 02/08/2025 5:[address] [facility] DEPARTMENT OF LABORATORY MEDICINE CO2 25 20 - 30 mmol/L 02/08/2025 5:[address] [facility] DEPARTMENT OF LABORATORY MEDICINE Anion Gap 10 7 - 17 02/08/2025 5:[address] [facility] DEPARTMENT OF LABORATORY MEDICINE Glucose 96 70 - 100 mg/dL 02/08/2025 5:[address] [facility] DEPARTMENT OF LABORATORY MEDICINE BUN 8 6 - 20 mg/dL 02/08/2025 5:[address] [facility] DEPARTMENT OF LABORATORY MEDICINE Creatinine 0.61 0.40 - 1.30 mg/dL 02/08/2025 5:[address] [facility] DEPARTMENT OF LABORATORY MEDICINE Calcium 9.2 8.8 - 10.2 mg/dL 02/08/2025 5:[address] [facility] DEPARTMENT OF LABORATORY MEDICINE BUN/Creatinine Ratio 13.1 8.0 - 23.0 02/08/2025 5:[address] [facility] DEPARTMENT OF LABORATORY MEDICINE Total Protein 5.9 5.9 - 8.3 g/dL 025 5:[address] [facility] DEPARTMENT OF LABORATORY MEDICINE Albumin 3.2(L) 3.6 - 5.1 g/dL 02/08/2025 5:[address] [facility] DEPARTMENT OF LABORATORY MEDICINE Total Bilirubin 0.4 <=1.2 mg/dL 02/09/20 25 5:[address] [facility] DEPARTMENT OF LABORATORY MEDICINE Alkaline Phosphatase 68 9 - 122 U/L 02/08/2025 5:[address] [facility] DEPARTMENT OF LABORATORY MEDICINE Alanine Aminotransferase (ALT) 101(H) 10 - 35 U/L 02/08/2025 5:[address] [facility] DEPARTMENT OF LABORATORY MEDICINE Comment:Calcium dobesilate c an cause artificially low ALT results at therapeutic concentrations Aspartate Aminotransferase (AST) 69(H) 10 - 35 U/L 02/08/2025 5:[address] [facility] DEPARTMENT OF LABORATORY MEDICINE Globulin 2.7 2.0 - 3.9 g/dL 02/08/2025 5:[address] [facility] DEPARTMENT OF LABORATORY MEDICINE A/G Ratio 1.2 1.0 - 2.2 02/08/2025 5:[address] [facility] DEPARTMENT OF LABORATORY MEDICINE AST/ALT Ratio 0.7 Reference Range Not Established 02/08/2025 5:[address] [facility] DEPARTMENT OF LABORATORY MEDICINE eGFR (Creatinine) >60 >=60 mL/min/1.73m2 02/08/2025 5:[address] [facility] DEPARTMENT OF LABORATORY MEDICINE Comment: [facility] utilizes CKD-EPI Creatinine 2020 to report eGFR. Values < 60 mL/min/1.73 m2 may indicate CKD if present for more than three months AND creatinine is at steady state. The eGFR provides a rough estimate of kidney function. For further guidance, please refer to the CKD: Adult Diesel Engine Mechanic Apprentice Signature pathway. Creatinine Delta 0.03 See Comment 025 5:[address] [facility] DEPARTMENT OF LABORATORY MEDICINE Comment: Delta creatinine is the difference between the current creatinine and the most recent prior creatinine (if available within the previous 12 months). It is intended to detect significant changes in kidney function for patients whose creatinine is <5 mg/dL. A delta is not calculated for patients whose baseline creatinine is >=5 mg/dL or those who do not have a baseline within the last year. The following deltas will flag as critical (triggering a call from the laboratory): a) Deltas >= +1.5 mg/dL for patients with baseline creatinine <= 1.5 mg/dL. b) Deltas >= +3 mg/dL for patients with baseline creatinine between 1.5 and 5 mg/dL. Blood Venipuncture / Unknown 02/08/2025 4:12 AM EST 02/08/2025 4:47 AM EST Uriel Kaplan MD LAB BLOOD ORDERABLES Final R esult Performing Organization Address City/[facility]/ZIP Co de Phone Number [facility] [address] [place] [address] * (ABNORMAL) Magnesium (02/08/2025 4:12 AM EST) Magnesium 1.5(L) 1.7 - 2.4 mg/dL 02/08/2025 5:[address] [facility] DEPARTMENT OF LABORATORY MEDICINE Blood Venipuncture / Unknown 02/08/2025 4:12 AM EST 02/08/2025 4:47 AM EST Uriel Kaplan MD LAB BLOOD ORDERABLES Final R esult Performing Organization Address [facility] Co de Phone Number [facility] LABORATORY MEDICINE [address] [place] [address] * (ABNORMAL) CBC without differential (02/08/2025 4:12 AM EST) WBC 5.1 4.0 - 11.0 x1000/ L 02/08/2025 4:[address] [facility] DEPARTMENT OF LABORATORY MEDICINE RBC 3.45(L) 4.00 - 6.00 M/ L 02/08/2025 4:[address] [facility] DEPARTMENT OF LABORATORY MEDICINE Hemoglobin 10.3(L) 11.7 - 15.5 g/dL 02/08/2025 4:[address] [facility] DEPARTMENT OF LABORATORY MEDICINE Hematocrit 30.20(L) 35.00 - 45.00 % 02/08/2025 4:[address] [facility] DEPARTMENT OF LABORATORY MEDICINE MCV 87.5 80.0 - 100.0 fL 02/08/2025 4:[address] [facility] DEPARTMENT OF LABORATORY MEDICINE MCH 29.9 27.0 - 33.0 pg 02/08/2025 4:[address] [facility] DEPARTMENT OF LABORATORY MEDICINE MCHC 34.1 31.0 - 36.0 g/dL 02/08/2025 4:[address] [facility] DEPARTMENT OF LABORATORY MEDICINE RDW-CV 12.4 11.0 - 15.0 % 02/08/2025 4:[address] [facility] DEPARTMENT OF LABORATORY MEDICINE Platelets 286 150 - 420 x1000/ L 02/08/2025 4:[address] [facility] DEPARTMENT OF LABORATORY MEDICINE MPV 11.3 8.0 - 12.0 fL 02/08/2025 4:[address] [facility] DEPARTMENT OF LABORATORY MEDICINE ANC (Abs Neutrophil Count) 2.04 2.00 - 7.60 x 1000/ L 02/08/2025 4:[address] [facility] DEPARTMENT OF LABORATORY MEDICINE Blood Venipuncture / Unknown 02/08/2025 4:12 AM EST 02/08/2025 4:47 AM EST Uriel Kaplan MD LAB BLOOD ORDERABLES Final R esult Performing Organization Address City/State/[facility] Co de Phone Number [facility] DEPARTMENT OF LABORATORY MEDICINE [address] [place] [address] * (ABNORMAL) Basic metabolic panel (02/07/2025 4:31 AM EST) Sodium 141 136 - 144 mmol/L 02/07/2025 5:[address] [facility] DEPARTMENT OF LABORATORY MEDICINE Potassium 4.1 3.3 - 5.3 mmol/L 02/07/2025 5:[address] [facility] DEPARTMENT OF LABORATORY MEDICINE Chloride 108(H) 98 - 107 mmol/L 02/07/2025 5:[address] [facility] DEPARTMENT OF LABORATORY MEDICINE CO2 24 20 - 30 mmol/L 02/07/2025 5:[address] [facility] DEPARTMENT OF LABORATORY MEDICINE Anion Gap 9 7 - 17 02/07/2025 5:[address] [facility] DEPARTMENT OF LABORATORY MEDICINE Glucose 107(H) 70 - 100 mg/dL 02/07/2025 5:[address] [facility] DEPARTMENT OF LABORATORY MEDICINE BUN 12 6 - 20 mg/dL 02/07/2025 5:[address] [facility] DEPARTMENT OF LABORATORY MEDICINE Creatinine 0.58 0.40 - 1.30 mg/dL 02/07/2025 5:[address] [facility] DEPARTMENT OF LABORATORY MEDICINE Calcium 9.6 8.8 - 10.2 mg/dL 02/07/2025 5:15 AM EST [facility] DEPARTMENT OF LABORATORY MEDICINE BUN/Creatinine Ratio 20.7 8.0 - 23.0 02/07/2025 5:15 AM EST [facility] DEPARTMENT OF LABORATORY MEDICINE eGFR (Creatinine) >60 >=60 mL/min/1.73 m2 02/07/2025 5:15 AM EST [facility] DEPARTMENT OF LABORATORY MEDICINE Comment: [facility] utilizes CKD-EPI Creatinine 2020 to report eGFR. Values < 60 mL/min/1.73 m2 may indicate CKD if present for more than three months AND creatinine is at steady state. The eGFR provides a rough estimate of kidney function. For further guidance, please refer to the CKD: Adult Diesel Engine Mechanic Apprentice Signature pathway. Creatinine Delta -0.02 See Comment 025 5:[address] [facility] DEPARTMENT OF LABORATORY MEDICINE Comment: Delta creatinine is the difference between the current creatinine and the most recent prior creatinine (if available within the previous 12 months). It is intended to detect significant changes in kidney function for patients whose creatinine is <5 mg/dL. A delta is not calculated for patients whose baseline creatinine is >=5 mg/dL or those who do not have a baseline within the last year. The following deltas will flag as critical (triggering a call from the laboratory): a) Deltas >= +1.5 mg/dL for patients with baseline creatinine <= 1.5 mg/dL. b) Deltas >= +3 mg/dL for patients with baseline creatinine between 1.5 and 5 mg/dL. Blood ARM NEC / Unknown Venipuncture / Unknown 02/07/2025 4:31 AM EST 02/07/2025 4:48 AM EST us Gwen oMrales MD LAB BLOOD ORDERABLES Final Result [facility] DEPARTMENT OF LABORATORY MEDICINE [address] [place] [address] * (ABNORMAL) CBC auto differential (02/07/2025 4:31 AM EST) WBC 6.7 4.0 - 11.0 x1000/ L 02/07/2025 4:57 AM EST [facility] DEPARTMENT OF LABORATORY MEDICINE RBC 3.71(L) 4.00 - 6.00 M/ L 02/07/2025 4:57 AM [facility] LABORATORY MEDICINE Hemoglobin 11.1(L) 11.7 - 15.5 g/dL 02/07/2025 4:57 AM [facility] LABOR[facility]ORY MEDICINE Hematocrit 32.30(L) 35.00 - 45.00 % 02/07/2025 4:57 AM [facility] LABOR[facility]ORY MEDICINE MCV 87.1 80.0 - 100.0 fL 02/07/2025 4:57 AM [facility] OF LABORATORY MEDICINE MCH 29.9 27.0 - 33.0 pg 02/07/2025 4:57 AM [facility] LABORATORY MEDICINE MCHC 34.4 31.0 - 36.0 g/dL 02/07/2025 4:57 AM [facility] LABORATORY MEDICINE RDW-CV 12.3 11.0 - 15.0 % 02/07/2025 4:57 AM [facility] LABOR[facility]ORY MEDICINE Platelets 292 150 - 420 x1000/ L 02/07/2025 4:[address] [facility] DEPARTMENT LABORATORY MEDICINE MPV 11.3 8.0 - 12.0 fL 02/07/2025 4:[address] [facility] DEPARTMENT OF LABORATORY MEDICINE Neutrophils 51.1 39.0 - 72.0 % 02/07/2025 4:[address] [facility] DEPARTMENT OF LABORATORY MEDICINE Lymphocytes 39.0 17.0 - 50.0 % 02/07/2025 4:[address] [facility] DEPARTMENT OF LABORATORY MEDICINE Monocytes 6.4 4.0 - 12.0 % 02/07/2025 4:[address] [facility] DEPARTMENT OF LABORATORY MEDICINE Eosinophils 3.1 0.0 - 5.0 % 02/07/2025 4:[address] [facility] DEPARTMENT OF LABORATORY MEDICINE Basophil 0.3 0.0 - 1.4 % 02/07/2025 4:[address] [facility] DEPARTMENT OF LABORATORY MEDICINE Immature Granulocytes 0.1 0.0 - 1.0 % 02/07/2025 4:[address] [facility] DEPARTMENT LABORATORY MEDICINE nRBC 0.0 0.0 - 1.0 % 02/07/2025 4:[address] [facility] DEPARTMENT OF LABORATORY MEDICINE Absolute Lymphocyte Count 2.60 0.60 - 3.70 x 1000/ L 02/07/2025 4:[address] [facility] DEPARTMENT OF LABORATORY MEDICINE Monocyte Absolute Count 0.43 0.00 - 1.00 x 1000/ L 02/07/2025 4:[address] [facility] DEPARTMENT OF LABORATORY MEDICINE Eosinophil Absolute Count 0.21 0.00 - 1.00 x 1000/ L 02/07/2025 4:[address] [facility] DEPARTMENT OF LABORATORY MEDICINE Basophil Absolute Count 0.02 0.00 - 1.00 x 1000/ L 02/07/2025 4:[address] [facility] DEPARTMENT OF LABORATORY MEDICINE Absolute Immature Granulocyte Count 0.01 0.00 - 0.30 x 1000/ L 02/07/2025 4:[address] [facility] DEPARTMENT OF LABORATORY MEDICINE Absolute nRBC 0.00 0.00 - 1.00 x 1000/ L 02/07/2025 4:[address] [facility] DEPARTMENT OF LABORATORY MEDICINE ANC (Abs Neutrophil Count) 3.40 2.00 - 7.60 x 1000/ L 02/07/2025 4:[address] [facility] DEPARTMENT OF LABORATORY MEDICINE Blood ARM NEC / Unknown Venipuncture / Unknown 02/07/2025 4:31 AM EST 02/07/2025 4:48 AM EST us Gwen Morales MD LAB BLOOD ORDERABLES Final Result Performing Organization Address [facility]/State/[facility] Co de Phone Number [facility] DEPARTMENT OF LABORATORY MEDICINE [address] [place] [address] * (ABNORMAL) Phosphorus (BH GH L LMW YH) (02/07/2025 4:31 AM EST) Phosphorus 5.0(H) 2.2 - 4.5 mg/dL 02/07/2025 5:15 AM EST [facility] DEPARTMENT OF LABORATORY MEDICINE Blood ARM NEC / Unknown Venipuncture / Unknown 02/07/2025 4:31 AM EST 02/07/2025 4:48 AM EST us Gwen Morales MD LAB BLOOD ORDERABLES Final Result [facility] DEPARTMENT OF LABORATORY MEDICINE [address] [place] [address] * Magnesium (02/07/2025 4:31 AM EST) Pathologist [facility] Magnesium 1.7 1.7 - 2.4 mg/dL 02/07/2025 5:15 AM EST [facility] DEPARTMENT OF LABORATORY MEDICINE Blood ARM NEC / Unknown Venipuncture / Unknown 02/07/2025 4:31 AM EST 02/07/2025 4:48 AM EST Gwen Morales MD LAB BLOOD ORDERABLES Final Result Performing Organization Address [facility] Co de Phone Number [facility] DEPARTMENT OF LABORATORY MEDICINE [address] [place] [address] * (ABNORMAL) Hepatic function panel (02/07/2025 4:31 AM EST) Pathologist [facility] Total Bilirubin 0.3 <=1.2 mg/dL 02/08/20 25 5:[address] [facility] DEPARTMENT OF LABORATORY MEDICINE Bilirubin, Direct 0.2 <=0.2 mg/dL 2024 5:[address] [facility] DEPARTMENT OF LABORATORY MEDICINE Comment: Effective 11/26/2024 [facility]-Chemistry changed the Direct Bilirubin testing method from the Martha method to the Randox method. Alkaline Phosphatase 91 9 - 122 U/L 02/07/2025 5:[address] [facility] DEPARTMENT OF LABORATORY MEDICINE Alanine Aminotransferase (ALT) 107(H) 10 - 35 U/L 02/07/2025 5:[address] [facility] DEPARTMENT OF LABORATORY MEDICINE Comment:Calcium dobesilate c an cause artificially low ALT results at therapeutic concentrations Aspartate Aminotransferase (AST) 87(H) 10 - 35 U/L 02/07/2025 5:[address] [facility] DEPARTMENT OF LABORATORY MEDICINE AST/ALT Ratio 0.8 Reference Range Not Established 02/07/2025 5:[address] [facility] DEPARTMENT OF LABORATORY MEDICINE Total Protein 6.3 5.9 - 8.3 g/dL 025 5:[address] [facility] DEPARTMENT OF LABORATORY MEDICINE Albumin 3.5(L) 3.6 - 5.1 g/dL 02/07/2025 5:[address] [facility] DEPARTMENT OF LABORATORY MEDICINE Globulin 2.8 2.0 - 3.9 g/dL 02/07/2025 5:[address] [facility] DEPARTMENT OF LABORATORY MEDICINE A/G Ratio 1.3 1.0 - 2.2 02/07/2025 5:[address] [facility] DEPARTMENT OF LABORATORY MEDICINE Blood ARM NEC / Unknown Venipuncture / Unknown 02/07/2025 4:31 AM EST 02/07/2025 4:48 AM EST us Gwen Morales MD LAB BLOOD ORDERABLES Final Result Performing Organization Address City/State/[facility] Co de Phone Number [facility] DEPARTMENT OF LABORATORY MEDICINE [address] [place] [address] * Basic metabolic panel (02/06/2025 5:39 AM [facility]) Sodium 141 136 - 144 mmol/L 02/06/2025 7:[address] [facility] DEPARTMENT OF LABORATORY MEDICINE Potassium 4.0 3.3 - 5.3 mmol/L 02/06/2025 7:[address] [facility] DEPARTMENT OF LABORATORY MEDICINE Chloride 105 98 - 107 mmol/L 02/06/2025 7:[address] [facility] DEPARTMENT OF LABORATORY MEDICINE CO2 25 20 - 30 mmol/L 02/06/2025 7:[address] [facility] DEPARTMENT OF LABORATORY MEDICINE Anion Gap 11 7 - 17 02/06/2025 7:[address] [facility] DEPARTMENT OF LABORATORY MEDICINE Glucose 87 70 - 100 mg/dL 02/06/2025 7:[address] [facility] DEPARTMENT OF LABORATORY MEDICINE BUN 9 6 - 20 mg/dL 02/06/2025 7:[address] [facility] DEPARTMENT OF LABORATORY MEDICINE Creatinine 0.60 0.40 - 1.30 mg/dL 02/06/2025 7:[address] [facility] DEPARTMENT OF LABORATORY MEDICINE Calcium 9.2 8.8 - 10.2 mg/dL 02/06/2025 7:[address] [facility] DEPARTMENT OF LABORATORY MEDICINE BUN/Creatinine Ratio 15.0 8.0 - 23.0 02/06/2025 7:02 AM EST [facility] DEPARTMENT OF LABORATORY MEDICINE eGFR (Creatinine) >60 >=60 mL/min/1.73m 2 02/06/2025 7:02 AM EST [facility] DEPARTMENT OF LABORATORY MEDICINE Comment: [facility] utilizes CKD-EPI Creatinine 2020 to report eGFR. Values < 60 mL/min/1.73 m2 may indicate CKD if present for more than three months AND creatinine is at steady state. The eGFR provides a rough estimate of kidney function. For further guidance, please refer to the CKD: Adult Diesel Engine Mechanic Apprentice Signature pathway. Creatinine Delta -0.01 See Comment 025 7:[address] [facility] DEPARTMENT OF LABORATORY MEDICINE Comment: Delta creatinine is the difference between the current creatinine and the most recent prior creatinine (if available within the previous 12 months). It is intended to detect significant changes in kidney function for patients whose creatinine is <5 mg/dL. A delta is not calculated for patients whose baseline creatinine is >=5 mg/dL or those who do not have a baseline within the last year. The following deltas will flag as critical (triggering a call from the laboratory): a) Deltas >= +1.5 mg/dL for patients with baseline creatinine <= 1.5 mg/dL. b) Deltas >= +3 mg/dL for patients with baseline creatinine between 1.5 and 5 mg/dL. Blood Venipuncture / Unknown 02/06/2025 5:39 AM EST 02/06/2025 6:34 AM EST Gwen Morales MD LAB BLOOD ORDERABLES Final Result [facility] DEPARTMENT OF LABORATORY MEDICINE [address] [place] [address] * (ABNORMAL) CBC auto differential (02/06/2025 5:39 AM EST) [facility] WBC 4.9 4.0 - 11.0 x1000/ L 02/06/2025 6:49 AM EST [facility] DEPARTMENT OF LABORATORY MEDICINE RBC 3.66(L) 4.00 - 6.00 M/ L 02/06/2025 6:49 AM EST [facility] DEPARTMENT OF LABORATORY MEDICINE Hemoglobin 10.9(L) 11.7 - 15.5 g/dL 02/06/2025 6:[address] [facility] DEPARTMENT OF LABORATORY MEDICINE Hematocrit 31.80(L) 35.00 - 45.00 % 02/06/2025 6:[address] [facility] DEPARTMENT OF LABORATORY MEDICINE MCV 86.9 80.0 - 100.0 fL 02/06/2025 6:[address] [facility] DEPARTMENT OF LABORATORY MEDICINE MCH 29.8 27.0 - 33.0 pg 02/06/2025 6:[address] [facility] DEPARTMENT OF LABORATORY MEDICINE MCHC 34.3 31.0 - 36.0 g/dL 02/06/2025 6:[address] [facility] DEPARTMENT OF LABORATORY MEDICINE RDW-CV 12.4 11.0 - 15.0 % 02/06/2025 6:[address] [facility] DEPARTMENT OF LABORATORY MEDICINE Platelets 264 150 - 420 x1000/ L 02/06/2025 6:[address] [facility] DEPARTMENT OF LABORATORY MEDICINE MPV 12.1(H) 8.0 - 12.0 fL 02/06/2025 6:[address] [facility] DEPARTMENT OF LABORATORY MEDICINE Neutrophils 36.4(L) 39.0 - 72.0 % 02/06/2025 6:[address] [facility] DEPARTMENT OF LABORATORY MEDICINE Lymphocytes 48.9 17.0 - 50.0 % 02/06/2025 6:[address] [facility] DEPARTMENT OF LABORATORY MEDICINE Monocytes 10.0 4.0 - 12.0 % 02/06/2025 6:[address] [facility] DEPARTMENT OF LABORATORY MEDICINE Eosinophils 4.1 0.0 - 5.0 % 02/06/2025 6:[address] [facility] DEPARTMENT OF LABORATORY MEDICINE Basophil 0.4 0.0 - 1.4 % 02/06/2025 6:[address] [facility] DEPARTMENT OF LABORATORY MEDICINE Immature Granulocytes 0.2 0.0 - 1.0 % 02/06/2025 6:[address] [facility] [facility] nRBC 0.0 0.0 - 1.0 % 02/06/2025 6:[address] [facility] DEPARTMENT OF LABORATORY MEDICINE Absolute Lymphocyte Count 2.39 0.60 - 3.70 x 1000/ L 02/06/2025 6:49 AM EST [facility] DEPARTMENT OF LABORATORY MEDICINE Monocyte Absolute Count 0.49 0.00 - 1.00 x 1000/ L 02/06/2025 6:49 AM EST [facility] DEPARTMENT OF LABORATORY MEDICINE Eosinophil Absolute Count 0.20 0.00 - 1.00 x 1000/ L 02/06/2025 6:49 AM EST [facility] DEPARTMENT OF LABORATORY MEDICINE Basophil Absolute Count 0.02 0.00 - 1.00 x 1000/ L 02/06/2025 6:49 AM EST [facility] DEPARTMENT OF LABORATORY MEDICINE Absolute Immature Granulocyte Count 0.01 0.00 - 0.30 x 1000/ L 02/06/2025 6:[address] [facility] DEPARTMENT OF LABORATORY MEDICINE Absolute nRBC 0.00 0.00 - 1.00 x 1000/ L 02/06/2025 6:[address] [facility] DEPARTMENT OF LABORATORY MEDICINE ANC (Abs Neutrophil Count) 1.78(L) 2.00 - 7.60 x 1000/ L 02/06/2025 6:49 AM EST [facility] DEPARTMENT OF LABORATORY MEDICINE Blood Venipuncture / Unknown 02/06/2025 5:39 AM EST 02/06/2025 6:34 AM EST us Gwen Morales MD LAB BLOOD ORDERABLES Final Result [facility] DEPARTMENT OF LABORATORY MEDICINE [address] [place] [address] * (ABNORMAL) Phosphorus (BH GH L LMW Y[facility]) (02/06/2025 5:39 AM EST) Phosphorus 5.2(H) 2.2 - 4.5 mg/dL 02/06/2025 7:18 AM EST [facility] DEPARTMENT OF LABORATORY MEDICINE Blood Venipuncture / Unknown 02/06/2025 5:39 AM EST 02/06/2025 6:34 AM EST us Gwen Morales MD LAB BLOOD ORDERABLES Final Result [facility] DEPARTMENT OF LABORATORY MEDICINE [address] [place] [address] * Magnesium (02/06/2025 5:39 AM EST) Magnesium 2.0 1.7 - 2.4 mg/dL 02/06/2025 7:[address] [facility] DEPARTMENT OF LABORATORY MEDICINE Blood Venipuncture / Unknown 02/06/2025 5:39 AM EST 02/06/2025 6:34 AM EST Gwen Morales MD LAB BLOOD ORDERABLES Final Result [facility] OF LABORATORY MEDICINE [address] [place] [id number] [phone] * (ABNORMAL) Hepatic function panel (02/06/2025 5:39 AM EST) Total Bilirubin 0.4 <=1.2 mg/dL 02/07/20 7:[address] [facility] DEPARTMENT OF LABORATORY MEDICINE Bilirubin, Direct 0.2 <=0.2 mg/dL 2024 7:[address] [facility] DEPARTMENT OF LABORATORY MEDICINE Comment: Effective 11/26/2024 [facility]-Chemistry changed the Direct Bilirubin testing method from the Martha method to the Randox method. Alkaline Phosphatase 90 9 - 122 U/L 02/06/2025 7:[address] [facility] DEPARTMENT OF LABORATORY MEDICINE Alanine Aminotransferase (ALT) 68(H) 10 - 35 U/L 02/06/2025 7:[address] [facility] DEPARTMENT OF LABORATORY MEDICINE Comment:Calcium dobesilate c an cause artificially low ALT results at therapeutic concentrations Aspartate Aminotransferase (AST) 39(H) 10 - 35 U/L 02/06/2025 7:[address] [facility] DEPARTMENT OF LABORATORY MEDICINE AST/ALT Ratio 0.6 Reference Range Not Established 02/06/2025 7:[address] [facility] DEPARTMENT OF LABORATORY MEDICINE Total Protein 6.1 5.9 - 8.3 g/dL 025 7:[address] [facility] DEPARTMENT OF LABORATORY MEDICINE Albumin 3.4(L) 3.6 - 5.1 g/dL 02/06/2025 7:[address] [facility] DEPARTMENT OF LABORATORY MEDICINE Globulin 2.7 2.0 - 3.9 g/dL 02/06/2025 7:[address] [facility] DEPARTMENT OF LABORATORY MEDICINE A/G Ratio 1.3 1.0 - 2.2 02/06/2025 7:[address] [facility] DEPARTMENT OF LABORATORY MEDICINE Blood Venipuncture / Unknown 02/06/2025 5:39 AM EST 02/06/2025 6:34 AM EST Gwen Morales MD LAB BLOOD ORDERABLES Final Result [facility] DEPARTMENT OF LABORATORY MEDICINE [address] [place] [address], [facility] [phone] * (ABNORMAL) Urine microscopic ([facility]) (02/05/2025 12:52 PM EST) Manual Microscopic Performed 02/05/2025 3:[address] [facility] DEPARTMENT OF LABORATORY MEDICINE RBC/HPF >30(A) 0 - 2 /HPF 02/05/2025 3:[address] [facility] DEPARTMENT OF LABORATORY MEDICINE WBC/HPF 3-5 0 - 5 /HPF 02/05/2025 3:[address] [facility] DEPARTMENT OF LABORATORY MEDICINE Bacteria, UA Rare None-Rare /HPF 02/05/2025 3:[address] [facility] DEPARTMENT OF LABORATORY MEDICINE Urine Squamous Epithelial Cells, UA Few None-Few /HPF 02/05/2025 3:[address] [facility] DEPARTMENT OF LABORATORY MEDICINE Trans Epithelial Cells, UA Rare(A) None /HPF 02/05/2025 3:[address] [facility] DEPARTMENT OF LABORATORY MEDICINE Ca Oxalate Maria T, UA Rare(A) None /HPF 02/05/2025 3:[address] [facility] DEPARTMENT OF LABORATORY MEDICINE RBC/HPF, UA 02/05/2025 3:[address] [facility] DEPARTMENT OF LABORATORY MEDICINE WBC/HPF, UA 02/05/2025 3:[address] [facility] DEPARTMENT OF LABORATORY MEDICINE Urine Collection / Unknown 02/05/2025 12:52 PM EST 02/05/2025 1:42 PM EST us Uriel Kaplan MD URINE ORDERABLES Final Resul t [facility] DEPARTMENT OF LABORATORY MEDICINE [address] [place] [address], [facility] [phone] * (ABNORMAL) Urinalysis with culture reflex ([facility]) (02/05/2025 12:52 PM EST) Clarity, UA Cloudy(A) Clear 02/05/2025 2:45 PM EST [facility] DEPARTMENT OF LABORATORY MEDICINE Color, UA [place](A) Yellow, Colorless 02/05/2025 2:45 PM EST [facility] DEPARTMENT OF LABORATORY MEDICINE Specific [place], UA 1.014 1.005 - 1.030 02/05/2025 2:45 PM EST [facility] DEPARTMENT OF LABORATORY MEDICINE pH, UA 02/05/2025 2:45 PM EST [facility] DEPARTMENT OF LABORATORY MEDICINE Comment:Unable to complete u rine macroscopic testing due to color interference. Protein, UA 02/05/2025 2:45 PM EST [facility] DEPARTMENT OF LABORATORY MEDICINE Comment:Unable to complete u rine macroscopic testing due to color interference. Glucose, UA 02/05/2025 2:45 PM EST [facility] DEPARTMENT OF LABORATORY MEDICINE Comment:Unable to complete u rine macroscopic testing due to color interference. Ketones, UA 02/05/2025 2:45 PM EST [facility] DEPARTMENT OF LABORATORY MEDICINE Comment:Unable to complete u rine macroscopic testing due to color interference. Blood, UA 02/05/2025 2:45 PM EST [facility] DEPARTMENT OF LABORATORY MEDICINE Comment:Unable to complete u rine macroscopic testing due to color interference. Bilirubin, UA 02/05/2025 2:45 PM EST [facility] DEPARTMENT OF LABORATORY MEDICINE Comment:Unable to complete u rine macroscopic testing due to color interference. Leukocytes, UA 02/05/2025 2:45 PM EST [facility] DEPARTMENT OF LABORATORY MEDICINE Comment:Unable to complete u rine macroscopic testing due to color interference. Nitrite, UA 02/05/2025 2:45 PM EST [facility] DEPARTMENT OF LABORATORY MEDICINE Comment:Unable to complete u rine macroscopic testing due to color interference. Urobilinogen, UA 02/05/2025 2:45 PM EST [facility] DEPARTMENT OF LABORATORY MEDICINE Comment:Unable to complete u rine macroscopic testing due to color interference. Guerrero Top Tube Received ? Yes 02/05/2025 2:45 PM EST [facility] DEPARTMENT OF LABORATORY MEDICINE Urine Collection / Unknown 02/05/2025 12:52 PM EST 02/05/2025 1:42 PM EST Narrative [facility] DEPARTMENT OF LABORATORY MEDICINE - 02/05/2025 2:45 PM EST Unable to complete urine macroscopic testing due to color interference. us Uriel Kaplan MD URINE ORDERABLES Final Resul t Performing Organization Address [facility] Co de Phone Number [facility] LABORATORY MEDICINE [address] [place] [address] * UA reflex to culture (02/05/2025 12:52 PM EST) Reflex Urine Culture See Comment 02/05/2025 4:01 PM EST [facility] DEPARTMENT OF LABORATORY MEDICINE Urine Collection / Unknown 02/05/2025 12:52 PM EST 02/05/2025 1:42 PM EST Narrative [facility] DEPARTMENT OF LABORATORY MEDICINE - 02/05/2025 4:01 PM EST Urine culture will be reflexed if indicated by urinalysis results. Please check microbiology results for urine culture. us Uriel Kaplan MD URINE ORDERABLES Final Resul t Performing Organization Address [facility] Co de Phone Number [facility] DEPARTMENT LABORATORY MEDICINE [address] [place] [address] * (ABNORMAL) Basic metabolic panel (02/05/2025 6:11 AM EST) Sodium 139 136 - 144 mmol/L 02/05/2025 7:29 AM EST [facility] DEPARTMENT OF LABORATORY MEDICINE Potassium 4.5 3.3 - 5.3 mmol/L 02/05/2025 7:29 AM EST [facility] DEPARTMENT OF LABORATORY MEDICINE Chloride 103 98 - 107 mmol/L 02/05/2025 7:29 AM EST [facility] DEPARTMENT OF LABORATORY MEDICINE CO2 26 20 - 30 mmol/L 02/05/2025 7:29 AM EST [facility] DEPARTMENT OF LABORATORY MEDICINE Anion Gap 10 7 - 17 02/05/2025 7:29 AM [facility] OF LABORATORY MEDICINE Glucose 123(H) 70 - 100 mg/dL 02/05/2025 7:[address] [facility] DEPARTMENT OF LABORATORY MEDICINE BUN 9 6 - 20 mg/dL 02/05/2025 7:[address] [facility] DEPARTMENT OF LABORATORY MEDICINE Creatinine 0.61 0.40 - 1.30 mg/dL 02/05/2025 7:29 AM [facility] OF LABORATORY MEDICINE Calcium 9.3 8.8 - 10.2 mg/dL 02/05/2025 7:29 AM [facility] OF LABORATORY MEDICINE BUN/Creatinine Ratio 14.8 8.0 - 23.0 02/05/2025 7:[address] [facility] DEPARTMENT OF LABORATORY MEDICINE eGFR (Creatinine) >60 >=60 mL/min/1.73 m2 02/05/2025 7:[address] [facility] DEPARTMENT OF LABORATORY MEDICINE Comment: [facility] utilizes CKD-EPI Creatinine 2020 to report eGFR. Values < 60 mL/min/1.73 m2 may indicate CKD if present for more than three months AND creatinine is at steady state. The eGFR provides a rough estimate of kidney function. For further guidance, please refer to the CKD: Adult Diesel Engine [employer]ice Signature pathway. Creatinine Delta 0.09 See Comment 025 7:[address] [facility] DEPARTMENT OF LABORATORY MEDICINE Comment: Delta creatinine is the difference between the current creatinine and the most recent prior creatinine (if available within the previous 12 months). It is intended to detect significant changes in kidney function for patients whose creatinine is <5 mg/dL. A delta is not calculated for patients whose baseline creatinine is >=5 mg/dL or those who do not have a baseline within the last year. The following deltas will flag as critical (triggering a call from the laboratory): a) Deltas >= +1.5 mg/dL for patients with baseline creatinine <= 1.5 mg/dL. b) Deltas >= +3 mg/dL for patients with baseline creatinine between 1.5 and 5 mg/dL. Blood Venipuncture / Unknown 02/05/2025 6:11 AM EST 02/05/2025 6:52 AM EST us Gwen Morales MD LAB BLOOD ORDERABLES Final Result [facility] DEPARTMENT OF LABORATORY MEDICINE [address] [place] [address] * (ABNORMAL) CBC auto differential (02/05/2025 6:11 AM EST) WBC 8.2 4.0 - 11.0 x1000/ L 02/05/2025 7:[address] [facility] DEPARTMENT OF LABORATORY MEDICINE RBC 3.78(L) 4.00 - 6.00 M/ L 02/05/2025 7:[address] [facility] DEPARTMENT OF LABORATORY MEDICINE Hemoglobin 11.1(L) 11.7 - 15.5 g/dL 02/05/2025 7:[address] [facility] DEPARTMENT OF LABORATORY MEDICINE Hematocrit 33.20(L) 35.00 - 45.00 % 02/05/2025 7:[address] [facility] DEPARTMENT OF LABORATORY MEDICINE MCV 87.8 80.0 - 100.0 fL 02/05/2025 7:[address] [facility] DEPARTMENT OF LABORATORY MEDICINE MCH 29.4 27.0 - 33.0 pg 02/05/2025 7:[address] [facility] DEPARTMENT OF LABORATORY MEDICINE MCHC 33.4 31.0 - 36.0 g/dL 02/05/2025 7:[address] [facility] DEPARTMENT OF LABORATORY MEDICINE RDW-CV 12.2 11.0 - 15.0 % 02/05/2025 7:[address] [facility] DEPARTMENT OF LABORATORY MEDICINE Platelets 264 150 - 420 x1000/ L 02/05/2025 7:[address] [facility] DEPARTMENT OF LABORATORY MEDICINE MPV 12.0 8.0 - 12.0 fL 02/05/2025 7:[address] [facility] DEPARTMENT OF LABORATORY MEDICINE Neutrophils 60.1 39.0 - 72.0 % 02/05/2025 7:[address] [facility] DEPARTMENT OF LABORATORY MEDICINE Lymphocytes 30.5 17.0 - 50.0 % 02/05/2025 7:[address] [facility] DEPARTMENT OF LABORATORY MEDICINE Monocytes 6.5 4.0 - 12.0 % 02/05/2025 7:01 AM EST [facility] DEPARTMENT OF LABORATORY MEDICINE Eosinophils 2.6 0.0 - 5.0 % 02/05/2025 7:[address] [facility] DEPARTMENT OF LABORATORY MEDICINE Basophil 0.1 0.0 - 1.4 % 02/05/2025 7:[address] [facility] DEPARTMENT OF LABORATORY MEDICINE Immature Granulocytes 0.2 0.0 - 1.0 % 02/05/2025 7:[address] [facility] DEPARTMENT OF LABORATORY MEDICINE nRBC 0.0 0.0 - 1.0 % 02/05/2025 7:[address] [facility] DEPARTMENT OF LABORATORY MEDICINE Absolute Lymphocyte Count 2.50 0.60 - 3.70 x 1000/ L 02/05/2025 7:[address] [facility] DEPARTMENT OF LABORATORY MEDICINE Monocyte Absolute Count 0.53 0.00 - 1.00 x 1000/ L 02/05/2025 7:[address] [facility] DEPARTMENT OF LABORATORY MEDICINE Eosinophil Absolute Count 0.21 0.00 - 1.00 x 1000/ L 02/05/2025 7:[address] [facility] DEPARTMENT OF LABORATORY MEDICINE Basophil Absolute Count 0.01 0.00 - 1.00 x 1000/ L 02/05/2025 7:[address] [facility] DEPARTMENT OF LABORATORY MEDICINE Absolute Immature Granulocyte Count 0.02 0.00 - 0.30 x 1000/ L 02/05/2025 7:[address] [facility] DEPARTMENT OF LABORATORY MEDICINE Absolute nRBC 0.00 0.00 - 1.00 x 1000/ L 02/05/2025 7:[address] [facility] DEPARTMENT OF LABORATORY MEDICINE ANC (Abs Neutrophil Count) 4.93 2.00 - 7.60 x 1000/ L 02/05/2025 7:[address] [facility] DEPARTMENT OF LABORATORY MEDICINE Blood Venipuncture / Unknown 02/05/2025 6:11 AM EST 02/05/2025 6:52 AM EST us Gwen Morales MD LAB BLOOD ORDERABLES Final Result [facility] DEPARTMENT OF LABORATORY MEDICINE [address] [place] [address] * (ABNORMAL) T3 (02/05/2025 6:11 AM EST) T3, Total 303.0(H) See Comment ng/dL 02/05/2025 7:29 AM EST [facility] DEPARTMENT OF LABORATORY MEDICINE Comment: Male & Non- Females: 72.0-153.0 ng/dL 1st Trimester: 92.0-224.0 ng/dL 2nd Trimester: 99.0-242.0 ng/dL Blood Venipuncture / Unknown 02/05/2025 6:11 AM EST 02/05/2025 6:52 AM EST Gwen Morales MD LAB BLOOD ORDERABLES Final Result Performing Organization Address [facility] Co de Phone Number [facility] DEPARTMENT OF LABORATORY MEDICINE [address] [place] [address] * (ABNORMAL) T4, free (02/05/2025 6:11 AM EST) Free T4 2.95(H) See Comment ng/dL 02/05/2025 7:29 AM EST [facility] DEPARTMENT OF LABORATORY MEDICINE Comment: For patients taking levothyroxine, the daily therapeutic dose may cause some patients to have slightly higher FT4 than in the general population and TSH should be the main arbiter of dosing adequacy for those whose hypothyroidism is of primary origin (ie. not related to hypothalamic-pituitary disease.) Of 26 commonly used pharmaceuticals tested in vitro, only furosemide caused elevated free thyroxine (FT4) findings at the daily therapeutic dosage level. Male & Non- Females: 0.80-1.70 ng/dL 1st Trimester: 0.90-1.40 ng/dL 2nd Trimester: 0.70-1.30 ng/dL Blood Venipuncture / Unknown 02/05/2025 6:11 AM EST 02/05/2025 6:52 AM EST Gwen Morales MD LAB BLOOD ORDERABLES Final Result Performing Organization Address City/[facility]/ZIP Co de Phone Number [facility] DEPARTMENT OF LABORATORY MEDICINE [address] [place] [address] * Phosphorus (BH GH L LMW YH) (02/05/2025 6:11 AM EST) Phosphorus 4.1 2.2 - 4.5 mg/dL 02/05/2025 8:19 AM EST [facility] DEPARTMENT OF LABORATORY MEDICINE Blood Venipuncture / Unknown 02/05/2025 6:11 AM EST 02/05/2025 6:52 AM EST Gwen Morales MD LAB BLOOD ORDERABLES Final Result Performing Organization Address [facility]/ZIP Co de Phone Number [facility] DEPARTMENT OF LABORATORY MEDICINE [address] [place] [address] * (ABNORMAL) Magnesium (02/05/2025 6:11 AM EST) Magnesium 1.6(L) 1.7 - 2.4 mg/dL 02/05/2025 7:29 AM EST [facility] DEPARTMENT OF LABORATORY MEDICINE Blood Venipuncture / Unknown 02/05/2025 6:11 AM EST 02/05/2025 6:52 AM EST us Gwen Morales MD LAB BLOOD ORDERABLES Final Result Performing Organization Address [facility] de Phone Number [facility] DEPARTMENT OF LABORATORY MEDICINE [address] [place] [address] * (ABNORMAL) Hepatic function panel (02/05/2025 6:11 AM EST) Total Bilirubin 0.4 <=1.2 mg/dL 02/06/20 7:29 AM EST [facility] DEPARTMENT OF LABORATORY MEDICINE Bilirubin, Direct 0.2 <=0.2 mg/dL 2024 7:29 AM EST [facility] DEPARTMENT OF LABORATORY MEDICINE Comment: Effective 11/26/2024 [facility]-Chemistry changed the Direct Bilirubin testing method from the Martha method to the Randox method. Alkaline Phosphatase 102 9 - 122 U/L 02/05/2025 7:29 AM EST [facility] DEPARTMENT OF LABORATORY MEDICINE Alanine Aminotransferase (ALT) 104(H) 10 - 35 U/L 02/05/2025 7:[address] [facility] DEPARTMENT OF LABORATORY MEDICINE Comment:Calcium dobesilate c an cause artificially low ALT results at therapeutic concentrations Aspartate Aminotransferase (AST) 73(H) 10 - 35 U/L 02/05/2025 7:[address] [facility] DEPARTMENT OF LABORATORY MEDICINE AST/ALT Ratio 0.7 Reference Range Not Established 02/05/2025 7:[address] [facility] DEPARTMENT OF LABORATORY MEDICINE Total Protein 6.1 5.9 - 8.3 g/dL 025 7:[address] [facility] DEPARTMENT OF LABORATORY MEDICINE Albumin 3.5(L) 3.6 - 5.1 g/dL 02/05/2025 7:[address] [facility] DEPARTMENT OF LABORATORY MEDICINE Globulin 2.6 2.0 - 3.9 g/dL 02/05/2025 7:[address] [facility] DEPARTMENT OF LABORATORY MEDICINE A/G Ratio 1.3 1.0 - 2.2 02/05/2025 7:[address] [facility] DEPARTMENT OF LABORATORY MEDICINE Blood Venipuncture / Unknown 02/05/2025 6:11 AM EST 02/05/2025 6:52 AM EST Gwen Morales MD LAB BLOOD ORDERABLES Final Result Performing Organization Address City/State/[facility] Co de Phone Number [facility] DEPARTMENT OF LABORATORY MEDICINE [address] [place] [address] * Basic metabolic panel (02/04/2025 5:07 AM EST) Sodium 138 136 - 144 mmol/L 02/04/2025 5:[address] [facility] DEPARTMENT OF LABORATORY MEDICINE Potassium 4.2 3.3 - 5.3 mmol/L 02/04/2025 5:[address] [facility] DEPARTMENT OF LABORATORY MEDICINE Chloride 104 98 - 107 mmol/L 02/04/2025 5:[address] [facility] DEPARTMENT OF LABORATORY MEDICINE CO2 25 20 - 30 mmol/L 02/04/2025 5:[address] [facility] DEPARTMENT OF LABORATORY MEDICINE Anion Gap 9 7 - 17 02/04/2025 5:[address] [facility] DEPARTMENT OF LABORATORY MEDICINE Glucose 97 70 - 100 mg/dL 02/04/2025 5:[address] [facility] DEPARTMENT OF LABORATORY MEDICINE BUN 7 6 - 20 mg/dL 02/04/2025 5:[address] [facility] DEPARTMENT OF LABORATORY MEDICINE Creatinine 0.52 0.40 - 1.30 mg/dL 02/04/2025 5:[address] [facility] DEPARTMENT OF LABORATORY MEDICINE Calcium 9.4 8.8 - 10.2 mg/dL 02/04/2025 5:[address] [facility] DEPARTMENT OF LABORATORY MEDICINE BUN/Creatinine Ratio 13.5 8.0 - 23.0 02/04/2025 5:[address] [facility] DEPARTMENT OF LABORATORY MEDICINE eGFR (Creatinine) >60 >=60 mL/min/1.73m 2 02/04/2025 5:[address] [facility] DEPARTMENT OF LABORATORY MEDICINE Comment: [facility] utilizes CKD-EPI Creatinine 2020 to report eGFR. Values < 60 mL/min/1.73 m2 may indicate CKD if present for more than three months AND creatinine is at steady state. The eGFR provides a rough estimate of kidney function. For further guidance, please refer to the CKD: Adult Diesel Engine [employer]ice Signature pathway. Creatinine Delta -0.08 See Comment 025 5:[address] [facility] DEPARTMENT OF LABORATORY MEDICINE Comment: Delta creatinine is the difference between the current creatinine and the most recent prior creatinine (if available within the previous 12 months). It is intended to detect significant changes in kidney function for patients whose creatinine is <5 mg/dL. A delta is not calculated for patients whose baseline creatinine is >=5 mg/dL or those who do not have a baseline within the last year. The following deltas will flag as critical (triggering a call from the laboratory): a) Deltas >= +1.5 mg/dL for patients with baseline creatinine <= 1.5 mg/dL. b) Deltas >= +3 mg/dL for patients with baseline creatinine between 1.5 and 5 mg/dL. Blood Venipuncture / Unknown 02/04/2025 5:07 AM EST 02/04/2025 5:20 AM EST us Gwen Morales MD LAB BLOOD ORDERABLES Final Result [facility] DEPARTMENT OF LABORATORY MEDICINE [address] [place] [address] * (ABNORMAL) CBC auto differential (02/04/2025 5:07 AM EST) [facility] WBC 8.3 4.0 - 11.0 x1000/ L 02/04/2025 5:[address] [facility] DEPARTMENT OF LABORATORY MEDICINE RBC 3.87(L) 4.00 - 6.00 M/ L 02/04/2025 5:[address] [facility] DEPARTMENT OF LABORATORY MEDICINE Hemoglobin 11.2(L) 11.7 - 15.5 g/dL 02/04/2025 5:[address] [facility] DEPARTMENT OF LABORATORY MEDICINE Hematocrit 33.30(L) 35.00 - 45.00 % 02/04/2025 5:[address] [facility] DEPARTMENT OF LABORATORY MEDICINE MCV 86.0 80.0 - 100.0 fL 02/04/2025 5:[address] [facility] DEPARTMENT OF LABORATORY MEDICINE MCH 28.9 27.0 - 33.0 pg 02/04/2025 5:[address] [facility] DEPARTMENT OF LABORATORY MEDICINE MCHC 33.6 31.0 - 36.0 g/dL 02/04/2025 5:[address] [facility] DEPARTMENT OF LABORATORY MEDICINE RDW-CV 12.5 11.0 - 15.0 % 02/04/2025 5:[address] [facility] DEPARTMENT OF LABORATORY MEDICINE Platelets 277 150 - 420 x1000/ L 02/04/2025 5:[address] [facility] DEPARTMENT OF LABORATORY MEDICINE MPV 11.4 8.0 - 12.0 fL 02/04/2025 5:[address] [facility] DEPARTMENT OF LABORATORY MEDICINE Neutrophils 54.9 39.0 - 72.0 % 02/04/2025 5:[address] [facility] DEPARTMENT OF LABORATORY MEDICINE Lymphocytes 34.9 17.0 - 50.0 % 02/04/2025 5:[address] [facility] DEPARTMENT OF LABORATORY MEDICINE Monocytes 7.5 4.0 - 12.0 % 02/04/2025 5:[address] [facility] DEPARTMENT OF LABORATORY MEDICINE Eosinophils 2.3 0.0 - 5.0 % 02/04/2025 5:[address] [facility] DEPARTMENT OF LABORATORY MEDICINE Basophil 0.2 0.0 - 1.4 % 02/04/2025 5:[address] [facility] DEPARTMENT OF LABORATORY MEDICINE Immature Granulocytes 0.2 0.0 - 1.0 % 02/04/2025 5:[address] [facility] DEPARTMENT OF LABORATORY MEDICINE nRBC 0.0 0.0 - 1.0 % 02/04/2025 5:[address] [facility] DEPARTMENT OF LABORATORY MEDICINE Absolute Lymphocyte Count 2.89 0.60 - 3.70 x 1000/ L 02/04/2025 5:[address] [facility] DEPARTMENT OF LABORATORY MEDICINE Monocyte Absolute Count 0.62 0.00 - 1.00 x 1000/ L 02/04/2025 5:[address] [facility] DEPARTMENT OF LABORATORY MEDICINE Eosinophil Absolute Count 0.19 0.00 - 1.00 x 1000/ L 02/04/2025 5:[address] [facility] DEPARTMENT OF LABORATORY MEDICINE Basophil Absolute Count 0.02 0.00 - 1.00 x 1000/ L 02/04/2025 5:[address] [facility] DEPARTMENT OF LABORATORY MEDICINE Absolute Immature Granulocyte Count 0.02 0.00 - 0.30 x 1000/ L 02/04/2025 5:[address] [facility] DEPARTMENT OF LABORATORY MEDICINE Absolute nRBC 0.00 0.00 - 1.00 x 1000/ L 02/04/2025 5:[address] [facility] DEPARTMENT OF LABORATORY MEDICINE ANC (Abs Neutrophil Count) 4.54 2.00 - 7.60 x 1000/ L 02/04/2025 5:[address] [facility] DEPARTMENT OF LABORATORY MEDICINE Blood Venipuncture / Unknown 02/04/2025 5:07 AM EST 02/04/2025 5:20 AM EST us Gwen Morales MD LAB BLOOD ORDERABLES Final Result [facility] DEPARTMENT OF LABORATORY MEDICINE [address] [place] [address] * (ABNORMAL) T3 (02/04/2025 5:07 AM EST) T3, Total 242.0(H) See Comment ng/dL 02/04/2025 5:54 AM EST [facility] DEPARTMENT OF LABORATORY MEDICINE Comment: Male & Non- Females: 72.0-153.0 ng/dL 1st Trimester: 92.0-224.0 ng/dL 2nd Trimester: 99.0-242.0 ng/dL Blood Venipuncture / Unknown 02/04/2025 5:07 AM EST 02/04/2025 5:20 AM EST Gwen Morales MD LAB BLOOD ORDERABLES Final Result Performing Organization Address City/[facility] Co de Phone Number [facility] DEPARTMENT OF LABORATORY MEDICINE [address] [place] [address] * (ABNORMAL) T4, free (02/04/2025 5:07 AM EST) Free T4 4.43(H) See Comment ng/dL 02/04/2025 5:54 AM EST [facility] DEPARTMENT OF LABORATORY MEDICINE Comment: For patients taking levothyroxine, the daily therapeutic dose may cause some patients to have slightly higher FT4 than in the general population and TSH should be the main arbiter of dosing adequacy for those whose hypothyroidism is of primary origin (ie. not related to hypothalamic-pituitary disease.) Of 26 commonly used pharmaceuticals tested in vitro, only furosemide caused elevated free thyroxine (FT4) findings at the daily therapeutic dosage level. Male & Non- Females: 0.80-1.70 ng/dL 1st Trimester: 0.90-1.40 ng/dL 2nd Trimester: 0.70-1.30 ng/dL Blood Venipuncture / Unknown 02/04/2025 5:07 AM EST 02/04/2025 5:20 AM EST Gwen Morales MD LAB BLOOD ORDERABLES Final Result Performing Organization Address [facility] Co de Phone Number [facility] DEPARTMENT OF LABORATORY MEDICINE [address] [place] [address] * Phosphorus (BH GH L LMW YH) (02/04/2025 5:07 AM EST) Phosphorus 4.2 2.2 - 4.5 mg/dL 02/04/2025 5:54 AM EST [facility] DEPARTMENT OF LABORATORY MEDICINE Blood Venipuncture / Unknown 02/04/2025 5:07 AM EST 02/04/2025 5:20 AM EST Gwen Morales MD LAB BLOOD ORDERABLES Final Result Performing Organization Address [facility]/ZIP Co de Phone Number [facility] OF LABORATORY MEDICINE [address] [place] [address] * (ABNORMAL) Magnesium (02/04/2025 5:07 AM EST) Magnesium 1.6(L) 1.7 - 2.4 mg/dL 02/04/2025 5:54 AM EST [facility] DEPARTMENT OF LABORATORY MEDICINE Blood Venipuncture / Unknown 02/04/2025 5:07 AM EST 02/04/2025 5:20 AM EST us Gwen Morales MD LAB BLOOD ORDERABLES Final Result Performing Organization Address [facility] de Phone Number [facility] LABORATORY MEDICINE [address] [place] [address] * (ABNORMAL) Hepatic function panel (02/04/2025 5:07 AM EST) Total Bilirubin 0.4 <=1.2 mg/dL 02/05/20 5:54 AM EST [facility] DEPARTMENT OF LABORATORY MEDICINE Bilirubin, Direct 0.2 <=0.2 mg/dL 2024 5:54 AM EST [facility] DEPARTMENT OF LABORATORY MEDICINE Comment: Effective 11/26/2024 [facility]-Chemistry changed the Direct Bilirubin testing method from the Martha method to the Randox method. Alkaline Phosphatase 99 9 - 122 U/L 02/04/2025 5:54 AM EST [facility] DEPARTMENT OF LABORATORY MEDICINE Alanine Aminotransferase (ALT) 56(H) 10 - 35 U/L 02/04/2025 5:54 AM EST [facility] DEPARTMENT OF LABORATORY MEDICINE Comment:Calcium dobesilate c an cause artificially low ALT results at therapeutic concentrations Aspartate Aminotransferase (AST) 117(H) 10 - 35 U/L 02/04/2025 5:[address] [facility] DEPARTMENT OF LABORATORY MEDICINE AST/ALT Ratio 2.1 Reference Range Not Established 02/04/2025 5:[address] [facility] DEPARTMENT OF LABORATORY MEDICINE Total Protein 6.3 5.9 - 8.3 g/dL 025 5:[address] [facility] DEPARTMENT OF LABORATORY MEDICINE Albumin 3.5(L) 3.6 - 5.1 g/dL 02/04/2025 5:[address] [facility] DEPARTMENT OF LABORATORY MEDICINE Globulin 2.8 2.0 - 3.9 g/dL 02/04/2025 5:[address] [facility] DEPARTMENT OF LABORATORY MEDICINE A/G Ratio 1.3 1.0 - 2.2 02/04/2025 5:[address] [facility] DEPARTMENT OF LABORATORY MEDICINE Blood Venipuncture / Unknown 02/04/2025 5:07 AM EST 02/04/2025 5:20 AM EST Gwen Morales MD LAB BLOOD ORDERABLES Final Result Performing Organization Address City/State/[facility] Co de Phone Number [facility] DEPARTMENT OF LABORATORY MEDICINE [address] [place] [address] * (ABNORMAL) Basic metabolic panel (02/03/2025 5:03 AM EST) Sodium 138 136 - 144 mmol/L 02/03/2025 6:[address] [facility] DEPARTMENT OF LABORATORY MEDICINE Potassium 4.2 3.3 - 5.3 mmol/L 02/03/2025 6:[address] [facility] DEPARTMENT OF LABORATORY MEDICINE Chloride 103 98 - 107 mmol/L 02/03/2025 6:[address] [facility] DEPARTMENT OF LABORATORY MEDICINE CO2 25 20 - 30 mmol/L 02/03/2025 6:[address] [facility] DEPARTMENT OF LABORATORY MEDICINE Anion Gap 10 7 - 17 02/03/2025 6:[address] [facility] DEPARTMENT OF LABORATORY MEDICINE Glucose 101(H) 70 - 100 mg/dL 02/03/2025 6:[address] [facility] DEPARTMENT OF LABORATORY MEDICINE BUN 14 6 - 20 mg/dL 02/03/2025 6:41 AM EST [facility] DEPARTMENT OF LABORATORY MEDICINE Creatinine 0.60 0.40 - 1.30 mg/dL 02/03/2025 6:41 AM EST [facility] DEPARTMENT OF LABORATORY MEDICINE Calcium 9.5 8.8 - 10.2 mg/dL 02/03/2025 6:[address] [facility] DEPARTMENT OF LABORATORY MEDICINE BUN/Creatinine Ratio 23.3(H) 8.0 - 23.0 02/03/2025 6:41 AM EST [facility] DEPARTMENT OF LABORATORY MEDICINE eGFR (Creatinine) >60 >=60 mL/min/1.73 m2 02/03/2025 6:41 AM EST [facility] DEPARTMENT OF LABORATORY MEDICINE Comment: [facility] utilizes CKD-EPI Creatinine 2020 to report eGFR. Values < 60 mL/min/1.73 m2 may indicate CKD if present for more than three months AND creatinine is at steady state. The eGFR provides a rough estimate of kidney function. For further guidance, please refer to the CKD: Adult Diesel Engine Mechanic Apprentice Signature pathway. Creatinine Delta 0.12 See Comment 02/03/2025 6:[address] [facility] DEPARTMENT OF LABORATORY MEDICINE Comment: Delta creatinine is the difference between the current creatinine and the most recent prior creatinine (if available within the previous 12 months). It is intended to detect significant changes in kidney function for patients whose creatinine is <5 mg/dL. A delta is not calculated for patients whose baseline creatinine is >=5 mg/dL or those who do not have a baseline within the last year. The following deltas will flag as critical (triggering a call from the laboratory): a) Deltas >= +1.5 mg/dL for patients with baseline creatinine <= 1.5 mg/dL. b) Deltas >= +3 mg/dL for patients with baseline creatinine between 1.5 and 5 mg/dL. Blood Venipuncture / Unknown 02/03/2025 5:03 AM EST 02/03/2025 6:01 AM EST us Gwen Morales MD LAB BLOOD ORDERABLES Final Result [facility] DEPARTMENT OF LABORATORY MEDICINE [address] [place] [address], [facility] [phone] * (ABNORMAL) CBC auto differential (02/03/2025 5:03 AM [facility]) [facility] WBC 7.2 4.0 - 11.0 x1000/ L 02/03/2025 6:[address] [facility] DEPARTMENT OF LABORATORY MEDICINE RBC 3.82(L) 4.00 - 6.00 M/ L 02/03/2025 6:[address] [facility] DEPARTMENT OF LABORATORY MEDICINE Hemoglobin 11.7 11.7 - 15.5 g/dL 02/03/2025 6:[address] [facility] DEPARTMENT OF LABORATORY MEDICINE Hematocrit 33.00(L) 35.00 - 45.00 % 02/03/2025 6:[address] [facility] DEPARTMENT OF LABORATORY MEDICINE MCV 86.4 80.0 - 100.0 fL 02/03/2025 6:[address] [facility] DEPARTMENT OF LABORATORY MEDICINE MCH 30.6 27.0 - 33.0 pg 02/03/2025 6:[address] [facility] DEPARTMENT OF LABORATORY MEDICINE MCHC 35.5 31.0 - 36.0 g/dL 02/03/2025 6:[address] [facility] DEPARTMENT OF LABORATORY MEDICINE RDW-CV 12.5 11.0 - 15.0 % 02/03/2025 6:[address] [facility] DEPARTMENT OF LABORATORY MEDICINE Platelets 263 150 - 420 x1000/ L 02/03/2025 6:[address] [facility] DEPARTMENT OF LABORATORY MEDICINE MPV 11.9 8.0 - 12.0 fL 02/03/2025 6:[address] [facility] DEPARTMENT OF LABORATORY MEDICINE Neutrophils 46.6 39.0 - 72.0 % 02/03/2025 6:[address] [facility] DEPARTMENT OF LABORATORY MEDICINE Lymphocytes 42.1 17.0 - 50.0 % 02/03/2025 6:[address] [facility] DEPARTMENT OF LABORATORY MEDICINE Monocytes 8.6 4.0 - 12.0 % 02/03/2025 6:[address] [facility] DEPARTMENT OF LABORATORY MEDICINE Eosinophils 2.5 0.0 - 5.0 % 02/03/2025 6:[address] [facility] DEPARTMENT OF LABORATORY MEDICINE Basophil 0.1 0.0 - 1.4 % 02/03/2025 6:[address] [facility] DEPARTMENT OF LABORATORY MEDICINE Immature Granulocytes 0.1 0.0 - 1.0 % 02/03/2025 6:35 AM EST [facility] DEPARTMENT OF LABORATORY MEDICINE nRBC 0.0 0.0 - 1.0 % 02/03/2025 6:35 AM EST [facility] DEPARTMENT OF LABORATORY MEDICINE Absolute Lymphocyte Count 3.03 0.60 - 3.70 x 1000/ L 02/03/2025 6:35 AM EST [facility] DEPARTMENT OF LABORATORY MEDICINE Monocyte Absolute Count 0.62 0.00 - 1.00 x 1000/ L 02/03/2025 6:[address] [facility] DEPARTMENT OF LABORATORY MEDICINE Eosinophil Absolute Count 0.18 0.00 - 1.00 x 1000/ L 02/03/2025 6:[address] [facility] DEPARTMENT OF LABORATORY MEDICINE Basophil Absolute Count 0.01 0.00 - 1.00 x 1000/ L 02/03/2025 6:[address] [facility] DEPARTMENT OF LABORATORY MEDICINE Absolute Immature Granulocyte Count 0.01 0.00 - 0.30 x 1000/ L 02/03/2025 6:[address] [facility] DEPARTMENT OF LABORATORY MEDICINE Absolute nRBC 0.00 0.00 - 1.00 x 1000/ L 02/03/2025 6:[address] [facility] DEPARTMENT OF LABORATORY MEDICINE ANC (Abs Neutrophil Count) 3.35 2.00 - 7.60 x 1000/ L 02/03/2025 6:[address] [facility] DEPARTMENT OF LABORATORY MEDICINE Blood Venipuncture / Unknown 02/03/2025 5:03 AM EST 02/03/2025 6:01 AM EST Gwen Morales MD LAB BLOOD ORDERABLES Final Result Performing Organization Address City/State/[facility] Co de Phone Number [facility] DEPARTMENT OF LABORATORY MEDICINE [address] [place] [address] * (ABNORMAL) T3 (02/03/2025 5:03 AM EST) T3, Total 241.0(H) See Comment ng/dL 02/03/2025 6:41 AM EST [facility] DEPARTMENT OF LABORATORY MEDICINE Comment: Male & Non- Females: 72.0-153.0 ng/dL 1st Trimester: 92.0-224.0 ng/dL 2nd Trimester: 99.0-242.0 ng/dL Blood Venipuncture / Unknown 02/03/2025 5:03 AM EST 02/03/2025 6:01 AM EST Gwen Morales MD LAB BLOOD ORDERABLES Final Result Performing Organization Address [facility] de Phone Number [facility] DEPARTMENT OF LABORATORY MEDICINE [address] [place] [address] * (ABNORMAL) T4, free (02/03/2025 5:03 AM EST) Free T4 4.09(H) See Comment ng/dL 02/03/2025 6:41 AM EST [facility] DEPARTMENT OF LABORATORY MEDICINE Comment: For patients taking levothyroxine, the daily therapeutic dose may cause some patients to have slightly higher FT4 than in the general population and TSH should be the main arbiter of dosing adequacy for those whose hypothyroidism is of primary origin (ie. not related to hypothalamic-pituitary disease.) Of 26 commonly used pharmaceuticals tested in vitro, only furosemide caused elevated free thyroxine (FT4) findings at the daily therapeutic dosage level. Male & Non- Females: 0.80-1.70 ng/dL 1st Trimester: 0.90-1.40 ng/dL 2nd Trimester: 0.70-1.30 ng/dL Blood Venipuncture / Unknown 02/03/2025 5:03 AM EST 02/03/2025 6:01 AM EST Gwen Morales MD LAB BLOOD ORDERABLES Final Result Performing Organization Address [facility] Co de Phone Number [facility] DEPARTMENT OF LABORATORY MEDICINE [address] [place] [address] * (ABNORMAL) Phosphorus (BH GH L LMW YH) (02/03/2025 5:03 AM EST) Phosphorus 5.1(H) 2.2 - 4.5 mg/dL 02/03/2025 7:16 AM EST [facility] DEPARTMENT OF LABORATORY MEDICINE Blood Venipuncture / Unknown 02/03/2025 5:03 AM EST 02/03/2025 6:01 AM EST Gwen Morales MD LAB BLOOD ORDERABLES Final Result [facility] DEPARTMENT OF LABORATORY MEDICINE [address] [place] [address] * Magnesium (02/03/2025 5:03 AM EST) Magnesium 1.8 1.7 - 2.4 mg/dL 02/03/2025 6:[address] [facility] DEPARTMENT OF LABORATORY MEDICINE Blood Venipuncture / Unknown 02/03/2025 5:03 AM EST 02/03/2025 6:01 AM EST Gwen Morales MD LAB BLOOD ORDERABLES Final Result Performing Organization Address [facility] de Phone Number [facility] DEPARTMENT OF LABORATORY MEDICINE [address] [place] [address] * (ABNORMAL) Hepatic function panel (02/03/2025 5:03 AM EST) Total Bilirubin 0.4 <=1.2 mg/dL 02/04/20 6:[address] [facility] DEPARTMENT OF LABORATORY MEDICINE Bilirubin, Direct 0.2 <=0.2 mg/dL 2024 6:[address] [facility] DEPARTMENT OF LABORATORY MEDICINE Comment: Effective 11/26/2024 [facility]-Chemistry changed the Direct Bilirubin testing method from the Martha method to the Randox method. Alkaline Phosphatase 73 9 - 122 U/L 02/03/2025 6:[address] [facility] DEPARTMENT OF LABORATORY MEDICINE Alanine Aminotransferase (ALT) 34 10 - 35 U/L 02/03/2025 6:[address] [facility] DEPARTMENT OF LABORATORY MEDICINE Comment:Calcium dobesilate c an cause artificially low ALT results at therapeutic concentrations Aspartate Aminotransferase (AST) 22 10 - 35 U/L 02/03/2025 6:[address] [facility] DEPARTMENT OF LABORATORY MEDICINE AST/ALT Ratio 0.6 Reference Range Not Established 02/03/2025 6:41 AM EST [facility] DEPARTMENT OF LABORATORY MEDICINE Total Protein 6.0 5.9 - 8.3 g/dL 025 6:[address] [facility] DEPARTMENT OF LABORATORY MEDICINE Albumin 3.4(L) 3.6 - 5.1 g/dL 02/03/2025 6:[address] [facility] DEPARTMENT OF LABORATORY MEDICINE Globulin 2.6 2.0 - 3.9 g/dL 02/03/2025 6:[address] [facility] DEPARTMENT OF LABORATORY MEDICINE A/G Ratio 1.3 1.0 - 2.2 02/03/2025 6:[address] [facility] DEPARTMENT OF LABORATORY MEDICINE Blood Venipuncture / Unknown 02/03/2025 5:03 AM EST 02/03/2025 6:01 AM EST us Gwen Morales MD LAB BLOOD ORDERABLES Final Result Performing Organization Address [facility]/ZIP Co de Phone Number [facility] DEPARTMENT OF LABORATORY MEDICINE [address] [place] [address] * GALA by IFA w/rflx to dsDNA, GUEST SERVICES REPRESENTATIVE, SM, SSA, and SSB Abs (LMW YH) (02/03/2025 5:02 AM EST) GALA <1:80 <1:80 (Negative ) 02/03/2025 3:20 PM EST [facility] DEPARTMENT OF LABORATORY MEDICINE Comment: Specimen tested using a HEp-2 indirect immunofluorescent assay. Effective November 18, 2023, GALA testing will be performed on the [employer]Cell IFA platform. Please note; previous results may not directly correlate due to method change. Blood Venipuncture / Unknown 02/03/2025 5:02 AM EST 02/03/2025 6:01 AM EST us Uriel Kaplan MD LAB BLOOD ORDERABLES Final R esult [facility] DEPARTMENT OF LABORATORY MEDICINE [address] [place] [address] * Urine culture (02/02/2025 9:36 PM EST) [facility] Urine Culture, Routine Less than 10,000 CFU/mL. Clinical significance is unlikely for organism(s) present in quantities of less than 10,000 CFU/mL. 02/03/2025 6:01 PM EST [facility] DEPARTMENT OF LABORATORY MEDICINE Urine URINE SPECIMEN OBTAINED BY CLEAN CATCH PROCEDURE / Unknown Collection / Unknown 02/02/2025 9:36 PM EST 02/02/2025 9:57 PM EST Narrative [facility] DEPARTMENT OF LABORATORY MEDICINE - 02/03/2025 6:01 PM EST Culture, organism identification, and/or susceptibility results may have been generated with a non-FDA approved method. All methods used in this report have been validated by [facility] Microbiology for clinical use. Manjinder Maguire MD [facility]CRO[facility]OLOGY - [facility] Final Result Performing Organization Address City/[facility]/ZIP Co de Phone Number [facility] DEPARTMENT OF LABORATORY MEDICINE [address] [place] [address] * NR FL Less Than 1 Hour Exam (02/02/2025 1:48 PM EST) Narrative RAD4 - 02/02/2025 1:49 PM EST DISCLAIMER This procedure captures images only. There is no report. Rodriguez Shukla MD IMG FLUOROSCOPY ORDERABLES Final Result Performing Organization Address [facility] Co de Phone Number [facility] * CBC auto differential (02/02/2025 4:35 AM EST) Pathologist [facility] WBC 7.6 4.0 - 11.0 x1000/ L 02/02/2025 5:12 AM EST [facility] DEPARTMENT OF LABORATORY MEDICINE RBC 4.04 4.00 - 6.00 M/ L 02/02/2025 5:12 AM EST [facility] DEPARTMENT OF LABORATORY MEDICINE Hemoglobin 11.9 11.7 - 15.5 g/dL 02/02/2025 5:12 AM EST [facility] DEPARTMENT OF LABORATORY MEDICINE Hematocrit 35.00 35.00 - 45.00 % 02/02/2025 5:12 AM EST [facility] DEPARTMENT OF LABORATORY MEDICINE MCV 86.6 80.0 - 100.0 fL 02/02/2025 5:[address] [facility] DEPARTMENT OF LABORATORY MEDICINE MCH 29.5 27.0 - 33.0 pg 02/02/2025 5:[address] [facility] DEPARTMENT OF LABORATORY MEDICINE MCHC 34.0 31.0 - 36.0 g/dL 02/02/2025 5:[address] [facility] DEPARTMENT OF LABORATORY MEDICINE RDW-CV 12.7 11.0 - 15.0 % 02/02/2025 5:[address] [facility] DEPARTMENT OF LABORATORY MEDICINE Platelets 284 150 - 420 x1000/ L 02/02/2025 5:[address] [facility] DEPARTMENT OF LABORATORY MEDICINE MPV 11.5 8.0 - 12.0 fL 02/02/2025 5:[address] [facility] DEPARTMENT OF LABORATORY MEDICINE Neutrophils 50.6 39.0 - 72.0 % 02/02/2025 5:[address] [facility] DEPARTMENT OF LABORATORY MEDICINE Lymphocytes 39.7 17.0 - 50.0 % 02/02/2025 5:[address] [facility] DEPARTMENT OF LABORATORY MEDICINE Monocytes 7.0 4.0 - 12.0 % 02/02/2025 5:[address] [facility] DEPARTMENT OF LABORATORY MEDICINE Eosinophils 2.5 0.0 - 5.0 % 02/02/2025 5:[address] [facility] DEPARTMENT OF LABORATORY MEDICINE Basophil 0.1 0.0 - 1.4 % 02/02/2025 5:[address] [facility] DEPARTMENT OF LABORATORY MEDICINE Immature Granulocytes 0.1 0.0 - 1.0 % 02/02/2025 5:[address] [facility] DEPARTMENT OF LABORATORY MEDICINE nRBC 0.0 0.0 - 1.0 % 02/02/2025 5:[address] [facility] DEPARTMENT OF LABORATORY MEDICINE Absolute Lymphocyte Count 3.02 0.60 - 3.70 x 1000/ L 02/02/2025 5:[address] [facility] DEPARTMENT OF LABORATORY MEDICINE Monocyte Absolute Count 0.53 0.00 - 1.00 x 1000/ L 02/02/2025 5:[address] [facility] DEPARTMENT OF LABORATORY MEDICINE Eosinophil Absolute Count 0.19 0.00 - 1.00 x 1000/ L 02/02/2025 5:[address] [facility] DEPARTMENT OF LABORATORY MEDICINE Basophil Absolute Count 0.01 0.00 - 1.00 x 1000/ L 02/02/2025 5:[address] [facility] DEPARTMENT OF LABORATORY MEDICINE Absolute Immature Granulocyte Count 0.01 0.00 - 0.30 x 1000/ L 02/02/2025 5:[address] [facility] DEPARTMENT OF LABORATORY MEDICINE Absolute nRBC 0.00 0.00 - 1.00 x 1000/ L 02/02/2025 5:[address] [facility] DEPARTMENT OF LABORATORY MEDICINE ANC (Abs Neutrophil Count) 3.84 2.00 - 7.60 x 1000/ L 02/02/2025 5:[address] [facility] DEPARTMENT OF LABORATORY MEDICINE Blood Venipuncture / Unknown 02/02/2025 4:35 AM EST 02/02/2025 4:54 AM EST us Dontae Rodriguez MD LAB BLOOD ORDERABLES Final Resul t Performing Organization Address City/State/[facility] Co de Phone Number [facility] DEPARTMENT OF LABORATORY MEDICINE [address] [place] [address] * Basic metabolic panel (02/02/2025 4:35 AM EST) Sodium 140 136 - 144 mmol/L 02/02/2025 5:[address] [facility] DEPARTMENT OF LABORATORY MEDICINE Potassium 3.9 3.3 - 5.3 mmol/L 02/02/2025 5:[address] [facility] DEPARTMENT OF LABORATORY MEDICINE Chloride 106 98 - 107 mmol/L 02/02/2025 5:[address] [facility] DEPARTMENT OF LABORATORY MEDICINE CO2 23 20 - 30 mmol/L 02/02/2025 5:[address] [facility] DEPARTMENT OF LABORATORY MEDICINE Anion Gap 11 7 - 17 02/02/2025 5:[address] [facility] DEPARTMENT OF LABORATORY MEDICINE Glucose 94 70 - 100 mg/dL 02/02/2025 5:[address] [facility] DEPARTMENT OF LABORATORY MEDICINE BUN 9 6 - 20 mg/dL 02/02/2025 5:[address] [facility] DEPARTMENT OF LABORATORY MEDICINE Creatinine 0.48 0.40 - 1.30 mg/dL 02/02/2025 5:[address] [facility] DEPARTMENT OF LABORATORY MEDICINE Calcium 9.5 8.8 - 10.2 mg/dL 02/02/2025 5:31 AM EST [facility] DEPARTMENT OF LABORATORY MEDICINE BUN/Creatinine Ratio 18.8 8.0 - 23.0 02/02/2025 5:31 AM EST [facility] DEPARTMENT OF LABORATORY MEDICINE eGFR (Creatinine) >60 >=60 mL/min/1.73m 2 02/02/2025 5:31 AM EST [facility] DEPARTMENT OF LABORATORY MEDICINE Comment: [facility] utilizes CKD-EPI Creatinine 2020 to report eGFR. Values < 60 mL/min/1.73 m2 may indicate CKD if present for more than three months AND creatinine is at steady state. The eGFR provides a rough estimate of kidney function. For further guidance, please refer to the CKD: Adult [employer] Signature pathway. Creatinine Delta -0.07 See Comment 025 5:[address] [facility] DEPARTMENT OF LABORATORY MEDICINE Comment: Delta creatinine is the difference between the current creatinine and the most recent prior creatinine (if available within the previous 12 months). It is intended to detect significant changes in kidney function for patients whose creatinine is <5 mg/dL. A delta is not calculated for patients whose baseline creatinine is >=5 mg/dL or those who do not have a baseline within the last year. The following deltas will flag as critical (triggering a call from the laboratory): a) Deltas >= +1.5 mg/dL for patients with baseline creatinine <= 1.5 mg/dL. b) Deltas >= +3 mg/dL for patients with baseline creatinine between 1.5 and 5 mg/dL. Blood Venipuncture / Unknown 02/02/2025 4:35 AM EST 02/02/2025 4:54 AM EST us Dontae Rodriguez MD LAB BLOOD ORDERABLES Final Resul t [facility] DEPARTMENT OF LABORATORY MEDICINE [address] [place] [address] * (ABNORMAL) T3 (02/02/2025 4:35 AM EST) T3, Total 274.0(H) See Comment ng/dL 02/02/2025 5:31 AM EST [facility] DEPARTMENT OF LABORATORY MEDICINE Comment: Male & Non- Females: 72.0-153.0 ng/dL 1st Trimester: 92.0-224.0 ng/dL 2nd Trimester: 99.0-242.0 ng/dL Blood Venipuncture / Unknown 02/02/2025 4:35 AM EST 02/02/2025 4:54 AM EST us Dontae Rodriguez MD LAB BLOOD ORDERABLES Final Resul t Performing Organization Address City/[facility] Co de Phone Number [facility] DEPARTMENT OF LABORATORY MEDICINE [address] [place] [address] * (ABNORMAL) T4, free (02/02/2025 4:35 AM EST) Free T4 5.57(H) See Comment ng/dL 02/02/2025 5:31 AM EST [facility] DEPARTMENT OF LABORATORY MEDICINE Comment: For patients taking levothyroxine, the daily therapeutic dose may cause some patients to have slightly higher FT4 than in the general population and TSH should be the main arbiter of dosing adequacy for those whose hypothyroidism is of primary origin (ie. not related to hypothalamic-pituitary disease.) Of 26 commonly used pharmaceuticals tested in vitro, only furosemide caused elevated free thyroxine (FT4) findings at the daily therapeutic dosage level. Male & Non- Females: 0.80-1.70 ng/dL 1st Trimester: 0.90-1.40 ng/dL 2nd Trimester: 0.70-1.30 ng/dL Blood Venipuncture / Unknown 02/02/2025 4:35 AM EST 02/02/2025 4:54 AM EST us Dontae Rodriguez MD LAB BLOOD ORDERABLES Final Resul t Performing Organization Address City/[facility] Co de Phone Number [facility] DEPARTMENT OF LABORATORY MEDICINE [address] [place] [address] * MRI Chest w wo IV Contrast (02/01/2025 2:01 PM EST) Anatomical Region Laterality Modality Chest Magnetic Resonan ce 02/01/2025 2:40 PM EST Impressions 02/01/2025 3:40 PM EST 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 Report initiated by: Dick Madrigal MD Reported and signed by: Ana M Moreira MD [facility] Narrative 02/01/2025 3:40 PM EST MRI CHEST W WO IV CONTRAST Date: 02/01/2025 2:01 PM INDICATION: 39F PMH Graves evaluation for anterior mediastinal mass premedication per primary team COMPARISON: Outside facility CT chest, abdomen, and pelvis dated 01/26/2025 viewed on [facility]. TECHNIQUE: Multiplanar, multisequence MR imaging of the chest was performed before and after administration of IV contrast. . 14 mL gadoterate meglumine (DOTAREM) 0.5 mmol/mL (376.9 mg/mL) injection was intravenously administered. Postprocessed subtraction images are also included. FINDINGS: Mediastinum: Pyramidal-shaped anterior mediastinal mass demonstrating isointense signal on the T1-weighted precontrast images, intermediate bright signal on the T2-weighted and T2 weighted fat saturation images. It demonstrates loss of signal intensity on [id number] imaging with signal intensity index of 11.6%. Post contrast subtraction images demonstrate possible mild enhancement (motion artifact). Lungs/Pleura : No consolidations. No mass lesion. MR technique limits evaluation for small pulmonary nodules. No pleural effusion. Lymph nodes: No thoracic adenopathy. Enlarged heterogeneous thyroid. Heart and Vessels: Normal cardiac size. No pericardial effusion. Normal course and caliber of the thoracic aorta. Pulmonary artery is normal size. Upper Abdomen: Visualized portion of the abdominal organs are unremarkable. Bones and soft tissues: No aggressive bone lesions. Susceptibility from hardware in the right shoulder. Bilateral breast implants. Procedure Note Ana M Moreira MD - 02/01/2025 MRI CHEST W WO IV CONTRAST Date: 02/01/2025 2:01 PM INDICATION: 39F PMH Graves evaluation for anterior mediastinal mass premedication per primary team COMPARISON: Outside facility CT chest, abdomen, and pelvis dated103/28/2024 viewed on [facility]. TECHNIQUE: Multiplanar, multisequence MR imaging of the chest wasperformed before and after administration of IV contrast. . 14 mLgadoterate meglumine (DOTAREM) 0.5 mmol/mL (376.9 mg/mL) injection wasintravenously administered. Postprocessed subtraction images are alsoincluded. FINDINGS: Mediastinum: Pyramidal-shaped anterior mediastinal mass demonstratingisointense signal on the T1-weighted precontrast images, intermediatebright signal on the T2-weighted and T2 weighted fat saturation images. Itdemonstrates loss of signal intensity on [id number] imaging with signalintensity index of 11.6%. Post contrast subtraction images demonstratepossible mild enhancement (motion artifact). Lungs/Pleura : No consolidations. No mass lesion. MR technique limitsevaluation for small pulmonary nodules. No pleural effusion. Lymph nodes: No thoracic adenopathy. Enlarged heterogeneous thyroid. Heart and Vessels: Normal cardiac size. No pericardial effusion. Normalcourse and caliber of the thoracic aorta. Pulmonary artery is normal size. Upper Abdomen: Visualized portion of the abdominal organs areunremarkable. Bones and soft tissues: No aggressive bone lesions. Susceptibility fromhardware in the right shoulder. Bilateral breast implants. 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 Report initiated by: Dick Madrigal MD Reported and signed by: Ana M Moreira MD [facility] Marie Woodson MD IMG MRI ORDERABLES Final Result * Albumin (02/01/2025 6:23 AM EST) Pathologist [facility] Albumin 3.8 3.6 - 5.1 g/dL 02/01/2025 7:23 AM EST [facility] DEPARTMENT OF LABORATORY MEDICINE Blood Venipuncture / Unknown 02/01/2025 6:23 AM EST 02/01/2025 6:56 AM EST Manjinder Maguire MD LAB BLOOD ORDERABLES Final Result [facility] DEPARTMENT OF LABORATORY MEDICINE [address] [place] [address] * Prealbumin (02/01/2025 6:23 AM EST) Prealbumin 23.0 20.0 - 40.0 mg/dL 02/01/2025 8:04 AM EST [facility] DEPARTMENT OF LABORATORY MEDICINE Blood Venipuncture / Unknown 02/01/2025 6:23 AM EST 02/01/2025 7:34 AM EST Manjinder Maguire MD LAB BLOOD ORDERABLES Final Result [facility] DEPARTMENT OF LABORATORY MEDICINE [address] [place] [address], [facility] [phone] * (ABNORMAL) Basic metabolic panel (02/01/2025 6:23 AM EST) Sodium 140 136 - 144 mmol/L 02/01/2025 7:[address] [facility] DEPARTMENT OF LABORATORY MEDICINE Potassium 3.5 3.3 - 5.3 mmol/L 02/01/2025 7:[address] [facility] DEPARTMENT OF LABORATORY MEDICINE Chloride 105 98 - 107 mmol/L 02/01/2025 7:[address] [facility] DEPARTMENT OF LABORATORY MEDICINE CO2 24 20 - 30 mmol/L 02/01/2025 7:[address] [facility] DEPARTMENT OF LABORATORY MEDICINE Anion Gap 11 7 - 17 02/01/2025 7:[address] [facility] DEPARTMENT OF LABORATORY MEDICINE Glucose 114(H) 70 - 100 mg/dL 02/01/2025 7:[address] [facility] DEPARTMENT OF LABORATORY MEDICINE BUN 7 6 - 20 mg/dL 02/01/2025 7:[address] [facility] DEPARTMENT OF LABORATORY MEDICINE Creatinine 0.55 0.40 - 1.30 mg/dL 02/01/2025 7:[address] [facility] DEPARTMENT OF LABORATORY MEDICINE Calcium 9.5 8.8 - 10.2 mg/dL 02/01/2025 7:[address] [facility] DEPARTMENT OF LABORATORY MEDICINE BUN/Creatinine Ratio 12.7 8.0 - 23.0 02/01/2025 7:[address] [facility] DEPARTMENT OF LABORATORY MEDICINE eGFR (Creatinine) >60 >=60 mL/min/1.73 m2 02/01/2025 7:[address] [facility] DEPARTMENT OF LABORATORY MEDICINE Comment: [facility] utilizes CKD-EPI Creatinine 2020 to report eGFR. Values < 60 mL/min/1.73 m2 may indicate CKD if present for more than three months AND creatinine is at steady state. The eGFR provides a rough estimate of kidney function. For further guidance, please refer to the CKD: Adult Diesel Engine [employer] Apprentice Signature pathway. Creatinine Delta 0.08 See Comment 025 7:[address] [facility] DEPARTMENT OF LABORATORY MEDICINE Comment: Delta creatinine is the difference between the current creatinine and the most recent prior creatinine (if available within the previous 12 months). It is intended to detect significant changes in kidney function for patients whose creatinine is <5 mg/dL. A delta is not calculated for patients whose baseline creatinine is >=5 mg/dL or those who do not have a baseline within the last year. The following deltas will flag as critical (triggering a call from the laboratory): a) Deltas >= +1.5 mg/dL for patients with baseline creatinine <= 1.5 mg/dL. b) Deltas >= +3 mg/dL for patients with baseline creatinine between 1.5 and 5 mg/dL. Blood Venipuncture / Unknown 02/01/2025 6:23 AM EST 02/01/2025 6:56 AM EST us Manjinder Maguire MD LAB BLOOD ORDERABLES Final Result Performing Organization Address City/State/[facility] Co de Phone Number [facility] DEPARTMENT OF LABORATORY MEDICINE [address] [place] [address] * (ABNORMAL) CBC auto differential (02/01/2025 6:23 AM EST) WBC 7.7 4.0 - 11.0 x1000/ L 02/01/2025 7:[address] [facility] DEPARTMENT OF LABORATORY MEDICINE RBC 4.21 4.00 - 6.00 M/ L 02/01/2025 7:[address] [facility] DEPARTMENT OF LABORATORY MEDICINE Hemoglobin 12.0 11.7 - 15.5 g/dL 02/01/2025 7:[address] [facility] DEPARTMENT OF LABORATORY MEDICINE Hematocrit 37.00 35.00 - 45.00 % 02/01/2025 7:[address] [facility] DEPARTMENT OF LABORATORY MEDICINE MCV 87.9 80.0 - 100.0 fL 02/01/2025 7:[address] [facility] DEPARTMENT OF LABORATORY MEDICINE MCH 28.5 27.0 - 33.0 pg 02/01/2025 7:[address] [facility] DEPARTMENT OF LABORATORY MEDICINE MCHC 32.4 31.0 - 36.0 g/dL 02/01/2025 7:[address] [facility] DEPARTMENT OF LABORATORY MEDICINE RDW-CV 12.9 11.0 - 15.0 % 02/01/2025 7:[address] [facility] DEPARTMENT OF LABORATORY MEDICINE Platelets 312 150 - 420 x1000/ L 02/01/2025 7:[address] [facility] DEPARTMENT OF LABORATORY MEDICINE MPV 11.1 8.0 - 12.0 fL 02/01/2025 7:[address] [facility] DEPARTMENT OF LABORATORY MEDICINE Neutrophils 37.9(L) 39.0 - 72.0 % 02/01/2025 7:[address] [facility] DEPARTMENT OF LABORATORY MEDICINE Lymphocytes 50.6(H) 17.0 - 50.0 % 02/01/2025 7:[address] [facility] DEPARTMENT OF LABORATORY MEDICINE Monocytes 9.0 4.0 - 12.0 % 02/01/2025 7:[address] [facility] DEPARTMENT OF LABORATORY MEDICINE Eosinophils 2.1 0.0 - 5.0 % 02/01/2025 7:[address] [facility] DEPARTMENT OF LABORATORY MEDICINE Basophil 0.3 0.0 - 1.4 % 02/01/2025 7:[address] [facility] DEPARTMENT OF LABORATORY MEDICINE Immature Granulocytes 0.1 0.0 - 1.0 % 02/01/2025 7:[address] [facility] DEPARTMENT OF LABORATORY MEDICINE nRBC 0.0 0.0 - 1.0 % 02/01/2025 7:[address] [facility] DEPARTMENT OF LABORATORY MEDICINE Absolute Lymphocyte Count 3.89(H) 0.60 - 3.70 x 1000/ L 02/01/2025 7:[address] [facility] DEPARTMENT OF LABORATORY MEDICINE Monocyte Absolute Count 0.69 0.00 - 1.00 x 1000/ L 02/01/2025 7:[address] [facility] DEPARTMENT OF LABORATORY MEDICINE Eosinophil Absolute Count 0.16 0.00 - 1.00 x 1000/ L 02/01/2025 7:[address] [facility] DEPARTMENT OF LABORATORY MEDICINE Basophil Absolute Count 0.02 0.00 - 1.00 x 1000/ L 02/01/2025 7:13 AM EST [facility] DEPARTMENT OF LABORATORY MEDICINE Absolute Immature Granulocyte Count 0.01 0.00 - 0.30 x 1000/ L 02/01/2025 7:13 AM EST [facility] DEPARTMENT OF LABORATORY MEDICINE Absolute nRBC 0.00 0.00 - 1.00 x 1000/ L 02/01/2025 7:13 AM EST [facility] DEPARTMENT OF LABORATORY MEDICINE ANC (Abs Neutrophil Count) 2.92 2.00 - 7.60 x 1000/ L 02/01/2025 7:13 AM EST [facility] DEPARTMENT OF LABORATORY MEDICINE Blood Venipuncture / Unknown 02/01/2025 6:23 AM EST 02/01/2025 6:56 AM EST us Manjinder Maguire MD LAB BLOOD ORDERABLES Final Result Performing Organization Address City/State/[facility] Co de Phone Number [facility] DEPARTMENT OF LABORATORY MEDICINE [address] [place] [address], [facility] [phone] * US Renal (02/01/2025 2:17 AM EST) Anatomical Region Laterality Modality Abdomen, RCC Abdomen/Pelvis Ultr asound 02/01/2025 2:44 AM EST Impressions 02/01/2025 5:09 AM EST There is redemonstration of dilatation of the proximal ureter of the lower pole , similar compared to outside CT examination. Redemonstration of bilateral renal calculi, in similar position compared to outside CT examination, as described above. The bilateral ureteral jets are visualized. [facility] Radiology Notify System Classification: Routine. Report initiated by: Tariq Zee MD Reported and signed by: Jr Cosby MD [facility] Narrative 02/01/2025 5:09 AM EST US RENAL. HISTORY: 39F known b/l calculi, evaluate for movement of stones into ureter on R. COMPARISON: CT chest abdomen pelvis dated 01/26/2025 performed at an outside institution, images available on [employer]. TECHNIQUE: Grayscale and color Doppler imaging were performed. FINDINGS: RIGHT KIDNEY: Size: 13.9 in maximal sagittal dimension. 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 There is evidence of scarring and partial rotational anomaly of the lower pole moiety. Two renal calculi are seen within the lower pole moiety measuring 10 and 8 mm, which are seen on the outside CT examination. There is dilatation of the proximal lower pole moiety ureter measuring up to 1.0 cm, similar compared to outside CT examination. The apparent right upper pole moiety is unremarkable. Slightly hyperdense renal pyramids raising question of medullary nephrocalcinosis, not confirmed on the recent prior CT scan. LEFT KIDNEY: Size: 13.4 in maximal sagittal dimension. Echogenicity: Normal. Hydronephrosis: Trace fullness of the left lower pole collecting system. Calculi: 7 mm renal calculus in the interpolar region and a 5 mm renal calculus in the left lower pole, which are seen on the outside CT examination. Focal lesions: Question of medullary nephrocalcinosis, not confirmed on the recent prior CT scan. URINARY BLADDER: Volume: Normally distended. Wall thickness: Normal. Focal lesions: None. Ureteral jets: Observed bilaterally. Procedure Note Jr Cosby MD - 02/01/2025 US RENAL. HISTORY: 39F known b/l calculi, evaluate for movement of stones intoureter on R. COMPARISON: CT chest abdomen pelvis dated 01/26/2025 performed at [facility], images available on [employer]. TECHNIQUE: Grayscale and color Doppler imaging were performed. FINDINGS: RIGHT KIDNEY: Size: 13.9 in maximal sagittal dimension. 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 Thereis evidence of scarring and partial rotational anomaly of the lower polemoiety. Two renal calculi are seen within the lower pole moiety [id number] and 8 mm, which are seen on the outside CT examination. There isdilatation of the proximal lower pole moiety ureter measuring up to 1.0cm, similar compared to outside CT examination. The apparent right upperpole moiety is unremarkable. Slightly hyperdense renal pyramids raising question of medullarynephrocalcinosis, not confirmed on the recent prior CT scan. LEFT KIDNEY: Size: 13.4 in maximal sagittal dimension. Echogenicity: Normal. Hydronephrosis: Trace fullness of the left lower pole collecting system. Calculi: 7 mm renal calculus in the interpolar region and a 5 mm renalcalculus in the left lower pole, which are seen on the outside CTexamination. Focal lesions: Question of medullary nephrocalcinosis, not confirmed onthe recent prior CT scan. URINARY BLADDER: Volume: Normally distended. Wall thickness: Normal. Focal lesions: None. Ureteral jets: Observed bilaterally. IMPRESSION: There is redemonstration of dilatation of the proximal ureter of the lowerpole , similar compared to outside CT examination. Redemonstration ofbilateral renal calculi, in similar position compared to outside CTexamination, as described above. The bilateral ureteral jets arevisualized. [facility] Radiology Notify System Classification: Routine. Report initiated by: Tariq Zee MD Reported and signed by: Jr Cosby MD [facility] us Marie Woodson MD [facility] US ORDERABLES Final Result * POCT urine (02/01/2025 1:02 AM EST) Preg Test, Ur, POC Negative Negative [facility] Line in Control Window? (+ Control) Yes [facility] Background Clear? (- Control) Yes [facility] Kit Lot Number [id number] [facility] Expiration Date 04/29/2026 [facility] Urine URINE SPECIMEN / Unknown 02/01/2025 1:02 AM EST us Marie Woodson MD POINT OF CARE TEST ORDERABLES F inal Result [facility] [place], [place], [facility] * (ABNORMAL) Urine microscopic (BH GH LMW YH) (02/01/2025 12:09 AM EST) RBC/HPF, UA 41(H) 0 - 2 /HPF 02/01/2025 12:33 AM EST [facility] DEPARTMENT OF LABORATORY MEDICINE WBC/HPF, UA 35(H) 0 - 5 /HPF 02/01/2025 12:33 AM EST [facility] DEPARTMENT OF LABORATORY MEDICINE Bacteria, UA Rare None-Rare /HPF 02/01/2025 12:33 AM EST [facility] DEPARTMENT OF LABORATORY MEDICINE Urine Squamous Epithelial Cells, UA 3 0 - 5 /HPF 02/01/2025 12:[address] [facility] DEPARTMENT OF LABORATORY MEDICINE Hyaline Casts, UA 1 0 - 3 /LPF 02/01/2025 12:[address] [facility] DEPARTMENT OF LABORATORY MEDICINE Ca Oxalate Maria T, UA Moderate(A ) None /HPF 02/01/2025 12:[address] [facility] DEPARTMENT OF LABORATORY MEDICINE Urine Collection / Unknown 02/01/2025 12:09 AM EST 02/01/2025 12:24 AM EST us Marie Woodson MD URINE ORDERABLES Final Result Performing Organization Address City/State/[facility] Co de Phone Number [facility] DEPARTMENT OF LABORATORY MEDICINE [address] [place] [address] * (ABNORMAL) Urine macroscopic (02/01/2025 12:09 AM EST) Clarity, UA Cloudy(A) Clear 02/01/2025 12:[address] [facility] DEPARTMENT OF LABORATORY MEDICINE Color, UA Yellow Yellow, Colorless 02/01/2025 12:[address] [facility] DEPARTMENT OF LABORATORY MEDICINE Specific [place], UA 1.023 1.005 - 1.030 02/01/2025 12:[address] [facility] DEPARTMENT OF LABORATORY MEDICINE pH, UA 5.5 5.5 - 7.5 02/01/2025 12:[address] [facility] DEPARTMENT OF LABORATORY MEDICINE Protein, UA 1+(A) Negative, Trace 02/01/2025 12:[address] [facility] DEPARTMENT OF LABORATORY MEDICINE Glucose, UA Negative Negative 02/01/2025 12:[address] [facility] DEPARTMENT OF LABORATORY MEDICINE Ketones, UA Negative Negative 02/01/2025 12:[address] [facility] DEPARTMENT OF LABORATORY MEDICINE Blood, UA 1+(A) Negative 02/01/2025 12:[address] [facility] DEPARTMENT OF LABORATORY MEDICINE Bilirubin, UA Negative Negative 02/01/2025 12:[address] [facility] DEPARTMENT OF LABORATORY MEDICINE Leukocytes, UA 2+(A) Negative 02/01/2025 12:[address] [facility] DEPARTMENT OF LABORATORY MEDICINE Nitrite, UA Negative Negative 02/01/2025 12:28 AM EST [facility] DEPARTMENT OF LABORATORY MEDICINE Urobilinogen, UA <2.0 <=2.0 mg/dL 02/01/2025 12:28 AM EST [facility] DEPARTMENT OF LABORATORY MEDICINE Urine Collection / Unknown 02/01/2025 12:09 AM EST 02/01/2025 12:24 AM EST us Marie Woodson MD URINE ORDERABLES Final Result Performing Organization Address [facility] de Phone Number [facility] DEPARTMENT OF LABORATORY MEDICINE [address] [place] [address] * (ABNORMAL) T4, free (01/31/2025 11:19 PM EST) Free T4 5.01(H) See Comment ng/dL 02/01/2025 1:26 AM EST [facility] DEPARTMENT OF LABORATORY MEDICINE Comment: For patients taking levothyroxine, the daily therapeutic dose may cause some patients to have slightly higher FT4 than in the general population and TSH should be the main arbiter of dosing adequacy for those whose hypothyroidism is of primary origin (ie. not related to hypothalamic-pituitary disease.) Of 26 commonly used pharmaceuticals tested in vitro, only furosemide caused elevated free thyroxine (FT4) findings at the daily therapeutic dosage level. Male & Non- Females: 0.80-1.70 ng/dL 1st Trimester: 0.90-1.40 ng/dL 2nd Trimester: 0.70-1.30 ng/dL Blood Venipuncture / Unknown 01/31/2025 11:19 PM EST 01/31/2025 11:59 PM EST us Marie Woodson MD LAB BLOOD ORDERABLES Final Resu lt Performing Organization Address [facility] Co de Phone Number [facility] DEPARTMENT OF LABORATORY MEDICINE [address] [place] [address] * (ABNORMAL) T3 (01/31/2025 11:19 PM EST) T3, Total 309.0(H) See Comment ng/dL 02/01/2025 12:[address] [facility] DEPARTMENT OF LABORATORY MEDICINE Comment: Male & Non- Females: 72.0-153.0 ng/dL 1st Trimester: 92.0-224.0 ng/dL 2nd Trimester: 99.0-242.0 ng/dL Blood Venipuncture / Unknown 01/31/2025 11:19 PM EST 01/31/2025 11:59 PM EST us Marie Woodson MD LAB BLOOD ORDERABLES Final Resu lt [facility] DEPARTMENT OF LABORATORY MEDICINE [address] [place] [address], [facility] [phone] * (ABNORMAL) Hepatic function panel (01/31/2025 11:19 PM EST) Total Bilirubin 0.3 <=1.2 mg/dL 02/02/20 12:[address] [facility] DEPARTMENT OF LABORATORY MEDICINE Bilirubin, Direct 0.1 <=0.2 mg/dL 2024 12:[address] [facility] DEPARTMENT OF LABORATORY MEDICINE Comment: Effective 11/26/2024 [facility] changed the Direct Bilirubin testing method from the Martha method to the Randox method. Alkaline Phosphatase 85 9 - 122 U/L 02/01/2025 12:[address] [facility] DEPARTMENT OF LABORATORY MEDICINE Alanine Aminotransferase (ALT) 21 10 - 35 U/L 02/01/2025 12:[address] [facility] DEPARTMENT OF LABORATORY MEDICINE Comment:Calcium dobesilate c an cause artificially low ALT results at therapeutic concentrations Aspartate Aminotransferase (AST) 37(H) 10 - 35 U/L 02/01/2025 12:[address] [facility] DEPARTMENT OF LABORATORY MEDICINE Comment:Sample slightly hemo lyzed. Results may be falsely elevated due to hemolysis. AST/ALT Ratio 1.8 Reference Range Not Established 02/01/2025 12:[address] [facility] DEPARTMENT OF LABORATORY MEDICINE Total Protein 7.4 5.9 - 8.3 g/dL 025 12:[address] [facility] DEPARTMENT OF LABORATORY MEDICINE Albumin 4.3 3.6 - 5.1 g/dL 02/01/2025 12:55 AM EST [facility] DEPARTMENT OF LABORATORY MEDICINE Globulin 3.1 2.0 - 3.9 g/dL 02/01/2025 12:55 AM EST [facility] DEPARTMENT OF LABORATORY MEDICINE A/G Ratio 1.4 1.0 - 2.2 02/01/2025 12:55 AM EST [facility] DEPARTMENT OF LABORATORY MEDICINE Blood Venipuncture / Unknown 01/31/2025 11:19 PM EST 01/31/2025 11:59 PM EST us Marie Woodson MD LAB BLOOD ORDERABLES Final Resu lt [facility] DEPARTMENT OF LABORATORY MEDICINE [address] [place] [address] * hCG, quantitative (01/31/2025 11:19 PM EST) hCG, Quantitative <1 See Comment mIU/mL 02/01/2025 12:54 AM EST [facility] DEPARTMENT OF LABORATORY MEDICINE Comment: Males and non females: <5 mIU/mL females: 1st week of gestation: 5-50 mIU/mL Levels double every 1.5-2 days in early first trimester Peak: 300,000 mIU/mL in late first trimester Effective 12/25/2018 the Clinical Chemistry lab at [facility] has switched to a new Total hCG assay with improved detection for various hCG forms to aid in detection of various disease conditions like ectopic , choriocarcinoma, testicular cancer, trophoblastic diseases, and nontrophoblastic tumors. Blood Venipuncture / Unknown 01/31/2025 11:19 PM EST 01/31/2025 11:59 PM EST us Marie Woodson MD LAB BLOOD ORDERABLES Final Resu lt Performing Organization Address City/[facility]/ZIP Co de Phone Number [facility] DEPARTMENT OF LABORATORY MEDICINE [address] [place] [address] * (ABNORMAL) Basic metabolic panel (01/31/2025 11:19 PM EST) Sodium 140 136 - 144 mmol/L 02/01/2025 12:[address] [facility] DEPARTMENT OF LABORATORY MEDICINE Potassium 4.0 3.3 - 5.3 mmol/L 02/01/2025 12:[address] [facility] DEPARTMENT OF LABORATORY MEDICINE Comment:Sample slightly hemo lyzed. Results may be falsely elevated due to hemolysis. Chloride 103 98 - 107 mmol/L 02/01/2025 12:[address] [facility] DEPARTMENT OF LABORATORY MEDICINE CO2 21 20 - 30 mmol/L 02/01/2025 12:[address] [facility] DEPARTMENT OF LABORATORY MEDICINE Anion Gap 16 7 - 17 02/01/2025 12:[address] [facility] DEPARTMENT OF LABORATORY MEDICINE Glucose 109(H) 70 - 100 mg/dL 02/01/2025 12:55 AM [facility] OF LABORATORY MEDICINE BUN 11 6 - 20 mg/dL 02/01/2025 12:[address] [facility] DEPARTMENT OF LABORATORY MEDICINE Creatinine 0.47 0.40 - 1.30 mg/dL 02/01/2025 12:[address] [facility] DEPARTMENT OF LABORATORY MEDICINE Calcium 9.8 8.8 - 10.2 mg/dL 02/01/2025 12:[address] [facility] DEPARTMENT OF LABORATORY MEDICINE BUN/Creatinine Ratio 23.4(H) 8.0 - 23.0 02/01/2025 12:[address] [facility] DEPARTMENT OF LABORATORY MEDICINE eGFR (Creatinine) >60 >=60 mL/min/1.7 3m2 02/01/2025 12:[address] [facility] DEPARTMENT OF LABORATORY MEDICINE Comment: [facility] utilizes CKD-EPI Creatinine 2020 to report eGFR. Values < 60 mL/min/1.73 m2 may indicate CKD if present for more than three months AND creatinine is at steady state. The eGFR provides a rough estimate of kidney function. For further guidance, please refer to the CKD: Adult Diesel Engine Mechanic Apprentice Signature pathway. Creatinine Delta 02/01/2025 12:[address] [facility] DEPARTMENT OF LABORATORY MEDICINE Comment:No previous creatini ne <5.00 mg/dL is available within the previous 12 months to calculate a delta creatinine. Blood Venipuncture / Unknown 01/31/2025 11:19 PM EST 01/31/2025 11:59 PM EST us Marie P Chintan MD LAB BLOOD ORDERABLES Final Resu lt [facility] DEPARTMENT OF LABORATORY MEDICINE [address] [place] [address], [facility] [phone] * (ABNORMAL) CBC auto differential (01/31/2025 11:19 PM EST) WBC 8.3 4.0 - 11.0 x1000/ L 02/01/2025 12:[address] [facility] DEPARTMENT OF LABORATORY MEDICINE RBC 4.47 4.00 - 6.00 M/ L 02/01/2025 12:[address] [facility] DEPARTMENT OF LABORATORY MEDICINE Hemoglobin 13.5 11.7 - 15.5 g/dL 02/01/2025 12:[address] [facility] DEPARTMENT OF LABORATORY MEDICINE Hematocrit 38.60 35.00 - 45.00 % 02/01/2025 12:[address] [facility] DEPARTMENT OF LABORATORY MEDICINE MCV 86.4 80.0 - 100.0 fL 02/01/2025 12:[address] [facility] DEPARTMENT OF LABORATORY MEDICINE MCH 30.2 27.0 - 33.0 pg 02/01/2025 12:[address] [facility] DEPARTMENT OF LABORATORY MEDICINE MCHC 35.0 31.0 - 36.0 g/dL 02/01/2025 12:[address] [facility] DEPARTMENT OF LABORATORY MEDICINE RDW-CV 12.7 11.0 - 15.0 % 02/01/2025 12:[address] [facility] DEPARTMENT OF LABORATORY MEDICINE Platelets 366 150 - 420 x1000/ L 02/01/2025 12:[address] [facility] DEPARTMENT OF LABORATORY MEDICINE MPV 11.9 8.0 - 12.0 fL 02/01/2025 12:[address] [facility] DEPARTMENT OF LABORATORY MEDICINE Neutrophils 44.4 39.0 - 72.0 % 02/01/2025 12:[address] [facility] DEPARTMENT OF LABORATORY MEDICINE Lymphocytes 47.5 17.0 - 50.0 % 02/01/2025 12:[address] [facility] DEPARTMENT OF LABORATORY MEDICINE Monocytes 6.4 4.0 - 12.0 % 02/01/2025 12:[address] [facility] DEPARTMENT OF LABORATORY MEDICINE Eosinophils 1.4 0.0 - 5.0 % 02/01/2025 12:[address] [facility] DEPARTMENT OF LABORATORY MEDICINE Basophil 0.1 0.0 - 1.4 % 02/01/2025 12:[address] [facility] DEPARTMENT OF LABORATORY MEDICINE Immature Granulocytes 0.2 0.0 - 1.0 % 02/01/2025 12:[address] [facility] DEPARTMENT OF LABORATORY MEDICINE nRBC 0.0 0.0 - 1.0 % 02/01/2025 12:[address] [facility] DEPARTMENT OF LABORATORY MEDICINE Absolute Lymphocyte Count 3.95(H) 0.60 - 3.70 x 1000/ L 02/01/2025 12:[address] [facility] DEPARTMENT OF LABORATORY MEDICINE Monocyte Absolute Count 0.53 0.00 - 1.00 x 1000/ L 02/01/2025 12:[address] [facility] DEPARTMENT OF LABORATORY MEDICINE Eosinophil Absolute Count 0.12 0.00 - 1.00 x 1000/ L 02/01/2025 12:[address] [facility] DEPARTMENT OF LABORATORY MEDICINE Basophil Absolute Count 0.01 0.00 - 1.00 x 1000/ L 02/01/2025 12:[address] [facility] DEPARTMENT OF LABORATORY MEDICINE Absolute Immature Granulocyte Count 0.02 0.00 - 0.30 x 1000/ L 02/01/2025 12:[address] [facility] DEPARTMENT OF LABORATORY MEDICINE Absolute nRBC 0.00 0.00 - 1.00 x 1000/ L 02/01/2025 12:[address] [facility] DEPARTMENT OF LABORATORY MEDICINE ANC (Abs Neutrophil Count) 3.68 2.00 - 7.60 x 1000/ L 02/01/2025 12:[address] [facility] DEPARTMENT OF LABORATORY MEDICINE Blood Venipuncture / Unknown 01/31/2025 11:19 PM EST 02/01/2025 12:00 AM EST us Marie Woodson MD LAB BLOOD ORDERABLES Final Resu lt [facility] DEPARTMENT OF LABORATORY MEDICINE [address] [place] [id number], [facility] [phone] * (ABNORMAL) TSH w/reflex to FT4 (01/31/2025 11:19 PM EST) Thyroid Stimulating Hormone <0.005(L) See Comment IU/mL 02/01/2025 12:55 AM EST [facility] DEPARTMENT OF LABORATORY MEDICINE Comment: Male & Non- Females: 0.270-4.200 IU/mL 1st Trimester: 0.110-3.480 IU/mL 2nd Trimester: 0.320-3.850 IU/mL Blood Venipuncture / Unknown 01/31/2025 11:19 PM EST 01/31/2025 11:59 PM EST us Marie Woodson MD LAB BLOOD ORDERABLES Final Resu lt Performing Organization Address City/[facility]/ZIP Co de Phone Number [facility] DEPARTMENT OF LABORATORY MEDICINE [address] [place] [address] * Phosphorus (01/31/2025 11:19 PM EST) Phosphorus 4.1 2.2 - 4.5 mg/dL 02/01/2025 12:54 AM EST [facility] DEPARTMENT OF LABORATORY MEDICINE Blood Venipuncture / Unknown 01/31/2025 11:19 PM EST 01/31/2025 11:59 PM EST us Marie Woodson MD LAB BLOOD ORDERABLES Final Resu lt Performing Organization Address [facility] Co de Phone Number [facility] DEPARTMENT OF LABORATORY MEDICINE [address] [place] [address] * Magnesium (01/31/2025 11:19 PM EST) Magnesium 1.7 1.7 - 2.4 mg/dL 02/01/2025 12:54 AM EST [facility] DEPARTMENT OF LABORATORY MEDICINE Blood Venipuncture / Unknown 01/31/2025 11:19 PM EST 01/31/2025 11:59 PM EST us Marie Woodson MD LAB BLOOD ORDERABLES Final Resu lt Performing Organization Address City/[facility]/ZIP Co de Phone Number [facility] DEPARTMENT OF LABORATORY MEDICINE [address] [place], [place] [id number] [place] [address] * EKG (01/31/2025 8:19 PM EST) Heart Rate 105 bpm [facility] EKG QRS Interval 77 ms [facility] EKG QT Interval 331 ms [facility] EKG QTC Interval 439 ms [facility] EKG P [place] 29 deg [facility] EKG QRS [place] 37 deg [facility] EKG T Wave [place] 57 deg [facility] EKG P-R Interval 129 msec [facility] EKG SEVERITY Borderline ECG severity [facility] EKG Comment::Sinus tachycardia:C onsider left ventricular hypertrophy:Electronically Signed On 02-01-2025 2:27:04 EST by Marie Woodson MD OTHER / Unknown 01/31/2025 8 :19 PM EST Miguel Christianson MD ECG ORDERABLES Final Result [facility] EKG documented in this encounter Visit Diagnoses Diagnosis Graves disease- Primary Toxic diffuse goiter without mention of thyrotoxic crisis or storm Graves disease Toxic diffuse goiter without mention of thyrotoxic crisis or storm Hyperthyroidism Thyrotoxicosis without mention of goiter or other cause, without mention of thyrotoxic crisis or storm Nephrolithiasis Calculus of kidney Acute cystitis with hematuria Acute cystitis Mediastinal mass Swelling, mass, or lump in chest Malnutrition, unspecified type (HC Code) Right nephrolithiasis 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 Given 02/08/2025 8:43 AM EST 1,000 mg Given 02/07/2025 11:09 PM EST 1,000 mg Given 02/07/2025 4:03 PM EST 1,000 mg acetaminophen (TYLENOL) tablet 1,000 mg 1,000 mg, Oral, Every 6 Hours Scheduled, First dose (after last modification) on Sat02/08/25 at 1200, Maximum dose of acetaminophen is 4000 mg from all sources in 24 hours. Given 02/08/2025 11:52 AM EST 1,000 mg acetaminophen (TYLENOL) tablet 650 mg 650 mg, Oral, EVERY 6 HOURS PRN, mild Pain (PIS 1-3), for adult patients may also give for higher pain score per patient preference, moderate Pain (PIS 4-6), for adult patients may also give for higher pain score per patient preference, Starting on Sat02/01/25 at 0613, Maximum dose of acetaminophen is 4000 mg from all sources in 24 hours. Given 02/01/2025 10:20 PM EST 650 mg acetaminophen (TYLENOL) tablet 975 mg 975 mg, Oral, Every 8 Hours Scheduled, First dose (after last modification) on Sat02/02/25 at 2200, Maximum dose of acetaminophen is 4000 mg from all sources in 24 hours. Given 02/06/2025 5:53 AM EST 975 mg Given 02/05/2025 9:32 PM EST 975 mg Given 02/05/2025 5:24 AM EST 975 mg ALPRAZolam (XANAX) tablet 0.25 mg 0.25 mg, Oral, 3 TIMES DAILY PRN, anxiety, Starting on Sat02/01/25 at 0531, Common Side Effects: Confusion, dizziness, drowsiness and mood changes. Avoid abrupt discontinuation. Concomitant use of benzodiazepines and opioids should be limited in duration and reserved for use in patients in whom alternative treatment options are inadequate due to risk of profound sedation and respiratory depression., OP SIG:Take 1 tablet (0.25 mg total) by mouth 3 (three) times daily as needed for anxiety. Given 02/01/2025 6:30 PM EST 0.25 mg Given 02/01/2025 11:15 AM EST 0.25 mg bisacodyL (DULCOLAX) suppository 10 mg 10 mg, Rectal, DAILY PRN, constipation, Starting on 02/06/25 at 1401, Common Side Effects: Diarrhea, discomfort, cramps. ciprofloxacin HCl (CIPRO) tablet 500 mg 500 mg, Oral, EVERY 12 HOURS, First dose on Sat02/01/25 at 0615, Common Side Effects: Stomach upset, tendon pain or swelling., Reason for Use (RFU): Urinary tract infection (empiric or culture-documented), Pharmacist will implement [facility] Renal Dose Adjustment Protocol unless otherwise specified: Implement Protocol Given 02/02/2025 5:39 AM EST 500 mg Given 02/01/2025 6:10 PM EST 500 mg Given 02/01/2025 6:09 AM EST 500 mg dextrose 5 % in water (D5W) infusion 100 mL/hr, Intravenous, CONTINUOUS, Starting on Sat02/02/25 at 0815 New Bag 02/02/2025 8:21 AM EST 100 mL/hr 100 mL/hr diazePAM (VALIUM) syringe 2.5 mg 2.5 mg, IV Push, ONCE, On Sat02/02/25 at 1700, For 1 dose, Maximum IV Push dose is 20 mg. If ordered IV Push, administer undiluted at a rate of 5 mg over 1 minute and inject dose directly into a large vein or IV set port closest to the patient to reduce the chance of precipitation and thrombosis. RECOMMENDED monitoring for FIRST Dose or Doses greater than 10 mg includes baseline BP and Respiratory Monitoring, repeated Q15 minutes x 1. No monitoring recommended for maintenance use or subsequent doses less than 10 mg. Additional RECOMMENDED monitoring for all doses includes Level of Sedation and Peripheral IV Assessment. If extravasation occurs, contact Provider and see Extravasation Order Set. Irritant. Common Side Effects: Confusion, dizziness, drowsiness and mood changes. Contains propylene glycol, which may be associated with toxicity when administered at high doses or for prolonged periods., Indication: Other indication (clearly document in patient s chart) Given 02/02/2025 5:36 PM EST 2.5 mg diazePAM (VALIUM) tablet 2 mg 2 mg, Oral, ONCE, On Sat02/02/25 at 0515, For 1 dose, Common Side Effects: Confusion, dizziness, drowsiness, mood changes. Given 02/02/2025 5:38 AM EST 2 mg diazePAM (VALIUM) tablet 2 mg 2 mg, Oral, 2 TIMES DAILY PRN, anxiety, Starting on Sat02/02/25 at 1545, Common Side Effects: Confusion, dizziness, drowsiness, mood changes. Given 02/05/2025 9:34 PM EST 2 mg Given 02/05/2025 5:24 AM EST 2 mg Given 02/04/2025 8:02 PM EST 2 mg diazePAM (VALIUM) tablet 2 mg 2 mg, Oral, ONCE, On 02/06/25 at 1000, For 1 dose, Common Side Effects: Confusion, dizziness, drowsiness, mood changes. Given 02/06/2025 10:36 AM EST 2 mg diazePAM (VALIUM) tablet 2 mg 2 mg, Oral, 2 TIMES DAILY PRN, anxiety, muscle spasms, for renal colic, Starting on 02/06/25 at 1359, Common Side Effects: Confusion, dizziness, drowsiness, mood changes. Given 02/08/2025 4:14 AM EST 2 mg Given 02/07/2025 4:03 PM EST 2 mg Given 02/07/2025 3:54 AM EST 2 mg diazePAM (VALIUM) tablet 5 mg 5 mg, Oral, ONCE, On 02/01/25 at 1300, For 1 dose, Common Side Effects: Confusion, dizziness, drowsiness, mood changes. Given 02/01/2025 12:58 PM EST 5 mg enoxaparin (LOVENOX) syringe 40 mg 40 mg, Subcutaneous, Every 24 Hours Scheduled (Daily), First dose on Sat02/01/25 at 0900, This medication may be automatically dose adjusted by the Pharmacists for patients with BMI > 40 kg/m2 according the VTE Prophylaxis for BMI > 40 Protocol Contraindicated with epidural use. Common Side Effects: Bruising, minor and major bleeding. Given 02/08/2025 8:44 AM EST 40 mg Right Upper Abdomen Given 02/07/2025 11:16 AM EST 40 mg R ight Upper Arm Given 02/06/2025 10:00 AM EST 40 mg R ight Upper Arm gadoterate meglumine (DOTAREM) 0.5 mmol/mL (376.9 mg/mL) injection 14 mL 14 mL, Intravenous, IMG ONCE PRN, imaging study, Starting on 02/01/25 at 1356, For 1 dose, To ensure complete injection of contrast agent, flush line with 0.9% NaCl after administration. Vesicant agents may cause severe tissue damage, including necrosis, if they extravasate into tissue. Given 02/01/2025 1:56 PM EST 1 4 mLs HYDROmorphone (DILAUDID) injection 0.5 mg 0.5 mg, IV Push, ONCE, On 01/31/25 at 2330, For 1 dose, If ordered IV Push, administer undiluted at a rate of 0.5mg over 1 minute. If ordered SC, administer over a few seconds. For SC dose volumes greater than 1.5 mL, use multiple injection sites. RECOMMENDED monitoring for Opiate Na ve patients includes BP and Respiratory Monitoring baseline and with pain and level of sedation re-assessment. No BP or Respiratory Monitoring recommended for Maintenance Opiate use patients. RECOMMENDED monitoring for all patients includes Level of Sedation. If ordered IV Push: Administer undiluted over 2 minutes (maximum rate = 0.5 mg/min)., REASON FOR USE: Morphine Shortage Given 01/31/2025 11:30 PM EST 0.5 mg HYDROmorphone (DILAUDID) injection 0.5 mg 0.5 mg, IV Push, ONCE, On Sat02/01/25 at 0245, For 1 dose, If ordered IV Push, administer undiluted at a rate of 0.5mg over 1 minute. If ordered SC, administer over a few seconds. For SC dose volumes greater than 1.5 mL, use multiple injection sites. RECOMMENDED monitoring for Opiate Na ve patients includes BP and Respiratory Monitoring baseline and with pain and level of sedation re-assessment. No BP or Respiratory Monitoring recommended for Maintenance Opiate use patients. RECOMMENDED monitoring for all patients includes Level of Sedation. If ordered IV Push: Administer undiluted over 2 minutes (maximum rate = 0.5 mg/min)., REASON FOR USE: Morphine Shortage Given 02/01/2025 2:[address] 0.5 mg HYDROmorphone (DILAUDID) injection 1 mg 1 mg, IV Push, EVERY 6 HOURS PRN, breakthrough Pain (PIS 4-10), If patient has inadequate response within 30 minutes of subcutaneous/IV or 1 hour of PO prn pain medication administration., Starting on Sat02/02/25 at 0749, For 7 days, If ordered IV Push, administer undiluted at a rate of 0.5mg over 1 minute. If ordered SC, administer over a few seconds. For SC dose volumes greater than 1.5 mL, use multiple injection sites. RECOMMENDED monitoring for Opiate Na ve patients includes BP and Respiratory Monitoring baseline and with pain and level of sedation re-assessment. No BP or Respiratory Monitoring recommended for Maintenance Opiate use patients. RECOMMENDED monitoring for all patients includes Level of Sedation. If ordered IV Push: Administer undiluted over 2 minutes (maximum rate = 0.5 mg/min)., REASON FOR USE: Pain refractory to morphine injection - Treatment requiring more than 10mg of parenteral morphine RESEARCH STATISTICIAN per hour for at least 2 hours Given 02/02/2025 9:17 AM EST 1 mg HYDROmorphone (DILAUDID) injection 1 mg 1 mg, IV Push, EVERY 6 HOURS PRN, breakthrough Pain (PIS 4-10), If patient has inadequate response within 30 minutes of subcutaneous/IV or 1 hour of PO prn pain medication administration., Starting on Sat02/02/25 at 1544, For 7 days, If ordered IV Push, administer undiluted at a rate of 0.5mg over 1 minute. If ordered SC, administer over a few seconds. For SC dose volumes greater than 1.5 mL, use multiple injection sites. RECOMMENDED monitoring for Opiate Na ve patients includes BP and Respiratory Monitoring baseline and with pain and level of sedation re-assessment. No BP or Respiratory Monitoring recommended for Maintenance Opiate use patients. RECOMMENDED monitoring for all patients includes Level of Sedation. If ordered IV Push: Administer undiluted over 2 minutes (maximum rate = 0.5 mg/min)., REASON FOR USE: Pain refractory to morphine injection - Treatment requiring more than 10mg of parenteral morphine RESEARCH STATISTICIAN per hour for at least 2 hours Given 02/08/2025 6:05 AM EST 1 mg Given 02/07/2025 6:21 PM EST 1 mg Given 02/07/2025 9:50 AM EST 1 mg HYDROmorphone (DILAUDID) injection syringe 0.5 mg 0.5 mg, Subcutaneous, ONCE, On Sat02/01/25 at 0815, For 1 dose, If ordered IV Push, administer undiluted at a rate of 0.5mg over 1 minute. If ordered SC, administer over a few seconds. For SC dose volumes greater than 1.5 mL, use multiple injection sites. RECOMMENDED monitoring for Opiate Na ve patients includes BP and Respiratory Monitoring baseline and with pain and level of sedation re-assessment. No BP or Respiratory Monitoring recommended for Maintenance Opiate use patients. RECOMMENDED monitoring for all patients includes Level of Sedation. Irritant, REASON FOR USE: Other, Other reason: Kidney stone pain Given 02/01/2025 8:18 AM EST 0.5 mg Left Upper Arm HYDROmorphone (DILAUDID) injection syringe 0.5 mg 0.5 mg, IV Push, ONCE, On Sat02/01/25 at 1845, For 1 dose, If ordered IV Push, administer undiluted at a rate of 0.5mg over 1 minute. If ordered SC, administer over a few seconds. For SC dose volumes greater than 1.5 mL, use multiple injection sites. RECOMMENDED monitoring for Opiate Na ve patients includes BP and Respiratory Monitoring baseline and with pain and level of sedation re-assessment. No BP or Respiratory Monitoring recommended for Maintenance Opiate use patients. RECOMMENDED monitoring for all patients includes Level of Sedation. Irritant, REASON FOR USE: History of chronic pain managed with hydromorphone Given 02/01/2025 6:43 PM EST 0.5 mg HYDROmorphone (DILAUDID) injection syringe 0.5 mg 0.5 mg, IV Push, EVERY 15 MIN PRN, severe Pain (PIS 7-10), Starting on Sat02/02/25 at 1254, For 4 doses, PACU, if patient is unable to take enteral (PO/NG/NJ) or has inadequate response within 30 minutes to enteral pain medication Irritant, REASON FOR USE: Pain Service Provider Given 02/02/2025 1:43 PM EST 0.5 mg HYDROmorphone (PF) (DILAUDID) 0.2 mg/mL syringe 0.2 mg 0.2 mg, IV Push, EVERY 15 MIN PRN, moderate Pain (PIS 4-6), for adult patients may also give for higher pain score per patient preference, Starting on Sat02/02/25 at 1254, For 4 doses, PACU, if patient is unable to take enteral (PO/NG/NJ) or has inadequate response within 30 minutes to enteral pain medication Irritant, REASON FOR USE: Pain Service Provider Given 02/02/2025 1:28 PM EST 0.2 mg hydrOXYzine (ATARAX) tablet 25 mg 25 mg, Oral, ONCE, On Sat02/01/25 at 0000, For 1 dose, Indication: Other indication (clearly document in patient s chart) Given 02/01/2025 12:09 AM EST 25 mg hydrOXYzine (ATARAX) tablet 25 mg 25 mg, Oral, ONCE, On Sat02/01/25 at 0015, For 1 dose Given 02/01/2025 2:35 AM EST 25 mg hydrOXYzine (ATARAX) tablet 50 mg 50 mg, Oral, EVERY 4 HOURS PRN, anxiety, Starting on Sat02/01/25 at 0249, First line anxiety, Indication: Other indication (clearly document in patient s chart) Given 02/01/2025 10:19 PM EST 50 mg Given 02/01/2025 7:38 AM EST 50 mg hydrOXYzine (ATARAX) tablet 50 mg 50 mg, Oral, EVERY 6 HOURS PRN, anxiety, Starting on Sat02/02/25 at 1652, First line anxiety, Indication: Other indication (clearly document in patient s chart) Given 02/04/2025 5:14 AM EST 50 mg Given 02/03/2025 10:02 PM EST 50 mg ibuprofen (ADVIL,MOTRIN) tablet 800 mg 800 mg, Oral, 4 Times Daily Scheduled, First dose on Sat02/08/25 at 1100, Common Side Effects: Stomach upset, dizziness, increased bleeding risk. Given 02/08/2025 11:52 AM EST 800 mg ketorolac (TORadol) injection 15 mg 15 mg, IV Push, ONCE, On Sat02/02/25 at 1830, For 1 dose, Maximum IV Push dose of 30 mg. If ordered IV Push, administer undiluted over 15 seconds. Common Side Effects include stomach upset, dizziness and increased bleeding risk. Maximum duration of therapy is 5 days. This drug may be automatically dose-adjusted by the Pharmacist according to the patient's renal function as approved by the [facility] Formulary Integration Committee (FIC)., Pharmacist will implement [facility] Renal Dose Adjustment Protocol unless otherwise specified: Implement Protocol Given 02/02/2025 6:54 PM EST 15 m g ketorolac (TORadol) injection 15 mg 15 mg, IV Push, ONCE, On Sat02/06/25 at 1200, For 1 dose, Maximum IV Push dose of 30 mg. If ordered IV Push, administer undiluted over 15 seconds. Common Side Effects include stomach upset, dizziness and increased bleeding risk. Maximum duration of therapy is 5 days. This drug may be automatically dose-adjusted by the Pharmacist according to the patient's renal function as approved by the [facility] Formulary Integration Committee (FIC)., Pharmacist will implement [facility] Renal Dose Adjustment Protocol unless otherwise specified: Implement Protocol Given 02/06/2025 12:30 PM EST 15 mg ketorolac (TORadol) injection 30 mg 30 mg, IV Push, Every 6 Hours Scheduled, First dose (after last modification) on 02/05/25 at 1845, For 3 doses, Maximum IV Push dose of 30 mg. If ordered IV Push, administer undiluted over 15 seconds. Common Side Effects include stomach upset, dizziness and increased bleeding risk. Maximum duration of therapy is 5 days. This drug may be automatically dose-adjusted by the Pharmacist according to the patient's renal function as approved by the [facility] Formulary Integration Committee (FIC)., Pharmacist will implement [facility] Renal Dose Adjustment Protocol unless otherwise specified: Implement Protocol Given 02/06/2025 5:53 AM EST 30 mg Given 02/06/2025 12:25 AM EST 30 mg Given 02/05/2025 6:39 PM EST 30 mg ketorolac (TORadol) injection 30 mg 30 mg, IV Push, ONCE, On 02/06/25 at 1200, For 1 dose, Maximum IV Push dose of 30 mg. If ordered IV Push, administer undiluted over 15 seconds. Common Side Effects include stomach upset, dizziness and increased bleeding risk. Maximum duration of therapy is 5 days. This drug may be automatically dose-adjusted by the Pharmacist according to the patient's renal function as approved by the [facility] Formulary Integration Committee (FIC)., Pharmacist will implement [facility] Renal Dose Adjustment Protocol unless otherwise specified: Implement Protocol Given 02/06/2025 12:23 PM EST 30 mg ketorolac (TORadol) injection 30 mg 30 mg, IV Push, Every 6 Hours Scheduled, First dose (after last reorder) on 02/06/25 at 1800, For 24 hours, Maximum IV Push dose of 30 mg. If ordered IV Push, administer undiluted over 15 seconds. Common Side Effects include stomach upset, dizziness and increased bleeding risk. Maximum duration of therapy is 5 days. This drug may be automatically dose-adjusted by the Pharmacist according to the patient's renal function as approved by the [facility] Formulary Integration Committee (FIC)., Pharmacist will implement [facility] Renal Dose Adjustment Protocol unless otherwise specified: Implement Protocol Given 02/07/2025 5:58 AM EST 30 m g Given 02/07/2025 12:27 AM EST 30 mg ketorolac (TORadol) injection 30 mg 30 mg, IV Push, Every 6 Hours Scheduled, First dose (after last modification) on 02/07/25 at 1200, For 1 day, Maximum IV Push dose of 30 mg. If ordered IV Push, administer undiluted over 15 seconds. Common Side Effects include stomach upset, dizziness and increased bleeding risk. Maximum duration of therapy is 5 days. This drug may be automatically dose-adjusted by the Pharmacist according to the patient's renal function as approved by the [facility] Formulary Integration Committee (FIC)., Pharmacist will implement [facility] Renal Dose Adjustment Protocol unless otherwise specified: Implement Protocol Given 02/08/2025 8:45 AM EST 30 mg Given 02/08/2025 1:53 AM EST 30 mg Given 02/07/2025 8:18 PM EST 30 mg lidocaine uro-jet (XYLOCAINE) 2 % jelly 11 mL 11 mL, Other, 2 Times Daily, First dose (after last modification) on 02/05/25 at 1830, Inna urethrally Given 02/05/2025 9:31 PM EST 11 mLs lidocaine uro-jet (XYLOCAINE) 2 % jelly 11 mL 11 mL, Other, 3 TIMES DAILY, First dose (after last modification) on 02/06/25 at 1400, Inna urethrally Given 02/07/2025 8:24 PM EST 11 mLs Given 02/07/2025 6:22 PM EST 11 mLs Given 02/07/2025 11:16 AM EST 11 mLs magnesium sulfate in water 2 gram/50 mL (4 %) (IVPB) 2 g 2 g, Intravenous, Administer over 60 Minutes, ONCE, On [place] 02/04/25 at 0845, For 1 dose, Magnesium Level 1.4-1.6 mg/dl AND CrCl >/= 30 mL/min: Replete with Magnesium sulfate 2g IV x 1 dose. New Bag 02/04/2025 9:14 AM EST 2 g 50 mL/hr magnesium sulfate in water 2 gram/50 mL (4 %) (IVPB) 2 g 2 g, Intravenous, Administer over 60 Minutes, ONCE, On 02/05/25 at 1145, For 1 dose, Magnesium Level 1.4-1.6 mg/dl AND CrCl >/= 30 mL/min: Replete with Magnesium sulfate 2g IV x 1 dose. New Bag 02/05/2025 2:15 PM EST 2 g 50 mL/hr magnesium sulfate in water 2 gram/50 mL (4 %) (IVPB) 2 g 2 g, Intravenous, Administer over 60 Minutes, ONCE, On 02/08/25 at 0815, For 1 dose, Magnesium Level 1.4-1.6 mg/dl AND CrCl >/= 30 mL/min: Replete with Magnesium sulfate 2g IV x 1 dose. New Bag 02/08/2025 8:59 AM EST 2 g 50 mL/hr methIMAzole (TAPAZOLE) tablet 15 mg 15 mg, Oral, 2 Times Daily Scheduled, First dose (after last modification) on Sat02/05/25 at 2100 Given 02/08/2025 8:43 AM EST 15 mg Given 02/07/2025 8:18 PM EST 15 mg Given 02/07/2025 11:15 AM EST 15 mg methIMAzole (TAPAZOLE) tablet 20 mg 20 mg, Oral, 2 Times Daily Scheduled, First dose on [place] 02/04/25 at 2100 Given 02/05/2025 9:40 AM EST 20 mg Given 02/04/2025 8:02 PM EST 20 mg metoclopramide (REGLAN) injection 10 mg 10 mg, IV Push, EVERY 6 HOURS PRN, nausea or vomiting, Starting on Sat02/02/25 at 1821, First line therapy. If patient cannot tolerate PO., Pharmacist will implement Pharmacist IV to Enteral Conversion Protocol unless otherwise specified: Implement Protocol, Pharmacist will implement [facility] Renal Dose Adjustment Protocol unless otherwise specified: Implement Protocol Given 02/08/2025 4:13 AM EST 10 mg Given 02/07/2025 8:18 PM EST 10 mg Given 02/07/2025 5:57 AM EST 10 mg metoclopramide (REGLAN) injection 5 mg 5 mg, IV Push, ONCE, On Sat02/02/25 at 1830, For 1 dose, Pharmacist will implement Pharmacist IV to Enteral Conversion Protocol unless otherwise specified: Implement Protocol, Pharmacist will implement [facility] Renal Dose Adjustment Protocol unless otherwise specified: Implement Protocol Given 02/02/2025 6:45 PM EST 5 mg metoclopramide HCl (REGLAN) tablet 10 mg 10 mg, Oral, EVERY 6 HOURS PRN, nausea or vomiting, Starting on Sat02/02/25 at 1821, First line therapy. , Pharmacist will implement [facility] Renal Dose Adjustment Protocol unless otherwise specified: Implement Protocol morphine (MSIR) tablet 15 mg 15 mg, Oral, EVERY 6 HOURS PRN, severe Pain (PIS 7-10), Starting on Sat02/01/25 at 1449, For 7 days, Common Side Effects: Confusion, nausea, vomiting, drowsiness, constipation, breathing problems. Given 02/05/2025 12:24 AM EST 15 mg Given 02/04/2025 8:14 AM EST 15 mg Given 02/04/2025 1:06 AM EST 15 mg multivitamin with folic acid (THERAGRAN) tablet 1 tablet 1 tablet, Oral, Daily, First dose on Sat02/01/25 at 0900 Given 02/08/2025 8:43 AM EST 1 tablet Given 02/07/2025 11:15 AM EST 1 tablet Given 02/06/2025 10:00 AM EST 1 tablet ondansetron (PF) (ZOFRAN) injection 4 mg 4 mg, IV Push, ONCE, On Sat01/31/25 at 2330, For 1 dose, Maximum IV Push dose of 16 mg. If ordered IV Push, administer undiluted over 2 minutes. Common side effects include: lightheaded, stomach upset, and headache. Irritant Given 01/31/2025 11:30 PM EST 4 mg ondansetron (PF) (ZOFRAN) injection 4 mg 4 mg, IV Push, EVERY 6 HOURS PRN, nausea or vomiting, Starting on Sat02/02/25 at 1544, First Line Therapy. If patient cannot tolerate PO. Irritant Given 02/02/2025 4:36 PM EST 4 mg ondansetron (PF) (ZOFRAN) injection 4 mg 4 mg, IV Push, EVERY 6 HOURS PRN, nausea or vomiting, Starting on Sat02/05/25 at 1849, Maximum IV Push dose of 16 mg. If ordered IV Push, administer undiluted over 2 minutes. Common side effects include: lightheaded, stomach upset, and headache. Irritant Given 02/07/2025 11:05 PM EST 4 mg Given 02/07/2025 9:38 AM EST 4 mg Given 02/07/2025 4:18 AM EST 4 mg ondansetron (PF) (ZOFRAN) injection 8 mg 8 mg, IV Push, ONCE, On Sat02/03/25 at 2030, For 1 dose, Maximum IV Push dose of 16 mg. If ordered IV Push, administer undiluted over 2 minutes. Common side effects include: lightheaded, stomach upset, and headache. Irritant Given 02/03/2025 9:21 PM EST 8 mg ondansetron (ZOFRAN) 0.8 mg/ml oral solution 4 mg 4 mg, Oral, EVERY 8 HOURS PRN, nausea or vomiting, Starting on Sat02/01/25 at 1808, Common Side Effects: Lightheaded, stomach upset, headache. Given 02/01/2025 6:10 PM EST 4 mg oxybutynin (DITROPAN) immediate release tablet 5 mg 5 mg, Oral, 3 Times Daily Scheduled, First dose on Sat02/05/25 at 2100 Given 02/08/2025 2:21 PM EST 5 mg Given 02/08/2025 8:43 AM EST 5 mg Given 02/07/2025 8:19 PM EST 5 mg oxyCODONE (ROXICODONE) Immediate Release tablet 10 mg 10 mg, Oral, EVERY 4 HOURS PRN, severe Pain (PIS 7-10), Starting on Sat02/02/25 at 1543, For 7 days, Common Side Effects: Confusion, nausea, vomiting, drowsiness, constipation, breathing problems. Given 02/06/2025 4:13 AM EST 10 mg Given 02/06/2025 12:43 AM EST 10 mg Given 02/05/2025 7:24 PM EST 10 mg oxyCODONE (ROXICODONE) Immediate Release tablet 5 mg 5 mg, Oral, EVERY 4 HOURS PRN, moderate Pain (PIS 4-6), for adult patients may also give for higher pain score per patient preference, Starting on Sat02/02/25 at 1543, For 7 days, Common Side Effects: Confusion, nausea, vomiting, drowsiness, constipation, breathing problems. Given 02/07/2025 4:15 AM EST 5 mg Given 02/04/2025 4:07 PM EST 5 mg Given 02/02/2025 9:08 PM EST 5 mg phenazopyridine (PYRIDIUM) tablet 200 mg 200 mg, Oral, 3 Times Daily With Meals, First dose (after last modification) on [place] 02/04/25 at 1200 Given 02/05/2025 2:03 PM EST 200 mg Given 02/05/2025 9:40 AM EST 200 mg Given 02/04/2025 5:09 PM EST 200 mg polyethylene glycol (MIRALAX) packet 17 g 17 g, Oral, Daily, First dose on Sat02/05/25 at 0900, Common Side Effects: Diarrhea, discomfort, cramps. Given 02/05/2025 9:40 AM EST 17 g polyethylene glycol (MIRALAX) packet 17 g 17 g, Oral, 2 Times Daily Scheduled, First dose (after last modification) on Sat02/05/25 at 2100, Common Side Effects: Diarrhea, discomfort, cramps. Given 02/06/2025 10:00 AM EST 17 g Given 02/05/2025 9:32 PM EST 17 g polyethylene glycol (MIRALAX) packet 34 g 34 g, Oral, 2 Times Daily Scheduled, First dose (after last modification) on 02/06/25 at 2100, Common Side Effects: Diarrhea, discomfort, cramps. Given 02/07/2025 8:18 PM EST 34 g Given 02/06/2025 8:22 PM EST 34 g propranoloL (INDERAL) Immediate Release tablet 20 mg 20 mg, Oral, EVERY 8 HOURS, First dose (after last modification) on 02/06/25 at 2030, Hold for SBP < 90 mm Hg or HR < 50 BPM Common Side Effects: Fatigue, dizziness, hypotension, bradycardia. Given 02/08/2025 2:21 PM EST 20 mg Given 02/08/2025 8:42 AM EST 20 mg Given 02/07/2025 11:12 PM EST 20 mg propranoloL (INDERAL) immediate release tablet 40 mg 40 mg, Oral, EVERY 8 HOURS, First dose on 01/31/25 at 2330, Hold for SBP < 90 mm Hg or HR < 50 BPM Common Side Effects: Fatigue, dizziness, hypotension, bradycardia. Given 02/01/2025 7:38 AM EST 40 mg Given 01/31/2025 11:33 PM EST 40 mg propranoloL (INDERAL) Immediate Release tablet 40 mg 40 mg, Oral, EVERY 8 HOURS, First dose (after last modification) on Sat02/02/25 at 1530, Hold for SBP < 90 mm Hg or HR < 50 BPM Common Side Effects: Fatigue, dizziness, hypotension, bradycardia. Given 02/05/2025 6:26 PM EST 40 mg Given 02/05/2025 9:40 AM EST 40 mg Given 02/05/2025 12:17 AM EST 40 mg propranoloL (INDERAL) Immediate Release tablet 60 mg 60 mg, Oral, EVERY 8 HOURS, First dose (after last modification) on Sat02/01/25 at 1530, Hold for SBP < 90 mm Hg or HR < 50 BPM Common Side Effects: Fatigue, dizziness, hypotension, bradycardia. Given 02/01/2025 3:05 PM EST 60 mg propylthiouraciL (PTU) tablet 100 mg 100 mg, Oral, 3 TIMES DAILY, First dose on Sat01/31/25 at 2330 Given 02/02/2025 9:07 PM EST 100 mg Given 02/02/2025 8:13 AM EST 100 mg Given 02/01/2025 10:20 PM EST 100 mg propylthiouraciL (PTU) tablet 150 mg 150 mg, Oral, 3 TIMES DAILY, First dose (after last modification) on Sat02/03/25 at 0800 Given 02/04/2025 8:14 AM EST 150 mg Given 02/03/2025 8:09 PM EST 150 mg Given 02/03/2025 1:48 PM EST 150 mg senna (SENOKOT) tablet 8.6 mg 8.6 mg (1 tablet), Oral, Daily, First dose (after last modification) on 02/06/25 at 1415, Common Side Effects: Diarrhea, discomfort, cramps. Given 02/06/2025 3:00 PM EST 8.6 mg sodium chloride 0.9% infusion 150 mL/hr, Intravenous, CONTINUOUS, Starting on Sat02/01/25 at 0615, For 7 hours, X 1 liter New Bag 02/01/2025 7:29 AM EST 150 mL/hr 150 mL/hr tamsulosin (FLOMAX) 24 hr capsule 0.4 mg 0.4 mg, Oral, Nightly, First dose on Sat02/01/25 at 2100, Swallow whole or capsule may be opened and contents sprinkled on small amount of soft food (i.e. pudding, applesauce) and administered immediately (do not store or chew). Do not crush pellets if given via feeding tube. Avoid administration via J-tube due to risk of clogging., Reason for Use (RFU): Ureteral Calculi Expulsion Given 02/07/2025 8:24 PM EST 0.4 mg Given 02/06/2025 8:22 PM EST 0.4 mg Given 02/05/2025 9:32 PM EST 0.4 mg traZODone (DESYREL) tablet 25 mg 25 mg, Oral, Nightly, First dose on 02/06/25 at 2100, Common Side Effects: Sedation, headache, dizziness, nausea. Given 02/07/2025 8:18 PM EST 25 mg Given 02/06/2025 8:22 PM EST 25 mg documented in this encounter Active and Recently Administered Medications Times are shown in EST. Scheduled Medication Order 02/06/2025 02/07/2025 02/08/2025 acetaminophen (TYLENOL) tablet 1,000 mg (CANCELED) 1,000 mg, Oral, Every 8 Hours Scheduled, First dose (after last modification) on 02/06/25 at 1400, Maximum dose of acetaminophen is 4000 mg from all sources in 24 hours. 1500 (Given - Provider: Arely Dimas RN)2114 (Given - Provider: Carolyn Fajardo RN) 0613 (Not Given - Provider: Carolyn Fajardo RN - Reason: Nausea/Vomiting)1603 (Given - Provider: Arely Dimas RN)2309 (Given - Provider: Carolyn Fajardo RN) 0843 (Given - Provider: Shellie Marie, YOLANDA) acetaminophen (TYLENOL) tablet 1,000 mg 1,000 mg, Oral, Every 6 Hours Scheduled, First dose (after last modification) on Sat02/08/25 at 1200, Maximum dose of acetaminophen is 4000 mg from all sources in 24 hours. 1152 (Given - Provider: Shellie Marie, YOLANDA)1800 (Due) acetaminophen (TYLENOL) tablet 975 mg (CANCELED) 975 mg, Oral, Every 8 Hours Scheduled, First dose (after last modification) on Sat02/02/25 at 2200, Maximum dose of acetaminophen is 4000 mg from all sources in 24 hours. 0553 (Given - Provider: Nat Yao RN) diazePAM (VALIUM) tablet 2 mg (COMPLETED) 2 mg, Oral, ONCE, On 02/06/25 at 1000, For 1 dose, Common Side Effects: Confusion, dizziness, drowsiness, mood changes. 1036 (Given - Provider: Arely Dimas RN) enoxaparin (LOVENOX) syringe 40 mg 40 mg, Subcutaneous, Every 24 Hours Scheduled (Daily), First dose on Sat02/01/25 at 0900, This medication may be automatically dose adjusted by the Pharmacists for patients with BMI > 40 kg/m2 according the [facility] Prophylaxis for BMI > 40 Protocol Contraindicated with epidural use. Common Side Effects: Bruising, minor and major bleeding. 1000 (Given - Provider: Arely Dimas RN) 1116 (Given - Provider: Arely Dimas RN) 0844 (Given - Provider: Shellie Marie RN) ibuprofen (ADVIL,MOTRIN) tablet 800 mg 800 mg, Oral, 4 Times Daily Scheduled, First dose on Sat02/08/25 at 1100, Common Side Effects: Stomach upset, dizziness, increased bleeding risk. 1152 (Given - Provider: Shellie Marie RN)1800 (Due) ketorolac (TORadol) injection 15 mg (COMPLETED)(Linked Group 1) 15 mg, IV Push, ONCE, On 02/06/25 at 1200, For 1 dose, Maximum IV Push dose of 30 mg. If ordered IV Push, administer undiluted over 15 seconds. Common Side Effects include stomach upset, dizziness and increased bleeding risk. Maximum duration of therapy is 5 days. This drug may be automatically dose-adjusted by the Pharmacist according to the patient's renal function as approved by the [facility] Formulary Integration Committee (FIC)., Pharmacist will implement [facility] Renal Dose Adjustment Protocol unless otherwise specified: Implement Protocol 1230 (Given - Provider: Arely Dimas RN) ketorolac (TORadol) injection 30 mg (COMPLETED) 30 mg, IV Push, Every 6 Hours Scheduled, First dose (after last modification) on Sat02/05/25 at 1845, For 3 doses, Maximum IV Push dose of 30 mg. If ordered IV Push, administer undiluted over 15 seconds. Common Side Effects include stomach upset, dizziness and increased bleeding risk. Maximum duration of therapy is 5 days. This drug may be automatically dose-adjusted by the Pharmacist according to the patient's renal function as approved by the [facility] Formulary Integration Committee (FIC)., Pharmacist will implement [facility] Renal Dose Adjustment Protocol unless otherwise specified: Implement Protocol 0025 (Given - Provider: Nat Yao RN)0553 (Given - Provider: Nat Yao RN) ketorolac (TORadol) injection 30 mg (COMPLETED)(Linked Group 1) 30 mg, IV Push, ONCE, On 02/06/25 at 1200, For 1 dose, Maximum IV Push dose of 30 mg. If ordered IV Push, administer undiluted over 15 seconds. Common Side Effects include stomach upset, dizziness and increased bleeding risk. Maximum duration of therapy is 5 days. This drug may be automatically dose-adjusted by the Pharmacist according to the patient's renal function as approved by the [facility] Formulary Integration Committee ([facility])., Pharmacist will implement [facility] Renal Dose Adjustment Protocol unless otherwise specified: Implement Protocol 1223 (Given - Provider: Arely Dimas RN) ketorolac (TORadol) injection 30 mg (CANCELED)(Linked Group 2) 30 mg, IV Push, Every 6 Hours Scheduled, First dose (after last reorder) on 02/06/25 at 1800, For 24 hours, Maximum IV Push dose of 30 mg. If ordered IV Push, administer undiluted over 15 seconds. Common Side Effects include stomach upset, dizziness and increased bleeding risk. Maximum duration of therapy is 5 days. This drug may be automatically dose-adjusted by the Pharmacist according to the patient's renal function as approved by the [facility] Formulary Integration Committee (FIC)., Pharmacist will implement [facility] Renal Dose Adjustment Protocol unless otherwise specified: Implement Protocol 1850 (Refused - Provider: Arely Dimas RN) 0027 (Given - Provider: Carolyn Fajardo RN)0558 (Given - Provider: Carolyn Fajardo RN) ketorolac (TORadol) injection 30 mg (COMPLETED) 30 mg, IV Push, Every 6 Hours Scheduled, First dose (after last modification) on 02/07/25 at 1200, For 1 day, Maximum IV Push dose of 30 mg. If ordered IV Push, administer undiluted over 15 seconds. Common Side Effects include stomach upset, dizziness and increased bleeding risk. Maximum duration of therapy is 5 days. This drug may be automatically dose-adjusted by the Pharmacist according to the patient's renal function as approved by the [facility] Formulary Integration Committee (FIC)., Pharmacist will implement [facility] Renal Dose Adjustment Protocol unless otherwise specified: Implement Protocol 1440 (Given - Provider: Arely Dimas RN)2017 (Given - Provider: Carolyn Fajardo RN) 015 (Given - Provider: Carolyn Fajardo RN)0845 (Given - Provider: Shellie Marie RN) lidocaine uro-jet (XYLOCAINE) 2 % jelly 11 mL 11 mL, Other, 3 TIMES DAILY, First dose (after last modification) on Sat02/06/25 at 1400, Inna urethrally 1500 (Given - Provider: Arely Dimas RN)2028 (Given - Provider: Carolyn Fajardo RN - Comment: self administered) 1116 (Given - Provider: Arely Dimas RN)182 (Given - Provider: Arely Dimas RN)2023 (Given - Provider: Carolyn Fajardo RN) 0846 (Refused - Provider: Shelile Marie, RN)1400 (Refused - Provider: Shellie Marie, RN) magnesium sulfate in water 2 gram/50 mL (4 %) (IVPB) 2 g (COMPLETED) 2 g, Intravenous, Administer over 60 Minutes, ONCE, On Sat02/08/25 at 0815, For 1 dose, Magnesium Level 1.4-1.6 mg/dl AND CrCl >/= 30 mL/min: Replete with Magnesium sulfate 2g IV x 1 dose. 0859 (New Bag - Provider: Shellie Marie, YOLANDA) methIMAzole (TAPAZOLE) tablet 15 mg 15 mg, Oral, 2 Times Daily Scheduled, First dose (after last modification) on Sat02/05/25 at 2100 1000 (Given - Provider: Arely Dimas RN)2021 (Given - Provider: Carolyn Fajardo RN) 111 (Given - Provider: Arely Dimas RN)2017 (Given - Provider: Carolyn Fajardo RN) 0843 (Given - Provider: Shellie Marie, YOLANDA) multivitamin with folic acid (THERAGRAN) tablet 1 tablet 1 tablet, Oral, Daily, First dose on Sat02/01/25 at 0900 1000 (Given - Provider: Arely Dimas RN) 1115 (Given - Provider: Arely Dimas RN) 0843 (Given - Provider: Shellie Marie, YOLANDA) oxybutynin (DITROPAN) immediate release tablet 5 mg 5 mg, Oral, 3 Times Daily Scheduled, First dose on Sat02/05/25 at 2100 1000 (Given - Provider: Arely Dimas RN)1500 (Given - Provider: Arely Dimas RN)2021 (Given - Provider: Carolyn Fajardo RN) 1115 (Given - Provider: Arely Dimas, YOLANDA)1603 (Given - Provider: Arely Dimas RN)2019 (Given - Provider: Carolyn Fajardo RN) 0843 (Given - Provider: Shellie Marie, YOLANDA)1421 (Given - Provider: Shellie Marie, RN) polyethylene glycol (MIRALAX) packet 17 g (CANCELED) 17 g, Oral, 2 Times Daily Scheduled, First dose (after last modification) on Sat02/05/25 at 2100, Common Side Effects: Diarrhea, discomfort, cramps. 1000 (Given - Provider: Arely Dimas RN) polyethylene glycol (MIRALAX) packet 34 g 34 g, Oral, 2 Times Daily Scheduled, First dose (after last modification) on 02/06/25 at 2100, Common Side Effects: Diarrhea, discomfort, cramps. 2021 (Given - Provider: Carolyn Fajardo RN) 1121 (Refused - Provider: Arely Dimas RN)2018 (Given - Provider: Carolyn Fajardo RN) 0844 (Refused - Provider: Shellie Marie, YOLANDA) propranoloL (INDERAL) Immediate Release tablet 20 mg 20 mg, Oral, EVERY 8 HOURS, First dose (after last modification) on 02/06/25 at 2030, Hold for SBP < 90 mm Hg or HR < 50 BPM Common Side Effects: Fatigue, dizziness, hypotension, bradycardia. 2021 (Given - Provider: Carolyn Fajardo RN) 0354 (Given - Provider: Carolyn Fajardo RN)1440 (Given - Provider: Arely Dimas RN)2312 (Given - Provider: Carolyn Fajardo RN) 0842 (Given - Provider: Shellie Marie, RN)1421 (Given - Provider: Shellie Marie, RN) senna (SENOKOT) tablet 8.6 mg 8.6 mg (1 tablet), Oral, Daily, First dose (after last modification) on 02/06/25 at 1415, Common Side Effects: Diarrhea, discomfort, cramps. 1500 (Given - Provider: Arely Dimas RN) 1116 (Refused - Provider: Arely Dimas RN) 0844 (Refused - Provider: Shellie Marie, RN) tamsulosin (FLOMAX) 24 hr capsule 0.4 mg 0.4 mg, Oral, Nightly, First dose on 02/01/25 at 2100, Swallow whole or capsule may be opened and contents sprinkled on small amount of soft food (i.e. pudding, applesauce) and administered immediately (do not store or chew). Do not crush pellets if given via feeding tube. Avoid administration via J-tube due to risk of clogging., Reason for Use (RFU): Ureteral Calculi Expulsion 2021 (Given - Provider: Carolyn Fajardo RN) 2023 (Given - Provider: Carolyn Fajardo RN) traZODone (DESYREL) tablet 25 mg 25 mg, Oral, Nightly, First dose on 02/06/25 at 2100, Common Side Effects: Sedation, headache, dizziness, nausea. 2021 (Given - Provider: Carolyn Fajardo RN) 2017 (Given - Provider: Carolyn Fajardo RN) PRN Medication Order 02/06/2025 02/07/2025 02/08/2025 bisacodyL (DULCOLAX) suppository 10 mg 10 mg, Rectal, DAILY PRN, constipation, Starting on 02/06/25 at 1401, Common Side Effects: Diarrhea, discomfort, cramps. diazePAM (VALIUM) tablet 2 mg 2 mg, Oral, 2 TIMES DAILY PRN, anxiety, muscle spasms, for renal colic, Starting on 02/06/25 at 1359, Common Side Effects: Confusion, dizziness, drowsiness, mood changes. 0354 (Given - Provider: Carolyn Fajardo RN)1603 (Given - Provider: Arely Dimas, YOLANDA) 0414 (Given - Provider: Carolyn Fajardo, YOLANDA) HYDROmorphone (DILAUDID) injection 1 mg (CANCELED) 1 mg, IV Push, EVERY 6 HOURS PRN, breakthrough Pain (PIS 4-10), If patient has inadequate response within 30 minutes of subcutaneous/IV or 1 hour of PO prn pain medication administration., Starting on Sat02/02/25 at 1544, For 7 days, If ordered IV Push, administer undiluted at a rate of 0.5mg over 1 minute. If ordered SC, administer over a few seconds. For SC dose volumes greater than 1.5 mL, use multiple injection sites. RECOMMENDED monitoring for Opiate Na ve patients includes BP and Respiratory Monitoring baseline and with pain and level of sedation re-assessment. No BP or Respiratory Monitoring recommended for Maintenance Opiate use patients. RECOMMENDED monitoring for all patients includes Level of Sedation. 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 If patient cannot tolerate PO., Pharmacist will implement Pharmacist IV to Enteral Conversion Protocol unless otherwise specified: Implement Protocol, Pharmacist will implement [facility] Renal Dose Adjustment Protocol unless otherwise specified: Implement Protocol 0557 (Given - Provider: Carolyn Fajardo RN)2017 (Given - Provider: Carolyn Fajardo RN) 041 (Given - Provider: Carolyn Fajardo RN) metoclopramide HCl (REGLAN) tablet 10 mg(Linked Group 3) 10 mg, Oral, EVERY 6 HOURS PRN, nausea or vomiting, Starting on Sat02/02/25 at 1821, First line therapy. , Pharmacist will implement [facility] Renal Dose Adjustment Protocol unless otherwise specified: Implement Protocol 0557 (See Alternative - Provider: Carolyn Fajardo RN)2017 (See Alternative - Provider: Carolyn Fajardo RN) 0413 (See Alternative - Provider: Carolyn Fajardo RN) ondansetron (PF) (ZOFRAN) injection 4 mg 4 mg, IV Push, EVERY 6 HOURS PRN, nausea or vomiting, Starting on Sat02/05/25 at 1849, Maximum IV Push dose of 16 mg. If ordered IV Push, administer undiluted over 2 minutes. Common side effects include: lightheaded, stomach upset, and headache. Irritant 0612 (Given - Provider: Nat Yao RN) 0418 (Given - Provider: Carolyn Fajardo RN)0938 (Given - Provider: Arely Dimas RN)2305 (Given - Provider: Carolyn Fajardo RN) oxyCODONE (ROXICODONE) Immediate Release tablet 10 mg(Linked Group 4) 10 mg, Oral, EVERY 4 HOURS PRN, severe Pain (PIS 7-10), Starting on Sat02/02/25 at 1543, For 7 days, Common Side Effects: Confusion, nausea, vomiting, drowsiness, constipation, breathing problems. 0043 (Given - Provider: aNt Yao RN)0413 (Given - Provider: Nat Yao RN) 0415 (See Alternative - Provider: Carolyn Fajardo RN) oxyCODONE (ROXICODONE) Immediate Release tablet 5 mg(Linked Group 4) 5 mg, Oral, EVERY 4 HOURS PRN, moderate Pain (PIS 4-6), for adult patients may also give for higher pain score per patient preference, Starting on Sat02/02/25 at 1543, For 7 days, Common Side Effects: Confusion, nausea, vomiting, drowsiness, constipation, breathing problems. 0043 (See Alternative - Provider: Nat Yao RN)0413 (See Alternative - Provider: Nat Yao RN) 0415 (Given - Provider: Carolyn Fajardo RN) Linked Groups Order Group 1: ketorolac (TORadol) injection 30 mg (COMPLETED)Jump to med 30 mg, IV Push, ONCE, On 02/06/25 at 1200, For 1 dose, Maximum IV Push dose of 30 mg. If ordered IV Push, administer undiluted over 15 seconds. Common Side Effects include stomach upset, dizziness and increased bleeding risk. Maximum duration of therapy is 5 days. This drug may be automatically dose-adjusted by the Pharmacist according to the patient's renal function as approved by the [facility] Formulary Integration Committee (FIC)., Pharmacist will implement [facility] Renal Dose Adjustment Protocol unless otherwise specified: Implement Protocol Followed by ketorolac (TORadol) injection 15 mg (COMPLETED)Jump to med 15 mg, IV Push, ONCE, On 02/06/25 at 1200, For 1 dose, Maximum IV Push dose of 30 mg. If ordered IV Push, administer undiluted over 15 seconds. Common Side Effects include stomach upset, dizziness and increased bleeding risk. Maximum duration of therapy is 5 days. This drug may be automatically dose-adjusted by the Pharmacist according to the patient's renal function as approved by the [facility] Formulary Integration Committee (FIC)., Pharmacist will implement [facility] Renal Dose Adjustment Protocol unless otherwise specified: Implement Protocol Group 2: ketorolac (TORadol) injection 30 mg (CANCELED)Jump to med 30 mg, IV Push, Every 6 Hours Scheduled, First dose (after last reorder) on 02/06/25 at 1800, For 24 hours, Maximum IV Push dose of 30 mg. If ordered IV Push, administer undiluted over 15 seconds. Common Side Effects include stomach upset, dizziness and increased bleeding risk. Maximum duration of therapy is 5 days. This drug may be automatically dose-adjusted by the Pharmacist according to the patient's renal function as approved by the [facility] Formulary Integration Committee (FIC)., Pharmacist will implement [facility] Renal Dose Adjustment Protocol unless otherwise specified: Implement Protocol Followed by ketorolac (TORadol) injection 15 mg (CANCELED) 15 mg, IV Push, ONCE, On 02/07/25 at 1800, For 1 dose, Maximum IV Push dose of 30 mg. If ordered IV Push, administer undiluted over 15 seconds. Common Side Effects include stomach upset, dizziness and increased bleeding risk. Maximum duration of therapy is 5 days. This drug may be automatically dose-adjusted by the Pharmacist according to the patient's renal function as approved by the [facility] Formulary Integration Committee (FIC)., Pharmacist will implement [facility] Renal Dose Adjustment Protocol unless otherwise specified: Implement Protocol Group 3: metoclopramide HCl (REGLAN) tablet 10 mgJump to med 10 mg, Oral, EVERY 6 HOURS PRN, nausea or vomiting, Starting on Sat02/02/25 at 1821, First line therapy. , Pharmacist will implement [facility] Renal Dose Adjustment Protocol unless otherwise specified: Implement Protocol Or metoclopramide (REGLAN) injection 10 mgJump to med 10 mg, IV Push, EVERY 6 HOURS PRN, nausea or vomiting, Starting on Sat02/02/25 at 1821, First line therapy. If patient cannot tolerate PO., Pharmacist will implement Pharmacist IV to Enteral Conversion Protocol unless otherwise specified: Implement Protocol, Pharmacist will implement [facility] Renal Dose Adjustment Protocol unless otherwise specified: Implement Protocol Group 4: oxyCODONE (ROXICODONE) Immediate Release tablet 5 mgJump to med 5 mg, Oral, EVERY 4 HOURS PRN, moderate Pain (PIS 4-6), for adult patients may also give for higher pain score per patient preference, Starting on Sat02/02/25 at 1543, For 7 days, Common Side Effects: Confusion, nausea, vomiting, drowsiness, constipation, breathing problems. Or oxyCODONE (ROXICODONE) Immediate Release tablet 10 mgJump to med 10 mg, Oral, EVERY 4 HOURS PRN, severe Pain (PIS 7-10), Starting on Sat02/02/25 at 1543, For 7 days, Common Side Effects: Confusion, nausea, vomiting, drowsiness, constipation, breathing problems. 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
--- NOTE | 2025-02-10 13:47 | A.OFFVIS_ITS ---
Vital Signs 02/10/25 14:02 Height 5 ft 6 in Weight 161 lb 6.054 oz BMI 26.0 BP 115/62 Blood Pressure Location Lt brachial Position Sitting Respiration 16 Pulse 98 Pulse Source Pulse Oximeter Pulse Oximetry (%) 97 Intake Visit Reasons: Thyrotoxicosis Intake Note: NEW Patient presents today to establish care for Thyrotoxicosis: No acute complaints reported at this time. Pharmacy? Employee Benefits Coordinator Required: No Accompanied by: Self / Same As Patient Allergies ceftriaxone Allergy (Verified 02/10/25 13:52) Hives Iodinated Contrast Media (Contrast Dye) Allergy (Verified 02/10/25 13:52) Hives Medication List - Last Reconciled 02/10/25 by Yeset Chato Cruz MD acetaminophen (Tylenol Extra Strength) 1,000 mg (2 x 500 mg) PO Q8H PRN ibuprofen 600 mg PO Q6H metoclopramide HCl 5 mg PO DAILY PRN oxycodone mg PO tamsulosin 0.4 mg PO DAILY HPI Comments Details: 39 yo female with PMH of Asthma and kidney stone, seen in office for initial evaluation of hyperthyroidism. HISTORY OF PRESENT ILLNESS: Onset and duration of symptoms: - Symptoms have worsened over the past 1-2 months. - Hospitalized for two weeks in January. Nature and severity of symptoms: - Severe anxiety and tremors affecting daily activities. - Heart palpitations persist despite current treatment. Precipitating or alleviating factors: - No specific alleviating factors noted. Associated symptoms: - Weight loss of 16 pounds over a two-week period. - Large mass noticed on the chest, biopsy deferred due to high thyroid levels. Recent illnesses, stressors, or exposures: - Recent hospitalization at [facility]. ROS: - Shaking - Insomnia - Heat flashes - Vomiting - Forgetfulness - Difficulty swallowing - Anxiety - Shortness of breath - Heart palpitations Current and prior treatments: - Methimazole initially prescribed; dosage unspecified. - Propranolol 20 mg every eight hours. - PTU was initially used but discontinued. - Recently started on methimazole 5 mg three times daily from February 08. Physical exam: General: Well appearing. NAD. Neck/Thyroid: Thyroid enlarged, no nodules. Eyes: No conjunctival injection, not lid lag or proptosis CV: RRR, no murmur. No edema. Resp:Lungs clear to auscultation bilaterally Abdomen: Soft, nontender. nondistended Extremities/Neuro: Mild tremor of outstretched hands Laboratory Tests 12/25/24 01/20/25 14:40 13:03 AST 22 ALT 21 Alkaline Phosphatase 79 TSH < 0.01 L < 0.01 L Free T4 1.72 3.11 H Thyroid Stim Immunoglob 175 H PFSH Medical History (Updated 01/21/25 @ 00:00 by Jessica Carrion) Asthma Kidney stone Medullary sponge kidney Surgical History (Updated 02/10/25 @ 14:02 by ELIEZER Wood) H/O right shoulder surgery Social History Household Members: Spouse and Children Housing: House Alcohol intake: never Patient Tobacco Use Status: Never used Tobacco e-Cigarette/Vaping Use: Never Used Current occupational status: employed 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 She was recently admitted to the hospital with thyroid storm. Currebtly symptoms are more controlled but she still have residual symptoms, specially tachycardia and hands shaking. Graves is an autoimmune disease characterized by the production of TSH receptor antibodies, leading to unregulated thyroid hormone production. The natural history includes periods of remission and relapse. With antithyroid drug therapy, about 30-50% of patients may achieve remission after 18-24 months, but recurrences possible especially with younger patients. Definitive therapy (radioactive iodine ablation or thyroidectomy) is considered for those with persistent or relapsing disease, medication intolerance, or patient preference. Methimazole may cause rash, gastrointestinal upset, arthralgias, and, rarely, agranulocytosis or hepatotoxicity. Advise patients to report fever, sore throat, or jaundice immediately. Plan Symptom Control: - Adjust methimazole to 10 mg twice daily. - Increase propranolol to 40 mg three times daily for better symptom control. - She was made aware of MMI side effects. Definitive Therapy: - Continue current treatment for at least 1.5 years before considering definitive therapy options like surgery or radioactive iodine. Monitoring: - Repeat labs (TSH, free T4) in 6 weeks. Patient Education: - Discussed the nature of Graves' disease and treatment plan. - Explained potential for remission and the possibility of requiring lifelong treatment. Plan 45 minutes spent reviewing previous records, labs, imaging, education and documenting in the chart Orders: Orders TSH reflex Free T4 6 Weeks E05.90 - Thyrotoxicosis, unspecified without thyrotoxic crisis or storm Medications: New propranolol 40 mg PO BID 90 tabs 3RF E05.90 - Thyrotoxicosis, unspecified without thyrotoxic crisis or storm methimazole 10 mg PO DAILY 60 tabs 3RF E05.90 - Thyrotoxicosis, unspecified wi thout thyrotoxic crisis or storm Patient Instructions: 1. Take methimazole as prescribed: 10 mg twice daily. 2. Take propranolol 40 mg three times daily. 3. Use Valium as needed for anxiety, following prescribed guidelines. 4. Monitor symptoms and note any changes or new symptoms. 5. Contact the clinic immediately if symptoms worsen or new symptoms develop. 6. Attend the follow-up appointment in 6 weeks and complete the required lab tests prior to the visit. 7. Consider lifestyle changes, such as smoking cessation, to aid treatment. 8. Bring a list of any questions or concerns to the next appointment for discussion. Methimazole: Patient Instructions on Side Effects What is Methimazole? Methimazole is a medication used to treat hyperthyroidism (overactive thyroid). Possible Side Effects: Most people tolerate methimazole well, but side effects can occur. It is important to recognize them early. Common Side Effects: * Mild rash or itching * Upset stomach, nausea, or mild abdominal pain * Headache * Joint or muscle aches * Changes in taste Serious Side Effects (Call the office or seek care immediately): * Fever, sore throat, or mouth sores:?These may be signs of a low white blood cell count (agranulocytosis), which can be serious. * Unusual bruising or bleeding * Yellowing of the skin or eyes (jaundice), dark urine, or severe fatigue:?These may indicate liver problems. * Severe skin rash or blistering * Shortness of breath or chest pain What to Do: * If you develop a fever (over 100.4?F/38?C), sore throat, or mouth sores, stop taking methimazole and contact the office immediately. * Report any signs of liver problems or unusual bruising/bleeding. * For mild side effects (nausea, mild rash), let your provider know at your next visit. Routine Monitoring: * You will need regular blood tests to monitor your blood counts and liver function while on methimazole. When to Seek Emergency Care: * Difficulty breathing, swelling of the face or throat, or severe allergic reaction (anaphylaxis). Contact Information: If you have any questions or experience any of the above symptoms, contact the office at . Coding Level of Care Code New Pt Level 4 (61270) Complex visit Add On G2211 Diagnoses Hyperthyroidism E05.90
[2025-02-10 14:02] VITALS: BP 115/62; PULSE 98; RESP 16; O2SAT 97; BMI 26.0
--- OUTSIDE RECORDS SUMMARY | 2025-02-10 16:23 | XMS_ITS | Encounter Summary ---
Author Organization [facility] Address [address] [address] Phone Care Team Providers Care Motion Picture Equipment Machinist Name Role Phone Pcp, Not Required Primary Care Provider Unavaila ble Encounter Details Date Type Department Care Team (Late st Contact Info) Description 02/22/2024 Procedure Pass [facility], Ct Scan - [address] [address] Social History Tobacco Use Types Packs/Day Years [...] 02/22/2024 1:48 AM Teresa Hernandez RN * [place] Suicide Severity Rating Scale (Screener/Recent Self-Report) Question [...] Care Team (Late st Contact Info) Description 02/12/2025 11:30 AM EST Office Visit [facility] [address] [place] [address] Nikita Mireles PA-C [address] [place] [address] [place] [address] Karyna Aguirre, PT 8 [place] [address] 02/17/2025 10:00 AM EST Office Visit [facility] [address] [place] [address] Nikita Mireles PA-C [address] [place] [address] [place] [address] Karyna Aguirre, PT 8 [place] [address] 02/19/2025 1:00 PM EST Office Visit [facility] [address] [place] [address] Nikita Mireles PA-C [address] [place] [address] [place] [address] Karyna Aguirre, PT 8 [place] [address] 02/22/2025 10:00 AM EST Office Visit [facility] [address] [place] [address] Nikita Mireles PA-C [address] [place] [address] [place] [address] Karyna Aguirre, PT 8 [place] [address] 02/24/2025 10:45 AM EST Office Visit [facility] [address] [place] [address] Nikita Mireles PA-C [address] [place] [address] [place] [address] Karyna Aguirre, PT 8 [place] [address] 03/02/2025 2:00 PM EST Office Visit [facility] Orthopedics & Sports Medicine [address] [place] [address] [place] [address] Nikita Mireles PA-C [address] [place] [address] [place] [address] documented as of this encounter Visit Diagnoses Not on filedocumented in this encounter Additional Health Concerns Infection Onset Date Last Indicated Resolved Time CoV-Risk 06/18/2024 06/18/2024 06/29/2024 1:23 AM EDT documented as of this encounter Care Teams Motion Picture Equipment Machinist Relationship Specialty Start Date End Date Pcp, Not Required [address] [place] [id number] PCP - General 11/09/15 documented as of this encounter Additional Source Comments The information contained in this document represents components of the legal health record. It is not the complete legal health record.[facility]
--- OUTSIDE RECORDS SUMMARY | 2025-02-10 16:23 | XMS_ITS | Encounter Summary ---
Author Organization [facility] Address [address] [address] Phone Care Team Providers Care Rental Sales Agent Name Role Phone Pcp, Not Required Primary Care Provider Unavaila ble Encounter Details Date Type Department Care Team (Late st Contact Info) Description 11/22/2023 Procedure Pass [facility], Ct Scan - [address] [address] Social History Tobacco Use Types Packs/Day Years [...] 10:32 PM EDT Franchesca Parikh RN * [place] Suicide Severity Rating Scale (Screener/Recent Self-Report) Question [...] Description 02/12/2025 11:30 AM EST Office Visit [address] [place] [address] Nikita Mireles PA-C [address] [place] [address] [place] [address] Karyna Aguirre, PT 8 [place] [address] 02/17/2025 10:00 AM EST Office Visit [address] [place] [address] Nikita Mireles PA-C [address] [place] [address] [place] [address] [email or web address] Karyna Aguirre, PT 8 [place] [address] 02/19/2025 1:00 PM EST Office Visit [address] [place] [place] [address] Nikita Mireles PA-C [address] [place] [address] [place] [address] Karyna Aguirre, PT 8 [place] [address] 02/22/2025 10:00 AM EST Office Visit [address] [place] [address] Nikita Mireles PA-C [address] [place] [address] [place] [address] Karyna Aguirre, PT 8 [place] [address] 02/24/2025 10:45 AM EST Office Visit [address] [place] [address] Nikita Mireles PA-C [address] [place] [address] [place] [address] Karyna Aguirre, PT 8 [place] [address] 03/02/2025 2:00 PM EST Office Visit [facility] Orthopedics & Sports Medicine [address] [place] [address] [place] [address] Nikita Mireles PA-C [address] [place] [address] [place] [address] documented as of this encounter Visit Diagnoses Not on filedocumented in this encounter Additional Health Concerns Infection Onset Date Last Indicated Resolved Time CoV-Risk 06/18/2024 06/18/2024 06/29/2024 1:23 AM EDT documented as of this encounter Care Teams Rental Sales Agent Relationship Specialty Start Date End Date Pcp, Not Required [address] [place] [phone] PCP - General 11/09/15 documented as of this encounter Additional Source Comments The information contained in this document represents components of the legal health record. It is not the complete legal health record.[facility]
--- OUTSIDE RECORDS SUMMARY | 2025-02-10 16:23 | XMS_ITS | Encounter Summary ---
Author Organization [facility] Address [address] [place] [address] Phone Care Team Providers Care Firestop/Containment Worker Name Role Phone Pcp, Not Required Primary Care Provider Unavaila ble Encounter Details Date Type Department Care Team (Late st Contact Info) Description 09/17/2023 Procedure Pass [facility], [address] [place] [address] Social History Tobacco Use Types Packs/Day Years [...] Description 02/12/2025 11:30 AM EST Office Visit [facility] Rehabilitation Services [address] [place] [address] Nikita Mireles PA-C [address] [place] [address] [place] [address] Karyna Aguirre, PT 8 [place] [address] 02/17/2025 10:00 AM EST Office Visit [facility] [address] [place] [address] Nikita Mireles PA-C [address] [place] [address] [place] [address] Karyna Aguirre, PT 8 [place] [address] 02/19/2025 1:00 PM EST Office Visit [facility] [address] [place] [address] Nikita Mireles PA-C [address] [place] [address] [place] [address] Karyna Aguirre, PT 8 [place] [address] 02/22/2025 10:00 AM EST Office Visit [facility] [address] [place] [address] Nikita Mireles PA-C [address] [place] [address] [place] [address] Karyna Aguirre, PT 8 [place] [address] 02/24/2025 10:45 AM EST Office Visit [address] [place] [address] Nikita Mireles PA-C [address] [place] [address] [place] [address] [email or web address] Karyna Aguirre, PT 8 [place] [address] 03/02/2025 2:00 PM EST Office Visit [facility] Orthopedics & Sports Medicine [address] [place] [address] [place] [address] Nikita Mireles PA-C [address] [place] [address] [place] [address] [email or web address] documented as of this encounter Visit Diagnoses Not on filedocumented in this encounter Additional Health Concerns Infection Onset Date Last Indicated Resolved Time CoV-Risk 06/18/2024 06/18/2024 06/29/2024 1:23 AM EDT documented as of this encounter Care Teams Firestop/Containment Worker Relationship Specialty Start Date End Date Pcp, Not Required [address] [place] [address] PCP - General 11/09/15 documented as of this encounter Additional Source Comments The information contained in this document represents components of the legal health record. It is not the complete legal health record.[facility]
--- OUTSIDE RECORDS SUMMARY | 2025-02-10 16:23 | XMS_ITS | Encounter Summary ---
Author Organization [facility] Address [address] [facility] [address] [place] [address] Phone Care Team Providers Care Digital Publishing Specialist Name Role Phone Pcp, Not Required Primary Care Provider Unavaila ble Reason for Visit * Reason Onset Date Comments Appointment 02/10/2025 Encounter Details Date Type Department Care Team (Late st Contact Info) Description 02/10/2025 Telephone [facility] Rehabilitation Services 8 [place] [address] Karyna Aguirre, PT 8 [place] [address] [email or web address] Appointment Social History Tobacco Use Types Packs/Day [...] Progress Notes * Karyna Aguirre, PT - 02/10/2025 10:33 AM EST Called and LVM yesterday to confirm today's appointment with no call back received. Pt missed today's appointment, called to follow up with pt and pt reached. Pt states she was just discharged from the hospital earlier today after prolonged hospitalization secondary to complications from kidney stones. Pt has not been seen in PT since 01/18/25 due to pt's illness. Reminded pt of appointment with orthopedics this afternoon, encouraged pt to call their office to reschedule should she not be able to make it in today and to provide an update on her status. Pt confirmed she would be at PT appointment on Monday 02/12 at 11:30am, encouraged pt to contact our office should she decide she's unable tomake it in. Karyna Aguir[place], [place] [id number] documented in this encounter Plan of Treatment Upcoming Encounters Date Type Department Care Team (Late st Contact Info) Description 02/12/2025 11:30 AM EST Office Visit [address] [place] [address] Nikita Mireles PA-C [address] [place] [address] [place] [address] [email or web address] Karyna Aguirre, PT 8 [place] [address] [email or web address] 02/17/2025 10:00 AM EST Office Visit [address] [place] [address] Nikita Mireles PA-C [address] [place] [address] [place] [address] [email or web address] Karyna Aguirre, PT 8 [place] [address] [email or web address] 02/19/2025 1:00 PM EST Office Visit [address] [place] [address] Nikita Mireles PA-C [address] [place] [address] [place] [address] [email or web address] Karyna Aguirre, PT 8 [place] [address] [email or web address] 02/22/2025 10:00 AM EST Office Visit [facility] [address] [place] [address] Nikita Mireles PA-C [address] [place] [address] [place] [address] Karyna Aguirre, PT 8 [place] [address] 02/24/2025 10:45 AM EST Office Visit [facility] [address] [place] [address] Nikita Mireles PA-C [address] [place] [address] [place] [address] Karyna Aguirre, PT 8 [place] [address] 03/02/2025 2:00 PM EST Office Visit [facility] Orthopedics & Sports Medicine [address] [place] [address] [place] [address] Nikita Mireles PA-C [address] [place] [address] [place] [address] documented as of this encounter Visit Diagnoses Not on filedocumented in this encounter Care Teams Digital Publishing Specialist Relationship Specialty Start Date End Date Pcp, Not Required [address] [place] [phone] PCP - General 11/09/15 documented as of this encounter Additional Source Comments The information contained in this document represents components of the legal health record. It is not the complete legal health record.[facility]
--- OUTSIDE RECORDS SUMMARY | 2025-02-10 16:23 | XMS_ITS | Encounter Summary ---
Author Organization [facility] Address [address] [place] [address] Phone Care Team Providers Care Ethanol Quality Leader Name Role Phone Pcp, Not Required Primary Care Provider Unavaila ble Encounter Details Date Type Department Care Team (Late st Contact Info) Description 10/08/2024 Procedure Pass [facility], Ct Scan - [address] [address] Social History Tobacco Use Types Packs/Day Years [...] 12:28 PM EDT Ana Gonzalez, YOLANDA * [place] Suicide Severity Rating Scale (Screener/Recent Self-Report) Question [...] Description 02/12/2025 11:30 AM EST Office Visit [facility] Rehabilitation Services [address] [place] [address] Nikita Mireles PA-C [address] [place] [address] [place] [address] Karyna Aguirre, PT 8 [place] [address] 02/17/2025 10:00 AM EST Office Visit [facility] [address] [place] [address] Nikita Mireles PA-C [address] [place] [address] [place] [id number] Karyna Aguirre, PT 8 [place] [address] 02/19/2025 1:00 PM EST Office Visit [address] [address] Nikita Mireles PA-C [address] [place] [address] [place] [id number] Karyna Aguirre, PT 8 [place] [address] 02/22/2025 10:00 AM EST Office Visit [address] [place] [address] Nikita Mireles PA-C [address] [place] [address] [place] [id number] Karyna Aguirre, PT 8 [place] [address] 02/24/2025 10:45 AM EST Office Visit [address] [place] [address] Nikita Mireles PA-C [address] [place] [address] [place] [address] [email or web address] Karyna Aguirre, PT 8 [place] [address] 03/02/2025 2:00 PM EST Office Visit [facility] Orthopedics & Sports Medicine [address] [place] [address] [place] [address] Nikita Mireles PA-C [address] [place] [address] [place] [address] [email or web address] documented as of this encounter Visit Diagnoses Not on filedocumented in this encounter Care Teams Ethanol Quality Leader Relationship Specialty Start Date End Date Pcp, Not Required [address] [place] [phone] PCP - General 11/09/15 documented as of this encounter Additional Source Comments The information contained in this document represents components of the legal health record. It is not the complete legal health record.[facility]
--- OUTSIDE RECORDS SUMMARY | 2025-02-10 16:23 | XMS_ITS | Encounter Summary ---
Author Organization [facility] Address [address] [employer] [facility] [address] [place] [address] Phone Care Team Providers Care Medical Photographer Name Role Phone Pcp, Not Required Primary Care Provider Unavaila ble Encounter Details Date Type Department Care Team ([facility] st Contact Info) Description 11/12/2024 Procedure Pass [place] Admitting Dept - Virtual Department [address] [place] [address] Social History Tobacco Use Types Packs/Day Years [...] Description 02/12/2025 11:30 AM EST Office Visit [facility] [address] [place] [address] Nikita Mireles PA-C [address] [place] [address] [place] [address] Karyna Aguirre, PT 8 [place] [address] 02/17/2025 10:00 AM EST Office Visit [facility] [address] [place] [address] Nikita Mireles PA-C [address] [place] [address] [place] [address] Karyna Aguirre, PT 8 [place] [address] 02/19/2025 1:00 PM EST Office Visit [address] [place] [address] Nikita Mireles PA-C [address] [place] [address] [place] [address] Karyna Aguirre, PT 8 [place] [address] 02/22/2025 10:00 AM EST Office Visit [address] [address] Nikita Mireles PA-C [address] [place] [address] [place] [address] Karyna Aguirre, PT 8 [place] [address] 02/24/2025 10:45 AM EST Office Visit [address] [place] [address] Nikita Mireles PA-C [address] [place] [address] [place] [address] Karyna Aguirre, PT 8 [place] [address] 03/02/2025 2:00 PM EST Office Visit [facility] Orthopedics & Sports Medicine [address] [place] [address] [place] [address] Nikita Mireles PA-C [address] [place] [address] [place] [address] [email or web address] documented as of this encounter Visit Diagnoses Not on filedocumented in this encounter Care Teams Medical Photographer Relationship Specialty Start Date End Date Pcp, Not Required [address] [place] [phone] PCP - General 11/09/15 documented as of this encounter Additional Source Comments The information contained in this document represents components of the legal health record. It is not the complete legal health record.[facility]
--- OUTSIDE RECORDS SUMMARY | 2025-02-10 16:23 | XMS_ITS | Encounter Summary ---
Author Organization [facility] Address [address] [place] [phone] Phone Care Team Providers Care Cementer Machine Joiner Name Role Phone Pcp, Not Required Primary Care Provider Unavaila ble Encounter Details Date Type Department Care Team (Late st Contact Info) Description 08/08/2024 Procedure Pass [facility], Ct Scan - [address] [address] Social History Tobacco Use Types Packs/Day Years [...] 10:51 PM EDT Dallin Pretty RN * [place] Suicide Severity Rating Scale (Screener/Recent Self-Report) Question [...] Description 02/12/2025 11:30 AM EST Office Visit [facility] [address] [place] [address] Nikita Mireles PA-C [address] [place] [address] [place] [phone] [email or web address] Karyna Aguirre, PT [address] [place] [address] 02/17/2025 10:00 AM EST Office Visit [facility] [address] [place] [address] Nikita Mireles PA-C [address] [place] [address] [place] [address] [email or web address] Karyna Aguirre, PT [address] [place] [address] 02/19/2025 1:00 PM EST Office Visit [facility] [address] [place] [address] Nikita Mireles PA-C [address] [place] [address] [place] [address] Karyna Aguirre, PT [address] [place] [address] 02/22/2025 10:00 AM EST Office Visit [facility] [address] [place] [address] Nikita Mireles PA-C [address] [place] [address] [place] [address] Karyna Aguirre, PT [address] [place] [address] 02/24/2025 10:45 AM EST Office Visit [facility] [address] [place] [address] Nikita Mireles PA-C [address] [place] [address] [place] [address] Karyna Aguirre, PT [address] [place] [address] 03/02/2025 2:00 PM EST Office Visit [facility] [address] [place] [address] [place] [address] Nikita Mireles PA-C [address] [place] [address] [place] [address] documented as of this encounter Visit Diagnoses Not on filedocumented in this encounter Care Teams Cementer Machine Joiner Relationship Specialty Start Date End Date Pcp, Not Required [address] [place] [address] PCP - General 11/09/15 documented as of this encounter Additional Source Comments The information contained in this document represents components of the legal health record. It is not the complete legal health record.[facility]
--- OUTSIDE RECORDS SUMMARY | 2025-02-10 16:23 | XMS_ITS | Clinical Summary ---
Author Organization [address] Address [address] [place] [id number] Phone Care Team Providers Care Teasel Gig Operator Name Role Phone [facility] Primary Care Provider [phone] Allergies Active Allergy Reactions Criticality Noted Date Comments Ceftriaxone Hives High 02/02/2025 6 mo ago at OSH per pt Iodinated Contrast Media Hives High 01/31/2025 Confirmed per patient, >1 yr ago Medications multivitamin (ONE DAILY MULTIVITAMIN) tablet Take 1 tablet by mouth daily. Active ibuprofen (ADVIL,MOTRIN) 800 mg tablet Take 1 tablet (800 mg total) by mouth every 6 (six) hours as needed for pain. 56 tablet 5 02/23/20 25 Active methIMAzole (TAPAZOLE) 5 mg tablet Take 3 tablets (15 mg total) by mouth 2 (two) times daily. 180 tablet 5 Active oxybutynin (DITROPAN) 5 mg immediate release tablet Take 1 tablet (5 mg total) by mouth 3 (three) times daily. 90 tablet 5 Active oxyCODONE (ROXICODONE) 5 mg Immediate Release tablet Take 1 tablet (5 mg total) by mouth every 8 (eight) hours as needed for pain for up to 5 days. 15 tablet 5 02/14/20 25 Active polyethylene glycol (MIRALAX) 17 gram packet Take 1 packet (17 g total) by mouth 2 (two) times daily for 5 days. Mix in 8 ounces of water, juice, soda, coffee or tea prior to taking. 10 packet 5 02/14/20 25 Active tamsulosin (FLOMAX) 0.4 mg 24 hr capsule Take 1 capsule (0.4 mg total) by mouth nightly. 30 capsule 5 Active diazePAM (VALIUM) 2 mg tablet Take 1 tablet (2 mg total) by mouth daily as needed (renal stent colic, muscle spasm). 28 tablet 5 03/08/20 25 Active propranoloL (INDERAL) 20 mg Immediate Release tablet Take 1 tablet (20 mg total) by mouth every 8 (eight) hours. 90 tablet 1 5 Active oxyCODONE (ROXICODONE) 10 mg Immediate Release tablet Take 1 tablet (10 mg total) by mouth every 4 (four) hours as needed for up to 3 days. 8 tablet 5 02/12/20 25 Active senna 8.6 mg tablet Take 1 tablet (8.6 mg total) by mouth nightly as needed for constipation. 30 tablet 3 5 Active metoclopramide HCl (REGLAN) 10 mg tablet Take 1 tablet (10 mg total) by mouth every 6 (six) hours as needed for nausea or vomiting for up to 10 days. 20 tablet 5 02/19/20 25 Active lidocaine uro-jet (XYLOCAINE) 2 % jelly 11 mLs by Other route 3 (three) times daily. 900 mL 1 5 Active acetaminophen (TYLENOL) 500 mg tablet Take 2 tablets (1,000 mg total) by mouth every 6 (six) hours as needed for pain. 30 tablet 11 5 03/25/19 26 Active ALPRAZolam (XANAX) 0.25 mg tablet Take 1 tablet (0.25 mg total) by mouth 3 (three) times daily as needed for anxiety. 02/09/20 25 Discontinu ed(Stop Taking at Discharge) propranoloL (INDERAL) 40 mg Immediate Release tablet Take 1 tablet (40 mg total) by mouth 3 (three) times daily. 02/09/20 Discontinu ed(Stop Taking at Discharge) propylthiouraci L (PTU) 50 mg tablet Take 2 tablets (100 mg total) by mouth 3 (three) times daily. 02/09/20 Discontinu ed(Stop Taking at Discharge) Active Problems Problem Noted Date Diagnosed Date Graves disease 02/01/2025 Encounters Date Type Department Care Team Description 02/10/2025 Patient Outreach [facility] Call Center [address] [place] [address] Alicia Atkins RN Hospital Discharge Follow Up 02/08/2025 Telephone [place] [address] Quentin Bartlett MD Appointment 02/02/2025 12:19 PM EST Anesthesia Event Perioperative Services [facility] [address] [place] [address] Panchito Martinez MD 02/02/2025 10:39 AM EST - 02/02/2025 11:58 AM EST [place] [address] Rodriguez Shukla MD CYSTOURETHROSCOPY, W/INSERTION, INDWELLING URETERAL STENT 01/31/2025 9:42 PM EST - 02/08/2025 7:39 PM EST Hospital Encounter EP [id number] [place] [address] Marie Woodson MD Shah, Krishna, MD Wang, Emily Ai Hua, MD Orabone, Joshua A, MD Kang, Heejae, MD Calo, Manjinder Bergman MD Graves disease (Primary Dx); Hyperthyroidism; Nephrolithiasis; Acute cystitis with hematuria; Mediastinal mass; Malnutrition, unspecified type (HC Code); Right nephrolithiasis; 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 No 02/02/2025 [facility] Utilities Answer Date Recorded In the past 12 months has [facility] electric, gas, oil, or water company threatened to shut off services in your home? No 02/02/2025 Housing Stability Answer Date Recorded What is your living situation today? I have a [facility] place to live 02/02/2025 Housing Stability Not [...] file Not on file Not on file Last Filed Vital Signs Vital Sign Reading [...] Mass Index 25.98 02/02/2025 4:00 PM EST Plan of Treatment Upcoming Encounters Date Type Department Care Team (Late st Contact Info) Description 02/11/2025 9:00 AM EST Office Visit [facility] Endocrine Neoplasia [address] [facility] [address] [place], [place] [address] Katina Vasquez MD [address] [facility] [address] [place] [address] 02/22/2025 9:00 AM EST Office Visit [facility] at [address] [place] [address] [address] [facility] [address] [place] [address] Anand Robbins MD [address] [place] [address] Health Maintenance Due Date Last Done Comments HIV screening 06/25/1999 Hepatitis C screening 2004 Tetanus adult (Td q 10,TDAP once) 2006 Cervical cancer screening 06/25/2007 Influenza vaccine 10/09/2024 Covid-19 vaccine series (2024- season) 2024 RSV Immunization (1 - 1-dose 75+ series) 2061 Meningococcal B Vaccine Aged Out No l onger eligible based on patient's age to complete this topic Meningococcal Vaccine Aged Out No matthew sharon eligible based on patient's age to complete this topic Pneumococcal Vaccine (2 - 49 years) Aged Out No longer eligible based on patient's age to complete this topic Medical Devices Implanted Type Area Transportation Operations Manager Device Identifier Shelf Expiration Date Model / Serial / Lot Stent Ascerta 6f X 24cm - [id number] Implanted:Qt y: 1 on 02/02/2025 by Rodriguez Shukla MD at [facility] [address] [place] Stent, Urological Right: [employer] [id number] 06/09/2026 [id number] / / [id number] Procedures Procedure Name Priority Date/Time Associated Diagnosis Comments COMPREHENSIVE METABOLIC PANEL Routine 02/08/2025 4:12 AM EST COMPREHENSIVE METABOLIC PANEL Routine 02/08/2025 4:12 AM EST MAGNESIUM Routine 02/08/2025 4:12 AM EST CBC WITHOUT DIFFERENTIAL Routine 02/08/2025 4:12 AM EST BASIC METABOLIC PANEL Routine 02/07/2025 4:31 AM EST CBC AND DIFFERENTIAL Routine 02/07/2025 4:31 AM EST BASIC METABOLIC PANEL Routine 02/07/2025 4:31 AM EST CBC WITH AUTO DIFFERENTIAL Routine 02/07/2025 4:31 AM EST PHOSPHORUS (BH GH L LMW YH) Routine 02/07/2025 4:31 AM EST MAGNESIUM Routine 02/07/2025 4:31 AM EST HEPATIC FUNCTION PANEL Routine 02/07/2025 4:31 AM EST BASIC METABOLIC PANEL Routine 02/06/2025 5:39 AM EST CBC AND DIFFERENTIAL Routine 02/06/2025 5:39 AM EST BASIC METABOLIC PANEL Routine 02/06/2025 5:39 AM EST CBC WITH AUTO DIFFERENTIAL Routine 02/06/2025 5:39 AM EST PHOSPHORUS (BH GH L LMW YH) Routine 02/06/2025 5:39 AM EST MAGNESIUM Routine 02/06/2025 5:39 AM EST HEPATIC FUNCTION PANEL Routine 02/06/2025 5:39 AM EST URINE MICROSCOPIC (BH GH LMW YH) STAT 02/05/2025 12:52 PM EST URINALYSIS WITH CULTURE REFLEX (BH LMW YH) Urgent 02/05/2025 12:52 PM EST UA REFLEX CULTURE Urgent 02/05/2025 12:52 PM EST URINALYSIS WITH CULTURE REFLEX Urgent 02/05/2025 12:52 PM EST BASIC METABOLIC PANEL Routine 02/05/2025 6:11 AM EST CBC AND DIFFERENTIAL Routine 02/05/2025 6:11 AM EST BASIC METABOLIC PANEL Routine 02/05/2025 6:11 AM EST CBC WITH AUTO DIFFERENTIAL Routine 02/05/2025 6:11 AM EST T3 Routine 02/05/2025 6:11 AM EST T4, FREE Routine 02/05/2025 6:11 AM EST PHOSPHORUS (BH GH L LMW YH) Routine 02/05/2025 6:11 AM EST MAGNESIUM Routine 02/05/2025 6:11 AM EST HEPATIC FUNCTION PANEL Routine 02/05/2025 6:11 AM EST BASIC METABOLIC PANEL Routine 02/04/2025 5:07 AM EST CBC AND DIFFERENTIAL Routine 02/04/2025 5:07 AM EST BASIC METABOLIC PANEL Routine 02/04/2025 5:07 AM EST CBC WITH AUTO DIFFERENTIAL Routine 02/04/2025 5:07 AM EST T3 Routine 02/04/2025 5:07 AM EST T4, FREE Routine 02/04/2025 5:07 AM EST PHOSPHORUS (BH GH L LMW YH) Routine 02/04/2025 5:07 AM EST MAGNESIUM Routine 02/04/2025 5:07 AM EST HEPATIC FUNCTION PANEL Routine 02/04/2025 5:07 AM EST BASIC METABOLIC PANEL Routine 02/03/2025 5:03 AM EST CBC AND DIFFERENTIAL Routine 02/03/2025 5:03 AM EST BASIC METABOLIC PANEL Routine 02/03/2025 5:03 AM EST CBC WITH AUTO DIFFERENTIAL Routine 02/03/2025 5:03 AM EST T3 Routine 02/03/2025 5:03 AM EST T4, FREE Routine 02/03/2025 5:03 AM EST PHOSPHORUS (BH GH L LMW YH) Routine 02/03/2025 5:03 AM EST MAGNESIUM Routine 02/03/2025 5:03 AM EST HEPATIC FUNCTION PANEL Routine 02/03/2025 5:03 AM EST GALA BY IFA W/RFLX TO DSDNA, VASCULAR SONOGRAPHER, SM, SSA, AND SSB ABS (LMW YH) Routine 02/03/2025 5:02 AM EST URINE CULTURE Urgent 02/02/2025 9:36 PM EST NR FL LESS THAN 1 HOUR EXAM Routine 02/02/2025 1:48 PM EST Right nephrolithiasis NV CYSTOSCOPY,INSERT URETERAL STENT Low Risk 02/02/2025 12:07 PM EST Nephrolithiasis CBC AND DIFFERENTIAL Routine 02/02/2025 4:35 AM EST BASIC METABOLIC PANEL Routine 02/02/2025 4:35 AM EST CBC WITH AUTO DIFFERENTIAL Routine 02/02/2025 4:35 AM EST BASIC METABOLIC PANEL Routine 02/02/2025 4:35 AM EST T3 Routine 02/02/2025 4:35 AM EST T4, FREE Routine 02/02/2025 4:35 AM EST MRI CHEST W WO IV CONTRAST Within 4 hours (Urgent) 02/01/2025 2:01 PM EST BASIC METABOLIC PANEL Routine 02/01/2025 6:23 AM EST CBC AND DIFFERENTIAL Routine 02/01/2025 6:23 AM EST ALBUMIN Timed 02/01/2025 6:23 AM EST PREALBUMIN Timed 02/01/2025 6:23 AM EST BASIC METABOLIC PANEL Routine 02/01/2025 6:23 AM EST CBC WITH AUTO DIFFERENTIAL Routine 02/01/2025 6:23 AM EST US RENAL Within 24 hours (Routine) 02/01/2025 2:17 AM EST POCT URINE STAT 02/01/2025 1:02 AM EST URINE MICROSCOPIC (BH GH LMW YH) STAT 02/01/2025 12:09 AM EST URINALYSIS-MACROSCO PIC W/REFLEX MICROSCOPIC STAT 02/01/2025 12:09 AM EST BASIC METABOLIC PANEL STAT 01/31/2025 11:19 PM EST CBC AND DIFFERENTIAL STAT 01/31/2025 11:19 PM EST T4, FREE Routine 01/31/2025 11:19 PM EST T3 Add-On 01/31/2025 11:19 PM EST HEPATIC FUNCTION PANEL Add-On 01/31/2025 11:19 PM EST HCG, QUANTITATIVE ( GH LMW YH) Add-On 01/31/2025 11:19 PM EST BASIC METABOLIC PANEL STAT 01/31/2025 11:19 PM EST CBC WITH AUTO DIFFERENTIAL STAT 01/31/2025 11:19 PM EST TSH W/REFLEX TO FT4 ( GH LMW Q YH) Timed 01/31/2025 11:19 PM EST PHOSPHORUS ( GH L LMW YH) STAT 01/31/2025 11:19 PM EST MAGNESIUM STAT 01/31/2025 11:19 PM EST EKG STAT 01/31/2025 8:19 PM EST from Last 3 Months Results * (ABNORMAL) Comprehensive metabolic panel (02/08/2025 4:12 AM EST) Sodium 141 136 - 144 mmol/L 02/08/2025 5:[address] [facility] DEPARTMENT OF LABORATORY MEDICINE Potassium 4.0 3.3 - 5.3 mmol/L 02/08/2025 5:[address] [facility] DEPARTMENT OF LABORATORY MEDICINE Chloride 106 98 - 107 mmol/L 02/08/2025 5:15 AM EST [facility] DEPARTMENT OF LABORATORY MEDICINE CO2 25 20 - 30 mmol/L 02/08/2025 5:15 AM EST [facility] DEPARTMENT OF LABORATORY MEDICINE Anion Gap 10 7 - 17 02/08/2025 5:[address] [facility] DEPARTMENT OF LABORATORY MEDICINE Glucose 96 70 - 100 mg/dL 02/08/2025 5:[address] [facility] DEPARTMENT OF LABORATORY MEDICINE BUN 8 6 - 20 mg/dL 02/08/2025 5:[address] [facility] DEPARTMENT OF LABORATORY MEDICINE Creatinine 0.61 0.40 - 1.30 mg/dL 02/08/2025 5:[address] [facility] DEPARTMENT OF LABORATORY MEDICINE Calcium 9.2 8.8 - 10.2 mg/dL 02/08/2025 5:[address] [facility] DEPARTMENT OF LABORATORY MEDICINE BUN/Creatinine Ratio 13.1 8.0 - 23.0 02/08/2025 5:[address] [facility] DEPARTMENT OF LABORATORY MEDICINE Total Protein 5.9 5.9 - 8.3 g/dL 025 5:[address] [facility] DEPARTMENT OF LABORATORY MEDICINE Albumin 3.2(L) 3.6 - 5.1 g/dL 02/08/2025 5:[address] [facility] DEPARTMENT OF LABORATORY MEDICINE Total Bilirubin 0.4 <=1.2 mg/dL 02/09/20 25 5:[address] [facility] DEPARTMENT OF LABORATORY MEDICINE Alkaline Phosphatase 68 9 - 122 U/L 02/08/2025 5:[address] [facility] DEPARTMENT OF LABORATORY MEDICINE Alanine Aminotransferase (ALT) 101(H) 10 - 35 U/L 02/08/2025 5:[address] [facility] DEPARTMENT OF LABORATORY MEDICINE Comment:Calcium dobesilate c an cause artificially low ALT results at therapeutic concentrations Aspartate Aminotransferase (AST) 69(H) 10 - 35 U/L 02/08/2025 5:[address] [facility] DEPARTMENT OF LABORATORY MEDICINE Globulin 2.7 2.0 - 3.9 g/dL 02/08/2025 5:[address] [facility] DEPARTMENT OF LABORATORY MEDICINE A/G Ratio 1.2 1.0 - 2.2 02/08/2025 5:[address] [facility] DEPARTMENT OF LABORATORY MEDICINE AST/ALT Ratio 0.7 Reference Range Not Established 02/08/2025 5:[address] [facility] DEPARTMENT OF LABORATORY MEDICINE eGFR (Creatinine) >60 >=60 mL/min/1.73m2 02/08/2025 5:[address] [facility] DEPARTMENT OF LABORATORY MEDICINE Comment: [facility] utilizes CKD-EPI Creatinine 2020 to report eGFR. Values < 60 mL/min/1.73 m2 may indicate CKD if present for more than three months AND creatinine is at steady state. The eGFR provides a rough estimate of kidney function. For further guidance, please refer to the CKD: Adult Oil Tanker Captain Signature pathway. Creatinine Delta 0.03 See Comment 12/01/2 025 5:[address] [facility] DEPARTMENT OF LABORATORY MEDICINE Comment: [...] ORDERABLES Final R esult Performing Organization Address City/State/[facility] Co de Phone Number [facility] DEPARTMENT OF LABORATORY MEDICINE [address] [place] [address] * (ABNORMAL) CBC without differential (02/08/2025 4:12 AM EST) WBC 5.1 4.0 - 11.0 x1000/ L 02/08/2025 4:[address] [facility] DEPARTMENT OF LABORATORY MEDICINE RBC 3.45(L) 4.00 - 6.00 M/ L 02/08/2025 4:[address] [facility] DEPARTMENT OF LABORATORY MEDICINE Hemoglobin 10.3(L) 11.7 - 15.5 g/dL 02/08/2025 4:[address] [facility] DEPARTMENT OF LABORATORY MEDICINE Hematocrit 30.20(L) 35.00 - 45.00 % 02/08/2025 4:[address] [facility] DEPARTMENT OF LABORATORY MEDICINE MCV 87.5 80.0 - 100.0 fL 02/08/2025 4:[address] [facility] DEPARTMENT OF LABORATORY MEDICINE MCH 29.9 27.0 - 33.0 pg 02/08/2025 4:[address] [facility] DEPARTMENT OF LABORATORY MEDICINE MCHC 34.1 31.0 - 36.0 g/dL 02/08/2025 4:[address] [facility] DEPARTMENT OF LABORATORY MEDICINE RDW-CV 12.4 11.0 - 15.0 % 02/08/2025 4:[address] [facility] DEPARTMENT OF LABORATORY MEDICINE Platelets 286 150 - 420 x1000/ L 02/08/2025 4:[address] [facility] DEPARTMENT OF LABORATORY MEDICINE MPV 11.3 8.0 - 12.0 fL 02/08/2025 4:[address] [facility] DEPARTMENT OF LABORATORY MEDICINE ANC (Abs Neutrophil Count) 2.04 2.00 - 7.60 x 1000/ L 02/08/2025 4:[address] [facility] DEPARTMENT OF LABORATORY MEDICINE Blood Venipuncture / Unknown 02/08/2025 4:12 AM EST 02/08/2025 4:47 AM EST Uriel Kaplan MD LAB BLOOD ORDERABLES Final R esult Performing Organization Address City/[facility] Co de Phone Number [facility] OF LABORATORY MEDICINE [address] [place] [address] * (ABNORMAL) Magnesium (02/08/2025 4:12 AM EST) Only the most recent of7 resultswithin the time period is included. Pathologist [facility] Magnesium 1.5(L) 1.7 - 2.4 mg/dL 02/08/2025 5:[address] [facility] DEPARTMENT OF LABORATORY MEDICINE Blood Venipuncture / Unknown 02/08/2025 4:12 AM EST 02/08/2025 4:47 AM EST Uriel Kaplan MD LAB BLOOD ORDERABLES Final R esult Performing Organization Address City/[facility] Co de Phone Number [facility] OF LABORATORY MEDICINE [address] [place] [address] * (ABNORMAL) Basic metabolic panel (02/07/2025 4:31 AM EST) Only the most recent of8 resultswithin the time period is included. Sodium 141 136 - 144 mmol/L 02/07/2025 5:[address] [facility] DEPARTMENT OF LABORATORY MEDICINE Potassium 4.1 3.3 - 5.3 mmol/L 02/07/2025 5:15 AM [facility] OF LABORATORY MEDICINE Chloride 108(H) 98 - 107 mmol/L 02/07/2025 5:[address] [facility] DEPARTMENT OF LABORATORY MEDICINE CO2 24 20 - 30 mmol/L 02/07/2025 5:[address] [facility] LABORATORY MEDICINE Anion Gap 9 7 - 17 02/07/2025 5:[address] [facility] LABORATORY MEDICINE Glucose 107(H) 70 - 100 mg/dL 02/07/2025 5:[address] [facility] LABORATORY MEDICINE BUN 12 6 - 20 mg/dL 02/07/2025 5:[address] [facility] DEPARTMENT OF LABORATORY [facility] Creatinine 0.58 0.40 - 1.30 mg/dL 02/07/2025 5:[address] [facility] LABORATORY MEDICINE Calcium 9.6 8.8 - 10.2 mg/dL 02/07/2025 5:[address] [facility] DEPARTMENT OF LABORATORY MEDICINE BUN/Creatinine Ratio 20.7 8.0 - 23.0 02/07/2025 5:[address] [facility] DEPARTMENT OF LABORATORY MEDICINE eGFR (Creatinine) >60 >=60 mL/min/1.73 m2 02/07/2025 5:[address] [facility] DEPARTMENT OF LABORATORY MEDICINE Comment: [facility] utilizes CKD-EPI Creatinine 2020 to report eGFR. Values < 60 mL/min/1.73 m2 may indicate CKD if present for more than three months AND creatinine is at steady state. The eGFR provides a rough estimate of kidney function. For further guidance, please refer to the CKD: Adult Oil Tanker Captain Signature pathway. Creatinine Delta -0.02 See Comment 025 5:[address] [facility] DEPARTMENT OF LABORATORY MEDICINE Comment: [...] MD LAB BLOOD ORDERABLES Final Result [facility] DEPARTMENT OF LABORATORY MEDICINE [address] [place] [address] * (ABNORMAL) CBC auto differential (02/07/2025 4:31 AM EST) Only the most recent of8 resultswithin the time period is included. WBC 6.7 4.0 - 11.0 x1000/ L 02/07/2025 4:[address] [facility] DEPARTMENT OF LABORATORY MEDICINE RBC 3.71(L) 4.00 - 6.00 M/ L 02/07/2025 4:[address] [facility] DEPARTMENT OF LABORATORY MEDICINE Hemoglobin 11.1(L) 11.7 - 15.5 g/dL 02/07/2025 4:[address] [facility] DEPARTMENT OF LABORATORY MEDICINE Hematocrit 32.30(L) 35.00 - 45.00 % 02/07/2025 4:[address] [facility] DEPARTMENT OF LABORATORY MEDICINE MCV 87.1 80.0 - 100.0 fL 02/07/2025 4:[address] [facility] DEPARTMENT OF LABORATORY MEDICINE MCH 29.9 27.0 - 33.0 pg 02/07/2025 4:[address] [facility] DEPARTMENT OF LABORATORY MEDICINE MCHC 34.4 31.0 - 36.0 g/dL 02/07/2025 4:[address] [facility] DEPARTMENT OF LABORATORY MEDICINE RDW-CV 12.3 11.0 - 15.0 % 02/07/2025 4:[address] [facility] DEPARTMENT OF LABORATORY MEDICINE Platelets 292 150 - 420 x1000/ L 02/07/2025 4:[address] [facility] DEPARTMENT OF LABORATORY MEDICINE MPV 11.3 8.0 - 12.0 fL 02/07/2025 4:[address] [facility] DEPARTMENT OF LABORATORY MEDICINE Neutrophils 51.1 39.0 - 72.0 % 02/07/2025 4:[address] [facility] DEPARTMENT OF LABORATORY MEDICINE Lymphocytes 39.0 17.0 - 50.0 % 02/07/2025 4:[address] [facility] DEPARTMENT OF LABORATORY MEDICINE Monocytes 6.4 4.0 - 12.0 % 02/07/2025 4:[address] [facility] DEPARTMENT OF LABORATORY MEDICINE Eosinophils 3.1 0.0 - 5.0 % 02/07/2025 4:[address] [facility] DEPARTMENT OF LABORATORY MEDICINE Basophil 0.3 0.0 - 1.4 % 02/07/2025 4:[address] [facility] DEPARTMENT OF LABORATORY MEDICINE Immature Granulocytes 0.1 0.0 - 1.0 % 02/07/2025 4:[address] [facility] DEPARTMENT OF LABORATORY MEDICINE nRBC 0.0 0.0 - 1.0 % 02/07/2025 4:[address] [facility] DEPARTMENT OF LABORATORY MEDICINE Absolute Lymphocyte Count 2.60 0.60 - 3.70 x 1000/ L 02/07/2025 4:[address] [facility] DEPARTMENT OF LABORATORY MEDICINE Monocyte Absolute Count 0.43 0.00 - 1.00 x 1000/ L 02/07/2025 4:[address] [facility] DEPARTMENT OF LABORATORY MEDICINE Eosinophil Absolute Count 0.21 0.00 - 1.00 x 1000/ L 02/07/2025 4:[address] [facility] DEPARTMENT OF LABORATORY MEDICINE Basophil Absolute Count 0.02 0.00 - 1.00 x 1000/ L 02/07/2025 4:[address] [facility] DEPARTMENT OF LABORATORY MEDICINE Absolute Immature Granulocyte Count 0.01 0.00 - 0.30 x 1000/ L 02/07/2025 4:[address] [facility] DEPARTMENT OF LABORATORY MEDICINE Absolute nRBC 0.00 0.00 - 1.00 x 1000/ L 02/07/2025 4:[address] [facility] DEPARTMENT OF LABORATORY MEDICINE ANC (Abs Neutrophil Count) 3.40 2.00 - 7.60 x 1000/ L 02/07/2025 4:[address] [facility] DEPARTMENT OF LABORATORY MEDICINE Blood ARM NEC / Unknown Venipuncture / Unknown 02/07/2025 4:31 AM EST 02/07/2025 4:48 AM EST Gwen Morales MD LAB BLOOD ORDERABLES Final Result Performing Organization Address [facility] de Phone Number [facility] DEPARTMENT OF LABORATORY MEDICINE [address] [place] [address] * (ABNORMAL) Phosphorus (BH GH L LMW YH) (02/07/2025 4:31 AM EST) Only the most recent of6 resultswithin the time period is included. Phosphorus 5.0(H) 2.2 - 4.5 mg/dL 02/07/2025 5:15 AM EST [facility] DEPARTMENT OF LABORATORY MEDICINE Blood ARM NEC / Unknown Venipuncture / Unknown 02/07/2025 4:31 AM EST 02/07/2025 4:48 AM EST Gwen Morales MD LAB BLOOD ORDERABLES Final Result Performing Organization Address [facility] de Phone Number [facility] LABORATORY MEDICINE [address] [place] [address] * (ABNORMAL) Hepatic function panel (02/07/2025 4:31 AM EST) Only the most recent of6 resultswithin the time period is included. Total Bilirubin 0.3 <=1.2 mg/dL 02/08/20 5:15 AM EST [facility] DEPARTMENT OF LABORATORY MEDICINE Bilirubin, Direct 0.2 <=0.2 mg/dL 2024 5:15 AM EST [facility] DEPARTMENT OF LABORATORY MEDICINE Comment: Effective 11/26/2024 [facility] changed the Direct Bilirubin testing method from the Martha method to the Randox method. Alkaline Phosphatase 91 9 - 122 U/L 02/07/2025 5:15 AM EST [facility] DEPARTMENT OF LABORATORY MEDICINE Alanine Aminotransferase (ALT) 107(H) 10 - 35 U/L 02/07/2025 5:15 AM EST [facility] DEPARTMENT OF LABORATORY MEDICINE Comment:Calcium dobesilate c an cause artificially low ALT results at therapeutic concentrations Aspartate Aminotransferase (AST) 87(H) 10 - 35 U/L 02/07/2025 5:15 AM EST [facility] DEPARTMENT OF LABORATORY MEDICINE AST/ALT Ratio 0.8 Reference Range Not Established 02/07/2025 5:15 AM EST [facility] DEPARTMENT OF LABORATORY MEDICINE Total Protein 6.3 5.9 - 8.3 g/dL 02/07/ 025 5:15 AM EST [facility] DEPARTMENT OF LABORATORY MEDICINE Albumin 3.5(L) 3.6 - 5.1 g/dL 02/07/2025 5:[address] [facility] DEPARTMENT OF LABORATORY MEDICINE Globulin 2.8 2.0 - 3.9 g/dL 02/07/2025 5:[address] [facility] DEPARTMENT OF LABORATORY MEDICINE A/G Ratio 1.3 1.0 - 2.2 02/07/2025 5:15 AM EST [facility] DEPARTMENT OF LABORATORY MEDICINE Blood ARM NEC / Unknown Venipuncture / Unknown 02/07/2025 4:31 AM EST 02/07/2025 4:48 AM EST us Gwen Morales MD LAB BLOOD ORDERABLES Final Result Performing Organization Address City/State/[facility] Co de Phone Number [facility] DEPARTMENT OF LABORATORY MEDICINE [address] [place] [address] * (ABNORMAL) Urinalysis with culture reflex ([facility]) (02/05/2025 12:52 PM EST) Clarity, UA Cloudy(A) Clear 02/05/2025 2:45 PM EST [facility] DEPARTMENT OF LABORATORY MEDICINE Color, UA [place](A) Yellow, Colorless 02/05/2025 2:45 PM EST [facility] DEPARTMENT OF LABORATORY MEDICINE Specific [place], UA 1.014 1.005 - 1.030 02/05/2025 2:45 PM EST [facility] DEPARTMENT OF LABORATORY MEDICINE pH, UA 02/05/2025 2:45 PM EST [facility] DEPARTMENT OF LABORATORY MEDICINE Comment:Unable to complete u rine macroscopic testing due to color interference. Protein, UA 02/05/2025 2:45 PM EST [facility] DEPARTMENT OF LABORATORY MEDICINE Comment:Unable to complete u rine macroscopic testing due to color interference. Glucose, UA 02/05/2025 2:45 PM EST [facility] DEPARTMENT OF LABORATORY MEDICINE Comment:Unable to complete u rine macroscopic testing due to color interference. Ketones, UA 02/05/2025 2:45 PM EST [facility] DEPARTMENT OF LABORATORY MEDICINE Comment:Unable to complete u rine macroscopic testing due to color interference. Blood, UA 02/05/2025 2:45 PM EST [facility] DEPARTMENT OF LABORATORY MEDICINE Comment:Unable to complete u rine macroscopic testing due to color interference. Bilirubin, UA 02/05/2025 2:45 PM EST [facility] DEPARTMENT OF LABORATORY MEDICINE Comment:Unable to complete u rine macroscopic testing due to color interference. Leukocytes, UA 02/05/2025 2:45 PM EST [facility] DEPARTMENT OF LABORATORY MEDICINE Comment:Unable to complete u rine macroscopic testing due to color interference. Nitrite, UA 02/05/2025 2:45 PM EST [facility] DEPARTMENT OF LABORATORY MEDICINE Comment:Unable to complete u rine macroscopic testing due to color interference. Urobilinogen, UA 02/05/2025 2:45 PM EST [facility] DEPARTMENT OF LABORATORY MEDICINE Comment:Unable to complete u rine macroscopic testing due to color interference. Guerrero Top Tube Received ? Yes 02/05/2025 2:[address] [facility] DEPARTMENT OF LABORATORY MEDICINE Urine Collection / Unknown 02/05/2025 12:52 PM EST 02/05/2025 1:42 PM EST Narrative [facility] DEPARTMENT OF LABORATORY MEDICINE - 02/05/2025 2:45 PM EST Unable to complete urine macroscopic testing due to color interference. us Uriel Kaplan MD URINE ORDERABLES Final Resul t [facility] DEPARTMENT OF LABORATORY MEDICINE [address] [place] [address], [facility] [phone] * UA reflex to culture (02/05/2025 12:52 PM EST) Reflex Urine Culture See Comment 02/05/2025 4:01 PM EST [facility] DEPARTMENT OF LABORATORY MEDICINE Urine Collection / Unknown 02/05/2025 12:52 PM EST 02/05/2025 1:42 PM EST Narrative [facility] DEPARTMENT OF LABORATORY MEDICINE - 02/05/2025 4:01 PM EST Urine culture will be reflexed if indicated by urinalysis results. Please check microbiology results for urine culture. Uriel Kaplan MD URINE ORDERABLES Final Resul t Performing Organization Address City/[facility]/ZIP Co de Phone Number [facility] DEPARTMENT OF LABORATORY MEDICINE [address] [place] [address] * (ABNORMAL) Urine microscopic ([facility]) (02/05/2025 12:52 PM EST) Only the most recent of2 resultswithin the time period is included. Manual Microscopic Performed 02/05/2025 3:[address] [facility] DEPARTMENT OF LABORATORY MEDICINE RBC/HPF >30(A) 0 - 2 /HPF 02/05/2025 3:[address] [facility] DEPARTMENT OF LABORATORY MEDICINE WBC/HPF 3-5 0 - 5 /HPF 02/05/2025 3:[address] [facility] DEPARTMENT OF LABORATORY MEDICINE Bacteria, UA Rare None-Rare /HPF 02/05/2025 3:[address] [facility] DEPARTMENT OF LABORATORY MEDICINE Urine Squamous Epithelial Cells, UA Few None-Few /HPF 02/05/2025 3:[address] [facility] DEPARTMENT OF LABORATORY MEDICINE Trans Epithelial Cells, UA Rare(A) None /HPF 02/05/2025 3:[address] [facility] DEPARTMENT OF LABORATORY MEDICINE Ca Oxalate Maria T, UA Rare(A) None /HPF 02/05/2025 3:[address] [facility] DEPARTMENT OF LABORATORY MEDICINE RBC/HPF, UA 02/05/2025 3:24 PM EST [facility] DEPARTMENT OF LABORATORY MEDICINE WBC/HPF, UA 02/05/2025 3:[address] [facility] DEPARTMENT OF LABORATORY MEDICINE Urine Collection / Unknown 02/05/2025 12:52 PM EST 02/05/2025 1:42 PM EST Uriel Kaplan MD URINE ORDERABLES Final Resul t [facility] DEPARTMENT OF LABORATORY MEDICINE [address] [place] [address] * (ABNORMAL) T3 (02/05/2025 6:11 AM EST) Only the most recent of5 resultswithin the time period is included. T3, Total 303.0(H) See Comment ng/dL 02/05/2025 7:29 AM EST [facility] DEPARTMENT OF LABORATORY MEDICINE Comment: Male & Non- Females: 72.0-153.0 ng/dL 1st Trimester: 92.0-224.0 ng/dL 2nd Trimester: 99.0-242.0 ng/dL Blood Venipuncture / Unknown 02/05/2025 6:11 AM EST 02/05/2025 6:52 AM EST Gwen Morales MD LAB BLOOD ORDERABLES Final Result Performing Organization Address [facility] de Phone Number [facility] DEPARTMENT OF LABORATORY MEDICINE [address] [place] [address] * (ABNORMAL) T4, free (02/05/2025 6:11 AM EST) Only the most recent of5 resultswithin the time period is included. Free T4 2.95(H) See Comment ng/dL 02/05/2025 7:29 AM EST [facility] DEPARTMENT OF LABORATORY MEDICINE Comment: For patients [...] BLOOD ORDERABLES Final Result Performing Organization Address City/[facility]/ZIP Co de Phone Number [facility] DEPARTMENT OF LABORATORY MEDICINE [address] [place] [address] * GALA by IFA w/rflx to dsDNA, VASCULAR SONOGRAPHER, SM, SSA, and SSB Abs (LMW YH) (02/03/2025 5:02 AM EST) GALA <1:80 <1:80 (Negative ) 02/03/2025 3:20 PM EST [facility] DEPARTMENT OF LABORATORY MEDICINE Comment: Specimen tested using a HEp-2 indirect immunofluorescent assay. Effective November 18, 2023, GALA testing will be performed on the [employer] IFA platform. Please note; previous results may not directly correlate due to method change. Blood Venipuncture / Unknown 02/03/2025 5:02 AM EST 02/03/2025 6:01 AM EST Uriel Kaplan MD LAB BLOOD ORDERABLES Final R esult Performing Organization Address City/[facility]/ZIP Co de Phone Number [facility] DEPARTMENT OF LABORATORY MEDICINE [address] [place] [address] * Urine culture (02/02/2025 9:36 PM EST) Urine Culture, Routine Less than 10,000 CFU/mL. Clinical significance is unlikely for organism(s) present in quantities of less than 10,000 CFU/mL. 02/03/2025 6:01 PM EST [facility] DEPARTMENT OF LABORATORY MEDICINE Urine URINE SPECIMEN OBTAINED BY CLEAN CATCH PROCEDURE / Unknown Collection / Unknown 02/02/2025 9:36 PM EST 02/02/2025 9:57 PM EST Narrative [facility] DEPARTMENT OF LABORATORY MEDICINE - 02/03/2025 6:01 PM EST Culture, organism identification, and/or susceptibility results may have been generated with a non-FDA approved method. All methods used in this report have been validated by [facility] Microbiology for clinical use. us Manjinder Maguire MD MICROBIOLOGY - GENERAL [place]AY Final Result [facility] DEPARTMENT OF LABORATORY MEDICINE [address] [place] [id number] [place] [address] * NR FL Less Than 1 Hour Exam (02/02/2025 1:48 PM EST) Narrative RAD4 - 02/02/2025 1:49 PM EST DISCLAIMER This procedure captures images only. There is no report. 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 Report initiated by: Dick Madrigal MD Reported and signed by: Ana M Moreira MD [facility] Narrative 02/01/2025 3:40 [...] It demonstrates loss of signal intensity on drq-ry-[id number] imaging with signal intensity index of 11.6%. [...] chest, abdomen, and pelvis dated103/28/2024 viewed on [employer]. TECHNIQUE: Multiplanar, multisequence MR imaging of the chest wasperformed before and after administration of IV contrast. . 14 mLgadoterate meglumine (DOTAREM) 0.5 mmol/mL (376.9 mg/mL) injection wasintravenously administered. Postprocessed subtraction images are alsoincluded. FINDINGS: Mediastinum: Pyramidal-shaped anterior mediastinal mass demonstratingisointense signal on the T1-weighted precontrast images, intermediatebright signal on the T2-weighted and T2 weighted fat saturation images. Itdemonstrates loss of signal intensity on rxf-uv-[id number] imaging with signalintensity index of 11.6%. Post [...] and signed by: Ana M Moreira MD [facility] us Marie Woodson MD IMG MRI ORDERABLES Final Result * Prealbumin (02/01/2025 6:23 AM EST) Prealbumin 23.0 20.0 - 40.0 mg/dL 02/01/2025 8:04 AM EST [facility] DEPARTMENT OF LABORATORY MEDICINE Blood Venipuncture / Unknown 02/01/2025 6:23 AM EST 02/01/2025 7:34 AM EST Manjinder Maguire MD LAB BLOOD ORDERABLES Final Result Performing Organization Address City/[facility] Co de Phone Number [facility] DEPARTMENT OF LABORATORY MEDICINE [address] [place] [address] * Albumin (02/01/2025 6:23 AM EST) Albumin 3.8 3.6 - 5.1 g/dL 02/01/2025 7:23 AM EST [facility] DEPARTMENT OF LABORATORY MEDICINE Blood Venipuncture / Unknown 02/01/2025 6:23 AM EST 02/01/2025 6:56 AM EST Manjinder Maguire MD LAB BLOOD ORDERABLES Final Result Performing Organization Address City/[facility] Co de Phone Number [facility] DEPARTMENT OF LABORATORY MEDICINE [address] [place] [address] * US Renal (02/01/2025 2:17 AM EST) [...] above. The bilateral ureteral jets are visualized. [facility] Radiology Notify System Classification: Routine. Report initiated by: Tariq Zee MD Reported and signed by: Jr Cosby MD [facility] Narrative 02/01/2025 5:09 AM EST US RENAL. HISTORY: 39F known b/l calculi, evaluate for movement of stones into ureter on R. COMPARISON: CT chest abdomen pelvis dated 01/26/2025 performed at an outside institution, images available on [employer]. TECHNIQUE: Grayscale and color Doppler imaging were [...] chest abdomen pelvis dated 01/26/2025 performed at [facility], images available on [employer]. TECHNIQUE: Grayscale and color Doppler imaging were performed. FINDINGS: RIGHT KIDNEY: Size: 13.9 in maximal sagittal dimension. 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 Thereis evidence of scarring and partial rotational anomaly of the lower polemoiety. Two renal calculi are seen within the lower pole moiety [id number] and 8 mm, which are seen on [...] described above. The bilateral ureteral jets arevisualized. [facility] Radiology Notify System Classification: Routine. Report initiated by: Tariq Zee MD Reported and signed by: Jr Cosby MD [facility] Marie Woodson MD [facility] [place] ORDERABLES Final Result * POCT urine (02/01/2025 1:02 AM EST) Preg Test, Ur, POC Negative Negative [facility] Line in Control Window? (+ Control) Yes [facility] Background Clear? (- Control) Yes [facility] Kit Lot Number [id number] [facility] Expiration Date 04/29/2026 [facility] Urine URINE SPECIMEN / Unknown 02/01/2025 1:02 AM EST us Marie Woodson MD POINT OF CARE TEST ORDERABLES F inal Result [facility] [place], [facility] * (ABNORMAL) Urine macroscopic (02/01/2025 12:09 AM EST) Clarity, UA Cloudy(A) Clear 02/01/2025 12:28 AM EST [facility] DEPARTMENT OF LABORATORY MEDICINE Color, UA Yellow Yellow, Colorless 02/01/2025 12:[address] [facility] DEPARTMENT OF LABORATORY MEDICINE Specific [place], UA 1.023 1.005 - 1.030 02/01/2025 12:[address] [facility] DEPARTMENT OF LABORATORY MEDICINE pH, UA 5.5 5.5 - 7.5 02/01/2025 12:[address] [facility] DEPARTMENT OF LABORATORY MEDICINE Protein, UA 1+(A) Negative, Trace 02/01/2025 12:[address] [facility] DEPARTMENT OF LABORATORY MEDICINE Glucose, UA Negative Negative 02/01/2025 12:[address] [facility] DEPARTMENT OF LABORATORY MEDICINE Ketones, UA Negative Negative 02/01/2025 12:[address] [facility] DEPARTMENT OF LABORATORY MEDICINE Blood, UA 1+(A) Negative 02/01/2025 12:[address] [facility] DEPARTMENT OF LABORATORY MEDICINE Bilirubin, UA Negative Negative 02/01/2025 12:[address] [facility] DEPARTMENT OF LABORATORY MEDICINE Leukocytes, UA 2+(A) Negative 02/01/2025 12:[address] [facility] DEPARTMENT OF LABORATORY MEDICINE Nitrite, UA Negative Negative 02/01/2025 12:[address] [facility] DEPARTMENT OF LABORATORY MEDICINE Urobilinogen, UA <2.0 <=2.0 mg/dL 02/01/2025 12:[address] [facility] DEPARTMENT OF LABORATORY MEDICINE Urine Collection / Unknown 02/01/2025 12:09 AM EST 02/01/2025 12:24 AM EST us Marie Woodson MD URINE ORDERABLES Final Result [facility] DEPARTMENT OF LABORATORY MEDICINE [address] [place] [address] * (ABNORMAL) TSH w/reflex to FT4 (01/31/2025 11:19 PM EST) Thyroid Stimulating Hormone <0.005(L) See Comment IU/mL 02/01/2025 12:55 AM EST [facility] DEPARTMENT OF LABORATORY MEDICINE Comment: Male & Non- Females: 0.270-4.200 IU/mL 1st Trimester: 0.110-3.480 IU/mL 2nd Trimester: 0.320-3.850 IU/mL Blood Venipuncture / Unknown 01/31/2025 11:19 PM EST 01/31/2025 11:59 PM EST us Marie Woodson MD LAB BLOOD ORDERABLES Final Resu lt [facility] DEPARTMENT OF LABORATORY MEDICINE [address] [place] [address] * hCG, quantitative (01/31/2025 11:19 PM EST) hCG, Quantitative <1 See Comment mIU/mL 02/01/2025 12:54 AM EST [facility] DEPARTMENT OF LABORATORY MEDICINE Comment: Males and non females: <5 mIU/mL females: 1st week of gestation: 5-50 mIU/mL Levels double every 1.5-2 days in early first trimester Peak: 300,000 mIU/mL in late first trimester Effective 12/25/2018 the Clinical Chemistry lab at [facility] has switched to a new Total hCG assay with improved detection for various hCG forms to aid in detection of various disease conditions like ectopic , choriocarcinoma, testicular cancer, trophoblastic diseases, and nontrophoblastic tumors. Blood Venipuncture / Unknown 01/31/2025 11:19 PM EST 01/31/2025 11:59 PM EST us Marie Woodson MD LAB BLOOD ORDERABLES Final Resu lt Performing Organization Address City/[facility]/ZIP Co de Phone Number [facility] DEPARTMENT OF LABORATORY MEDICINE [address] [place] [address] * EKG (01/31/2025 8:19 PM EST) Heart Rate 105 bpm [facility] EKG QRS Interval 77 ms [facility] EKG QT Interval 331 ms [facility] EKG QTC Interval 439 ms [facility] EKG P [place] 29 deg [facility] EKG QRS [place] 37 deg [facility] EKG T Wave [place] 57 deg [facility] EKG P-R Interval 129 msec [facility] EKG SEVERITY Borderline ECG severity [facility] EKG Comment::Sinus tachycardia:C onsider left ventricular hypertrophy:Electronically Signed On 02-01-2025 2:27:04 EST by Marie Woodson MD OTHER / Unknown 01/31/2025 8 :19 PM EST Miguel Christianson MD ECG ORDERABLES Final Result [facility] EKG from Last 3 Months Insurance HEALTHCARE Advance Directives * Full Code (Latest Code Status on File) Date Activated Date Inactivated Comments 02/01/2025 5:33 AM 02/08/2025 11:45 PM Care Teams Teasel Gig Operator Relationship Specialty Start Date End Date [address] [id number] PCP - General 01/31/25
--- OUTSIDE RECORDS SUMMARY | 2025-02-10 16:23 | XMS_ITS | Encounter Summary ---
Author Organization [facility] Address [address] [place] [phone] Phone Care Team Providers Care Basic Acoustic Analyst Name Role Phone Pcp, Not Required Primary Care Provider Unavaila ble Encounter Details Date Type Department Care Team (Late st Contact Info) Description 07/12/2024 Procedure Pass [facility], Ct Scan - [address] [address] Social History Tobacco Use Types Packs/Day Years [...] 7:11 AM EDT Amor Gross RN * [place] Suicide Severity Rating Scale (Screener/Recent Self-Report) Question [...] Description 02/12/2025 11:30 AM EST Office Visit [facility] [address] [place] [address] Nikita Mireles PA-C [address] [place] [address] [place] [address] Karyna Aguirre, PT [address] [place] [address] 02/17/2025 10:00 AM EST Office Visit [facility] [address] [place] [address] Nikita Mireles PA-C [address] [place] [address] [place] [address] [email or web address] Karyna Aguirre, PT [address] [place] [address] 02/19/2025 1:00 PM EST Office Visit [facility] [address] [place] [address] Nikita Mireles PA-C [address] [place] [address] [place] [address] Karyna Aguirre, PT [address] [place] [address] 02/22/2025 10:00 AM EST Office Visit [facility] [address] [place] [address] Nikita Mireles PA-C [address] [place] [address] [place] [address] Karyna Aguirre, PT [address] [place] [address] 02/24/2025 10:45 AM EST Office Visit [facility] [address] [place] [address] Nikita Mireles PA-C [address] [place] [address] [place] [address] Karyna Aguirre, PT [address] [place] [address] 03/02/2025 2:00 PM EST Office Visit [facility] [address] [place] [address] [place] [address] Nikita Mireles PA-C [address] [place] [address] [place] [address] documented as of this encounter Visit Diagnoses Not on filedocumented in this encounter Care Teams Basic Acoustic Analyst Relationship Specialty Start Date End Date Pcp, Not Required [address] [place] [address] PCP - General 11/09/15 documented as of this encounter Additional Source Comments The information contained in this document represents components of the legal health record. It is not the complete legal health record.[facility]
--- OUTSIDE RECORDS SUMMARY | 2025-02-10 16:23 | XMS_ITS | Clinical Summary ---
Author Organization [facility] Address [address] [place] [phone] Phone Care Team Providers Care Hosting Engineer Name Role Phone Pcp, Not Required [...] Date Type Department Care Team Description 02/10/[address] [place] [address] Karyna Aguirre, PT Appointment 01/25/[address] [place] [address] Karyna Aguirre, PT Appointment 01/18/2025 11:30 AM EST Office Visit [address] [place] [address] Nikita Mireles PA-C Clark, Karyna Selby, PT Weakness of right shoulder (Primary Dx) 01/11/2025 10:00 AM EST Office Visit [address] [place] [address] Nikita Mireles PA-C Clark, Karyna Selby, PT Weakness of right shoulder (Primary Dx) 01/06/2025 10:00 AM EDT Office Visit [address] [place] [address] Nikita Mireles PA-C Clark, Karyna Selby, PT Weakness of right shoulder (Primary Dx) 12/30/2024 11:15 AM EDT Office Visit [facility] [address] [place] [address] Jalen Sweeney DO Traumatic complete tear of right rotator cuff, initial encounter (Primary Dx); H/O repair of right rotator cuff 12/30/2024 10:00 AM EDT Office Visit [facility] [address] [place] [address] Nikita Mireles PA-C Clark, Karyna Selby, PT Weakness of right shoulder (Primary Dx) 12/28/2024 10:00 AM EDT Office Visit [facility] [address] [place] [address] Nikita Mireles PA-C Clark, Karyna Selby, PT Weakness of right shoulder (Primary Dx) 12/23/2024 Telephone [facility] [address] [place] [address] Karyna Aguirre, PT Appointment 12/18/2024 11:30 AM EDT Office Visit [facility] [address] [place] [address] Nikita Mireles PA-C Clark, Karyna Selby, PT Weakness of right shoulder (Primary Dx) 12/16/2024 10:00 AM EDT Office Visit [facility] [address] [place] [address] Nikita Mireles PA-C Clark, Karyna Selby, PT Weakness of right shoulder (Primary Dx) 12/09/2024 10:15 AM EDT Office Visit [facility] [address] [place] [address] Nikita Mireles PA-C Bell, Ross, PT Weakness of right shoulder (Primary Dx) 12/04/2024 Telephone [facility] [address] [place] [address] Karyna Aguirre, PT Upcoming appointment 12/02/2024 9:40 AM EDT Office Visit [facility] Orth[facility] & [facility] Medicine [address] [place] [address] Nikita Mireles PA-C H/O repair of right rotator cuff (Primary Dx) 11/26/2024 8:45 AM EDT Office Visit [facility] [address] [place] [address] Nikita Mireles PA-C Bell, Ross, PT Weakness of right shoulder (Primary Dx) 11/17/2024 6:36 PM EDT - 11/17/2024 11:43 PM EDT Emergency [facility] [address] [place] [address] Kale Cabrera MD Discharge Disposition: Home or Self Care 11/13/2024 Telephone [facility] Orth[facility]ics & Sports Medicine [address] [place] [address] Brandee Vang RN Pain control 11/12/2024 12:48 PM EDT Anesthesia Event OR Admitting Dept - Virtual Department [address] [place] [address] May Camarillo MD 11/12/2024 12:35 PM EDT - 11/12/2024 2:23 PM EDT Surgery OR Admitting Dept - Virtual Department [address] [place] [address] Jalen Sweeney DO ARTHROSCOPIC REPAIR ROTATOR CUFF SHOULDER 11/12/2024 10:01 AM EDT - 11/12/2024 4:15 PM EDT Hospital Encounter OR Admitting Dept - Virtual Department [address] [place] [address] Jalen Sweeney DO Discharge Disposition: Home or Self Care 11/12/2024 Procedure Pass OR Admitting Dept - Virtual Department [address] [place] [address] 11/11/2024 8:00 AM EDT Pre-Admission Testing Pre Procedure Evaluation [address] [place] [address] Jalen Sweeney DO from Last 3 Months Social History Tobacco [...] AM EST Office Visit [facility] [address] [place] [address] Nikita Mireles PA-C [address] [place] [address] [place] [address] Karyna Aguirre, PT 8 [place] [address] 02/17/2025 10:00 AM EST Office Visit [facility] [address] [place] [address] Nikita Mireles PA-C [address] [place] [address] [place] [address] Karyna Aguirre, PT 8 [place] [address] 02/19/2025 1:00 PM EST Office Visit [facility] [address] [place] [address] Nikita Mireles PA-C [address] [place] [address] [place] [address] Karyna Aguirre, PT 8 [place] [address] 02/22/2025 10:00 AM EST Office Visit [facility] [address] [place] [address] Nikita Mireles PA-C [address] [place] [address] [place] [address] Karyna Aguirre, PT 8 [place] [address] 02/24/2025 10:45 AM EST Office Visit [facility] [address] [place] [address] Nikita Mireles PA-C [address] [place] [address] [place] [address] Karyna Aguirre, PT 8 [place] [address] 03/02/2025 2:00 PM EST Office Visit [facility] Orthopedics & Sports Medicine [address] [place] [address] [place] [address] Nikita Mireles PA-C [address] [place] [address] [place] [address] Health Maintenance Due Date Last Done Comments Adult Td,Tdap Booster 1986 DEPRESSION SCREENING 1998 HEPATITIS C SCREENING 2004 HIV ONE-TIME SCREENING (18-6 5 YEARS) 2004 PAP SMEAR 06/25/2007 INFLUENZA VACCINE (#1) 2024 COVID-19 VACCINE ( - 2024-2 6 season) 2024 SCREENING FOR [...] this topic Medical Devices Implanted Type Area Local Area Network Administrator Device Identifier Shelf Expiration Date Model / Serial / Lot Breast Breast Louisa All-Suture 1.8mm Q-Fix Knotless W/1 Ub Sut Bl - [id number] Implanted:Qty: 1 on 11/12/2024 by Jalen Sweeney DO at [facility] Right: Shoulder [employer] [id number] 07/18/2027 [id number] / / [id number] Louisa All-Suture 2.8mm Q-Fix W/2 Minitape Suture Blue And Cobraid White - [id number] Implanted:Qty: 1 on 11/12/2024 by Jalen Sweeney DO at [facility] Right: Shoulder [employer] 03/20/2027 [id number] / / [id number] Louisa Suture 4.5mm Arthroscopy Reelx Stt Peek Ss Core Knotless Shapr Tip Expandable Bx/5ea - [id number] Implanted:Qty: 1 on 11/12/2024 by Jalen Sweeney DO at [facility] Right: Shoulder [employer] [id number] 07/28/2026 [id number] / / [id number] Louisa Suture 4.5mm Arthroscopy Reelx Stt Peek Ss Core Knotless Shapr Tip Expandable Bx/5ea - [id number] Implanted:Qty: 1 on 11/12/2024 by Jalen Sweeney DO at [facility] Right: Shoulder [employer] [id number] 05/20/2026 [id number] / / [id number] Procedures Procedure Name Priority Date/Time Associated Diagnosis [...] AIRWAY PLACEMENT Routine 11/12/2024 2:[address] SURGICAL ARTHROSCOPY SHOULDER XTNSV DBRDMT 3+ 11/12/2024 12:48 PM EDT Labral tear of long head of right biceps tendon, sequela Traumatic incomplete tear of right rotator cuff, sequela Special Needs 05/19 W/C approval in chart ok to schedule KP3/11 LM to schedule KP CT SHLDR ARTHROSCOP,PART ACROMIOPLAS 11/12/2024 12:48 PM EDT Labral tear of long head of right biceps tendon, sequela Traumatic incomplete tear of right rotator cuff, sequela Special Needs 05/19 W/C approval in chart ok to schedule KP3/11 LM to schedule KP CT ARTHROSCOPY SHOULDER SURGICAL BICEPS TENODESIS 11/12/2024 12:48 PM EDT Labral tear of long head of right biceps tendon, sequela Traumatic incomplete tear of right rotator cuff, sequela Special Needs 05/19 W/C approval in chart ok to schedule KP3/11 LM to schedule KP CT SHLDR ARTHROSCOP,SURG,W/RO TAT CUFF REPR 11/12/2024 12:48 PM EDT Labral tear of long head of right biceps tendon, sequela Traumatic incomplete tear of right rotator cuff, sequela Special Needs 05/19 W/C approval in chart ok to schedule KP3/11 LM to schedule KP ANES BLOOD PATCH PERFORMABLE Routine 11/12/2024 12:[address] ANESTHESIA PERIPHERAL BLOCK PLACEHOLDER Routine 11/12/2024 12:25 PM EDT URINE HCG STAT 11/12/2024 10:19 AM EDT from Last 3 Months Results * CBC and differential (11/17/2024 9:54 PM EDT) WBC 10.34 4.00 - 11.00 K/uL [facility] RBC 4.28 4.00 - 5.20 M/uL [facility] HGB 12.4 12.0 - 16.0 g/dL [facility] HCT 37.2 36.0 - 46.0 % [facility] PLT 335 150 - 450 K/uL [facility] MCV 86.9 80.0 - 100.0 fL [facility] MCH 29.0 27.0 - 31.0 pg [facility] MCHC 33.3 32.0 - 36.0 g/dL [facility] RDW 12.0 11.5 - 14.5 % [facility] MPV 10.7 8.4 - 12.0 fL [facility] NRBC 0.00 0.00 /100 WBCs [facility] ABSOLUTE NRBC 0.00 0.00 K/uL [facility] DIFF METHOD Auto [facility] NEUTS 65.5 48.0 - 76.0 % [facility] LYMPHS 27.9 18.0 - 41.0 % [facility] MONOS 5.8 4.0 - 11.0 % [facility] EOS 0.3 0.0 - 5.0 % [facility] BASOS 0.2 0.0 - 1.5 % [facility] Granulocytes, immature (%) 0.3 0.0 - 0.9 % [facility] ABSOLUTE NEUTS 6.77 1.92 - 7.60 K/uL [facility] ABSOLUTE LYMPHS 2.89 0.72 - 4.10 K/uL [facility] ABSOLUTE MONOS 0.60 0.16 - 1.10 K/uL [facility] ABSOLUTE EOS 0.03 0.00 - 0.50 K/uL [facility] ABSOLUTE BASOS 0.02 0.00 - 0.15 K/uL [facility] Granulocytes, immature 0.03 0.00 - 0.09 K/uL [facility] Blood 11/17/2024 9:54 PM EDT 11/17/2024 9:57 PM EDT us Kale Cabrera MD LAB BLOOD BKR ORDMarixa SATNAM Final Result [address] [address] * Basic metabolic panel (11/17/2024 9:54 PM EDT) SODIUM 141 133 - 146 mmol/L [facility] CHLORIDE 106 96 - 108 mmol/L [facility] POTASSIUM 4.0 3.3 - 5.1 mmol/L [facility] CO2 23 21 - 35 mmol/L [facility] BUN 8 6 - 19 mg/dL [facility] CREATININE 0.50 0.5 - 1.5 mg/dL [facility] GLUCOSE 90 70 - 99 mg/dL [facility] CALCIUM 9.6 8.4 - 10.3 mg/dL [facility] EGFR >120 >59 mL/min/1.7 3m2 [facility] Comment:Estimated glomerular filtration rate calculated using the CKD-EPI refit equation. ANION GAP 16 10 - 20 mmol/L [facility] Blood 11/17/2024 9:54 PM EDT 11/17/2024 9:57 PM EDT us Kale Cabrera MD LAB BLOOD BKR WELLINGTONE SATNAM Final Result [address] [address] * (ABNORMAL) Urinalysis w/reflex Urine Culture (11/17/2024 9:50 PM EDT) COLOR Yellow Yellow [facility] CLARITY HAZY [facility] GLUCOSE Negative Negative [facility] BILI Negative Negative [facility] KETONES 1+(A) Negative [facility] SPECIFIC GRAVITY 1.015 1.005 - 1.030 [facility] BLOOD Trace(A) Negative [facility] PH 6.5 5.0 - 8.0 [facility] Protein-UA Negative Negative [facility] NITRITE Negative Negative [facility] Leukocyte esterase, ur 1+(A) Negative [facility] Urine (Urine) 11/17/2024 9:5 0 PM EDT 11/17/2024 10:11 PM EDT Kale Cabrera MD LAB URINE ORDERABL ES Final Result Performing Organization Address [facility] Co de Phone Number [address] [address] * (ABNORMAL) Urine Culture (11/17/2024 9:50 PM EDT) Special Requests None Reflexed from [id number] 11/17/2024 10:31 PM EDT [facility] Urine Culture >100,000 colony forming units per mL MIXED JOSELINE (3 OR MORE COLONY TYPES) Culture indicates contamination . Please resubmit if necessary.(A) 11/19/2024 7:47 AM EDT [facility] Urine 11/17/2024 9:50 PM EDT 11/17/2024 10:11 PM EDT Kale Cabrera MD LAB MICROBIOLOGY C ULTURE ORDERABLES Final Result [address] [address] * (ABNORMAL) Urine sediment (11/17/2024 9:50 PM EDT) WBC 11-20(A) NONE SEEN /hpf [facility] RBC 3-5(A) NONE SEEN /hpf [facility] URINE EPITHELIAL 21-49(A) NONE SEEN [facility] MUCUS 3+(A) NONE SEEN /hpf [facility] BACTERIA 2+(A) NONE SEEN /hpf [facility] 11/17/2024 9:50 PM EDT 11/17/2024 10:11 PM EDT us Kale Cabrera MD LAB URINE ORDERABL ES Final Result Performing Organization Address City/[facility]/ZIP Co de Phone Number [address] [address] * ECG 12-LEAD (11/17/2024 6:50 PM EDT) Ventricular Rate EKG/MIN 113 BPM [facility] Atrial Rate [address] [facility] [address] Interval 116 ms [facility] QRS Duration 76 ms [facility] QT Interval 328 ms [facility] QTC Interval 449 ms [facility] P [place] 37 degrees [facility] R Wave [place] 53 degrees [facility] T Wave [place] 41 degrees [facility] 11/17/2024 6:50 PM EDT 11/19/2024 9:18 AM EDT Narrative [facility] - 11/19/2024 9:18 AM EDT Sinus tachycardia Otherwise normal ECG When compared with ECG of 08-Oct-2024 16:39, No significant change was found Confirmed by Phong Mendez ([id number]) on 11/19/2024 9:18:11 AM us Ezequiel Mathew MD ECG ORDERABLES Final Result Performing Organization Address City/[facility]/ZIP Co de Phone Number [facility] * (ABNORMAL) POCT Glucose (11/17/2024 6:37 PM EDT) Glucose, POCT 160(H) 70 - 100 mg/dL [facility] 11/17/2024 6:37 PM EDT 11/18/2024 2:22 AM EDT us Kale Cabrera MD POINT OF CARE TEST ORDERABLES Final Result Performing Organization Address City/[facility]/ZIP Co de Phone Number [address] [address] * ANES ETT DOUBLE LUMEN - AIRWAY LDA (11/12/2024 2:40 PM EDT) Narrative Dennise Rodriguez CRNA - 11/12/2024 2:40 PM EDT Dennise Rodriguez CRNA 11/12/2024 2:41 PM Airway Placement Procedure Note: Procedure performed by: fellow/resident/SALES ADVISOR Anesthesiologist: May Camarillo MD Fellow/Resident/SALES ADVISOR: Dennise Rodriguez CRNA Airway procedure initiated at:11/12/2024 2:40 PM and ended at. Personal Protective Equipment: Mask: surgical mask Eye Protection: eye shield Gloves: double gloves Gown: no gown Mask Ventilation: Quality: not attempted Airway Placement: Technique: LMA Rapid sequence induction: no LMA Insertion: LMA size: 3 LMA placement attempts: 1. Outcomes: Evidence of dental injury? no Complications observed? no May Camarillo MD CT ANESTHESIA Final Resu lt * CT ANESTHESIA PERIPHERAL BLOCK PLACEHOLDER, ANES BLOOD PATCH PERFORMABLE (11/12/2024 12:25 PM EDT) Narrative Dennise Rodriguez CRNA - 11/12/2024 12:25 PM EDT Dennise Rodriguez CRNA 11/12/2024 12:47 PM Peripheral Block Placement Procedure Note: Start Time: 11/12/2024 12:25 PM Stop Time:11/12/2024 12:35 PM Reason for block: surgeon request and post op pain managment Block performed by: fellow/resident/FELIX Anesthesiologist: May Camarillo MD Fellow/Resident/SALES ADVISOR: Dennise Rodriguez CRNA [place] Protocol Performed: consent obtained, patient identified with [...] 5 ml intercostobrachial nerve us Dennise Rodriguez SALES ADVISOR CT ANESTHESIA F inal Result * HCG, urine (11/12/2024 10:19 AM EDT) URINE TEST Negative Negative [facility] Urine (Urine) 11/12/2024 10: 19 AM EDT 11/12/2024 10:22 AM EDT us Jalen Sweeney DO LAB URINE ORDERABLES Final Result Performing Organization Address City/State/[facility] Co de Phone Number [address] [address] from Last 3 Months Insurance [facility] [place] [address] [facility] [place] [address] [facility] [place] [address] [facility] INSURANCE Care Teams Hosting Engineer Relationship Specialty Start Date End Date Pcp, Not Required [address] [place] [address] PCP - General 11/09/15 Additional Source Comments The information contained in this document represents components of the legal health record. It is not the complete legal health record.[facility]
--- OUTSIDE RECORDS SUMMARY | 2025-02-10 16:23 | XMS_ITS | Encounter Summary ---
Author Organization [facility] Address [address] [place] [phone] Care Team Providers Care Bill Hiker Name Role Phone [facility] Primary Care Provider [phone] Reason for Visit * Reason Comments Hospital Discharge Follow Up Encounter Details Date Type Department Care Team (Late st Contact Info) Description 02/10/2025 Patient Outreach [facility] Call Center [address] [place] [phone] Alicia Atkins RN Hospital Discharge Follow Up Social History Tobacco Use Types Packs/Day Years Used Date Smoking Tobacco: Never PHQ-2 Answer Date Recorded PHQ-2 Total Score [...] money to buy more. Never true 02/03/20 25 Within the past 12 months, t he [...] things needed for daily living? No 02/02/2025 [facility] Utilities Answer Date Recorded In the past 12 months has Mayomi, gas, oil, or water company threatened to shut off services in your home? No 02/02/2025 Housing Stability Answer Date Recorded What is your living situation today? I have a [facility] place to live 02/02/2025 Housing Stability Not [...] on file documented as of this encounter Miscellaneous Notes * Telephone Encounter - Alicia Atkins RN - 02/10/2025 8:23 AM EST Copied from [facility] #[id number]. Topic: Discharge Patient Outreach - [place] >> Feb 10, 2025 8:23 AM Alicia Ga wrote: Outreach call for [place]. Alicia Atkins RN documented in this encounter Plan of Treatment Upcoming Encounters Date Type Department Care Team (Late st Contact Info) Description 02/11/2025 9:00 AM EST Office Visit [facility] [address] [facility] [place] [address] Katina Vasquez MD [address] [facility] 4 [place] [address] 02/22/2025 9:00 AM EST Office Visit [facility] at [address] [place] [address] [address] [facility] [address] [place] [address] Anand Robbins MD [address] [place] [address] documented as of this encounter Visit Diagnoses Not on filedocumented in this encounter Care Teams Bill Hiker Relationship Specialty Start Date End Date [facility] [address] [place] [address] PCP - General 01/31/25 documented as of this encounter
--- OUTSIDE RECORDS SUMMARY | 2025-02-10 16:24 | XMS_ITS | Encounter Summary ---
Author Organization [facility] Address [address] [place] [phone] Care Team Providers Care Human Resources Assistant Manager Name Role Phone [facility] Primary Care Provider [phone] Reason for Visit * Reason Onset Date Comments Appointment 02/08/2025 Encounter Details Date Type Department Care Team ([facility] st Contact Info) Description 02/08/2025 Telephone [facility] [address] [address] Quentin Bartlett MD [address] [place] [phone] Appointment Social History Tobacco Use Types Packs/Day [...] things needed for daily living? No 02/02/2025 [facility] Utilities Answer Date Recorded In the past 12 months has th e electric, gas, oil, or water company threatened to shut off services in your home? No 02/02/2025 Housing Stability Answer Date Recorded What is your living situation today? I have a [facility] place to live 02/02/2025 Housing Stability Not [...] encounter Miscellaneous Notes * Telephone Encounter - Quentin Bartlett MD - 02/08/2025 3:20 PM EST Patient underwent stent placement on 02/02, please arrange follow up with next [facility] endo or general urologist for definitive stone management, next 2-3 weeks. Thanks, Mario Bartlett documented in this encounter Plan of Treatment Upcoming Encounters Date Type Department Care Team (Late st Contact Info) Description 02/11/2025 9:00 AM EST Office Visit [facility] [address] [facility] [address] [place] [address] Katina Vasquez MD 35 [facility] 4 [place] [address] 02/22/2025 9:00 AM EST Office Visit [facility] at [address] [facility] [address] [facility] [address] [place], [place] [address] Anand Robbins MD [address] [place] [id number] documented as of this encounter Visit Diagnoses Not on filedocumented in this encounter Care Teams Human Resources Assistant Manager Relationship Specialty Start Date End Date [address] [address] PCP - General 01/31/25 documented as of this encounter
--- OUTSIDE RECORDS SUMMARY | 2025-02-10 16:24 | XMS_ITS ---
Author Organization [address] [address] Phone Care Team Providers Care Instrumentation Specialist Name Role Phone [facility] Primary Care Provider [phone] Post Discharge Outreach Status:First call unsuccessful (Active) Start date:02/09/2025 Enrollment date:02/10/2025 Enrollment reason:Inpatient observation discharge Case Team Name Relationship Phone Alicia Atkins RN(Responsible Staff) Case Manag er Continued Care and Services Coordination
== END 2025-02-10 14:46 | disposition home or self-care (01) ==
LOC: HO.ENCR 13:45
PROVIDERS: Visit Provider Student in an Organized Health Care Education/Training Program
DX: E05.90 Thyrotoxicosis, unspecified without thyrotoxic crisis or storm (principal)
CPT/HCPCS: 99204

== ENCOUNTER 2025-02-13 17:00 | Emergency (ER) | payer OTHER, SELFPAY ==
--- OUTSIDE RECORDS SUMMARY | 2014-04-13 10:28 | XMS_ITS | Continuity of Care Document ---
Author Organization [facility] Care Team Address [address] [place] [address] Phone Care Team Providers Care Mechanical Detailer Name Role Phone Provider1, First Unavailable Unavailable Advance Directives Directive Yes / No Effective Date File Name No Information Encounters Encounter Description Practice Location Reason(s) For Visit Diagnoses Date Provider Providers Copied on Encounter [facility] Team, [address] [place], [address], [place] tel:[phone] [facility] No Information Provider1 First. . Family History Family Member Type Diagnosis Age At Onset No Information Payers Payer name Insurance type Covered constitution party ID Authoriza tion(s) No Information Social History [...]
--- OUTSIDE RECORDS SUMMARY | 2024-09-07 11:34 | XMS_ITS | Continuity of Care Document ---
Author Organization [employer] Address [address] [place] [id number] Phone Care Team Providers Care Health Professor Name Role Phone Tiffanie Albarran MD Unavailable [...] dissolve, then swallow 4 MG - Active acetaminophen 325 mg tablet take 2 tablet by oral route every 6 hours as needed 650 MG - Active IBU 800 mg tablet take 1 tablet by ora l route 3 times every day with food 800 MG - Active Procedures Procedure Date Indiv.Psychotherapy [...] ESTAB PT 15 MIN Family Resource Counselor Real Estate Firm Manager Screen 010 URINE DIP NON-AUTO WITHOUT MICRO [...] Diagnoses Date Provider Providers Copied on Encounter [employer] [address] [place] [address], [id number] , [phone] [facility] No Information 5 Deion Moreno. [address], [place], [id number], . tel:[phone] Indiv.Psycho therapy 30 Minutes(16-3 7) [employer] [address] [place], [place], [id number] , [phone] [facility] Major depressive disorder, recurrent, unspecified 4 Reena Arce. [address] [place], [address], . tel:[phone] Referring Provider: Tiffanie Albarran, [address] [place] [address], [address]. tel:[phone] OFFICE/OUTPA TIENT VISIT EST PT 20-29 MINS [employer] [address] [place] [address], [id number] , [place] tel: [phone] [facility] Follow Up of Anxiety (chief complaint)MD Note (chief complaint) Body mass index (BMI) 24.0-24.9, adultGAD (generalized anxiety disorder) 4 Deion Moreno. [address] [place], [place], [id number], [place]. tel:[phone] Referring Provider: Tiffanie Albarran, [address] [facility], [place], [address]. tel:[phone] OFFICE/OUTPA TIENT VISIT EST PT 20-29 MINS [employer] [address] [place] [address], [id number] , [place] tel: [phone] [facility] letter (chief complaint)Anx iety (chief complaint) Anxiety and depression 4 [facility]. [address], [place], [address], [place]. tel:[phone] Referring Provider: Tiffanie Albarran, [address] [place], [place] [address], [place], [address]. tel:[phone] OFFICE VISIT ESTAB PT 30-39 MIN [employer] [address] [place] [address], [id number] , [place] tel: [phone] [facility] Work Letter (chief complaint) Depressive disorderBila teral leg weaknessGAD (generalized anxiety disorder)Mark sea and vomiting in adultKidney stones 3 Deion Moreno. [address] [place], [place], [id number], [place]. tel:[phone] Referring Provider: Tiffanie Albarran, Earnestine [facility] [place], [address]. tel:[phone] OFFICE VISIT ESTAB PT 40-54 MIN [employer] [address] [place] [address], [id number] , [place] tel:[phone] [facility] Anxiety (chief complaint)Tel ephone visit (chief complaint) Kidney stonesRight leg weaknessAnxi ety and depressionDe pression, unspecifiedS creening for diabetes mellitusScre ening cholesterol levelScreeni ng for thyroid disorderOthe r nursing home (current) drug therapy 3 Pasha Adriana. [address] [place], [address], [place]. tel:[phone] Referring Provider: Tiffanie Albarran, [address] [place], [address]. tel:[phone] OFFICE/OUTPA TIENT VISIT EST PT 20-29 MINS [employer] [address] [place] [address], [id number] , [place] tel: [facility] MD Note (chief complaint) Leg weakness, bilateral 3 Deion Moreno. [address], [place], [id number], [place]. tel:[phone] Referring Provider: Tiffanie Albarran, [address] [place], [address]. tel:[phone] OFFICE/OUTPA TIENT VISIT EST PT 20-29 MINS [employer] [address] [place] [address], [id number] , [place] tel: [phone] [facility] Right leg weakness (chief complaint)Tel ehealth (chief complaint) Weakness of right lower extremityRen al calculus 3 Khalif Rodriguez. [address] [place], [address], [place]. tel:[phone] Referring Provider: Tiffanie Albarran, [address] [place], [address]. tel:[phone] OFFICE/OUTPA TIENT VISIT EST PT 20-29 MINS [employer] [address] [place] [address], [id number] , [place] tel: [phone] [address] [place] [address] infertility (chief complaint)add (chief complaint) Infertility management 1 Nic Maya. [address] [place], [address], [place]. tel:[phone] Referring Provider: Tiffanie Albarran, [address] [place], [address]. tel:[phone] [employer] [address] [place] [address], [id number] , [place] tel: [address] [place] [address] No Information 0 Ulises you RN. [address] [place], [address], [place]. OFFICE/OUTPA TIENT VISIT, [employer], [address] [place] [address], [id number] , [place] tel: [address] [place] [address] Telehealth visit (chief complaint) Abdominal pain with vomitingVomi ting, unspecified 0 Jarod Mendoza. [address] [place], [address], [place]. tel:[phone] Referring Provider: Reji Olivera, [address] [place], [address]. tel:[phone] OFFICE/OUTPA TIENT VISIT, [employer], [address] [place] [address], [id number] , [place] tel: [facility] Vomiting (chief complaint) Body mass index (BMI) 22.0-22.9, adultGastroe nteritis 9 Jenn mR. [address] [place], [address], [place]. tel:[phone] Referring Provider: Sujey Barajas, [address] [place], [address]. tel:[phone] OFFICE/OUTPA TIENT VISIT, [employer], [address] [place] [address], [id number] , [place] tel: [facility] Follow Up of ED/Abdominal pain (chief complaint) Body mass index (BMI) 19.9 or less, adultCalculu s of kidney 9 Leisa Frias. [address] [place], [place], [id number], [place]. tel: [phone] Referring Provider: Rodriguez De La Fuente, [address] [facility] [place], [place], [address]. tel: [phone] [employer] [address] [place] [address], [id number] , [place] tel: [phone] [facility] examination 9 Anette Weldon. [address], [place], [place], [id number], [place]. tel: [phone] Referring Provider: Fatemeh Cheema, [address], [place], [address]. tel: [phone] [employer] [address] [place] [address], [id number] , [place] tel: [phone] [facility] examination 9 Anette Weldon. [address], [place], [place], [id number], [place]. tel: [phone] Referring Provider: Fatemeh Cheema, [address], [place], [address]. tel: [phone] [employer] [address] [place] [address], [id number] , [place] tel: [phone] [facility] examination 8 Anette Weldon. [address], [place], [place], [id number], [place]. tel: [phone] Referring Provider: Fatemeh Cheema, [address], [place], [address]. tel: [phone] [employer] [address] [place], [place], [id number] , [place] tel: [phone] [facility] examination Joshua Delaney. [address] [facility], [place], [address], [place]. tel:[phone] Referring Provider: Rhett Lewis, [address] [place], [address]. tel:[phone] [employer] [address] [place] [address], [id number] , [place] tel: [phone] [facility] examination 8 Anette Weldon. [address] [place], [place], [id number], [place]. tel:[phone] OFFICE/OUTPA TIENT VISIT, EST [employer] [address] [place] [address], [id number] , [place] tel:[phone] [facility] trying to conceive (chief complaint)Dys pareunia (chief complaint) Dyspareunia in female 8 Luigi Stuart. [address] [place], [address], [place]. tel:[phone] [employer], [address] [place] [address], [id number] , [place] tel: [phone] [facility] flu (chief complaint) Encounter for oth general cnsl and advice on contraceptio nEncounter for reversal of previous sterilizatio n 8 No Information OFFICE/OUTPA TIENT VISIT, EST [employer] [address] [place] [address], [id number] , [place] tel:[phone] [facility] Post-surgical Pain (chief complaint) Acute abdomen 8 Cardona Gina. [address] [place], [address], [place]. tel:[phone] Referring Provider: Kiko Hicks, [address] [place], [address]. tel:[phone] OFFICE VISIT ESTAB PT 25 MIN [employer] [address] [place] [address], [id number] , [place] tel: [phone] [facility] back pain (chief complaint) Other acute back pain 8 Konrad Katina. [address] [place] [address], [id number], [place]. tel:[phone] [employer] [address] [place] [address], [id number] , tel: [phone] [facility] examination 7 Odilon Castaneda. [address] [place] [address], [id number], [place]. tel:[phone] Referring Provider: Leonel Donald, [address] [place] [address], [address]. tel:[phone] [employer] [address] [place] [address], [id number] , tel: [phone] [facility] examination 7 Yfn Hanson. [address] [place] [address], [address], [place]. tel: [phone] Referring Provider: Margie Coulter, [address] [place] [address], [address]. tel: [phone] OFFICE VISIT ESTAB PT 25 MIN [employer] [address] [place] [address], [id number] , tel: [phone] [facility] Follow Up of Depression (chief complaint) Calculus of kidney with calculus of ureterMajor depressive disorder, single episode, unspecified Apr-0 4-201 7 Hofstetter Katherene. [address] [place] [address], [id number], [place]. tel:[phone] Referring Provider: Tayler Monte, [address] [place] [address], [address]. tel: [phone] OFFICE VISIT ESTAB PT 25 MIN [employer] [address] [place] [address], [id number] , [place] tel: [phone] [facility] Follow Up of Depression (chief complaint) Major depressive disorder, single episode, unspecified Mar-0 7-201 7 Hofstetter Katherene. [address] [place] [address], [id number], [place]. tel: [phone] Referring Provider: Tayler Monte, [address] [place] [address], [address]. tel:[phone] OFFICE VISIT ESTAB PT 25 MIN [employer] [address] [place] [address], [id number] , tel: [phone] [facility] Follow Up of Depression (chief complaint) Major depressive disorder, recurrent, unspecified 7 Oniel Lang. [address] [place] [address], [id number], [place]. tel: [phone] Referring Provider: Tayler Monte, [address] [place] [address], [address]. tel:[phone] Indiv.Psycho therapy 45 Minutes [employer] [address] [place] [address], [id number] , tel: [facility] Anxiety (chief complaint)Dep ression (chief complaint)Str essed (chief complaint)Sle ep disturbance (chief complaint) Major depressive disorder, recurrent, unspecifiedP ost-traumati c stress disorder, chronic 7 [place], [address], [place]. tel:[phone] Referring Provider: Tayler Monte, [address] [place] [address], [address]. tel:[phone] OFFICE/OUTPA TIENT VISIT, [facility] [employer] [address] [place] [address], [id number] , [place] tel: [phone] [facility] Follow Up of Depression (chief complaint) Depression 7 Oniel Lang. [address] [place] [address], [id number], [place]. tel: [phone] Referring Provider: Tayler Monte, [address] [place] [address], [address]. tel:[phone] OFFICE/OUTPA TIENT VISIT, [facility] [employer] [address] [place] [address], [id number] , tel: [facility] Follow Up of Depression (chief complaint) Major depressive disorder, recurrent, unspecified Dec-1 6- 6 Lavell Lester. [address] [place] [address], [id number], [place]. tel:[phone] Referring Provider: Tayler Monte, [address] [place] [address], [address]. tel:[phone] OFFICE/OUTPA TIENT VISIT, [employer] [address] [place] [address], [id number] , [place] tel: [facility] Follow Up of Depression (chief complaint) Major depressive disorder, recurrent, unspecifiedL eft flank pain Dec-0 9- 6 Lavell Lester. [address] [place] [address], [id number], [place]. tel:[phone] Referring Provider: Tayler Monte, [address] [place] [address], [address]. tel:[phone] OFFICE/OUTPA TIENT VISIT, [employer], [address] [place] [address], [id number] , tel: [facility] depression (chief complaint) Depression Dec-0 6 Khalif Rodriguez. [address] [place], [address], [place]. tel: [phone] Referring Provider: Tayler Monte, [address] [place] [address], [address]. tel:[phone] OFFICE/OUTPA TIENT VISIT, [employer] [address] [place], [place], [id number] , [place] tel: [phone] [facility] Follow Up of Depression (chief complaint) Major depressive disorder, recurrent, unspecifiedE pigastric painLeft flank pain Nov-2 3- 6 Lavell Lester. [address] [place] [address], [id number], [place]. tel:[phone] Referring Provider: Tayler Monte, [address] [place] [address], [address]. tel:[phone] OFFICE/OUTPA TIENT VISIT, [employer], [address] [place] [address], [id number] , [place] tel: [phone] [facility] Follow Up of Depression (chief complaint) Major depressive disorder, recurrent, unspecified 6 Lavell Lester. [address] [place] [address], [id number], [place]. tel:[phone] Referring Provider: Tayler Monte, [address] [place] [address], [address]. tel:[phone] [employer] [address] [place] [address], [id number] , tel:[phone] [facility] Depression (chief complaint)Sle ep disturbance (chief complaint)Harvinder etite loss (chief complaint) Major depressive disorder, recurrent, unspecified 6 [place], [address], [place]. tel: [phone] Referring Provider: Tayler Monte, [address] [place] [address], [address]. tel:[phone] OFFICE/OUTPA TIENT VISIT, [employer], [address] [place] [address], [id number] , [place] tel: [phone] [facility] Follow Up of Depression (chief complaint) Depression, unspecified depression typeLeft flank pain 6 Lavell Lester. [address] [place] [address], [id number], [place]. tel:[phone] Referring Provider: Tayler Monte, [address] [place] [address], [address]. tel:[phone] OFFICE/OUTPA TIENT VISIT, [employer], [address] [place] [address], [id number] , [place] tel: [phone] [facility] Follow Up of Depression (chief complaint)Fol low Up of gastritis (chief complaint) Depression, unspecified depression type Sep-2 3-201 6 Monte Tayler. [address] [place] [address], [id number], [place]. tel:[phone] Referring Provider: Tayler Monte, [address] [place] [address], [address]. tel:[phone] [employer] [address] [place] [address], [id number] , [place] tel: [phone] [facility] examination Sep-2 0-201 6 Donald Leonel. [address] [place] [address], [id number], [place]. tel:[phone] Referring Provider: Margie Coulter, [address] [place] [address], [address]. tel: [phone] OFFICE VISIT ESTAB PT 25 MIN [employer], [address] [place] [address], [id number] , [place] tel: [phone] [facility] Follow Up of ER (chief complaint)Dep ression (chief complaint)abd ominal pain (chief complaint) Depression, unspecified depression typeEpigastr ic pain Sep-0 9-201 6 Lavell Tayler. [address] [place] [address], [id number], [place]. tel:[phone] Referring Provider: Tayler Monte, [address] [place] [address], [address]. tel:[phone] [employer] [address] [place] [address], [id number] , [place] tel: [phone] [facility] examination Noel- 5-201 5 Donald Leonel. [address] [place] [address], [id number], [place]. tel:[phone] Referring Provider: Tayler Monte, [address] [place] [address], [address]. tel:[phone] OFFICE VISIT ESTAB PT 25 MIN [employer] [address] [place] [address], [id number] , [place] tel: [phone] [facility] abdominal pain (chief complaint) UTI (lower urinary tract infection) 5 Jacquelin Alarcon. [address], [place], [id number], [place]. tel: [phone] Referring Provider: Tayler Monte, [address] [place] [address], [address]. tel:[phone] OFFICE VISIT ESTAB PT 25 MIN [employer] [address] [place] [address], [id number] , [place] tel: [phone] [facility] Kidney stones (chief complaint) Abdominal pain, left lower quadrantCalc ulus of kidneyVomiti ng 5 Lavell Lester. [address] [place] [address], [id number], [place]. tel:[phone] Referring Provider: Tayler Monte, [address] [place] [address], [address]. tel:[phone] OFFICE VISIT ESTAB PT 25 MIN [employer] [address] [place] [address], [id number] , [place] tel: [phone] [facility] Abdominal pain (chief complaint) Abdominal Pain 5 Daryl Manzo. [address] [place], [address], [place]. tel: [phone] Referring Provider: Anais Brito, [address] [place], [address]. tel: [phone] OFFICE/OUTPA TIENT VISIT, EST [employer] [address] [place] [address], [id number] , [place] tel: [phone] [facility] finger pain (chief complaint)LLQ pain (chief complaint) Finger painLeft flank pain 4 Lavell Lester. [address] [place] [address] [place], [id number], [place]. tel:[phone] Referring Provider: Tayler Monte, [address] [place], [address]. tel:[phone] [employer] [address] [place] [address], [id number] , [place] tel: [phone] [facility] examination 4 Murtaza Darling. [address] [place] [address], [id number], [place]. tel: [phone] [employer] [address] [place] [address], [id number] , [place] tel: [phone] [facility] examination 4 Luiz Barillas. [address] [place] [address], [address], [place]. tel: [phone] [employer] [address] [place] [address], [id number] , [place] tel: [phone] [facility] Screening examination for pulmonary tuberculosis 4 Lavell Lester. [address] [place] [address], [id number], [place]. tel:[phone] OFFICE VISIT ESTAB PT 25 MIN [employer] [address] [place] [address], [id number] , [place] tel: [phone] [facility] Decreased Appetite (chief complaint) Weight gainAbnormal weight gainAsthmaCo ntraceptionA bnormal weight gainAsthmaUn specified contraceptiv e management 4 Lavell Lester. [address] [place] [address], [id number], [place]. tel:[phone] [employer] [address] [place] [address], [id number] , US tel: [phone] [facility] examination 4 Yfn Hanson. [address] [place] [address], [address], [place]. tel: [phone] OFFICE VISIT ESTAB PT 25 MIN [employer] [address] [place] [address], [id number] , [place] tel:[phone] [facility] vomiting (chief complaint) Abdominal Pain 4 [facility] Dorian. [address], [place], [id number], [place]. tel:[phone] [employer] [address] [place], [place], [id number] , [place] tel:[phone] [facility] examination 4 [facility] [place]. [address] [place], [address], . tel:[phone] [employer] [address] [place] [address], [id number] , [place] tel:[phone] [facility] examination 3 [facility] [place]. [address] [place], [address], [place]. tel:[phone] OFFICE VISIT ESTAB PT 25 MIN [employer] [address] [place] [address], [id number] , [place] tel:[phone] [facility] LUQ pain (chief complaint)col d symptoms (chief complaint) Upper Respiratory Infection, Acute 3 Boy Angel. [address] [place], [address], [place]. [phone] OFFICE VISIT ESTAB PT 15 MIN [employer] [address] [place] [address], [id number] , [place] tel:[phone] [facility] stomach pain (chief complaint) H. pylori duodenitisHe licobacter pylori (H. pylori)Duode nitis (without mention of hemorrhage)H elicobacter pylori (h. pylori) infection 3 [facility] Dorian. [address], [place], [id number], [place]. [phone] [employer] [address] [place], [place], [id number] , [place] tel: [facility] AsthmaMigrai neGastritis and duodenitisDe pressionH/O renal calculiH/O tubal ligation 3 Mayra Dionicio. [address] [place], [place], [id number], [place]. tel:[phone] OFFICE VISIT ESTAB PT 25 MIN [employer] [address] [place] [address], [id number] , [place] tel: [phone] [facility] abdominal discomfort (chief complaint) Nephrolithia sisCalculus of kidneyVomiti ng alone 3 [facility] as Dorian. [address], [place], [id number], [place]. tel:[phone] OFFICE VISIT ESTAB PT 25 MIN [employer] [address] [place] [address], [id number] , [place] tel: [facility] abdominal discomfort (chief complaint) Nephrolithia sisCalculus of kidneyVomiti ng alone 3 [facility] as Dorian. [address], [place], [id number], [place]. tel:[phone] [employer] [address] [place] [address], [id number] , [place] tel: [phone] [facility] examination 2 Yfn Hanson. [address] [place], [address], [place]. tel: [phone] [employer] [address] [place] [address], [id number] , [place] tel: [phone] [facility] contraception - desires temporary solution (chief complaint) Surveillance of other contraceptiv e method 2 Luigi Stuart. [address] [place], [address], [place]. tel:[phone] [employer] [address] [place] [address], [id number] , [place] tel: [phone] [facility] Depo Injection (chief complaint) Surveillance of other contraceptiv e methodOther general counseling and advice on contraceptiv e management 2 No Information OFFICE VISIT ESTAB PT 15 MIN [employer] [address] [place] [address], [id number] , [place] tel:[phone] [facility] ER (chief complaint) Anorexia 2 Jenn Sujey. [address] [place], [address], [place]. tel:[phone] OFFICE VISIT ESTAB PT 15 MIN [employer] [address] [place] [address], [id number] , [place] tel:[phone] [facility] anorexia (chief complaint) AnorexiaAnor exiaFamily planning servicesAnor exiaOther general counseling and advice on contraceptiv e management 2 Jenn Sujey. [address] [place] [address], [address], [place]. tel:[phone] OFFICE VISIT ESTAB PT 15 MIN [employer] [address] [place] [address], [id number] , [place] tel: [phone] [facility] release form (chief complaint)kid rick stones (chief complaint) Nephrolithia sisCalculus of kidney 2 Jenn Sujey. [address] [place], [address], [place]. tel:[phone] OFFICE VISIT ESTAB PT 15 MIN [employer] [address] [place] [address], [id number] , [place] tel:[phone] [facility] R flank pain (chief complaint) Renal colic 2 Christopher Vaibhav. [address] [place], [place], [id number], [place]. tel:[phone] OFFICE VISIT ESTAB PT 10 MIN [employer] [address] [place] [address], [id number] , [place] tel:[phone] [facility] Wants to establish PCP (chief complaint)col d symptoms (chief complaint) Respiratory Abnormality, OtherCoughCo ugh 2 Jenn Sujey. [address] [place] [address], [address], [place]. tel: [phone] OFFICE VISIT ESTAB PT 25 MIN [employer] [address] [place] [address], [id number] , [place] tel: [phone] [facility] UTI (chief complaint) Renal colicCalculu s of kidneyCalcul us of kidneyRenal colic 2 Christopher Vaibhav. [address] [place], [place], [id number], [place]. tel: [phone] OFFICE VISIT ESTAB PT 10 MIN [employer] [address] [place] [address], [id number] , [place] tel: [phone] [facility] back pain (chief complaint) Renal colicRenal colic 2 Jenn Sujey. [address] [place] [address], [address], [place]. tel:[phone] OFFICE VISIT ESTAB PT 25 MIN [employer] [address] [place] [address], [id number] , [place] tel: [phone] [facility] back pain (chief complaint) Renal calculus 2 Mayra Dionicio. [address] [place], [place], [id number], [place]. tel:[phone] [employer] [address] [place] [address], [id number] , US tel: [phone] [facility] examination 1 Yfn Hanson. [address] [place], [address], [place]. tel: [phone] [employer] [address] [place] [address], [id number] , [place] tel: [phone] [facility] Major depressive affective disorder, single episode, unspecified degreeFAMILY DISRUPTION NEC 1 Fady Gabriel. , [place], [place]. OFFICE VISIT ESTAB PT 15 MIN [employer] [address] [place] [address], [id number] , [place] tel:+ [phone] [facility] depression (chief complaint)tyler n (chief complaint)cesar ght loss (chief complaint) Depression Dec-0 1 Christopher Esposito. [address] [place], [place], [id number], [place]. tel:[phone] OFFICE VISIT ESTAB PT 25 MIN [employer] [address] [place] [address], [id number] , [place] tel: [phone] [facility] kidney stones / er (chief complaint)abd ominal discomfort (chief complaint) Kidney stonesHelico bacter pylori ab+Seasonal allergies Sep-2 1 Mayra Greenberg. [address] [place] [address], [id number], [place]. tel: [phone] [employer] [address] [place] [address], [id number] , [place] tel: [phone] [facility] examination Nov-0 1 Luiz Barillas. [address] [place] [place] [address], [id number], [place]. tel:[phone] OFFICE VISIT ESTAB PT 25 MIN [employer] [address] [place] [address], [id number] , [place] tel: [phone] [facility] discuss Depo (chief complaint) Loss of weightOther general counseling and advice on contraceptiv e management 3 1 Luigi Stuart. [address] [place] [address], [address], [place]. tel: [phone] OFFICE VISIT ESTAB PT 25 MIN [employer] [address] [place] [address], [id number] , [place] tel: [phone] [facility] vomiting (chief complaint)abd ominal discomfort (chief complaint) Abdominal pain UNSPCF SITEVomiting Nausea & vomitingLoss of weightUrinar y Tract InfectionCon stipation 0 1 Mayra Greenberg. [address] [place] [address], [id number], [place]. tel:[phone] OFFICE VISIT ESTAB PT 25 MIN [employer] [address] [place] [address], [id number] , [place] tel: [facility] cold symptoms (chief complaint)vom iting (chief complaint) Upper Respiratory Infection, AcuteAsthmaA norexia 1 Dalila Brown. [address] [place] [address], [id number], . tel:[phone] [employer] [address] [place] [address], [id number] , tel: [phone] [facility] No Information Nov-0 7- 0 No Information VISIT [employer] [address] [place] [address], [id number] , [place] tel: [facility] vaginal discharge (chief complaint) No Information Oct-2 0 Luigi Stuart. [address] [place] [address], [address], [place]. tel:[phone] [employer], [address] [place] [address], [id number] , tel: [facility] BP monitoring (chief complaint) Nonspecific low blood pressure reading Oct- 0 No Information VISIT [employer] [address] [place] [address], [id number] , tel: [phone] [facility] No Information Oct- 0 Luigi Stuart. [address] [place], [address], [place]. tel:[phone] VISIT [employer], [address] [place] [address], [id number] , [place] tel: [phone] [facility] No Information Oct-1 0-201 0 Luigi Stuart. [address] [place], [address], [place]. tel:[phone] VISIT [employer] [address] [place] [address], [id number] , tel: [phone] [facility] No Information Aug-0 3-201 0 Luigi Stuart. [address] [place], [address], [place]. tel:[phone] VISIT [employer] [address] [place] [address], [id number] , [place] tel: [facility] vaginal discharge (chief complaint) No Information 3 0-201 0 Meyers Narciso. [address] [place] [address], [id number], [place]. tel:[phone] VISIT [employer] [address] [place] [address], [id number] , [place] tel: [phone] [facility] No Information 7-201 0 Meyersluz elena Stuart. [address] [place] [address], [address], [place]. tel:[phone] VISIT [employer] [address] [place] [address], [id number] , [place] tel: [facility] No Information 3-201 0 Meyersluz elena Stuart. [address] [place] [address], [address], [place]. tel:[phone] VISIT [employer] [address] [place] [address], [id number] , [place] tel: [phone] [facility] No Information 0 1-201 0 Meyers Narciso. [address] [place] [address], [address], [place]. tel:[phone] VISIT [employer] [address] [place] [address], [id number] , [place] tel: [phone] [facility] back pain (chief complaint) No Information 2-201 0 Belle Christine. [address] [place] [address], [address], [place]. tel:[phone] [employer] [address] [place] [address], [id number] , [place] tel: [phone] [facility] examination 6-201 0 No Information VISIT [employer] [address] [place] [address], [id number] , US tel: [phone] [facility] No Information 3-201 0 Belle Christine. [address] [place], [address], [place]. tel:[phone] [employer] [address] [place] [address], [id number] , [place] tel:+ [phone] [facility] examination May- 2-201 0 No Information VISIT [employer] [address] [place] [address], [id number] , [place] tel: [phone] [facility] vomiting (chief complaint)difatemeh ziness (chief complaint) No Information 1-201 0 Belle Christine. [address] [place], [address], [place]. tel:[phone] [address] [place] [address], [id number] , [place] tel: [phone] [facility] examination May-0 5-201 0 No Information OFFICE VISIT ESTAB PT 15 MIN [employer] [address] [place] [address], [id number] , [place] tel: [phone] [facility] vomiting (chief complaint) Mild hyperemesis gravidarum, antepartum Feb-2 3-201 0 Walser Nanci. [address] [place], [address], [place]. tel:[phone] [employer] [address] [place] [address], [id number] , [place] tel: [phone] [facility] examination Apr-2 2-201 0 No Information OFFICE VISIT ESTAB PT 15 MIN [employer] [address] [place] [address], [id number] , [place] tel: [phone] [facility] vomiting (chief complaint) Mild hyperemesis gravidarum, antepartum Feb-0 8-201 0 Walser Nanci. [address] [place], [address], [place]. tel:[phone] [address] [place] [address], [id number] , [place] tel: [phone] Administrati on - [facility] No Information 0 Services Social. , [place], [address], [place]. [employer] [address] [place] [address], [id number] , tel:+ [phone] [facility] OB Intake (chief complaint) Other specified counseling 0 Katrin Ramon. [address] [place] [address], [address], [place]. tel:[phone] [employer], [address] [place] [address], [id number] , [place] tel:+ [phone] [facility] OB INTAKE (chief complaint) No Information 0 No Information OFFICE VISIT ESTAB PT 25 MIN [employer] [address] [place] [address], [id number] , [place] tel:+ [phone] [facility] nausea (chief complaint) No Information 0 Luigi Cerdaele. [address] [place] [address], [address], [place]. tel:[phone] [employer], [address] [place] [address], [id number] , [place] tel:+ [phone] [facility] examination 0 No Information [employer] [address] [place] [address], [id number] , [place] tel:[phone] [facility] Test (chief complaint) No Information 0 No Information [employer], [address] [place] [address], [id number] , [place] tel:[phone] [facility] examination Dec-3 0-200 9 No Information [employer] [address] [place] [address], [id number] , [place] tel:+ [phone] [facility] examination Dec-2 3-200 9 No Information [employer] [address] [place] [address], [id number] , [place] tel:+ [phone] [facility] examination Dec-2 2200 9 No Information OFFICE VISIT ESTAB PT 10 MIN [employer] [address] [place], [place], [id number] , [place] tel:+ [phone] [facility] Vaccine (chief complaint) Other reasons for seeking consultation Dec-0 3200 9 No Information OFFICE VISIT ESTAB PT 15 MIN [employer] [address] [place] [address], [id number] , [place] tel:+ [phone] [facility] seeking preg. (chief complaint) PROCR MGMT CNSL/ADV NEC Sep-2 9-200 9 Belle Christine. [address] [place], [address], [place]. tel:[phone] OFFICE VISIT ESTAB PT 15 MIN [employer] [address] [place] [address], [id number] , [place] tel: [phone] [facility] excessive sweats under arm (chief complaint)abd ominal discomfort (chief complaint) Abdominal pain, unspecified siteAbdomina l pain, unspecified siteASTHMA,U NSPECIFIED TYPE, UNSPECIFIEDP rimary focal hyperhidrosi sAnemia, unspecified Sep-0 4200 9 [facility]. [address] [place] [address], [id number], . tel:[phone] OFFICE VISIT ESTAB PT 25 MIN [employer] [address] [place] [address], [id number] , [place] tel:+ [phone] [facility] acute pelvic pain (chief complaint)vom itigx4 today (chief complaint) Abdominal pain, unspecified site Noel-0 2200 9 No Information OFFICE VISIT ESTAB PT 10 MIN [employer] [address] [place] [address], [id number] , [place] tel:[phone] [facility] LLQ pain (chief complaint) Abdominal pain, left lower quadrant German-1 6200 9 [facility]. [address] [place] [address], [id number], . tel:+ [phone] OFFICE VISIT ESTAB PT 15 MIN [employer] [address] [place] [address], [id number] , [place] tel:+ [phone] [facility] IUD insertion (chief complaint) Other specified contraceptiv e management Dec-2 0-200 8 Meyers Narciso. [address] [place] [address], [address], [place]. tel:[phone] OFFICE VISIT ESTAB PT 15 MIN [employer] [address] [place] [address], [id number] , [place] tel: [phone] [facility] vomiting (chief complaint)abd ominal discomfort (chief complaint) No Information Sep-0 7-200 8 No Information OFFICE VISIT ESTAB PT 10 MIN [employer] [address] [place] [address], [id number] , [place] tel: [phone] [facility] vomiting (chief complaint)diz ziness (chief complaint) No Information May-3 1200 8 No Information OFFICE VISIT ESTAB PT 15 MIN [employer] [address] [place] [address], [id number] , [place] tel: [phone] [facility] diarrhea, black stools (chief complaint)vom iting (chief complaint) No Information May-1 0-200 8 No Information [employer] [address] [place] [address], [id number] , [place] tel: [phone] [facility] No Information Dec- 0-200 7 Catalina Lion. , [place], [place]. Consulting Provider: Amisha Arnold [place]. [employer] [address] [place] [address], [id number] , [place] tel: [phone] [facility] No Information Dec-0 1-200 7 Murtaza Perezen. [address] [place] [address], [id number], [place]. tel:[phone] [employer] [address] [place] [address], [id number] , US tel: [phone] [facility] No Information Sep-2 6-200 7 No Information [employer] [address] [place] [address], [id number] , [place] tel: [phone] [facility] No Information Sep-1 8-200 7 No Information [employer] [address] [place], [place], [id number] , [place] tel: [phone] [facility] No Information 5-200 7 No Information [facility]IT [facility] [address] [place] [address], [id number] , [place] tel: [phone] [facility] No Information Aug-0 7-200 7 No Information ASSESSMENT [facility] [employer] [address] [place] [address], [id number] , [place] tel: [phone] [facility] No Information 9200 7 Kellyser Nanci. [address] [place], [address], [place]. tel: [phone] VISIT [employer] [address] [place] [address], [id number] , [place] tel: [phone] [facility] No Information 7200 7 No Information VISIT [facility] [employer] [address] [place] [address], [id number] , [place] tel: [phone] [facility] No Information 7 Kellyser Nanci. [address] [place], [address], [place]. tel:[phone] OFFICE VISIT ESTAB PT 15 MIN [employer] [address] [place] [address], [id number] , [place] tel: [facility] No Information 8200 7 [facility]. [address] [place] [address], [id number], [place]. tel:[phone] OFFICE VISIT ESTAB PT 40 MIN [employer] [address] [place] [address], [id number] , [place] tel: [phone] [facility] No Information 4200 7 Kellyser Nanci. [address] [place], [address], [place]. tel: [phone] ASSESSMENT [facility] [employer] [address] [place] [address], [id number] , tel: [phone] [facility] No Information 7 No Information [employer], [address] [place] [address], [id number] , tel:+ [phone] [facility] No Information Services Social. , [place], [place], [facility], . OFFICE VISIT ESTAB PT 15 MIN [employer], [address] [place] [address], [id number] , tel:+ [phone] [facility] No Information 7 No Information [employer], [address] [place] [address], [id number] , tel:+ [phone] [facility] Anemia, unspecifiedA STHMA,UNSPEC IFIED TYPE, UNSPECIFIED No Information Family History Family Member Type Diagnosis Age At Onset Mother Problem (finding) renal stone Sister Problem (finding) asthma Father Problem (finding) asthma Sister Problem (finding) asthma Sister Problem (finding) Alive and well Brother Problem (finding) Alive and well Brother Problem (finding) Alive and well Immunizations Vaccine Date Status Comments Flu Vaccine ([id number]) administered Sour ce: New Immunization Record Flu (age 3 and above) administered Note: VIS given, S/E and contraindications reviewed, denies allergies ; Source: New Immunization Record hep B (ped/adol, 3 dose) administered Nicole rce: New Immunization Record Payers Payer name Insurance type Covered alliance party ID Authoriza tion(s) [facility] [employer] [place] [id number] Medicaid [id number] [facility] [employer] [place] [id number] [facility] [employer] [place] [id number] Social History Type Description Quantity Date Captured [...] due Goal Hepatitis C screening due Goal Lifestyle education regardin g diet completed Goal Depression Scree nabila. Due on due Goal Unhealthy drug use screening due Goal Hepatitis C screening due Goal Pap/HPV testing. Due on due Goal Hepatitis C scre [...] C scre ening. Due on due Goal Unhealthy drug use screening due Goal Pap/HPV testing. Due on due Goal Depression Scree nabila. Due on due Goal Pap/HPV testing. Due on due Goal Hepatitis C scre ening. Due on due Goal Depression Scree nabila. Due on due Goal Unhealthy drug use screening due Goal Hepatitis C Screen due Goal Pap/HPV testing. Due on due Goal HPV. Due on [...] nt education, guidance, and counseling completed Goal Pap/HPV testing. Due on due Goal [...] Td vaccine. Due on 19 due Goal PHQ9. Due on due Goal Pap/HPV testing. Due on due Goal Suicide risk ass essment. Due on due Goal Depression scree nabila. Due on due Goal Td vaccine. Due [...] Td vaccine. Due on 16 due Goal Suicide risk ass essment. Due on due Goal Tobacco cessation counseling completed Goal Td vaccine. Due on 16 due Goal Influenza vaccin e. Due on [...] [facility] To: [facility] [address] [place] [address], [id number] Ordered: Referrals: Obstetrics and Gynecology. [facility] [...] Order: Lab Order TSH Base line KH (399), Ordered on: Ordered Future Order: Lab Order Vitamin D 25 Hydroxy Level ([id number]), Ordered on: Ordered Future Order: Lab Order Urinalys is That Reflexes To Microscopic (1162), Ordered on: Ordered Future Order: Lab Order Magnesiu m Level (369), Ordered on: Ordered Future Order: Lab Order STOOL CU LTURE ([id number]), Ordered on: Ordered Future Order: Radiol ogy Order MRI: Thoracic Spine (MRITSPINE), Sent on: Sent Future Order: Radiol ogy Order US (Ultrasound): (US), Appointment on: , Sent on: Sent Future Order: Lab Order CREATINI NE/CR ([id number]), Ordered on: Ordered Future Order: Lab Order Urinalys is ([id number]), Ordered on: Ordered Future Order: Lab Order Helicoba ct H Pylori Breath ([id number]), Ordered on: Ordered Future Order: Radiol ogy Order US ABD COMP, 09882 (US ABD COM), Ordered on: Ordered Future Order: Radiol ogy Order RAD EXAM FINGER(S) 2V, [id number] (XR FINGER), Ordered on: Ordered Future Order: Radiol ogy Order US ABD COMP, 46350 (US ABD Tackle Grab), Appointment on: , Sent on: Sent Future Order: Lab Order HELICOBA CTER FECAL ([id number]), Ordered on: Ordered Future Order: Lab Order STOOL CU LTURE ([id number]), Ordered on: Ordered Future Order: Lab Order HELICOBA CTER PYLORI - IGG ([id number]), Ordered on: Ordered Future Order: Lab Order TISSUE T RANSGLUTINASE IGG (2377), Ordered on: Ordered Future Order: Lab Order TISS TRA NSGLUTAMINASE IGA (1334), Ordered on: Ordered Future Order: Lab Order CBC (W D IFF AND PLATELET) (1979), Sent on: Sent Future Order: Lab Order SCREEN F OR BETA HEMOLYTIC STREP B (5022), Appointment on: , Sent on: Sent Future Order: Lab Order Urine Di pstick ([id number]), Appointment on: Ordered Future Order: Lab Order FOBT Yesi gnostic ([id number]), Appointment on: Ordered Future Order: Lab Order AFP Quad ([id number]), Appointment on: , Sent on: Sent Future Order: Lab Order Urine Di pstick ([id number]), Appointment on: Ordered Future Order: Lab Order Urine Pr egnancy Test ([id number]), Appointment on: Ordered Future Order: Lab Order Urine Pr egnancy Test ([id number]), Appointment on: Ordered Future Order: Lab Order Urine Pr egnancy Test ([id number]), Appointment on: Ordered Future Order: Lab Order [...] Order: Lab Order Urine Pr egnancy Test ([id number]), Appointment on: Ordered Future Order: Lab Order Urine Di pstick ([id number]), Appointment on: Ordered Future Order: Lab Order Urine Pr egnancy Test ([id number]), Appointment on: Ordered Future Order: Lab Order Urine Pr egnancy Test ([id number]), Appointment on: Ordered History Of Present Illness Encounter Date Complaint History Of Prese nt Illness Note BH warm hand off done todayPt states her anxiety is out of controlShe vomits daily due to anxietyStopped going to PT for leg weakness, has not made neuro appointmentDoes not have her voicemail set up Follow Up of Anxiety Comments: Pt has had ongoing anxiety and [...] change in tone when speaking about baby letter Pt in need of le tter to cover dates missed since last disability letter ended.Last letter ended 03/22/23Pt has follow up with PCP 04/01/23 but cannot wait until that time due to work threatening to fire her Anxiety This is a follow up visit. [...] weightHas 1 year old daughter at home Telephone visit pt agreed to TV due to pandemic Anxiety This is an initi al visit. [...] medication, pt is seeking to start medication. Note #Back Pain- weak ness in legs [...] COVID-19 pandemic. Patient at home for visit. Right leg weakness Patient was s een at [facility] for left flank pain and was found to have right leg weakness while in the ER. Patient reports pain rating 7/10, describing the pain as sharp in nature. Additionally, the patient reports experiencing numbness and tingling sensation in her feet. She expresses difficulty with walking and is requesting a referral for physical therapy.OSTEOPATHIC PHYSICIAN note: pt was seen Neurology in the Hospital. MRI of th e brain, cervical/thoracic/lumber spine were all normal. Labs were also normal. No definite etiology for her right leg weakness causing her to have trouble walking was found. Pt was refer to physical therapy for rehabilitation. pt requesting referral to physical therapy Telehealth Patient has cons ented to this phone visit during pandemic. infertility The age of menar paula onset was 14. Patient not . : 3. Parity: Term: 1. Pre-Term: 1. : 1. Livin. The patient's relevant history is negative for hypertension, obesity, oral contraceptive use and .Additional information: pt is requesting a referral for IVF treatments states she has been trying for the past 5 years. add Pt has upcoming appt with compound coating machine offbearer Dr. Phong Griffith, out of [facility] on 01/09 reports office needs a referral. Pt also wanted to share that she has [employer] insurance. . The telephone visit was conducted during the pandemic. Patient consented to telephone visit todayTime of visit 15 min Telehealth visit The symptoms be reilly 2 days ago. Aggravating factors include --. Relieving factors include --. This is a Telemedicine phone call visit conducted during the ID- PandemicTelehealth visit started: 4:41pmvomiting for 2 daysvomited every 2 hoursback pain since 11pmTaking Toradol Abd pain - upperLMP - 06/05/2019I called [facility] to sign out patient to triage [...] etoh no sh lives w and kids. 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 trying to conceive Had a tubal r eversal 3 months ago in [place]. Here to see why she has not [...] Pain Had btl 2d ag o in [place], crying moaning, shakin in pain. back pain (comments) OSTEOPATHIC PHYSICIAN note: Pt presents with back pain since Saturday night. The patient does not remember a mechanism of injury. The pain began mild but now is 10/10, she has not taken anything at home from it. Tried only heat for pain relief and it did not help. back pain Onset: 1 day ago . Severity level is severe. The problem is worsening. Location of pain is lower back.There is no radiation of pain. Context: no injury. Symptoms are aggravated by ascending stairs, daily activities, descending stairs, lifting, lying/rest, rolling over in bed and walking. Follow Up of Reyna mo (comments) [facility] are no prescribers there for med adjustments. reports minimal effect from buspar 5mg BID. continues with episodes of palpitations, skipped" heartbeats with her anxiety.she is also having continued R flank pain d/t recurrent renal stones. has ? hx medullary sponge kidney. has not seen urology or nephrology in years. [facility] to [facility] Dr. Gard[facility]. Follow Up of Depression Follow Up of Reyna mo (comments) needs note for continued FMLA from work. continues psych meds but has been unable to make appts with d/t no rides from [employer]. unable to get in toufch with local [...] group which has been helpful. No SI/HI Stressed Depression Anxiety Sleep disturbance Follow Up of Depression There [...] himself out of the picture. seeing Nadeen. Appetite loss Sleep disturbance Depression Follow Up of Depression The merlin ent presents with anxious/fearful thoughts, depressed mood, difficulty concentrating, difficulty falling asleep, difficulty staying asleep, diminished interest or pleasure, loss of appetite and restlessness but denies racing thoughts or thoughts of or suicide. 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 Follow Up of Depression This is a follow up visit. There is improvement of initial symptoms. The patient does not present with depressed mood or diminished interest or pleasure. Follow Up of gastritis ER Patient was seen in the ER at [facility] about 1 week ago .(records requested) And also was seen yesterday in the ER at [facility] ( records requested) for kidney stones abdominal [...] relationship with her mother-this causes her pain. Follow Up of ER abdominal pain Onset: 2 Weeks. The location is midline. The patient reports radiation to the back. The quality of the pain is sharp. Associated symptoms include back pain, flank pain and nausea. Pertinent negatives include dizziness, fever and vomiting.Additional information:hx of kidney stones. abdominal pain (comments) MD fareed acosta: long [...] ell at home. Denies preg. No dysuria. Kidney stones Onset: 4 months ago. Pain [...] not go into work; tubal ligation 2009. finger pain The symptoms beg an 1 day ago. The symptoms are reported as being moderate. The symptoms occur daily. The location is R hand - finger. Aggravating factors include movement. Relieving factors include none. Pt fell on her R hand and hurt her finger. LLQ pain The symptoms beg an 3 days ago. The symptoms are reported as being moderate. The symptoms occur daily. The location is LLQ. Relieving factors include ibuprofen. pt has hx of bilat kidney stones. last attack was was > 2 yrs ago. noting left flank pain radiating @ to LLQ. no F/C Functional Status Date Functional Assessmen t No Information Instructions Date Instruction Additional Infor [place] Lifestyle education regarding di et Related to Body mass index [BMI] 24.0-24.9, adult F/u with PCP Saturday 04/01 as scheduled Begin taking your fluoxetine 40mg daily Discontinue clonidineContinue with hydroxyzine as need Please slat pickler letter for work at [address] [...] am Related to Kidney stones Go to [facility] monica Mckee called [facility] Triage nurse and signed out [...] home.you can also try calling [facility] [place]. Related to Major depressive disorder, single episode, unspecified Please keep your harvinder t w/ BHContinue medicationFollow-up 2 weeksGo to ER or call 911 if any SI/HI Related to Major depressive disorder, recurrent, unspecified Increase sertraline to 100mgPt will see Brenda today at [address] [place] [address] seeing family counselor (located on [facility])Able to contract for safety. No SI/HIFollow-up 4-6 [...] to Epig astric pain call therapist [facility] to make urgent appointmentescitalopram 1 daily Related [...] fo r now Related to Finger pain Patient understood a nd made informed decision Reviewed medications Take new medication as prescribe d Increase activity level Patient understood a nd made informed decision Continue current medication Reviewed medications Increase rest Reviewed medications Add structured routine Follow exercise program Call office if symptoms worsen Go to ER if risk of harm to self or others Continue current medication Reviewed medications Activity as tolerated Return to office in 48-72hours R elated to Reviewed medications Take new medication as prescribe d Activity as tolerated Assessments Type Assessment Date No Information Patient Care Teams Name Effective Dates (start - stop) Status Members No Information
--- OUTSIDE RECORDS SUMMARY | 2025-01-31 21:42 | XMS_ITS | Encounter Summary ---
Author Organization [facility] and [facility] Address [address] [place] [address] Care Team Providers Care Swatch Paster Name Role Phone [facility] Primary Care Provider [phone] Reason for Referral * Consultation (Routine) - Authorized Specialty Diagnoses / Procedures Referred By Nancy allison Referred To Contact Urology Diagnoses Nephrolithiasis Fiona Squires MD [address] [place] [phone] Phone: tel: fax: Urology at [address] [facility] [address] [facility] [address]rd [place] [address] Phone: tel: Referral ID Status Reason Start Date Expiration Date Visits Requested Visits Authorized [id number] Authorized Specialty Services Required 02/08/2025 02/08/2026 10 10 * Consultation (Routine) - New Request Specialty Diagnoses / Procedures Referred By Contblake t Referred To Contact Endocrinology, Diabetes & Metabolism / Oncology Diagnoses Graves disease Andi Hassan MD [address] [place] [phone] Phone: tel: fax: [facility] [address] [address] Phone: tel: fax: Referral ID Status Reason Start Date Expiration Date Visits Requested Visits Authorized [id number] New Request Specialty Services Required 5 02/05/2026 1 1 Reason for Visit * Reason Comments Palpitations Arrived requesting m edication refill (unsure of name). Recently hospitalized for 8 days at [facility] for kidney stones and large mass in chest. Script sent to [place]. C/o nausea and palpitations. Medication Refill * Auth/Cert Specialty Diagnoses / Procedures Referred By Contac t Referred To Contact Emergency Medicine Diagnoses Graves disease [facility] Emergency Department [address] [place] [address] Phone: tel: Referral ID Status Reason Start Date Expiration Date Visits Re quested Visits Authorized [id number] 1 1 Encounter Details Date Type Department Care Team (Latest Contact Info) Description 01/31/2025 9:42 PM EST - 02/08/2025 7:39 PM EST Hospital Encounter EP [id number] [place] [address] Maire Woodson MD [address] [place] [phone] Dontae Rodriguez MD [address] [place] [phone] Gwen Morales MD [address] [place] [phone] Uriel Kaplan MD [address] [place] [phone] Fiona Squires MD [address] [place] [phone] Manjinder Maguire MD [address] [place] [phone] Graves disease (Primary Dx); Hyperthyroidism; Nephrolithiasis; Acute [...] things needed for daily living? No 02/02/2025 [facility] Utilities Answer Date Recorded In the past 12 months has e electric, gas, oil, or water company threatened to shut off services in your home? No 02/02/2025 Housing Stability Answer Date Recorded What is your living situation today? I have a [facility] place to live 02/02/2025 Housing Stability Not [...] from the original note were not included. [facility] Discharge Summary Patient Data: Patient Name: Paul Estrella Admit date: 01/31/2025 Age: 39 y.o. Discharge date: 02/08/2025 : 1985 Discharge Attending Physician: Fiona Squires MD Discharged Condition: good PCP: [facility] (Inactive) Disposition: Home Principal Diagnosis: Graves [...] None Follow-up Information: [facility] N[facility]4 [facility] [address] [address] Urology at [address] [facility] [address] [facility] 3rd Floor [facility] [address] Future Appointments Date Time Provider Department Center 02/09/2025 1:15 PM [facility] US4 SENIOR SPEECH PATHOLOGIST [facility] [facility] Course: Paul Estrella is a 39 [...] be here for 5-7 days. Presented to [facility] ED 01/31/2025 accompanied by hoping for improved [...] for outpatient follow up (pt prefers at [place] despite being from [place]). She was also ordered for TFT and LFT check in the outpatient setting via tagWALLET, to be obtained about 2 weeks post [...] 36.4* 51.1 Recent Labs Lab 02/06/25 0539 02/07/2543002/08/25411 NA 141 141 141 K 4.0 4.1 4.0 CL 105 108* 106 CO2 BUN 9 12 8 CREATININE 0.60 0.58 0.61 GLU 87 107* 96 ANIONGAP 11 9 10 Recent Labs Lab 02/06/2539 02/07/2543002/08/25411 CALCIUM 9.2 9.6 9.2 MG 2.0 1.7 [...] MD 02/08/2025 3:02 PM Best Contact Information: [employer] [1] Past Medical History: Diagnosis Date Anxiety [...] Repeat outpatient FT4 and LFT prior to [facility] followup appointment scheduled on 02/11. Urology placed [...] the section Pending Lab Studies: Please ask [facility] ([facility]) for the final results of the following inpatient pending studies: If you have any questions about your hospitalization, or encounter any issues with obtaining your prescriptions, medical equipment, or outpatient studies, please call [phone] or toll-free at [phone] ([phone]). documented in this encounter Medications at Time [...] times daily. 90 tablet 02/08/2025 oxyCODONE (ROXICODONE) 5 mg Immediate Release tablet Take 1 tablet (5 mg total) by mouth every 8 (eight) hours as needed for pain for up to 5 days. 15 tablet 02/08/2025 02/13/2025 propranoloL (INDERAL) 20 mg Immediate Release tablet Take 1 tablet (20 mg total) by mouth every 8 (eight) hours. 90 tablet 1 02/08/2025 tamsulosin (FLOMAX) 0.4 mg 24 hr capsule Take 1 capsule (0.4 mg total) by mouth nightly. 30 capsule 02/08/2025 polyethylene glycol (MIRALAX) 17 gram packet Take 1 packet (17 g total) by mouth 2 (two) times daily for 5 days. Mix in 8 ounces of water, juice, soda, coffee or tea prior to taking. 10 packet 02/08/2025 02/13/2025 oxyCODONE (ROXICODONE) 10 mg Immediate Release tablet Take 1 tablet (10 mg total) by mouth every 4 (four) hours as needed for up to 3 days. 8 tablet 02/08/2025 02/11/2025 senna 8.6 mg tablet Take 1 tablet (8.6 mg total) by mouth nightly as needed for constipation. 30 tablet 3 02/09/2025 02/11/2025 documented as of this encounter Progress Notes * Emanuel Albarado MD - 02/08/2025 8:09 AM EST Images from the original note were not included. [facility] Medicine Service Resident Inpatient Transfer Note Patient: [...] pHart: No results for input(s): PHART , CQT6TUK , PO2ART , YSN0ZRY , O7JCRHOF , LITERFLOW inthe last 168 hours. COVID Monitoring: Lab Results Component Value Date SARSCOV2 Not Detected 01/26/2025 Imaging/Monitors Radiology No results found. No results found. Cardiac EKG: Results for orders placed or performed during the hospital encounter of 01/31/25 EKG Result Value Ref Range Heart Rate 105 bpm QRS Interval 77 ms QT Interval 331 ms QTC Interval 439 ms P Bristol 29 deg QRS Bristol 37 deg T Wave Bristol 57 deg P-R Interval 129 msec SEVERITY [...] should be reconsidered to r/o malignancy. - senior radiation protection technician f/u for 2.8cm R sided ovarian cysts - PCP f/u for pulm nodules #Constipation - c/w miralax 34g b.i.d., senna qhs [facility] Checklist: Activity: OOB as tolerated PT/OT: [...] from the original note were not included. [facility] Medicine Service Resident Inpatient Progress Note Patient: [...] Q8H Emanuel Albarado MD 1,000 mg at 02/06/252113 enoxaparin (LOVENOX) syringe 40 mg 40 mg Subcutaneous Daily Manjinder Maguire MD 40 mg at 02/07/25 111 ketorolac (TORadol) injection 30 mg 30 mg IV Push Q6H Uriel Kaplan MD lidocaine uro-jet (XYLOCAINE) 2 % jelly 11 mL 11 mL Other 3 times daily Emanuel Albarado MD 11 mL at 02/07/25 111 methIMAzole (TAPAZOLE) tablet 15 mg 15 mg [...] pHart: No results for input(s): PHART , DOZ1INJ , PO2ART , OLU4IKQ , Q9ICCTMS , LITERFLOW inthe last 168 hours. COVID Monitoring: Lab Results Component Value Date SARSCOV2 Not Detected 01/26/2025 Imaging/Monitors Radiology No results found. No results found. Cardiac EKG: Results for orders placed or performed during the hospital encounter of 01/31/25 EKG Result Value Ref Range Heart Rate 105 bpm QRS Interval 77 ms QT Interval 331 ms QTC Interval 439 ms P Bristol 29 deg QRS Bristol 37 deg T Wave [place] 57 deg P-R Interval 129 msec SEVERITY [...] should be reconsidered to r/o malignancy. - senior radiation protection technician f/u for 2.8cm R sided ovarian cysts [...] from the original note were not included. [facility] Medicine Service Resident Inpatient Transfer Note Patient: [...] Q8H Dontae Rodriguez MD 40 mg at 02/05/251825 tamsulosin (FLOMAX) 24 hr capsule 0.4 mg [...] pHart: No results for input(s): PHART , APX8GNN , PO2ART , FJC8SAJ , N4LVMYOD , LITERFLOW inthe last 168 hours. COVID Monitoring: Lab Results Component Value Date SARSCOV2 Not Detected 01/26/2025 Imaging/Monitors Radiology No results found. No results found. Cardiac EKG: Results for orders placed or performed during the hospital encounter of 01/31/25 EKG Result Value Ref Range Heart Rate 105 bpm QRS Interval 77 ms QT Interval 331 ms QTC Interval 439 ms P Bristol 29 deg QRS Bristol 37 deg T Wave [place] 57 deg P-R Interval 129 msec SEVERITY [...] should be reconsidered to r/o malignancy. - senior radiation protection technician f/u for 2.8cm R sided ovarian cysts [...] to have repeat labs (TFTs, LFTs) around / of next week, along with close follow-up. [...] from the original note were not included. [facility] Endocrine Progress Note Attending Provider: Uriel Kaplan [...] to monitor while admitted. Pedro Nichole MD * Emanuel Albarado MD - 02/05/2025 8:28 AM EST Images from the original note were not included. [facility] Medicine Service Resident Inpatient Transfer Note Patient: [...] tablet 200 mg 200 mg Oral TID Emanuel Albarado MD 200 mg at 02/04/25 [...] pHart: No results for input(s): PHART , VGW0PAQ , PO2ART , GRX3QLW , I0UMLPTU , LITERFLOW inthe last 168 hours. COVID Monitoring: Lab Results Component Value Date SARSCOV2 Not Detected 01/26/2025 Imaging/Monitors Radiology No results found. No results found. 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 - senior radiation protection technician f/u for 2.8cm R sided ovarian cysts [...] from the original note were not included. [facility] Endocrine Progress Note Attending Provider: Uriel Kaplan [...] she plans to follow up here at [place] for ongoing care for Graves disease. Pedro Nichole MD * Emanuel Albarado MD - 02/04/2025 8:42 AM EST Images from the original note were not included. [facility] Service Resident Inpatient Transfer Note Patient: Paul [...] pHart: No results for input(s): PHART , KNH5GZV , PO2ART , DJC6TWC , G8PWIQOW , LITERFLOW inthe last 168 hours. COVID Monitoring: Lab Results Component Value Date SARSCOV2 Not Detected 01/26/2025 Imaging/Monitors Radiology No results found. No results found. Cardiac EKG: Results for orders placed or performed during the hospital encounter of 01/31/25 EKG Result Value Ref Range Heart Rate 105 bpm QRS Interval 77 ms QT Interval 331 ms QTC Interval 439 ms P Bristol 29 deg QRS Bristol 37 deg T Wave [place] 57 deg P-R Interval 129 msec SEVERITY [...] should be reconsidered to r/o malignancy. - senior radiation protection technician f/u for 2.8cm R sided ovarian cysts [...] from the original note were not included. [facility] Medicine Service Resident Inpatient Transfer Note Patient: [...] 0.60 Lytes, Coags, LFTs: Recent Labs Lab 01/31/25231802/01/25 0623 02/02/25 0435 02/03/25 0503 CALCIUM 9.8 9.5 9.5 9.5 MG 1.7 -- -- 1.8 PHOS 4.1 -- -- 5.1* BILITOT 0.3 -- -- 0.4 BILIDIR 0.1 -- -- 0.2 ALT 21 -- -- 34 AST 37* -- -- 22 ALBUMIN 4.3 3.8 -- 3.4* Glucose Trend: Recent Labs Lab 01/31/25231802/01/25 0623 02/02/25 0435 02/03/25 0503 GLU 109* 114* 94 101* Troponins: No results for input(s): TROPONINT in the last 168 hours. pHart: No results for input(s): PHART , YTY4ELH , PO2ART , ZPB7HWJ , O2VCJDJZ , LITERFLOW inthe last 168 hours. 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 Report initiated by: Dick Madrigal MD Reported and signed by: Ana M Moreira MD [facility] No results found. Cardiac EKG: Results for orders placed or performed during the hospital encounter of 01/31/25 EKG Result Value Ref Range Heart Rate 105 bpm QRS Interval 77 ms QT Interval 331 ms QTC Interval 439 ms P Bristol 29 deg QRS Bristol 37 deg T Wave [place] 57 deg P-R Interval 129 msec SEVERITY [...] 2:51 PM EST Associated attestation - Uriel Kaplan MD - 02/03/2025 2:51 PM EST I [...] wwp Patient exam or treatment required medical gear cutter. The sensitive parts of the examination were performed with gear cutter present: Yes; Lead Javascript Engineer Name, Role/Title: Dr. Cobb Labs: Imaging: No [...] from the original note were not included. [facility] Daily Progress Note Hospital Medicine Service Attending Provider: Dontae Rodriguez MD Location: [facility] Day #1 Subjective complains of pain [...] Labs: CBC Last 24hrs: WBC/Hgb/Hct/Plts: 7.6/11.9/35.00/284 (02/02 435) Lytes Last 24hrs: Na/K/Cl/CO2: 140/3.9/106/23 (02/02 0435) Peripheral Access: Periph IV 02/02/25 1217 dorsum left arm vyxe-kuv-wqmmao catheter system 20 gauge Nurse (Active) Imaging: [...] It demonstrates loss of signal intensity on ybr-zq-ynnfa imaging with signal intensity index of 11.6%. [...] and signed by: Ana M Moreira MD [facility] I reviewed lab results, microbiology, and imaging in formulating this patient's plan of care. Assessment: 39yo woman c past hx of anxiety, hyperthyroidism, medullary sponge kidney, nephrolithiasis s/p lithotripsy and ureteral stenting with recent diagnosis of Thyroid storm who presents from for 2nd opinion for Anterior mediastinal Mass evaluation. Plan: Hyperthyroidism During her admission at [facility], patient was initially started on MMI but she remained symptomaticand her free T4 was not appropriately declining despite 30mg TID; she was thus switched to PTU on 01/25, initially 50mg q6h and ultimately discharged on 100mg TID but pt unable to spanish moss picker prescription. Free T4 5.01 higher than [...] results in CRISP might need to call HH Anxiety- continue prn alprazolam, prn hydroxyzine Code: [...] moderate. Signed: Dontae Rodriguez MD Hospitalist Attending [facility] Contact via De Correspondent Secure chat DISCLAIMER: This note was generated in part using voice recognition software, occasional wrong-wordor vnnrb-q-jcls substitutions may have occurred due to the inherent limitations of voice recognition software. Read the chart carefully and recognize, using context, where the substitutions have occurred. Although every effort was made to edit the content, management recruiter and typing errors may occur. Please contact [...] wwp Patient exam or treatment required medical gear cutter. The sensitive parts of the examination were performed with gear cutter present: Yes; Lead Javascript Engineer Name, Role/Title: Dr. 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 Report initiated by: Dick Madrigal MD Reported and signed by: Ana M Moreira MD [facility] Assessment/Plan: Pt is [...] EST I saw and evaluated the patient, Paul Estrella. I agree with the findings and the plan of care as documented in the Resident note. Of note the patient is a 39F with history of R nephrolithiasis, persistent flank pain without other clear cause. I reviewed her CT images from [facility] dated 01/26/2025through [facility]. There are right renal calculi with adjacent [...] Maguire MD - 02/01/2025 5:33 AM EST [facility] Medicine Hospitalist Attending History & Physical History provided by: the patient, records History limited by: no limitations Subjective: Chief Complaint: Unable to obtain her PTU prescription HPI: Patient is a 39yo woman c past hx of anxiety, hyperthyroidism, medullary sponge kidney, nephrolithiasis s/p lithotripsy and ureteral stenting, presented to [facility] with possible thyroidstorm and renal colic for which transferred to [facility] on 01/20 where found to have 1) [...] second opinion for which now presents to [facility] ED. Sheendorses night sweats, chest tightness, mild [...] on file Social History Narrative Lives in [place]. Social Drivers of Health Financial Resource Strain: Low Risk (01/21/2025) Received from [facility] Overall Financial Resource Strain (CARDIA) How hard is it for you to pay for the very basics like food, housing, medical care, and heating?: Not very hard Food Insecurity: No Food Insecurity (01/21/2025) Received from [facility] Hunger Vital Sign Within the past 12 months, you worried that your food would run out before you got the money to buymore.: Never true Within the past 12 months, the food you bought just didn't last and you didn't have money to get more.: Never true Transportation Needs: No Transportation Needs (01/21/2025) Received from [facility] PRAPARE - Transportation In the past 12 months, has lack of transportation kept you from medical appointments or from getting medications?: No In the past 12 months, has lack of transportation kept you from meetings, work, or from getting things needed for daily living?: No Physical Activity: Not on file Stress: No Stress Concern Present (12/06/2022) Received from [facility] of Occupational Health - Occupational Stress Questionnaire Feeling of Stress : Only a little Social Connections: Not on file Intimate Partner Violence: Unknown (11/17/2024) Received from [facility] Intimate Partner Violence Are you denied basic [...] Housing Stability: Low Risk (01/21/2025) Received from [facility] Housing Stability Vital Sign In the last 12 months, was there a time when you were not able to pay the mortgage or rent on time?: No In the past 12 months, how many times have you moved where you were living?: 0 At any time in the past 12 months, were you homeless or living in a residential (including now)?: No Family History Problem Relation [...] above. The bilateral ureteral jets are visualized. [facility] Radiology Notify System Classification: Routine. Report initiated by: Tariq Zee MD Reported and signed by: Jr Cosby MD [facility] MRI Chest wo IV Contrast (Results Pending) ECG: sinus at 105, LVH voltage, no acute ST changes, TWI in V1 (my read) Assessment: 39yo woman c past hx of anxiety, hyperthyroidism, medullary sponge kidney, nephrolithiasis s/p lithotripsy and ureteral stenting, presented to [facility] with possible thyroid storm and renal colic for which transferred to [facility] on 01/20 where found to have 1) [...] second opinion for which now presents to [facility]. Plan: 1. Hyperthyroidism: - resume PTU 100mg [...] - f/u GALA, flow cytometry, HIV from [facility] - MRI chest ordered - oncology consulted by the ED 5. Malnutrition at OSH: - check prealbumin, albumin - consider nutrition consult 6. Anxiety: - continue prn alprazolam, prn hydroxyzine 7. Medication reconciliation status: complete FEN: regular diet PPx: lovenox CODE: FULL Notifications: PCP: [facility] Primary Care Provider was notified of this admission. Not listed in [facility] Family was notified of this [...] consulted by Attending Provider: Uriel Kaplan MD [phone] and seen on 02/03/2025 for 39F presenting [...] imagingin 3 months; who now presents to [facility] for second opinion, pain and inability to [...] CAP, She should also follow up with [employer] for ovarian cysts, Urology for stones and [...] individual patients 8A- 5P, please contact the '[facility] Oncology Consult' Mobile Heartbeat. Weekend/Evening: Please refer [...] Fellow, advanced practice registered nurse or physician paralegal assistant who also saw and examined the [...] initial consults, use inpatient consult service codes [id number]. For subsequent visits, use codes 08590-10539. * Bailey Persaud MD - 02/01/2025 11:14 AM ESTAssociated Order(s): INPATIENT/ED CONSULT TO ENDOCRINOLOGY, DIABETES & METABOLISM Images from the original note were not included. [facility] Endocrine Consult Note Consult Information: Endocrine Consultation [...] ureteral stenting, who was recently admitted to [facility] for hyperthyroidism attributed to thyroiditis in the setting of Graves Disease as well as renal colic with obstructing nephrolithiasis, now admitted to [facility] for symptomatic hyperthyroidism. Endocrinology consulted for management of hyperthyroidism. During her admission at [facility], patient was initially started on MMI but she remained symptomaticand her free T4 was not appropriately declining despite 30mg TID; she was thus switched to PTU on 11/17, initially 50mg q6h and ultimately discharged on 100mg TID. Of note, patient was also found to have a mediastinal mass and was recommended follow up with MRI. Patient was discharged on 01/30 but was unable to obtain PTU from her pharmacy so she presented to the [facility] ED. Patient stated that she was initially diagnosed with hyperthyroidism when she had trouble conceiving in 3848-5061 but never received treatment for it. She [...] 97 (!) 92 (!) 104 Resp: 18 Temp: 97.6 ??F (36.4 ??C) 97.9 [...] Direct <=0.2 mg/dL 0.1 Comment: Effective 11/26/2024 [facility] changed the Direct Bilirubin testing method from [...] for thyroid storm. She was transferred from [facility] to for ?thyroid storm and received high- dose MMI and steroids in that setting. At , she was switched to PTU and cholestyramine due to slow response to MMI. 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 She presents here as she was unable to spanish moss picker her PTU Rx and wanted a second opinion regarding treatment of her thymic mass. She reports being told her thyroid levels were abnormal during a previous fertility evaluation but never had a formal diagnosis of thyroid disease until recently. Has also not been able to establish care with [facility] yet due to her recent hospitalization. [...] in uncontrolled Graves' disease. Katina Vasquez MD Ecology Teacherjava sql developer (Endocrinology) [employer] [employer] Electronically Signed by Katina Vasquez MD, February 01, 2025 * Franchesca Self PA - 02/01/2025 8:38 AM ESTAssociated Order(s): INPATIENT/ED CONSULT TO MEDICAL ONCOLOGY Images from the original note were not included. Medical Oncology Consult Note Assessment: Medical oncology consulted by Attending Provider: Dontae Rodriguez MD [phone] and seen on 02/01/25 for 39F presenting [...] imagingin 3 months; who now presents to [facility] for second opinion, pain and inability to obtain outpatient meds. Plan: Inpatient Recommendations: --Awaiting MRI Chest --obtain LD, Uric Acid --Appreciate Endocrine involvement. --Pending MRI chest will need to determine if additional workup needed such as bx or further staging scans. Of note, had CT CAP at OSH. Outpatient Recommendations: --Pt preference would be for her care at [facility] if outpatient follow up needed. Thank you [...] daily Brown Allred MD 100 mg at 02/01/25 0041 sodium chloride 150 mL/hr (02/01/25 0729) [...] individual patients 8A- 5P, please contact the '[facility] Oncology Consult' Mobile Heartbeat. Weekend/Evening: Please refer [...] Fellow, advanced practice registered nurse or physician paralegal assistant who also saw and examined the [...] initial consults, use inpatient consult service codes [id number]. For subsequent visits, use codes [id number]. * Maykel Renteria MD - 02/01/2025 5:25 [...] She states that she had been at [facility] for the last 8 days. There, she [...] above. The bilateral ureteral jets are visualized. [facility] Radiology Notify System Classification: Routine. Report initiated by: Tariq Zee MD Reported and salazar d by: Jr Cosby MD [facility] Assessment/Recommendations Paul Estrella [...] Dr. Maykel Renteria Signed: Quentin Bartlett M.D. [place] [facility] Resident Physician PGY-2 Attending Pt seen [...] Awaiting IP bed. 7:50 PM Pt requesting citizen of [place] ice/provided. Up to toilet-safety maintained. 9:00 PM [...] safety maintained. 7:08 AM Report given to oncotilia RN. * Salomón Michelle RN - 02/01/2025 12:10 PM EST Chief Complaint Patient presents with Palpitations Arrived requesting medication refill (unsure of name). Recently hospitalized for 8 days at [facility] for kidney stones and large mass in chest. Script sent to [place]. C/o nausea and palpitations. Medication Refill Past Medical History[1] [phone] Assumed care. AAOx4, VSS on RA. No [...] 3:17 AM Transferred from MARY ANN to side alert and oriented x4, room air, [...] name). Recently hospitalized for 8 days at [facility] for kidney stones and large mass in chest. Script sent to [place]. C/o nausea and palpitations. Medication Refill No past medical history on file. Allergies:Iodinated contrast media Patient A&OX4, chief complaint Anxiety, nausea, and palpitations. Patient state she was recently admitted at [facility] for kidney stones and she was also given the wrong medication for her hyper thyroid disease. Patient denies any other complaints. Patient educated on plan of care and safety. Patient not in any obvious distress. There are no other unrelated non-urgent or urgent complaints. Spouse at bedside call harrell within reach. * Karlie Del Valle RN - 02/01/2025 1:33 AM EST Patient taken to [place] * Marie Woodson MD - 01/31/2025 11:00 PM EST Chief Complaint Patient presents with Palpitations Arrived requesting medication refill (unsure of name). Recently hospitalized for 8 days at [facility] for kidney stones and large mass in chest. Script sent to [place]. C/o nausea and palpitations. Medication Refill Resident Note Synopsis Paul Estrella is a 39 y.o. year old female with a PMH significant for recently diagnosed hyperthyroidism, anterior mediastinal mass, R-sided kidney stone, and moderate malnutrition who presents with nausea, tremulousness, significant anxiety, and palpitations iso inadequately treated Grave's disease, as well as 12/18 R flank pain iso known renal calculi. She was recently admitted 01/20 - 01/30(?) to [facility] for similar sx where she was [...] and her drove 1.5 hours here to [place] in the hopes of improved symptomatic management, [...] occurred with oversight by Brown Allred MD Retail District Manager, PGY-3 An acute or life threatening problem was considered during this evaluation A decision regarding hospitalization was made during this visit External data reviewed: Labs and Notes (OSH or non-ED) Care limited by SDOH: Ad Terminal Makeup Operator Access. Independent interpretation of: US and MRI Directly spoke with: Home Based Assistant Physical Exam ED Triage Vitals [01/31/252013] BP: [...] nausea, tremulousness, anxiety since her d/c from [facility]. She reports inability to spanish moss picker PTU prescription. She wasalso found to [...] EST Plan of Care Overview/ Patient Status [phone] Pt is a female. Pt with moderate [...] Review of Necessity completed 02/08/25 1225 Mobility: [facility] Mobility Score: [address], [...] W10 complete N/A JAMES Completed and Accepted ([place] Patients Only) N/A Is the destination address correct on the W10 N/A Is MVP Pathway complete? N/A Last Bowel Movement 02/07/25 Arely Archibald RN Care Management Department [facility] * Malnutrition Note - Eliseo Leonard RD [...] Muscle Mass: All Etiologies: Mild Depletion - [place], Mild Depletion - Clavicle bone region [...] EST Plan of Care Overview/ Patient Status 8961-8678 Pt is a female. Pt with moderate [...] 02/08/25 1225 Date Dressing Applied/Changed 03/09/25 02/08/25 122 Next Date Dressing Change 03/16/2025 02/08/25 1225 Lumen 1 Patency/Care Patent;flushed w/o difficulty 02/08/25 122 Site Signs asymptomatic without redness, warmth, swelling, pain, palpable cord, streak formation, drainage, dressing intact 02/08/25 122 Phlebitis 0-->no symptoms 02/08/25 1225 Infiltration/Extravasation Assessment 0-->no symptoms 02/08/25 1225 Patient Education Instructed to keep IV site dry 02/08/25 122 Daily Review of Necessity completed 02/08/25 122 Mobility: 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 This equates to a 5% wt loss in the past 1 month. Wt loss appears to be related decreased oral intake over the past 1 month. Wt Readings from Last 20 Encounters: 02/08/25 73 kg NUTRITION-FOCUSED PHYSICAL EXAM: Subcutaneous Fat Loss: Orbital: Mild Buccal: Mild Upper Arm: Mild Muscle Loss: [place]: Mild Clavicle: Mild Deltoid: Mild Interosseous: Mild SKIN: No skin related changes that require adjustment to nutrition estimated needs. ESTIMATED NUTRITION REQUIREMENTS: Kcal/day: 8814-9773 (25-30kcal/kg) Protein/day: 78 (1.2 gm/kg) Fluids/day: 4418-1587 mL/d (1mL/kcal) ONLY as medical and fluid [...] encouragement to increase protein intake at meals. Cultural/Muslim/Ethnic Needs: No NUTRITION DIAGNOSIS: Moderate malnutrition related [...] by Eliseo Leonard RD, February 08, 2025 [facility] M-F Adult Inpatient Service ???Please note: Nutrition is a consult only service on weekends and holidays. Please enter a consult in Spark[employer] if assistance is needed on a weekend or holiday. Dietitian staff covering weekends or holidays can be contacted via [employer] ???[facility] Food and Nutrition Services Adult Dietitian (Weekend)?? [1] Allergies Allergen Reactions Ceftriaxone Hives 6 mo ago at OSH per pt Iodinated Contrast Media Hives Confirmed per patient, >1 yr ago * Plan of Care - Carolyn Fajardo RN - 02/08/2025 12:52 AM EST Plan of Care Overview/ Patient Status 0536-1543 Pt is a female. Pt with moderate-severe [...] Outcome: Interventions implemented as appropriate Flowsheets (Taken 02/08/202551) Progress: no change Plan of Care Reviewed With: patient * Plan of Care - Arely Dimas RN - 02/07/2025 8:54 PM EST Plan of Care Overview/ Patient Status [phone]---1899 Pt is a female. Pt with severe [...] Daily Review of Necessity completed 02/07/252053 Mobility: [facility] Mobility Score: [address], all safety measures implemented. Isolation Precautions: Significant events from this shift: * Plan of Care - Carolyn Fajardo RN - 02/07/2025 12:03 AM EST Plan of Care Overview/ Patient Status 6398-9451 Pt is a female. Pt with severe [...] EST Plan of Care Overview/ Patient Status 6808-1316 Pt is a female. Pt with moderate [...] Movement: 02/01/[address] Continent. Coleman urine this evening with minimal sediment strained. [...] Daily Review of Necessity completed 02/05/252131 Mobility: [facility] Mobility Score: [address], all safety measures implemented. Isolation Precautions: Significant events from this shift: * Plan of Care - aNt Yao RN - 02/05/2025 11:05 PM EST Plan of Care Overview/ Patient Status 0614-5752 Pt is a female. Pt with ongoing flank pain at this time. Meds given (see MAR) and heat packs applied Neuro: Alert and oriented times 4 CV: Tele. Normal sinus rhythm Resp: Room air. No shortness of breath per patient GI Last Bowel Movement: 02/01/25 Continent. Coleman urine this evening with minimal sediment strained. [...] Daily Review of Necessity completed 02/05/252131 Mobility: [facility] Mobility Score: 23 Bed alarm refused, all safety measures implemented. Isolation Precautions: none Significant events from this shift: Propanolol dose held this morning due to soft bp, MD aware of situation. Problem: Adult Inpatient Plan of Care Goal: Absence of Hospital-Acquired Illness or Injury Outcome: Interventions implemented as appropriate Intervention: Identify and Manage Fall Risk Flowsheets (Taken 02/05/20252131) [place] Fall Prevention: activity supervised assistive device/personal items [...] EST Plan of Care Overview/ Patient Status 6155-8811 Pt is a female. Pt with severe [...] Periph IV 02/02/25 1217 dorsum left arm csyo-tdo-odanwy catheter system 20 gauge Nurse (Active) SiteCare/Dressing [...] initiated. Patent with good blood return. Mobility: [facility] Mobility Score: 23. Ambulates independently in room. [...] EST Plan of Care Overview/ Patient Status 2147-5522 Pt is a female. Pt with moderate [...] Periph IV 02/02/25 1217 dorsum left arm xlxh-uzt-abgbin catheter system 20 gauge Nurse (Active) SiteCare/Dressing [...] Daily Review of Necessity completed 02/04/252004 Mobility: [facility] Mobility Score: [address], all safety measures implemented. Isolation Precautions: none Problem: Adult Inpatient Plan of Care Goal: Absence of Hospital-Acquired Illness or Injury Outcome: Interventions implemented as appropriate Intervention: Identify and Manage Fall Risk Flowsheets (Taken 02/04/20252004) [place] Fall Prevention: activity supervised assistive device/personal items within reach keep room clutter free with open pathway to the bathroom fall prevention program maintained safety round/check completed room organization consistent Intervention: Prevent Skin Injury Flowsheets (Taken 02/04/20252004) Body Position: independent Intervention: Prevent and Manage VTE (Venous Thromboembolism) Risk Flowsheets (Taken 02/02/2025 131 by Frannie Conroy, YOLANDA) VTE Prevention/Management: sequential compression devices on Intervention: Prevent Infection Flowsheets (Taken 02/04/20252004) Infection Prevention: cohorting utilized environmental surveillance performed equipment surfaces disinfected hand hygiene promoted rest/sleep promoted * Plan of Care - Erica Gonsalez RN - 02/04/2025 1:47 PM EST Plan of Care Overview/ Patient Status 4751-1950 Pt is a female. Pt with moderate [...] Periph IV 02/02/25 1217 dorsum left arm jeaa-qvo-wlrjaw catheter system 20 gauge Nurse (Active) SiteCare/Dressing Status/Securement dressing dry and intact 02/04/25 09 Date Dressing Applied/Changed 02/02/25 02/02/25 131 Next Date Dressing Change 02/09/2025 02/02/25 1315 Lumen 1 Patency/Care Patent;flushed w/o difficulty 02/04/25 09 Site Signs asymptomatic without redness, warmth, swelling, pain, palpable cord, streak formation, drainage, dressing intact 02/04/25 09 Phlebitis 0-->no symptoms 02/04/25900 Infiltration/Extravasation Assessment 0-->no symptoms 02/04/25900 Patient Education Instructed to keep IV site dry;Instructed to call nurse if site is painful,red,swollen, burning;Instructed to call nurse if fluid leaking from site 02/04/25900 Daily Review of Necessity completed 02/04/25900 Mobility: [facility] Mobility Score: 23 Bed alarm not indicated, [...] EST Plan of Care Overview/ Patient Status 2034-3047 Pt is a female. Pt with moderate ongoing pain at this time. PRN meds given (see MAR) Neuro: Alert and oriented times 4 CV: Tele. Normal sinus rhythm Resp: Room air. No shortness of breath per patient GI Last Bowel Movement: 02/01/25 Continent. Red/pink urine this evening, pt reporting that the colour is direct chill casting operator compared to earlier in the day. updated on situation. Skin: See skin flowsheet. T+P independently Access Periph IV 02/02/25 1217 dorsum left arm pytw-ybt-swnpvq catheter system 20 gauge Nurse (Active) SiteCare/Dressing [...] Daily Review of Necessity completed 02/03/252011 Mobility: [facility] Mobility Score: [address], all safety measures implemented. Isolation Precautions: none Problem: Adult Inpatient Plan of Care Goal: Absence of Hospital-Acquired Illness or Injury Outcome: Interventions implemented as appropriate Intervention: Identify and Manage Fall Risk Flowsheets (Taken 02/03/20252011) [place] Fall Prevention: activity supervised assistive device/personal items [...] 02/03/2025 3:37 PM EST Patient Name:Paul Estrella Strategic Partner Development Manager: [id number] Sikh: None [facility] Spiritual Care Note Date of Spiritual Visit: 02/03/25 Start Time: 1517 Stop Time: 1537 Time Calculation (min): 20 min Total Consult Time: 25 minutes Assessment: Pt is being visited by her who is loving and caring for her. She was pleasant and shared freely. Pt is anxious and would like for agriculture scientist to prayer for her family and her health. We prayed together before ending our visit. Intervention: Referral Source: Strategic Partner Development Manager Initiated Visit and Intervention Type: Spiritual Visit Outcome: Patient/Loved ones' desires are respected; emotional spiritual, roman catholic and/or existential needs are addressed. Plan: Spiritual Care is available 01/10 for support of patients, their loved ones, and staff. Please consult spiritual care in [place] for non-urgent needs or call our on-call agriculture scientist for urgent needs. Below is a list of common reasons to consult us for support: N: new diagnosis E: emotional/spiritual distress E: existential distress D: decision making/goals of care meetings S: support for staff and patients' loved ones C: compromised coping A: anxiety/stress/grief/loneliness R: roman catholic/cultural/ritual needs E: end-of-life care//dying Strategic Partner Development Manager: Rev. Alexander Ayala Mobile Heart Beat #[phone]: Sat-Sat. 8:00 am - 4:00 pm. Strategic Partner Development Manager [employer] Erp Developer #[phone]. 02/03/2025 3:37 PM * Plan of Care - Erica Gonsalez RN - 02/03/2025 10:56 AM EST Plan of Care Overview/ Patient Status 1310-3742 Pt is a female. Pt with no [...] red/saad today, change from baseline yellow - notified. Masood torres MD aware. Skin: See skin flowsheet. T+P independently. Pt remains on pressure reduction mattress and heels elevated off bed. Access Periph IV 02/02/25 1217 dorsum left arm byww-iqv-zbrayi catheter system 20 gauge Nurse (Active) SiteCare/Dressing Status/Securement dressing dry and intact 02/03/25 09 Date Dressing Applied/Changed 02/02/25 02/02/25 1315 Next Date Dressing Change 02/09/2025 02/02/25 1315 Lumen 1 Patency/Care Patent;flushed w/o difficulty 02/03/25 [...] Daily Review of Necessity completed 02/03/25899 Mobility: [facility] Mobility Score: 23 Bed alarm refused, all [...] s/p lithotripsy and ureteral stenting, presented to [facility] with possible thyroid storm and renal colic for which transferred to [facility] on 01/20 where found to have 1) [...] second opinion for which now presents to [facility]. Patient resides with her spouse. 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 Independent at baseline. No CM needs anticipated. [...] services prior to admission ( Examples: Acute [facility] Hospital, Assisted Living, HD, Homecare, Extended Care Facility, Methadone, SNF, Outpatient Infusion Center) No Concern for current abuse/neglect/interpersonal violence/sexual assault No Connected to state agency? No Guardianship or conservatorship No Negative/Positive Screen Positive Screening: Complete CM/SW Evaluation and Plan Neon Installer/Social Work Attestation I have reviewed the medical [...] Recommendations Home with MD follow-up/No needs identified Neon Installer/Needle Board Repairer reviewed plan of care/ continuum of care need's with Patient, Interdisciplinary Team, Discharge Planning Rounds Housing / Transportation/ Environment What is your living situation today? I have a steady place to live Think about the place you live. Do you have problems with any of the following? None In the past 12 months has the [employer], gas, oil, or water [employer] threatened to shut off services in your [...] we have started letting everyone know that [place] has a safe, confidential and free 01/[address] [place] [employer] no education not provided Would it be [...] we have started letting everyone know that [place] has a safe, confidential and free 01/[address] [place] [employer] no education not provided Would it be ok if we add this resource to your DC paperwork? no it service delivery manager will continue to follow patient as she progresses towards discharge. Arely Archibald RN Care Management Department [facility] * Plan of Care - Erica Laboy RN - 02/02/2025 10:51 PM EST Plan of Care Overview/ Patient Status 3933-0523 Pain well controlled with PRN oxycodone and [...] from the original note were not included. [facility] Endocrine Progress Note Attending Provider: Uriel Kaplan [...] EST Plan of Care Overview/ Patient Status 5686-2350 Pt is a female. Pt with moderate [...] Periph IV 02/02/25 1217 dorsum left arm rhas-mne-urckca catheter system 20 gauge Nurse (Active) SiteCare/Dressing Status/Securement dressing dry and intact 02/02/25 1534 Date Dressing Applied/Changed 02/02/25 02/02/25 1315 Next Date Dressing Change 02/09/2025 02/02/25 1315 Lumen 1 Patency/Care Patent;flushed w/o difficulty 02/02/25 1534 Site Signs asymptomatic without redness, warmth, swelling, pain, palpable cord, streak formation, drainage, dressing intact 02/02/25 153 Phlebitis 0-->no symptoms 02/02/25 153 Infiltration/Extravasation Assessment 0-->no symptoms 02/02/251533 Patient Education Instructed to call nurse if site is painful,red,swollen, burning;Instructed to keep IV site dry;Instructed to call nurse if fluid leaking from site 02/02/251533 Daily Review of Necessity completed 02/02/251533 Mobility: [facility] Mobility Score: 22 SBA OOB. Bed alarm [...] 02/02/25 0903 02/02/25 1045 02/02/25 1100 02/02/25 1315 BP: 102/71 104/76 138/70 Pulse: (!) 93 [...] Periph IV 02/02/25 1217 dorsum left arm cnqb-ftw-ogfpve catheter system 20 gauge Nurse (Active) SiteCare/Dressing [...] from the original note were not included. [facility] Medicine Service Resident Inpatient Transfer Note Patient: [...] R flank pain Recently admitted 01/19-01/30 to [facility] for nausea, tremulousness, significant anxiety, and palpitations [...] be here for 5-7 days. Presented to [facility] ED 01/31/2025 accompanied by hoping for improved [...] patient after R ureteral stent. Moved to [place] 3 years ago, never got a PCP [...] Studies CBC/BMP: Recent Labs Lab 01/31/25231802/01/2562202/02/25 0435 WBC 8.3 7.7 7.6 HGB 13.5 12.0 [...] pHart: No results for input(s): PHART , ECA7RWE , PO2ART , IAV4HNT , P7NRSUOE , LITERFLOW inthe last 168 hours. 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 Report initiated by: Dick Madrigal MD Reported and signed by: Ana M Moreira MD [facility] US Renal Result Date: 02/01/2025 There is redemonstration of dilatation of the proximal ureter of the lower pole , similar compared to outside CT examination. Redemonstration of bilateral renal calculi, in similar position compared to outside CT examination, as described above. The bilateral ureteral jets are visualized. [facility] Radiology Notify System Classification: Routine. Report initiated by: Tariq Zee MD Reported and salazar d by: Jr Cosby MD [facility] CT Chest/abdomen+pelvis w/o [...] Merary Smith telephone at 01/21/2025 2:31 AM MARSHMALLOW MACHINE WORKER and it was ascertained that the content and urgency of the report was understood at the time of direct communication. Interpreted by: Jabari Carmichael MD Scientific Photographer I personally reviewed the images and the resident's preliminary report and AGREE with the report as it is now presented (RADPAL1). No results found. Cardiac EKG: Results for orders placed or performed during the hospital encounter of 01/31/25 EKG Result Value Ref Range Heart Rate 105 bpm QRS Interval 77 ms QT Interval 331 ms QTC Interval 439 ms P [place] 29 deg QRS [place] 37 deg T Wave [place] 57 deg P-R Interval 129 msec SEVERITY [...] Contact: Jose Estrella Signed: Chris Gardiner MD [facility] Medicine, PGY-3 Available on [employer] February 02, 2025 Please await attending attestation [...] will follow TFTs including free T4 and totalT3 daily for now, while adjusting the propranolol for a HR goal < 90 (being mindful of some softer BPs and transient bradycardia noted as well). Continue newly-started tamsulosin and follow urinary output, labs, and symptoms. 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 As such, she will have repeat chest imaging 6 months afterachievement of euthyroidism, at which time a biopsy [...] Shukla MD - 02/02/2025 10:56 AM EST [facility] OPERATIVE REPORT CONFIDENTIAL - DO NOT COPY WITHOUT APPROPRIATE AUTHORIZATION Name: Paul Estrella CSN: [id number] Service Area: Urology Date of : 1985 Dictated by: Quentin Bartlett MD DATE OF PROCEDURE/SURGERY: 02/02/2025 OPERATION: Cystoscopy, placement of right ureteral stent BELL VALET: Rodriguez Shukla MD HEATER FURNACE: Aimee Baig MD ANESTHESIOLOGIST: ANESTHESIOLOGIST: Panchito Martinez [...] atraumatically using a 30-degree cystoscope and a 22-[place] sheath. Routine surveillance cystoscopy did not reveal any abnormalities. Bilateral ureteral orifices were in their orthotopic positions. The right ureteral orifice was first cannulated using a 5-[place] open-ended catheter over a 0.035 Sensor wire [...] transferred to the PACU in stable condition. I, Rodriguez Lowe MD was scrubbed and present for all critical portions of the case. Plan: - Follow up with an endo urologist in 2-3 weeks * Plan of Care - Dontae Rodriguez MD - 02/01/2025 3:21 PM EST 39yo woman c past hx of anxiety, hyperthyroidism, medullary sponge kidney, nephrolithiasis s/p lithotripsy and ureteral stenting with recent diagnosis of Thyroid storm who presents from for 2nd opinion for Anterior mediastinal Mass evaluation. Hyperthyroidism During her admission at [facility], patient was initially started on MMI but she remained symptomaticand her free T4 was not appropriately declining despite 30mg TID; she was thus switched to PTU on 01/25, initially 50mg q6h and ultimately discharged on 100mg TID but pt unable to spanish moss picker prescription. Free T4 5.01 higher than [...] at bedside) Dontae Rodriguez MD Hospitalist Attending [facility] Contact via De Correspondent Secure chat DISCLAIMER: This note was generated in part using voice recognition software, occasional wrong-wordor [id number] substitutions may have occurred due to the inherent limitations of voice recognition software. Read the chart carefully and recognize, using context, where the substitutions have occurred. Although every effort was made to edit the content, management recruiter and typing errors may occur. Please contact me if clarification of content is felt warranted. All due diligence and care undertaken in caring for this patient. Please review chart with your PCP after discharge for important information. * Utilization Review - Cande Thompson RN - 02/01/2025 4:08 AM EST Utilization Review from [facility] Patient Data: Patient Name: Paul Estrella Age: [...] these were sent to a pharmacy in [place] after her hospital discharge 01/30. She was at [facility] 01/20-01/30 due to concerns for thyroid storm. Initial labs with suppressed TSH and high free T4 above measurable limit. Found to have positive TSI consistent with Graves' disease. Perchart, she reported a history of thyroid disorder since 2020 but was not on treatment. Was seen by endocrinology at [facility] and was initially treated with methimazole up [...] to note dated 02/01/25 Katina Vasquez MD Ecology Teacherjava sql developer (Endocrinology) [employer] Electronically Signed by Katina Vasquez MD, February 01, 2025 documented in this encounter Plan of Treatment Upcoming Encounters Date Type Department Care Team (Late st Contact Info) Description 02/22/2025 9:00 AM EST Office Visit [facility] at [address] [place] [address] [address] [place], [place] [address] Anand Robbins MD [address] [place] [address] 06/02/2025 1:45 PM EDT Office Visit [facility] Endocrine Neoplasia [address] [facility] [address] [place] [address] Katina Vasquez MD [address] [facility] 4 [place] [address] Scheduled Referrals Name Type Priority Associated Diagnoses Order Schedule [facility] Endocrine Oncology Program- Cattery Operator Outpatient Referral Routine Graves disease Ordered: 02/05/2025 [...] EST GALA BY IFA W/RFLX TO DSDNA, HORSE TRAINER, SM, SSA, AND SSB ABS (LMW [facility]) Routine 02/03/2025 5:02 AM EST URINE CULTURE Urgent 02/02/2025 9:36 PM EST NR FL LESS THAN 1 HOUR EXAM Routine 02/02/2025 1:48 PM EST Right nephrolithiasis WV CYSTOSCOPY,INSERT URETERAL STENT Low Risk 02/02/2025 12:07 [...] 11:19 PM EST TSH W/REFLEX TO FT4 (BH GH LMW Q [facility]) Timed 01/31/2025 11:19 [...] documented in this encounter Results * (ABNORMAL) T3 (02/11/2025 10:21 AM EST) T3, Total 311.0(H) See Comment ng/dL 02/11/2025 11:40 AM EST [facility] DEPARTMENT OF LABORATORY MEDICINE Comment: Male & Non- Females: 72.0-153.0 ng/dL 1st Trimester: 92.0-224.0 ng/dL 2nd Trimester: 99.0-242.0 ng/dL Blood Venipuncture / Unknown 02/11/2025 10:21 AM EST 02/11/2025 10:34 AM EST us Fiona Squires MD LAB BLOOD ORDERABLES Final Resul t Performing Organization Address [facility] Co de Phone Number [facility] [address] [place] [address] * (ABNORMAL) T4, free (02/11/2025 10:21 AM EST) Free T4 3.44(H) See Comment ng/dL 02/11/2025 11:18 AM EST [facility] DEPARTMENT OF LABORATORY MEDICINE Comment: For patients [...] Trimester: 0.70-1.30 ng/dL Blood Venipuncture / Unknown 02/11/2025 10:21 AM EST 02/11/2025 10:34 AM EST us Fiona Squires MD LAB BLOOD ORDERABLES Final Resul t Performing Organization Address City/[facility]/ZIP Co de Phone Number [facility] DEPARTMENT OF LABORATORY MEDICINE [address] [place] [address] * (ABNORMAL) Comprehensive metabolic panel (02/08/2025 4:12 AM RUST) [facility] Sodium 141 136 - 144 mmol/L 02/08/2025 5:15 AM DE[facility]MENT OF LABORATORY MEDICINE Potassium 4.0 3.3 - 5.3 mmol/L 02/08/2025 5:15 AM [facility] LABORATORY MEDICINE Chloride 106 98 - 107 mmol/L 02/08/2025 5:15 AM [facility] LABORATORY MEDICINE CO2 25 20 - 30 mmol/L 02/08/2025 5:15 AM [facility] LAB[facility]ORY [facility] Anion Gap 10 7 - 17 02/08/2025 5:15 AM [facility]ORY [facility] Glucose 96 70 - 100 mg/dL 02/08/2025 5:15 AM [facility] BUN 8 6 - 20 mg/dL 02/08/2025 5:15 AM [facility] Creatinine 0.61 0.40 - 1.30 mg/dL 02/08/2025 5:15 AM [facility] Calcium 9.2 8.8 - 10.2 mg/dL 02/08/2025 5:15 AM [facility] BUN/Creatinine Ratio 13.1 8.0 - 23.0 02/08/2025 5:15 AM [facility] Total Protein 5.9 5.9 - 8.3 g/dL 025 5:15 AM [facility]ORY [facility] Albumin 3.2(L) 3.6 - 5.1 g/dL 02/08/2025 5:15 AM [facility]ORY MED[facility] Total Bilirubin 0.4 <=1.2 mg/dL 02/09/20 25 5:15 AM [facility] LABORATORY MEDICINE Alkaline Phosphatase 68 9 - 122 U/L 02/08/2025 5:15 AM [facility] LABORATORY MEDICINE Alanine Aminotransferase (ALT) 101(H) 10 - 35 U/L 02/08/2025 5:15 AM [facility] LABOR[facility]ORY MEDICINE Comment:Calcium dobesilate c an cause artificially low ALT results at therapeutic concentrations Aspartate Aminotransferase (AST) 69(H) 10 - 35 U/L 02/08/2025 5:15 AM [facility] LABORATORY MED[facility]INE Globulin 2.7 2.0 - 3.9 g/dL 02/08/2025 5:15 AM [facility] LAB[facility]ORY MED[facility] A/G Ratio 1.2 1.0 - 2.2 02/08/2025 5:15 AM [facility] LAB[facility]ORY MED[facility] AST/ALT Ratio 0.7 Reference Range Not Established 02/08/2025 5:15 AM [facility] LABORATORY MEDICINE eGFR (Creatinine) >60 >=60 mL/min/1.73m2 02/08/2025 5:15 AM [facility] OF LABORATORY MEDICINE Comment: [facility] utilizes CKD-EPI Creatinine 2020 to report eGFR. Values < 60 mL/min/1.73 m2 may indicate CKD if present for more than three months AND creatinine is at steady state. The eGFR provides a rough estimate of kidney function. For further guidance, please refer to the CKD: Adult Ad Terminal Makeup Operator Signature pathway. Creatinine Delta 0.03 See Comment 025 5:15 AM [facility]MENT OF LABORATORY MEDICINE Comment: Delta creatinine [...] 4:12 AM EST 02/08/2025 4:47 AM EST us Uriel Kaplan MD LAB BLOOD ORDERABLES Final R esult [facility] DEPARTMENT OF LABORATORY MEDICINE [address] [place] [address] * (ABNORMAL) Magnesium (02/08/2025 4:12 AM EST) Magnesium 1.5(L) 1.7 - 2.4 mg/dL 02/08/2025 5:15 AM [facility] LABORATORY MEDICINE Blood Venipuncture / Unknown 02/08/2025 4:12 AM EST 02/08/2025 4:47 AM EST Uriel Kaplan MD LAB BLOOD ORDERABLES Final R esult [facility] DEPARTMENT OF LABORATORY MEDICINE [address] [place] [address], [facility] [phone] * (ABNORMAL) CBC without differential (02/08/2025 4:12 AM EST) Pathologist [facility] WBC 5.1 4.0 - 11.0 x1000/ L 02/08/2025 4:57 AM [facility]MENT OF LABORATORY MEDICINE RBC 3.45(L) 4.00 - 6.00 M/ L 02/08/2025 4:57 AM [facility] LABORATORY MEDICINE Hemoglobin 10.3(L) 11.7 - 15.5 g/dL 02/08/2025 4:57 AM [facility] LABORATORY MEDICINE Hematocrit 30.20(L) 35.00 - 45.00 % 02/08/2025 4:57 AM [facility] LABORATORY MEDICINE MCV 87.5 80.0 - 100.0 fL 02/08/2025 4:57 AM [facility] LABORATORY MEDICINE MCH 29.9 27.0 - 33.0 pg 02/08/2025 4:57 AM [facility] LABORATORY MEDICINE MCHC 34.1 31.0 - 36.0 g/dL 02/08/2025 4:57 AM [facility] OF LABORATORY MEDICINE RDW-CV 12.4 11.0 - 15.0 % 02/08/2025 4:57 AM [facility] LAB[facility]ORY MED[facility] Platelets 286 150 - 420 x1000/ L 02/08/2025 4:57 AM [facility] LAB[facility]ORY MED[facility] MPV 11.3 8.0 - 12.0 fL 02/08/2025 4:57 AM [facility] LABORATORY MEDICINE ANC (Abs Neutrophil Count) 2.04 2.00 - 7.60 x 1000/ L 02/08/2025 4:57 AM [facility] LABORATORY MEDICINE Blood Venipuncture / Unknown 02/08/2025 4:12 AM EST 02/08/2025 4:47 AM EST Uriel Kaplan MD LAB BLOOD ORDERABLES Final R esult [facility] DEPARTMENT OF LABORATORY MEDICINE [address] [place] [address], [facility] [phone] * (ABNORMAL) Basic metabolic panel (02/07/2025 4:31 AM EST) Sodium 141 136 - 144 mmol/L 02/07/2025 5:15 AM [facility] LABORATORY MEDICINE Potassium 4.1 3.3 - 5.3 mmol/L 02/07/2025 5:15 AM [facility] LAB[facility]ORY MEDICINE Chloride 108(H) 98 - 107 mmol/L 02/07/2025 5:15 AM [facility] LABOR[facility]ORY MEDICINE CO2 24 20 - 30 mmol/L 02/07/2025 5:15 AM [facility] LAB[facility]ORY MED[facility] Anion Gap 9 7 - 17 02/07/2025 5:15 AM [facility]ORY [facility] Glucose 107(H) 70 - 100 mg/dL 02/07/2025 5:15 AM [facility] BUN 12 6 - 20 mg/dL 02/07/2025 5:15 AM [facility]ORY [facility] Creatinine 0.58 0.40 - 1.30 mg/dL 02/07/2025 5:15 AM [facility] LAB[facility]ORY MEDIC[facility] Calcium 9.6 8.8 - 10.2 mg/dL 02/07/2025 5:15 AM [facility] LAB[facility]ORY MEDIC[facility] BUN/Creatinine Ratio 20.7 8.0 - 23.0 02/07/2025 5:15 AM [facility] LABORATORY MEDICINE eGFR (Creatinine) >60 >=60 mL/min/1.73 m2 02/07/2025 5:15 AM EST [facility] DEPARTMENT OF LABORATORY MEDICINE Comment: [facility] utilizes CKD-EPI Creatinine 2020 to report eGFR. Values < 60 mL/min/1.73 m2 may indicate CKD if present for more than three months AND creatinine is at steady state. The eGFR provides a rough estimate of kidney function. For further guidance, please refer to the CKD: Adult Ad Terminal Makeup Operator Signature pathway. Creatinine Delta -0.02 See Comment 5:15 AM EST [facility] DEPARTMENT OF LABORATORY MEDICINE Comment: Delta creatinine [...] BLOOD ORDERABLES Final Result Performing Organization Address City/State/[facility] Co de Phone Number [facility] DEPARTMENT OF LABORATORY MEDICINE [address] [place] [address] * (ABNORMAL) CBC auto differential (02/07/2025 4:31 AM EST) WBC 6.7 4.0 - 11.0 x1000/ L 02/07/2025 4:57 AM EST [facility] DEPARTMENT OF LABORATORY MEDICINE RBC 3.71(L) 4.00 - 6.00 M/ L 02/07/2025 4:57 AM EST [facility] DEPARTMENT OF LABORATORY MEDICINE Hemoglobin 11.1(L) 11.7 - 15.5 g/dL 02/07/2025 4:57 AM EST [facility] DEPARTMENT OF LABORATORY MEDICINE Hematocrit 32.30(L) 35.00 - 45.00 % 02/07/2025 4:57 AM DE[facility]MENT OF LABORATORY MEDICINE MCV 87.1 80.0 - 100.0 fL 02/07/2025 4:57 AM [facility] MCH 29.9 27.0 - 33.0 pg 02/07/2025 4:57 AM DEPARTMENT OF LABORATORY MEDICINE MCHC 34.4 31.0 - 36.0 g/dL 02/07/2025 4:57 AM [facility] RDW-CV 12.3 11.0 - 15.0 % 02/07/2025 4:57 AM [facility] LABORATORY MEDICINE Platelets 292 150 - 420 x1000/ L 02/07/2025 4:57 AM [facility] MPV 11.3 8.0 - 12.0 fL 02/07/2025 4:57 AM [facility] OF LABORATORY MEDICINE Neutrophils 51.1 39.0 - 72.0 % 02/07/2025 4:57 AM [facility] LABORATORY MEDICINE Lymphocytes 39.0 17.0 - 50.0 % 02/07/2025 4:57 AM [facility] LABORATORY MEDICINE Monocytes 6.4 4.0 - 12.0 % 02/07/2025 4:57 AM [facility] LABOR[facility]ORY MEDIC[facility] Eosinophils 3.1 0.0 - 5.0 % 02/07/2025 4:57 AM [facility] LAB[facility]ORY MED[facility] Basophil 0.3 0.0 - 1.4 % 02/07/2025 4:57 AM [facility] LAB[facility]ORY MEDICINE Immature Granulocytes 0.1 0.0 - 1.0 % 02/07/2025 4:57 AM [facility] LAB[facility]ORY MED[facility] nRBC 0.0 0.0 - 1.0 % 02/07/2025 4:57 AM [facility] LABORATORY MEDICINE Absolute Lymphocyte Count 2.60 0.60 - 3.70 x 1000/ L 02/07/2025 4:57 AM [facility] LABORATORY MEDICINE Monocyte Absolute Count 0.43 0.00 - 1.00 x 1000/ L 02/07/2025 4:57 AM [facility] LABORATORY MEDICINE Eosinophil Absolute Count 0.21 0.00 - 1.00 x 1000/ L 02/07/2025 4:57 AM [facility] LABORATORY MEDICINE Basophil Absolute Count 0.02 0.00 - 1.00 x 1000/ L 02/07/2025 4:57 AM [facility] LAB[facility]ATORY MEDIC[facility] Absolute Immature Granulocyte Count 0.01 0.00 - 0.30 x 1000/ L 02/07/2025 4:57 AM [facility] LABORATORY MEDICINE Absolute nRBC 0.00 0.00 - 1.00 x 1000/ L 02/07/2025 4:57 AM [facility] LABORATORY MEDICINE ANC (Abs Neutrophil Count) 3.40 2.00 - 7.60 x 1000/ L 02/07/2025 4:57 AM [facility]MENT OF LABORATORY MEDICINE Blood ARM NEC / Unknown Venipuncture / Unknown 02/07/2025 4:31 AM EST 02/07/2025 4:48 AM EST us Gwen Morales MD LAB BLOOD ORDERABLES Final Result Performing Organization Address City/[facility] Co de Phone Number [facility] DEPARTMENT OF LABORATORY MEDICINE [address] [place] [address] * (ABNORMAL) Phosphorus (BH GH L LMW YH) (02/07/2025 4:31 AM EST) Phosphorus 5.0(H) 2.2 - 4.5 mg/dL 02/07/2025 5:15 AM DE[facility]MENT OF LABORATORY MEDICINE Blood ARM NEC / Unknown Venipuncture / Unknown 02/07/2025 4:31 AM EST 02/07/2025 4:48 AM EST Gwen Morales MD LAB BLOOD ORDERABLES Final Result [facility] DEPARTMENT OF LABORATORY MEDICINE [address] [place] [address] * Magnesium (02/07/2025 4:31 AM EST) Magnesium 1.7 1.7 - 2.4 mg/dL 02/07/2025 5:15 AM EST [facility] DEPARTMENT OF LABORATORY MEDICINE Blood ARM NEC / Unknown Venipuncture / Unknown 02/07/2025 4:31 AM EST 02/07/2025 4:48 AM EST us Gwen Morales MD LAB BLOOD ORDERABLES Final Result Performing Organization Address City/State/[facility] Co de Phone Number [facility] DEPARTMENT OF LABORATORY MEDICINE [address] [place] [address] * (ABNORMAL) Hepatic function panel (02/07/2025 4:31 AM EST) Total Bilirubin 0.3 <=1.2 mg/dL 02/08/20 5:15 AM DEPARTMENT OF LABORATORY MEDICINE Bilirubin, Direct 0.2 <=0.2 mg/dL 2024 5:15 AM DEPARTMENT OF LABORATORY MEDICINE Comment: Effective 11/26/2024 [facility] changed the Direct Bilirubin testing method from the Martha method to the Randox method. Alkaline Phosphatase 91 9 - 122 U/L 02/07/2025 5:15 AM DEPARTMENT OF LABORATORY MEDICINE Alanine Aminotransferase (ALT) 107(H) 10 - 35 U/L 02/07/2025 5:15 AM [facility]MENT OF LABORATORY MEDICINE Comment:Calcium dobesilate c an cause artificially low ALT results at therapeutic concentrations Aspartate Aminotransferase (AST) 87(H) 10 - 35 U/L 02/07/2025 5:15 AM [facility] OF LABORATORY MEDICINE AST/ALT Ratio 0.8 Reference Range Not Established 02/07/2025 5:15 AM [facility] OF LABORATORY MEDICINE Total Protein 6.3 5.9 - 8.3 g/dL 025 5:15 AM [facility] LABORATORY MEDICINE Albumin 3.5(L) 3.6 - 5.1 g/dL 02/07/2025 5:15 AM [facility] LAB[facility]ORY MEDICINE Globulin 2.8 2.0 - 3.9 g/dL 02/07/2025 5:15 AM [facility] OF LABORATORY MEDICINE A/G Ratio 1.3 1.0 - 2.2 02/07/2025 5:15 AM [facility] OF LABORATORY MEDICINE Blood ARM NEC / Unknown Venipuncture / Unknown 02/07/2025 4:31 AM EST 02/07/2025 4:48 AM EST Gwen Morales MD LAB BLOOD ORDERABLES Final Result Performing Organization Address City/State/[facility] Co de Phone Number [facility] DEPARTMENT OF LABORATORY MEDICINE [address] [place] [address] * Basic metabolic panel (02/06/2025 5:39 AM EST) Sodium 141 136 - 144 mmol/L 02/06/2025 7:02 AM [facility] OF LABORATORY MEDICINE Potassium 4.0 3.3 - 5.3 mmol/L 02/06/2025 7:02 AM [facility] LABORATORY MEDICINE Chloride 105 98 - 107 mmol/L 02/06/2025 7:02 AM [facility] LABORATORY MEDICINE CO2 25 20 - 30 mmol/L 02/06/2025 7:02 AM [facility] OF LABORATORY MEDICINE Anion Gap 11 7 - 17 02/06/2025 7:02 AM [facility] LABORATORY MEDICINE Glucose 87 70 - 100 mg/dL 02/06/2025 7:02 AM [facility] LABORATORY MEDICINE BUN 9 6 - 20 mg/dL 02/06/2025 7:02 AM [facility] LABORATORY MEDICINE Creatinine 0.60 0.40 - 1.30 mg/dL 02/06/2025 7:02 AM [facility] LABORATORY MEDICINE Calcium 9.2 8.8 - 10.2 mg/dL 02/06/2025 7:02 AM [facility] LABORATORY MEDICINE BUN/Creatinine Ratio 15.0 8.0 - 23.0 02/06/2025 7:02 AM [facility] LABORATORY MEDICINE eGFR (Creatinine) >60 >=60 mL/min/1.73m 2 02/06/2025 7:02 AM [facility]MENT OF LABORATORY MEDICINE Comment: [facility] utilizes CKD-EPI Creatinine 2020 to report eGFR. Values < 60 mL/min/1.73 m2 may indicate CKD if present for more than three months AND creatinine is at steady state. The eGFR provides a rough estimate of kidney function. For further guidance, please refer to the CKD: Adult Ad Terminal Makeup Operator Signature pathway. Creatinine Delta -0.01 See Comment 025 7:02 AM EST [facility] DEPARTMENT OF LABORATORY MEDICINE Comment: Delta creatinine [...] BLOOD ORDERABLES Final Result Performing Organization Address City/State/[facility] Co de Phone Number [facility] DEPARTMENT OF LABORATORY MEDICINE [address] [place] [address] * (ABNORMAL) CBC auto differential (02/06/2025 5:39 AM EST) [facility] WBC 4.9 4.0 - 11.0 x1000/ L 02/06/2025 6:49 AM EST [facility] DEPARTMENT OF LABORATORY MEDICINE RBC 3.66(L) 4.00 - 6.00 M/ L 02/06/2025 6:49 AM EST [facility] DEPARTMENT OF LABORATORY MEDICINE Hemoglobin 10.9(L) 11.7 - 15.5 g/dL 02/06/2025 6:49 AM EST [facility] DEPARTMENT OF LABORATORY MEDICINE Hematocrit 31.80(L) 35.00 - 45.00 % 02/06/2025 6:49 AM EST [facility] DEPARTMENT OF LABORATORY MEDICINE MCV 86.9 80.0 - 100.0 fL 02/06/2025 6:49 AM [facility] OF LABORATORY MEDICINE MCH 29.8 27.0 - 33.0 pg 02/06/2025 6:49 AM [facility] OF LABORATORY MEDICINE MCHC 34.3 31.0 - 36.0 g/dL 02/06/2025 6:49 AM [facility] OF LABORATORY MEDICINE RDW-CV 12.4 11.0 - 15.0 % 02/06/2025 6:49 AM [facility] OF LABORATORY MEDICINE Platelets 264 150 - 420 x1000/ L 02/06/2025 6:49 AM [facility] LABORATORY MEDICINE MPV 12.1(H) 8.0 - 12.0 fL 02/06/2025 6:49 AM [facility] LABORATORY MEDICINE Neutrophils 36.4(L) 39.0 - 72.0 % 02/06/2025 6:49 AM [facility] LABORATORY MEDICINE Lymphocytes 48.9 17.0 - 50.0 % 02/06/2025 6:49 AM [facility] LABORATORY MEDICINE Monocytes 10.0 4.0 - 12.0 % 02/06/2025 6:49 AM [facility] LABORATORY MEDICINE Eosinophils 4.1 0.0 - 5.0 % 02/06/2025 6:49 AM [facility] LABORATORY MEDICINE Basophil 0.4 0.0 - 1.4 % 02/06/2025 6:49 AM [facility] LAB[facility]ATORY MEDICINE Immature Granulocytes 0.2 0.0 - 1.0 % 02/06/2025 6:49 AM [facility] MED[facility] nRBC 0.0 0.0 - 1.0 % 02/06/2025 6:49 AM [facility] LABORATORY MEDICINE Absolute Lymphocyte Count 2.39 0.60 - 3.70 x 1000/ L 02/06/2025 6:49 AM [facility] LABORATORY MEDICINE Monocyte Absolute Count 0.49 0.00 - 1.00 x 1000/ L 02/06/2025 6:49 AM [facility] OF LABORATORY MEDICINE Eosinophil Absolute Count 0.20 0.00 - 1.00 x 1000/ L 02/06/2025 6:49 AM EST [facility] DEPARTMENT OF LABORATORY MEDICINE Basophil Absolute Count 0.02 0.00 - 1.00 x 1000/ L 02/06/2025 6:49 AM EST [facility] DEPARTMENT OF LABORATORY MEDICINE Absolute Immature Granulocyte Count 0.01 0.00 - 0.30 x 1000/ L 02/06/2025 6:49 AM EST [facility] DEPARTMENT OF LABORATORY MEDICINE Absolute nRBC 0.00 0.00 - 1.00 x 1000/ L 02/06/2025 6:49 AM EST [facility] DEPARTMENT OF LABORATORY MEDICINE ANC (Abs Neutrophil Count) 1.78(L) 2.00 - 7.60 x 1000/ L 02/06/2025 6:49 AM EST [facility] DEPARTMENT OF LABORATORY MEDICINE Blood Venipuncture / Unknown 02/06/2025 5:39 AM EST 02/06/2025 6:34 AM EST us Gwen Morales MD LAB BLOOD ORDERABLES Final Result Performing Organization Address City/[facility]/ZIP Co de Phone Number [facility] DEPARTMENT OF LABORATORY MEDICINE [address] [place] [address] * (ABNORMAL) Phosphorus (BH GH L LMW YH) (02/06/2025 5:39 AM EST) Phosphorus 5.2(H) 2.2 - 4.5 mg/dL 02/06/2025 7:18 AM EST [facility] DEPARTMENT OF LABORATORY MEDICINE Blood Venipuncture / Unknown 02/06/2025 5:39 AM EST 02/06/2025 6:34 AM EST us Gwen Morales MD LAB BLOOD ORDERABLES Final Result [facility] MEDIC[facility] [address] [place] [address] * Magnesium (02/06/2025 5:39 AM EST) Magnesium 2.0 1.7 - 2.4 mg/dL 02/06/2025 7:02 AM EST [facility] DEPARTMENT OF LABORATORY MEDICINE Blood Venipuncture / Unknown 02/06/2025 5:39 AM EST 02/06/2025 6:34 AM EST us Gwen Morales MD LAB BLOOD ORDERABLES Final Result [facility] DEPARTMENT OF LABORATORY MEDICINE [address] [place] [address], [facility] [phone] * (ABNORMAL) Hepatic function panel (02/06/2025 5:39 AM EST) Total Bilirubin 0.4 <=1.2 mg/dL 02/07/20 7:02 AM [facility]MENT OF LABORATORY MEDICINE Bilirubin, Direct 0.2 <=0.2 mg/dL 2024 7:02 AM [facility]MENT OF LABORATORY MEDICINE Comment: Effective 11/26/2024 [facility] changed the Direct Bilirubin testing method from the Martha method to the Randox method. Alkaline Phosphatase 90 9 - 122 U/L 02/06/2025 7:02 AM [facility]MENT OF LABORATORY MEDICINE Alanine Aminotransferase (ALT) 68(H) 10 - 35 U/L 02/06/2025 7:02 AM [facility] OF LABORATORY MEDICINE Comment:Calcium dobesilate c an cause artificially low ALT results at therapeutic concentrations Aspartate Aminotransferase (AST) 39(H) 10 - 35 U/L 02/06/2025 7:02 AM [facility] LABORATORY MEDICINE AST/ALT Ratio 0.6 Reference Range Not Established 02/06/2025 7:02 AM [facility] OF LABORATORY MEDICINE Total Protein 6.1 5.9 - 8.3 g/dL 025 7:02 AM [facility] LAB[facility]ATORY MEDIC[facility] Albumin 3.4(L) 3.6 - 5.1 g/dL 02/06/2025 7:02 AM [facility]ORY MED[facility] Globulin 2.7 2.0 - 3.9 g/dL 02/06/2025 7:02 AM [facility] LABORATORY MEDIC[facility] A/G Ratio 1.3 1.0 - 2.2 02/06/2025 7:02 AM [facility] OF LABORATORY MEDICINE Blood Venipuncture / Unknown 02/06/2025 5:39 AM EST 02/06/2025 6:34 AM EST us Gwen Morales MD LAB BLOOD ORDERABLES Final Result Performing Organization Address [facility]/ZIP Co de Phone Number [facility] DEPARTMENT OF LABORATORY MEDICINE [address] [place] [address] * (ABNORMAL) Urine microscopic ([facility] LMW Y) (02/05/2025 12:52 PM EST) Manual Microscopic Performed 02/05/2025 3:24 PM EST [facility] DEPARTMENT OF LABORATORY MEDICINE RBC/HPF >30(A) 0 - 2 /HPF 02/05/2025 3:24 PM EST [facility] DEPARTMENT OF LABORATORY MEDICINE WBC/HPF 3-5 0 - 5 /HPF 02/05/2025 3:24 PM EST [facility] DEPARTMENT OF LABORATORY MEDICINE Bacteria, UA Rare None-Rare /HPF 02/05/2025 3:24 PM EST [facility] DEPARTMENT OF LABORATORY MEDICINE Urine Squamous Epithelial Cells, UA Few None-Few /HPF 02/05/2025 3:24 PM EST [facility] DEPARTMENT OF LABORATORY MEDICINE Trans Epithelial Cells, UA Rare(A) None /HPF 02/05/2025 3:24 PM DE[facility]MENT OF LABORATORY MEDICINE Ca Oxalate Maria T, UA Rare(A) None /HPF 02/05/2025 3:24 PM DEPARTMENT OF LABORATORY MEDICINE RBC/HPF, UA 02/05/2025 3:24 PM EST [facility] DEPARTMENT OF LABORATORY MEDICINE WBC/HPF, UA 02/05/2025 3:24 PM EST [facility] DEPARTMENT OF LABORATORY MEDICINE Urine Collection / Unknown 02/05/2025 12:52 PM EST 02/05/2025 1:42 PM EST us Uriel Kaplan MD URINE ORDERABLES Final Resul t Performing Organization Address [facility]/ZIP Co de Phone Number [facility] DEPARTMENT OF LABORATORY MEDICINE [address] [place] [address] * (ABNORMAL) Urinalysis with culture reflex ([facility]) (02/05/2025 12:52 PM EST) Clarity, UA Cloudy(A) Clear 02/05/2025 2:45 PM DEPARTMENT OF LABORATORY MEDICINE Color, UA Coleman(A) Yellow, Colorless 02/05/2025 2:45 PM DEPARTMENT OF LABORATORY MEDICINE Specific [place], UA 1.014 1.005 - 1.030 02/05/2025 2:45 PM DEPARTMENT OF LABORATORY MEDICINE pH, UA 02/05/2025 2:45 PM DEPARTMENT OF LABORATORY MEDICINE Comment:Unable to complete u rine macroscopic testing due to color interference. Protein, UA 02/05/2025 2:45 PM DEPARTMENT OF LABORATORY MEDICINE Comment:Unable to complete u rine macroscopic testing due to color interference. Glucose, UA 02/05/2025 2:45 PM DEPARTMENT OF LABORATORY MEDICINE Comment:Unable to complete u rine macroscopic testing due to color interference. Ketones, UA 02/05/2025 2:45 PM DEPARTMENT OF LABORATORY MEDICINE Comment:Unable to complete u rine macroscopic testing due to color interference. Blood, UA 02/05/2025 2:45 PM [facility]PARTMENT OF LABORATORY MEDICINE Comment:Unable to complete u rine macroscopic testing due to color interference. Bilirubin, UA 02/05/2025 2:45 PM [facility]PARTMENT OF LABORATORY MEDICINE Comment:Unable to complete u rine macroscopic testing due to color interference. Leukocytes, UA 02/05/2025 2:45 PM [facility]PARTMENT OF LABORATORY MEDICINE Comment:Unable to complete u rine macroscopic testing due to color interference. Nitrite, UA 02/05/2025 2:45 PM DEPARTMENT OF LABORATORY MEDICINE Comment:Unable to complete u rine macroscopic testing due to color interference. Urobilinogen, UA 02/05/2025 2:45 PM DEPARTMENT OF LABORATORY MEDICINE Comment:Unable to complete u rine macroscopic testing due to color interference. Guerrero Top Tube Received ? Yes 02/05/2025 2:45 PM DEPARTMENT OF LABORATORY MEDICINE Urine Collection / Unknown 02/05/2025 12:52 PM EST 02/05/2025 1:42 PM EST Narrative [facility] DEPARTMENT OF LABORATORY MEDICINE - 02/05/2025 2:45 PM EST Unable to complete urine macroscopic testing due to color interference. us Uriel Kaplan MD URINE ORDERABLES Final Resul t Performing Organization Address [facility]/ZIP Co de Phone Number [facility] DEPARTMENT OF LABORATORY MEDICINE [address] [place] [address] * UA reflex to culture (02/05/2025 12:52 PM EST) Reflex Urine Culture See Comment 02/05/2025 4:01 PM EST [facility] DEPARTMENT OF LABORATORY MEDICINE Urine Collection / Unknown 02/05/2025 12:52 PM EST 02/05/2025 1:42 PM EST Narrative [facility] DEPARTMENT OF LABORATORY MEDICINE - 02/05/2025 4:01 PM EST Urine culture will be reflexed if indicated by urinalysis results. Please check microbiology results for urine culture. us Uriel Kaplan MD URINE ORDERABLES Final Resul t Performing Organization Address [facility] Co de Phone Number [facility] DEPARTMENT OF LABORATORY MEDICINE [address] [place] [address] * (ABNORMAL) Basic metabolic panel (02/05/2025 6:11 AM EST) Sodium 139 136 - 144 mmol/L 02/05/2025 7:29 AM EST [facility] DEPARTMENT OF LABORATORY MEDICINE Potassium 4.5 3.3 - 5.3 mmol/L 02/05/2025 7:29 AM EST [facility] DEPARTMENT OF LABORATORY MEDICINE Chloride 103 98 - 107 mmol/L 02/05/2025 7:29 AM DEPARTMENT OF LABORATORY MEDICINE CO2 26 20 - 30 mmol/L 02/05/2025 7:29 AM [facility] OF LABORATORY MEDICINE Anion Gap 10 7 - 17 02/05/2025 7:29 AM EST [facility] DEPARTMENT OF LABORATORY MEDICINE Glucose 123(H) 70 - 100 mg/dL 02/05/2025 7:29 AM [facility]MENT OF LABORATORY MEDICINE BUN 9 6 - 20 mg/dL 02/05/2025 7:29 AM [facility] OF LABORATORY MEDICINE Creatinine 0.61 0.40 - 1.30 mg/dL 02/05/2025 7:29 AM [facility] OF LABORATORY MEDICINE Calcium 9.3 8.8 - 10.2 mg/dL 02/05/2025 7:29 AM [facility]MENT OF LABORATORY MEDICINE BUN/Creatinine Ratio 14.8 8.0 - 23.0 02/05/2025 7:29 AM [facility]MENT OF LABORATORY MEDICINE eGFR (Creatinine) >60 >=60 mL/min/1.73 m2 02/05/2025 7:29 AM DEPARTMENT OF LABORATORY MEDICINE Comment: [facility] utilizes CKD-EPI Creatinine 2020 to report eGFR. Values < 60 mL/min/1.73 m2 may indicate CKD if present for more than three months AND creatinine is at steady state. The eGFR provides a rough estimate of kidney function. For further guidance, please refer to the CKD: Adult Ad Terminal Makeup Operator Signature pathway. Creatinine Delta 0.09 See Comment 7:29 AM [facility]PARTMENT OF LABORATORY MEDICINE Comment: Delta creatinine [...] Morales MD LAB BLOOD ORDERABLES Final Result [facility] DEPARTMENT OF LABORATORY MEDICINE [address] [place] [address] * (ABNORMAL) CBC auto differential (02/05/2025 6:11 AM [facility]) [facility] WBC 8.2 4.0 - 11.0 x1000/ L 02/05/2025 7:01 AM DEPARTMENT OF LABORATORY MEDICINE RBC 3.78(L) 4.00 - 6.00 M/ L 02/05/2025 7:01 AM [facility]MENT OF LABORATORY MEDICINE Hemoglobin 11.1(L) 11.7 - 15.5 g/dL 02/05/2025 7:01 AM [facility]MENT OF LABORATORY MEDICINE Hematocrit 33.20(L) 35.00 - 45.00 % 02/05/2025 7:01 AM [facility] LABORATORY MEDICINE MCV 87.8 80.0 - 100.0 fL 02/05/2025 7:01 AM [facility] LABORATORY MEDICINE MCH 29.4 27.0 - 33.0 pg 02/05/2025 7:01 AM [facility] OF LABORATORY MEDICINE MCHC 33.4 31.0 - 36.0 g/dL 02/05/2025 7:01 AM [facility] OF LABORATORY MEDICINE RDW-CV 12.2 11.0 - 15.0 % 02/05/2025 7:01 AM [facility] LABORATORY MEDICINE Platelets 264 150 - 420 x1000/ L 02/05/2025 7:01 AM [facility] LAB[facility]ORY MEDICINE MPV 12.0 8.0 - 12.0 fL 02/05/2025 7:01 AM [facility] LABORATORY MEDICINE Neutrophils 60.1 39.0 - 72.0 % 02/05/2025 7:01 AM [facility] LABORATORY MEDICINE Lymphocytes 30.5 17.0 - 50.0 % 02/05/2025 7:01 AM [facility] LAB[facility]ATORY MEDICINE Monocytes 6.5 4.0 - 12.0 % 02/05/2025 7:01 AM [facility] LABORATORY MEDICINE Eosinophils 2.6 0.0 - 5.0 % 02/05/2025 7:01 AM [facility] LABORATORY MEDICINE Basophil 0.1 0.0 - 1.4 % 02/05/2025 7:01 AM [facility] LABORATORY MEDICINE Immature Granulocytes 0.2 0.0 - 1.0 % 02/05/2025 7:01 AM [facility] LAB[facility]ATORY MEDICINE nRBC 0.0 0.0 - 1.0 % 02/05/2025 7:01 AM [facility] OF LABORATORY MEDICINE Absolute Lymphocyte Count 2.50 0.60 - 3.70 x 1000/ L 02/05/2025 7:01 AM EST [facility] DEPARTMENT OF LABORATORY MEDICINE Monocyte Absolute Count 0.53 0.00 - 1.00 x 1000/ L 02/05/2025 7:01 AM [facility]MENT OF LABORATORY MEDICINE Eosinophil Absolute Count 0.21 0.00 - 1.00 x 1000/ L 02/05/2025 7:01 AM [facility]MENT OF LABORATORY MEDICINE Basophil Absolute Count 0.01 0.00 - 1.00 x 1000/ L 02/05/2025 7:01 AM [facility] OF LABORATORY MEDICINE Absolute Immature Granulocyte Count 0.02 0.00 - 0.30 x 1000/ L 02/05/2025 7:01 AM [facility] LABORATORY MEDICINE Absolute nRBC 0.00 0.00 - 1.00 x 1000/ L 02/05/2025 7:01 AM [facility]MENT OF LABORATORY MEDICINE ANC (Abs Neutrophil Count) 4.93 2.00 - 7.60 x 1000/ L 02/05/2025 7:01 AM [facility]MENT OF LABORATORY MEDICINE Blood Venipuncture / Unknown 02/05/2025 6:11 AM EST 02/05/2025 6:52 AM EST Gwen Morales MD LAB BLOOD ORDERABLES Final Result [facility] DEPARTMENT OF LABORATORY MEDICINE [address] [place] [address] * (ABNORMAL) T3 (02/05/2025 6:11 AM EST) T3, Total 303.0(H) See Comment ng/dL 02/05/2025 7:29 AM EST [facility] DEPARTMENT OF LABORATORY MEDICINE Comment: Male & Non- Females: 72.0-153.0 ng/dL 1st Trimester: 92.0-224.0 ng/dL 2nd Trimester: 99.0-242.0 ng/dL Blood Venipuncture / Unknown 02/05/2025 6:11 AM EST 02/05/2025 6:52 AM EST Gwen Morales MD LAB BLOOD ORDERABLES Final Result Performing Organization Address [facility] Co de Phone Number [facility] DEPARTMENT OF LABORATORY MEDICINE [address] [place] [address] * (ABNORMAL) T4, free (02/05/2025 6:11 AM EST) Free T4 2.95(H) See Comment ng/dL 02/05/2025 7:29 AM EST [facility] DEPARTMENT OF LABORATORY MEDICINE Comment: For patients [...] BLOOD ORDERABLES Final Result Performing Organization Address City/[facility]/ZIP Co de Phone Number [facility] DEPARTMENT OF LABORATORY MEDICINE [address] [place] [address] * Phosphorus (BH GH L LMW YH) (02/05/2025 6:11 AM EST) Phosphorus 4.1 2.2 - 4.5 mg/dL 02/05/2025 8:19 AM EST [facility] DEPARTMENT OF LABORATORY MEDICINE Blood Venipuncture / Unknown 02/05/2025 6:11 AM EST 02/05/2025 6:52 AM EST Gwen Morales MD LAB BLOOD ORDERABLES Final Result Performing Organization Address City/[facility]/ZIP Co de Phone Number [facility] DEPARTMENT OF LABORATORY MEDICINE [address] [place] [address] * (ABNORMAL) Magnesium (02/05/2025 6:11 AM EST) Magnesium 1.6(L) 1.7 - 2.4 mg/dL 02/05/2025 7:29 AM EST [facility] DEPARTMENT OF LABORATORY MEDICINE Blood Venipuncture / Unknown 02/05/2025 6:11 AM EST 02/05/2025 6:52 AM EST Gwen Morales MD LAB BLOOD ORDERABLES Final Result Performing Organization Address [facility] de Phone Number [facility] OF LABORATORY MEDICINE [address] [place] [address] * (ABNORMAL) Hepatic function panel (02/05/2025 6:11 AM EST) Total Bilirubin 0.4 <=1.2 mg/dL 02/06/20 7:29 AM DEPARTMENT OF LABORATORY MEDICINE Bilirubin, Direct 0.2 <=0.2 mg/dL 2024 7:29 AM EST [facility] DEPARTMENT OF LABORATORY MEDICINE Comment: Effective 11/26/2024 [facility]-Chemistry changed the Direct Bilirubin testing method from the Martha method to the Randox method. Alkaline Phosphatase 102 9 - 122 U/L 02/05/2025 7:29 AM EST [facility] DEPARTMENT OF LABORATORY MEDICINE Alanine Aminotransferase (ALT) 104(H) 10 - 35 U/L 02/05/2025 7:29 AM DEPARTMENT OF LABORATORY MEDICINE Comment:Calcium dobesilate c an cause artificially low ALT results at therapeutic concentrations Aspartate Aminotransferase (AST) 73(H) 10 - 35 U/L 02/05/2025 7:29 AM EST [facility] DEPARTMENT OF LABORATORY MEDICINE AST/ALT Ratio 0.7 Reference Range Not Established 02/05/2025 7:29 AM EST [facility] DEPARTMENT OF LABORATORY MEDICINE Total Protein 6.1 5.9 - 8.3 g/dL 025 7:29 AM [facility]MENT OF LABORATORY MEDICINE Albumin 3.5(L) 3.6 - 5.1 g/dL 02/05/2025 7:29 AM [facility]MENT OF LABORATORY MEDICINE Globulin 2.6 2.0 - 3.9 g/dL 02/05/2025 7:29 AM DEPARTMENT OF LABORATORY MEDICINE A/G Ratio 1.3 1.0 - 2.2 02/05/2025 7:29 AM [facility]MENT OF LABORATORY MEDICINE Blood Venipuncture / Unknown 02/05/2025 6:11 AM EST 02/05/2025 6:52 AM EST us Gwen Morales MD LAB BLOOD ORDERABLES Final Result Performing Organization Address City/State/[facility] de Phone Number [facility] DEPARTMENT OF LABORATORY MEDICINE [address] [place] [address] * Basic metabolic panel (02/04/2025 5:07 AM EST) Sodium 138 136 - 144 mmol/L 02/04/2025 5:54 AM DEPARTMENT OF LABORATORY MEDICINE Potassium 4.2 3.3 - 5.3 mmol/L 02/04/2025 5:54 AM [facility]PARTMENT OF LABORATORY MEDICINE Chloride 104 98 - 107 mmol/L 02/04/2025 5:54 AM DEPARTMENT OF LABORATORY MEDICINE CO2 25 20 - 30 mmol/L 02/04/2025 5:54 AM DEPARTMENT OF LABORATORY MEDICINE Anion Gap 9 7 - 17 02/04/2025 5:54 AM [facility]MENT OF LABORATORY MEDICINE Glucose 97 70 - 100 mg/dL 02/04/2025 5:54 AM [facility]MENT OF LABORATORY MEDICINE BUN 7 6 - 20 mg/dL 02/04/2025 5:54 AM [facility]MENT OF LABORATORY MEDICINE Creatinine 0.52 0.40 - 1.30 mg/dL 02/04/2025 5:54 AM EST [facility] DEPARTMENT OF LABORATORY MEDICINE Calcium 9.4 8.8 - 10.2 mg/dL 02/04/2025 5:54 AM EST [facility] DEPARTMENT OF LABORATORY MEDICINE BUN/Creatinine Ratio 13.5 8.0 - 23.0 02/04/2025 5:54 AM EST [facility] DEPARTMENT OF LABORATORY MEDICINE eGFR (Creatinine) >60 >=60 mL/min/1.73m 2 02/04/2025 5:54 AM DEPARTMENT OF LABORATORY MEDICINE Comment: [facility] utilizes CKD-EPI Creatinine 2020 to report eGFR. Values < 60 mL/min/1.73 m2 may indicate CKD if present for more than three months AND creatinine is at steady state. The eGFR provides a rough estimate of kidney function. For further guidance, please refer to the CKD: Adult Ad Terminal Makeup Operator Signature pathway. Creatinine Delta -0.08 See Comment 5:54 AM DEPARTMENT OF LABORATORY MEDICINE Comment: Delta creatinine [...] Morales MD LAB BLOOD ORDERABLES Final Result [facility] DEPARTMENT OF LABORATORY MEDICINE [address] [place] [address] [phone] * (ABNORMAL) CBC auto differential (02/04/2025 5:07 AM EST) Pathologist [facility] WBC 8.3 4.0 - 11.0 x1000/ L 02/04/2025 5:26 AM DEPARTMENT OF LABORATORY MEDICINE RBC 3.87(L) 4.00 - 6.00 M/ L 02/04/2025 5:26 AM DEPARTMENT OF LABORATORY MEDICINE Hemoglobin 11.2(L) 11.7 - 15.5 g/dL 02/04/2025 5:26 AM DEPARTMENT OF LABORATORY MEDICINE Hematocrit 33.30(L) 35.00 - 45.00 % 02/04/2025 5:26 AM DEPARTMENT OF LABORATORY MEDICINE MCV 86.0 80.0 - 100.0 fL 02/04/2025 5:26 AM DEPARTMENT OF LABORATORY MEDICINE MCH 28.9 27.0 - 33.0 pg 02/04/2025 5:26 AM DEPARTMENT OF LABORATORY MEDICINE MCHC 33.6 31.0 - 36.0 g/dL 02/04/2025 5:26 AM [facility] OF LABORATORY MEDICINE RDW-CV 12.5 11.0 - 15.0 % 02/04/2025 5:26 AM DEPARTMENT OF LABORATORY MEDICINE Platelets 277 150 - 420 x1000/ L 02/04/2025 5:26 AM DEPARTMENT OF LABORATORY MEDICINE MPV 11.4 8.0 - 12.0 fL 02/04/2025 5:26 AM DEPARTMENT OF LABORATORY MEDICINE Neutrophils 54.9 39.0 - 72.0 % 02/04/2025 5:26 AM DEPARTMENT OF LABORATORY MEDICINE Lymphocytes 34.9 17.0 - 50.0 % 02/04/2025 5:26 AM DEPARTMENT OF LABORATORY MEDICINE Monocytes 7.5 4.0 - 12.0 % 02/04/2025 5:26 AM [facility]MENT OF LABORATORY MEDICINE Eosinophils 2.3 0.0 - 5.0 % 02/04/2025 5:26 AM DEPARTMENT OF LABORATORY MEDICINE Basophil 0.2 0.0 - 1.4 % 02/04/2025 5:26 AM DE[facility]MENT OF LABORATORY MEDICINE Immature Granulocytes 0.2 0.0 - 1.0 % 02/04/2025 5:26 AM [facility]MENT OF LABORATORY MEDICINE nRBC 0.0 0.0 - 1.0 % 02/04/2025 5:26 AM DEPARTMENT OF LABORATORY MEDICINE Absolute Lymphocyte Count 2.89 0.60 - 3.70 x 1000/ L 02/04/2025 5:26 AM EST [facility] DEPARTMENT OF LABORATORY MEDICINE Monocyte Absolute Count 0.62 0.00 - 1.00 x 1000/ L 02/04/2025 5:26 AM DEPARTMENT OF LABORATORY MEDICINE Eosinophil Absolute Count 0.19 0.00 - 1.00 x 1000/ L 02/04/2025 5:26 AM DEPARTMENT OF LABORATORY MEDICINE Basophil Absolute Count 0.02 0.00 - 1.00 x 1000/ L 02/04/2025 5:26 AM DEPARTMENT OF LABORATORY MEDICINE Absolute Immature Granulocyte Count 0.02 0.00 - 0.30 x 1000/ L 02/04/2025 5:26 AM DEPARTMENT OF LABORATORY MEDICINE Absolute nRBC 0.00 0.00 - 1.00 x 1000/ L 02/04/2025 5:26 AM DEPARTMENT OF LABORATORY MEDICINE ANC (Abs Neutrophil Count) 4.54 2.00 - 7.60 x 1000/ L 02/04/2025 5:26 AM DEPARTMENT OF LABORATORY MEDICINE Blood Venipuncture / Unknown 02/04/2025 5:07 AM EST 02/04/2025 5:20 AM EST us Gwen Morales MD LAB BLOOD ORDERABLES Final Result [facility] DEPARTMENT OF LABORATORY MEDICINE [address] [place] [address] * (ABNORMAL) T3 (02/04/2025 5:07 AM EST) T3, Total 242.0(H) See Comment ng/dL 02/04/2025 5:54 AM EST [facility] DEPARTMENT OF LABORATORY MEDICINE Comment: Male & Non- Females: 72.0-153.0 ng/dL 1st Trimester: 92.0-224.0 ng/dL 2nd Trimester: 99.0-242.0 ng/dL Blood Venipuncture / Unknown 02/04/2025 5:07 AM EST 02/04/2025 5:20 AM EST Result [facility] Gwen Morales MD LAB BLOOD ORDERABLES Final Result Performing Organization Address [facility] Co de Phone Number [facility] DEPARTMENT OF LABORATORY MEDICINE [address] [place] [address] * (ABNORMAL) T4, free (02/04/2025 5:07 AM EST) Free T4 4.43(H) See Comment ng/dL 02/04/2025 5:54 AM EST [facility] DEPARTMENT OF LABORATORY MEDICINE Comment: For patients [...] 5:07 AM EST 02/04/2025 5:20 AM EST Result [facility] Gwen Morales MD LAB BLOOD ORDERABLES Final Result Performing Organization Address [facility] Co de Phone Number [facility] DEPARTMENT OF LABORATORY MEDICINE [address] [place] [address] * Phosphorus (BH GH L LMW YH) (02/04/2025 5:07 AM EST) Phosphorus 4.2 2.2 - 4.5 mg/dL 02/04/2025 5:54 AM EST [facility] DEPARTMENT OF LABORATORY MEDICINE Blood Venipuncture / Unknown 02/04/2025 5:07 AM EST 02/04/2025 5:20 AM EST Gwen Morales MD LAB BLOOD ORDERABLES Final Result Performing Organization Address City/[facility]/ZIP Co de Phone Number [facility] LABORATORY MEDICINE [address] [place] [address] * (ABNORMAL) Magnesium (02/04/2025 5:07 AM EST) Magnesium 1.6(L) 1.7 - 2.4 mg/dL 02/04/2025 5:54 AM EST [facility] DEPARTMENT OF LABORATORY MEDICINE Blood Venipuncture / Unknown 02/04/2025 5:07 AM EST 02/04/2025 5:20 AM EST Gwen Morales MD LAB BLOOD ORDERABLES Final Result Performing Organization Address [facility] Co de Phone Number [facility] OF LABORATORY MEDICINE [address] [place] [address] * (ABNORMAL) Hepatic function panel (02/04/2025 5:07 AM EST) Total Bilirubin 0.4 <=1.2 mg/dL 02/05/20 5:54 AM DEPARTMENT OF LABORATORY MEDICINE Bilirubin, Direct 0.2 <=0.2 mg/dL 2024 5:54 AM DEPARTMENT OF LABORATORY MEDICINE Comment: Effective 11/26/2024 [facility]-Chemistry changed the Direct Bilirubin testing method from the Martha method to the Randox method. Alkaline Phosphatase 99 9 - 122 U/L 02/04/2025 5:54 AM DEPARTMENT OF LABORATORY MEDICINE Alanine Aminotransferase (ALT) 56(H) 10 - 35 U/L 02/04/2025 5:54 AM DEPARTMENT OF LABORATORY MEDICINE Comment:Calcium dobesilate c an cause artificially low ALT results at therapeutic concentrations Aspartate Aminotransferase (AST) 117(H) 10 - 35 U/L 02/04/2025 5:54 AM EST [facility] DEPARTMENT OF LABORATORY MEDICINE AST/ALT Ratio 2.1 Reference Range Not Established 02/04/2025 5:54 AM DEPARTMENT OF LABORATORY MEDICINE Total Protein 6.3 5.9 - 8.3 g/dL 025 5:54 AM [facility]MENT OF LABORATORY MEDICINE Albumin 3.5(L) 3.6 - 5.1 g/dL 02/04/2025 5:54 AM [facility]MENT OF LABORATORY MEDICINE Globulin 2.8 2.0 - 3.9 g/dL 02/04/2025 5:54 AM DEPARTMENT OF LABORATORY MEDICINE A/G Ratio 1.3 1.0 - 2.2 02/04/2025 5:54 AM DEPARTMENT OF LABORATORY MEDICINE Blood Venipuncture / Unknown 02/04/2025 5:07 AM EST 02/04/2025 5:20 AM EST us Gwen Morales MD LAB BLOOD ORDERABLES Final Result Performing Organization Address City/State/[facility] Co de Phone Number [facility] DEPARTMENT OF LABORATORY MEDICINE [address] [place] [address] * (ABNORMAL) Basic metabolic panel (02/03/2025 5:03 AM EST) Sodium 138 136 - 144 mmol/L 02/03/2025 6:41 AM DEPARTMENT OF LABORATORY MEDICINE Potassium 4.2 3.3 - 5.3 mmol/L 02/03/2025 6:41 AM DEPARTMENT OF LABORATORY MEDICINE Chloride 103 98 - 107 mmol/L 02/03/2025 6:41 AM DEPARTMENT OF LABORATORY MEDICINE CO2 25 20 - 30 mmol/L 02/03/2025 6:41 AM DEPARTMENT OF LABORATORY MEDICINE Anion Gap 10 7 - 17 02/03/2025 6:41 AM DEPARTMENT OF LABORATORY MEDICINE Glucose 101(H) 70 - 100 mg/dL 02/03/2025 6:41 AM [facility]MENT OF LABORATORY MEDICINE BUN 14 6 - 20 mg/dL 02/03/2025 6:41 AM [facility]MENT OF LABORATORY MEDICINE Creatinine 0.60 0.40 - 1.30 mg/dL 02/03/2025 6:41 AM [facility]MENT OF LABORATORY MEDICINE Calcium 9.5 8.8 - 10.2 mg/dL 02/03/2025 6:41 AM EST [facility] DEPARTMENT OF LABORATORY MEDICINE BUN/Creatinine Ratio 23.3(H) 8.0 - 23.0 02/03/2025 6:41 AM EST [facility] DEPARTMENT OF LABORATORY MEDICINE eGFR (Creatinine) >60 >=60 mL/min/1.73 m2 02/03/2025 6:41 AM EST [facility] DEPARTMENT OF LABORATORY MEDICINE Comment: [facility] utilizes CKD-EPI Creatinine 2020 to report eGFR. Values < 60 mL/min/1.73 m2 may indicate CKD if present for more than three months AND creatinine is at steady state. The eGFR provides a rough estimate of kidney function. For further guidance, please refer to the CKD: Adult Ad Terminal Makeup Operator Signature pathway. Creatinine Delta 0.12 See Comment 02/03/2025 6:41 AM DEPARTMENT OF LABORATORY MEDICINE Comment: Delta creatinine [...] Morales MD LAB BLOOD ORDERABLES Final Result [facility] DEPARTMENT OF LABORATORY MEDICINE [address] [place] [address] * (ABNORMAL) CBC auto differential (02/03/2025 5:03 AM EST) [facility] WBC 7.2 4.0 - 11.0 x1000/ L 02/03/2025 6:35 AM EST [facility] DEPARTMENT OF LABORATORY MEDICINE RBC 3.82(L) 4.00 - 6.00 M/ L 02/03/2025 6:35 AM DEPARTMENT OF LABORATORY MEDICINE Hemoglobin 11.7 11.7 - 15.5 g/dL 02/03/2025 6:35 AM DEPARTMENT OF LABORATORY MEDICINE Hematocrit 33.00(L) 35.00 - 45.00 % 02/03/2025 6:35 AM [facility]MENT OF LABORATORY MEDICINE MCV 86.4 80.0 - 100.0 fL 02/03/2025 6:35 AM DEPARTMENT OF LABORATORY MEDICINE MCH 30.6 27.0 - 33.0 pg 02/03/2025 6:35 AM [facility]MENT OF LABORATORY MEDICINE MCHC 35.5 31.0 - 36.0 g/dL 02/03/2025 6:35 AM [facility]PARTMENT OF LABORATORY MEDICINE RDW-CV 12.5 11.0 - 15.0 % 02/03/2025 6:35 AM [facility] OF LABORATORY MEDICINE Platelets 263 150 - 420 x1000/ L 02/03/2025 6:35 AM [facility] OF LABORATORY MEDICINE MPV 11.9 8.0 - 12.0 fL 02/03/2025 6:35 AM [facility] OF LABORATORY MEDICINE Neutrophils 46.6 39.0 - 72.0 % 02/03/2025 6:35 AM [facility] OF LABORATORY MEDICINE Lymphocytes 42.1 17.0 - 50.0 % 02/03/2025 6:35 AM [facility] OF LABORATORY MEDICINE Monocytes 8.6 4.0 - 12.0 % 02/03/2025 6:35 AM DE[facility]MENT OF LABORATORY MEDICINE Eosinophils 2.5 0.0 - 5.0 % 02/03/2025 6:35 AM [facility] OF LABORATORY MEDICINE Basophil 0.1 0.0 - 1.4 % 02/03/2025 6:35 AM [facility] OF LABORATORY MEDICINE Immature Granulocytes 0.1 0.0 - 1.0 % 02/03/2025 6:35 AM [facility] OF LABORATORY MEDICINE nRBC 0.0 0.0 - 1.0 % 02/03/2025 6:35 AM DE[facility]MENT OF LABORATORY MEDICINE Absolute Lymphocyte Count 3.03 0.60 - 3.70 x 1000/ L 02/03/2025 6:35 AM EST [facility] DEPARTMENT OF LABORATORY MEDICINE Monocyte Absolute Count 0.62 0.00 - 1.00 x 1000/ L 02/03/2025 6:35 AM EST [facility] DEPARTMENT OF LABORATORY MEDICINE Eosinophil Absolute Count 0.18 0.00 - 1.00 x 1000/ L 02/03/2025 6:35 AM EST [facility] DEPARTMENT OF LABORATORY MEDICINE Basophil Absolute Count 0.01 0.00 - 1.00 x 1000/ L 02/03/2025 6:35 AM DEPARTMENT OF LABORATORY MEDICINE Absolute Immature Granulocyte Count 0.01 0.00 - 0.30 x 1000/ L 02/03/2025 6:35 AM [facility]MENT OF LABORATORY MEDICINE Absolute nRBC 0.00 0.00 - 1.00 x 1000/ L 02/03/2025 6:35 AM DEPARTMENT OF LABORATORY MEDICINE ANC (Abs Neutrophil Count) 3.35 2.00 - 7.60 x 1000/ L 02/03/2025 6:35 AM DEPARTMENT OF LABORATORY MEDICINE Blood Venipuncture / Unknown 02/03/2025 5:03 AM EST 02/03/2025 6:01 AM EST us Gwen Morales MD LAB BLOOD ORDERABLES Final Result Performing Organization Address City/State/[facility] Co de Phone Number [facility] DEPARTMENT OF LABORATORY MEDICINE [address] [place] [address] * (ABNORMAL) T3 (02/03/2025 5:03 AM EST) T3, Total 241.0(H) See Comment ng/dL 02/03/2025 6:41 AM EST [facility] DEPARTMENT OF LABORATORY MEDICINE Comment: Male & Non- Females: 72.0-153.0 ng/dL 1st Trimester: 92.0-224.0 ng/dL 2nd Trimester: 99.0-242.0 ng/dL Blood Venipuncture / Unknown 02/03/2025 5:03 AM EST 02/03/2025 6:01 AM EST us Gwen Morales MD LAB BLOOD ORDERABLES Final Result Performing Organization Address [facility] de Phone Number [facility] LABORATORY MEDICINE [address] [place] [address] * (ABNORMAL) T4, free (02/03/2025 5:03 AM EST) Free T4 4.09(H) See Comment ng/dL 02/03/2025 6:41 AM EST [facility] DEPARTMENT OF LABORATORY MEDICINE Comment: For patients [...] BLOOD ORDERABLES Final Result Performing Organization Address [facility] de Phone Number [facility] DEPARTMENT OF LABORATORY MEDICINE [address] [place] [address] * (ABNORMAL) Phosphorus (BH GH L LMW YH) (02/03/2025 5:03 AM EST) Phosphorus 5.1(H) 2.2 - 4.5 mg/dL 02/03/2025 7:16 AM EST [facility] DEPARTMENT OF LABORATORY MEDICINE Blood Venipuncture / Unknown 02/03/2025 5:03 AM EST 02/03/2025 6:01 AM EST Gwen Morales MD LAB BLOOD ORDERABLES Final Result Performing Organization Address [facility] Co de Phone Number [facility] DEPARTMENT OF LABORATORY MEDICINE [address] [place] [address] * Magnesium (02/03/2025 5:03 AM EST) Pathologist [facility] Magnesium 1.8 1.7 - 2.4 mg/dL 02/03/2025 6:41 AM EST [facility] DEPARTMENT OF LABORATORY MEDICINE Blood Venipuncture / Unknown 02/03/2025 5:03 AM EST 02/03/2025 6:01 AM EST us Gwen Morales MD LAB BLOOD ORDERABLES Final Result [facility] DEPARTMENT LABORATORY MEDICINE [address] [place] [address] * (ABNORMAL) Hepatic function panel (02/03/2025 5:03 AM EST) Pathologist [facility] Total Bilirubin 0.4 <=1.2 mg/dL 02/04/20 6:41 AM DEPARTMENT OF LABORATORY MEDICINE Bilirubin, Direct 0.2 <=0.2 mg/dL 2024 6:41 AM DEPARTMENT OF LABORATORY MEDICINE Comment: Effective 11/26/2024 [facility] changed the Direct Bilirubin testing method from the Martha method to the Randox method. Alkaline Phosphatase 73 9 - 122 U/L 02/03/2025 6:41 AM DEPARTMENT OF LABORATORY MEDICINE Alanine Aminotransferase (ALT) 34 10 - 35 U/L 02/03/2025 6:41 AM DEPARTMENT OF LABORATORY MEDICINE Comment:Calcium dobesilate c an cause artificially low ALT results at therapeutic concentrations Aspartate Aminotransferase (AST) 22 10 - 35 U/L 02/03/2025 6:41 AM DEPARTMENT OF LABORATORY MEDICINE AST/ALT Ratio 0.6 Reference Range Not Established 02/03/2025 6:41 AM DEPARTMENT OF LABORATORY MEDICINE Total Protein 6.0 5.9 - 8.3 g/dL 025 6:41 AM DEPARTMENT OF LABORATORY MEDICINE Albumin 3.4(L) 3.6 - 5.1 g/dL 02/03/2025 6:41 AM EST [facility] DEPARTMENT OF LABORATORY MEDICINE Globulin 2.6 2.0 - 3.9 g/dL 02/03/2025 6:41 AM EST [facility] DEPARTMENT OF LABORATORY MEDICINE A/G Ratio 1.3 1.0 - 2.2 02/03/2025 6:41 AM EST [facility] DEPARTMENT OF LABORATORY MEDICINE Blood Venipuncture / Unknown 02/03/2025 5:03 AM EST 02/03/2025 6:01 AM EST Gwen Morales MD LAB BLOOD ORDERABLES Final Result Performing Organization Address [facility] Co de Phone Number [facility] DEPARTMENT OF LABORATORY MEDICINE [address] [place] [address] * GALA by IFA w/rflx to dsDNA, HORSE TRAINER, SM, SSA, and SSB Abs (LMW YH) (02/03/2025 5:02 AM EST) GALA <1:80 <1:80 (Negative ) 02/03/2025 3:20 PM EST [facility] DEPARTMENT OF LABORATORY MEDICINE Comment: Specimen tested using a HEp-2 indirect immunofluorescent assay. Effective November 18, 2023, GALA testing will be performed on the [employer] IFA platform. Please note; previous results may not directly correlate due to method change. Blood Venipuncture / Unknown 02/03/2025 5:02 AM EST 02/03/2025 6:01 AM EST us Uriel Kaplan MD LAB BLOOD ORDERABLES Final R esult [facility] DEPARTMENT OF LABORATORY MEDICINE [address] [place] [address] * Urine culture (02/02/2025 9:36 PM EST) Urine Culture, Routine Less than 10,000 CFU/mL. Clinical significance is unlikely for organism(s) present in quantities of less than 10,000 CFU/mL. 02/03/2025 6:01 PM EST [facility] DEPARTMENT OF LABORATORY MEDICINE Urine URINE SPECIMEN OBTAINED BY CLEAN CATCH PROCEDURE / Unknown Collection / Unknown 02/02/2025 9:36 PM EST 02/02/2025 9:57 PM EST Narrative [facility] DEPARTMENT OF LABORATORY MEDICINE - 02/03/2025 6:01 PM EST Culture, organism identification, and/or susceptibility results may have been generated with a non-FDA approved method. All methods used in this report have been validated by [facility] Microbiology for clinical use. Manjinder Maguire MD MICROBIOLOGY - GENERAL ORDE RABLES Final Result [facility] DEPARTMENT OF LABORATORY MEDICINE [address] [place] [address] * NR FL Less Than 1 Hour Exam (02/02/2025 1:48 PM EST) Narrative RAD4 - 02/02/2025 1:49 PM EST DISCLAIMER This procedure captures images only. There is no report. Rodriguez Shukla MD IMG FLUOROSCOPY ORDERABLES Final Result RAD4 * CBC auto differential (02/02/2025 4:35 AM EST) WBC 7.6 4.0 - 11.0 x1000/ L 02/02/2025 5:12 AM EST [facility] DEPARTMENT OF LABORATORY MEDICINE RBC 4.04 4.00 - 6.00 M/ L 02/02/2025 5:12 AM EST [facility] DEPARTMENT OF LABORATORY MEDICINE Hemoglobin 11.9 11.7 - 15.5 g/dL 02/02/2025 5:12 AM EST [facility] DEPARTMENT OF LABORATORY MEDICINE Hematocrit 35.00 35.00 - 45.00 % 02/02/2025 5:12 AM EST [facility] DEPARTMENT OF LABORATORY MEDICINE MCV 86.6 80.0 - 100.0 fL 02/02/2025 5:12 AM EST [facility] DEPARTMENT OF LABORATORY MEDICINE MCH 29.5 27.0 - 33.0 pg 02/02/2025 5:12 AM EST [facility] DEPARTMENT OF LABORATORY MEDICINE MCHC 34.0 31.0 - 36.0 g/dL 02/02/2025 5:12 AM DEPARTMENT OF LABORATORY MEDICINE RDW-CV 12.7 11.0 - 15.0 % 02/02/2025 5:12 AM DEPARTMENT OF LABORATORY MEDICINE Platelets 284 150 - 420 x1000/ L 02/02/2025 5:12 AM DEPARTMENT OF LABORATORY MEDICINE MPV 11.5 8.0 - 12.0 fL 02/02/2025 5:12 AM DEPARTMENT OF LABORATORY MEDICINE Neutrophils 50.6 39.0 - 72.0 % 02/02/2025 5:12 AM DEPARTMENT OF LABORATORY MEDICINE Lymphocytes 39.7 17.0 - 50.0 % 02/02/2025 5:12 AM DEPARTMENT OF LABORATORY MEDICINE Monocytes 7.0 4.0 - 12.0 % 02/02/2025 5:12 AM DEPARTMENT OF LABORATORY MEDICINE Eosinophils 2.5 0.0 - 5.0 % 02/02/2025 5:12 AM DEPARTMENT OF LABORATORY MEDICINE Basophil 0.1 0.0 - 1.4 % 02/02/2025 5:12 AM DEPARTMENT OF LABORATORY MEDICINE Immature Granulocytes 0.1 0.0 - 1.0 % 02/02/2025 5:12 AM DEPARTMENT OF LABORATORY MEDICINE nRBC 0.0 0.0 - 1.0 % 02/02/2025 5:12 AM DEPARTMENT OF LABORATORY MEDICINE Absolute Lymphocyte Count 3.02 0.60 - 3.70 x 1000/ L 02/02/2025 5:12 AM DEPARTMENT OF LABORATORY MEDICINE Monocyte Absolute Count 0.53 0.00 - 1.00 x 1000/ L 02/02/2025 5:12 AM DEPARTMENT OF LABORATORY MEDICINE Eosinophil Absolute Count 0.19 0.00 - 1.00 x 1000/ L 02/02/2025 5:12 AM DEPARTMENT OF LABORATORY MEDICINE Basophil Absolute Count 0.01 0.00 - 1.00 x 1000/ L 02/02/2025 5:12 AM DEPARTMENT OF LABORATORY MEDICINE Absolute Immature Granulocyte Count 0.01 0.00 - 0.30 x 1000/ L 02/02/2025 5:12 AM DEPARTMENT OF LABORATORY MEDICINE Absolute nRBC 0.00 0.00 - 1.00 x 1000/ L 02/02/2025 5:12 AM DEPARTMENT OF LABORATORY MEDICINE ANC (Abs Neutrophil Count) 3.84 2.00 - 7.60 x 1000/ L 02/02/2025 5:12 AM DEPARTMENT OF LABORATORY MEDICINE Blood Venipuncture / Unknown 02/02/2025 4:35 AM EST 02/02/2025 4:54 AM EST us Dontae Rodriguez MD LAB BLOOD ORDERABLES Final Resul t [facility] DEPARTMENT OF LABORATORY MEDICINE [address] [place] [address] * Basic metabolic panel (02/02/2025 4:35 AM EST) Sodium 140 136 - 144 mmol/L 02/02/2025 5:31 AM DEPARTMENT OF LABORATORY MEDICINE Potassium 3.9 3.3 - 5.3 mmol/L 02/02/2025 5:31 AM DEPARTMENT OF LABORATORY MEDICINE Chloride 106 98 - 107 mmol/L 02/02/2025 5:31 AM DEPARTMENT OF LABORATORY MEDICINE CO2 23 20 - 30 mmol/L 02/02/2025 5:31 AM DEPARTMENT OF LABORATORY MEDICINE Anion Gap 11 7 - 17 02/02/2025 5:31 AM DEPARTMENT OF LABORATORY MEDICINE Glucose 94 70 - 100 mg/dL 02/02/2025 5:31 AM DEPARTMENT OF LABORATORY MEDICINE BUN 9 6 - 20 mg/dL 02/02/2025 5:31 AM DEPARTMENT OF LABORATORY MEDICINE Creatinine 0.48 0.40 - 1.30 mg/dL 02/02/2025 5:31 AM DEPARTMENT OF LABORATORY MEDICINE Calcium 9.5 8.8 - 10.2 mg/dL 02/02/2025 5:31 AM DEPARTMENT OF LABORATORY MEDICINE BUN/Creatinine Ratio 18.8 8.0 - 23.0 02/02/2025 5:31 AM DEPARTMENT OF LABORATORY MEDICINE eGFR (Creatinine) >60 >=60 mL/min/1.73m 2 02/02/2025 5:31 AM EST [facility] DEPARTMENT OF LABORATORY MEDICINE Comment: [facility] utilizes CKD-EPI Creatinine 2020 to report eGFR. Values < 60 mL/min/1.73 m2 may indicate CKD if present for more than three months AND creatinine is at steady state. The eGFR provides a rough estimate of kidney function. For further guidance, please refer to the CKD: Adult Ad Terminal Makeup Operator Signature pathway. Creatinine Delta -0.07 See Comment 025 5:31 AM EST [facility] DEPARTMENT OF LABORATORY MEDICINE Comment: Delta creatinine [...] ORDERABLES Final Resul t Performing Organization Address City/State/[facility] Co de Phone Number [facility] DEPARTMENT OF LABORATORY MEDICINE [address] [place] [address] * (ABNORMAL) T3 (02/02/2025 4:35 AM EST) T3, Total 274.0(H) See Comment ng/dL 02/02/2025 5:31 AM EST [facility] DEPARTMENT OF LABORATORY MEDICINE Comment: Male & Non- Females: 72.0-153.0 ng/dL 1st Trimester: 92.0-224.0 ng/dL 2nd Trimester: 99.0-242.0 ng/dL Blood Venipuncture / Unknown 02/02/2025 4:35 AM EST 02/02/2025 4:54 AM EST us Dontae Rodriguez MD LAB BLOOD ORDERABLES Final Resul t Performing Organization Address [facility] Co de Phone Number [facility] DEPARTMENT OF LABORATORY MEDICINE [address] [place] [address] * (ABNORMAL) T4, free (02/02/2025 4:35 AM EST) Free T4 5.57(H) See Comment ng/dL 02/02/2025 5:31 AM EST [facility] DEPARTMENT OF LABORATORY MEDICINE Comment: For patients [...] ORDERABLES Final Resul t Performing Organization Address [facility] Co de Phone Number [facility] DEPARTMENT OF LABORATORY MEDICINE [address] [place] [address] * MRI Chest w wo IV Contrast (02/01/2025 2:01 PM EST) Anatomical Region Laterality Modality Chest Magnetic Resonan ce 02/01/2025 2:40 PM EST Impressions 02/01/2025 3:40 PM EST 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 Report initiated by: Dick Madrigal MD Reported and signed by: Ana M Moreira MD [facility] Narrative 02/01/2025 3:40 PM EST MRI CHEST W WO IV CONTRAST Date: 02/01/2025 2:01 PM INDICATION: 39F [facility] evaluation for anterior mediastinal mass premedication per primary team COMPARISON: Outside facility CT chest, abdomen, and pelvis dated 01/26/2025 viewed on AddThis. TECHNIQUE: Multiplanar, multisequence MR imaging of the [...] It demonstrates loss of signal intensity on [id number] imaging with signal intensity index of 11.6%. [...] CONTRAST Date: 02/01/2025 2:01 PM INDICATION: 39F [facility] evaluation for anterior mediastinal mass premedication per primary team COMPARISON: Outside facility CT chest, abdomen, and pelvis dated103/28/2024 viewed on AddThis. TECHNIQUE: Multiplanar, multisequence MR imaging of the chest wasperformed before and after administration of IV contrast. . 14 mLgadoterate meglumine (DOTAREM) 0.5 mmol/mL (376.9 mg/mL) injection wasintravenously administered. Postprocessed subtraction images are alsoincluded. FINDINGS: Mediastinum: Pyramidal-shaped anterior mediastinal mass demonstratingisointense signal on the T1-weighted precontrast images, intermediatebright signal on the T2-weighted and T2 weighted fat saturation images. Itdemonstrates loss of signal intensity on [id number] imaging with signalintensity index of 11.6%. Post [...] consistent with thymic hyperplasia. Report initiated by: Dikc Madrigal MD Reported and signed by: Ana M Moreira MD [facility] Marie Woodson MD IMG MRI ORDERABLES Final Result * Albumin (02/01/2025 6:23 AM EST) Albumin 3.8 3.6 - 5.1 g/dL 02/01/2025 7:23 AM EST [facility] DEPARTMENT OF LABORATORY MEDICINE Blood Venipuncture / Unknown 02/01/2025 6:23 AM EST 02/01/2025 6:56 AM EST Manjinder Maguire MD LAB BLOOD ORDERABLES Final Result Performing Organization Address [facility]/State/[facility] Co de Phone Number [facility] DEPARTMENT OF LABORATORY MEDICINE [address] [place] [address] * Prealbumin (02/01/2025 6:23 AM EST) Prealbumin 23.0 20.0 - 40.0 mg/dL 02/01/2025 8:04 AM EST [facility] DEPARTMENT OF LABORATORY MEDICINE Blood Venipuncture / Unknown 02/01/2025 6:23 AM EST 02/01/2025 7:34 AM EST Manjinder Maguire MD LAB BLOOD ORDERABLES Final Result [facility] DEPARTMENT OF LABORATORY MEDICINE [address] [place] [address], [facility] [phone] * (ABNORMAL) Basic metabolic panel (02/01/2025 6:23 AM EST) Sodium 140 136 - 144 mmol/L 02/01/2025 7:23 AM DEPARTMENT OF LABORATORY MEDICINE Potassium 3.5 3.3 - 5.3 mmol/L 02/01/2025 7:23 AM DEPARTMENT OF LABORATORY MEDICINE Chloride 105 98 - 107 mmol/L 02/01/2025 7:23 AM DEPARTMENT OF LABORATORY MEDICINE CO2 24 20 - 30 mmol/L 02/01/2025 7:23 AM DEPARTMENT OF LABORATORY MEDICINE Anion Gap 11 7 - 17 02/01/2025 7:23 AM DEPARTMENT OF LABORATORY MEDICINE Glucose 114(H) 70 - 100 mg/dL 02/01/2025 7:23 AM DEPARTMENT OF LABORATORY MEDICINE BUN 7 6 - 20 mg/dL 02/01/2025 7:23 AM DEPARTMENT OF LABORATORY MEDICINE Creatinine 0.55 0.40 - 1.30 mg/dL 02/01/2025 7:23 AM DEPARTMENT OF LABORATORY MEDICINE Calcium 9.5 8.8 - 10.2 mg/dL 02/01/2025 7:23 AM DEPARTMENT OF LABORATORY MEDICINE BUN/Creatinine Ratio 12.7 8.0 - 23.0 02/01/2025 7:23 AM DEPARTMENT OF LABORATORY MEDICINE eGFR (Creatinine) >60 >=60 mL/min/1.73 m2 02/01/2025 7:23 AM DEPARTMENT OF LABORATORY MEDICINE Comment: [facility] utilizes CKD-EPI Creatinine 2020 to report eGFR. Values < 60 mL/min/1.73 m2 may indicate CKD if present for more than three months AND creatinine is at steady state. The eGFR provides a rough estimate of kidney function. For further guidance, please refer to the CKD: Adult Ad Terminal Makeup Operator Signature pathway. Creatinine Delta 0.08 See Comment 025 7:23 AM DEPARTMENT OF LABORATORY MEDICINE Comment: Delta creatinine [...] BLOOD ORDERABLES Final Result Performing Organization Address [facility]/State/[facility] de Phone Number [facility] DEPARTMENT OF LABORATORY MEDICINE [address] [place] [address] * (ABNORMAL) CBC auto differential (02/01/2025 6:23 AM EST) WBC 7.7 4.0 - 11.0 x1000/ L 02/01/2025 7:13 AM DEPARTMENT OF LABORATORY MEDICINE RBC 4.21 4.00 - 6.00 M/ L 02/01/2025 7:13 AM DEPARTMENT OF LABORATORY MEDICINE Hemoglobin 12.0 11.7 - 15.5 g/dL 02/01/2025 7:13 AM DEPARTMENT OF LABORATORY MEDICINE Hematocrit 37.00 35.00 - 45.00 % 02/01/2025 7:13 AM DEPARTMENT OF LABORATORY MEDICINE MCV 87.9 80.0 - 100.0 fL 02/01/2025 7:13 AM DEPARTMENT OF LABORATORY MEDICINE MCH 28.5 27.0 - 33.0 pg 02/01/2025 7:13 AM DEPARTMENT OF LABORATORY MEDICINE MCHC 32.4 31.0 - 36.0 g/dL 02/01/2025 7:13 AM DEPARTMENT OF LABORATORY MEDICINE RDW-CV 12.9 11.0 - 15.0 % 02/01/2025 7:13 AM DEPARTMENT OF LABORATORY MEDICINE Platelets 312 150 - 420 x1000/ L 02/01/2025 7:13 AM DEPARTMENT OF LABORATORY MEDICINE MPV 11.1 8.0 - 12.0 fL 02/01/2025 7:13 AM DEPARTMENT OF LABORATORY MEDICINE Neutrophils 37.9(L) 39.0 - 72.0 % 02/01/2025 7:13 AM DEPARTMENT OF LABORATORY MEDICINE Lymphocytes 50.6(H) 17.0 - 50.0 % 02/01/2025 7:13 AM DEPARTMENT OF LABORATORY MEDICINE Monocytes 9.0 4.0 - 12.0 % 02/01/2025 7:13 AM DEPARTMENT OF LABORATORY MEDICINE Eosinophils 2.1 0.0 - 5.0 % 02/01/2025 7:13 AM DEPARTMENT OF LABORATORY MEDICINE Basophil 0.3 0.0 - 1.4 % 02/01/2025 7:13 AM DEPARTMENT OF LABORATORY MEDICINE Immature Granulocytes 0.1 0.0 - 1.0 % 02/01/2025 7:13 AM DEPARTMENT OF LABORATORY MEDICINE nRBC 0.0 0.0 - 1.0 % 02/01/2025 7:13 AM DEPARTMENT OF LABORATORY MEDICINE Absolute Lymphocyte Count 3.89(H) 0.60 - 3.70 x 1000/ L 02/01/2025 7:13 AM DEPARTMENT OF LABORATORY MEDICINE Monocyte Absolute Count 0.69 0.00 - 1.00 x 1000/ L 02/01/2025 7:13 AM DEPARTMENT OF LABORATORY MEDICINE Eosinophil Absolute Count 0.16 0.00 - 1.00 x 1000/ L 02/01/2025 7:13 AM DEPARTMENT OF LABORATORY MEDICINE Basophil Absolute Count 0.02 0.00 - 1.00 x 1000/ L 02/01/2025 7:13 AM DEPARTMENT OF LABORATORY MEDICINE Absolute Immature Granulocyte Count 0.01 0.00 - 0.30 x 1000/ L 02/01/2025 7:13 AM DEPARTMENT OF LABORATORY MEDICINE Absolute nRBC 0.00 0.00 - 1.00 x 1000/ L 02/01/2025 7:13 AM EST [facility] DEPARTMENT OF LABORATORY MEDICINE ANC (Abs Neutrophil Count) 2.92 2.00 - 7.60 x 1000/ L 02/01/2025 7:13 AM EST [facility] DEPARTMENT OF LABORATORY MEDICINE Blood Venipuncture / Unknown 02/01/2025 6:23 AM EST 02/01/2025 6:56 AM EST us Manjinder Maguire MD LAB BLOOD ORDERABLES Final Result [facility] DEPARTMENT OF LABORATORY MEDICINE [address] [place] [id number], [facility] [phone] * US Renal (02/01/2025 2:17 AM EST) [...] above. The bilateral ureteral jets are visualized. [facility] Radiology Notify System Classification: Routine. Report initiated by: Tariq Zee MD Reported and signed by: Jr Cosby MD [facility] Narrative 02/01/2025 5:09 [...] chest abdomen pelvis dated 01/26/2025 performed at [facility], images available on [email or web address]. TECHNIQUE: Grayscale and color Doppler imaging were performed. FINDINGS: RIGHT KIDNEY: Size: 13.9 in maximal sagittal dimension. 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 Thereis evidence of scarring and partial rotational anomaly of the lower polemoiety. Two renal calculi are seen within the lower pole moiety and 8 mm, which are seen on [...] described above. The bilateral ureteral jets arevisualized. [facility] Radiology Notify System Classification: Routine. Report initiated by: Tariq Zee MD Reported and signed by: Jr Cosby MD [facility] us Marie Woodson MD IMG US ORDERABLES Final Result * POCT urine (02/01/2025 1:02 AM EST) Preg Test, Ur, POC Negative Negative [facility] Line in Control Window? (+ Control) Yes [facility] Background Clear? (- Control) Yes [facility] Kit Lot Number [id number] [facility] Expiration Date 04/29/2026 [facility] Urine URINE SPECIMEN / Unknown 02/01/2025 1:02 AM EST us Marie Woodson MD POINT OF CARE TEST ORDERABLES F inal Result [facility] [place], [place], [facility] * (ABNORMAL) Urine microscopic (BH GH LMW YH) (02/01/2025 12:09 AM EST) RBC/HPF, UA 41(H) 0 - 2 /HPF 02/01/2025 12:33 AM EST [facility] DEPARTMENT OF LABORATORY MEDICINE WBC/HPF, UA 35(H) 0 - 5 /HPF 02/01/2025 12:33 AM EST [facility] DEPARTMENT OF LABORATORY MEDICINE Bacteria, UA Rare None-Rare /HPF 02/01/2025 12:33 AM EST [facility] DEPARTMENT OF LABORATORY MEDICINE Urine Squamous Epithelial Cells, UA 3 0 - 5 /HPF 02/01/2025 12:33 AM EST [facility] DEPARTMENT OF LABORATORY MEDICINE Hyaline Casts, UA 1 0 - 3 /LPF 02/01/2025 12:33 AM EST [facility] DEPARTMENT OF LABORATORY MEDICINE Ca Oxalate Maria T, UA Moderate(A ) None /HPF 02/01/2025 12:33 AM DEPARTMENT OF LABORATORY MEDICINE Urine Collection / Unknown 02/01/2025 12:09 AM EST 02/01/2025 12:24 AM EST us Marie Woodson MD URINE ORDERABLES Final Result Performing Organization Address City/State/[facility] Co de Phone Number [facility] OF LABORATORY MEDICINE [address] [place] [address] * (ABNORMAL) Urine macroscopic (02/01/2025 12:09 AM EST) Clarity, UA Cloudy(A) Clear 02/01/2025 12:28 AM DEPARTMENT OF LABORATORY MEDICINE Color, UA Yellow Yellow, Colorless 02/01/2025 12:28 AM DEPARTMENT OF LABORATORY MEDICINE Specific [place], UA 1.023 1.005 - 1.030 02/01/2025 12:28 AM DEPARTMENT OF LABORATORY MEDICINE pH, UA 5.5 5.5 - 7.5 02/01/2025 12:28 AM DEPARTMENT OF LABORATORY MEDICINE Protein, UA 1+(A) Negative, Trace 02/01/2025 12:28 AM DEPARTMENT OF LABORATORY MEDICINE Glucose, UA Negative Negative 02/01/2025 12:28 AM DEPARTMENT OF LABORATORY MEDICINE Ketones, UA Negative Negative 02/01/2025 12:28 AM DEPARTMENT OF LABORATORY MEDICINE Blood, UA 1+(A) Negative 02/01/2025 12:28 AM DEPARTMENT OF LABORATORY MEDICINE Bilirubin, UA Negative Negative 02/01/2025 12:28 AM DEPARTMENT OF LABORATORY MEDICINE Leukocytes, UA 2+(A) Negative 02/01/2025 12:28 AM DEPARTMENT OF LABORATORY MEDICINE Nitrite, UA Negative Negative 02/01/2025 12:28 AM DEPARTMENT OF LABORATORY MEDICINE Urobilinogen, UA <2.0 <=2.0 mg/dL 02/01/2025 12:28 AM DEPARTMENT OF LABORATORY MEDICINE Urine Collection / Unknown 02/01/2025 12:09 AM EST 02/01/2025 12:24 AM EST us Marie Woodson MD URINE ORDERABLES Final Result Performing Organization Address [facility] de Phone Number [facility] DEPARTMENT OF LABORATORY MEDICINE [address] [place] [address] * (ABNORMAL) T4, free (01/31/2025 11:19 PM EST) Free T4 5.01(H) See Comment ng/dL 02/01/2025 1:26 AM EST [facility] DEPARTMENT OF LABORATORY MEDICINE Comment: For patients [...] ORDERABLES Final Resu lt Performing Organization Address [facility] de Phone Number [facility] DEPARTMENT OF LABORATORY MEDICINE [address] [place] [address] * (ABNORMAL) T3 (01/31/2025 11:19 PM EST) T3, Total 309.0(H) See Comment ng/dL 02/01/2025 12:54 AM EST [facility] DEPARTMENT OF LABORATORY MEDICINE Comment: Male & Non- Females: 72.0-153.0 ng/dL 1st Trimester: 92.0-224.0 ng/dL 2nd Trimester: 99.0-242.0 ng/dL Blood Venipuncture / Unknown 01/31/2025 11:19 PM EST 01/31/2025 11:59 PM EST us Marie Woodson MD LAB BLOOD ORDERABLES Final Resu lt [facility] DEPARTMENT OF LABORATORY MEDICINE [address] [place] [address], [facility] [phone] * (ABNORMAL) Hepatic function panel (01/31/2025 11:19 PM EST) Total Bilirubin 0.3 <=1.2 mg/dL 02/02/20 12:55 AM DEPARTMENT OF LABORATORY MEDICINE Bilirubin, Direct 0.1 <=0.2 mg/dL 2024 12:55 AM DEPARTMENT OF LABORATORY MEDICINE Comment: Effective 11/26/2024 [facility] changed the Direct Bilirubin testing method from the Martha method to the Randox method. Alkaline Phosphatase 85 9 - 122 U/L 02/01/2025 12:55 AM DEPARTMENT OF LABORATORY MEDICINE Alanine Aminotransferase (ALT) 21 10 - 35 U/L 02/01/2025 12:55 AM DEPARTMENT OF LABORATORY MEDICINE Comment:Calcium dobesilate c an cause artificially low ALT results at therapeutic concentrations Aspartate Aminotransferase (AST) 37(H) 10 - 35 U/L 02/01/2025 12:55 AM DEPARTMENT OF LABORATORY MEDICINE Comment:Sample slightly hemo lyzed. Results may be falsely elevated due to hemolysis. AST/ALT Ratio 1.8 Reference Range Not Established 02/01/2025 12:55 AM DEPARTMENT OF LABORATORY MEDICINE Total Protein 7.4 5.9 - 8.3 g/dL 025 12:55 AM DEPARTMENT OF LABORATORY MEDICINE Albumin 4.3 3.6 - 5.1 g/dL 02/01/2025 12:55 AM DEPARTMENT OF LABORATORY MEDICINE Globulin 3.1 2.0 - 3.9 g/dL 02/01/2025 12:55 AM DEPARTMENT OF LABORATORY MEDICINE A/G Ratio 1.4 1.0 - 2.2 02/01/2025 12:55 AM EST [facility] DEPARTMENT OF LABORATORY MEDICINE Blood Venipuncture / Unknown 01/31/2025 11:19 PM EST 01/31/2025 11:59 PM EST us Marie Woodson MD LAB BLOOD ORDERABLES Final Resu lt Performing Organization Address [facility] de Phone Number [facility] DEPARTMENT OF LABORATORY MEDICINE [address] [place] [address] * hCG, quantitative (01/31/2025 11:19 PM EST) hCG, Quantitative <1 See Comment mIU/mL 02/01/2025 12:54 AM EST [facility] DEPARTMENT OF LABORATORY MEDICINE Comment: Males and non females: <5 mIU/mL females: 1st week of gestation: 5-50 mIU/mL Levels double every 1.5-2 days in early first trimester Peak: 300,000 mIU/mL in late first trimester Effective 12/25/2018 the Clinical Chemistry lab at [facility] has switched to a new Total hCG assay with improved detection for various hCG forms to aid in detection of various disease conditions like ectopic , choriocarcinoma, testicular cancer, trophoblastic diseases, and nontrophoblastic tumors. Blood Venipuncture / Unknown 01/31/2025 11:19 PM EST 01/31/2025 11:59 PM EST us Marie Woodson MD LAB BLOOD ORDERABLES Final Resu lt Performing Organization Address [facility] Co de Phone Number [facility] DEPARTMENT OF LABORATORY MEDICINE [address] [place] [address] * (ABNORMAL) Basic metabolic panel (01/31/2025 11:19 PM EST) Sodium 140 136 - 144 mmol/L 02/01/2025 12:55 AM EST [facility] DEPARTMENT OF LABORATORY MEDICINE Potassium 4.0 3.3 - 5.3 mmol/L 02/01/2025 12:55 AM EST [facility] DEPARTMENT OF LABORATORY MEDICINE Comment:Sample slightly hemo lyzed. Results may be falsely elevated due to hemolysis. Chloride 103 98 - 107 mmol/L 02/01/2025 12:55 AM DEPARTMENT OF LABORATORY MEDICINE CO2 21 20 - 30 mmol/L 02/01/2025 12:55 AM DEPARTMENT OF LABORATORY MEDICINE Anion Gap 16 7 - 17 02/01/2025 12:55 AM DEPARTMENT OF LABORATORY MEDICINE Glucose 109(H) 70 - 100 mg/dL 02/01/2025 12:55 AM DEPARTMENT OF LABORATORY MEDICINE BUN 11 6 - 20 mg/dL 02/01/2025 12:55 AM DEPARTMENT OF LABORATORY MEDICINE Creatinine 0.47 0.40 - 1.30 mg/dL 02/01/2025 12:55 AM DEPARTMENT OF LABORATORY MEDICINE Calcium 9.8 8.8 - 10.2 mg/dL 02/01/2025 12:55 AM DEPARTMENT OF LABORATORY MEDICINE BUN/Creatinine Ratio 23.4(H) 8.0 - 23.0 02/01/2025 12:55 AM DEPARTMENT OF LABORATORY MEDICINE eGFR (Creatinine) >60 >=60 mL/min/1.7 3m2 02/01/2025 12:55 AM DEPARTMENT OF LABORATORY MEDICINE Comment: [facility] utilizes CKD-EPI Creatinine 2020 to report eGFR. Values < 60 mL/min/1.73 m2 may indicate CKD if present for more than three months AND creatinine is at steady state. The eGFR provides a rough estimate of kidney function. For further guidance, please refer to the CKD: Adult Ad Terminal Makeup Operator Signature pathway. Creatinine Delta 02/01/2025 12:55 AM DEPARTMENT OF LABORATORY MEDICINE Comment:No previous creatini ne <5.00 mg/dL is available within the previous 12 months to calculate a delta creatinine. Blood Venipuncture / Unknown 01/31/2025 11:19 PM EST 01/31/2025 11:59 PM EST us Marie Woodson MD LAB BLOOD ORDERABLES Final Resu lt [facility] DEPARTMENT OF LABORATORY MEDICINE [address] [place] [address], [facility] [phone] * (ABNORMAL) CBC auto differential (01/31/2025 11:19 PM RUST) Pathologist [facility] WBC 8.3 4.0 - 11.0 x1000/ L 02/01/2025 12:07 AM DEPARTMENT OF LABORATORY MEDICINE RBC 4.47 4.00 - 6.00 M/ L 02/01/2025 12:07 AM DEPARTMENT OF LABORATORY MEDICINE Hemoglobin 13.5 11.7 - 15.5 g/dL 02/01/2025 12:07 AM DEPARTMENT OF LABORATORY MEDICINE Hematocrit 38.60 35.00 - 45.00 % 02/01/2025 12:07 AM DEPARTMENT OF LABORATORY MEDICINE MCV 86.4 80.0 - 100.0 fL 02/01/2025 12:07 AM DEPARTMENT OF LABORATORY MEDICINE MCH 30.2 27.0 - 33.0 pg 02/01/2025 12:07 AM DEPARTMENT OF LABORATORY MEDICINE MCHC 35.0 31.0 - 36.0 g/dL 02/01/2025 12:07 AM DEPARTMENT OF LABORATORY MEDICINE RDW-CV 12.7 11.0 - 15.0 % 02/01/2025 12:07 AM DEPARTMENT OF LABORATORY MEDICINE Platelets 366 150 - 420 x1000/ L 02/01/2025 12:07 AM DEPARTMENT OF LABORATORY MEDICINE MPV 11.9 8.0 - 12.0 fL 02/01/2025 12:07 AM DEPARTMENT OF LABORATORY MEDICINE Neutrophils 44.4 39.0 - 72.0 % 02/01/2025 12:07 AM DEPARTMENT OF LABORATORY MEDICINE Lymphocytes 47.5 17.0 - 50.0 % 02/01/2025 12:07 AM DEPARTMENT OF LABORATORY MEDICINE Monocytes 6.4 4.0 - 12.0 % 02/01/2025 12:07 AM DEPARTMENT OF LABORATORY MEDICINE Eosinophils 1.4 0.0 - 5.0 % 02/01/2025 12:07 AM DEPARTMENT OF LABORATORY MEDICINE Basophil 0.1 0.0 - 1.4 % 02/01/2025 12:07 AM DEPARTMENT OF LABORATORY MEDICINE Immature Granulocytes 0.2 0.0 - 1.0 % 02/01/2025 12:07 AM DEPARTMENT OF LABORATORY MEDICINE nRBC 0.0 0.0 - 1.0 % 02/01/2025 12:07 AM DEPARTMENT OF LABORATORY MEDICINE Absolute Lymphocyte Count 3.95(H) 0.60 - 3.70 x 1000/ L 02/01/2025 12:07 AM DEPARTMENT OF LABORATORY MEDICINE Monocyte Absolute Count 0.53 0.00 - 1.00 x 1000/ L 02/01/2025 12:07 AM DEPARTMENT OF LABORATORY MEDICINE Eosinophil Absolute Count 0.12 0.00 - 1.00 x 1000/ L 02/01/2025 12:07 AM DEPARTMENT OF LABORATORY MEDICINE Basophil Absolute Count 0.01 0.00 - 1.00 x 1000/ L 02/01/2025 12:07 AM DEPARTMENT OF LABORATORY MEDICINE Absolute Immature Granulocyte Count 0.02 0.00 - 0.30 x 1000/ L 02/01/2025 12:07 AM DEPARTMENT OF LABORATORY MEDICINE Absolute nRBC 0.00 0.00 - 1.00 x 1000/ L 02/01/2025 12:07 AM DEPARTMENT OF LABORATORY MEDICINE ANC (Abs Neutrophil Count) 3.68 2.00 - 7.60 x 1000/ L 02/01/2025 12:07 AM DEPARTMENT OF LABORATORY MEDICINE Blood Venipuncture / Unknown 01/31/2025 11:19 PM EST 02/01/2025 12:00 AM EST us Marie Woodson MD LAB BLOOD ORDERABLES Final Resu lt [facility] DEPARTMENT OF LABORATORY MEDICINE [address] [place] [address] * (ABNORMAL) TSH w/reflex to FT4 (01/31/2025 11:19 PM EST) Thyroid Stimulating Hormone <0.005(L) See Comment IU/mL 02/01/2025 12:55 AM DEPARTMENT OF LABORATORY MEDICINE Comment: Male & Non- Females: 0.270-4.200 IU/mL 1st Trimester: 0.110-3.480 IU/mL 2nd Trimester: 0.320-3.850 IU/mL Blood Venipuncture / Unknown 01/31/2025 11:19 PM EST 01/31/2025 11:59 PM EST us Marie Woodson MD LAB BLOOD ORDERABLES Final Resu lt Performing Organization Address City/[facility]/ZIP Co de Phone Number [facility] DEPARTMENT OF LABORATORY MEDICINE [address] [place] [address] * Phosphorus (01/31/2025 11:19 PM EST) Phosphorus 4.1 2.2 - 4.5 mg/dL 02/01/2025 12:54 AM EST [facility] DEPARTMENT OF LABORATORY MEDICINE Blood Venipuncture / Unknown 01/31/2025 11:19 PM EST 01/31/2025 11:59 PM EST us Marie Woodson MD LAB BLOOD ORDERABLES Final Resu lt Performing Organization Address [facility] de Phone Number [facility] DEPARTMENT OF LABORATORY MEDICINE [address] [place] [address] * Magnesium (01/31/2025 11:19 PM EST) Magnesium 1.7 1.7 - 2.4 mg/dL 02/01/2025 12:54 AM EST [facility] DEPARTMENT OF LABORATORY MEDICINE Blood Venipuncture / Unknown 01/31/2025 11:19 PM EST 01/31/2025 11:59 PM EST us Marie Woodson MD LAB BLOOD ORDERABLES Final Resu lt Performing Organization Address City/[facility] de Phone Number [facility] DEPARTMENT OF LABORATORY MEDICINE [address] [place] [address] * EKG (01/31/2025 8:19 PM EST) Heart Rate 105 bpm [facility] EKG QRS Interval 77 ms [facility] EKG QT Interval 331 ms [facility] EKG QTC Interval 439 ms [facility] EKG P [place] 29 deg [facility] EKG QRS [place] 37 deg [facility] EKG T Wave [place] 57 deg [facility] EKG P-R Interval 129 msec [facility] EKG SEVERITY Borderline ECG severity [facility] EKG Comment::Sinus tachycardia:C onsider left ventricular hypertrophy:Electronically Signed On 02-01-2025 2:27:04 EST by Marie Woodson MD OTHER / Unknown 01/31/2025 8 :19 PM EST us Miguel Christianson MD ECG ORDERABLES Final Result [facility] EKG documented in this encounter Visit Diagnoses [...] Scheduled, First dose (after last modification) on 02/08/25 at 1200, Maximum dose of acetaminophen is [...] pain score per patient preference, Starting on 02/01/25 at 0613, Maximum dose of acetaminophen is [...] 3 TIMES DAILY PRN, anxiety, Starting on 02/01/25 at 0531, Common Side Effects: Confusion, dizziness, [...] Oral, EVERY 12 HOURS, First dose on 02/01/25 at 0615, Common Side Effects: Stomach upset, tendon pain or swelling., Reason for Use (RFU): Urinary tract infection (empiric or culture-documented), Pharmacist will implement [facility] Renal Dose Adjustment Protocol unless otherwise specified: [...] 24 Hours Scheduled (Daily), First dose on 02/01/25 at 0900, This medication may be automatically [...] requiring more than 10mg of parenteral morphine NAIL WELTER per hour for at least 2 hours [...] requiring more than 10mg of parenteral morphine NAIL WELTER per hour for at least 2 hours [...] patient's renal function as approved by the [facility] Formulary Integration Committee (FIC)., Pharmacist will implement [facility] Renal Dose Adjustment Protocol unless otherwise specified: [...] patient's renal function as approved by the [facility] Formulary Integration Committee (FIC)., Pharmacist will implement [facility] Renal Dose Adjustment Protocol unless otherwise specified: [...] patient's renal function as approved by the [facility] Formulary Integration Committee (FIC)., Pharmacist will implement [facility] Renal Dose Adjustment Protocol unless otherwise specified: [...] patient's renal function as approved by the [facility] Formulary Integration Committee (FIC)., Pharmacist will implement [facility] Renal Dose Adjustment Protocol unless otherwise specified: [...] patient's renal function as approved by the [facility] Formulary Integration Committee (FIC)., Pharmacist will implement [facility] Renal Dose Adjustment Protocol unless otherwise specified: [...] patient's renal function as approved by the [facility] Formulary Integration Committee (FIC)., Pharmacist will implement [facility] Renal Dose Adjustment Protocol unless otherwise specified: [...] otherwise specified: Implement Protocol, Pharmacist will implement [facility] Renal Dose Adjustment Protocol unless otherwise specified: [...] otherwise specified: Implement Protocol, Pharmacist will implement [facility] Renal Dose Adjustment Protocol unless otherwise specified: Implement Protocol Given 02/02/2025 6:45 PM EST 5 mg metoclopramide HCl (REGLAN) tablet 10 mg 10 mg, Oral, EVERY 6 HOURS PRN, nausea or vomiting, Starting on Sat02/02/25 at 1821, First line therapy. , Pharmacist will implement [facility] Renal Dose Adjustment Protocol unless otherwise specified: [...] Scheduled, First dose (after last modification) on Sat02/06/25 at 2100, Common Side Effects: Diarrhea, discomfort, cramps. Given 02/07/2025 8:18 PM EST 34 g Given 02/06/2025 8:22 PM EST 34 g propranoloL (INDERAL) Immediate Release tablet 20 mg 20 mg, Oral, EVERY 8 HOURS, First dose (after last modification) on Sat02/06/25 at 2030, Hold for SBP < 90 mm Hg or HR < 50 BPM Common Side Effects: Fatigue, dizziness, hypotension, bradycardia. Given 02/08/2025 2:21 PM EST 20 mg Given 02/08/2025 8:42 AM EST 20 mg Given 02/07/2025 11:12 PM EST 20 mg propranoloL (INDERAL) immediate release tablet 40 mg 40 mg, Oral, EVERY 8 HOURS, First dose on Sat01/31/25 at 2330, Hold for SBP < 90 [...] 24 hours. 1152 (Given - Provider: Shellie Marie RN)1800 (Due) acetaminophen (TYLENOL) tablet 975 mg (CANCELED) [...] 1) 15 mg, IV Push, ONCE, On Sat02/06/25 [...] patient's renal function as approved by the [facility] Formulary Integration Committee (FIC)., Pharmacist will implement [facility] Renal Dose Adjustment Protocol unless otherwise specified: [...] patient's renal function as approved by the [facility] Formulary Integration Committee (FIC)., Pharmacist will implement [facility] Renal Dose Adjustment Protocol unless otherwise specified: [...] patient's renal function as approved by the [facility] Formulary Integration Committee (FIC)., Pharmacist will implement [facility] Renal Dose Adjustment Protocol unless otherwise specified: [...] patient's renal function as approved by the [facility] Formulary Integration Committee (FIC)., Pharmacist will implement [facility] Renal Dose Adjustment Protocol unless otherwise specified: [...] patient's renal function as approved by the [facility] Formulary Integration Committee (FIC)., Pharmacist will implement [facility] Renal Dose Adjustment Protocol unless otherwise specified: Implement Protocol 1440 (Given - Provider: Arely Dimas, RN)2017 (Given - Provider: Carolyn Fajardo, YOLANDA) 0153 (Given - Provider: Carolyn Fajardo, YOLANDA)0845 (Given - Provider: Shellie Marie, RN) lidocaine uro-jet (XYLOCAINE) 2 % jelly 11 mL 11 mL, Other, 3 TIMES DAILY, First dose (after last modification) on Sat02/06/25 at 1400, Inna urethrally 1500 (Given - Provider: Arely Dimas, YOLANDA)2028 (Given - Provider: Carolyn Fajardo RN - Comment: self administered) 1116 (Given - Provider: Arely Dimas, YOLANDA)182 (Given - Provider: Arely Dimas RN)2023 (Given - Provider: Carolyn Fajardo RN) 0846 (Refused - Provider: Shellie Marie, RN)1400 (Refused - Provider: Shellie Marie, [...] at 2100 1000 (Given - Provider: Arely Dimas, YOLANDA)2021 (Given - Provider: Carolyn Fajardo, YOLANDA) 111 (Given - Provider: Arely Dimas, RN)2017 (Given - Provider: Carolyn Fajardo, YOLANDA) 0843 (Given - Provider: Shellie Marie, RN) multivitamin with folic acid (THERAGRAN) tablet 1 tablet 1 tablet, Oral, Daily, First dose on Sat02/01/25 at 0900 1000 (Given - Provider: Arely Dimas, YOLANDA) 111 (Given - Provider: Arely Dimas, YOLANDA) 0843 (Given - Provider: Shellie Marie, RN) oxybutynin (DITROPAN) immediate release tablet 5 mg [...] RN) 0843 (Given - Provider: Shellie Marie, RN)1421 (Given - Provider: Shellie Marie, RN) polyethylene glycol (MIRALAX) packet 17 g (CANCELED) 17 g, Oral, 2 Times Daily Scheduled, First dose (after last modification) on Sat02/05/25 at 2100, Common Side Effects: Diarrhea, discomfort, cramps. 1000 (Given - Provider: Arely Dimas RN) polyethylene glycol (MIRALAX) packet 34 g 34 g, Oral, 2 Times Daily Scheduled, First dose (after last modification) on Sat02/06/25 at 2100, Common Side Effects: Diarrhea, discomfort, cramps. 2021 (Given - Provider: Carolyn Fajardo RN) 112 (Refused - Provider: Arely Dimas RN)2018 (Given - Provider: Carolyn Fajardo RN) 0844 (Refused - Provider: Shellie Marie, YOLANDA) propranoloL (INDERAL) Immediate Release tablet 20 mg 20 mg, Oral, EVERY 8 HOURS, First dose (after last modification) on Sat02/06/25 at 2030, Hold for SBP < 90 mm Hg or HR < 50 BPM Common Side Effects: Fatigue, dizziness, hypotension, bradycardia. 2021 (Given - Provider: Carolyn Fajardo RN) 0354 (Given - Provider: Carolyn Fajardo, YOLANDA)1440 (Given - Provider: Arely Dimas RN)2312 (Given [...] Dimas RN) 0844 (Refused - Provider: Shellie Marie RN) tamsulosin (FLOMAX) 24 hr capsule 0.4 [...] Fajardo RN) 2023 (Given - Provider: Carolyn Fajardo, YOLANDA) traZODone (DESYREL) tablet 25 mg 25 mg, Oral, Nightly, First dose on 02/06/25 at 2100, Common Side Effects: Sedation, headache, dizziness, nausea. 2021 (Given - Provider: Carolyn Fajardo, YOLANDA) 2017 (Given - Provider: Carolyn Fajardo RN) [...] mood changes. 0354 (Given - Provider: Carolyn Faajrdo RN)1603 (Given - Provider: Arely Dimas, YOLANDA) [...] requiring more than 10mg of parenteral morphine NAIL WELTER per hour for at least 2 hours 0424 (Given - Provider: Carolyn Fajardo RN)0950 (Given - Provider: Arely Dimas, RN)1821 (Given - Provider: Arely Dimas RN) 0605 (Given - Provider: Carolyn Fajardo, YOLANDA) [...] otherwise specified: Implement Protocol, Pharmacist will implement [facility] Renal Dose Adjustment Protocol unless otherwise specified: Implement Protocol 0557 (Given - Provider: Carolyn Fajardo RN)2017 (Given - Provider: Carolyn Fajardo RN) 041 (Given - Provider: Carolyn Fajardo RN) metoclopramide HCl (REGLAN) tablet 10 mg(Linked Group 3) 10 mg, Oral, EVERY 6 HOURS PRN, nausea or vomiting, Starting on Sat02/02/25 at 1821, First line therapy. , Pharmacist will implement [facility] Renal Dose Adjustment Protocol unless otherwise specified: Implement Protocol 0557 (See Alternative - Provider: Carolyn Fajardo RN)2018 (See Alternative - Provider: Carolyn Fajardo RN) [...] Carolyn Fajardo RN)0938 (Given - Provider: Arely Dimas, YOLANDA)2305 (Given - Provider: Carolyn Fajardo RN) oxyCODONE (ROXICODONE) Immediate Release tablet 10 mg(Linked Group 4) 10 mg, Oral, EVERY 4 HOURS PRN, severe Pain (PIS 7-10), Starting on Sat02/02/25 at 1543, For 7 days, Common Side Effects: Confusion, nausea, vomiting, drowsiness, constipation, breathing problems. 0043 (Given - Provider: Nat Yao RN)0413 (Given - Provider: Nat Yao [...] med 30 mg, IV Push, ONCE, On Sat02/06/25 at [...] patient's renal function as approved by the [facility] Formulary Integration Committee (FIC)., Pharmacist will implement [facility] Renal Dose Adjustment Protocol unless otherwise specified: [...] patient's renal function as approved by the [facility] Formulary Integration Committee (FIC)., Pharmacist will implement [facility] Renal Dose Adjustment Protocol unless otherwise specified: [...] patient's renal function as approved by the [facility] Formulary Integration Committee (FIC)., Pharmacist will implement [facility] Renal Dose Adjustment Protocol unless otherwise specified: [...] patient's renal function as approved by the [facility] Formulary Integration Committee (FIC)., Pharmacist will implement [facility] Renal Dose Adjustment Protocol unless otherwise specified: Implement Protocol Group 3: metoclopramide HCl (REGLAN) tablet 10 mgJump to med 10 mg, Oral, EVERY 6 HOURS PRN, nausea or vomiting, Starting on Sat02/02/25 at 1821, First line therapy. , Pharmacist will implement [facility] Renal Dose Adjustment Protocol unless otherwise specified: Implement Protocol Or metoclopramide (REGLAN) injection 10 mgJump to med 10 mg, IV Push, EVERY 6 HOURS PRN, nausea or vomiting, Starting on Sat02/02/25 at 1821, First line therapy. If patient cannot tolerate PO., Pharmacist will implement Pharmacist IV to Enteral Conversion Protocol unless otherwise specified: Implement Protocol, Pharmacist will implement [facility] Renal Dose Adjustment Protocol unless otherwise specified: [...] problems. documented in this encounter Care Teams Swatch Paster Relationship Specialty Start Date End Date [address] [address] PCP - General 01/31/25 documented as of this encounter
--- OUTSIDE RECORDS SUMMARY | 2025-02-11 09:00 | XMS_ITS | Encounter Summary ---
Author Organization [facility] and [facility] Address [address] [place] [address] Care Team Providers Care Watchguard Name Role Phone [facility] Primary Care Provider [phone] [phone] Reason for Referral * Consultation (Routine) - New Request Specialty Diagnoses / Procedures Referred By Nancy allison Referred To Contact Ophthalmology Diagnoses Graves' disease Katina Vasquez MD [address] [place] [phone] Phone: tel: fax: Ophthalmology at [address] [place], [place] [id number] Phone: tel: fax: Referral ID Status Reason Start Date Expiration Date Visits Requested Visits Authorized [id number] New Request Specialty Services Required 02/11/2025 02/11/2026 1 1 Reason for Visit * Office Visit with Treatment (Routine) - Authorized Specialty Diagnoses / Procedures Referred By Nancy allison Referred To Contact Internal Medicine / Oncology Procedures NEW PATIENT ND Katina Vasquez MD [address] [place] [phone] Phone: tel: fax: Katina Vasquez MD [address] [place] [phone] Phone: tel: fax: Referral ID Status Reason Start Date Expiration Date V isits Requested Visits Authorized [id number] Authorized 02/09/2025 02/09/2026 10 10 Encounter Details Date Type Department Care Team (Late st Contact Info) Description 02/11/2025 9:00 AM EST Office Visit [facility] Endocrine Neoplasia 35 [facility] [address] [place] [address] Katina Vasquez MD 35 [facility] 4 [place] [address] Graves' disease (Primary Dx) Social History Tobacco Use Types [...] things needed for daily living? No 02/02/2025 [facility] Utilities Answer Date Recorded In the past 12 months has [facility], gas, oil, or water [employer] threatened to shut off services in your home? No 02/02/2025 Housing Stability Answer Date Recorded What is your living situation today? I have a the rehabilitation institutedy place to live 02/02/2025 Housing Stability Not on file 02/02/2025 Interpersonal Safety Answer Date Record ed Is there anyone in your life that is hurting or threatening you in anyway? no 02/02/2025 Physical Indicators of Abuse No evidence of phys ical abuse 02/02/2025 Comments No Sex and Gender Information Value [...] Sign Reading Time Taken Comments Blood Pressure 98/62 02/11/2025 9:05 AM EST Pulse 83 02/11/2025 9:05 AM EST Temperature 36.4 C (97.6 F) 02/11/2025 9:05 AM EST Respiratory Rate 20 02/11/2025 9:05 AM EST Oxygen Saturation 100% 02/11/2025 9:05 AM EST Inhaled Oxygen Concentration - - Weight 73.6 kg (162 lb 4.1 oz) 02/11/2025 9:05 A M EST Height - - Body Mass Index 26.19 02/02/2025 4:00 PM EST documented in this encounter Plan of Treatment Upcoming Encounters Date Type Department Care Team (Late st Contact Info) Description 02/22/2025 9:00 AM EST Office Visit [facility] Urology at [address] [place] [address] [address] [facility] [address] [place], [place] [address] Anand Robbins MD [address] [place] [address] 06/02/2025 1:45 PM EDT Office Visit [facility]ocrine [facility] [address] [place], [place] [address] [place] [address] Katina Vasquez MD 35 [facility] 4 [place] [address] Scheduled Referrals Name Type Priority Associated Diagnoses Order Schedule Ambulatory referral to Ophthalmology Outpatient Referral Routine Graves' disease Ordered: 02/11/2025 documented as of this encounter Results * Vitamin D, 25-hydroxy (02/11/2025 10:21 AM EST) Vitamin D 25-Hydroxy Total 27 See Comment ng/mL 02/11/2025 11:18 AM EST [facility] DEPARTMENT OF LABORATORY MEDICINE Comment: Reference Ranges: <10 ng/mL - Severe deficiency 10-19 ng/mL - Mild to moderate deficiency 20-50 ng/mL - Optimum Levels 51-80 ng/mL - Increased risk of hypercalciuria >80 ng/mL - Toxicity possible Blood Venipuncture / Unknown 02/11/2025 10:21 AM EST 02/11/2025 10:34 AM EST us Katina Vasquez MD LAB BLOOD ORDERABLES Final Res ult [facility] DEPARTMENT OF LABORATORY MEDICINE [address] [place] [address] documented in this encounter Visit Diagnoses Diagnosis Graves' disease- Primary Toxic diffuse goiter without mention of thyrotoxic crisis or storm documented in this encounter Care Teams Watchguard Relationship Specialty Start Date End Date [address] [address] PCP - General 01/31/25 documented as of this encounter
--- OUTSIDE RECORDS SUMMARY | 2025-02-11 10:07 | XMS_ITS | Encounter Summary ---
Author Organization [facility] and [facility] Address [address] [place] [address] Care Team Providers Care Health Plan Advisor Name Role Phone [facility] Primary Care Provider [phone] Encounter Details Date Type Department Care Team (Latest Contact Info) Description 02/11/2025 10:07 AM EST - 02/11/2025 11:59 PM EST Hospital Encounter [address] [address] Katina Vasquez MD [address] [place] [phone] Graves disease; Graves' disease Discharge Disposition: Home or Self Care Social [...] things needed for daily living? No 02/02/2025 [facility] Utilities Answer Date Recorded In the [...] on file documented as of this encounter Medications at Time of Discharge [...] prior to taking. 10 packet 02/08/2025 02/13/2025 documented as of this encounter Plan of Treatment Upcoming Encounters Date Type Department Care Team (Late st Contact Info) Description 02/22/2025 9:00 AM EST Office Visit [facility] at [address] [place] [address] 330 [facility] [address] [place] [address] Anand Robbins MD [facility] [place] [address] 06/02/2025 1:45 PM EDT Office Visit [facility] Lopez Endocrine Neoplasia 35 [facility] [address] [place] [address] Katina Vasquez MD 35 [facility] 4 [place] [address] documented as of this encounter Procedures Procedure Name Priority Date/Time Associated Diagnosis Comments COMPREHENSIVE METABOLIC PANEL Routine 02/11/2025 10:21 AM EST Graves' disease VITAMIN D, 25-HYDROXY Routine 02/11/2025 10:21 AM EST Graves' disease CBC WITH AUTO DIFFERENTIAL Routine 02/11/2025 10:21 AM EST Graves' disease CBC AND DIFFERENTIAL Routine 02/11/2025 10:21 AM EST Graves' disease T3 Routine 02/11/2025 10:21 AM EST Graves disease TSH Routine 02/11/2025 10:21 AM EST Graves' disease T4, FREE Routine 02/11/2025 10:21 AM EST Graves disease BILIRUBIN, DIRECT Routine 02/11/2025 10: 21 AM EST Graves disease COMPREHENSIVE METABOLIC PANEL Routine 02/11/2025 10:21 AM EST Graves' disease documented in this encounter Results * (ABNORMAL) TSH (02/11/2025 10:21 AM EST) Thyroid Stimulating Hormone <0.005(L) See Comment IU/mL 02/11/2025 11:18 AM EST [facility] DEPARTMENT OF LABORATORY MEDICINE Comment: Male & Non- Females: 0.270-4.200 IU/mL 1st Trimester: 0.110-3.480 IU/mL 2nd Trimester: 0.320-3.850 IU/mL Blood Venipuncture / Unknown 02/11/2025 10:21 AM EST 02/11/2025 10:34 AM EST us Katina Vasquez MD LAB BLOOD ORDERABLES Final Res ult [facility] DEPARTMENT OF LABORATORY MEDICINE [address] [place] [address] * Bilirubin, direct (02/11/2025 10:21 AM EST) Bilirubin, Direct 0.2 <=0.2 mg/dL 02/11/2025 11:[address] [facility] DEPARTMENT OF LABORATORY MEDICINE Comment: Effective 11/26/2024 [facility] changed the Direct Bilirubin testing method from the Martha method to the Randox method. Blood Venipuncture / Unknown 02/11/2025 10:21 AM EST 02/11/2025 10:34 AM EST us Fiona Squires MD LAB BLOOD ORDERABLES Final Resul t [facility] DEPARTMENT OF LABORATORY MEDICINE [address] [place] [address] * (ABNORMAL) CBC auto differential (02/11/2025 10:21 AM EST) WBC 7.9 4.0 - 11.0 x1000/ L 02/11/2025 10:[address] [facility] DEPARTMENT OF LABORATORY MEDICINE RBC 3.50(L) 4.00 - 6.00 M/ L 02/11/2025 10:[address] [facility] DEPARTMENT OF LABORATORY MEDICINE Hemoglobin 10.1(L) 11.7 - 15.5 g/dL 02/11/2025 10:[address] [facility] DEPARTMENT OF LABORATORY MEDICINE Hematocrit 31.00(L) 35.00 - 45.00 % 02/11/2025 10:[address] [facility] DEPARTMENT OF LABORATORY MEDICINE MCV 88.6 80.0 - 100.0 fL 02/11/2025 10:[address] [facility] DEPARTMENT OF LABORATORY MEDICINE MCH 28.9 27.0 - 33.0 pg 02/11/2025 10:[address] [facility] DEPARTMENT OF LABORATORY MEDICINE MCHC 32.6 31.0 - 36.0 g/dL 02/11/2025 10:[address] [facility] DEPARTMENT OF LABORATORY MEDICINE RDW-CV 12.4 11.0 - 15.0 % 02/11/2025 10:[address] [facility] DEPARTMENT OF LABORATORY MEDICINE Platelets 335 150 - 420 x1000/ L 02/11/2025 10:[address] [facility] DEPARTMENT OF LABORATORY MEDICINE MPV 11.0 8.0 - 12.0 fL 02/11/2025 10:[address] [facility] DEPARTMENT OF LABORATORY MEDICINE Neutrophils 54.7 39.0 - 72.0 % 02/11/2025 10:[address] [facility] DEPARTMENT OF LABORATORY MEDICINE Lymphocytes 31.8 17.0 - 50.0 % 02/11/2025 10:[address] [facility] DEPARTMENT OF LABORATORY MEDICINE Monocytes 9.0 4.0 - 12.0 % 02/11/2025 10:[address] [facility] DEPARTMENT OF LABORATORY MEDICINE Eosinophils 3.2 0.0 - 5.0 % 02/11/2025 10:[address] [facility] DEPARTMENT OF LABORATORY MEDICINE Basophil 0.3 0.0 - 1.4 % 02/11/2025 10:[address] [facility] DEPARTMENT OF LABORATORY MEDICINE Immature Granulocytes 1.0 0.0 - 1.0 % 02/11/2025 10:[address] [facility] DEPARTMENT OF LABORATORY MEDICINE nRBC 0.0 0.0 - 1.0 % 02/11/2025 10:[address] [facility] DEPARTMENT OF LABORATORY MEDICINE Absolute Lymphocyte Count 2.52 0.60 - 3.70 x 1000/ L 02/11/2025 10:[address] [facility] DEPARTMENT OF LABORATORY MEDICINE Monocyte Absolute Count 0.71 0.00 - 1.00 x 1000/ L 02/11/2025 10:[address] [facility] DEPARTMENT OF LABORATORY MEDICINE Eosinophil Absolute Count 0.25 0.00 - 1.00 x 1000/ L 02/11/2025 10:[address] [facility] DEPARTMENT OF LABORATORY MEDICINE Basophil Absolute Count 0.02 0.00 - 1.00 x 1000/ L 02/11/2025 10:[address] [facility] DEPARTMENT OF LABORATORY MEDICINE Absolute Immature Granulocyte Count 0.08 0.00 - 0.30 x 1000/ L 02/11/2025 10:[address] [facility] DEPARTMENT OF LABORATORY MEDICINE Absolute nRBC 0.00 0.00 - 1.00 x 1000/ L 02/11/2025 10:[address] [facility] DEPARTMENT OF LABORATORY MEDICINE ANC (Abs Neutrophil Count) 4.35 2.00 - 7.60 x 1000/ L 02/11/2025 10:[address] [facility] DEPARTMENT OF LABORATORY MEDICINE Blood Venipuncture / Unknown 02/11/2025 10:21 AM EST 02/11/2025 10:34 AM EST us Katina Vasquez MD LAB BLOOD ORDERABLES Final Res ult [facility] DEPARTMENT OF LABORATORY MEDICINE [address] [place] [address] * (ABNORMAL) Comprehensive metabolic panel (02/11/2025 10:21 AM EST) Sodium 143 136 - 144 mmol/L 02/11/2025 11:[address] [facility] DEPARTMENT OF LABORATORY MEDICINE Potassium 4.4 3.3 - 5.3 mmol/L 02/11/2025 11:[address] [facility] DEPARTMENT OF LABORATORY MEDICINE Chloride 108(H) 98 - 107 mmol/L 02/11/2025 11:[address] [facility] DEPARTMENT OF LABORATORY MEDICINE CO2 25 20 - 30 mmol/L 02/11/2025 11:[address] [facility] DEPARTMENT OF LABORATORY MEDICINE Anion Gap 10 7 - 17 02/11/2025 11:[address] [facility] DEPARTMENT OF LABORATORY MEDICINE Glucose 92 70 - 100 mg/dL 02/11/2025 11:[address] [facility] DEPARTMENT OF LABORATORY MEDICINE BUN 9 6 - 20 mg/dL 02/11/2025 11:[address] [facility] DEPARTMENT OF LABORATORY MEDICINE Creatinine 0.94 0.40 - 1.30 mg/dL 02/11/2025 11:[address] [facility] DEPARTMENT OF LABORATORY MEDICINE Calcium 9.5 8.8 - 10.2 mg/dL 02/11/2025 11:[address] [facility] DEPARTMENT OF LABORATORY MEDICINE BUN/Creatinine Ratio 9.6 8.0 - 23.0 02/11/2025 11:[address] [facility] DEPARTMENT OF LABORATORY MEDICINE Total Protein 6.1 5.9 - 8.3 g/dL 025 11:[address] [facility] DEPARTMENT OF LABORATORY MEDICINE Albumin 4.0 3.6 - 5.1 g/dL 02/11/2025 11:[address] [facility] DEPARTMENT OF LABORATORY MEDICINE Total Bilirubin 0.6 <=1.2 mg/dL 02/12/20 11:[address] [facility] DEPARTMENT OF LABORATORY MEDICINE Alkaline Phosphatase 62 9 - 122 U/L 02/11/2025 11:[address] [facility] DEPARTMENT OF LABORATORY MEDICINE Alanine Aminotransferase (ALT) 48(H) 10 - 35 U/L 02/11/2025 11:18 AM [facility] OF LABORATORY MEDICINE Comment:Calcium dobesilate c an cause artificially low ALT results at therapeutic concentrations Aspartate Aminotransferase (AST) 20 10 - 35 U/L 02/11/2025 11:18 AM [facility] LABORATORY MEDICINE Globulin 2.1 2.0 - 3.9 g/dL 02/11/2025 11:[address] [facility] DEPARTMENT OF LABORATORY MEDICINE A/G Ratio 1.9 1.0 - 2.2 02/11/2025 11:18 AM [facility] LABORATORY MEDICINE AST/ALT Ratio 0.4 Reference Range Not Established 02/11/2025 11:[address] [facility] DEPARTMENT OF LABORATORY [facility] eGFR (Creatinine) >60 >=60 mL/min/1.73m2 02/11/2025 11:[address] [facility] DEPARTMENT OF LABORATORY MEDICINE Comment: [facility] utilizes CKD-EPI Creatinine 2020 to report eGFR. Values < 60 mL/min/1.73 m2 may indicate CKD if present for more than three months AND creatinine is at steady state. The eGFR provides a rough estimate of kidney function. For further guidance, please refer to the CKD: Adult [employer] Signature pathway. Creatinine Delta 0.33(H) See Comment 11:18 AM [facility] OF LABORATORY MEDICINE Comment: Delta creatinine is [...] and 5 mg/dL. Blood Venipuncture / Unknown 02/11/2025 10:21 AM EST 02/11/2025 10:34 AM EST Katina Vasquez MD LAB BLOOD ORDERABLES Final Res ult [facility] DEPARTMENT OF LABORATORY MEDICINE [address] [place] [address] * Vitamin D, 25-hydroxy (02/11/2025 10:21 AM EST) Vitamin D 25-Hydroxy Total 27 See Comment ng/mL 02/11/2025 11:18 AM EST [facility] DEPARTMENT OF LABORATORY MEDICINE Comment: Reference Ranges: <10 ng/mL - Severe deficiency 10-19 ng/mL - Mild to moderate deficiency 20-50 ng/mL - Optimum Levels 51-80 ng/mL - Increased risk of hypercalciuria >80 ng/mL - Toxicity possible Blood Venipuncture / Unknown 02/11/2025 10:21 AM EST 02/11/2025 10:34 AM EST Katina Vasquez MD LAB BLOOD ORDERABLES Final Res ult Performing Organization Address [facility] Co de Phone Number [facility] DEPARTMENT OF LABORATORY MEDICINE [address] [place] [address] * (ABNORMAL) T3 (02/11/2025 10:21 AM EST) T3, Total 311.0(H) See Comment ng/dL 02/11/2025 11:40 AM EST [facility] DEPARTMENT OF LABORATORY MEDICINE Comment: Male & Non- Females: 72.0-153.0 ng/dL 1st Trimester: 92.0-224.0 ng/dL 2nd Trimester: 99.0-242.0 ng/dL Blood Venipuncture / Unknown 02/11/2025 10:21 AM EST 02/11/2025 10:34 AM EST Fiona Squires MD LAB BLOOD ORDERABLES Final Resul t [facility] DEPARTMENT OF LABORATORY MEDICINE [address] [place] [address] * (ABNORMAL) T4, free (02/11/2025 10:21 AM EST) Free T4 3.44(H) See Comment ng/dL 02/11/2025 11:18 AM EST [facility] DEPARTMENT OF LABORATORY MEDICINE Comment: For patients [...] MD LAB BLOOD ORDERABLES Final Resul t [facility] DEPARTMENT OF LABORATORY MEDICINE [address] [place] [address], [facility] [phone] documented in this encounter Visit Diagnoses Diagnosis Graves disease Toxic diffuse goiter without mention of thyrotoxic crisis or storm Graves' disease Toxic diffuse goiter without mention of thyrotoxic crisis or storm documented in this encounter Care Teams Health Plan Advisor Relationship Specialty Start Date End Date [address] [address] PCP - General 01/31/25 documented as of this encounter
--- OUTSIDE RECORDS SUMMARY | 2025-02-12 11:30 | XMS_ITS | Encounter Summary ---
Author Organization [facility] Address [address] [place] [address] Phone Care Team Providers Care Operator And Truck Driver Name Role Phone Pcp, Not Required Primary Care Provider Unavaila ble Reason for Visit * Physical Therapy (Within 1 month) - Authorized Specialty Diagnoses / Procedures Referred By Contac t Referred To Contact Physical Therapy Diagnoses Labral tear of long head of right biceps tendon, sequela Nikita Mireles PA-C [address] [place] [address] Dr. Meghann [place] Phone: tel: fax: [email or web address] [facility] [address] [place] [address] Phone: tel: Referral ID Status Reason Start Date Expiration Date V isits Requested Visits Authorized [id number] Authorized 11/26/2024 02/24/2025 16 16 Encounter Details Date Type Department Care Team (Late st Contact Info) Description 02/12/2025 11:30 AM EST Office Visit [facility] Rehabilitation Services [address] [place] [address] Nikita Mireles PA-C [address] [place] [address] Dr. Meghann [place] [email or web address] Karyna Longoria, PT [address] [place] [address] Weakness of right shoulder (Primary Dx) Social [...] Progress Notes * Karyna Aguirre, PT - 02/12/2025 11:30 AM EST Physical Therapy Treatment/Progress Note Patient Name: Paul Estrella Date of : 1985 This patient has attended 10 visits since the onset Physical Therapy. Referring MD: Nikita Mireles PA-C [address] [place] [address] [place] [address] Weakness of right shoulder [R29.898] Precautions: Asthma, follow Dr. Sweeney's std rotator cuff protocol Pt s/p R: -shoulder arthroscopic rotator cuff repair of supraspinatus -biceps tenodesis -Subacromial decompression -Debridement of labrum Performed on 11/12/24 ---- 3 weeks 12/03 5 weeks 12/17 10 weeks: 01/21 ---- Next f/u: 03/02/25 At last follow up with Dr. Sweeney [...] and consider strengthening exercises. Subjective comments: Pt 13 weeks and 1 days s/p R rotator cuff repair. States she was hospitalized over the last month in [facility], then transferred to [facility] secondary to severe hyperthyroidism and kidney stones. States she missed her orthopedic follow up this week but has rescheduled to 03/02, will be trying to get it moved up if possible. States she worked diligently on her exercises whilein the hospital, even began to use small 1lb weights while laying down. States she still has pain from kidney stones is continuing to work with [place] [employer] to manage her hyperthyroidism. Denies pain in the R shoulder, states it has been feeling good. Able to now do hair, reach behind her back. Isstill being careful with lifting things. Pain comments pre-treatment: No R shoulder pain Objective Measures: PROM: R shoulder: PROM: full with exception of 170 deg abduction, AROM: full and symmetrical with L UE with exception of 170 deg abduction, no reports of pain or discomfort, no scapular shrug/upper trapezius compensation Strength: Tested gently on R: Grossly 4+/5 on R, no reports of pain Interventions: Procedural Interventions Parameters THERAPEUTIC EXERCISE Progress note performed Standing flexion and abduction AROM 2x10 each Standing abduction wall side end-range stretch 30s x 2 R UE Standing flexion stretch at doorway R UE 30s x 2 ABC at wall with ball R UE x 1 Rows red band emphasis on scapular retraction 2x15 Banded ER elbows at side 1 tail of yellow band 2x10 R UE (no pain reported) THERAPEUTIC ACTIVITIES N/a NEUROMUSCULAR RE-ED N/a MANUAL THERAPY N/a MODALITIES N/a Home Exercise Program: Access Code: [email or web address] URL: [email or web address] Date: 02/12/2025 Prepared by: Karyna Aguirre Exercises - Doorway unilateral shoulder flexion wall slide - 1 x daily - 7 x weekly - 2 sets - 30s hold - Standing Shoulder Flexion Full Range - 1 x daily - 7 x weekly - 2 sets - 10 reps - Standing Shoulder Abduction Full Range - 1 x daily - 7 x weekly - 2 sets - 10 reps - Shoulder Alphabet with Ball at Wall - 1 x daily - 7 x weekly - 1 sets - Shoulder External Rotation and Scapular Retraction with Resistance - 1 x daily - 7 x weekly - 2 sets - 10 reps - Standing Row with Anchored Resistance - 1 x daily - 7 x weekly - 2-3 sets - 10 reps Assessment: Paul returns to PT, has not been seen since 01/18/15 secondary to complex and prolonged hospitalization. Pt reports diligence with HEP while in hospital, and is now demonstrating full active and passive range of motion with exception of R shoulder abduction. Pt demonstrates R shoulder strength deficits and has been limiting lifting with the R shoulder such as lifting daughter or anything heavierthan a coffee cup. Pt will benefit from further skilled PT to address strength and remaining range of motion deficits for full return to prior level of function, and to become independent with final HEP for self management upon discharge. Pt in agreement with plan. Goals: GOAL (Short Term): in 2-3 wks 1.PROM right shoulder IR to 75 degr GOAL MET 2.PROM right shoulder elevation 125 GOAL MET 12/30/24 OUTCOME (Database Report Writer): By Dec 17.PROM: -sh elevation to 165 GOAL MET -Abd to 150 GOAL MET -ER 80 GOAL MET -IR 80 GOAL MET -Indep with AAROM GOAL MET By Dec 31: 2.AROM -AROM sh elevation and abduction to 130 with normal scapular mechanics - to allow ability to do hair GOAL MET 3.Sleep unlimited by shoulder discomfort GOAL MET 4.By Jan 21 AROM sh elevation > 160 with normal scapula mechanics GOAL MET. By Feb 04: -symmetrical AROM of left shoulder- for overhead reaching Progressing 02/12/25 -indep with strengthening ex PROGRESSING 02/12/25 Patient Stated Goal: Unlimited use of left UE PROGRESSING 02/12/25 PLAN Frequency and Duration: Patient will be seen 8-10 additional appointments PROM per protocol AROM per protocol [facility] isometrics starting Dec 31 Strengthening (tband, dynamic stab) start Jan 31 Plan: Progress through Dr. Sweeney's rotator cuff protocol Next visit: Strengthening and ROM into abduction Karyna Aguirre, [place] [id number] documented in this encounter Plan of Treatment Upcoming Encounters Date Type Department Care Team (Late st Contact Info) Description 02/17/2025 10:00 AM EST Office Visit [address] [place] [address] Nikita Mireles PA-C [address] [place] [address] [place] [address] Karyna Aguirre, PT [address] [place] [address] 02/19/2025 1:00 PM EST Office Visit [facility] [address] [place] [address] Nikita Mireles PA-C [address] [place] [address] [place] [address] Karyna Aguirre, PT [address] [place] [address] 02/22/2025 10:00 AM EST Office Visit [address] [place] [address] Nikita Mireles PA-C [address] [place] [address] [place] [address] Karyna Aguirre, PT [address] [place] [address] 02/24/2025 10:45 AM EST Office Visit [address] [place] [address] Nikita Mireles PA-C [address] [place] [address] [place] [address] Karyna Aguirre, PT [address] [place] [address] 03/02/2025 2:00 PM EST Office Visit [facility] [address] [place] [address] [place] [address] Nikita Mireles PA-C [address] [place] [address] [place] [address] documented as of this encounter Visit Diagnoses Diagnosis Weakness of right shoulder- Primary documented in this encounter Care Teams Operator And Truck Driver Relationship Specialty Start Date End Date Pcp, Not Required PCP - General 11/09/15 documented as of this encounter Additional Source Comments The information contained in this document represents components of the legal health record. It is not the complete legal health record.[facility]
--- NOTE | 2025-02-13 17:02 | ECG_ITS ---
Test Reason : TACHYCARDIA Blood Pressure : */* mmHG Vent. Rate : 100 BPM Atrial Rate : 100 BPM P-R Int : 130 ms QRS Dur : 74 ms QT Int : 338 ms P-R-T Axes : 19 24 28 degrees QTcB Int : 436 ms Normal sinus rhythm Cannot rule out Anterior infarct (cited on or before 20-Jan-2025) Abnormal ECG When compared with ECG of 20-Jan-2025 12:55, Vent. rate has decreased by 49 bpm Referred By: Marilou Cee Electronically Signed By: OSMIN BACH
[2025-02-13 17:11] VITALS: BP 156/83; PULSE 97; RESP 18; TEMP 36.6; O2SAT 99; BMI 25.8
--- NOTE | 2025-02-13 17:12 | ED.GENADULT ---
HPI - General Adult General Chief complaint: General Medical Stated complaint: palpitations Related Data Home Medications ?Medication ?Instructions ?Recorded ?Confirmed ibuprofen 600 mg tablet 600 mg PO Q6H 02/10/25 02/10/25 metoclopramide HCl 5 mg tablet 5 mg PO DAILY PRN nausea/vomiting 02/10/25 02/10/25 oxycodone 5 mg tablet mg PO 02/10/25 02/10/25 tamsulosin 0.4 mg capsule 0.4 mg PO DAILY 02/10/25 02/10/25 Previous Rx's ?Medication ?Instructions ?Recorded acetaminophen 500 mg tablet 1,000 mg (2 x 500 mg) PO Q8H PRN 12/17/24 (Tylenol Extra Strength) pain #30 tabs methimazole 10 mg tablet 10 mg PO DAILY #60 tabs 02/10/25 propranolol 40 mg tablet 40 mg PO BID #90 tabs 02/10/25 Allergies Allergy/AdvReac Type Severity Reaction Status Date / Time ceftriaxone Allergy Hives Verified 02/13/25 17:13 Iodinated Contrast Media Allergy Hives Verified 02/13/25 17:13 (Contrast Dye) [facility] Past Medical History Medical History (Updated 02/14/25 @ 10:55 by ZACHERY Eckert) Asthma Kidney stone Medullary sponge kidney Surgical History (Updated 02/10/25 @ 14:02 by ELIEZER Wood) H/O right shoulder surgery Social History Social History Household Members: Spouse and Children Housing: House Alcohol intake: never Patient Tobacco Use Status: Never used Tobacco e-Cigarette/Vaping Use: Never Used Advance Directives: No Advance Directives Information Provided: No Do you have a plan to hurt others: No Plan Current occupational status: employed 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 Full HPI, ROS, assessment and treatment plan per primary provider in the Main ED. Hx: 39 yo F hx hyperthyroidism here for eval of palpitations. also reporting pain secondary to renal stone. patient was seen at our facility on 01/20 - noted to have renal stone along with thyroid storm, transferred to [place], then transfered to [place]. d/c 2 days ago. has not picked up her thyroid medication. Plan: labs, UA, ekg Reevaluation(s) Reevaluation #1: Patient left the emergency department before myself or any of the other clinicians could review or explain physical exam findings, test results, need or lack there of for additional testing, treatment options, or a treatment plan. Discharge Plan Discharge Clinical Impression: Palpitation Patient Disposition: Left W/O Completing Treatment Prescriptions: No Action acetaminophen [Tylenol Extra Strength] 500 mg tablet 1,000 mg PO Q8H PRN (Reason: pain) Qty: 30 0RF metoclopramide HCl 5 mg tablet 5 mg PO DAILY PRN (Reason: nausea/vomiting) tamsulosin 0.4 mg capsule 0.4 mg PO DAILY ibuprofen 600 mg tablet 600 mg PO Q6H oxycodone 5 mg tablet PO propranolol 40 mg tablet 40 mg PO BID Qty: 90 3RF methimazole 10 mg tablet 10 mg PO DAILY Qty: 60 3RF Discharge Date/Time: 02/13/25 17:54
--- OUTSIDE RECORDS SUMMARY | 2025-02-13 17:42 | XMS_ITS | Encounter Summary ---
Author Organization [facility] Address [address] [place] [address] Phone Care Team Providers Care Screen Printing Machine Operator Helper Name Role Phone Pcp, Not Required Primary Care Provider Unavaila ble Encounter Details Date Type Department Care Team (Late st Contact Info) Description 09/17/2023 Procedure Pass [facility], [address] [place] [address] Social History Tobacco Use Types Packs/Day Years [...] Description 02/17/2025 10:00 AM EST Office Visit [facility] Rehabilitation Services [address] [place] [address] Nikita Mireles PA-C [address] [place] [address] [place] [address] Karyna Aguirre, PT [address] [place] [address] [email or web address] 02/19/2025 1:00 PM EST Office Visit [address] [place] [address] Nikita Mireles PA-C [address] [place] [address] [place] [address] Karyna Aguirre, PT [address] [place] [address] [email or web address] 02/22/2025 10:00 AM EST Office Visit [facility] [address] [place] [address] Nikita Mireles PA-C [address] [place] [address] [place] [address] Karyna Aguirre, PT [address] [place] [address] [email or web address] 02/24/2025 10:45 AM EST Office Visit [facility] [address] [place] [address] Nikita Mireles PA-C [address] [place] [address] [place] [address] Karyna Aguirre, PT [address] [place] [address] [email or web address] 03/02/2025 2:00 PM EST Office Visit [facility] Medicine [address] [place] [address] [place] [address] Nikita Mireles PA-C [address] [place] [address] [email or web address] documented as of this encounter Visit Diagnoses Not on filedocumented in this encounter Additional Health Concerns Infection Onset Date Last Indicated Resolved Time CoV-Risk 06/18/2024 06/18/2024 06/29/2024 1:23 AM EDT documented as of this encounter Care Teams Screen Printing Machine Operator Helper Relationship Specialty Start Date End Date Pcp, Not Required PCP - General 11/09/15 documented as of this encounter Additional Source Comments The information contained in this document represents components of the legal health record. It is not the complete legal health record.[facility]
--- OUTSIDE RECORDS SUMMARY | 2025-02-13 17:42 | XMS_ITS | Encounter Summary ---
Author Organization [facility] Address [address] [place] [address] Care Team Providers Care Kiln Stoker Name Role Phone [facility] Primary Care Provider [phone] Encounter Details Date Type Department Care Team (Late st Contact Info) Description 02/11/2025 Patient Outreach [facility] Call Center [address] [place] [phone] Alicia Atkins RN Social History Tobacco Use Types Packs/Day Years [...] things needed for daily living? No 02/02/2025 [facility] Utilities Answer Date Recorded In the past 12 months has [facility] electric, gas, oil, or water company [...] on file documented as of this encounter Progress Notes * Alicia Atkins RN - 02/11/2025 12:07 PM EST [facility] Post Discharge Outreach: Transition of Care Note Risk of Unplanned Readmission: 9.68% PERTINENT INFORMATION: - [facility] eligible through 02/22/2025 [facility] Post Discharge Outreach spoke with: Patient Discharging Hospital: Hospital Discharge Date: Discharge location: HOSPITALIZATION: CURRENT STATE: Since discharge patient reports feeling: Better Pt reports she is much better . She saw Dr. Vasquez today at [facility]. Reviewed meds w her. She did not feel the need to review again w this grant writer. Reviewed upcoming apts. Her will take her. She will call back if any q/c. Patient cared for by: Spouse Independent REVIEW OF AFTER VISIT SUMMARY DOCUMENT: Patient specific questions regarding discharge: no MEDICATION CHANGES: Validated NEW medications to take: Yes Validated Changed medications to take: Yes Validated Stopped medications to NOT take: Yes Issues obtaining prescriptions: Additional medication related notes: Pt reviewed meds w Dr. Vasquez today. FOLLOW-UP APPOINTMENTS and TRANSPORTATION: Patient aware of scheduled appointments: Yes Transportation concerns for follow-up appointment: No DME and HOME HEALTH SERVICES: Durable medical equipment received: N/A Contact has been made with home care agency: N/A documented in this encounter Miscellaneous Notes * Telephone Encounter - Alicia Atkins RN - 02/11/2025 8:52 AM EST Copied from [facility] #[id number]. Topic: Discharge Patient Outreach - [place] >> Feb 11, 2025 8:52 AM Alicia Ga wrote: Outreach call for SHE[facility]. Alicia Atkins RN documented in this encounter Plan of Treatment Upcoming Encounters Date Type Department Care Team (Late st Contact Info) Description 02/22/2025 9:00 AM EST Office Visit [facility] at [address] [facility] [address] [place] [address] Anand Robbins MD [address] [place] [phone] 06/02/2025 1:45 PM EDT Office Visit [facility] [address] [facility] [address] [place] [address] Katina Vasquez MD [address] [facility] [address] [place] [address] documented as of this encounter Visit Diagnoses Not on filedocumented in this encounter Care Teams Kiln Stoker Relationship Specialty Start Date End Date [address] [address] PCP - General 01/31/25 documented as of this encounter
--- OUTSIDE RECORDS SUMMARY | 2025-02-13 17:42 | XMS_ITS | Encounter Summary ---
Author Organization [facility] Address [address] [place] [address] Care Team Providers Care Railroad Supervisor Of Engines Name Role Phone [facility] Primary Care Provider [phone] Encounter Details Date Type Department Care Team (Late st Contact Info) Description 02/05/2025 Scanned Document INTERFACE DEFAULT [address] [place] [phone] System, Provider Not In Social History Tobacco Use Types Packs/Day Years [...] things needed for daily living? No 02/02/2025 [facility] Utilities Answer Date Recorded In the past 12 months has [facility] electric, gas, oil, or water company threatened to shut off services in your home? No 02/02/2025 Housing Stability Answer Date Recorded What is your living situation today? I have a nieves place to live 02/02/2025 Housing Stability [...] on file documented as of this encounter Plan of Treatment Upcoming Encounters Date Type Department Care Team (Late st Contact Info) Description 02/22/2025 9:00 AM EST Office Visit [facility] [address] [facility] [address] [facility] [address] [place] [address] Anand Robbins MD [address] [place] [address] 06/02/2025 1:45 PM EDT Office Visit [facility] [address] [facility] [place] [address] Katina Vasquez MD 35 [facility] 4 [place] [phone] documented as of this encounter Procedures Procedure Name Priority Date/Time Associated Diagnosis Comments CARDIAC MISC. RESULT SCAN 02/05/2025 12:00 AM EST documented in this encounter Results * Cardiac Misc.?? Result Scan (02/05/2025 12:00 AM EST) us Provider Not In System CV CARDIAC REPORT (CVR) F inal Result documented in this encounter Visit Diagnoses Not on filedocumented in this encounter Care Teams Railroad Supervisor Of Engines Relationship Specialty Start Date End Date [address] [address] PCP - General 01/31/25 documented as of this encounter
--- OUTSIDE RECORDS SUMMARY | 2025-02-13 17:42 | XMS_ITS | Clinical Summary ---
Author Organization [address] Address [address] [place] [address] Phone Care Team Providers Care Clinical Product Specialist Name Role Phone [facility] Primary Care Provider [phone] Allergies Active Allergy Reactions Criticality Noted Date [...] as needed for pain. 56 tablet 5 025 Active methIMAzole (TAPAZOLE) 5 mg tablet Take [...] up to 5 days. 15 tablet 5 025 Active polyethylene glycol (MIRALAX) 17 gram packet Take 1 packet (17 g total) by mouth 2 (two) times daily for 5 days. Mix in 8 ounces of water, juice, soda, coffee or tea prior to taking. 10 packet 5 025 Active Additional Information Patient not taking.Reported on 02/11/2025 tamsulosin (FLOMAX) 0.4 mg 24 hr capsule Take 1 capsule (0.4 mg total) by mouth nightly. 30 capsule 5 Active diazePAM (VALIUM) 2 mg tablet Take 1 tablet (2 mg total) by mouth daily as needed (renal stent colic, muscle spasm). 28 tablet 5 Active propranoloL (INDERAL) 20 mg Immediate Release tablet Take 1 tablet (20 mg total) by mouth every 8 (eight) hours. 90 tablet 1 5 Active metoclopramide HCl (REGLAN) 10 mg tablet Take 1 tablet (10 mg total) by mouth every 6 (six) hours as needed for nausea or vomiting for up to 10 days. 20 tablet 5 Active lidocaine uro-jet (XYLOCAINE) 2 % jelly 11 mLs by Other route 3 (three) times daily. 900 mL 1 5 Active acetaminophen (TYLENOL) 500 mg tablet Take 2 tablets (1,000 mg total) by mouth every 6 (six) hours as needed for pain. 30 tablet 11 5 026 Active ALPRAZolam (XANAX) 0.25 mg tablet Take 1 tablet (0.25 mg total) by mouth 3 (three) times daily as needed for anxiety. Discontinu ed(Stop Taking at Discharge) propranoloL (INDERAL) 40 mg Immediate Release tablet Take 1 tablet (40 mg total) by mouth 3 (three) times daily. Discontinu ed(Stop Taking at Discharge) propylthiourac iL (PTU) 50 mg tablet Take 2 tablets (100 mg total) by mouth 3 (three) times daily. Discontinu ed(Stop Taking at Discharge) oxyCODONE (ROXICODONE) 10 mg Immediate Release tablet Take 1 tablet (10 mg total) by mouth every 4 (four) hours as needed for up to 3 days. 8 tablet 5 senna 8.6 mg tablet Take 1 tablet (8.6 mg total) by mouth nightly as needed for constipation. 30 tablet 3 5 025 Discontinu ed(!Delete Cleanup (No Cancel Msg)) Active Problems Problem Noted Date Diagnosed Date Graves disease 02/01/2025 Encounters Date Type Department Care Team Description 02/11/2025 10:07 AM EST - 02/11/2025 11:59 PM EST Hospital Encounter [facility] Draw Station [address] [place] [address] Katina Vasquez MD Graves disease; Graves' disease Discharge Disposition: Home or Self Care 02/11/2025 9:00 AM EST Office Visit [facility] Endocrine Neoplasia [address] [place] [address] Katina Vasquez MD Graves' disease (Primary Dx) 02/11/2025 Patient Outreach [facility] Call Center [address] [place] [address] Alicia Atkins, YOLANDA 02/10/2025 Patient Outreach [facility] Call Center [address] [place] [address] Alicia Atkins, RN Hospital Discharge Follow Up 02/08/2025 [place] [address] Quentin Bartlett MD Appointment 02/05/2025 Scanned Document INTERFACE DEFAULT [address] [place] [address] System, Provider Not In 02/02/2025 12:19 PM EST Anesthesia Event Perioperative Services [facility] [address] [place] [address] Panchito Martinez MD 02/02/2025 10:39 AM EST - 02/02/2025 11:58 AM EST Surgery Perioperative Services [facility] [address] [place] [address] Rodriguez Shukla MD CYSTOURETHROSCOPY, W/INSERTION, INDWELLING URETERAL STENT 01/31/2025 9:42 PM EST - 02/08/2025 7:39 PM EST Hospital Encounter EP [id number] [place] [address] Chintan, Marie P, MD Rodriguez, Dontae, MD Morales, MD Eusebio Melara Joshua A, MD Kang, Heejae, MD Calo, [...] things needed for daily living? No 02/02/2025 [facility] Utilities Answer Date Recorded In the past 12 months has [employer] electric, gas, oil, or water [employer] threatened to shut off services in your [...] oz) 02/11/2025 9:05 A M EST Height 167.6 cm (5' 6 ) 02/02/2025 4:00 PM EST Body Mass Index 26.19 02/02/2025 4:00 PM EST Plan of Treatment Upcoming Encounters Date Type Department Care Team (Late st Contact Info) Description 02/22/2025 9:00 AM EST Office Visit [facility] [address] [facility] [address] [facility] [address] [place] [address] Anand Robbins MD [address] [place] [address] 06/02/2025 1:45 PM EDT Office Visit [facility] Endocrine Neoplasia [address] [facility] [place] [address] Katina Vasquez MD [address] [facility] 4 [place] [address] Health Maintenance Due Date Last Done Comments HIV screening 06/25/1999 Hepatitis C screening 2004 Tetanus adult (Td q 10,TDAP once) 2006 Cervical cancer screening 06/25/2007 Influenza vaccine 10/09/2024 Covid-19 vaccine series ( season) 2024 RSV Immunization (1 - 1-dose [...] this topic Medical Devices Implanted Type Area Tool Setter Apprentice Device Identifier Shelf Expiration Date Model / Serial / Lot Stent Ascerta 6f X 24cm - [id number] Implanted:Qt y: 1 on 02/02/2025 by Rodriguez Shukla MD at [facility] [address] Stent, Urological Right: Ureter [employer] [id number] 06/09/2026 [id number] 130 / / [id number] Procedures Procedure Name Priority Date/Time Associated Diagnosis Comments CBC AND DIFFERENTIAL Routine 02/11/2025 10:21 AM EST Graves' disease COMPREHENSIVE METABOLIC PANEL Routine 02/11/2025 10:21 AM EST Graves' disease TSH Routine 02/11/2025 10:21 AM EST Graves' disease BILIRUBIN, DIRECT Routine 02/11/2025 10:21 AM EST Graves disease CBC WITH AUTO DIFFERENTIAL Routine 02/11/2025 10:21 AM EST Graves' disease COMPREHENSIVE METABOLIC PANEL Routine 02/11/2025 10:21 AM EST Graves' disease VITAMIN D, 25-HYDROXY Routine 02/11/2025 10:21 AM EST Graves' disease T3 Routine 02/11/2025 10:21 AM EST Graves disease T4, FREE Routine 02/11/2025 10:21 AM EST Graves disease COMPREHENSIVE METABOLIC PANEL Routine 02/08/2025 4:12 AM [...] FUNCTION PANEL Routine 02/05/2025 6:11 AM EST CARDIAC MISC. RESULT SCAN 02/05/2025 12:00 AM EST BASIC METABOLIC PANEL Routine 02/04/2025 [...] EST GALA BY IFA W/RFLX TO DSDNA, PHYSICAL THERAPIST, SM, SSA, AND SSB ABS (LMW YH) Routine 02/03/2025 5:02 AM EST URINE CULTURE Urgent 02/02/2025 9:36 PM EST NR FL LESS THAN 1 HOUR EXAM Routine 02/02/2025 1:48 PM EST Right nephrolithiasis NC CYSTOSCOPY,INSERT URETERAL STENT Low Risk 02/02/2025 12:07 [...] Months Results * (ABNORMAL) Comprehensive metabolic panel (02/11/2025 10:21 AM EST) Only the most recent of2 resultswithin the time period is included. Sodium 143 136 - 144 mmol/L 02/11/2025 11:18 AM EST [facility] DEPARTMENT OF LABORATORY MEDICINE Potassium 4.4 3.3 - 5.3 mmol/L 02/11/2025 11:18 AM [facility] DEPARTMENT OF LABORATORY MEDICINE Chloride 108(H) 98 - 107 mmol/L 02/11/2025 11:18 AM [facility] DEPARTMENT OF LABORATORY MEDICINE CO2 25 20 - 30 mmol/L 02/11/2025 11:18 AM [facility] DEPARTMENT OF LABORATORY MEDICINE Anion Gap 10 7 - 17 02/11/2025 11:18 AM [facility] DEPARTMENT OF LABORATORY MEDICINE Glucose 92 70 - 100 mg/dL 02/11/2025 11:18 AM [facility] DEPARTMENT OF LABORATORY MEDICINE BUN 9 6 - 20 mg/dL 02/11/2025 11:18 AM [facility] DEPARTMENT OF LABORATORY MEDICINE Creatinine 0.94 0.40 - 1.30 mg/dL 02/11/2025 11:18 AM [facility] DEPARTMENT OF LABORATORY MEDICINE Calcium 9.5 8.8 - 10.2 mg/dL 02/11/2025 11:18 AM [facility] DEPARTMENT OF LABORATORY MEDICINE BUN/Creatinine Ratio 9.6 8.0 - 23.0 02/11/2025 11:18 AM [facility] DEPARTMENT OF LABORATORY MEDICINE Total Protein 6.1 5.9 - 8.3 g/dL 025 11:18 AM [facility] DEPARTMENT OF LABORATORY MEDICINE Albumin 4.0 3.6 - 5.1 g/dL 02/11/2025 11:18 AM [facility] DEPARTMENT OF LABORATORY MEDICINE Total Bilirubin 0.6 <=1.2 mg/dL 02/12/20 25 11:18 AM [facility] DEPARTMENT OF LABORATORY MEDICINE Alkaline Phosphatase 62 9 - 122 U/L 02/11/2025 11:18 AM [facility] DEPARTMENT OF LABORATORY MEDICINE Alanine Aminotransferase (ALT) 48(H) 10 - 35 U/L 02/11/2025 11:18 AM [facility] DEPARTMENT OF LABORATORY MEDICINE Comment:Calcium dobesilate c an cause artificially low ALT results at therapeutic concentrations Aspartate Aminotransferase (AST) 20 10 - 35 U/L 02/11/2025 11:18 AM [facility] DEPARTMENT OF LABORATORY MEDICINE Globulin 2.1 2.0 - 3.9 g/dL 02/11/2025 11:18 AM [facility] DEPARTMENT OF LABORATORY MEDICINE A/G Ratio 1.9 1.0 - 2.2 02/11/2025 11:18 AM [facility] DEPARTMENT OF LABORATORY MEDICINE AST/ALT Ratio 0.4 Reference Range Not Established 02/11/2025 11:18 AM [facility] DEPARTMENT OF LABORATORY MEDICINE eGFR (Creatinine) >60 >=60 mL/min/1.73m2 02/11/2025 11:18 AM [facility] DEPARTMENT OF LABORATORY MEDICINE Comment: [facility] utilizes CKD-EPI Creatinine 2020 to report eGFR. Values < 60 mL/min/1.73 m2 may indicate CKD if present for more than three months AND creatinine is at steady state. The eGFR provides a rough estimate of kidney function. For further guidance, please refer to the CKD: Adult [employer] Signature pathway. Creatinine Delta 0.33(H) See Comment 025 11:18 AM EST [facility] DEPARTMENT OF LABORATORY MEDICINE Comment: Delta creatinine [...] ORDERABLES Final Res ult Performing Organization Address City/[facility]/ZIP Co de Phone Number [facility] DEPARTMENT OF LABORATORY MEDICINE [address] [place] [address] * Vitamin D, 25-hydroxy (02/11/2025 10:21 AM EST) [facility] Vitamin D 25-Hydroxy Total 27 See Comment ng/mL 02/11/2025 11:18 AM EST [facility] DEPARTMENT OF LABORATORY MEDICINE Comment: Reference Ranges: <10 ng/mL - Severe deficiency 10-19 ng/mL - Mild to moderate deficiency 20-50 ng/mL - Optimum Levels 51-80 ng/mL - Increased risk of hypercalciuria >80 ng/mL - Toxicity possible Blood Venipuncture / Unknown 02/11/2025 10:21 AM EST 02/11/2025 10:34 AM EST Katina Vasquez MD LAB BLOOD ORDERABLES Final Res ult [facility] DEPARTMENT OF LABORATORY MEDICINE [address] [place] [address] * (ABNORMAL) CBC auto differential (02/11/2025 10:21 AM [facility]) Only the most recent of9 resultswithin the time period is included. WBC 7.9 4.0 - 11.0 x1000/ L 02/11/2025 10:53 AM [facility] DEPARTMENT OF LABORATORY MEDICINE RBC 3.50(L) 4.00 - 6.00 M/ L 02/11/2025 10:53 AM [facility] DEPARTMENT OF LABORATORY MEDICINE Hemoglobin 10.1(L) 11.7 - 15.5 g/dL 02/11/2025 10:53 AM [facility] LABORATORY MEDICINE Hematocrit 31.00(L) 35.00 - 45.00 % 02/11/2025 10:53 AM [facility] DEPARTMENT OF LABORATORY MEDICINE MCV 88.6 80.0 - 100.0 fL 02/11/2025 10:53 AM [facility] DEPARTMENT OF LABORATORY MEDICINE MCH 28.9 27.0 - 33.0 pg 02/11/2025 10:53 AM [facility] DEPARTMENT OF LABORATORY MEDICINE MCHC 32.6 31.0 - 36.0 g/dL 02/11/2025 10:53 AM [facility] LABORATORY MEDICINE RDW-CV 12.4 11.0 - 15.0 % 02/11/2025 10:53 AM [facility] DEPARTMENT LABORATORY [facility] Platelets 335 150 - 420 x1000/ L 02/11/2025 10:53 AM [facility] DEPARTMENT OF LABORATORY MEDICINE MPV 11.0 8.0 - 12.0 fL 02/11/2025 10:53 AM [facility] DEPARTMENT OF LABORATORY MEDICINE Neutrophils 54.7 39.0 - 72.0 % 02/11/2025 10:53 AM [facility] DEPARTMENT OF LABORATORY MEDICINE Lymphocytes 31.8 17.0 - 50.0 % 02/11/2025 10:53 AM [facility] DEPARTMENT OF LABORATORY MEDICINE Monocytes 9.0 4.0 - 12.0 % 02/11/2025 10:53 AM [facility] DEPARTMENT OF LABORATORY MEDICINE Eosinophils 3.2 0.0 - 5.0 % 02/11/2025 10:53 AM [facility] DEPARTMENT OF LABORATORY MEDICINE Basophil 0.3 0.0 - 1.4 % 02/11/2025 10:53 AM [facility] DEPARTMENT OF LABORATORY MEDICINE Immature Granulocytes 1.0 0.0 - 1.0 % 02/11/2025 10:53 AM [facility] DEPARTMENT OF LABORATORY MEDICINE nRBC 0.0 0.0 - 1.0 % 02/11/2025 10:53 AM [facility] DEPARTMENT OF LABORATORY MEDICINE Absolute Lymphocyte Count 2.52 0.60 - 3.70 x 1000/ L 02/11/2025 10:53 AM [facility] DEPARTMENT OF LABORATORY MEDICINE Monocyte Absolute Count 0.71 0.00 - 1.00 x 1000/ L 02/11/2025 10:53 AM [facility] DEPARTMENT OF LABORATORY MEDICINE Eosinophil Absolute Count 0.25 0.00 - 1.00 x 1000/ L 02/11/2025 10:53 AM [facility] DEPARTMENT OF LABORATORY MEDICINE Basophil Absolute Count 0.02 0.00 - 1.00 x 1000/ L 02/11/2025 10:53 AM [facility] DEPARTMENT OF LABORATORY MEDICINE Absolute Immature Granulocyte Count 0.08 0.00 - 0.30 x 1000/ L 02/11/2025 10:53 AM [facility] DEPARTMENT OF LABORATORY MEDICINE Absolute nRBC 0.00 0.00 - 1.00 x 1000/ L 02/11/2025 10:53 AM [facility] DEPARTMENT OF LABORATORY MEDICINE ANC (Abs Neutrophil Count) 4.35 2.00 - 7.60 x 1000/ L 02/11/2025 10:53 AM [facility] DEPARTMENT OF LABORATORY MEDICINE Blood Venipuncture / Unknown 02/11/2025 10:21 AM EST 02/11/2025 10:34 AM EST us Katina Vasquez MD LAB BLOOD ORDERABLES Final Res ult [facility] DEPARTMENT OF LABORATORY MEDICINE [address] [place] [address] * (ABNORMAL) T3 (02/11/2025 10:21 AM EST) Only the most recent of6 resultswithin the time period is included. T3, Total 311.0(H) See Comment ng/dL 02/11/2025 11:40 AM EST [facility] DEPARTMENT OF LABORATORY MEDICINE Comment: Male & Non- Females: 72.0-153.0 ng/dL 1st Trimester: 92.0-224.0 ng/dL 2nd Trimester: 99.0-242.0 ng/dL Blood Venipuncture / Unknown 02/11/2025 10:21 AM EST 02/11/2025 10:34 AM EST Fiona Squires MD LAB BLOOD ORDERABLES Final Resul t Performing Organization Address [facility] de Phone Number [facility] OF LABORATORY MEDICINE [address] [place] [address] * (ABNORMAL) TSH (02/11/2025 10:21 AM EST) Thyroid Stimulating Hormone <0.005(L) See Comment IU/mL 02/11/2025 11:18 AM EST [facility] DEPARTMENT OF LABORATORY MEDICINE Comment: Male & Non- Females: 0.270-4.200 IU/mL 1st Trimester: 0.110-3.480 IU/mL 2nd Trimester: 0.320-3.850 IU/mL Blood Venipuncture / Unknown 02/11/2025 10:21 AM EST 02/11/2025 10:34 AM EST Katina Vasquez MD LAB BLOOD ORDERABLES Final Res ult Performing Organization Address [facility] Co de Phone Number [facility] DEPARTMENT OF LABORATORY MEDICINE [address] [place] [address] * (ABNORMAL) T4, free (02/11/2025 10:21 AM EST) Only the most recent of6 resultswithin the time period is included. Free T4 3.44(H) See Comment ng/dL 02/11/2025 11:18 AM EST [facility] DEPARTMENT OF LABORATORY MEDICINE Comment: For [...] ORDERABLES Final Resul t Performing Organization Address [facility] de Phone Number [facility] DEPARTMENT OF LABORATORY MEDICINE [address] [place] [address] * Bilirubin, direct (02/11/2025 10:21 AM EST) Bilirubin, Direct 0.2 <=0.2 mg/dL 02/11/2025 11:18 AM EST [facility] DEPARTMENT OF LABORATORY MEDICINE Comment: Effective 11/26/2024 [facility] changed the Direct Bilirubin testing method from the Martha method to the Randox method. Blood Venipuncture / Unknown 02/11/2025 10:21 AM EST 02/11/2025 10:34 AM EST us Fiona Squires MD LAB BLOOD ORDERABLES Final Resul t Performing Organization Address [facility] Co de Phone Number [facility] DEPARTMENT OF LABORATORY MEDICINE [address] [place] [address] * (ABNORMAL) CBC without differential (02/08/2025 4:12 AM EST) WBC 5.1 4.0 - 11.0 x1000/ L 02/08/2025 4:57 AM EST [facility] DEPARTMENT OF LABORATORY MEDICINE RBC 3.45(L) 4.00 - 6.00 M/ L 02/08/2025 4:57 AM EST [facility] DEPARTMENT OF LABORATORY MEDICINE Hemoglobin 10.3(L) 11.7 - 15.5 g/dL 02/08/2025 4:57 AM [facility] DEPARTMENT OF LABORATORY MEDICINE Hematocrit 30.20(L) 35.00 - 45.00 % 02/08/2025 4:57 AM [facility] DEPARTMENT OF LABORATORY MEDICINE MCV 87.5 80.0 - 100.0 fL 02/08/2025 4:57 AM [facility] DEPARTMENT OF LABORATORY MEDICINE MCH 29.9 27.0 - 33.0 pg 02/08/2025 4:57 AM [facility] DEPARTMENT OF LABORATORY MEDICINE MCHC 34.1 31.0 - 36.0 g/dL 02/08/2025 4:57 AM [facility] DEPARTMENT OF LABORATORY MEDICINE RDW-CV 12.4 11.0 - 15.0 % 02/08/2025 4:57 AM [facility] DEPARTMENT OF LABORATORY MEDICINE Platelets 286 150 - 420 x1000/ L 02/08/2025 4:57 AM [facility] DEPARTMENT OF LABORATORY MEDICINE MPV 11.3 8.0 - 12.0 fL 02/08/2025 4:57 AM [facility] DEPARTMENT OF LABORATORY MEDICINE ANC (Abs Neutrophil Count) 2.04 2.00 - 7.60 x 1000/ L 02/08/2025 4:57 AM [facility] DEPARTMENT OF LABORATORY MEDICINE Blood Venipuncture / Unknown 02/08/2025 4:12 AM EST 02/08/2025 4:47 AM EST Uriel Kaplan MD LAB BLOOD ORDERABLES Final R esult Performing Organization Address City/State/[facility] Co de Phone Number [facility] DEPARTMENT OF LABORATORY MEDICINE [address] [place] [address] * (ABNORMAL) Magnesium (02/08/2025 4:12 AM EST) Only the most recent of7 resultswithin the time period is included. Magnesium 1.5(L) 1.7 - 2.4 mg/dL 02/08/2025 5:15 AM [facility] DEPARTMENT OF LABORATORY MEDICINE Blood Venipuncture / Unknown 02/08/2025 4:12 AM EST 02/08/2025 4:47 AM EST us Uriel Kaplan MD LAB BLOOD ORDERABLES Final R esult [facility] DEPARTMENT OF LABORATORY MEDICINE [address] [place], [place] [id number], [facility] [phone] * (ABNORMAL) Basic metabolic panel (02/07/2025 4:31 AM EST) Only the most recent of8 resultswithin the time period is included. Sodium 141 136 - 144 mmol/L 02/07/2025 5:15 AM [facility] DEPARTMENT OF LABORATORY MEDICINE Potassium 4.1 3.3 - 5.3 mmol/L 02/07/2025 5:15 AM [facility] DEPARTMENT OF LABORATORY MEDICINE Chloride 108(H) 98 - 107 mmol/L 02/07/2025 5:15 AM [facility] DEPARTMENT OF LABORATORY MEDICINE CO2 24 20 - 30 mmol/L 02/07/2025 5:15 AM [facility] DEPARTMENT OF LABORATORY MEDICINE Anion Gap 9 7 - 17 02/07/2025 5:15 AM [facility] DEPARTMENT OF LABORATORY MEDICINE Glucose 107(H) 70 - 100 mg/dL 02/07/2025 5:15 AM [facility] DEPARTMENT OF LABORATORY MEDICINE BUN 12 6 - 20 mg/dL 02/07/2025 5:15 AM [facility] DEPARTMENT OF LABORATORY MEDICINE Creatinine 0.58 0.40 - 1.30 mg/dL 02/07/2025 5:15 AM [facility] DEPARTMENT OF LABORATORY MEDICINE Calcium 9.6 8.8 - 10.2 mg/dL 02/07/2025 5:15 AM [facility] DEPARTMENT OF LABORATORY MEDICINE BUN/Creatinine Ratio 20.7 8.0 - 23.0 02/07/2025 5:15 AM [facility] DEPARTMENT OF LABORATORY MEDICINE eGFR (Creatinine) >60 >=60 mL/min/1.73 m2 02/07/2025 5:15 AM [facility] DEPARTMENT OF LABORATORY MEDICINE Comment: [facility] utilizes CKD-EPI Creatinine 2020 to report eGFR. Values < 60 mL/min/1.73 m2 may indicate CKD if present for more than three months AND creatinine is at steady state. The eGFR provides a rough estimate of kidney function. For further guidance, please refer to the CKD: Adult [employer] Signature pathway. Creatinine Delta -0.02 See Comment 025 5:15 AM EST [facility] DEPARTMENT OF LABORATORY MEDICINE Comment: Delta creatinine [...] BLOOD ORDERABLES Final Result Performing Organization Address City/[facility]/ZIP Co de Phone Number [facility] DEPARTMENT OF LABORATORY MEDICINE [address] [place] [address] * (ABNORMAL) Phosphorus (BH GH L LMW YH) (02/07/2025 4:31 AM EST) Only the most recent of6 resultswithin the time period is included. Phosphorus 5.0(H) 2.2 - 4.5 mg/dL 02/07/2025 5:15 AM EST [facility] DEPARTMENT OF LABORATORY MEDICINE Blood ARM NEC / Unknown Venipuncture / Unknown 02/07/2025 4:31 AM EST 02/07/2025 4:48 AM EST us Gwen Morales MD LAB BLOOD ORDERABLES Final Result Performing Organization Address City/[facility]/ZIP Co de Phone Number [facility] DEPARTMENT OF LABORATORY MEDICINE [address] [place] [address] * (ABNORMAL) Hepatic function panel (02/07/2025 4:31 AM EST) Only the most recent of6 resultswithin the time period is included. Total Bilirubin 0.3 <=1.2 mg/dL 02/08/20 5:15 AM [facility] DEPARTMENT OF LABORATORY MEDICINE Bilirubin, Direct 0.2 <=0.2 mg/dL 2024 5:15 AM [facility] DEPARTMENT OF LABORATORY MEDICINE Comment: Effective 11/26/2024 [facility] changed the Direct Bilirubin testing method from the Martha method to the Randox method. Alkaline Phosphatase 91 9 - 122 U/L 02/07/2025 5:15 AM [facility] DEPARTMENT OF LABORATORY MEDICINE Alanine Aminotransferase (ALT) 107(H) 10 - 35 U/L 02/07/2025 5:15 AM [facility] DEPARTMENT OF LABORATORY MEDICINE Comment:Calcium dobesilate c an cause artificially low ALT results at therapeutic concentrations Aspartate Aminotransferase (AST) 87(H) 10 - 35 U/L 02/07/2025 5:15 AM [facility] DEPARTMENT OF LABORATORY MEDICINE AST/ALT Ratio 0.8 Reference Range Not Established 02/07/2025 5:15 AM [facility] DEPARTMENT OF LABORATORY MEDICINE Total Protein 6.3 5.9 - 8.3 g/dL 025 5:15 AM [facility] DEPARTMENT OF LABORATORY MEDICINE Albumin 3.5(L) 3.6 - 5.1 g/dL 02/07/2025 5:15 AM [facility] DEPARTMENT OF LABORATORY MEDICINE Globulin 2.8 2.0 - 3.9 g/dL 02/07/2025 5:15 AM [facility] DEPARTMENT OF LABORATORY MEDICINE A/G Ratio 1.3 1.0 - 2.2 02/07/2025 5:15 AM [facility] DEPARTMENT OF LABORATORY MEDICINE Blood ARM NEC / Unknown Venipuncture / Unknown 02/07/2025 4:31 AM EST 02/07/2025 4:48 AM EST us Gwen Morales MD LAB BLOOD ORDERABLES Final Result [facility] DEPARTMENT OF LABORATORY MEDICINE [address] [phone] * (ABNORMAL) Urinalysis with culture reflex ([facility]) (02/05/2025 12:52 PM EST) Clarity, UA Cloudy(A) Clear 02/05/2025 2:45 PM [facility] DEPARTMENT OF LABORATORY MEDICINE Color, UA [place](A) Yellow, Colorless 02/05/2025 2:45 PM [facility] MEDIC[facility] Specific [place], UA 1.014 1.005 - 1.030 02/05/2025 2:45 PM [facility] DEPARTMENT OF LABORATORY MEDICINE pH, UA 02/05/2025 2:45 PM [facility] DEPARTMENT OF LABORATORY MEDICINE Comment:Unable to complete u rine macroscopic testing due to color interference. Protein, UA 02/05/2025 2:45 PM [facility] DEPARTMENT OF LABORATORY MEDICINE Comment:Unable to complete u rine macroscopic testing due to color interference. Glucose, UA 02/05/2025 2:45 PM [facility] DEPARTMENT OF LABORATORY MEDICINE Comment:Unable to complete u rine macroscopic testing due to color interference. Ketones, UA 02/05/2025 2:45 PM [facility] DEPARTMENT OF LABORATORY MEDICINE Comment:Unable to complete u rine macroscopic testing due to color interference. Blood, UA 02/05/2025 2:45 PM [facility] DEPARTMENT OF LABORATORY MEDICINE Comment:Unable to complete u rine macroscopic testing due to color interference. Bilirubin, UA 02/05/2025 2:45 PM [facility] DEPARTMENT OF LABORATORY MEDICINE Comment:Unable to complete u rine macroscopic testing due to color interference. Leukocytes, UA 02/05/2025 2:45 PM [facility] DEPARTMENT OF LABORATORY MEDICINE Comment:Unable to complete u rine macroscopic testing due to color interference. Nitrite, UA 02/05/2025 2:45 PM [facility] DEPARTMENT OF LABORATORY MEDICINE Comment:Unable to complete u rine macroscopic testing due to color interference. Urobilinogen, UA 02/05/2025 2:45 PM [facility] DEPARTMENT OF LABORATORY MEDICINE Comment:Unable to complete u rine macroscopic testing due to color interference. Guerrero Top Tube Received ? Yes 02/05/2025 2:45 PM [facility] DEPARTMENT OF LABORATORY MEDICINE Urine Collection / Unknown 02/05/2025 12:52 PM EST 02/05/2025 1:42 PM EST Narrative [facility] DEPARTMENT OF LABORATORY MEDICINE - 02/05/2025 2:45 PM EST Unable to complete urine macroscopic testing due to color interference. us Uriel Kaplan MD URINE ORDERABLES Final Resul t Performing Organization Address [facility] Co de Phone Number [facility]AT[facility] MEDICINE [address] [place] [address] * UA reflex to culture (02/05/2025 12:52 PM EST) Reflex Urine Culture See Comment 02/05/2025 4:01 PM EST [facility] DEPARTMENT OF LABORATORY MEDICINE Urine Collection / Unknown 02/05/2025 12:52 PM EST 02/05/2025 1:42 PM EST Narrative [facility] DEPARTMENT OF LABORATORY MEDICINE - 02/05/2025 4:01 PM EST Urine culture will be reflexed if indicated by urinalysis results. Please check microbiology results for urine culture. us Uriel Kaplan MD URINE ORDERABLES Final Resul t Performing Organization Address [facility] Co de Phone Number [facility] DEPARTMENT OF LABORATORY MEDICINE [address] [place] [address] * (ABNORMAL) Urine microscopic ([facility]) (02/05/2025 12:52 PM EST) Only the most recent of2 resultswithin the time period is included. Manual Microscopic Performed 02/05/2025 3:24 PM [facility] DEPARTMENT OF LABORATORY MEDICINE RBC/HPF >30(A) 0 - 2 /HPF 02/05/2025 3:24 PM [facility] DEPARTMENT OF LABORATORY MEDICINE WBC/HPF 3-5 0 - 5 /HPF 02/05/2025 3:24 PM EST [facility] DEPARTMENT OF LABORATORY MEDICINE Bacteria, UA Rare None-Rare /HPF 02/05/2025 3:24 PM EST [facility] DEPARTMENT OF LABORATORY MEDICINE Urine Squamous Epithelial Cells, UA Few None-Few /HPF 02/05/2025 3:24 PM EST [facility] DEPARTMENT OF LABORATORY MEDICINE Trans Epithelial Cells, UA Rare(A) None /HPF 02/05/2025 3:24 PM EST [facility] DEPARTMENT OF LABORATORY MEDICINE Ca Oxalate Maria T, UA Rare(A) None /HPF 02/05/2025 3:24 PM EST [facility] DEPARTMENT OF LABORATORY MEDICINE RBC/HPF, UA 02/05/2025 3:24 PM EST [facility] DEPARTMENT OF LABORATORY MEDICINE WBC/HPF, UA 02/05/2025 3:24 PM EST [facility] DEPARTMENT OF LABORATORY MEDICINE Urine Collection / Unknown 02/05/2025 12:52 PM EST 02/05/2025 1:42 PM EST Uriel Kaplan MD URINE ORDERABLES Final Resul t Performing Organization Address [facility] Co de Phone Number [facility] DEPARTMENT OF LABORATORY MEDICINE [address] [place] [address] * Cardiac Misc.?? Result Scan (02/05/2025 12:00 AM EST) us Provider Not In System CV CARDIAC REPORT (CVR) F inal Result * GALA by IFA w/rflx to dsDNA, PHYSICAL THERAPIST, SM, SSA, and SSB Abs (LMW YH) (02/03/2025 5:02 AM EST) GALA <1:80 <1:80 (Negative ) 02/03/2025 3:20 PM EST [facility] DEPARTMENT OF LABORATORY MEDICINE Comment: Specimen tested using a HEp-2 indirect immunofluorescent assay. Effective November 18, 2023, GALA testing will be performed on the getbetter! IFA platform. Please note; previous results may not directly correlate due to method change. Blood Venipuncture / Unknown 02/03/2025 5:02 AM EST 02/03/2025 6:01 AM EST Uriel Kaplan MD LAB BLOOD ORDERABLES Final R esult Performing Organization Address City/[facility]/ZIP Co de Phone Number [facility] DEPARTMENT OF LABORATORY MEDICINE [address] [place] [address] * Urine culture (02/02/2025 9:36 PM EST) Urine Culture, Routine Less than 10,000 CFU/mL. Clinical significance is unlikely for organism(s) present in quantities of less than 10,000 CFU/mL. 02/03/2025 6:01 PM EST [facility] DEPARTMENT OF LABORATORY MEDICINE Urine URINE SPECIMEN OBTAINED BY CLEAN CATCH PROCEDURE / Unknown Collection / Unknown 02/02/2025 9:36 PM EST 02/02/2025 9:57 PM EST Narrative [facility] DEPARTMENT OF LABORATORY MEDICINE - 02/03/2025 6:01 PM EST Culture, organism identification, and/or susceptibility results may have been generated with a non-FDA approved method. All methods used in this report have been validated by [facility] Microbiology for clinical use. Manjinder Maguire MD MICROBIOLOGY - [facility] Final Result [facility] DEPARTMENT OF LABORATORY MEDICINE [address] [place] [address] * NR FL Less Than 1 Hour Exam (02/02/2025 1:48 PM EST) Narrative [facility] - 02/02/2025 1:49 PM EST DISCLAIMER This procedure captures images only. There is no report. 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 Report initiated by: Dick Madrigal MD Reported and signed by: Ana M Moreira MD [facility] Narrative 02/01/2025 3:40 PM EST MRI CHEST W WO IV CONTRAST Date: 02/01/2025 2:01 PM INDICATION: 39F PMH Graves evaluation for anterior mediastinal mass premedication per primary team COMPARISON: Outside facility CT chest, abdomen, and pelvis dated 01/26/2025 viewed on Guidekick. TECHNIQUE: Multiplanar, multisequence MR imaging of the [...] It demonstrates loss of signal intensity on gpr-ox-[id number] imaging with signal intensity index of 11.6%. [...] CONTRAST Date: 02/01/2025 2:01 PM INDICATION: 39F H Graves evaluation for anterior mediastinal mass premedication per primary team COMPARISON: Outside facility CT chest, abdomen, and pelvis dated103/28/2024 viewed on Guidekick. TECHNIQUE: Multiplanar, multisequence MR imaging of the chest wasperformed before and after administration of IV contrast. . 14 mLgadoterate meglumine (DOTAREM) 0.5 mmol/mL (376.9 mg/mL) injection wasintravenously administered. Postprocessed subtraction images are alsoincluded. FINDINGS: Mediastinum: Pyramidal-shaped anterior mediastinal mass demonstratingisointense signal on the T1-weighted precontrast images, intermediatebright signal on the T2-weighted and T2 weighted fat saturation images. Itdemonstrates loss of signal intensity on awa-sy-[id number] imaging with signalintensity index of 11.6%. Post [...] and signed by: Ana M Moreira MD [facility] Marie Woodson MD IMG MRI ORDERABLES Final Result * Prealbumin (02/01/2025 6:23 AM EST) Prealbumin 23.0 20.0 - 40.0 mg/dL 02/01/2025 8:04 AM EST [facility] DEPARTMENT OF LABORATORY MEDICINE Blood Venipuncture / Unknown 02/01/2025 6:23 AM EST 02/01/2025 7:34 AM EST Manjinder Maguire MD LAB BLOOD ORDERABLES Final Result Performing Organization Address City/[facility] Co de Phone Number [facility] DEPARTMENT OF LABORATORY MEDICINE [address] [place] [address] * Albumin (02/01/2025 6:23 AM EST) Albumin 3.8 3.6 - 5.1 g/dL 02/01/2025 7:23 AM EST [facility] DEPARTMENT OF LABORATORY MEDICINE Blood Venipuncture / Unknown 02/01/2025 6:23 AM EST 02/01/2025 6:56 AM EST Manjinder Maguire MD LAB BLOOD ORDERABLES Final Result [facility] DEPARTMENT OF LABORATORY MEDICINE [address] [place] [id number], [facility] [phone] * US Renal (02/01/2025 2:17 AM EST) [...] above. The bilateral ureteral jets are visualized. [facility] Radiology Notify System Classification: Routine. Report initiated by: Tariq Zee MD Reported and signed by: Jr Cosby MD [facility] Narrative 02/01/2025 5:09 AM EST US RENAL. HISTORY: 39F known b/l calculi, evaluate for movement of stones into ureter on R. COMPARISON: CT chest abdomen pelvis dated 01/26/2025 performed at an outside institution, images available on Arkadin. TECHNIQUE: Grayscale and color Doppler imaging were [...] chest abdomen pelvis dated 01/26/2025 performed at [facility], images available on LARRY. TECHNIQUE: Grayscale and color Doppler imaging were performed. FINDINGS: RIGHT KIDNEY: Size: 13.9 in maximal sagittal dimension. 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 Thereis evidence of scarring and partial rotational anomaly of the lower polemoiety. Two renal calculi are seen within the lower pole moiety [id number] and 8 mm, which are seen on [...] described above. The bilateral ureteral jets arevisualized. [facility] Radiology Notify System Classification: Routine. Report initiated by: Tariq Zee MD Reported and signed by: Jr Cosby MD [facility] us Marie Woodson MD [facility] US ORDERABLES Final Result * POCT urine (02/01/2025 1:02 AM EST) Preg Test, Ur, POC Negative Negative [facility] Line in Control Window? (+ Control) Yes [facility] Background Clear? (- Control) Yes [facility] Kit Lot Number [id number] [facility] Expiration Date 04/29/2026 [facility] Urine URINE SPECIMEN / Unknown 02/01/2025 1:02 AM EST us Marie Woodson MD POINT OF CARE TEST ORDERABLES F inal Result [facility] [place], [facility] * (ABNORMAL) Urine macroscopic (02/01/2025 12:09 AM EST) Clarity, UA Cloudy(A) Clear 02/01/2025 12:28 AM [facility] DEPARTMENT OF LABORATORY MEDICINE Color, UA Yellow Yellow, Colorless 02/01/2025 12:28 AM [facility] DEPARTMENT OF LABORATORY MEDICINE Specific [place], UA 1.023 1.005 - 1.030 02/01/2025 12:28 AM [facility] DEPARTMENT OF LABORATORY MEDICINE pH, UA 5.5 5.5 - 7.5 02/01/2025 12:28 AM [facility] DEPARTMENT OF LABORATORY MEDICINE Protein, UA 1+(A) Negative, Trace 02/01/2025 12:28 AM [facility] DEPARTMENT OF LABORATORY MEDICINE Glucose, UA Negative Negative 02/01/2025 12:28 AM [facility] DEPARTMENT OF LABORATORY MEDICINE Ketones, UA Negative Negative 02/01/2025 12:28 AM [facility] DEPARTMENT OF LABORATORY MEDICINE Blood, UA 1+(A) Negative 02/01/2025 12:28 AM [facility] DEPARTMENT OF LABORATORY MEDICINE Bilirubin, UA Negative Negative 02/01/2025 12:28 AM [facility] DEPARTMENT OF LABORATORY MEDICINE Leukocytes, UA 2+(A) Negative 02/01/2025 12:28 AM [facility] DEPARTMENT OF LABORATORY MEDICINE Nitrite, UA Negative Negative 02/01/2025 12:28 AM EST [facility] DEPARTMENT OF LABORATORY MEDICINE Urobilinogen, UA <2.0 <=2.0 mg/dL 02/01/2025 12:28 AM EST [facility] DEPARTMENT OF LABORATORY MEDICINE Urine Collection / Unknown 02/01/2025 12:09 AM EST 02/01/2025 12:24 AM EST us Marie Woodson MD URINE ORDERABLES Final Result Performing Organization Address [facility] Co de Phone Number [facility] DEPARTMENT OF LABORATORY MEDICINE [address] [place] [address] * (ABNORMAL) TSH w/reflex to FT4 (01/31/2025 11:19 PM EST) Thyroid Stimulating Hormone <0.005(L) See Comment IU/mL 02/01/2025 12:55 AM EST [facility] DEPARTMENT OF LABORATORY MEDICINE Comment: Male & Non- Females: 0.270-4.200 IU/mL 1st Trimester: 0.110-3.480 IU/mL 2nd Trimester: 0.320-3.850 IU/mL Blood Venipuncture / Unknown 01/31/2025 11:19 PM EST 01/31/2025 11:59 PM EST us Marie Woodson MD LAB BLOOD ORDERABLES Final Resu lt Performing Organization Address [facility]/ZIP Co de Phone Number [facility] DEPARTMENT OF LABORATORY MEDICINE [address] [place] [address] * hCG, quantitative (01/31/2025 11:19 PM EST) hCG, Quantitative <1 See Comment mIU/mL 02/01/2025 12:54 AM EST [facility] DEPARTMENT OF LABORATORY MEDICINE Comment: Males and non females: <5 mIU/mL females: 1st week of gestation: 5-50 mIU/mL Levels double every 1.5-2 days in early first trimester Peak: 300,000 mIU/mL in late first trimester Effective 12/25/2018 the Clinical Chemistry lab at [facility] has switched to a new Total hCG assay with improved detection for various hCG forms to aid in detection of various disease conditions like ectopic , choriocarcinoma, testicular cancer, trophoblastic diseases, and nontrophoblastic tumors. Blood Venipuncture / Unknown 01/31/2025 11:19 PM EST 01/31/2025 11:59 PM EST us Marie Woodson MD LAB BLOOD ORDERABLES Final Resu lt Performing Organization Address City/[facility] Co de Phone Number [facility] DEPARTMENT OF LABORATORY MEDICINE [address] [place] [address] * EKG (01/31/2025 8:19 PM EST) Heart Rate 105 bpm [facility] EKG QRS Interval 77 ms [facility] EKG QT Interval 331 ms [facility] EKG QTC Interval 439 ms [facility] EKG P [place] 29 deg [facility] EKG QRS [place] 37 deg [facility] EKG T Wave [place] 57 deg [facility] EKG P-R Interval 129 msec [facility] EKG SEVERITY Borderline ECG severity [facility] EKG Comment::Sinus tachycardia:C onsider left ventricular hypertrophy:Electronically Signed On 02-01-2025 2:27:04 EST by Marie Woodson MD OTHER / Unknown 01/31/2025 8 :19 PM EST us Miguel Christianson MD ECG ORDERABLES Final Result Performing Organization Address [facility] Co de Phone Number [facility] EKG from Last 3 Months Insurance [facility] HEALTHCARE Advance Directives * Full Code (Latest Code Status on File) Date Activated Date Inactivated Comments 02/01/2025 5:33 AM 02/08/2025 11:45 PM Care Teams Clinical Product Specialist Relationship Specialty Start Date End Date [address] [address] PCP - General 01/31/25
--- OUTSIDE RECORDS SUMMARY | 2025-02-13 17:42 | XMS_ITS | Encounter Summary ---
Author Organization [facility] Address [address] [facility] [address] [place] [address] Phone Care Team Providers Care Contract Sheltered Workshop Supervisor Name Role Phone Pcp, Not Required Primary Care Provider Unavaila ble Encounter Details Date Type Department Care Team ([facility] st Contact Info) Description 11/12/2024 Procedure Pass OR Admitting Dept - Virtual Department [address] [place] [address] Social History Tobacco Use Types Packs/Day Years [...] Description 02/17/2025 10:00 AM EST Office Visit [facility] [address] [place] [address] Nikita Mireles PA-C [address] [place] [address] [place] [address] [email or web address] Karyna Aguirre, PT [address] [place] [address] 02/19/2025 1:00 PM EST Office Visit [facility] [address] [place] [address] Nikita Mireles PA-C [address] [place] [address] [place] [address] [email or web address] Karyna Agiurre, PT [address] [place] [address] [email or web address] 02/22/2025 10:00 AM EST Office Visit [facility] [address] [place] [address] Nikita Mireles PA-C [address] [place] [address] [place] [address] [email or web address] Karyna Aguirre, PT [address] [place] [address] [email or web address] 02/24/2025 10:45 AM EST Office Visit [address] [place] [address] Nikita Mireles PA-C [address] [place] [address] [place] [address] [email or web address] Karyna Aguirre, PT [address] [place] [address] [email or web address] 03/02/2025 2:00 PM EST Office Visit [facility] [address] [place] [address] [place] [address] Nikita Mireles PA-C [address] [place] [address] [place] [address] [email or web address] documented as of this encounter Visit Diagnoses Not on filedocumented in this encounter Care Teams Contract Sheltered Workshop Supervisor Relationship Specialty Start Date End Date Pcp, Not Required PCP - General 11/09/15 documented as of this encounter Additional Source Comments The information contained in this document represents components of the legal health record. It is not the complete legal health record.[facility]
--- OUTSIDE RECORDS SUMMARY | 2025-02-13 17:43 | XMS_ITS | Encounter Summary ---
Author Organization [facility] Address [address] [address] Phone Care Team Providers Care Decorating Instructor Name Role Phone Pcp, Not Required Primary Care Provider Unavaila ble Encounter Details Date Type Department Care Team (Late st Contact Info) Description 11/22/2023 Procedure Pass [facility], Ct Scan - [address] [address] Social History Tobacco Use Types Packs/Day Years [...] 10:32 PM EDT Franchesca Parikh RN * [place] Suicide Severity Rating Scale (Screener/Recent Self-Report) Question [...] Description 02/17/2025 10:00 AM EST Office Visit [address] [place] [address] Nikita Mireles PA-C [address] [place] [address] [place] [address] Karyna Aguirre, PT [address] [place] [address] 02/19/2025 1:00 PM EST Office Visit [address] [place] [address] Nikita Mireles PA-C [address] [place] [address] [place] [address] Karyna Aguirre, PT [address] [place] [address] [email or web address] 02/22/2025 10:00 AM EST Office Visit [facility] [address] [place] [address] Nikita Mireles PA-C [address] [place] [address] [place] [address] [email or web address] Karyna Aguirre, PT [address] [place] [address] [email or web address] 02/24/2025 10:45 AM EST Office Visit [facility] [address] [place] [address] Nikita Mireles PA-C [address] [place] [address] [place] [address] [email or web address] Karyna Aguirre, PT [address] [place] [address] [email or web address] 03/02/2025 2:00 PM EST Office Visit [facility]oped[facility] & Sports Medicine [address] [place] [address] [place] [address] Nikita Mireles PA-C [address] [place] [address] [place] [address] [email or web address] documented as of this encounter Visit Diagnoses Not on filedocumented in this encounter Additional Health Concerns Infection Onset Date Last Indicated Resolved Time CoV-Risk 06/18/2024 06/18/2024 06/29/2024 1:23 AM EDT documented as of this encounter Care Teams Decorating Instructor Relationship Specialty Start Date End Date Pcp, Not Required PCP - General 11/09/15 documented as of this encounter Additional Source Comments The information contained in this document represents components of the legal health record. It is not the complete legal health record.[facility]
--- OUTSIDE RECORDS SUMMARY | 2025-02-13 17:43 | XMS_ITS | Encounter Summary ---
Author Organization [facility] Address [address] [place] [address] Phone Care Team Providers Care Order Dispatcher Name Role Phone Pcp, Not Required Primary Care Provider Unavaila ble Reason for Visit * Reason Onset Date Comments Appointment 02/10/2025 Encounter Details Date Type Department Care Team (Late st Contact Info) Description 02/10/2025 Telephone [facility] [address] [place] [address] Karyna Aguirre, PT [address] [place] [address] [email or web address] Appointment Social History Tobacco Use Types Packs/Day [...] unable tomake it in. Karyna Aguirre, [place] [id number] documented in this encounter Plan of Treatment Upcoming Encounters Date Type Department Care Team (Late st Contact Info) Description 02/17/2025 10:00 AM EST Office Visit [address] [place] [address] Nikita Mireles PA-C [address] [place] [address] [place] [address] Karyna Aguirre, PT [address] [place] [address] 02/19/2025 1:00 PM EST Office Visit [address] [place] [address] Nikita Mireles PA-C [address] [place] [address] [place] [address] Karyna Aguirre, PT [address] [place] [address] 02/22/2025 10:00 AM EST Office Visit [address] [place] [address] Nikita Mireles PA-C [address] [place] [address] [place] [address] Karyna Aguirre, PT [address] [place] [address] 02/24/2025 10:45 AM EST Office Visit [facility] [address] [place] [address] Nikita Mireles PA-C [address] [place] [address] [place] [address] Karyna Aguirre, PT [address] [place] [address] 03/02/2025 2:00 PM EST Office Visit [facility] [address] [place] [address] [place] [address] Nikita Mireles PA-C [address] [place] [address] [place] [address] [email or web address] documented as of this encounter Visit Diagnoses Not on filedocumented in this encounter Care Teams Order Dispatcher Relationship Specialty Start Date End Date Pcp, Not Required PCP - General 11/09/15 documented as of this encounter Additional Source Comments The information contained in this document represents components of the legal health record. It is not the complete legal health record[facility]
--- OUTSIDE RECORDS SUMMARY | 2025-02-13 17:43 | XMS_ITS | Clinical Summary ---
Author Organization [facility] Address [address] [place] [address] Care Team Providers Care Insurance Sales Specialist Name Role Phone Unavailable Primary Care Provider Unavailabl e Allergies Active Allergy Reactions Criticality Noted Date Comments Ceftriaxone Hives Medium 01/20/2025 Iodine Hives Medium 01/20/2025 Medications ALPRAZolam (XANAX) 0.25 MG tabletIndication s:Anxiety Take 1 tablet (0.25 mg total) by mouth 3 times daily (every 8 hours) as needed for anxiety. 30 tablet 02/01/20 25 025 Active multivitamin with minerals Tab tabletIndication s:Moderate malnutrition Take 1 tablet by mouth daily. 30 tablet 02/01/20 25 025 Active propranolol (INDERAL) 40 MG tabletIndication s:Hyperthyroidis m Take 1 tablet (40 mg total) by mouth every 8 (eight) hours around the clock. 90 tablet 02/01/20 25 025 Active propylthiouracil 50 MG tabletIndication s:Hyperthyroidis m Take 2 tablets (100 mg total) by mouth 3 (three) times a day. 180 tablet 02/01/20 25 025 Active ALPRAZolam (XANAX) 0.25 MG tabletIndication s:Anxiety Take 1 tablet (0.25 mg total) by mouth 3 times daily (every 8 hours) as needed for anxiety. 30 tablet 01/31/20 25 025 Discontinued multivitamin with minerals Tab tabletIndication s:Moderate malnutrition Take 1 tablet by mouth daily. 30 tablet 02/01/20 25 025 Discontinued propranolol (INDERAL) 40 MG tabletIndication s:Hyperthyroidis m Take 1 tablet (40 mg total) by mouth every 8 (eight) hours around the clock. 90 tablet 01/31/20 25 025 Discontinued propylthiouracil 50 MG tabletIndication s:Hyperthyroidis m Take 2 tablets (100 mg total) by mouth 3 (three) times a day. 180 tablet 01/31/20 25 025 Discontinued ALPRAZolam (XANAX) 0.25 MG tabletIndication s:Anxiety Take 1 tablet (0.25 mg total) by mouth 3 times daily (every 8 hours) as needed for anxiety. 30 tablet 01/31/20 25 025 Discontinued multivitamin with minerals Tab tabletIndication s:Moderate malnutrition Take 1 tablet by mouth daily. Do not start before January 31, 2025. 30 tablet 02/01/20 25 025 Discontinued propranolol (INDERAL) 40 MG tabletIndication s:Hyperthyroidis m Take 1 tablet (40 mg total) by mouth every 8 (eight) hours around the clock. 90 tablet 01/31/20 25 025 Discontinued propylthiouracil 50 MG tabletIndication s:Hyperthyroidis m Take 2 tablets (100 mg total) by mouth 3 (three) times a day. 180 tablet 01/31/20 25 025 Discontinued ALPRAZolam (XANAX) 0.25 MG tabletIndication s:Anxiety Take 1 tablet (0.25 mg total) by mouth 3 times daily (every 8 hours) as needed for anxiety. 30 tablet 01/31/20 25 025 Discontinued multivitamin with minerals Tab tabletIndication s:Moderate malnutrition Take 1 tablet by mouth daily. Do not start before January 31, 2025. 30 tablet 02/01/20 25 025 Discontinued propranolol (INDERAL) 40 MG tabletIndication s:Hyperthyroidis m Take 1 tablet (40 mg total) by mouth every 8 (eight) hours around the clock. 90 tablet 01/31/20 25 025 Discontinued propylthiouracil 50 MG tabletIndication s:Hyperthyroidis m Take 2 tablets (100 mg total) by mouth 3 (three) times a day. 180 tablet 01/31/20 25 025 Discontinued Active Problems Problem Noted Date Diagnosed Date Moderate malnutrition: less than 75% intake compared to estimated needs for greater than 7 days, mild muscle loss(pectoralis major, interosseous), mild fat loss(orbital, buccal) 01/28/2025 Assessment & Plan (01/29/2025 5:05 PM EST): Nutrition following. Patient with moderate malnutrition. Added supplements as well as multivitamin with minerals. Assessment & Plan (01/28/2025 9:58 AM EST): Nutrition following. Patient with moderate malnutrition. Added supplements as well as multivitamin with minerals. Mediastinal mass 01/27/2025 Assessment & Plan (01/29/2025 5:05 PM EST): Endocrinology following, inputs appreciated. Patient with hyperthyroidism secondary to Graves' disease Propylthiouracil was increased to 100 mg 3 times daily- will continue Cholestyramine increased to 4 mg 4 times daily(sodium from other medication for 2 hours) Free T4 daily. Intermittent LFTs Plasma metanephrines, total T3 in process. Will need to repeat CT chest in 3 months. 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 Oncology consulted. MRI chest awaited- will need anxiety meds for mri. LDH is only mildly elevated with normal. F/u peripheral blood flow cytometry, GALA, hepatitis panel and HIV. Patient also has family history of thyroid cancer in her mother and is requesting biopsy at this time- given risk of thyroid storm- would be high risk to proceed with biopsy at this time- discussed with the pt and is agreeable to wait until repeat imaging in 3 months. Will need endocrinology follow-up outpatient. Per endocrinology, patient will enefit from definitive therapy (total thyroidectomy vs FARRAR) once euthyroid given overall resistant hyperthyroidism. Assessment & Plan (01/28/2025 3:27 PM EST): Endocrinology following, inputs appreciated. Patient with hyperthyroidism secondary to Graves' disease Propylthiouracil was increased to 100 mg 3 times daily- will continue Cholestyramine increased to 4 mg 4 times daily(sodium from other medication for 2 hours) Free T4 daily. Intermittent LFTs Plasma metanephrines, total T3 in process. Will need to repeat CT chest in 3 months. 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 Oncology consulted. MRI chest awaited- will need anxiety meds for mri. LDH is only mildly elevated with normal. F/u peripheral blood flow cytometry, GALA, hepatitis panel and HIV. Patient also has family history of thyroid cancer in her mother and is requesting biopsy at this time- given risk of thyroid storm- would be high risk to proceed with biopsy at this time- discussed with the pt and is agreeable to wait until repeat imaging in 3 months. Updated IR. Assessment & Plan (01/27/2025 6:42 PM EST): Oncology consulted Differential includes but not limited to lymphoma, thymoma and thymic carcinoma as well as other reactive disorder. Recommended MRI chest with and without contrast Also recommended IR for biopsy- consulted. F/u LDH, uric acid, peripheral blood flow cytometry, GALA, hepatitis panel and HIV. Persistent hyperplasia of thymus 01/26/2025 Assessment & Plan (01/29/2025 5:05 PM EST): Endocrinology following, inputs appreciated. Patient with hyperthyroidism secondary to Graves' disease Propylthiouracil was increased to 100 mg 3 times daily- will continue Cholestyramine increased to 4 mg 4 times daily(sodium from other medication for 2 hours) Free T4 daily. Intermittent LFTs Plasma metanephrines, total T3 in process. Will need to repeat CT chest in 3 months. 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 Oncology consulted. MRI chest awaited- will need anxiety meds for mri. LDH is only mildly elevated with normal. F/u peripheral blood flow cytometry, GALA, hepatitis panel and HIV. Patient also has family history of thyroid cancer in her mother and is requesting biopsy at this time- given risk of thyroid storm- would be high risk to proceed with biopsy at this time- discussed with the pt and is agreeable to wait until repeat imaging in 3 months. Will need endocrinology follow-up outpatient. Per endocrinology, patient will enefit from definitive therapy (total thyroidectomy vs FARRAR) once euthyroid given overall resistant hyperthyroidism. Assessment & Plan (01/28/2025 3:27 PM EST): Endocrinology following, inputs appreciated. Patient with hyperthyroidism secondary to Graves' disease Propylthiouracil was increased to 100 mg 3 times daily- will continue Cholestyramine increased to 4 mg 4 times daily(sodium from other medication for 2 hours) Free T4 daily. Intermittent LFTs Plasma metanephrines, total T3 in process. Will need to repeat CT chest in 3 months. 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 Oncology consulted. MRI chest awaited- will need anxiety meds for mri. LDH is only mildly elevated with normal. F/u peripheral blood flow cytometry, GALA, hepatitis panel and HIV. Patient also has family history of thyroid cancer in her mother and is requesting biopsy at this time- given risk of thyroid storm- would be high risk to proceed with biopsy at this time- discussed with the pt and is agreeable to wait until repeat imaging in 3 months. Updated IR. Assessment & Plan (01/27/2025 6:42 PM EST): Endocrinology following, inputs appreciated. Patient with hyperthyroidism secondary to Graves' disease Increasing propylthiouracil to 100 mg 3 times daily Cholestyramine increased to 4 mg 4 times daily(sodium from other medication for 2 hours) Free T4 daily. Intermittent LFTs Plasma metanephrines, total T3 in process. Will need to repeat CT chest in 3 months. 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 Elevated TBII. Ultrasound thyroid with heterogeneous thyroid gland with increased vascularity . Her hypothyroidism has been difficult to treat. It is not appropriately declining despite high-dose methimazole and adjunctive treatment with cholestyramine. Continue PTU 50 mg q6hr (switched from methimazole on 01/25) to provide additional inhibition of peripheral T4-T3 conversion Continue propranolol at current dose. Continue cholestyramine 4 g twice daily. Check plasma metanephrines given episodic hypertension/anxiety/palpitation to rule out pheochromocytoma. Per endocrinology, previously low cortisol levels could be related to hydrocortisone dose received at outside hospital. Repeat a.m. cortisol levels are normal. Continue to hold hydrocortisone. Repeat CT C/A/P shows anterior mediastinal mass concerning for abnormal thymic tissues w/ significant enlargement. - I suspect this to be related to her hyperthyroidism d/t excess thyroid hormone and autoimmune mechanisms, particularly the action of thyrotropin receptor antibodies (TRAb) on thymic tissue. Will request oncology evaluation. Anxiety She has intermittent episodes of severe anxiety/palpitations with prominent generalized tremors. While it is true that her hyperthyroidism could be playing a role here but underlying anxiety disorder cannot be ruled out. Endocrinology also voiced a concern if there could be some elements of somatization. There is also question of possible pheochromocytoma. I have requested psychiatry team to evaluate via [facility] text. Yet to hear form them. For now, she is continued on alprazolam every 8 hour as needed if she is able to tolerate p.o. or Valium 2.5 mg every 6 hours as needed for debilitating anxiety. She responded that Atarax did not help, which has been discontinued. UTI (urinary tract infection) 01/25/2025 Assessment & Plan (01/29/2025 5:05 PM EST): Urinalysis was positive and was initially started on levofloxacin for concern of UTI, ID was consulted. Urine cultures negative. no concern of UTI and antibiotics discontinued. Repeat CT imaging w/ stable nonobstructive left sided calculi. She was also evaluated by urology who did not have any inpatient plans currently for stent. She can follow-up outpatient with urologist. Assessment & Plan (01/28/2025 9:58 AM EST): Urinalysis was positive and was initially started on levofloxacin for concern of UTI, ID was consulted. Urine cultures negative. no concern of UTI and antibiotics discontinued. Repeat CT imaging w/ stable nonobstructive left sided calculi. She was also evaluated by urology who did not have any inpatient plans currently for stent. She can follow-up outpatient with urologist. Assessment & Plan (01/27/2025 6:42 PM EST): Urinalysis was positive and was initially started on levofloxacin for concern of UTI, ID was consulted. Urine cultures negative. no concern of UTI and antibiotics discontinued. Repeat CT imaging w/ stable nonobstructive left sided calculi. She was also evaluated by urology who did not have any inpatient plans currently for stent. She can follow-up outpatient with urologist. Assessment & Plan (01/26/2025 7:18 PM EST): Urinalysis with bacteriuria, positive leukocyte esterase and negative nitrite. Given patient's symptoms of flank pain, dysuria -she was started on IV levofloxacin. Allergies noted to Rocephin. I requested infectious disease evaluation given concerns for complicated UTI due to her existing issues with renal stones and hydronephrosis. Recommendations appreciated -follow-up culture. Antibiotics discontinued at this time. Repeat CT imaging w/ stable nonobstructive left sided calculi. She was also evaluated by urology who did not have any inpatient plans currently for stent. Assessment & Plan (01/25/2025 7:11 PM EST): Urinalysis with bacteriuria, positive leukocyte esterase and negative nitrite. Some hematuria. Given patient's symptoms of flank pain, dysuria -treating this with IV levofloxacin. Allergies noted to Rocephin. Last QTc was normal. Question of adrenal insufficiency 01/23/2025 Assessment & Plan (01/29/2025 5:05 PM EST): Endocrinology following, inputs appreciated. Patient with hyperthyroidism secondary to Graves' disease Propylthiouracil was increased to 100 mg 3 times daily- will continue Cholestyramine increased to 4 mg 4 times daily(sodium from other medication for 2 hours) Free T4 daily. Intermittent LFTs Plasma metanephrines, total T3 in process. Will need to repeat CT chest in 3 months. 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 Oncology consulted. MRI chest awaited- will need anxiety meds for mri. LDH is only mildly elevated with normal. F/u peripheral blood flow cytometry, GALA, hepatitis panel and HIV. Patient also has family history of thyroid cancer in her mother and is requesting biopsy at this time- given risk of thyroid storm- would be high risk to proceed with biopsy at this time- discussed with the pt and is agreeable to wait until repeat imaging in 3 months. Will need endocrinology follow-up outpatient. Per endocrinology, patient will enefit from definitive therapy (total thyroidectomy vs FARRAR) once euthyroid given overall resistant hyperthyroidism. Assessment & Plan (01/28/2025 3:27 PM EST): Endocrinology following, inputs appreciated. Patient with hyperthyroidism secondary to Graves' disease Propylthiouracil was increased to 100 mg 3 times daily- will continue Cholestyramine increased to 4 mg 4 times daily(sodium from other medication for 2 hours) Free T4 daily. Intermittent LFTs Plasma metanephrines, total T3 in process. Will need to repeat CT chest in 3 months. 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 Oncology consulted. MRI chest awaited- will need anxiety meds for mri. LDH is only mildly elevated with normal. F/u peripheral blood flow cytometry, GALA, hepatitis panel and HIV. Patient also has family history of thyroid cancer in her mother and is requesting biopsy at this time- given risk of thyroid storm- would be high risk to proceed with biopsy at this time- discussed with the pt and is agreeable to wait until repeat imaging in 3 months. Updated IR. Assessment & Plan (01/27/2025 6:42 PM EST): Endocrinology following, inputs appreciated. Patient with hyperthyroidism secondary to Graves' disease Increasing propylthiouracil to 100 mg 3 times daily Cholestyramine increased to 4 mg 4 times daily(sodium from other medication for 2 hours) Free T4 daily. Intermittent LFTs Plasma metanephrines, total T3 in process. Will need to repeat CT chest in 3 months. 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 Elevated TBII. Ultrasound thyroid with heterogeneous thyroid gland with increased vascularity . Her hypothyroidism has been difficult to treat. It is not appropriately declining despite high-dose methimazole and adjunctive treatment with cholestyramine. Continue PTU 50 mg q6hr (switched from methimazole on 01/25) to provide additional inhibition of peripheral T4-T3 conversion Continue propranolol at current dose. Continue cholestyramine 4 g twice daily. Check plasma metanephrines given episodic hypertension/anxiety/palpitation to rule out pheochromocytoma. Per endocrinology, previously low cortisol levels could be related to hydrocortisone dose received at outside hospital. Repeat a.m. cortisol levels are normal. Continue to hold hydrocortisone. Repeat CT C/A/P shows anterior mediastinal mass concerning for abnormal thymic tissues w/ significant enlargement. - I suspect this to be related to her hyperthyroidism d/t excess thyroid hormone and autoimmune mechanisms, particularly the action of thyrotropin receptor antibodies (TRAb) on thymic tissue. Will request oncology evaluation. Anxiety She has intermittent episodes of severe anxiety/palpitations with prominent generalized tremors. While it is true that her hyperthyroidism could be playing a role here but underlying anxiety disorder cannot be ruled out. Endocrinology also voiced a concern if there could be some elements of somatization. There is also question of possible pheochromocytoma. I have requested psychiatry team to evaluate via [facility] text. Yet to hear form them. For now, she is continued on alprazolam every 8 hour as needed if she is able to tolerate p.o. or Valium 2.5 mg every 6 hours as needed for debilitating anxiety. She responded that Atarax did not help, which has been discontinued. 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 Elevated TBII. Ultrasound thyroid with heterogeneous thyroid gland with increased vascularity . Her hypothyroidism has been difficult to treat. It is not appropriately declining despite high-dose methimazole and adjunctive treatment with cholestyramine. She's been switched to PTU 50 mg q6hr to provide additional inhibition of peripheral T4-T3 conversion Given episodes of hypertension, hydrocortisone is held. Plan to repeat a.m. cortisol. if the patient becomes hypotensive or hemodynamically unstable, initiate stress- dose steroids with hydrocortisone 100 mg IV bolus, then 50 mg IV every 8 hours. Discussed with endocrinology. Pheochromocytoma is less likely given normal- appearing adrenal glands. Paraganglioma cannot be easily ruled out. Plasma fractionated metanephrines ordered. Resumed propranolol. Also, somatization remains a consideration, as patient is highly anxious with prominent generalized tremor. Continue to monitor daily free T4. Also unsure if underlying infection is driving or contributing to her picture. Ordered blood cultures, urinalysis/culture, Assessment & Plan (01/24/2025 3:23 PM EST): Possibility of underlying autoimmune polyglandular syndrome, type II Patient with severe hypothyroidism, free T4 today is better at 6.72. Endocrinology following. Appreciate recommendations. Unclear etiology. She has no history of amiodarone use. No signs of Graves' disease or ophthalmopathy. Her ESR/CRP have been normal. Patient was started on methimazole, which is now increased to 30 mg 3 times daily. She is also on cholestyramine as an adjunct for treatment of hyperthyroidism Propranolol is held given softer BP and suspicions for adrenal insufficiency Serum cortisol level is low on 2 occasions. She is given hydrocortisone stress dose 100 mg x 1, and started on 25 mg twice daily. Given persistent dizziness and softer blood pressure, it is increased to 50 mg 3 times daily. With improvement in blood pressure, hydrocortisone has been decreased to 25G 3 times daily. Follow-up on ultrasound thyroid. Follow-up on ACTH, TSI, TBII, [id number] antibody Daily free T4 Assessment & Plan (01/23/2025 4:42 PM EST): Possibility of underlying autoimmune polyglandular syndrome, type II Patient with severe hypothyroidism, with free T4 today again greater than 7.77 which is upper limit of what is measured by the lab. Endocrinology following. Appreciate recommendations. Unclear etiology. She has no history of amiodarone use. No signs of Graves' disease or ophthalmopathy. Her ESR/CRP have been normal. Patient was started on methimazole, which is now increased to 30 mg 3 times daily. Propranolol is held given hypotension and suspicions for adrenal insufficiency Serum cortisol level is low on 2 occasions. She is given hydrocortisone stress dose 100 mg x 1, and started on 25 mg twice daily. Given persistent dizziness and softer blood pressure, it is increased to 50 mg 3 times daily. Follow-up on ACTH, TSI, TBII, [id number] antibody Daily free T4 Blurry vision Patient reports dizziness associated with blurry vision. Her CT head was normal. This has not worsened. On examination, she has no diplopia. Extraocular movements remain normal. Will consider ophthalmology consultation should her condition worsen. Hydronephrosis with urinary obstruction due to renal calculus 01/21/2025 Assessment & Plan (01/29/2025 5:05 PM EST): Urinalysis was positive and was initially started on levofloxacin for concern of UTI, ID was consulted. Urine cultures negative. no concern of UTI and antibiotics discontinued. Repeat CT imaging w/ stable nonobstructive left sided calculi. She was also evaluated by urology who did not have any inpatient plans currently for stent. She can follow-up outpatient with urologist. Assessment & Plan (01/28/2025 9:58 AM EST): Urinalysis was positive and was initially started on levofloxacin for concern of UTI, ID was consulted. Urine cultures negative. no concern of UTI and antibiotics discontinued. Repeat CT imaging w/ stable nonobstructive left sided calculi. She was also evaluated by urology who did not have any inpatient plans currently for stent. She can follow-up outpatient with urologist. Assessment & Plan (01/27/2025 6:42 PM EST): Urinalysis was positive and was initially started on levofloxacin for concern of UTI, ID was consulted. Urine cultures negative. no concern of UTI and antibiotics discontinued. Repeat CT imaging w/ stable nonobstructive left sided calculi. She was also evaluated by urology who did not have any inpatient plans currently for stent. She can follow-up outpatient with urologist. Assessment & Plan (01/26/2025 7:18 PM EST): Urinalysis with bacteriuria, positive leukocyte esterase and negative nitrite. Given patient's symptoms of flank pain, dysuria -she was started on IV levofloxacin. Allergies noted to Rocephin. I requested infectious disease evaluation given concerns for complicated UTI due to her existing issues with renal stones and hydronephrosis. Recommendations appreciated -follow-up culture. Antibiotics discontinued at this time. Repeat CT imaging w/ stable nonobstructive left sided calculi. She was also evaluated by urology who did not have any inpatient plans currently for stent. Assessment & Plan (01/25/2025 7:11 PM EST): Urinalysis with bacteriuria, positive leukocyte esterase and negative nitrite. Some hematuria. Given patient's symptoms of flank pain, dysuria -treating this with IV levofloxacin. Allergies noted to Rocephin. Last QTc was normal. Assessment & Plan (01/24/2025 3:23 PM EST): She continues to have pain on right side flank, and has been requiring as needed analgesics including Dilaudid. Per urology, her stones are nonobstructing in nature. No interventions offered currently. Plan to request for reevaluation once her thyroid status is improved for consideration of inpatient stent placement given continued pain. Assessment & Plan (01/23/2025 4:42 PM EST): Evaluated by urology Nonobstructing stones in her kidneys per urology review of the CT images Pain is manageable No interventions offered currently as inpatient. Recommended to follow-up with her primary urologist in [place] or here. Assessment & Plan (01/22/2025 8:54 AM EST): Evaluated by urology. Appreciate recommendations. CT imaging reviewed by them, demonstrates nonobstructing stones in her kidneys. Question of right distal ureteral stone as she has multiple pelvic phleboliths and it is hard to follow her ureter. Currently pain is better controlled. No interventions required as inpatient. She can follow with her primary urologist in [place] or here. Assessment & Plan (01/21/2025 6:53 PM EST): Has history of urolithiasis. Complaints of right sided flank pain for [address] abdomen pelvis revealed obstructing 0.8 cm and 0.7 cm right renal calculi with mild hydronephrosis and moderate hydroureter. Cr normal. Urology reached out for evaluation. N.p.o. midnight for possible procedure in the a.m. Will require endocrinology clearance to determine safety of anesthetic procedure for cystoscopy & stent placement - as it could precipitate thyroid storm & increase the risk of cardiovascular complications in the setting of poorly controlled hyperthyroidism. Hyperthyroidism 01/20/2025 Assessment & Plan (01/29/2025 5:05 PM EST): Endocrinology following, inputs appreciated. Patient with hyperthyroidism secondary to Graves' disease Propylthiouracil was increased to 100 mg 3 times daily- will continue Cholestyramine increased to 4 mg 4 times daily(sodium from other medication for 2 hours) Free T4 daily. Intermittent LFTs Plasma metanephrines, total T3 in process. Will need to repeat CT chest in 3 months. 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 Oncology consulted. MRI chest awaited- will need anxiety meds for mri. LDH is only mildly elevated with normal. F/u peripheral blood flow cytometry, GALA, hepatitis panel and HIV. Patient also has family history of thyroid cancer in her mother and is requesting biopsy at this time- given risk of thyroid storm- would be high risk to proceed with biopsy at this time- discussed with the pt and is agreeable to wait until repeat imaging in 3 months. Will need endocrinology follow-up outpatient. Per endocrinology, patient will enefit from definitive therapy (total thyroidectomy vs FARRAR) once euthyroid given overall resistant hyperthyroidism. Assessment & Plan (01/28/2025 3:27 PM EST): Endocrinology following, inputs appreciated. Patient with hyperthyroidism secondary to Graves' disease Propylthiouracil was increased to 100 mg 3 times daily- will continue Cholestyramine increased to 4 mg 4 times daily(sodium from other medication for 2 hours) Free T4 daily. Intermittent LFTs Plasma metanephrines, total T3 in process. Will need to repeat CT chest in 3 months. 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 Oncology consulted. MRI chest awaited- will need anxiety meds for mri. LDH is only mildly elevated with normal. F/u peripheral blood flow cytometry, GALA, hepatitis panel and HIV. Patient also has family history of thyroid cancer in her mother and is requesting biopsy at this time- given risk of thyroid storm- would be high risk to proceed with biopsy at this time- discussed with the pt and is agreeable to wait until repeat imaging in 3 months. Updated IR. Assessment & Plan (01/27/2025 6:42 PM EST): Endocrinology following, inputs appreciated. Patient with hyperthyroidism secondary to Graves' disease Increasing propylthiouracil to 100 mg 3 times daily Cholestyramine increased to 4 mg 4 times daily(sodium from other medication for 2 hours) Free T4 daily. Intermittent LFTs Plasma metanephrines, total T3 in process. Will need to repeat CT chest in 3 months. 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 Elevated TBII. Ultrasound thyroid with heterogeneous thyroid gland with increased vascularity . Her hypothyroidism has been difficult to treat. It is not appropriately declining despite high-dose methimazole and adjunctive treatment with cholestyramine. Continue PTU 50 mg q6hr (switched from methimazole on 01/25) to provide additional inhibition of peripheral T4-T3 conversion Continue propranolol at current dose. Continue cholestyramine 4 g twice daily. Check plasma metanephrines given episodic hypertension/anxiety/palpitation to rule out pheochromocytoma. Per endocrinology, previously low cortisol levels could be related to hydrocortisone dose received at outside hospital. Repeat a.m. cortisol levels are normal. Continue to hold hydrocortisone. Repeat CT C/A/P shows anterior mediastinal mass concerning for abnormal thymic tissues w/ significant enlargement. - I suspect this to be related to her hyperthyroidism d/t excess thyroid hormone and autoimmune mechanisms, particularly the action of thyrotropin receptor antibodies (TRAb) on thymic tissue. Will request oncology evaluation. Anxiety She has intermittent episodes of severe anxiety/palpitations with prominent generalized tremors. While it is true that her hyperthyroidism could be playing a role here but underlying anxiety disorder cannot be ruled out. Endocrinology also voiced a concern if there could be some elements of somatization. There is also question of possible pheochromocytoma. I have requested psychiatry team to evaluate via [facility] text. Yet to hear form them. For now, she is continued on alprazolam every 8 hour as needed if she is able to tolerate p.o. or Valium 2.5 mg every 6 hours as needed for debilitating anxiety. She responded that Atarax did not help, which has been discontinued. 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 Elevated TBII. Ultrasound thyroid with heterogeneous thyroid gland with increased vascularity . Her hypothyroidism has been difficult to treat. It is not appropriately declining despite high-dose methimazole and adjunctive treatment with cholestyramine. She's been switched to PTU 50 mg q6hr to provide additional inhibition of peripheral T4-T3 conversion Given episodes of hypertension, hydrocortisone is held. Plan to repeat a.m. cortisol. if the patient becomes hypotensive or hemodynamically unstable, initiate stress- dose steroids with hydrocortisone 100 mg IV bolus, then 50 mg IV every 8 hours. Discussed with endocrinology. Pheochromocytoma is less likely given normal- appearing adrenal glands. Paraganglioma cannot be easily ruled out. Plasma fractionated metanephrines ordered. Resumed propranolol. Also, somatization remains a consideration, as patient is highly anxious with prominent generalized tremor. Continue to monitor daily free T4. Also unsure if underlying infection is driving or contributing to her picture. Ordered blood cultures, urinalysis/culture, Assessment & Plan (01/24/2025 3:23 PM EST): Possibility of underlying autoimmune polyglandular syndrome, type II Patient with severe hypothyroidism, free T4 today is better at 6.72. Endocrinology following. Appreciate recommendations. Unclear etiology. She has no history of amiodarone use. No signs of Graves' disease or ophthalmopathy. Her ESR/CRP have been normal. Patient was started on methimazole, which is now increased to 30 mg 3 times daily. She is also on cholestyramine as an adjunct for treatment of hyperthyroidism Propranolol is held given softer BP and suspicions for adrenal insufficiency Serum cortisol level is low on 2 occasions. She is given hydrocortisone stress dose 100 mg x 1, and started on 25 mg twice daily. Given persistent dizziness and softer blood pressure, it is increased to 50 mg 3 times daily. With improvement in blood pressure, hydrocortisone has been decreased to 25G 3 times daily. Follow-up on ultrasound thyroid. Follow-up on ACTH, TSI, TBII, [id number] antibody Daily free T4 Assessment & Plan (01/23/2025 4:42 PM EST): Possibility of underlying autoimmune polyglandular syndrome, type II Patient with severe hypothyroidism, with free T4 today again greater than 7.77 which is upper limit of what is measured by the lab. Endocrinology following. Appreciate recommendations. Unclear etiology. She has no history of amiodarone use. No signs of Graves' disease or ophthalmopathy. Her ESR/CRP have been normal. Patient was started on methimazole, which is now increased to 30 mg 3 times daily. Propranolol is held given hypotension and suspicions for adrenal insufficiency Serum cortisol level is low on 2 occasions. She is given hydrocortisone stress dose 100 mg x 1, and started on 25 mg twice daily. Given persistent dizziness and softer blood pressure, it is increased to 50 mg 3 times daily. Follow-up on ACTH, TSI, TBII, [id number] antibody Daily free T4 Blurry vision Patient reports dizziness associated with blurry vision. Her CT head was normal. This has not worsened. On examination, she has no diplopia. Extraocular movements remain normal. Will consider ophthalmology consultation should her condition worsen. Assessment & Plan (01/22/2025 4:26 PM EST): TSH less than 0.01 and free T4> 7.77 POA. Free T4 01/21 7.46. Her heart rate is better controlled. Otherwise hemodynamically stable. Transthoracic echo with normal biventricular function and no hemodynamically significant valvular abnormalities. Endocrinology consulted. Appreciate recommendations. She is on propranolol 60 mg 3 times daily -this is decreased to 40 mg 3 times daily given improvement in heart rate and softer blood pressure. Continued on methimazole 20 mg - 3 times daily. Ultrasound thyroid, TSI, thyrotropin bindin g inhibitory immunoglobulin, ESR, CRP ordered. ACTH, random cortisol has been sent. She is also status post hydrocortisone injection 100 mg x 1. She has no plans for future . Assessment & Plan (01/21/2025 6:07 PM EST): TSH less than 0.01 and free T4 greater than 7.77. Her heart rate has ranged from 100 - 115. Otherwise hemodynamically stable. Transthoracic echo with normal biventricular function and no hemodynamically significant valvular abnormalities. Endocrinology consulted. Appreciate recommendations. Started on propranolol 60 mg 3 times daily and methimazole 20 mg twice daily. Ultrasound thyroid, TSI, thyrotropin binding inhibitory immunoglobulin, ESR, CRP ordered. Encounters Date Type Department Care Team Description 01/20/2025 7:15 PM EST Ancillary Procedure [facility] [address] [place] [address] Provider, File Room 01/20/2025 5:39 PM EST - 01/30/2025 12:04 PM EST Hospital En[facility] [address] [place] [address] Guille Mcguire MD Sharma, Himanshu, MD Thapa, Samriddha, MD Pokhrel, MD Maria T Hyperthyroidism (Primary Dx); Anxiety; Moderate malnutrition: less than 75% intake compared to estimated needs for greater than 7 days, mild muscle loss(pectoralis major, interosseous), mild fat loss(orbital, buccal) Discharge Disposition: Home or Self Care from Last 3 Months Social History Tobacco Use Types Packs/Day Years Used Date Smoking Tobacco: Never Assessed AUDIT-C Answer Date Recorded Q1: How often do you have a drink containing alcohol? Monthly or less 01/21/2025 Q2: How many drinks containi ng alcohol do you have on a typical day when you are drinking? Patient does not drink Q3: How often do you have si x or more drinks on one occasion? Never 01/21/2025 Overall Financial Resource Strain (CARDIA) Answe r Date Recorded How hard is it for you to pa y for the very basics like food, housing, medical care, and heating? Not very hard 01/21/2025 Hunger Vital Sign Answer Date Recorded Within the past 12 months, y ou worried that your food would run out before you got the money to buy more. Never true 01/22/20 25 Within the past 12 months, t he food you bought just didn't last and you didn't have money to get more. Never true 01/21/2025 PRAPARE - Transportation Answer Date Re corded In the past 12 months, has l ack of transportation kept you from medical appointments or from getting medications? No 01/09 In the past 12 months, has l ack of transportation kept you from meetings, work, or from getting things needed for daily living? No 01/21/2025 Housing Stability Vital Sign Answer Bruce e Recorded In the last 12 months, was t here a time when you were not able to pay the mortgage or rent on time? No 01/21/2025 In the past 12 months, how m any times have you moved where you were living? 0 01/21/2025 At any time in the past 12 m [facility], were you homeless or living in a fdc (including now)? No 01/21/2025 [facility] Utilities Answer Date Recorded In the past 12 months has e electric, gas, oil, or water company threatened to shut off services in your home? No 01/21/2025 Comments Unknown Sex and Gender Information Value Date Recorded Sex Assigned at Female 01/20/2025 5:44 PM EST Legal Sex Female 3:10 PM EST Gender Identity Female 01/20/2025 5:44 PM EST Sexual Orientation Choose not to disclose 2024 5:44 PM EST Last Filed Vital Signs Vital Sign Reading Time Taken Comments Blood Pressure 125/60 01/30/2025 7:29 AM EST Pulse 99 01/30/2025 7:29 AM EST Temperature 36.2 C (97.2 F) 01/30/2025 7:29 AM EST Respiratory Rate 16 01/30/2025 7:29 AM EST Oxygen Saturation 99% 01/30/2025 7:29 AM EST Inhaled Oxygen Concentration - - Weight 72.9 kg (160 lb 11.5 oz) 025 10:00 AM EST Height 167.6 cm (5' 6 ) 01/21/2025 10:0 0 AM EST Body Mass Index 25.94 01/21/2025 10:00 AM EST Plan of Treatment Health Maintenance Due Date Last Done Comments DTaP/Tdap/Td Vaccines (1 - Tdap) 2005 Hepatitis B Vaccines (1 of 3 - 19+ 3-dose series) 2005 Pap Smear (Ages 21-65) 06/25/2007 Influenza Vaccine 10/09/2024 COVID-19 Vaccine ( - 2024-2 6 season) 2024 HIV Screening Completed 01/27/2025 Hepatitis C Virus Screening Completed 01/27/2025 HPV Vaccines (No Doses Required) Completed Pneumococcal Vaccine: Pediat jerilyn (0-5 Years) and At-Risk Patients (6 to 49 Years) Aged Out No longer eligible b ased on patient's age to complete this topic Procedures Procedure Name Priority Date/Time Associated Diagnosis Comments T4, FREE Routine 01/30/2025 7:45 AM EST HEPATIC FUNCTION PANEL Routine 9:01 AM EST T4, FREE Routine 01/29/2025 9:01 AM EST URIC ACID Routine 01/28/2025 6:50 AM EST T4, FREE Routine 01/28/2025 6:50 AM EST LACTATE DEHYDROGENASE (LDH) Routine 01/27/2025 4:30 PM EST HIV 1/2 AG/AB CMIA REFLEX TO CONFIRMATION Routine 01/27/2025 2:44 PM EST FLOW CYTOMETRY, BLOOD Routine 01/27/2025 2:44 PM EST HEPATITIS PANEL, ACUTE Routine 2:44 PM EST ANTI-NUCLEAR ANTIBODY SCREEN, REFLEX TITER AND PATTERN Q249 Routine 01/27/2025 2:44 PM EST LACTATE DEHYDROGENASE (LDH) Routine 01/27/2025 2:44 PM EST HEPATIC FUNCTION PANEL Routine 7:10 AM EST T4, FREE Routine 01/27/2025 7:10 AM EST BASIC METABOLIC PANEL Routine 01/27/2025 7:10 AM EST COMPLETE BLOOD COUNT, WITHOUT DIFFERENTIAL Routine 01/27/2025 7:10 AM EST FLOW CYTOMETRY REPORT Routine 01/27/2025 12:00 AM EST INFLUENZA A/B, RSV, SARS-COV-2 ANNAMARIE MULTIPLEX Routine 01/26/2025 7:57 AM EST T4, FREE Routine 01/26/2025 7:33 AM EST CORTISOL, AM Routine 01/26/2025 7:33 AM EST BASIC METABOLIC PANEL Routine 01/26/2025 7:33 AM EST COMPLETE BLOOD COUNT, WITHOUT DIFFERENTIAL Routine 01/26/2025 7:[address] CHEST/ABDOMEN+PELVIS W/O CONTRAST Routine 01/25/2025 5:03 PM EST URINALYSIS WITH REFLEX TO MICROSCOPIC Routine 01/25/2025 1:15 PM EST URINE CULTURE Routine 01/25/2025 1:15 PM EST METANEPHRINES, FRACTIONATED, PLASMA Routine 01/25/2025 11:58 AM EST T3, TOTAL [id number] Routine 01/25/2025 11:5 8 AM EST BETA-HCG, QUANTITATIVE Routine 11:25 AM EST COMPLETE BLOOD COUNT, WITH DIFFERENTIAL Routine 01/25/2025 10:44 AM EST T4, FREE Routine 01/25/2025 10:44 AM EST BLOOD CULTURE (HOSP LAB) Routine 01/25/2025 10:44 AM EST ECG 12-LEAD Routine 01/25/2025 8:06 AM EST T4, FREE Routine 01/25/2025 7:00 AM EST MISCELLANEOUS LAB TEST Routine 7:00 AM EST BASIC METABOLIC PANEL Routine 01/25/2025 7:00 AM EST COMPLETE BLOOD COUNT, WITHOUT DIFFERENTIAL Routine 01/25/2025 7:00 AM EST COMPLETE BLOOD COUNT, WITHOUT DIFFERENTIAL Routine 01/24/2025 7:40 AM EST BASIC METABOLIC PANEL Routine 01/24/2025 7:40 AM EST T4, FREE Routine 01/24/2025 7:40 AM EST MISCELLANEOUS LAB TEST Routine 11:52 AM EST COMPREHENSIVE METABOLIC PANEL Routine 01/23/2025 6:40 AM EST T4, FREE Routine 01/23/2025 6:40 AM EST COMPLETE BLOOD COUNT, WITHOUT DIFFERENTIAL Routine 01/23/2025 6:40 AM EST US THYROID Routine 01/22/2025 6:[address] HEAD W/O CONTRAST STAT 01/22/2025 2:44 PM EST ACTH Routine 01/22/2025 1:42 PM EST CORTISOL, RANDOM Routine 01/22/2025 1:42 PM EST CORTISOL, RANDOM Routine 01/22/2025 10:0 1 AM EST T4, FREE Routine 01/22/2025 10:01 AM EST C-REACTIVE PROTEIN Routine 01/21/2025 11 :43 AM EST ERYTHROCYTE SEDIMENTATION RATE (ESR) Routine 01/21/2025 11:43 AM EST THYROTROPIN BINDING INHIBITORY IMMUNOGLOBULIN (TBII) Routine 01/21/2025 11:43 AM EST THYROID STIMULATING IMMUNOGLOBULIN Routine 01/21/2025 11:43 AM EST POCT GLUCOSE, FINGERSTICK (CHARGE) Routine 01/21/2025 11:29 AM EST ECHOCARDIOGRAM (TTE) COMPREHENSIVE (CONTRAST PRN) Routine 01/21/2025 9:15 AM EST T4, FREE STAT 01/21/2025 6:44 AM EST COMPREHENSIVE METABOLIC PANEL STAT 01/21/2025 6:44 AM EST COMPLETE BLOOD COUNT, WITH DIFFERENTIAL STAT 01/21/2025 6:[address] ABDOMEN+PELVIS W/O CONTRAST STAT 01/20/2025 10:04 PM EST URINALYSIS WITH REFLEX TO MICROSCOPIC AND CULTURE STAT 01/20/2025 8:27 PM EST ECG 12-LEAD STAT 01/20/2025 7:36 PM EST CR ABDOMEN ARCHIVE FOR REFERENCE ONLY Routine 01/20/2025 7:13 PM EST COMPREHENSIVE METABOLIC PANEL STAT 01/20/2025 6:52 PM EST TSH, HIGHLY SENSITIVE STAT 01/20/2025 6:21 PM EST T4, FREE STAT 01/20/2025 6:21 PM EST COMPLETE BLOOD COUNT, WITH DIFFERENTIAL STAT 01/20/2025 6:21 PM EST from Last 3 Months Results * (ABNORMAL) T4, FREE (01/30/2025 7:45 AM EST) Only the most recent of12 resultswithin the time period is included. T4, Free 4.46(H) 0.80 - 1.90 ng/dL 01/30/2025 9:28 AM EST [facility] Blood Blood specimen / Unknown 01/30/2025 7:45 AM EST 01/30/2025 8:22 AM EST us Jhoana Martinez MD LAB BLOOD ORDERABLES Final Re sult [address] [address], [address] [address] * HEPATIC FUNCTION PANEL (01/29/2025 9:01 AM EST) Only the most recent of2 resultswithin the time period is included. Alkaline Phosphatase 62 32 - 122 U/L 01/29/2025 11:11 AM [facility] Aspartate Aminotrans (AST) 14 10 - 50 U/L 01/29/2025 11:11 AM [facility] Alanine Aminotrans (ALT) 17 10 - 50 U/L 01/29/2025 11:11 AM [facility] Bilirubin, Total 0.6 0.2 - 1.0 mg/dL 01/29/2025 11:11 AM [facility] Protein, Total 6.9 6.3 - 8.3 g/dL 01/29/2025 11:11 AM [facility] Albumin 4.0 3.5 - 5.0 g/dL 01/29/2025 11:11 AM [facility] Bilirubin, Direct 0.2 0 - 0.2 mg/dL 01/29/2025 11:11 AM [facility] Globulin 2.9 1.5 - 3.9 g/dL 01/29/2025 11:11 AM [facility] Albumin/Globulin Ratio 1.4 1.0 - 3.0 Ratio 01/29/2025 11:11 AM [facility] 01/29/2025 9:01 AM EST 01/29/2025 9:15 AM EST Jhoana Martinez MD LAB BLOOD ORDERABLES Final Re sult [address] [address], [address] [address] * URIC ACID (01/28/2025 6:50 AM EST) Pathologist [facility] Uric Acid 4.7 2.5 - 7.0 mg/dL 01/28/2025 8:35 AM [facility] Blood Blood specimen / Unknown 01/28/2025 6:50 AM EST 01/28/2025 7:48 AM EST Chasity Parra APRN LAB BLOOD ORDERABLES Final Result Performing Organization Address [facility] Co de Phone Number [address] [address], [address] [address] * (ABNORMAL) LACTATE DEHYDROGENASE (LDH) (01/27/2025 4:30 PM EST) Only the most recent of2 resultswithin the time period is included. Lactate Dehydrogenase (LDH) 314(H) 120 - 260 U/L 01/27/2025 6:13 PM EST [facility] Blood Blood specimen / Unknown 01/27/2025 4:30 PM EST 01/27/2025 5:40 PM EST Maria T Agustin MD LAB BLOOD ORDERABLES Final Resu lt Performing Organization Address [facility] [place] [address], [place] [address] * Flow Cytometry, Blood (01/27/2025 2:44 PM EST) Diagnosis EDTA WHOLE BLOOD 01/27/2025 2:59 PM EST [facility] Flow Cytometry Lym/Leuk See separate Pathology report. 01/28/2025 10:58 AM EST [facility] Blood Blood specimen / Unknown 01/27/2025 2:44 PM EST 01/27/2025 2:58 PM EST Chasity Parra APRN LAB BLOOD ORDERABLES Final Result Performing Organization Address City/[facility]/[place] [address], [place] [address] * Anti-Nuclear Antibody Screen, Reflex Titer and Pattern (01/27/2025 2:44 PM EST) Pathologist [facility] GALA Screen, IFA Negative Negative 1:38 AM EST [facility] [place] Comment: (NOTE) GALA IFA is a first line screen for detecting the presence of up to approximately 150 autoantibodies in various autoimmune diseases. A negative GALA IFA result suggests GALA-associated autoimmune disease is not present at this time, but is not definitive. If there is high clinical suspicion for Sjogren's Syndrome, testing for anti-SS-A/Ro antibody should be considered. Anti-Fawn-1 antibody should be considered for clinically suspected inflammatory myopathies. AC-0: Negative International Consensus on GALA Patterns https://doi.org/10.1515/bhjo-0306-7618 For additional information, please refer to http://education.Mandiant/faq/PEQ905 (This link is being provided for informational/ educational purposes only.) Blood Blood specimen / Unknown 01/27/2025 2:44 PM EST 01/27/2025 2:58 PM EST Chasity Parra TEST AND RESEARCH REACTOR OPERATOR LAB BLOOD ORDERABLES Final Result [employer] [id number] [facility] [address] [address] [place], [place] , [facility], [place] [address] [facility] [address] [address] [place], [place] * HIV 1/2 Ag/Ab CMIA Reflex to Confirmation (01/27/2025 2:44 PM EST) Pathologist [facility] HIV 1/2 Ag/Ab CMIA Nonreactive Nonreactive 01/28/2025 10:54 AM EST [facility] Comment: Results show no evidence of infection by HIV 1/2. If clinically indicated, repeat CMIA or test by nucleic acid amplification. HIV 1/2 Antigen/Antibody CMIA reflex to confirmation AND HIV-1 RNA viral load recommended in patients who are taking or have recently taken PrEP. Blood Blood specimen / Unknown 01/27/2025 2:44 PM EST 01/27/2025 2:58 PM EST Chasity Parra TEST AND RESEARCH REACTOR OPERATOR LAB BLOOD ORDERABLES Final Result [facility] [address] [place] [address], * Hepatitis Panel, Acute (01/27/2025 2:44 PM EST) Hepatitis A Antibody IgM Nonreactive Nonreactive 01/28/2025 10:54 AM [facility] Hepatitis B Core Antibody IgM Nonreactive Nonreactive 01/28/2025 10:54 AM [facility] Hepatitis B Surface Ag Screen Nonreactive Nonreactive 01/28/2025 10:54 AM [facility] Hepatitis C Antibody Nonreactive Nonreactive 01/28/2025 10:54 AM [facility] Comment:Antibodies to HCV no t detected. This does not exclude the possibility of exposure to HCV. Hepatitis Interpretation : Results inconsistent with acute Hepatitis A, B or C Virus infection. 01/28/2025 10:54 AM [facility] Blood Blood specimen / Unknown 01/27/2025 2:44 PM EST 01/27/2025 2:58 PM EST Chasity Parra TEST AND RESEARCH REACTOR OPERATOR LAB BLOOD ORDERABLES Final Result Performing Organization Address [facility] Co de Phone Number [facility] [address] [place] [address], [place] * Complete Blood Count WITHOUT Differential - Early AM (01/27/2025 7:10 AM EST) Only the most recent of5 resultswithin the time period is included. White Blood Cell Count 6.4 4.0 - 11.0 Thou/uL 01/27/2025 8:19 AM [facility] Platelet Count 305 150 - 450 Thou/uL 01/27/2025 8:19 AM [facility] Hemoglobin 11.9 11.7 - 15.7 g/dL 01/27/2025 8:19 AM [facility] Hematocrit 35.9 35.0 - 47.0 % 01/27/2025 8:19 AM [facility] Red Blood Cell Count 4.17 4.00 - 5.40 Mil/uL 01/27/2025 8:19 AM [facility] MCV 86 80 - 100 fL 01/27/2025 8:19 AM [facility] MCH 28.5 26.0 - 34.0 pg 01/27/2025 8:19 AM [facility] MCHC 33.1 30.0 - 36.0 g/dL 01/27/2025 8:19 AM [facility] RDW 12.3 11.5 - 14.5 % 01/27/2025 8:19 AM [facility] MPV 10.8 7.5 - 12.5 fL 01/27/2025 8:19 AM [facility] Blood Blood specimen / Unknown 01/27/2025 7:10 AM EST 01/27/2025 7:49 AM EST Jhoana Martinez MD LAB BLOOD ORDERABLES [place] [address], [place] [address] * Basic Metabolic Panel (01/27/2025 7:10 AM EST) Only the most recent of4 resultswithin the time period is included. Glucose 98 65 - 99 mg/dL 01/27/2025 8:33 AM [facility] Comment:Fasting: <100 mg/dL, Non-Fasting: <200 mg/dL (ADA 2005) Blood Urea Nitrogen (BUN) 10 8 - 21 mg/dL 01/27/2025 8:33 AM [facility] Creatinine 0.51 0.40 - 1.10 mg/dL 01/27/2025 8:33 AM [facility] eGFR >90 >59 01/27/2025 8:33 AM [facility] Comment:CKD-EPI (2020) in mL /min/1.73 sq meters. Sodium 139 136 - 145 mmol/L 01/27/2025 8:33 AM [facility] Potassium 3.7 3.4 - 5.3 mmol/L 01/27/2025 8:33 AM [facility] Chloride 107 98 - 107 mmol/L 01/27/2025 8:33 AM EST [facility] CO2 25 22 - 33 mmol/L 01/27/2025 8:33 AM [facility] Anion Gap 7 7 - 17 01/27/2025 8:33 AM [facility] Calcium 9.4 8.7 - 10.5 mg/dL 01/27/2025 8:33 AM [facility] BUN/Creatinine Ratio 20 10.0 - 25.0 Ratio 01/27/2025 8:33 AM [facility] Blood Blood specimen / Unknown 01/27/2025 7:10 AM EST 01/27/2025 7:49 AM EST Jhoana Martinez MD LAB BLOOD ORDERABLES [place] [address], [place] [address] * Flow Cytometry Report (01/27/2025 12:00 AM EST) Report [facility] [id number] CLIA ID [id number] [address] [place] [address] / [phone] Hematopathology Report PATIENT NAME: YOLIE ESTRELLA REC NUMBER: [id number] (AGE): 1985 (Age: 39) SPECIMEN NUMBER: [id number] DATE OBTAINED: 01/27/2025 DIAGNOSIS PERIPHERAL BLOOD (FLOW CYTOMETRY): NO MONOCLONAL B-CELL POPULATION IDENTIFIED. SEE COMMENT. pxs/02/01/2025 Electronically Signed Out MINERVA EPPERSON MD Signout Facility: [address] CLIA #: [id number] COMMENT By flow cytometry, most of the lymphocytes are T cells, without specific qualitative phenotypic abnormalities, including CD4+ and CD8+ subsets. B cells comprise a mixture of kappa- and lambda-bearing cells, without evidence of light chain restriction. CD34+ blasts comprise <0.1% of the WBCs. [id number] Clinical Information and History: Mediastinal mass Tissue(s) Submitted: A: PERIPHERAL BLOOD (FLOW) Gross Description: Received is a peripheral blood specimen in EDTA (1 tube) for flow cytometry. Microscopic Description: FLOW CYTOMETRY: Studies performed - CD3, CD4, CD5, CD7, CD8, CD10, CD16, CD19, CD20, CD33, CD34, CD38, CD45, CD56, CD71, CD123, HLA-DR, kappa, lambda. This test was developed and its performance characteristics determined by the [facility]. It has not been cleared or approved by the U.S. Food and Drug Administration. HOSPITAL LAB 01/27/2025 01/27/2025 3:2 8 PM EST Comment:PERIPHERAL BLOOD (FL OW) Chasity Parra TEST AND RESEARCH REACTOR OPERATOR PATHOLOGY/CYTOLOGY O RDERABLES Final Result Performing Organization Address City/[facility] Co de Phone Number HOSPITAL LAB See Below * Influenza A/B, RSV, SARS-CoV-2 ANNAMARIE Multiplex (FLUVID) (01/26/2025 7:57 AM EST) Influenza A Virus Not Detected Not Detected 01/26/2025 10:27 AM [facility] Influenza B Virus Not Detected Not Detected 01/26/2025 10:27 AM [facility] SARS-CoV-2 Not Detected Not Detected 01/26/2025 10:27 AM [facility] Respiratory Syncytial Virus Not Detected Not Detected 01/26/2025 10:27 AM [facility] Comment Negative results do not preclude SARS-CoV-2, Influenza or RSV infection and should not be used as the sole basis for treatment or other patient management decisions. 01/26/2025 10:27 AM [facility] Swab, Nasopharyngeal Nasopharyngeal swab / Unknown 01/26/2025 7:57 AM EST 01/26/2025 9:08 AM EST Jhoana Martinez MD MICROBIOLOGY - GENERAL ORDERA BLES Final Result Performing Organization Address [facility] Co de Phone Number [address] [address], [address] [address] * CORTISOL, AM (01/26/2025 7:33 AM EST) Cortisol, AM 6.8 6.2 - 19.4 ug/dL 01/26/2025 11:13 AM EST [facility] 01/26/2025 7:33 AM EST 01/26/2025 8:29 AM EST Jhoana Martinez MD LAB BLOOD ORDERABLES Final Re sult [facility] [address] [facility] [place] [address], [facility] [address] [place] [address] * CT Chest/abdomen+pelvis w/o contrast (01/25/2025 5:03 PM EST) Anatomical Region Laterality Modality Chest, Abdomen, Pelvis Computed Tomography 01/25/2025 4:55 PM EST Impressions 01/26/2025 9:25 AM EST Limited noncontrast examination. 1. Anterior mediastinal mass [...] follow-up with pelvic ultrasound in 4-6 weeks. Narrative 01/26/2025 9:25 AM EST EXAMINATION: CT CHEST, ABDOMEN AND PELVIS WITHOUT CONTRAST CLINICAL INFORMATION: Septic workup. COMPARISON: CT abdomen and pelvis 01/20/2025. TECHNIQUE: Multidetector volumetric imaging was performed from the thoracic inlet through the pubic symphysis. Sagittal and coronal reformatted images were obtained on the technologist's workstation. Axial MIP volume rendering provided. This CT examination was performed using dose optimization techniques as appropriate, variously including the following: *Automated exposure control *Adjustment of mA and/or kV according to patient size (this includes techniques or standardized protocols for targeted exams where dose is matched to indication/reason for exam; i.e. extremities or head) *Use of iterative reconstruction technique DLP: 356 mGy-cm FINDINGS: Limited noncontrast examination. CHEST: Lungs: No consolidation or significant groundglass disease. Trace bronchial wall thickening with a few regions of mild bronchiectasis for example as visualized in the right apex image 127 series 303. A 4 mm nodule in the superiormost aspect of the right lower lobe adjacent to the major fissure (image 207 series 303). A few additional micronodules and small calcified granulomas. Mediastinum: Anterior mediastinal high density and somewhat triangularly shaped masslike abnormality centered in the thymic region extending cephalad to region adjacent to the thyroid gland and caudally to the mid to lower cardiac silhouette measuring up to 1.5 cm in thickness and approximately 10 cm craniocaudally. Normal heart size. No lymphadenopathy by size criteria. Normal appearance of the thyroid gland. Coronary Artery Calcification: None visualized on this study. Pleura: No pleural effusion or pneumothorax. No pleural-based mass. Chest Wall/Axilla: Bilateral breast implants. ABDOMEN/PELVIS: Liver, Gallbladder, Biliary Tree: The liver is normal in size, shape, and attenuation. No focal hepatic lesion or biliary ductal dilatation is present. The gallbladder is unremarkable with no evidence of radiopaque gallstones, gallbladder wall thickening, or pericholecystic inflammatory changes. Pancreas: Unremarkable. Spleen: Unremarkable. Adrenal Glands: Unremarkable. Kidneys and Ureters: Stable 7 and 8 mm right renal calculi along the interpolar right renal pelvis measuring up to 1243 Hounsfield units, with unchanged adjacent pelviectasis. Stable 6 calculus in the interpolar left kidney as well as at least 2 additional punctate calculi in the upper and lower poles of the left kidney. Trace stranding centered around the right renal pelvis/ureteropelvic junction (image 80 series 2). Bladder: Unremarkable. Gastrointestinal Tract: No evidence of bowel obstruction. Normal appendix. No pericolonic inflammatory changes. Abdominal Wall: Unremarkable. Lymphovascular Structures: Lymph nodes: No lymphadenopathy by size criteria. Vascular: Normal caliber abdominal aorta. Pelvic Viscera: Simple appearing cyst in the right ovary measuring up to 2.8 cm (image 108 series 2). OSSEOUS STRUCTURES: No acute or aggressive appearing osseous findings. Right humeral head anchors. Procedure Note Sujey Ovalles MD - 01/26/2025 EXAMINATION: CT CHEST, ABDOMEN AND PELVIS WITHOUT CONTRAST CLINICAL INFORMATION: Septic workup. COMPARISON: CT abdomen and pelvis 01/20/2025. TECHNIQUE: Multidetector volumetric imaging was performed from the thoracic inlet through the pubic symphysis. Sagittal and coronal reformatted images were obtained on the technologist's workstation. Axial MIP volume rendering provided. This CT examination was performed using dose optimization techniques as appropriate, variously including the following: *Automated exposure control *Adjustment of mA and/or kV according to patient size (this includes techniques or standardized protocols for targeted exams where dose is matched to indication/reason for exam; i.e. extremities or head) *Use of iterative reconstruction technique DLP: 356 mGy-cm FINDINGS: Limited noncontrast examination. CHEST: Lungs: No consolidation or significant groundglass disease. Trace bronchial wall thickening with a few regions of mild bronchiectasis for example as visualized in the right apex image 127 series 303. A 4 mm nodule in the superiormost aspect of the right lower lobe adjacent to the major fissure (image 207 series 303). A few additional micronodules and small calcified granulomas. Mediastinum: Anterior mediastinal high density and somewhat triangularly shaped masslike abnormality centered in the thymic region extending cephalad to region adjacent to the thyroid gland and caudally to the mid to lower cardiac silhouette measuring up to 1.5 cm in thickness and approximately 10 cm craniocaudally. Normal heart size. No lymphadenopathy by size criteria. Normal appearance of the thyroid gland. Coronary Artery Calcification: None visualized on this study. Pleura: No pleural effusion or pneumothorax. No pleural-based mass. Chest Wall/Axilla: Bilateral breast implants. ABDOMEN/PELVIS: Liver, Gallbladder, Biliary Tree: The liver is normal in size, shape, and attenuation. No focal hepatic lesion or biliary ductal dilatation is present. The gallbladder is unremarkable with no evidence of radiopaque gallstones, gallbladder wall thickening, or pericholecystic inflammatory changes. Pancreas: Unremarkable. Spleen: Unremarkable. Adrenal Glands: Unremarkable. Kidneys and Ureters: Stable 7 and 8 mm right renal calculi along the interpolar right renal pelvis measuring up to 1243 Hounsfield units, with unchanged adjacent pelviectasis. Stable 6 calculus in the interpolar left kidney as well as at least 2 additional punctate calculi in the upper and lower poles of the left kidney. Trace stranding centered around the right renal pelvis/ureteropelvic junction (image 80 series 2). Bladder: Unremarkable. Gastrointestinal Tract: No evidence of bowel obstruction. Normal appendix. No pericolonic inflammatory changes. Abdominal Wall: Unremarkable. Lymphovascular Structures: Lymph nodes: No lymphadenopathy by size criteria. Vascular: Normal caliber abdominal aorta. Pelvic Viscera: Simple appearing cyst in the right ovary measuring up to 2.8 cm (image 108 series 2). OSSEOUS STRUCTURES: No acute or aggressive appearing osseous findings. Right humeral head anchors. IMPRESSION: Limited noncontrast examination. 1. Anterior mediastinal mass [...] follow-up with pelvic ultrasound in 4-6 weeks. Jhoana Martinez MD IM CT ORDERABLES Final Resul t * (ABNORMAL) Urine Culture (01/25/2025 1:15 PM EST) Culture Gram positive coryneform bacillus or Gram positive cocci 1000 col/mL Organisms isolated are in small numbers and may not relate to infection. (A) 01/27/2025 9:57 AM EST [facility] Urine Urine specimen obtained by clean catch procedure / Unknown 01/25/2025 1:15 PM EST 01/25/2025 2:35 PM EST Comment:Urine us Jhoana Martinez MD MICROBIOLOGY - GENERAL ORDERA BLES Final Result [facility] [address] [place] [address], [place] * (ABNORMAL) Urinalysis with Reflex to Microscopic (01/25/2025 1:15 PM EST) Color Yellow 01/25/2025 2:53 PM [facility] Clarity Cloudy 01/25/2025 2:53 PM [facility] Specific [place] 1.010 1.005 - 1.030 01/25/2025 2:53 PM [facility] pH 6.0 5.0 - 8.0 01/25/2025 2:53 PM [facility] Leukocyte Esterase Small(A) Negative 01/25/2025 2:53 PM [facility] Nitrite Negative Negative 01/25/2025 2:53 PM [facility] Protein Trace(A) Negative mg/dL 01/25/2025 2:53 PM [facility] Glucose Negative Negative mg/dL 01/25/2025 2:53 PM [facility] Ketones Negative Negative mg/dL 01/25/2025 2:53 PM [facility] Blood Trace(A) Negative 01/25/2025 2:53 PM [facility] Bilirubin Negative Negative 01/25/2025 2:53 PM [facility] RBC 6(H) 0 - 4 per hpf 01/25/2025 2:53 PM [facility] WBC 19(H) 0 - 4 per hpf 01/25/2025 2:53 PM [facility] Epithelial Cells 5 per hpf 01/25/2025 2:53 PM [facility] Casts 2 0 - 4 per lpf 01/25/2025 2:53 PM [facility] Comment:Casts are hyaline un less otherwise noted. Bacteria Present(A) Absent 01/25/2025 2:53 PM [facility] Comment:Presence of bacteria does not necessarily indicate a UTI. Please correlate with degree of pyuria and presence of clinical symptoms for UTI. Urine Urine specimen obtained by clean catch procedure / Unknown 01/25/2025 1:15 PM EST 01/25/2025 2:35 PM EST Jhoana Martinez MD URINE ORDERABLES Final Result [address] [address], [address] [address] * (ABNORMAL) T3, Total (01/25/2025 11:58 AM EST) Pathologist [facility] T3, Total 299.1(H) 76 - 181 ng/dL 01/29/2025 8:38 AM EST [employer] Blood Blood specimen / Unknown 01/25/2025 11:58 AM EST 01/25/2025 12:16 PM EST us Tanna Pagan MD LAB BLOOD ORDERABLES Fi nal Result Performing Organization Address City/[facility]/ZIP Co de Phone Number [employer], [employer] [address] [facility] [address] [address] [place], [place] , [facility], [place] [address] [facility] [address] [address] [place], [place] * Metanephrines, Fractionated, Plasma (01/25/2025 11:58 AM EST) [facility] Metanephrine 35 <=57 pg/mL 01/29/2025 8:24 AM EST [facility] Comment: (NOTE) This test was developed and its analytical performance characteristics have been determined by [employer] [place], [place]. It has not been cleared or approved by the U.S. Food and Drug Administration. This assay has been validated pursuant to the CLIA regulations and is used for clinical purposes. Normetanephrine 45 <=148 pg/mL 01/29/2025 8:24 AM EST [facility] Comment: (NOTE) This test was developed and its analytical performance characteristics have been determined by [employer] [facility] [place]. It has not been cleared or approved by the U.S. Food and Drug Administration. This assay has been validated pursuant to the CLIA regulations and is used for clinical purposes. Total Metanephrine, Plasma 80 <=205 pg/mL 01/29/2025 8:24 AM EST [facility] Comment: (NOTE) For additional information, please refer to http://education.ID.me.Gasngo/faq/MetFractFree (This link is being provided for informational/educatio informational/educational purposes only.) Elevations >4-fold upper reference range: strongly suggestive of a pheochromocytoma(1). Elevations >1- 4-fold upper reference range: significant but not diagnostic, may be due to medications or stress. Suggest running 24 hr urine fractionated metanephrines and/or serum Chromagranin A for confirmation. Reference: (1)Kendrick Hui et al, Plasma Chromogranin A or Urine Fractionated Metanephrines Follow-Up Testing Improves the Diagnostic Accuracy of Plasma Fractionated Metanephrines for Pheochromocytoma. The Journal of Clinical Endocrinology # Metabolism 93(1), 91-95, 2008. This test was developed and its analytical performance characteristics have been determined by [facility] [place], [place]. It has not been cleared or approved by the U.S. Food and Drug Administration. This assay has been validated pursuant to the CLIA regulations and is used for clinical purposes. Blood Blood specimen / Unknown 01/25/2025 11:58 AM EST 01/25/2025 12:16 PM EST Tanna Pagan MD LAB BLOOD ORDERABLES Fi nal Result [employer], [employer] [id number] [facility] [address] [address] [place], [place] , [facility], [employer] [id number] [facility] [address] [address] [place], [place] * Beta-hCG, Quantitative (01/25/2025 11:25 AM EST) Beta-hCG, Quantitative <5 <5 mIU/mL 01/25/2025 12:21 PM EST [facility] Blood Blood specimen / Unknown 01/25/2025 11:25 AM EST 01/25/2025 11:46 AM EST Jhoana Martinez MD LAB BLOOD ORDERABLES Final Re sult Performing Organization Address City/[facility]/ZIP Co de Phone Number [facility] [address] [place] [address], [facility] [address] [place] [address] * Blood Culture (01/25/2025 10:44 AM EST) Culture Sterile after 5 days 01/30/2025 7:59 AM [facility] Blood Blood specimen / Unknown 01/25/2025 10:44 AM EST 01/25/2025 11:32 AM EST Comment:Blood Jhoana Martinez MD LAB BLOOD ORDERABLES Final Re sult Performing Organization Address City/[facility]/ZIP Co de Phone Number [facility] [address] [place] [address], * (ABNORMAL) Complete Blood Count WITH Differential - Early AM (01/25/2025 10:44 AM EST) Only the most recent of3 resultswithin the time period is included. White Blood Cell Count 10.4 4.0 - 11.0 Thou/uL 01/25/2025 11:32 AM [facility] Platelet Count 264 150 - 450 Thou/uL 01/25/2025 11:32 AM [facility] Hemoglobin 11.3(L) 11.7 - 15.7 g/dL 01/25/2025 11:32 AM [facility] Hematocrit 33.5(L) 35.0 - 47.0 % 01/25/2025 11:32 AM [facility] Red Blood Cell Count 3.88(L) 4.00 - 5.40 Mil/uL 01/25/2025 11:32 AM [facility] MCV 86 80 - 100 fL 01/25/2025 11:32 AM [facility] MCH 29.1 26.0 - 34.0 pg 01/25/2025 11:32 AM [facility] MCHC 33.7 30.0 - 36.0 g/dL 01/25/2025 11:32 AM [facility] RDW 12.3 11.5 - 14.5 % 01/25/2025 11:32 AM [facility] MPV 11.1 7.5 - 12.5 fL 01/25/2025 11:32 AM [facility] Neutrophils Auto 50.8 % 01/26/20 11:32 AM [facility] Immature Granulocytes 0.5 % 01/25/2025 11:32 AM [facility] Lymphocytes Auto 41.1 % 01/26/20 11:32 AM [facility] Monocytes Auto 6.3 % 01/25/2025 11:32 AM [facility] Eosinophils Auto 1.0 % 01/26/20 11:32 AM [facility] Basophils Auto 0.3 % 01/25/2025 11:32 AM [facility] Abs Neutrophils Auto 5.27 2.00 - 7.50 Thou/uL 01/25/2025 11:32 AM [facility] Abs Immature Granulocytes 0.05 0.00 - 0.10 Thou/uL 01/25/2025 11:32 AM [facility] Abs Lymphocytes Auto 4.26 1.50 - 4.50 Thou/uL 01/25/2025 11:32 AM [facility] Abs Monocytes Auto 0.65 0.20 - 1.50 Thou/uL 01/25/2025 11:32 AM [facility] Abs Eosinophils Auto 0.10 0.00 - 0.70 Thou/uL 01/25/2025 11:32 AM [facility] Abs Basophils Auto 0.03 0.00 - 0.20 Thou/uL 01/25/2025 11:32 AM [facility] Blood Blood specimen / Unknown 01/25/2025 10:44 AM EST 01/25/2025 11:15 AM EST Jhoana Martinez MD LAB BLOOD ORDERABLES Final Re sult [facility] [address] [place] [address], [place] [address] * ECG 12 lead (01/25/2025 8:06 AM EST) Only the most recent of2 resultswithin the time period is included. Ventricular rate 116 BPM EKG [facility] Atrial rate 116 BPM EKG [facility] P-R interval 138 ms EKG [facility] QRS duration 80 ms EKG [facility] Q-T interval 326 ms EKG [facility] QTC calculation ([place]) 453 ms EKG [facility] P axis [address] [facility] R axis [address] [facility] T axis [address] [facility] 01/25/2025 8:06 AM EST Narrative EKG [facility] - 01/25/2025 8:46 AM EST Sinus tachycardia Otherwise normal ECG When compared with ECG of 20-Jan-2025 19:36, Nonspecific T wave abnormality no longer evident in Anterior leads Confirmed by MD Schroeder Christopher ([id number]) on 01/25/2025 8:46:00 AM Procedure Note Reggie Schroeder MD - 01/25/2025 Sinus tachycardia Otherwise normal ECG When compared with ECG of 20-Jan-2025 19:36, Nonspecific T wave abnormality no longer evident in Anterior leads Confirmed by MD Schroeder Christopher ([id number]) on 01/25/2025 8:46:00 AM Guille Mcguire MD ECG ORDERABLES Final Result [facility] * Anti 21 hydroxylase antibody - Miscellaneous Test (01/25/2025 7:00 AM EST) Only the most recent of2 resultswithin the time period is included. Test Name ANTI 21 HYDROXYLASE ANTIBODY 01/25/2025 7:05 AM EST [facility] Result Grossly Hemolyzed,Recol lection Requested 01/25/2025 11:57 AM EST [facility] Comment:CC LEFT MESSAGE WITH , dietary tech Laboratory Performed at [facility] 01/25/2025 8:52 AM EST [facility] Blood Blood specimen / Unknown 01/25/2025 7:00 AM EST 01/25/2025 8:46 AM EST Jhoana Martinez MD BODY FLUIDS AND STOOLS ORDERA BLES Final Result [facility] [address] [place] [address], [facility] [address] [place] [address] [address] [place], [place] * Comprehensive Metabolic Panel (01/23/2025 6:40 AM EST) Only the most recent of3 resultswithin the time period is included. Glucose 97 65 - 99 mg/dL 01/23/2025 8:29 AM [facility] Comment:Fasting: <100 mg/dL, Non-Fasting: <200 mg/dL (ADA 2004) Blood Urea Nitrogen (BUN) 9 8 - 21 mg/dL 01/23/2025 8:29 AM [facility] Creatinine 0.50 0.40 - 1.10 mg/dL 01/23/2025 8:29 AM [facility] eGFR >90 >59 01/23/2025 8:29 AM [facility] Comment:CKD-EPI (2020) in mL /min/1.73 sq meters. Sodium 137 136 - 145 mmol/L 01/23/2025 8:29 AM [facility] Potassium 3.8 3.4 - 5.3 mmol/L 01/23/2025 8:29 AM [facility] Chloride 101 98 - 107 mmol/L 01/23/2025 8:29 AM [facility] CO2 23 22 - 33 mmol/L 01/23/2025 8:29 AM [facility] Calcium 9.5 8.7 - 10.5 mg/dL 01/23/2025 8:29 AM [facility] Alkaline Phosphatase 60 32 - 122 U/L 01/23/2025 8:29 AM [facility] Aspartate Aminotrans (AST) 14 10 - 50 U/L 01/23/2025 8:29 AM [facility] Alanine Aminotrans (ALT) 15 10 - 50 U/L 01/23/2025 8:29 AM [facility] Bilirubin, Total 0.4 0.2 - 1.0 mg/dL 01/23/2025 8:29 AM [facility] Protein, Total 6.5 6.3 - 8.3 g/dL 01/23/2025 8:29 AM [facility] Albumin 3.6 3.5 - 5.0 g/dL 01/23/2025 8:29 AM [facility] BUN/Creatinine Ratio 18 10.0 - 25.0 Ratio 01/23/2025 8:29 AM [facility] Globulin 2.9 1.5 - 3.9 g/dL 01/23/2025 8:29 AM [facility] Albumin/Globulin Ratio 1.2 1.0 - 3.0 Ratio 01/23/2025 8:29 AM [facility] Anion Gap 13 7 - 17 01/23/2025 8:29 AM [facility] Blood Blood specimen / Unknown 01/23/2025 6:40 AM EST 01/23/2025 7:05 AM EST Jhoana Martinez MD LAB BLOOD ORDERABLES [place] [address], [place] [address] * US Thyroid (01/22/2025 6:44 PM EST) Anatomical Region Laterality Modality Neck Ultrasound 01/22/2025 6:22 PM EST Impressions 01/24/2025 9:53 PM EST Heterogeneous thyroid gland with increased vascularity suggesting thyroiditis. No discrete thyroid nodules. ACR TI-RADS RECOMMENDATION REFERENCE: Ultrasound-guided fine-needle aspiration, followup ultrasound, no further follow [...] threshold for followup receive no follow up. Narrative 01/24/2025 9:53 PM EST EXAMINATION: US THYROID CLINICAL INFORMATION: Hyperthyroidism COMPARISON: None available. TECHNIQUE: Linear transducer grayscale and color Doppler examination with attention to the region of the thyroid. FINDINGS: SIZE: Measurements of the thyroid lobes and [...] than or equal to 1 cm: 0. Retail Shift Supervisor nodules are described as follows: NODES: No lymphadenopathy is seen in the tissue surrounding the thyroid gland. Procedure Note Dionicio Perez MD - 01/24/2025 EXAMINATION: US THYROID CLINICAL INFORMATION: Hyperthyroidism COMPARISON: None available. TECHNIQUE: Linear transducer grayscale and color Doppler examination with attention to the region of the thyroid. FINDINGS: SIZE: Measurements of the thyroid lobes and [...] than or equal to 1 cm: 0. Retail Shift Supervisor nodules are described as follows: NODES: No lymphadenopathy is seen in the tissue surrounding the thyroid gland. IMPRESSION: Heterogeneous thyroid gland with increased vascularity suggesting thyroiditis. No discrete thyroid nodules. ACR TI-RADS RECOMMENDATION REFERENCE: Ultrasound-guided fine-needle aspiration, followup ultrasound, no further follow [...] threshold for followup receive no follow up. us Tanna Pagan MD IMG US ORDERABLES Final Result * CT Head w/o contrast (01/22/2025 2:44 PM EST) Anatomical Region Laterality Modality Head Computed Tomogra phy 01/22/2025 2:31 PM EST Impressions 01/22/2025 3:20 PM EST 1. No acute intracranial abnormality. Narrative 01/22/2025 3:20 PM EST EXAM: CT HEAD WITHOUT CONTRAST 01/22/2025 02:44:53 PM TECHNIQUE: CT of the head was performed without the administration of intravenous contrast. Automated exposure control, iterative reconstruction, and/or weight based adjustment of the mA/kV was utilized to reduce the radiation dose to as low as reasonably achievable. COMPARISON: None available. CLINICAL HISTORY: New onset blurry vision and headache FINDINGS: BRAIN AND VENTRICLES: No acute hemorrhage. No evidence of acute infarct. No hydrocephalus. No extra-axial collection. No mass effect or midline shift. ORBITS: No acute abnormality. SINUSES: No acute abnormality. SOFT TISSUES AND SKULL: No acute soft tissue abnormality. No skull fracture. Procedure Note Farhat Molina MD - 01/22/2025 EXAM: CT HEAD WITHOUT CONTRAST 01/22/2025 02:44:53 PM TECHNIQUE: CT of the head was performed without the administration of intravenous contrast. Automated exposure control, iterative reconstruction, and/or weight based adjustment of the mA/kV was utilized to reduce the radiation dose to as low as reasonably achievable. COMPARISON: None available. CLINICAL HISTORY: New onset blurry vision and headache FINDINGS: BRAIN AND VENTRICLES: No acute hemorrhage. No evidence of acute infarct. No hydrocephalus. No extra-axial collection. No mass effect or midline shift. ORBITS: No acute abnormality. SINUSES: No acute abnormality. SOFT TISSUES AND SKULL: No acute soft tissue abnormality. No skull fracture. IMPRESSION: 1. No acute intracranial abnormality. us Jhoana Martinez MD IMG CT ORDERABLES Final Resul t * Cortisol, Random (01/22/2025 1:42 PM EST) Only the most recent of2 resultswithin the time period is included. Cortisol, Random 0.7 ug/dL 01/22/2025 2:41 PM EST [facility] Comment: AM Reference Range: 6.2-19.4 ug/dL PM Reference Range: 2.3-11.9 ug/dL Blood Blood specimen / Unknown 01/22/2025 1:42 PM EST 01/22/2025 1:51 PM EST us Tanna Pagan MD LAB BLOOD ORDERAB[place] [address], [address] [address] * ADRENOCORTICOTROPHIC HORMONE (ACTH), PLASMA (01/22/2025 1:42 PM EST) ACTH 18 6 - 50 pg/mL 01/26/2025 2:33 PM EST [facility] Comment: (NOTE) Reference range applies only to specimens collected between 7am-10am. Blood Blood specimen / Unknown 01/22/2025 1:42 PM EST 01/22/2025 1:51 PM EST us Tanna Pagan MD LAB BLOOD ORDERABLES Fi nal Result Performing Organization Address [facility] Co de Phone Number [facility] [place] [address] [facility] [address] [address] [place], [place] , [facility], [place] [address] [facility] [address] [place], [place] * (ABNORMAL) Thyroid Stimulating Immunoglobulin (01/21/2025 11:43 AM EST) Thyroid Stimulating Immunoglob (TSI) 241(H) <140 % baseline 01/25/2025 3:07 PM EST [facility] Comment: (NOTE) Thyroid stimulating immunoglobulins (TSI) can engage the TSH receptors resulting in hyperthyroidism in Graves' disease patients. TSI levels can be useful in monitoring the clinical outcome of Graves' disease as well as assessing the potential for hyperthyroidism from maternal- transfer. TSI results greater than or equal to (>=) 140% of the Reference Control are considered positive. NOTE: A serum TSH level greater than 350 micro-International Units/mL can interfere with the TSI bioassay and potentially give false positive results. Patients who are and are suspected of having hyperthyroidism should have both TSI and human Chorionic Gonadotropin(hCG) tests measured. A serum hCG level greater than 40,625 mIU/mL can interfere with the TSI bioassay and may give false negative results. In these patients it is recommended that a second TSI be obtained when the hCG concentration falls below 40,625 mIU/mL (usually after approximately 20-weeks gestation). The analytical performance characteristics of this assay have been determined by [facility] [place], [place]. The modifications have not been cleared or approved by the FDA. This assay has been validated pursuant to the CLIA regulations and is used for clinical purposes. Blood Blood specimen / Unknown 01/21/2025 11:43 AM EST 01/21/2025 1:09 PM EST Tanna Pagan MD LAB BLOOD ORDERABLES Fi nal Result Performing Organization Address City/[facility]/ZIP Co de Phone Number [facility] [place] [address] [facility] [address] [place], [place] , [facility], [employer] [address] [facility] [address] [place] [address] * (ABNORMAL) Thyrotropin Binding Inhibitory Immunoglobulin (TBII) (01/21/2025 11:43 AM EST) TBII (Thyrotropin-Bind ing Inhibitory Immunoglobulin) 5.63(H) <=2.00 IU/L 01/24/2025 10:29 PM EST [facility] [place] Comment: (NOTE) This test was performed using the TRAb Antibody PAU method which is standardized against the 1st International Standard 90/672 and is reported in International Units (IU/L). The reference range reported was established specifically for this test method. Blood Blood specimen / Unknown 01/21/2025 11:43 AM EST 01/21/2025 1:09 PM EST us Tanna Pagan MD LAB BLOOD ORDERABLES Fi nal Result [facility] [place] [address] , [facility] [place] [address] * Erythrocyte Sedimentation Rate (ESR) (01/21/2025 11:43 AM EST) [facility] Erythrocyte Sediment Rate (ESR) 6 <20 MM/HR 01/21/2025 2:03 PM EST [facility] Blood Blood specimen / Unknown 01/21/2025 11:43 AM EST 01/21/2025 1:09 PM EST us Tanan Pagan MD LAB BLOOD ORDERABLES Fi nal Result [address] [address], [address] [address] * C-Reactive Protein (01/21/2025 11:43 AM EST) [facility] C-Reactive Protein 0.40 0 - 0.49 mg/dL 01/21/2025 1:46 PM EST [facility] Blood Blood specimen / Unknown 01/21/2025 11:43 AM EST 01/21/2025 1:09 PM EST Tanna Pagan MD LAB BLOOD ORDERABLES Fi nal Result Performing Organization Address [facility]/[place] [address], [place] [address] * (ABNORMAL) POCT Glucose, Fingerstick (01/21/2025 11:29 AM EST) POC Glucose 105(H) 65 - 99 mg/dL 01/21/2025 11:29 AM EST Blood specimen / Unknown 01/21/2025 11:29 AM EST 01/21/2025 11:30 AM EST Guille Mcguire MD POINT OF CARE TEST ORDERABLES Final Result HOSPITAL LAB See Below * ECHOCARDIOGRAM COMPREHENSIVE WITH CONTRAST (01/21/2025 9:15 AM EST) LV velasco vol 3D 173.0 mL LV Diastolic Volume 110 mL LV sys vol 3D 77.0 mL LV Systolic Volume 53 mL IVS (F:0.6-0.9, M:0.6-1.0) 0.7 cm IVS Mean (F:0.6-0.9, M:0.6-1.0) 0.7 cm LVIDD (F:3.8-5.2, M:4.2-5.8) 4.3 cm LVIDD Mean (F:3.8-5.2, M:4.2-5.8) 4.3 cm LVIDS (F:2.2-3.5, M:2.5-4.0) 3.2 cm LVIDS (F:2.2-3.5, M:2.5-4.0) 3.2 cm LVOT diameter 2.0 cm LVOT diameter mean 2.0 cm LVOT mn grad mean 3.0 mmHg LVOT VTI MEAN 21.2 cm LVOT mn grad 3.0 mmHg LVOT VTI 21.2 cm LVOT peak sivakumar 1.1 m/s LVOT peak sivakumar mean 1.1 m/s PW (F:0.6-0.9, M:0.6-1.0) 0.8 cm PW Mean (F:0.6-0.9, M:0.6-1.0) 0.8 cm MV E' Lateral Velocity 17.70 cm/s MV E' Lateral Velocity Mean 17.70 cm/s MV E' Septal Velocity 10.80 cm/s MV E' Septal Velocity Mean 10.80 cm/s LA sup-inf (apical 2-ch view) 5.52 cm LA volume 50.6 mL RA area 15.2 cm2 RA 2D Volume 39.9 mL Sinuses of Valsalva 2.9 cm Sinuses of Valsalva Mean 2.9 cm Ascending aorta 2.6 cm Ascending aorta mean 2.6 cm IVC Expiration Diameter 1.3 cm IVC Expiration Diameter Mean 1.3 cm IVC Inspiration Diameter 0.3 cm IVC Inspiration Diameter Mean 0.3 cm MV Peak E-Wave 94.7 cm/s MV Peak E-Wave Mean 94.7 cm/s MV mean gradient mean 2.0 mmHg MV VTI MEAN 18.1 cm MV mean gradient 2.0 mmHg MV VTI 18.1 cm MV peak gradient 4.0 mmHg RVID d 4.1 cm RVID d Mean 4.1 cm RV Free wall pk S' 14.7 cm/s RV Free wall pk S' Mean 14.7 cm/s Heart Rate 102 bpm BP Systolic 126 mmHg BP Diastolic 69 mmHg Height 66.00 inches Weight 152.00 lbs LA Volume Index (16-34) 28.4 mL/m2 E/E' ratio 5.35 LVOT stroke volume 67 mL LVOT area 3.1 cm2 MV valve area by continuity eq 3.7 cm2 AV LVOT peak gradient 4.8 mmHg SVI 37 mL/m2 Sinuses of Valsalva Index 1.6 cm/m2 EF - 3D Echo 55 % LA Volume Index 22.4 mL/m2 E/E' Average 7.1 IVCPERCENTCOLLAPSE 0.77 % E/E' Septal 8.8 E/E' Lateral 5.4 LVOT SI 37.40 mL/m2 Left Ventricular Cardiac Index 3.8 L/min/m2 Left Ventricular Cardiac Output 6.8 L/min BSA 1.78 m2 LV Diastolic Volume Index (F:29-61, M:35-75) 61.8 mL/m2 Harirs BP EF (55-75) 52 % LV Systolic Volume Index (F:8-24, M:11-31) 29.8 mL/m2 LV mass 96.8 g LV Mass Index (F:43-95, M:49-115) 54.4 g/m2 LV RWT 0.37 Ascending aorta Index 1.5 cm/m2 Anatomical Region Laterality Modality Heart Ultrasound Narrative 01/21/2025 10:30 AM EST Left ventricular systolic function is normal with an estimated ejection fraction of 55-59%. Right ventricular systolic function is normal. There are no hemodynamically significant valvular abnormalities. There is no previous study for comparison in our system. Technical Details Definity contrast was used during the study. Overall the study quality was adequate. The study was technically difficult due to patient's body habitus and heart rhythm. 3D echocardiographic imaging of left ventricle structure and function was performed demonstrating the following study findings. Left Ventricle The left ventricle is normal in size. Wall thickness is normal. Left ventricular systolic function is normal with an estimated ejection fraction of 55-59%. No wall motion abnormalities are present. Diastolic function is normal. Right Ventricle The right ventricle is normal in size. Right ventricular systolic function is normal. Left Atrium Left atrial size is normal. Right Atrium Right atrial size is normal. Based on IVC diameter and collapse, right atrial pressure is estimated to be normal (3 mmHg). Mitral Valve The mitral valve is structurally normal. There is mild mitral regurgitation. Tricuspid Valve The tricuspid valve is structurally normal. There is mild tricuspid regurgitation. The absence of sufficient tricuspid regurgitation precludes estimation of right ventricular systolic pressure. Aortic Valve The aortic valve is tricuspid. There is no aortic regurgitation. Pulmonic Valve The pulmonic valve was not well visualized. There is trace pulmonic regurgitation. Ascending Aorta The aortic root dimension is normal. Pericardium There is no pericardial effusion. Prior Study There is no previous study for comparison in our system. us Harjinder Gtz MD CV ECHO ORDERABLES Final Resu lt * CT Abdomen+pelvis w/o contrast (01/20/2025 10:04 PM EST) Anatomical Region Laterality Modality Abdomen, Pelvis Computed Tomogra phy 01/20/2025 10:0 0 PM EST Impressions 01/21/2025 3:32 AM EST Obstructing 0.8 cm and 0.7 cm right [...] a mildly prominent right extrarenal pelvis. No right-sided perinephric inflammatory changes or perinephric fluid collections. [...] Merary Smith telephone at 01/21/2025 2:31 AM AIR CONDITIONING SPECIALIST and it was ascertained that the content and urgency of the report was understood at the time of direct communication. Interpreted by: Jabari Carmichael MD Stock Tracer I personally reviewed the images and the resident's preliminary report and AGREE with the report as it is now presented ([id number]). Narrative 01/21/2025 3:32 AM EST EXAMINATION: CT ABDOMEN AND PELVIS WITHOUT CONTRAST CLINICAL INFORMATION: right flank pain, hx of kidney stones. COMPARISON: None available. TECHNIQUE: Multidetector volumetric imaging was performed from the lung bases through the pubic symphysis following the administration of: Oral contrast: None Intravenous contrast: None Sagittal and coronal reformatted images were obtained on the technologist's workstation. This CT examination was performed using dose optimization techniques as appropriate, variously including the following: *Automated exposure control *Adjustment of mA and/or kV according to patient size (this includes techniques or standardized protocols for targeted exams where dose is matched to indication/reason for exam; i.e. extremities or head) *Use of iterative reconstruction technique Total exam dose-length product 366.2 mGy-cm. FINDINGS: LUNG BASES: Visualized lung bases and mediastinum are normal. No pleural effusion. Breast implants. LIVER, GALLBLADDER, BILIARY TREE: The non-contrast liver is normal in size, shape, and attenuation. No focal hepatic lesion or biliary ductal dilatation is present. The gallbladder is unremarkable with no evidence of radiopaque gallstones, gallbladder wall thickening, or obvious pericholecystic inflammatory changes. PANCREAS: Normal; no mass or surrounding fluid. SPLEEN: Normal size. No focal lesion. ADRENAL GLANDS: Normal; no mass. KIDNEYS AND URETERS: Bilateral renal calculi. At the right ureteropelvic junction there are 2 adjacent obstructing calculi measuring 0.7 cm and 0.8 cm with mean 1590 HU. There is mild right hydronephrosis with moderate hydroureter. There is also a smaller nonobstructing 0.2 cm calculus in the right midpole. Multiple phleboliths and calcifications within the adnexa limit evaluation for a definitive ureteral stone. There are multiple calculi in the left kidney, the largest measures 0.7 cm within the left midpole Hounsfield unit 1021HU. The kidneys are normal in size, shape, and attenuation. BLADDER: No focal wall thickening seen. No bladder calculi. GASTROINTESTINAL TRACT: Stomach and small bowel non-dilated. No colonic wall thickening or pericolonic inflammatory changes. Normal appendix. ABDOMINAL WALL: No hernia seen. LYMPHOVASCULAR STRUCTURES: No lymphadenopathy. The aorta is normal in caliber. PELVIC VISCERA: Unremarkable. RETROPERITONEUM: No fluid collection or mass. OSSEOUS STRUCTURES: No acute or suspicious osseous abnormality. Procedure Note Sterling Onofre MD - 01/21/2025 EXAMINATION: CT ABDOMEN AND PELVIS WITHOUT CONTRAST CLINICAL INFORMATION: right flank pain, hx of kidney stones. COMPARISON: None available. TECHNIQUE: Multidetector volumetric imaging was performed from the lung bases through the pubic symphysis following the administration of: Oral contrast: None Intravenous contrast: None Sagittal and coronal reformatted images were obtained on the technologist's workstation. This CT examination was performed using dose optimization techniques as appropriate, variously including the following: *Automated exposure control *Adjustment of mA and/or kV according to patient size (this includes techniques or standardized protocols for targeted exams where dose is matched to indication/reason for exam; i.e. extremities or head) *Use of iterative reconstruction technique Total exam dose-length product 366.2 mGy-cm. FINDINGS: LUNG BASES: Visualized lung bases and mediastinum are normal. No pleural effusion. Breast implants. LIVER, GALLBLADDER, BILIARY TREE: The non-contrast liver is normal in size, shape, and attenuation. No focal hepatic lesion or biliary ductal dilatation is present. The gallbladder is unremarkable with no evidence of radiopaque gallstones, gallbladder wall thickening, or obvious pericholecystic inflammatory changes. PANCREAS: Normal; no mass or surrounding fluid. SPLEEN: Normal size. No focal lesion. ADRENAL GLANDS: Normal; no mass. KIDNEYS AND URETERS: Bilateral renal calculi. At the right ureteropelvic junction there are 2 adjacent obstructing calculi measuring 0.7 cm and 0.8 cm with mean 1590 HU. There is mild right hydronephrosis with moderate hydroureter. There is also a smaller nonobstructing 0.2 cm calculus in the right midpole. Multiple phleboliths and calcifications within the adnexa limit evaluation for a definitive ureteral stone. There are multiple calculi in the left kidney, the largest measures 0.7 cm within the left midpole Hounsfield unit 1021HU. The kidneys are normal in size, shape, and attenuation. BLADDER: No focal wall thickening seen. No bladder calculi. GASTROINTESTINAL TRACT: Stomach and small bowel non-dilated. No colonic wall thickening or pericolonic inflammatory changes. Normal appendix. ABDOMINAL WALL: No hernia seen. LYMPHOVASCULAR STRUCTURES: No lymphadenopathy. The aorta is normal in caliber. PELVIC VISCERA: Unremarkable. RETROPERITONEUM: No fluid collection or mass. OSSEOUS STRUCTURES: No acute or suspicious osseous abnormality. IMPRESSION: Obstructing 0.8 cm and 0.7 cm right [...] a mildly prominent right extrarenal pelvis. No right-sided perinephric inflammatory changes or perinephric fluid collections. [...] Merary Smith telephone at 01/21/2025 2:31 AM AIR CONDITIONING SPECIALIST and it was ascertained that the content and urgency of the report was understood at the time of direct communication. Interpreted by: Jabari Carmichael MD Stock Tracer I personally reviewed the images and the resident's preliminary report and AGREE with the report as it is now presented ([email or web address]). us Guille Mcguire MD IMG CT ORDERABLES Final Result * (ABNORMAL) Urinalysis with Reflex to Microscopic and Culture (01/20/2025 8:27 PM EST) Color Yellow 01/20/2025 9:29 PM [facility] Clarity Clear 01/20/2025 9:29 PM [facility] Specific [place] 1.020 1.005 - 1.030 01/20/2025 9:29 PM [facility] pH 6.0 5.0 - 8.0 01/20/2025 9:29 PM [facility] Leukocyte Esterase Small(A) Negative 01/20/2025 9:29 PM [facility] Nitrite Negative Negative 01/20/2025 9:29 PM [facility] Protein 30(A) NEG^Negative mg/dL 01/20/2025 9:29 PM [facility] Glucose Negative Negative mg/dL 01/20/2025 9:29 PM [facility] Ketones 15(A) NEG^Negative mg/dL 01/20/2025 9:29 PM [facility] Blood Small(A) Negative 01/20/2025 9:29 PM [facility] Bilirubin Negative Negative 01/20/2025 9:29 PM [facility] Urine Urine specimen obtained by clean catch procedure / Unknown 01/20/2025 8:27 PM EST 01/20/2025 8:52 PM EST Guille Mcguire MD URINE ORDERABLES Final Result Performing Organization Address [facility] [place] [address], [place] [address] * CR Abdomen Archive for Reference only (01/20/2025 7:13 PM EST) Narrative QUINCY - 01/20/2025 7:13 PM EST This study has been auto finalized and does not contain a result. File Room Provider IMG DIGITIZE FILMS Final Resu lt Performing Organization Address [facility] Co de Phone Number QUINCY [phone] * (ABNORMAL) TSH, HIGHLY SENSITIVE (01/20/2025 6:21 PM EST) TSH, Highly Sensitive <0.01(L) 0.27 - 4.20 mIU/L 01/20/2025 8:25 PM EST [facility] Blood Blood specimen / Unknown 01/20/2025 6:21 PM EST 01/20/2025 7:11 PM EST Jessenia Minaya PA-C LAB BLOOD ORDERABLES Final Re sult Performing Organization Address [facility] [place] Number [place] [address], [place] [address] from Last 3 Months Insurance [employer] [id number] [facility] [place] [id number] [facility] Advance Directives * Full Code (Latest Code Status on File) Date Activated Date Inactivated Comments 01/20/2025 8:36 PM
--- OUTSIDE RECORDS SUMMARY | 2025-02-13 17:43 | XMS_ITS | Encounter Summary ---
Author Organization Formerly [facility] Address [address] [place] [address] Phone Care Team Providers Care Wind Turbine Engineer Name Role Phone Pcp, Not Required Primary Care Provider Unavaila ble Encounter Details Date Type Department Care Team (Late st Contact Info) Description 10/08/2024 Procedure Pass [facility], Ct Scan - [address] [address] Social History Tobacco Use Types Packs/Day Years [...] 12:28 PM EDT Ana Gonzalez, YOLANDA * [place] Suicide Severity Rating Scale (Screener/Recent Self-Report) Question [...] Description 02/17/2025 10:00 AM EST Office Visit [facility] [address] [place] [address] Nikita Mireles PA-C [address] [place] [address] [place] [address] Karyna Aguirre, PT [address] [place] [address] [email or web address] 02/19/2025 1:00 PM EST Office Visit [address] [place] [address] Nikita Mireles PA-C [address] [place] [address] [place] [address] Karyna Aguirre, PT [address] [place] [address] [email or web address] 02/22/2025 10:00 AM EST Office Visit [address] [address] Nikita Mireles PA-C [address] [place] [address] [place] [address] Karyna Aguirre, PT [address] [place] [address] [email or web address] 02/24/2025 10:45 AM EST Office Visit [address] [place] [address] Nikita Mireles PA-C [address] [place] [address] [place] [address] Karyna Aguirre, PT [address] [place] [address] [email or web address] 03/02/2025 2:00 PM EST Office Visit [facility] [address] [place] [address] [place] [address] Nikita Mireles PA-C [address] [place] [address] [place] [address] [email or web address] documented as of this encounter Visit Diagnoses Not on filedocumented in this encounter Care Teams Wind Turbine Engineer Relationship Specialty Start Date End Date Pcp, Not Required PCP - General 11/09/15 documented as of this encounter Additional Source Comments The information contained in this document represents components of the legal health record. It is not the complete legal health record.[facility]
--- OUTSIDE RECORDS SUMMARY | 2025-02-13 17:43 | XMS_ITS | Clinical Summary ---
Author Organization [facility] Address [address] [place] [address] Phone Care Team Providers Care Inventory Accountant Name Role Phone Pcp, Not Required Primary [...] Encounters Date Type Department Care Team Description 02/12/2025 11:30 AM EST Office Visit [facility] [address] [place] [address] Nikita Mireles PA-C Clark, Karyna Selby, PT Weakness of right shoulder (Primary Dx) 02/10/2025 Telephone [facility] [address] [place] [address] [place] [address] Karyna Aguirre, PT Appointment 01/25/[address] [place] [address] Karyna Aguirre, PT Appointment 01/18/2025 11:30 AM EST Office Visit [address] [place] [address] Nikita Mireles PA-C Clark, Karyna Selby, PT Weakness of right shoulder (Primary Dx) 01/11/2025 10:00 AM EST Office Visit [address] [place] [address] Nikita Mireles PA-C Clark, Karyna Selby, PT Weakness of right shoulder (Primary Dx) 01/06/2025 10:00 AM EDT Office Visit [facility] [address] [place] [address] Nikita Mireles PA-C Clark, Karyna Selby, PT Weakness of right shoulder (Primary Dx) 12/30/2024 11:15 AM EDT Office Visit [facility] [address] [place] [address] Jalen Sweeney DO Traumatic complete tear of right rotator cuff, initial encounter (Primary Dx); H/O repair of right rotator cuff 12/30/2024 10:00 AM EDT Office Visit [facility] [address] [place] [address] Nikita Mireles PA-C Clark, Elizabeth Quinn, PT Weakness of right shoulder (Primary Dx) 12/28/2024 10:00 AM EDT Office Visit [facility] [address] [place] [address] Nikita Mireles PA-C Clark, Karyna Selby, PT Weakness of right shoulder (Primary Dx) 12/23/2024 Telephone [facility] [address] [place] [address] Karyna Aguirre, PT Appointment 12/18/2024 11:30 AM EDT Office Visit [facility] [address] [place] [address] Niikta Mireles PA-C Clark, Elizabeth Quinn, PT Weakness of right shoulder (Primary Dx) 12/16/2024 10:00 AM EDT Office Visit [facility] [address] [place] [address] Nikita Mireles PA-C Clark, Elizabeth Quinn, PT Weakness of right shoulder (Primary Dx) 12/09/2024 10:15 AM EDT Office Visit [facility] [address] [place] [address] Nikita Mireles PA-C Bell, Ross, PT Weakness of right shoulder (Primary Dx) 12/04/2024 Telephone [facility] [address] [place] [address] Karyna Aguirre, PT Upcoming appointment 12/02/2024 9:40 AM EDT Office Visit [facility] [address] [place] [address] Nikita Mireles PA-C H/O repair of right rotator cuff (Primary Dx) 11/26/2024 8:45 AM EDT Office Visit [facility] [address] [place] [address] Nikita Mireles PA-C Bell, Ross PT Weakness of right shoulder (Primary Dx) 11/17/2024 6:36 PM EDT - 11/17/2024 11:43 PM EDT Emergency [facility] [address] [place] [address] Kale Cabrera MD Discharge Disposition: Home or Self Care from [...] Description 02/17/2025 10:00 AM EST Office Visit [facility] [address] [place] [address] Nikita Mireles PA-C [address] [place] [address] [place] [address] Karyna Aguirre, PT 8 [place] [address] 02/19/2025 1:00 PM EST Office Visit [address] [place] [address] Nikita Mireles PA-C [address] [place] [address] [place] [address] Karyna Aguirre, PT 8 [place] [address] 02/22/2025 10:00 AM EST Office Visit [address] [place] [address] Nikita Mireles PA-C [address] [place] [address] [place] [address] Karyna Aguirre, PT 8 [place] [address] 02/24/2025 10:45 AM EST Office Visit [address] [place] [address] Nikita Mireles PA-C [address] [place] [address] [place] [address] Karyna Aguirre, PT 8 [place] [address] 03/02/2025 2:00 PM EST Office Visit [facility] [address] [place] [address] [place] [address] Nikita Mireles PA-C [address] [place] [address] [place] [address] Health Maintenance Due Date Last Done Comments Adult Td,Tdap Booster 1986 DEPRESSION SCREENING 1998 HEPATITIS C SCREENING 2004 HIV ONE-TIME SCREENING (18-6 5 YEARS) 2004 PAP SMEAR 06/25/2007 INFLUENZA VACCINE (#1) 2024 COVID-19 VACCINE (2024-2 6 season) 2024 SCREENING FOR DIABETES 11/18/2027 5, 11/17/2024 SMOKING STATUS SCREENING (On ce After [...] (0-49 years) Aged Out No longer eligible b ased on patient's age to complete this topic Medical Devices Implanted Type Area Cloth Hauler Device Identifier Shelf Expiration Date Model / Serial / Lot Breast Breast Sandy All-Suture 1.8mm Q-Fix Knotless W/1 Ub Sut Bl - [id number] Implanted:Qty: 1 on 11/12/2024 by Jalen Sweeney DO at [facility] Right: Shoulder [employer] [id number] 07/18/2027 [id number] / / [id number] Sandy All-Suture 2.8mm Q-Fix W/2 Minitape Suture Blue And Cobraid White - [id number] Implanted:Qty: 1 on 11/12/2024 by Jalen Sweeney DO at [facility] Right: Shoulder [employer] 03/20/2027 [id number] / / [id number] Sandy Suture 4.5mm Arthroscopy Reelx Stt Peek Ss Core Knotless Shapr Tip Expandable Bx/5ea - [id number] Implanted:Qty: 1 on 11/12/2024 by Jalen Sweeney DO at [facility] Right: Shoulder [employer] [id number] 07/28/2026 [id number] / / [id number] Sandy Suture 4.5mm Arthroscopy Reelx Stt Peek Ss Core Knotless Shapr Tip Expandable Bx/5ea - [id number] Implanted:Qty: 1 on 11/12/2024 by Jalen Sweeney DO at [facility] Right: Shoulder [employer] [id number] 05/20/2026 [id number] / / [id number] Procedures Procedure Name Priority Date/Time Associated Diagnosis [...] POCT GLUCOSE Routine 11/17/2024 6:37 PM EDT from Last 3 Months Results * [...] LAB BLOOD BKR CLEO HAY Final Result [address] [address] * Basic metabolic panel (11/17/2024 9:54 PM [...] us Kale Cabrera MD LAB BLOOD BKR ORDE RABLES Final Result [address] [address] * (ABNORMAL) Urinalysis w/reflex Urine Culture (11/17/2024 [...] MD LAB URINE ORDERABL ES Final Result [address] [address] * (ABNORMAL) Urine Culture (11/17/2024 9:50 PM EDT) Special Requests None Reflexed from [id number] 11/17/2024 10:31 PM EDT [facility] Urine Culture >100,000 colony forming units per mL MIXED JOSELINE (3 OR MORE COLONY TYPES) Culture indicates contamination . Please resubmit if necessary.(A) 11/19/2024 7:47 AM EDT [facility] Urine 11/17/2024 9:50 PM EDT 11/17/2024 10:11 PM EDT Kale Cabrera MD LAB MICROBIOLOGY C ULTURE ORDERABLES Final Result Performing Organization Address [facility] Co de Phone Number [address] [address] * (ABNORMAL) Urine sediment (11/17/2024 9:50 PM [...] ORDERABL ES Final Result Performing Organization Address [facility] Co de Phone Number [address] [address] * ECG 12-LEAD (11/17/2024 6:50 PM EDT) Ventricular Rate EKG/MIN 113 BPM [facility] Atrial Rate 113 BPM [facility] AK Interval 116 ms [facility] QRS Duration 76 ms [facility] QT Interval 328 ms [facility] QTC Interval 449 ms [facility] P [place] 37 degrees [facility] R Wave [place] 53 degrees [facility] T Wave [place] 41 degrees [facility] 11/17/2024 6:50 PM EDT 11/19/2024 9:18 AM EDT Narrative [facility] - 11/19/2024 9:18 AM EDT Sinus tachycardia Otherwise normal ECG When compared with ECG of 08-Oct-2024 16:39, No significant change was found Confirmed by Phong Mendez ([id number]) on 11/19/2024 9:18:11 AM us Ezequiel Mathew MD ECG ORDERABLES Final Result [facility] * (ABNORMAL) POCT Glucose (11/17/2024 6:37 PM EDT) [facility] Glucose, POCT 160(H) 70 - 100 mg/dL [facility] 11/17/2024 6:37 PM EDT 11/18/2024 2:22 AM EDT us Kale Cabrera MD POINT OF CARE TEST ORDERABLES Final Result Performing Organization Address City/[facility] Co de Phone Number [address] [address] from Last 3 Months Insurance [facility] [place] [address] [facility] Naz YOUNGER [place] [facility] [place] [address] [facility] Care Teams Inventory Accountant Relationship Specialty Start Date End Date Pcp, Not Required PCP - General 11/09/15 Additional Source Comments The information contained in this document represents components of the legal health record. It is not the complete legal health record.[facility]
--- OUTSIDE RECORDS SUMMARY | 2025-02-13 17:43 | XMS_ITS | Encounter Summary ---
Author Organization [facility] Address [address] [address] Phone Care Team Providers Care Finnish Rubber Name Role Phone Pcp, Not Required Primary Care Provider Unavaila ble Encounter Details Date Type Department Care Team (Late st Contact Info) Description 02/22/2024 Procedure Pass [facility], Ct Scan - [address] [address] Social History Tobacco Use Types Packs/Day Years [...] 02/22/2024 1:48 AM Teresa Hernandez RN * [place] Suicide Severity Rating Scale (Screener/Recent Self-Report) Question Answer Date of Assessment Author 1. Wish to be (Past 1 Month) No 02/22/2024 1:48 AM Teresa Benedr RN 2. Non-Specific Active Suicidal Thoughts (Past 1 Month) No 02/22/2024 1:48 AM Teresa Bender RN 6. Suicidal Behavior (Lifetime) No 02/22/2024 1:48 AM Teresa Bender RN documented as of this encounter Plan of Treatment Upcoming Encounters Date Type Department Care Team (Late st Contact Info) Description 02/17/2025 10:00 AM EST Office Visit [facility] [address] [place] [address] Nikita Mireles PA-C [address] [place] [address] [place] [address] Karyna Aguirre, PT [address] [place] [address] 02/19/2025 1:00 PM EST Office Visit [facility] [address] [place] [address] Nikita Mireles PA-C [address] [place] [address] [place] [address] Karyna Aguirre, PT [address] [place] [address] 02/22/2025 10:00 AM EST Office Visit [facility] [address] [place] [address] Nikita Mireles PA-C [address] [place] [address] [place] [address] Karyna Aguirre, PT [address] [place] [address] 02/24/2025 10:45 AM EST Office Visit [facility] [address] [place] [address] Nikita Mireles PA-C [address] [place] [address] [place] [address] Karyna Aguirre, PT [address] [place] [address] 03/02/2025 2:00 PM EST Office Visit [facility] [address] [place] [address] [place] [address] Nikita Mireles PA-C [address] [place] [address] [place] [address] documented as of this encounter Visit Diagnoses Not on filedocumented in this encounter Additional Health Concerns Infection Onset Date Last Indicated Resolved Time CoV-Risk 06/18/2024 06/18/2024 06/29/2024 1:23 AM EDT documented as of this encounter Care Teams Finnish Rubber Relationship Specialty Start Date End Date Pcp, Not Required PCP - General 11/09/15 documented as of this encounter Additional Source Comments The information contained in this document represents components of the legal health record. It is not the complete legal health record.[facility]
--- OUTSIDE RECORDS SUMMARY | 2025-02-13 17:43 | XMS_ITS | Encounter Summary ---
Author Organization [facility] Address [address] [facility] [address] [place] [address] Phone Care Team Providers Care Clinical Resource Coordinator Name Role Phone Pcp, Not Required Primary Care Provider Unavaila ble Encounter Details Date Type Department Care Team (Late st Contact Info) Description 08/08/2024 Procedure Pass [facility], Ct Scan - [address] [address] Social History Tobacco Use Types Packs/Day Years [...] 10:51 PM EDT Dallin Pretty RN * [place] Suicide Severity Rating Scale (Screener/Recent Self-Report) Question [...] 02/17/2025 10:00 AM EST Office Visit [facility] [address] [place] [address] Nikita Mireles PA-C [address] [place] [address] [place] [address] Karyna Aguirre, PT 8 [place] [address] 02/19/2025 1:00 PM EST Office Visit [facility] [address] [place] [address] Nikita Mireles PA-C [address] [place] [address] [place] [address] Karyna Aguirre, PT 8 [place] [address] 02/22/2025 10:00 AM EST Office Visit [facility] [address] [place] [address] Nikita Mireles PA-C [address] [place] [address] [place] [address] Karyna Aguirre, PT 8 [place] [address] 02/24/2025 10:45 AM EST Office Visit [facility] [address] [place] [address] Nikita Mireles PA-C [address] [place] [address] [place] [address] Karyna Aguirre, PT 8 [place] [address] 03/02/2025 2:00 PM EST Office Visit [facility] [address] [place] [address] [place] [address] Nikita Mireles PA-C [address] [place] [address] [place] [address] documented as of this encounter Visit Diagnoses Not on filedocumented in this encounter Care Teams Clinical Resource Coordinator Relationship Specialty Start Date End Date Pcp, Not Required PCP - General 11/09/15 documented as of this encounter Additional Source Comments The information contained in this document represents components of the legal health record. It is not the complete legal health record.[facility]
--- OUTSIDE RECORDS SUMMARY | 2025-02-13 17:44 | XMS_ITS ---
Author Organization [address] [address] Phone Care Team Providers Care Warehouse Record Clerk Name Role Phone [facility] Primary Care Provider [phone] [phone] Post Discharge Outreach Status:Complete (Closed) Start date:02/09/2025 Enrollment date:02/10/2025 Enrollment reason:Inpatient observation discharge End date:02/11/2025 Close reason:Goals Met / No further services needed Overview 02/11 pt asked for call back later Continued Care and Services Coordination
--- OUTSIDE RECORDS SUMMARY | 2025-02-13 17:44 | XMS_ITS | Encounter Summary ---
Author Organization [facility] Address [address] [place] [address] Care Team Providers Care Placing Judge Name Role Phone [facility] Primary Care Provider [phone] Reason for Visit * Reason Onset Date Comments Appointment 02/08/2025 Encounter Details Date Type Department Care Team ([facility] st Contact Info) Description 02/08/2025 Telephone [facility] [address] [address] Quentin Bartlett MD [address] [place] [phone] Appointment Social History Tobacco Use Types [...] things needed for daily living? No 02/02/2025 [facility] Utilities Answer Date Recorded In the [...] 02/02, please arrange follow up with next [facility] endo or general urologist for definitive stone management, next 2-3 weeks. Thanks, Mario Bartlett documented in this encounter Plan of Treatment Upcoming Encounters Date Type Department Care Team (Late st Contact Info) Description 02/22/2025 9:00 AM EST Office Visit [facility] [address] [place] [address] [address] [facility] [address] [place] [address] Anand Robbins MD [address] [place] [address] 06/02/2025 1:45 PM EDT Office Visit [facility] [address] [facility] [place], [place] [address] Katina Vasquez MD 35 [facility] 4 [place] [address] documented as of this encounter Visit Diagnoses Not on filedocumented in this encounter Care Teams Placing Judge Relationship Specialty Start Date End Date [address] [address] PCP - General 01/31/25 documented as of this encounter
--- OUTSIDE RECORDS SUMMARY | 2025-02-13 17:44 | XMS_ITS | Encounter Summary ---
Author Organization [facility] Address [address] [place] [address] Care Team Providers Care Speedometer Inspector Name Role Phone [facility] Primary Care Provider [phone] [phone] Reason for Visit * Reason Comments Hospital Discharge Follow Up Encounter Details Date Type Department Care Team (Late st Contact Info) Description 02/10/2025 Patient Outreach [facility] Call Center [address] [place] [phone] Alicia Atkins RN Hospital Discharge Follow Up [...] things needed for daily living? No 02/02/2025 [facility] Utilities Answer Date Recorded In the past 12 months has [facility] [employer], [employer], oil, or water [employer] threatened to shut off services in your [...] - 02/10/2025 8:23 AM EST Copied from [facility] #[id number]. Topic: Discharge Patient Outreach - [place] >> Feb 10, 2025 8:23 AM Alicia Ga wrote: Outreach call for [place]. Alicia Atkins RN documented in this encounter Plan of Treatment Upcoming Encounters Date Type Department Care Team (Late st Contact Info) Description 02/22/2025 9:00 AM EST Office Visit [facility] [address] [facility] [address] [facility] [address] [place] [address] Anand Robbins MD [address] [place] [address] 06/02/2025 1:45 PM EDT Office Visit [facility] 35 [facility] NP4 [place] [address] Katina Vasquez MD 35 [facility] 4 [place] [address] documented as of this encounter Visit Diagnoses Not on filedocumented in this encounter Care Teams Speedometer Inspector Relationship Specialty Start Date End Date [address] [place] [address] PCP - General 01/31/25 documented as of this encounter
== END 2025-02-13 17:54 | disposition left against medical advice (07) ==
PROVIDERS: Emergency Provider Emergency Medicine Emergency Medical Services
DX: R00.2 Palpitations (principal); R94.31 Abnormal electrocardiogram [ECG] [EKG]; Z53.29 Procedure and treatment not carried out because of patient's decision for other reasons; J45.909 Unspecified asthma, uncomplicated
CPT/HCPCS: 93005; 99281; 99283

== ENCOUNTER → 2025-02-13 17:02 | Outpatient (BNV) | payer OTHER, SELFPAY | PROVIDERS: Emergency Provider Emergency Medicine Emergency Medical Services; Visit Provider Internal Medicine | DX: R94.31 Abnormal electrocardiogram [ECG] [EKG] (principal); R00.0 Tachycardia, unspecified | CPT/HCPCS: 93010 ==